=== PATIENT | female | born 1975 | race Caucasian/White ===

== ENCOUNTER → 2019-07-17 12:26 | Outpatient (BNVA) | payer MEDICARE, MEDICAID, SELFPAY | PROVIDERS: Family Provider Nurse Practitioner Family; PCP Nurse Practitioner Family; Visit Provider Nurse Practitioner Family | DX: J02.9 Acute pharyngitis, unspecified (principal); R68.89 Other general symptoms and signs; Z79.01 Long term (current) use of anticoagulants; M62.838 Other muscle spasm; E50.9 Vitamin A deficiency, unspecified; K21.9 Gastro-esophageal reflux disease without esophagitis; R05 Cough | CPT/HCPCS: 85610; 87081; 87804; 87880 ==

== ENCOUNTER 2019-07-29 11:52 | Outpatient (CLI) | payer MEDICARE, MEDICAID, SELFPAY ==
[2019-07-29 12:16] LABS: Hematocrit 41.5 % (37.0-47.0); Hemoglobin 13.3 g/dL (11.5-15.3); Lymphocytes # 1.4 10^3/uL (0.8-4.8); Lymphocytes % 27.3 %; Mean Corpuscular Volume 87.4 fL (81-99); Mean Platelet Volume 11.2 fL (7.4-10.4); Monocytes # 0.3 10^3/uL (0.2-0.9); Monocytes % 5.5 %; Neutrophils # 3.4 10^3/uL (1.8-7.7); Nucleated Red Blood Cells % 0 %; Platelet Count 251 10^3/cmm (130-400); Red Blood Count 4.75 10^6/uL (4.1-5.3); Red Cell Distribution Width 13.5 % (12.1-15.1); White Blood Count 5.1 10^3/uL (4.0-10.0)
[2019-07-29 12:53] LABS: Ferritin 55 ng/mL (15-150); Iron 59 ug/dL (37-145); Percent Saturation 16.6 % (20-50); Total Iron Binding Capacity 355 mcg/dl; Unsaturated Iron Binding 296 ug/dL (112-347)
--- NOTE | 2019-07-30 08:23 | ONC FU_ITS ---
Dr. Crespo Patient Follow-Up Note Patient: Heladio Branch Unit #: [id number]: [id number] Dicatated By: Rufus Crespo M.D.Date of Visit:Jul 29, 2019 Onc Med Follow-up/Prog Note Chief Complaint: Recurrent thromboembolism/anemia. History of Present Illness: This is a 44 year-old woman with recurrent thromboembolism. She also has had evidence of iron deficiency anemia. In November 2013 she was found on CT pulmonary angiogram to have multiple pulmonary emboli. Lower extremity venous Dopplers at that time were negative. She was treated with IV heparin followed by long-term warfarin therapy. I had seen her initially on 05/02/2018. She had been seen at [facility] 3 weeks earlier with pain and swelling in her left leg. A venous Doppler had shown evidence of deep vein thrombosis. Prior to that she had several subtherapeutic INRs. She had continued anticoagulation with warfarin, and the most recent INR prior to that visit had been therapeutic at 2.8. On evaluation, she was noted to be mildly anemic with hypochromic/microcytic red cell indices. Her transferrin saturation was low at 6.1% and ferritin was low at 16 ng/mL, consistent with iron deficiency. Her anti-cardiolipin antibody screen was negative. Her repeat venous Doppler studies showed no evidence for lower extremity deep vein thrombosis, and there was no evidence for underlying malignancy on CT scans of the chest, abdomen, and pelvis. She was advised to increase her iron supplement to twice daily, and she continued anticoagulation with warfarin. She has multiple medical illnesses including hypertension, coronary artery disease with previous myocardial infarction, and a suspected TIA. She also has obesity, obstructive sleep apnea, GERD, anxiety/depression, somatizations disorder, and PTSD. She had a prior history of iron deficiency anemia, which apparently was severe enough to require transfusion in 2017. There was also a reported history of substance abuse. INTERIM HISTORY: As of her follow-up visit on 02/26/2019 her hemoglobin remained borderline low at 12.5 g with hypochromic/microcytic red cell indices. Her transferrin saturation was low at 13.6 g with low ferritin at 27.0 ng/mL, consistent with iron deficiency. As the iron deficiency was not correcting on oral iron replacement, she was given parenteral iron replacement with a single infusion of Injectafer, which she tolerated well. She is seen for a follow-up visit. She continues to complain that she has no energy. She is able to do light work. Her ECOG score is 1. She has good appetite. She has not had fever. She does report having hot flashes and sweating. Approximately 2 weeks ago she started antibiotic therapy with amoxicillin for earache and chest congestion. She complains that she has had a constant headache ever since then. She has shortness of breath with activity. She says that she cannot walk to the mailbox now without getting out of breath. Her cough is getting better now. She still has some tightness in her chest. She has no GI complaints. She has some urinary frequency and bladder incontinence. Her menstrual periods are regular, but they are heavy, and she has associated clots. She has aching in her joints, but that does tend to be associated with bad weather. She has had tingling over her scalp associated with the headache. She also has some tingling in her hands. She has ongoing problems with anxiety/depression. Medications: ALPRAZolam 1 Tablet (of 2 mg) Oral t.i.d. PRN, Amoxicillin 1 Tablet (of 500 mg) Oral daily, ARIPiprazole 1 Tablet (of 2 mg) Oral daily, cbd gummies 1 Caplet daily, Desipramine HCl 1 Tablet (of 75 mg) Oral daily, Desvenlafaxine Succinate ER 1 Tablet (of 100 mg) Tablet SR 24 HR Oral daily, hydroCHLOROthiazide 1 Tablet (of 12.5 mg) Oral daily, Ibuprofen 2 Tablet (of 200 mg) Oral PRN, Isosorbide Mononitrate 1 Tablet (of 20 mg) Oral b.i.d., Metoprolol Tartrate 1 Tablet (of 25 mg) Oral b.i.d., Naproxen 1 Tablet (of 500 mg) Oral PRN, Omeprazole 1 Capsule (of 20 mg) Capsule Delayed Release Oral daily, QUEtiapine Fumarate 1 Tablet (of 300 mg) Oral at bedtime, Warfarin Sodium (2 mg) Tablet Oral Take as Directed Allergies: Cymbalta, Effexor XR, fish, LaMICtal, Lexapro, PROzac, Topamax, and Wellbutrin. Review of Systems: Constitutional - She has no energy. She does all of her housework. Her appetite is good and her weight is up 5 pounds. No fever or chills. She has hot flashes and sweating, both during the day and at night. ECOG score is 1, ENMT - No sinus congestion/drainage. No mouth sores. She has a sore throat. No difficulty swallowing, Hematologic/Lymphatic - She bruises easily, Respiratory - She has shortness of breath with activity. No cough. No pleuritic pain or hemoptysis, Cardiovascular - She has chest pressure and tightness. No palpitations, Gastrointestinal - No nausea or vomiting. No heartburn or acid reflux. No diarrhea or constipation. No blood in the stool or black stools, Genitourinary (F) - No dysuria or hematuria. She has urinary frequency. No urgency. She has incontinence, Musculoskeletal - Her bones and joints ache. She feels that is due to the weather, Integumentary - No skin complications, Neurologic - She started taking Amoxicillin for chest congestion about 2 weeks ago. Since then, she has had a headache that does not completely go away, even with medication. The pain is in the base of her neck and her hairline feels tingly. No dizziness. She has tingling in her hands, Psychiatric - She has anxiety and depression. No insomnia. Vital Signs: Performed on Jul 29, 2019 13:52 Height - 64.00 in BP - 148/100 mm(hg) (HIGH) Performed on Jul 29, 2019 13:11 Height - 64.00 in Weight - 335.8 lbs (HIGH) BSA - 2.44 sq.m BMI - 57.64 (HIGH) Temperature - 97.2 F (LOW) Pulse - 98 /min Respiration - 24 /min BP - 177/103 mm(hg) (HIGH) O2 Sat - 98 % Pain - 10 Physical Examination: Constitutional - She does not appear acutely ill. , Eyes - Sclerae nonicteric. Conjunctivae clear, ENMT - No lesions noted in the oral cavity, Hematologic/Lymphatic - No cervical, clavicular, or axillary adenopathy, Respiratory - Lungs sound clear, Cardiovascular - Heart is regular with no murmur, gallop or rub noted, Abdomen - Distended. Liver and spleen are not enlarged. There is no abdominal mass or ascites noted and there is no inguinal adenopathy, Extremities - No edema, Neurologic - No focal neurologic deficits noted. Lab/Imaging: Test performed on Jul 29, 2019 11:59 Ferritin 55 ng/mL Iron 59 ug/dL UIBC 296 ug/dL WBC 5.1 10 3/uL RBC 4.75 10 6/uL HGB 13.3 g/dL HCT 41.5 % MCV 87.4 fL MCH 28.0 pg MCHC 32.0 g/dL RDW 13.5 % Platelet Count 251 10 3/cmm MPV 11.2 fL Neutrophils 3.4 10 3/uL Lymphocytes 1.4 10 3/uL Monocytes 0.3 10 3/uL Eosinophils 0.0 10 3/uL Basophils 0.0 10 3/uL Neutrophil % 67.0 % Lymphocyte % 27.3 % Monocyte % 5.5 % Eosinophil % 0.0 % Basophils % 0.0 % Test performed on Jun 04, 2019 14:26 Sodium 137 mmol/L Potassium 3.7 mmol/L % Iron Saturation 18.2 % Chloride 98 mmol/L CO2 25 mmol/L Anion Gap 17.7 BUN 5 mg/dL Creatinine 0.9 mg/dL Cr Clearance (Est) 192.5400 mL/min eGFR 68.7 mL/min Glucose 106 mg/dl Calcium 9.0 mg/dL Protein, Total 7.5 g/dL Albumin 4.5 g/dL Globulin 3.0 gm/dL Bilirubin, Total 0.2 mg/dL ALT (SGPT) 23 U/L AST (SGOT) 20 U/L Alkaline Phosphatase 108 U/L Test performed on Feb 26, 2019 09:35 Cholesterol, Total 193 mg/dL TSH 1.61 uIU/mL Vitamin B12 343 pg/mL Triglycerides 173 mg/dL LDL Cholesterol 115 mg/dL HDL Cholesterol 43 mg/dL Cholesterol/HDL Ratio 4.49 mg/dL LDL / HDL Ratio 2.67 RATIO Impression: 1. Patient with recurrent thromboembolism including an episode of unprovoked pulmonary emboli in November 2013 and a recent episode of left lower extremity deep vein thrombosis while on anticoagulation with warfarin. The 2nd episode may have been related to subtherapeutic anticoagulation. 2. She has iron deficiency anemiafor which she has been on oral iron supplementation. Her other medical illnesses include: 3. Hypertension. 4. She has reported history of myocardial infarction in 2007. It is uncertain how well that was documented. Records indicate she had normal stress test in 2014. 5. Obesity. 6. Obstructive sleep apnea. 7. GERD. 8. Anxiety/depression. 9. PTSD. 10. Somatizations disorder. 11. There is reported history of substance abuse. Her evaluation in April 2018 showed no underlying cause for thromboembolism. She then continued on anticoagulation with warfarin with no further thrombosis. During follow-up she continued to have significant fatigue. As of her visit on 02/26/2019 she remained mildly anemic, and her serum iron studies and ferritin were clearly consistent with iron deficiency. As she was not correcting the iron deficiency with oral iron, she was given parenteral iron replacement with a single infusion of Injectafer. Her follow-up laboratory studies in March did show significant increase in the transferrin saturation and ferritin. Since then her hemoglobin has remained adequate at 13.8 g, but the transferrin saturation and ferritin are again borderline low, and it appears likely that she is getting iron deficient again. Plan: For now she will remain on oral iron supplementation. She will continue anticoagulation with warfarin. I will recheck laboratory studies in 3 months. I will tentatively plan a follow-up visit in 6 months. If she becomes more overtly iron deficient, she will be given further parenteral iron replacement with Injectafer. Signed By: Rufus Crespo M.D. <<Signature on File>>
== END 2019-07-29 11:53 | disposition home or self-care (01) ==
LOC: ONCMED 11:53
PROVIDERS: Visit Provider Internal Medicine Medical Oncology
DX: D50.9 Iron deficiency anemia, unspecified (principal); I10 Essential (primary) hypertension; I25.10 Atherosclerotic heart disease of native coronary artery without angina pectoris; I25.2 Old myocardial infarction; E66.9 Obesity, unspecified; G47.33 Obstructive sleep apnea (adult) (pediatric); K21.9 Gastro-esophageal reflux disease without esophagitis; F41.8 Other specified anxiety disorders; F43.10 Post-traumatic stress disorder, unspecified; Z79.01 Long term (current) use of anticoagulants; Z86.711 Personal history of pulmonary embolism; Z86.718 Personal history of other venous thrombosis and embolism
CPT/HCPCS: 82728; 83540; 83550; 85025; 99214

== ENCOUNTER 2019-08-07 19:40 | Emergency (ER) | payer MEDICARE, MEDICAID, SELFPAY ==
[2019-08-07 19:41] VITALS: BP 158/111; PULSE 114; RESP 18; TEMP 36.9; O2SAT 97
[2019-08-07 19:42] VITALS: BP 170/89; PULSE 108; RESP 16; TEMP 36.9; O2SAT 96; BMI 58.0
--- NOTE | 2019-08-07 20:02 | XR_ITS ---
WS: [id number] XR chest 1V portable [id number] REASON FOR EXAM: syncope FINDINGS: Comparisons were made to April 23, 2019. The heart and mediastinal interfaces were normal. The lung gomez are well aerated. No pneumonia, pleural effusion, pulmonary edema, or mass effect. The hilum and apices normal. No osseous abnormalities. XR/XR chest 1V portable [id number] IMPRESSION: Negative chest for acute pathology.
--- NOTE | 2019-08-07 20:02 | CTR_ITS ---
PROCEDURE INFORMATION: Exam: CT Head Without Contrast Exam date and time: 08/07/2019 8:32 PM Age: 44 years old Clinical indication: Syncope and collapse TECHNIQUE: Imaging protocol: Computed tomography of the head without contrast. Total DLP: 845.88 mGy-cm Radiation optimization: All CT scans at this facility use at least one of these dose optimization techniques: automated exposure control; mA and/or kV adjustment per patient size (includes targeted exams where dose is matched to clinical indication); or iterative reconstruction. COMPARISON: No relevant prior studies available. FINDINGS: Brain: Normal. No hemorrhage or CT evidence of acute infarction is seen. No mass effect. Ventricles: Normal. No ventriculomegaly. Bones/joints: Unremarkable. No acute fracture. Sinuses: Mild left sphenoid and maxillary sinusitis is appreciated. Mastoid air cells: Visualized mastoid air cells are well aerated. Soft tissues: Unremarkable. CT/CT head wo con* [id number] IMPRESSION: No acute intracranial abnormality. Mild sinusitis. Radiation Dose CTDIVOL = (mGy): DLP = 845.88 (mGy-cm)
[2019-08-07] MEDS: sodium chloride 0.9% 1,000 ML 999 ML IV ×2 (20:08→20:24)
--- NOTE | 2019-08-07 20:08 | PC.NURSE ---
Introduced self to patient and initiated vital signs. Patient presents A&O x 4. NAD, ABCs intact, MAEW and agreeable to treatment. Respirations are even and unlabored. Pt states that the chief complaint for the ER visit today is due to a syncopal episode earler in day and HBP. Pt denies any vision disturbances or lightheadedness but does feel dizzy at present. Bed left in lowest position in semi-fowlers with side rails up.Reassured patient of needs and will continue to monitor.
--- NOTE | 2019-08-07 20:11 | W.ED.NEUROSD ---
HPI - Neuro Symptoms/Deficit General: Chief Complaint: Neuro Symptoms/Deficit Stated Complaint: syncope Time Seen by Provider: 08/07/19 20:02 History of Present Illness: HPI Narrative: Patient comes in today with complaints of syncopal episode. Patient has been diagnosed with the flu 2 days ago at the hospital at [facility]. Patient was ordered Tamiflu and has had 3 doses of the medication. Patient today went out to take the trash out and lost consciousness and fell to the ground. Patient then was brought into the emergency department for concerns of low back pain and diarrhea. Patient did have elevated blood pressure in route to the emergency room and was given labetalol 20 mg and Phenergan for nausea. Patient reports that she has been ill on and off for the last 3 weeks first with an upper respiratory infection and then strep throat. Patient appears mildly unwell. Patient appears in no pain. Patient does have a history of pulmonary emboli which she takes warfarin for. Patient also takes metoprolol and isosorbide routinely. Associated symptoms: Reports malaise Review of Systems General: Reports: 10 or more systems reviewed and unremarkable except in HPI and below Const: Reports: body aches and malaise Resp: Reports: non-productive cough PFSH ED PFSH: Social History Smoking and tobacco status: never smoked Female Reproductive History: Date of last menstrual period: 07/10/19 NIH stroke score NIHSS: Level Of Consciousness - 1a: 0 Level Of Consciousness Questions - 1b: Both Correct Level Of Consciousness Commands - 1c: Both Correct Best Gaze - 2: Normal Visual Aragon - 3: No Visual Loss Facial Palsy - 4: Normal Motor Arm Right - 5: No Drift Motor Arm Left - 5: No Drift Motor Leg Right - 6: No Drift Motor Leg Left - 6: No Drift Limb Ataxia - 7: Absent Sensory - 8: Normal Best Language - 9: No Aphasia Dysarthia - 10: Normal Extinction And Inattention - 11: 0 Score: Total Score: 0 Physical Exam Const: COMMON NORMALS: no apparent distress and oriented x3 GENERAL APPEARANCE: cooperative HENMT: COMMON NORMALS: normocephalic, external ears normal, EAC's normal, TM's normal bilaterally and external nose normal HEAD & SCALP: normal to inspection and normocephalic FACE & SINUS: normal facial exam NOSE: external nose normal GENERAL EAR: hearing not grossly impaired EXTERNAL EAR: Yes external ears normal EXTERNAL AUDITORY CANAL: EAC's normal TYMPANIC MEMBRANE: TM's normal bilaterally MOUTH: oral and palatal mucosa normal THROAT: posterior oropharynx normal Eye: COMMON NORMALS: PERRL and EOMs intact bilaterally PUPIL: Yes PERRL Neck/C-Spine: COMMON NORMALS: full ROM and no lymphadenopathy Lymph: LYMPHATIC: no lymphedema noted Chest: COMMONS NORMALS: inspection of chest normal and palpation of chest normal Resp: COMMON NORMALS: normal respiratory effort AUSCULTATION: wheezes Cardio: COMMON NORMALS: regular rhythm RATE: tachycardic RHYTHM: regular rhythm GI: COMMON NORMALS: normal to inspection, nondistended, normoactive bowel sounds and non-tender : COMMON NORMALS: Yes no CVA tenderness BLADDER/KIDNEY EXAM: Yes no CVA tenderness Back/Pelvis: COMMON NORMALS: no CVA tenderness and thoracic and lumbar spine normal to inspection Extremity: COMMON NORMALS: normal to inspection GENERAL: No edema Neuro: COMMON NORMALS: oriented x3, moves all extremities and no focal motor deficits Psych: COMMON NORMALS: mental status grossly normal and cooperative Skin: COMMON NORMALS: no rashes or lesions noted GENERAL SKIN EXAM: no rashes or lesions noted Course ED course: 0010, orthostatic vitals normal, heart rate remains elevated. reviewed labs and exam with patient. Patient request medication for headache Vital Signs: Vital signs: Vital Signs Temperature 98.6 F 08/07/19 20:41 Pulse Rate 156 H 08/08/19 00:21 Respiratory Rate 20 H 08/07/19 20:41 Blood Pressure 147/103 08/08/19 00:21 Pulse Oximetry 67 L 08/07/19 20:41 MDM - Neuro Symptoms/Deficit MDM Narrative: Medical decision making narrative: Patient comes in today for concerns of syncopal episode. Patient was diagnosed with the flu 2 days ago. Patient is on her third dose of oseltamivir. Exam notes respirations are even lungs are clear to auscultation. No focal neural deficits. Skin is warm and dry and color is pink. Vital signs are normal except for some elevation in pulse and elevation of blood pressure. Differential diagnosis includes emergency hypertension crisis, influenza B, sepsis, ACS, CVA, dehydration. Patient was infused with 2 L of IV fluids, was medicated with clonidine for high elevated blood pressure, and was given hydrocodone and Ativan for complaints of headache and anxiety. Patient continued to have symptoms of nausea and headache and then she was medicated with Reglan and Benadryl. Patient was recommended to go home and rest drink plenty of fluids and continue with the oseltamivir. Also recommended patient be treated for sinusitis due to positive sinus infection noted on the CT scan. Patient reports understanding agreed to plan. Lab Data: Labs: Lab Results 08/07/19 08/07/19 08/07/19 Range/Units 20:30 20:30 20:30 WBC 4.5 (4.0-10.0) 10^3/ uL RBC 4.77 (4.1-5.3) 10^6/u L Hgb 13.2 (11.5-15.3) g/dL Hct 41.3 (37.0-47.0) % MCV 86.6 (81-99) fL MCH 27.7 L (28.0-34.0) pg MCHC 32.0 (30.0-36.0) g/dL RDW 13.6 (12.1-15.1) % Plt Count 226 (130-400) 10^3/c mm MPV 11.2 H (7.4-10.4) fL Neut % (Auto) 57.0 % Lymph % (Auto) 33.0 % [place] % (Auto) 9.8 % Eos % (Auto) 0.0 % Baso % (Auto) 0.0 % Neut # (Auto) 2.6 (1.8-7.7) 10^3/u L Lymph # (Auto) 1.5 (0.8-4.8) 10^3/u L [place] # (Auto) 0.4 (0.2-0.9) 10^3/u L Eos # (Auto) 0.0 (0.0-0.8) 10^3/u L Baso # (Auto) 0.0 (0.0-0.1) 10^3/u L Nucleated RBC % (a uto) 0 % Nucleated RBCs # 0.0 /100WBC PT (10.5-13.3) SECO NDS INR (0.8-1.2) Sodium 136 (136-145) mmol/L Potassium 3.7 (3.5-5.1) mmol/L Chloride 99 (98-107) mmol/L Carbon Dioxide 26 (22-29) mmol/L Anion Gap 14.7 (5-19) BUN 6 (6-20) mg/dL Creatinine 1.1 H (0.5-0.9) mg/dL GFR Calculation 54.5 L (90-130) mL/min Glucose 130 H (65-115) mg/dL Lactic Acid (0.5-2.2) mmol/L Calcium 9.3 (8.5-10.5) mg/dL Total Bilirubin 0.2 (0.15-1.2) mg/dL AST 25 (0-32) U/L ALT 32 (0-33) U/L Alkaline Phosphata se 140 H (35-105) IU/L Troponin T Baselin e 9 (0-10) ng/mL Troponin T 120 Min chrissy (0-10) ng/mL Delta Troponin T (0-10) ABS# Total Protein 7.7 (6.6-8.7) g/dL Albumin 3.9 (3.5-5.2) g/dL Globulin 3.8 (1.3-4.6) g/dL 08/07/19 08/07/19 08/07/19 Range/Units 20:30 20:30 22:45 WBC (4.0-10.0) 10^3/ uL RBC (4.1-5.3) 10^6/u L Hgb (11.5-15.3) g/dL Hct (37.0-47.0) % MCV (81-99) fL MCH (28.0-34.0) pg MCHC (30.0-36.0) g/dL RDW (12.1-15.1) % Plt Count (130-400) 10^3/c mm MPV (7.4-10.4) fL Neut % (Auto) % Lymph % (Auto) % [place] % (Auto) % Eos % (Auto) % Baso % (Auto) % Neut # (Auto) (1.8-7.7) 10^3/u L Lymph # (Auto) (0.8-4.8) 10^3/u L [place] # (Auto) (0.2-0.9) 10^3/u L Eos # (Auto) (0.0-0.8) 10^3/u L Baso # (Auto) (0.0-0.1) 10^3/u L Nucleated RBC % (a uto) % Nucleated RBCs # /100WBC PT 27.50 H (10.5-13.3) SECO NDS INR 2.45 H (0.8-1.2) Sodium (136-145) mmol/L Potassium (3.5-5.1) mmol/L Chloride (98-107) mmol/L Carbon Dioxide (22-29) mmol/L Anion Gap (5-19) BUN (6-20) mg/dL Creatinine (0.5-0.9) mg/dL GFR Calculation (90-130) mL/min Glucose (65-115) mg/dL Lactic Acid 1.6 (0.5-2.2) mmol/L Calcium (8.5-10.5) mg/dL Total Bilirubin (0.15-1.2) mg/dL AST (0-32) U/L ALT (0-33) U/L Alkaline Phosphata se (35-105) IU/L Troponin T Baselin e (0-10) ng/mL Troponin T 120 Min chrissy 10.44 H (0-10) ng/mL Delta Troponin T 1.44 (0-10) ABS# Total Protein (6.6-8.7) g/dL Albumin (3.5-5.2) g/dL Globulin (1.3-4.6) g/dL EKG Data^: EKG 1: Attestation: I personally reviewed and interpreted this EKG as follows: (2039, sinus tach rate of 123 and regular, no ectopy, no ST elevation) Discharge Plan Discharge Patient Disposition: Home, Self-Care Clinical Impression: Acute rhinosinusitis, Influenza Headache Qualifiers: Headache type: unspecified Headache chronicity pattern: acute headache Intractability: not intractable Qualified Code(s): R51 - Headache Condition: Stable Prescriptions: New Flonase Allergy Relief 50 mcg/actuation spray,suspension 1 spray INTRANASAL BID Qty: 15.8 RF: 0 amoxicillin 500 mg tablet 1,000 mg PO BID 10 Days Qty: 40 RF: 0 Discharge Orders: Discharge Order (Routine); Ordered 08/08/19 Ordered By: Villa Encinas Discharge Diet: Usual diet Discharge Activity: Increase activity as tolerated Patient Instructions: Influenza (ED), Sinusitis - Acute Activity Restrictions/Additional Instructions: Encourage plenty of fluids Activity as tolerated Continue with routine medications Follow-up with primary care in three days Return to ER for worsening symptoms or new concerns Coding Level of Care Code ED Legal Collector for Marci Fwmaria ines Exam Comprehensive
[2019-08-07 20:39] LABS: Hematocrit 41.3 % (37.0-47.0); Hemoglobin 13.2 g/dL (11.5-15.3); Lymphocytes # 1.5 10^3/uL (0.8-4.8); Mean Corpuscular Hemoglobin 27.7 pg (28.0-34.0); Mean Corpuscular Volume 86.6 fL (81-99); Mean Platelet Volume 11.2 fL (7.4-10.4); Monocytes # 0.4 10^3/uL (0.2-0.9); Monocytes % 9.8 %; Neutrophils # 2.6 10^3/uL (1.8-7.7); Nucleated Red Blood Cells % 0 %; Platelet Count 226 10^3/cmm (130-400); Red Blood Count 4.77 10^6/uL (4.1-5.3); Red Cell Distribution Width 13.6 % (12.1-15.1); White Blood Count 4.5 10^3/uL (4.0-10.0)
[2019-08-07 20:41] VITALS: BP 197/115; PULSE 115; RESP 20; TEMP 37; O2SAT 67
[2019-08-07 21:08] LABS: INR 2.45 (0.8-1.2)
[2019-08-07 21:14] LABS: Alanine Aminotransferase 32 U/L (0-33); Albumin Level 3.9 g/dL (3.5-5.2); Alkaline Phosphatase 140 IU/L (35-105); Anion Gap 14.7 (5-19); Aspartate Amino Transferase 25 U/L (0-32); Blood Urea Nitrogen 6 mg/dL (6-20); Calcium 9.3 mg/dL (8.5-10.5); Carbon Dioxide 26 mmol/L (22-29); Chloride 99 mmol/L (98-107); Globulin 3.8 g/dL (1.3-4.6); Glomerular Filtration Rate 54.5 mL/min (90-130); Glucose 130 mg/dL (65-115); Potassium 3.7 mmol/L (3.5-5.1); Sodium 136 mmol/L (136-145); Total Bilirubin 0.2 mg/dL (0.15-1.2); Total Protein 7.7 g/dL (6.6-8.7)
[2019-08-07 21:15] LABS: Lactic Sepsis W/Reflex 1.6 mmol/L (0.5-2.2)
[2019-08-07 21:18] LABS: Troponin(5th) Baseline 9 ng/mL (0-10)
[2019-08-07] MEDS: cloNIDine 0.1 mg Tablet PO (21:26)
--- NOTE | 2019-08-07 22:02 | ECG_ITS ---
Measurements Intervals [place] Rate: 123 P: 37 NE: 161 QRS: -5 QRSD: 82 T: 50 QT: 307 QTc: 439 SINUS TACHYCARDIA ABNORMAL RHYTHM ECG No previous ECG available for comparison Electronically Signed On 08-08-2019 19:08:23 [employer] ANALYST LAB ANALYST by Daja Handy M.D. [email or web address]
[2019-08-07 23:16] LABS: Troponin 5 2HR 10.44 ng/mL (0-10); Troponin 5 2HR Delta 1.44 ABS# (0-10)
[2019-08-07 23:41] VITALS: BP 139/85; PULSE 130
[2019-08-08] VITALS: BP 148/100; PULSE 147; RESP 18; O2SAT 97
[2019-08-08] MEDS: HYDROcodone-acetaminophen 5-325 mg Tablet 1 TAB PO (00:11)
[2019-08-08] MEDS: LORazepam 2 mg/mL INJ 1 mL IVP (00:12)
[2019-08-08 00:21] VITALS: BP 147/103; BP 156/100; PULSE 156
[2019-08-08 01:00] VITALS: BP 165/119; PULSE 124; RESP 18; O2SAT 97
[2019-08-08] MEDS: diphenhydrAMINE 50 mg/mL SDV 1mL 25 MG IVP (01:11)
[2019-08-08] MEDS: metoclopramide 5 mg/mL SDV 2 mL 10 MG IVP (01:11)
== END 2019-08-08 01:15 | disposition home or self-care (01) ==
PROVIDERS: Emergency Provider Nurse Practitioner Family
DX: J01.30 Acute sphenoidal sinusitis, unspecified (principal); J01.00 Acute maxillary sinusitis, unspecified; J11.1 Influenza due to unidentified influenza virus with other respiratory manifestations; R51 Headache; Z79.01 Long term (current) use of anticoagulants; Z86.711 Personal history of pulmonary embolism
CPT/HCPCS: 36415; 70450; 71045; 80053; 83605; 84484; 85025; 85610; 93005; 96361; 96374; 96375; 99283; 99284; J1200; J2060; J2765; J7030

== ENCOUNTER → 2019-10-11 09:12 | Outpatient (BNVA) | payer MEDICARE, MEDICAID, SELFPAY | PROVIDERS: Visit Provider Nurse Practitioner Family | DX: N93.9 Abnormal uterine and vaginal bleeding, unspecified (principal); Z11.3 Encounter for screening for infections with a predominantly sexual mode of transmission; Z79.01 Long term (current) use of anticoagulants; R30.0 Dysuria; B37.2 Candidiasis of skin and nail | CPT/HCPCS: 81000; 81025; 85610; 87491; 87591; 87661 ==

== ENCOUNTER 2019-10-21 22:22 | Emergency (ER) | payer MEDICARE, MEDICAID, SELFPAY ==
[2019-10-21 22:27] VITALS: BP 163/118; PULSE 120; RESP 20; TEMP 36.7; O2SAT 99; BMI 58.0
--- NOTE | 2019-10-21 22:29 | ED_ITS ---
HPI - Abdominal Pain General: Chief Complaint: Vaginal Bleeding Stated Complaint: POSSIBLE MISCARRAIGE Time Seen by Provider: 10/21/19 22:24 History of Present Illness: HPI narrative: Heladio is a nice 44-year-old female who comes in complaining of vaginal bleeding and cramping. Patient states that this all began tonight. Patient at the end of April had a negative test but states that she had a positive home test yesterday. She is not using anything for protection with sex. She denies any other complaint such as nausea or vomiting, fever, chills or dysuria. She is unaware of anything that makes her symptoms better or worse. Associated Symptoms: Denies chills, coffee ground emesis, constipation, GI cramping, diarrhea, dysuria, fever(s), hematochezia, hematuria, hematemesis, melena, nausea, syncope and vomiting Related Data: Date of Last Menstrual Period: 07/10/19 Review of Systems General: Reports: other (negative unless marked) Const: Denies: fever, chills, body aches, fatigue, malaise or diaphoresis Eyes: Denies: change in vision or blurry vision ENMT: Denies: throat pain, painful swallowing, hoarseness, ear pain, ear discharge, Change in hearing or nasal discharge Card: Denies: chest pain, palpitations, irregular heart rhythm, syncope, pre- syncope, shortness of breath on exertion or shortness of breath when lying down Resp: Denies: shortness of breath, productive cough, non-productive cough, wheezing, coughing up blood or chest congestion GI: Reports: abdominal pain; Denies: nausea, vomiting, vomiting blood, coffee grounds in vomit, diarrhea, constipation, cramping, blood in stool or black tarry stool : Denies: flank pain, painful urination, urinary frequency, urinary urgency, decreased urine ouput, urinary incontinence or blood in urine Musc: Denies: neck pain, back pain, extremity pain, extremity swelling, joint pain, joint swelling, joint warmth or joint stiffness Skin/Breast: Denies: rash, skin tenderness or yellow skin Neuro: Denies: headache, numbness in extremities, weakness in extremities, changes in sensation, lack of coordination, difficulty walking, dizziness, vertigo or confusion Endo: Denies: excessive thirst, tired all the time, cold intolerance, excessive sweating, flushing or hot flashes Ander/Lymph: Denies: easy bruising, easy bleeding, petechiae or enlarged lymph nodes All/Imm: Denies: hives, throat swelling, tongue swelling, facial swelling or acute wheezing PFSH ED PFSH: Medical History Anticoagulated on warfarin Body mass index (BMI) 45.0-49.9, adult Depression HX past OD, follows with psychiatry Essential (primary) hypertension H/O deep venous thrombosis HTN (hypertension) Myalgia Obstructive sleep apnea Bi-pap 03/24, she has sent machine back and declines treatment Personal history of pulmonary embolism (~2012) Somatization disorder Substance abuse positive for Methadone and benzo at ER Symptom of leg swelling TIA (transient ischemic attack) Vitamin D deficiency Family History Mother Cancer Ovarian Hypertension Thyroid condition Grandmother Cancer ovarian and breast, Maternal Hypertension Social History Smoking and tobacco status: never smoked Second hand smoke exposure: Yes Alcohol intake: current Other details last substance use: last used 2013 per patient Lives independently: Yes Household members: none Housing: House Marital status: Single Number of children: 0 service: No Current occupational status: disabled History of recent travel: No Current gender identity: Female Female Reproductive History: Date of last menstrual period: 07/10/19 Physical Exam Const: COMMON NORMALS: no apparent distress, oriented x3, no limitations, healthy appearing and well nourished EXAM LIMITATIONS: no altered mental status GENERAL APPEARANCE: cooperative, well kempt and well developed ORIENTATION/CONSCIOUSNESS: Yes awake HENMT: COMMON NORMALS: normocephalic, head/scalp atraumatic, hearing grossly normal bilaterally, external ears normal, EAC's normal, external nose normal and moist oral mucous membranes HEAD & SCALP: normal to inspection, normocephalic and atraumatic FACE & SINUS: normal facial exam and face symmetric NOSE: external nose normal and nares normal EXTERNAL EAR: Yes external ears normal EXTERNAL AUDITORY CANAL: EAC's normal MOUTH: oral and palatal mucosa normal and tongue normal Eye: COMMON NORMALS: PERRL, EOMs intact bilaterally, conjunctivae normal and no scleral icterus GENERAL EYE: normal appearance of both eyes and normal light reflex CONJUNCTIVA: Yes conjunctivae normal SCLERA: sclerae normal CORNEA: Yes corneas normal PUPIL: Yes PERRL DIRECT OPHTHALMOSCOPY: Yes normal light reflex Neck/C-Spine: COMMON NORMALS: full ROM, no lymphadenopathy, supple, no meningeal signs and no JVD GENERAL: Yes normal visual inspection and Yes trachea midline CERVICAL SPINE: Yes cervical ROM normal Chest: COMMONS NORMALS: inspection of chest normal and palpation of chest normal Resp: COMMON NORMALS: normal respiratory effort, no retractions, no use of accessory muscles and clear to auscultation bilaterally EFFORT & INSPECTION: Yes able to speak in complete sentences AUSCULTATION: clear to auscultation bilaterally Cardio: COMMON NORMALS: no JVD, regular rate, regular rhythm, S1 normal heart sound, S2 normal heart sound, no gallops, no clicks, no murmurs and no rub JUGULAR VENOUS DISTENTION: no JVD RATE: regular rate RHYTHM: regular rhythm HEART SOUNDS: S1 normal and S2 normal GI: COMMON NORMALS: soft to palpation, non-tender, no hepatosplenomegaly and no masses INSPECTION: Yes normal to inspection PALPATION: Yes soft and Yes no hepatosplenomegaly : COMMON NORMALS: Yes no CVA tenderness and Yes bimanual exam normal BLADDER/KIDNEY EXAM: Yes no CVA tenderness EXTERNAL FEMALE EXAM: Yes normal appearance of the urethra SPECULUM EXAM - VAGINA: Yes vaginal bleeding Amount: scant SPECULUM EXAM - CERVIX: Yes cervical os closed, No cervical lesion and No cervical tenderness BIMANUAL EXAM - VAGINA & UTERUS: Yes normal bimanual exam and No cervical tenderness OB/EXTERNAL & SPECULUM: vaginal bleeding Back/Pelvis: COMMON NORMALS: no CVA tenderness, thoracic and lumbar spine normal to inspection, no thoracic nor lumbar tenderness and thoraco-lumbar ROM normal Extremity: COMMON NORMALS: normal to inspection, full ROM, normal capillary refill, no joint enlargement, no clubbing, cyanosis or edema and no calf tenderness Neuro: COMMON NORMALS: oriented x3, CN's II-XII intact bilaterally, moves all extremities, no focal motor deficits and no sensory deficits noted MENINGEAL SIGNS: Yes no meningeal signs Psych: COMMON NORMALS: mental status grossly normal, thought process normal, cooperative, affect normal, speech normal and activity/motor behavior normal APPEARANCE: Yes well kempt SPEECH: Yes normal speech THOUGHT PROCESS: normal thought process Skin: COMMON NORMALS: no rashes or lesions noted, skin turgor normal, no jaundice, no petechiae and no mottling GENERAL SKIN EXAM: no rashes or lesions noted and turgor normal Course Vital Signs: Vital signs: Vital Signs Temperature 98.1 F 10/21/19 22:27 Pulse Rate 86 10/22/19 01:45 Respiratory Rate 16 10/22/19 01:45 Blood Pressure 148/92 10/22/19 01:45 Pulse Oximetry 98 10/22/19 01:45 MDM - Abdominal Pain MDM Narrative: Medical decision making narrative: Heladio is a 44-year-old female who comes in with vaginal bleeding. She is gone through 2 pads prior to arrival tonight. Her INR is not significantly elevated only slightly up at 1.68. She was thought she could be but blood testing here shows that is negative. Ultrasound showed an ovarian cyst and with a delayed menstrual cycle I believe this is probably what is causing her pain. She is declining any further evaluation and care. I believe when she found out she was she was disappointed and does not want to go any further. She agrees to return should her symptoms change or worsen but at this time she would like to be discharged. On abdominal exam I found no focal tenderness. Vaginal exam only minimal tenderness in the uterine midline area but nothing in the right lower quadrant or left lower quadrant. Abdominal exam revealed no rebound, guarding or rigidity. Patient's symptoms are associate with vaginal bleeding which has stopped at this time. Patient agrees to return should her symptoms worsen. Differential Diagnosis: Differential diagnosis abdominal pain: Likely abdominal pain, acute appendicitis, constipation, diverticulitis, endometriosis, gastroenteritis, pancreatitis and small bowel obstruction Lab Data: Attestation: I reviewed the patient's lab results. Labs: Lab Results 10/21/19 10/21/19 10/21/19 Range/Units 23:20 23:20 23:20 WBC 8.9 (4.0-10.0) 10^3/ uL RBC 5.12 (4.1-5.3) 10^6/u L Hgb 14.1 (11.5-15.3) g/dL Hct 44.1 (37.0-47.0) % MCV 86.1 (81-99) fL MCH 27.5 L (28.0-34.0) pg MCHC 32.0 (30.0-36.0) g/dL RDW 13.8 (12.1-15.1) % Plt Count 294 (130-400) 10^3/c mm MPV 10.9 H (7.4-10.4) fL Neut % (Auto) 64.8 % Lymph % (Auto) 25.4 % Austin % (Auto) 9.6 % Eos % (Auto) 0.0 % Baso % (Auto) 0.0 % Neut # (Auto) 5.8 (1.8-7.7) 10^3/u L Lymph # (Auto) 2.3 (0.8-4.8) 10^3/u L Austin # (Auto) 0.9 (0.2-0.9) 10^3/u L Eos # (Auto) 0.0 (0.0-0.8) 10^3/u L Baso # (Auto) 0.0 (0.0-0.1) 10^3/u L Nucleated RBC % (a uto) 0 % Nucleated RBCs # 0.0 /100WBC PT 20.40 H (10.5-13.3) SECO NDS INR 1.68 H (0.8-1.2) Sodium 136 (136-145) mmol/L Potassium 3.5 (3.5-5.1) mmol/L Chloride 96 L (98-107) mmol/L Carbon Dioxide 25 (22-29) mmol/L Anion Gap 18.5 (5-19) BUN 8 (6-20) mg/dL Creatinine 1.1 H (0.5-0.9) mg/dL GFR Calculation 54.5 L (90-130) mL/min Glucose 132 H (65-115) mg/dL Calculated Osmolal ity 280 L (285-295) mOsm/k g Calcium 9.7 (8.5-10.5) mg/dL Total Bilirubin 0.2 (0.15-1.2) mg/dL AST 21 (0-32) U/L ALT 26 (0-33) U/L Alkaline Phosphata se 108 H (35-105) IU/L Total Protein 7.5 (6.6-8.7) g/dL Albumin 4.0 (3.5-5.2) g/dL Globulin 3.5 (1.3-4.6) g/dL TSH 3.85 (0.27-4.20) uIU/ mL HCG, Qual (Negative) Ser , Geovanna i-Qnt 0.50 mIU/mL Urine Color (Yellow) Urine Appearance (CLEAR) Urine pH (5-7) Ur Specific Gravit y (1.005-1.030) Urine Protein (Negative) Urine Glucose (UA) (Normal) Urine Ketones (Negative) Urine Blood (Negative) Urine Nitrate (Negative) Urine Bilirubin (NEGATIVE) Urine Urobilinogen (Negative) mg/dL Ur Leukocyte Ana Paula ase (Negative) Urine RBC (0-2) /hpf Urine WBC (0-5) /hpf Ur Squamous Epith Cells (0-5) Urine Bacteria (NONE) 10/21/19 10/21/19 Range/Units 23:20 23:20 WBC (4.0-10.0) 10^3/ uL RBC (4.1-5.3) 10^6/u L Hgb (11.5-15.3) g/dL Hct (37.0-47.0) % MCV (81-99) fL MCH (28.0-34.0) pg MCHC (30.0-36.0) g/dL RDW (12.1-15.1) % Plt Count (130-400) 10^3/c mm MPV (7.4-10.4) fL Neut % (Auto) % Lymph % (Auto) % Austin % (Auto) % Eos % (Auto) % Baso % (Auto) % Neut # (Auto) (1.8-7.7) 10^3/u L Lymph # (Auto) (0.8-4.8) 10^3/u L Austin # (Auto) (0.2-0.9) 10^3/u L Eos # (Auto) (0.0-0.8) 10^3/u L Baso # (Auto) (0.0-0.1) 10^3/u L Nucleated RBC % (a uto) % Nucleated RBCs # /100WBC PT (10.5-13.3) SECO NDS INR (0.8-1.2) Sodium (136-145) mmol/L Potassium (3.5-5.1) mmol/L Chloride (98-107) mmol/L Carbon Dioxide (22-29) mmol/L Anion Gap (5-19) BUN (6-20) mg/dL Creatinine (0.5-0.9) mg/dL GFR Calculation (90-130) mL/min Glucose (65-115) mg/dL Calculated Osmolal ity (285-295) mOsm/k g Calcium (8.5-10.5) mg/dL Total Bilirubin (0.15-1.2) mg/dL AST (0-32) U/L ALT (0-33) U/L Alkaline Phosphata se (35-105) IU/L Total Protein (6.6-8.7) g/dL Albumin (3.5-5.2) g/dL Globulin (1.3-4.6) g/dL TSH (0.27-4.20) uIU/ mL HCG, Qual Negative (Negative) Ser , Geovanna i-Qnt mIU/mL Urine Color Red (Yellow) Urine Appearance Cloudy (CLEAR) Urine pH 6 (5-7) Ur Specific Gravit y 1.015 (1.005-1.030) Urine Protein Trace (Negative) Urine Glucose (UA) Norm (Normal) Urine Ketones Negative (Negative) Urine Blood 3+ H (Negative) Urine Nitrate Negative (Negative) Urine Bilirubin Neg (NEGATIVE) Urine Urobilinogen Norm (Negative) mg/dL Ur Leukocyte Ana Paula ase Negative (Negative) Urine RBC >100 H (0-2) /hpf Urine WBC 10-15 H (0-5) /hpf Ur Squamous Epith Cells 5-10 H (0-5) Urine Bacteria 1+ H (NONE) Imaging Data ^: US: Radiologist's impression: [address] [address] Ultrasound Report Signed Patient: Heladio Branch Unit #: [id number] : 1975 Age/Sex: 44 / F ADM Date: 10/21/19 Loc: ER Room/Bed: Attending Dr: Ordering Provider/Ordering MD: Liv Cedillo DO Date of Service: 10/21/19 Procedure(s): US transvaginal [id number] Accession Number(s): [id number] Report Number: [id number] PROCEDURE INFORMATION: Exam: US Duplex Artery or Vein of the Abdominal and/or Reproductive Organs, Limited Ovaries Exam date and time: 10/21/2019 11:48 PM Clinical indication: Pelvic pain; Patient HX: PT thought see might be from home test got beta hcg neg after US done TECHNIQUE: Imaging protocol: Real-time duplex ultrasound scan of the arterial or venous flow with sharif scale, color Doppler flow and spectral waveform analysis with image documentation. Limited duplex exam focused on the ovaries. Duplex images required to evaluate for torsion and other vascular conditions. COMPARISON: No relevant prior studies available. FINDINGS: Right adnexa: Normal duplex of the ovary. Normal Doppler waveforms and color flow. No evidence of ovarian torsion. Left adnexa: Normal duplex of the ovary. Normal Doppler waveforms and color flow. No evidence of ovarian torsion. IMPRESSION: No sign of ovarian torsion. PROCEDURE INFORMATION: Exam: US Pelvis, Transvaginal Exam date and time: 10/21/2019 11:48 PM Age: 44 years old Clinical indication: Pelvic pain; Patient HX: PT thought see might be from home test got beta hcg neg after US done TECHNIQUE: Imaging protocol: Real-time transvaginal pelvic ultrasound with image documentation. Transvaginal imaging was used for better evaluation of the endometrium and adnexa. COMPARISON: US pelvic with transvaginal 03/13/2016 1:19 AM FINDINGS: Uterus/cervix: The uterus is anteverted. Contours are normal. The uterus measures 7.5 x 5.5 x 4.8 cm. Right adnexa: The right ovary is morphologically normal. The right ovary measures 2.2 x 1.6 x 1.5 cm. Left adnexa: There is a cystic structure in the left adnexa adjacent to the ovary containing multiple thin internal septations and questionable nodularity along the septum in the center of the lesion. There is no definite blood flow within the lesion. The left ovary is morphologically normal. The left ovary measures 2.4 x 2.2 x 1.7 cm. There is normal blood flow in the left ovary. Free fluid: None. US/US transvaginal [id number] IMPRESSION: 1. No intrauterine . 2. Multiseptate cyst in the left adnexa. Recommend 6-12 week follow-up to ensure resolution. If the cyst is unchanged on follow-up, then hemorrhagic cyst is unlikely, and continued follow-up with either US or MR should then be considered. If these studies do not confirm an endometrioma or dermoid, then surgical evaluation should be considered. Dictated By: Colton Rosas MD Signed By: Colton Rosas MD Signed Date/Time: 10/22/19 0004 DD/ 0003 Discharge Plan Discharge Patient Disposition: Home, Self-Care Clinical Impression: Ovarian cyst Qualifiers: Laterality: left Qualified Code(s): N83.202 - Unspecified ovarian cyst, left side Condition: Stable Prescriptions: No Action aripiprazole [Abilify] 2 mg tablet 2 mg PO ONCE RF: 0 peg [id number]-sod chlor-potass cit 17 gram/ scoop kit 17 gm PO DAILY RF: 0 albuterol sulfate [Ventolin HFA] 90 mcg/actuation HFA aerosol inhaler 2 puff INHALATION QID RF: 0 acetaminophen [Tylenol 8 Hour] 650 mg tablet extended release 650 mg PO Q8H PRNRF: 0 desipramine 25 mg tablet 75 mg PO ONCE RF: 0 pqpviuezitsc-Gz-pswh-minerals 18-0.4 mg tablet 1 tab PO DAILY RF: 0 ferrous sulfate 325 mg (65 mg iron) tablet 325 mg PO BID RF: 0 cyclobenzaprine 10 mg tablet 10 mg PO TID PRN (Reason: muscle spasm) Qty: 30 RF: 0 omeprazole 20 mg capsule,delayed release(DR/EC) 20 mg PO DAILY 30 Days Qty: 30 RF: 3 warfarin 2 mg tablet 2 mg PO ONCE Qty: 65 RF: 2 amlodipine 5 mg tablet 5 mg PO DAILY 30 Days Qty: 30 RF: 3 chlorthalidone 25 mg tablet 25 mg PO DAILY 30 Days Qty: 30 RF: 4 potassium chloride 10 mEq capsule, extended release 10 meq PO DAILY 30 Days Qty: 30 RF: 4 desvenlafaxine succinate [Pristiq] 100 mg tablet extended release 24 hr 100 mg PO DAILY RF: 0 quetiapine 300 mg tablet 300 mg PO DAILY RF: 0 atorvastatin 40 mg tablet 40 mg PO DAILY RF: 0 sulfamethoxazole-trimethoprim [Bactrim DS] 800-160 mg tablet 1 tab PO BID 7 Days Qty: 14 RF: 0 nystatin 100,000 unit/gram cream 1 applic TOPICAL DAILY Qty: 15 RF: 0 metoprolol tartrate 50 mg tablet 50 mg PO BID Qty: 60 RF: 1 tizanidine 4 mg tablet 4 mg PO TID PRN (Reason: muscle spasticity) Qty: 90 RF: 1 isosorbide mononitrate 20 mg tablet 20 mg PO BID Qty: 120 RF: 2 Discharge Orders: Discharge Order (Routine); Ordered 10/22/19 Ordered By: Liv Cedillo Referrals: Christa hCew APN [Primary Care Provider] - 1-3 days Discharge Diet: Advance as tolerated Discharge Activity: Increase activity as tolerated Patient Instructions: Menstruation (ED), Ovarian Cyst (ED) Activity Restrictions/Additional Instructions: Please return to the ER immediately for any of the signs or symptoms listed on your discharge instruction sheets, worsening/changing of your symptoms, you are not getting better as quickly as expected, or for ANY other cause or concerns. Be certain to follow-up with Dr. Tomlin or the plant chief of your choice as your cyst will need to be followed. It is imperative you have a repeat ultrasound to be certain that this resolves and does not turn into a mass or some type of cancer. Return to the ER for increased pain, fever, vomiting, or for any other cause for concern. Discharge Date/Time: 10/22/19 01:47 Coding Level of Care Code ED Senior Relationship Manager for [facility] Fwd Exam Comprehensive
[2019-10-21] MEDS: sodium chloride 0.9% 1,000 ML 999 ML IV (23:17)
[2019-10-21] MEDS: morphine 4 mg/mL SDV 1 mL IVP (23:17)
[2019-10-21] MEDS: metoclopramide 5 mg/mL SDV 2 mL 10 MG IV (23:17)
[2019-10-21 23:34] LABS: Hematocrit 44.1 % (37.0-47.0); Hemoglobin 14.1 g/dL (11.5-15.3); Lymphocytes # 2.3 10^3/uL (0.8-4.8); Lymphocytes % 25.4 %; Mean Corpuscular Hemoglobin 27.5 pg (28.0-34.0); Mean Corpuscular Volume 86.1 fL (81-99); Mean Platelet Volume 10.9 fL (7.4-10.4); Monocytes # 0.9 10^3/uL (0.2-0.9); Monocytes % 9.6 %; Neutrophils # 5.8 10^3/uL (1.8-7.7); Neutrophils % 64.8 %; Nucleated Red Blood Cells % 0 %; Platelet Count 294 10^3/cmm (130-400); Red Blood Count 5.12 10^6/uL (4.1-5.3); Red Cell Distribution Width 13.8 % (12.1-15.1); White Blood Count 8.9 10^3/uL (4.0-10.0)
[2019-10-21 23:41] LABS: HCG, Serum Qual Negative (Negative)
[2019-10-21 23:44] LABS: Add Urine Culture? Yes; Bacteria Urine 1+; Bilirubin Urine Neg (NEGATIVE); Blood Urine 3+ (Negative); Glucose Urine UA Norm (Normal); Ketones Urine Negative (Negative); Leukocyte Esterase Urine Negative (Negative); Nitrate Urine Negative (Negative); Protein Urine Trace (Negative); RBC Urine >100 /hpf (0-2); Specific Gravity, Urine 1.015 (1.005-1.030); Urine Appearance Cloudy (CLEAR); Urine Color Red (Yellow); Urobilinogen Urine Norm (Negative); pH Urine 6 (5-7)
[2019-10-21 23:54] LABS: INR 1.68 (0.8-1.2)
[2019-10-21 23:58] LABS: Thyroid Stimulating Hormone 3.85 uIU/mL (0.27-4.20)
[2019-10-22 00:09] LABS: Alanine Aminotransferase 26 U/L (0-33); Alkaline Phosphatase 108 IU/L (35-105); Anion Gap 18.5 (5-19); Aspartate Amino Transferase 21 U/L (0-32); Blood Urea Nitrogen 8 mg/dL (6-20); Calcium 9.7 mg/dL (8.5-10.5); Carbon Dioxide 25 mmol/L (22-29); Chloride 96 mmol/L (98-107); Globulin 3.5 g/dL (1.3-4.6); Glomerular Filtration Rate 54.5 mL/min (90-130); Glucose 132 mg/dL (65-115); Osmolality Calculated 280 mOsm/kg (285-295); Potassium 3.5 mmol/L (3.5-5.1); Sodium 136 mmol/L (136-145); Total Bilirubin 0.2 mg/dL (0.15-1.2); Total Protein 7.5 g/dL (6.6-8.7)
[2019-10-22] MEDS: sodium chloride 0.9% 1,000 ML 100 ML IV (00:56)
[2019-10-22] MEDS: sodium chloride 0.9% 1,000 ML 999 ML IV (01:01)
[2019-10-22] MEDS: morphine 4 mg/mL SDV 1 mL IVP (01:01)
[2019-10-22 01:45] VITALS: BP 148/92; PULSE 86; RESP 16; O2SAT 98
[2019-10-22 10:06] LABS: Ferritin 45 ng/mL (15-150); Iron 46 ug/dL (37-145); Percent Saturation 12.2 % (20-50); Total Iron Binding Capacity 377 mcg/dl; Unsaturated Iron Binding 331 ug/dL (112-347)
== END 2019-10-22 01:47 | disposition home or self-care (01) ==
PROVIDERS: Emergency Provider Emergency Medicine; PCP Nurse Practitioner Family
DX: N83.202 Unspecified ovarian cyst, left side (principal); Z79.01 Long term (current) use of anticoagulants; I10 Essential (primary) hypertension; Z86.718 Personal history of other venous thrombosis and embolism; Z86.73 Personal history of transient ischemic attack (TIA), and cerebral infarction without residual deficits; R10.9 Unspecified abdominal pain
CPT/HCPCS: 12345; 76830; 80053; 81001; 82728; 83540; 83550; 84443; 84702; 84703; 85025; 85610; 87077; 87086; 87186; 87210; 87491; 87591; 96361; 96374; 96375; 96376; 99281; 99283; J2270; J2765; J7030

== ENCOUNTER → 2019-10-30 10:30 | Outpatient (BNVA) | payer MEDICARE, MEDICAID, SELFPAY | PROVIDERS: PCP Nurse Practitioner Family; Visit Provider Obstetrics & Gynecology | DX: N93.9 Abnormal uterine and vaginal bleeding, unspecified (principal); R19.8 Other specified symptoms and signs involving the digestive system and abdomen | CPT/HCPCS: 88175 ==

== ENCOUNTER → 2019-11-13 13:49 | Outpatient (BNVA) | payer MEDICARE, SELFPAY | PROVIDERS: PCP Nurse Practitioner Family; Visit Provider Obstetrics & Gynecology | DX: N93.9 Abnormal uterine and vaginal bleeding, unspecified (principal) | CPT/HCPCS: 81025 ==

== ENCOUNTER → 2019-11-14 10:43 | Outpatient (BNVA) | payer MEDICARE, MEDICAID, SELFPAY | PROVIDERS: PCP Nurse Practitioner Family; Visit Provider Obstetrics & Gynecology | DX: N93.9 Abnormal uterine and vaginal bleeding, unspecified (principal) | CPT/HCPCS: 88305 ==

== ENCOUNTER 2019-11-15 22:08 | Inpatient (IN) | payer MEDICARE, MEDICAID, SELFPAY ==
[2019-11-15 22:12] VITALS: BP 164/112; PULSE 122; RESP 20; TEMP 36.5; O2SAT 98; BMI 58.0
--- NOTE | 2019-11-15 22:28 | W.ED.FEMALGU ---
HPI - Female Genitourinary General: Chief complaint: Vaginal Bleeding Stated complaint: VAGINAL BLEEDING POST PROCEDURE Time Seen by Provider: 11/15/19 22:19 History of Present Illness: HPI Narrative: Heladio is a 44-year-old female who comes in complaining of vaginal bleeding. She had a LEEP procedure performed [address] Jason and in the office. She was recovering normally until she started to have some brown type discharge but then after 5 PM started to have heavier bleeding. She states she is going through a pad about every hour and a half. She is having lower pelvic cramping and she says she has been incontinent of urine. The patient did begin taking warfarin again secondary to pulmonary embolism in the past she takes this chronically. She otherwise denies any complaints or concerns. She denies any chest pain or shortness of breath, she denies any syncope or near syncope type symptoms. Associated symptoms: Reports abdominal pain; Deny headache(s), nausea or syncope Date of Last Menstrual Period: 07/10/19 Review of Systems Const: Denies: fever(s), chills, body aches, fatigue, malaise or diaphoresis Eyes: Denies: change in vision, blurry vision, blind spots or photophobia ENMT: Denies: throat pain, odynophagia, hoarseness, swelling of lips/tongue, ear or mastoid pain, ear discharge, change in hearing or nasal discharge Card: Denies: chest pain, palpitations, irregular heart rhythm, edema, lightheadedness, syncope, pre-syncope, dyspnea on exertion or orthopnea Resp: Denies: dyspnea, productive cough, non-productive cough, wheezing, hemoptysis or chest congestion GI: Reports: abdominal pain; Denies: nausea, vomiting, hematemesis, coffee ground emesis, heartburn, diarrhea, constipation, GI cramping, hematochezia or melena : Reports: urinary incontinence and vaginal bleeding; Denies: flank pain, urinary frequency, urinary urgency or hematuria Musc: Denies: neck pain, back pain, extremity pain, extremity swelling, joint pain, joint swelling, joint redness, joint warmth or joint stiffness Skin/Breast: Denies: rash, pruritus, erythema, skin tenderness or jaundice Neuro: Denies: headache(s), numbness in extremities, weakness in extremities, sensory changes, lack of coordination, difficulty walking, dizziness, vertigo, confusion or Slurred speech present Ander/Lymph: Denies: easy bruising, easy bleeding, petechiae, purpura or enlarged lymph nodes All/Imm: Denies: urticaria, throat swelling, tongue swelling, facial swelling or acute wheezing PFSH ED PFSH: Medical History Anticoagulated on warfarin On warfarin since her pulmonary embolism in 2012. This is managed by her primary care provider. Body mass index (BMI) 45.0-49.9, adult Not motivated to lose weight Chronic constipation Controlled with medications followed by her primary care provider COPD (chronic obstructive pulmonary disease) Diagnosed in 2013 and is controlled with medication Depression Diagnosed at the age of 23 and has been on medication since then. She follows up with Dr. Benitez a psychiatrist and as well as therapy in [place]. She currently denies suicidal/homicidal ideation. Essential (primary) hypertension Diagnosed in 2019 and she follows up with Dr. Anderson and cardiology. Gastro-esophageal reflux disease without esophagitis Controlled with medication. H/O deep venous thrombosis Reports having a DVT in 2019 and states her warfarin dose was increased after this. She follows up with Dr. Crespo Obstructive sleep apnea Bi-pap 03/24, she has sent machine back and declines treatment Personal history of pulmonary embolism (~2012) States that she had a PE in 2012 and has been on warfarin since then. She had evaluation performed by Dr. Crespo which was negative TIA (transient ischemic attack) Reports having had a TIA in 2019. Denies any neurological deficits. Followed by her primary care provider. Surgical History Status post conization of cervix Office LEEP procedure performed by Dr. Zelaya in 2005 for MARY-2 on Pap smear. 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 Status post knee surgery 2018-open knee surgery for torn ACL Status post left breast lumpectomy Patient reports having had 3 lumpectomies of her left breast in 1999, 2007 and 2009 for benign lesions. Family History Mother Hypertension Heart disease Grandmother Hypertension maternal and paternal Breast cancer maternal, diagnosed at age 43 Colon cancer maternal, diagnosed at age 63 Father Hypertension Grandfather Hypertension maternal and paternal Heart disease maternal Denies family history of Ovarian cancer Diabetes Uterine cancer Thyroid condition Stroke Social History Smoking and tobacco status: current every day smoker Second hand smoke exposure: Yes Alcohol intake: current Other details last substance use: last used 2013 per patient Lives independently: Yes Housing: House Marital status: Single Number of children: 0 service: No History of recent travel: No Additional social history: - Tobacco Use: Denies past or present use Drug Use: Medical marijuana use Alcohol Use: Denies Work/Study Status: Disabled due to mental health problems Female Reproductive History: Date of last menstrual period: 07/10/19 Physical Exam Const: COMMON NORMALS: no acute distress, patient oriented x3, no limitations, healthy appearing and well nourished GENERAL APPEARANCE: cooperative, well kempt and well developed HENMT: COMMON NORMALS: normocephalic, atraumatic, hearing grossly normal bilaterally, external ears normal, EAC's normal, Normal external nose present and moist oral mucous membranes HEAD & SCALP: normocephalic and atraumatic NOSE: Normal external nose present and Normal nares present EXTERNAL EAR: Yes external ears normal EXTERNAL AUDITORY CANAL: EAC's normal MOUTH: Normal oral and palatal mucosa present, lip normal and tongue normal Eye: COMMON NORMALS: Equal, round and reactive pupils present, EOMs intact bilaterally, conjunctivae normal and no scleral icterus GENERAL EYE: appearance normal, both eyes and all related structures ALIGNMENT: Yes alignment normal PERIORBITAL: periorbital findings normal EYELID: eyelids normal CONJUNCTIVA: Yes conjunctivae normal SCLERA: sclerae normal PUPIL: Yes Equal, round and reactive pupils present Neck/C-Spine: COMMON NORMALS: full ROM, no lymphadenopathy, supple, no meningeal signs and no JVD GENERAL: Yes normal visual inspection and Yes trachea midline Chest: COMMONS NORMALS: normal inspection of the chest and normal palpation of entire chest wall Resp: COMMON NORMALS: normal respiratory effort, No retractions, No use of accessory muscles and clear to auscultation bilaterally EFFORT & INSPECTION: Yes able to speak in complete sentences and Yes symmetric chest movement AUSCULTATION: clear to auscultation bilaterally, no crackles, no rales, no rhonchi and no wheezes Cardio: COMMON NORMALS: no JVD, regular rhythm, S1 normal heart sound present, S2 normal heart sound present, No gallops present (Cardio), No clicks present (Cardio), No murmurs present (Cardio) and No rub (Cardio) RATE: tachycardic RHYTHM: regular rhythm HEART SOUNDS: S1 normal heart sound present and S2 normal heart sound present GI: COMMON NORMALS: Soft to palpation and No hepatosplenomegaly present PALPATION: Yes Soft to palpation, No Tenderness to palpation present (GI), No Guarding due to palpation present (GI), No Rigid due to palpation, Yes No hepatosplenomegaly present, No Hernia present, No Palpable mass present and No Pulsatile mass present : COMMON NORMALS: Yes no CVA tenderness BLADDER/KIDNEY EXAM: Yes no CVA tenderness EXTERNAL FEMALE EXAM: No Hernia present SPECULUM EXAM - VAGINA: Yes other (Large amount of non-clotted blood in the cervix. With larger speculum with maximal penetration the cervix cannot be visualized. Bleeding did slow and seem to be coming from lower posterior areas in a very slow manner.) Back/Pelvis: COMMON NORMALS: no CVA tenderness, thoracic and lumbar spine normal to inspection, no thoracic nor lumbar tenderness and thoraco-lumbar ROM normal Extremity: COMMON NORMALS: normal to inspection, full ROM, capillary refill normal, no joint enlargement, no clubbing, cyanosis or edema and no calf tenderness Neuro: COMMON NORMALS: patient oriented x3, CN's II-XII intact bilaterally, moves all extremities, no focal motor deficits and no sensory deficits noted MENINGEAL SIGNS: Yes no meningeal signs SPEECH: speech normal Psych: COMMON NORMALS: mental status grossly normal, Normal thought process present, cooperative, normal affect, speech normal and activity/motor behavior normal APPEARANCE: Yes well kempt SPEECH: Yes normal speech THOUGHT PROCESS: Normal thought process present Skin: COMMON NORMALS: no rashes or lesions noted, turgor normal, no jaundice, no petechiae and no mottling GENERAL SKIN EXAM: no rashes or lesions noted and turgor normal Course Vital Signs: Vital signs: Vital Signs Temperature 97.8 F 11/16/19 04:22 Pulse Rate 114 H 11/16/19 04:22 Respiratory Rate 18 11/16/19 04:22 Blood Pressure 120/80 11/16/19 04:22 Pulse Oximetry 99 11/16/19 04:22 MDM - Female MDM Narrative: Medical decision making narrative: 0035 - The patient is now complaining of chest discomfort and shortness of breath. She is not therapeutic on her Coumadin so I am going to do a CTA to evaluate for pulmonary embolism. Her heart rate has improved but it is still tachycardic at this point. On pelvic exam I could not visualize the source of bleeding although it did not seem to be exceedingly heavy or brisk. I reviewed the case with Dr. Burrows who agrees to consult but would like the hospitalist to admit to evaluate for her chest discomfort but he will evaluate the patient for her vaginal bleeding. 0215 -Mrs. Estrada is a nice 44-year-old female who comes in complaining of vaginal bleeding. On pelvic exam I was unable to identify the cervix with our largest speculum because of the patient's body habitus. There is only mild bleeding that cleared but slowly returned but was not brisk and appeared more as a mild ooze. The patient's INR is subtherapeutic so I do not believe there is any anticoagulation contributing to this. The patient is not anemic. The patient while she was here began to complain of chest pain, shortness of breath and diaphoresis. I was concerned she may have had a return of her pulmonary emboli as she was not anticoagulated and she recently had a surgical procedure. CT scan does not show any evidence of pulmonary emboli in her lungs are normal. I had the diagnostic technician follow-through the abdomen and pelvis just to be certain there was not a intra-abdominal or retroperitoneal complication from the LEEP procedure although I think that would be very unlikely. Her CT scan abdomen pelvis is normal. She does have a UTI that is mild although there is some contamination but this was a cath specimen. Patient's lactate is slightly elevated and it is possible this could be sepsis. Because of the bleeding and the continued tachycardia I have presented the case to Dr. Burrows, he would like to consult but he does not want to admit. I presented the case to Dr. Mcgrath and he agrees to admit for treatment of possible sepsis. The patient's bleeding has not stopped but it is not heavy at all. We will continue to monitor her and Dr. Burrows can decide how he wants to proceed with this. Lab Data: Attestation: I reviewed the patient's lab results. Labs: Lab Results 11/15/19 11/15/19 11/15/19 Range/Units 22:27 22:27 22:27 WBC 5.7 (4.0-10.0) 10^3/ uL RBC 4.45 (4.1-5.3) 10^6/u L Hgb 12.7 (11.5-15.3) g/dL Hct 39.1 (37.0-47.0) % MCV 87.9 (81-99) fL MCH 28.5 (28.0-34.0) pg MCHC 32.5 (30.0-36.0) g/dL RDW 15.1 (12.1-15.1) % Plt Count 198 (130-400) 10^3/c mm MPV 10.5 H (7.4-10.4) fL Neut % (Auto) 64.4 % Lymph % (Auto) 26.6 % [place] % (Auto) 8.6 % Eos % (Auto) 0.0 % Baso % (Auto) 0.0 % Neut # (Auto) 3.7 (1.8-7.7) 10^3/u L Lymph # (Auto) 1.5 (0.8-4.8) 10^3/u L [place] # (Auto) 0.5 (0.2-0.9) 10^3/u L Eos # (Auto) 0.0 (0.0-0.8) 10^3/u L Baso # (Auto) 0.0 (0.0-0.1) 10^3/u L Nucleated RBC % (a uto) 0 % Nucleated RBCs # 0.0 /100WBC PT 12.50 (10.5-13.3) SECO NDS INR 0.91 (0.8-1.2) APTT 26.0 (23.9-36.7) SECO NDS Sodium 134 L (136-145) mmol/L Potassium 3.8 (3.5-5.1) mmol/L Chloride 98 (98-107) mmol/L Carbon Dioxide 24 (22-29) mmol/L Anion Gap 15.8 (5-19) BUN 7 (6-20) mg/dL Creatinine 1.1 H (0.5-0.9) mg/dL GFR Calculation 54.5 L (90-130) mL/min Glucose 239 H (65-115) mg/dL Calculated Osmolal ity 282 L (285-295) mOsm/k g Lactic Acid (0.5-2.2) mmol/L Calcium 9.7 (8.5-10.5) mg/dL Total Bilirubin 0.2 (0.15-1.2) mg/dL AST 19 (0-32) U/L ALT 26 (0-33) U/L Alkaline Phosphata se 104 (35-105) IU/L Troponin T Baselin e (0-10) ng/mL Troponin T 120 Min chrissy (0-10) ng/mL Delta Troponin T (0-10) ABS# Total Protein 6.9 (6.6-8.7) g/dL Albumin 3.8 (3.5-5.2) g/dL Globulin 3.1 (1.3-4.6) g/dL Urine Color (Yellow) Urine Appearance (CLEAR) Urine pH (5-7) Ur Specific Gravit y (1.005-1.030) Urine Protein (Negative) Urine Glucose (UA) (Normal) Urine Ketones (Negative) Urine Blood (Negative) Urine Nitrate (Negative) Urine Bilirubin (NEGATIVE) Urine Urobilinogen (Negative) mg/dL Ur Leukocyte Ana Paula ase (Negative) Urine RBC (0-2) /hpf Urine WBC (0-5) /hpf Ur Squamous Epith Cells (0-5) Urine Bacteria (NONE) Urine Mucus 11/15/19 11/15/19 11/16/19 Range/Units 22:27 23:06 00:21 WBC (4.0-10.0) 10^3/ uL RBC (4.1-5.3) 10^6/u L Hgb (11.5-15.3) g/dL Hct (37.0-47.0) % MCV (81-99) fL MCH (28.0-34.0) pg MCHC (30.0-36.0) g/dL RDW (12.1-15.1) % Plt Count (130-400) 10^3/c mm MPV (7.4-10.4) fL Neut % (Auto) % Lymph % (Auto) % [place] % (Auto) % Eos % (Auto) % Baso % (Auto) % Neut # (Auto) (1.8-7.7) 10^3/u L Lymph # (Auto) (0.8-4.8) 10^3/u L [place] # (Auto) (0.2-0.9) 10^3/u L Eos # (Auto) (0.0-0.8) 10^3/u L Baso # (Auto) (0.0-0.1) 10^3/u L Nucleated RBC % (a uto) % Nucleated RBCs # /100WBC PT (10.5-13.3) SECO NDS INR (0.8-1.2) APTT (23.9-36.7) SECO NDS Sodium (136-145) mmol/L Potassium (3.5-5.1) mmol/L Chloride (98-107) mmol/L Carbon Dioxide (22-29) mmol/L Anion Gap (5-19) BUN (6-20) mg/dL Creatinine (0.5-0.9) mg/dL GFR Calculation (90-130) mL/min Glucose (65-115) mg/dL Calculated Osmolal ity (285-295) mOsm/k g Lactic Acid (0.5-2.2) mmol/L Calcium (8.5-10.5) mg/dL Total Bilirubin (0.15-1.2) mg/dL AST (0-32) U/L ALT (0-33) U/L Alkaline Phosphata se (35-105) IU/L Troponin T Baselin e 8 (0-10) ng/mL Troponin T 120 Min chrissy 7.45 (0-10) ng/mL Delta Troponin T -0.55 L (0-10) ABS# Total Protein (6.6-8.7) g/dL Albumin (3.5-5.2) g/dL Globulin (1.3-4.6) g/dL Urine Color Yellow (Yellow) Urine Appearance Sl hazy (CLEAR) Urine pH 5 (5-7) Ur Specific Gravit y 1.025 (1.005-1.030) Urine Protein Neg (Negative) Urine Glucose (UA) 4+ H (Normal) Urine Ketones 1+ H (Negative) Urine Blood 2+ H (Negative) Urine Nitrate Positive H (Negative) Urine Bilirubin Neg (NEGATIVE) Urine Urobilinogen Norm (Negative) mg/dL Ur Leukocyte Ana Paula ase Negative (Negative) Urine RBC 0-4 H (0-2) /hpf Urine WBC 25-40 H (0-5) /hpf Ur Squamous Epith Cells 5-10 H (0-5) Urine Bacteria 2+ H (NONE) Urine Mucus 1+ 05/30/20 Range/Units 01:38 WBC (4.0-10.0) 10^3/ uL RBC (4.1-5.3) 10^6/u L Hgb (11.5-15.3) g/dL Hct (37.0-47.0) % MCV (81-99) fL MCH (28.0-34.0) pg MCHC (30.0-36.0) g/dL RDW (12.1-15.1) % Plt Count (130-400) 10^3/c mm MPV (7.4-10.4) fL Neut % (Auto) % Lymph % (Auto) % [place] % (Auto) % Eos % (Auto) % Baso % (Auto) % Neut # (Auto) (1.8-7.7) 10^3/u L Lymph # (Auto) (0.8-4.8) 10^3/u L [place] # (Auto) (0.2-0.9) 10^3/u L Eos # (Auto) (0.0-0.8) 10^3/u L Baso # (Auto) (0.0-0.1) 10^3/u L Nucleated RBC % (a uto) % Nucleated RBCs # /100WBC PT (10.5-13.3) SECO NDS INR (0.8-1.2) APTT (23.9-36.7) SECO NDS Sodium (136-145) mmol/L Potassium (3.5-5.1) mmol/L Chloride (98-107) mmol/L Carbon Dioxide (22-29) mmol/L Anion Gap (5-19) BUN (6-20) mg/dL Creatinine (0.5-0.9) mg/dL GFR Calculation (90-130) mL/min Glucose (65-115) mg/dL Calculated Osmolal ity (285-295) mOsm/k g Lactic Acid 2.7 H (0.5-2.2) mmol/L Calcium (8.5-10.5) mg/dL Total Bilirubin (0.15-1.2) mg/dL AST (0-32) U/L ALT (0-33) U/L Alkaline Phosphata se (35-105) IU/L Troponin T Baselin e (0-10) ng/mL Troponin T 120 Min chrissy (0-10) ng/mL Delta Troponin T (0-10) ABS# Total Protein (6.6-8.7) g/dL Albumin (3.5-5.2) g/dL Globulin (1.3-4.6) g/dL Urine Color (Yellow) Urine Appearance (CLEAR) Urine pH (5-7) Ur Specific Gravit y (1.005-1.030) Urine Protein (Negative) Urine Glucose (UA) (Normal) Urine Ketones (Negative) Urine Blood (Negative) Urine Nitrate (Negative) Urine Bilirubin (NEGATIVE) Urine Urobilinogen (Negative) mg/dL Ur Leukocyte Ana Paula ase (Negative) Urine RBC (0-2) /hpf Urine WBC (0-5) /hpf Ur Squamous Epith Cells (0-5) Urine Bacteria (NONE) Urine Mucus EKG Data: EKG 1: Attestation: I personally reviewed and interpreted this EKG as follows: EKG Data: 11/16/19 EKG interpretation time: 00:06 Interpretation: Sinus tachycardia at 119 beats a minute, no acute ST-T wave changes. Discharge Plan Discharge Patient Disposition: Placed in Observation Admit Provider: Daja Mcgrath Clinical Impression: Vaginal bleeding UTI (urinary tract infection) Qualifiers: Urinary tract infection type: site unspecified Hematuria presence: with hematuria Qualified Code(s): N39.0 - Urinary tract infection, site not specified Sepsis Qualifiers: Sepsis type: sepsis due to unspecified organism Sepsis acute organ dysfunction status: unspecified Qualified Code(s): A41.9 - Sepsis, unspecified organism Condition: Stable Referrals: Christa Chew APN [Primary Care Provider] - Discharge Date/Time: 11/16/19 04:18 Coding Level of Care Code ED Curtain Feller Blindstitch for g Fwd Exam Comprehensive
[2019-11-15 22:42] LABS: Hematocrit 39.1 % (37.0-47.0); Hemoglobin 12.7 g/dL (11.5-15.3); Lymphocytes # 1.5 10^3/uL (0.8-4.8); Lymphocytes % 26.6 %; Mean Corpuscular HGB Conc 32.5 g/dL (30.0-36.0); Mean Corpuscular Hemoglobin 28.5 pg (28.0-34.0); Mean Corpuscular Volume 87.9 fL (81-99); Mean Platelet Volume 10.5 fL (7.4-10.4); Monocytes # 0.5 10^3/uL (0.2-0.9); Monocytes % 8.6 %; Neutrophils # 3.7 10^3/uL (1.8-7.7); Neutrophils % 64.4 %; Nucleated Red Blood Cells % 0 %; Platelet Count 198 10^3/cmm (130-400); Red Blood Count 4.45 10^6/uL (4.1-5.3); Red Cell Distribution Width 15.1 % (12.1-15.1); White Blood Count 5.7 10^3/uL (4.0-10.0)
[2019-11-15] MEDS: sodium chloride 0.9% 1,000 ML 999 ML IV (22:53)
[2019-11-15] MEDS: ondansetron 2 mg/ML SDV 2 mL 4 MG IVP (22:53)
[2019-11-15 22:54] VITALS: RESP 18
[2019-11-15] MEDS: HYDROmorphone 1 mg/mL INJ 1 mL 0.5 MG IVP ×2 (22:54→23:44)
[2019-11-15 22:59] LABS: INR 0.91 (0.8-1.2)
[2019-11-15 23:04] LABS: Alanine Aminotransferase 26 U/L (0-33); Albumin Level 3.8 g/dL (3.5-5.2); Alkaline Phosphatase 104 IU/L (35-105); Anion Gap 15.8 (5-19); Aspartate Amino Transferase 19 U/L (0-32); Blood Urea Nitrogen 7 mg/dL (6-20); Calcium 9.7 mg/dL (8.5-10.5); Carbon Dioxide 24 mmol/L (22-29); Chloride 98 mmol/L (98-107); Globulin 3.1 g/dL (1.3-4.6); Glomerular Filtration Rate 54.5 mL/min (90-130); Glucose 239 mg/dL (65-115); Osmolality Calculated 282 mOsm/kg (285-295); Potassium 3.8 mmol/L (3.5-5.1); Sodium 134 mmol/L (136-145); Total Bilirubin 0.2 mg/dL (0.15-1.2); Total Protein 6.9 g/dL (6.6-8.7)
[2019-11-15 23:26] LABS: Bilirubin Urine Neg (NEGATIVE); Blood Urine 2+ (Negative); Glucose Urine UA 4+ (Normal); Ketones Urine 1+ (Negative); Nitrate Urine Positive (Negative); Protein Urine Neg (Negative); Specific Gravity, Urine 1.025 (1.005-1.030); Urine Appearance SL Hazy (CLEAR); Urine Color Yellow (Yellow); Urobilinogen Urine Norm (Negative); pH Urine 5 (5-7)
[2019-11-15 23:27] LABS: Leukocyte Esterase Urine Negative (Negative)
[2019-11-15 23:29] LABS: Bacteria Urine 2+; Mucus Urine 1+; RBC Urine 0-4 /hpf (0-2); WBC Urine 25-40 /hpf (0-5)
[2019-11-15 23:30] LABS: Add Urine Culture? Yes
[2019-11-15] MEDS: sodium chloride 0.9% 1,000 ML 100 ML IV (23:35)
[2019-11-15 23:44] VITALS: RESP 18; O2SAT 98
--- NOTE | 2019-11-15 23:49 | ECG_ITS ---
Measurements Intervals [place] Rate: 119 P: 49 NC: 165 QRS: 36 QRSD: 97 T: 48 QT: 408 QTc: 575 SINUS TACHYCARDIA NONSPECIFIC T-WAVE ABNORMALITY ABNORMAL RHYTHM ECG Compared to ECG 04/23/2019 14:00:51 T-wave abnormality now present Electronically Signed On 11-16-2019 8:15:39 CDT by Walter Mcmillan M.D. [id number]
[2019-11-16] VITALS (7 sets, daily range): BP systolic 104–156; BP diastolic 67–97; PULSE 81–126; RESP 18–22; TEMP 36.4–36.6; O2SAT 96–99
[2019-11-16 00:17] LABS: Troponin(5th) Baseline 8 ng/mL (0-10)
--- NOTE | 2019-11-16 00:22 | CTR_ITS ---
PROCEDURE INFORMATION: Exam: CT Angiography Chest With Contrast Exam date and time: 11/16/2019 12:59 AM Age: 44 years old Clinical indication: Abdominal pain; Generalized; Chest pain; Type not specified TECHNIQUE: Imaging protocol: Computed tomographic angiography of the chest with intravenous contrast. 3D rendering: MIP and/or 3D reconstructed images were created by the technologist. Radiation optimization: All CT scans at this facility use at least one of these dose optimization techniques: automated exposure control; mA and/or kV adjustment per patient size (includes targeted exams where dose is matched to clinical indication); or iterative reconstruction. Contrast material: VISI; Contrast volume: 95 ml; Contrast route: 20G; COMPARISON: CTA Chest w Abd/Pel w* 05/14/2018 11:26 AM RADIATION DOSE METRICS: Total DLP: 2596.45 mGy-cm FINDINGS: Pulmonary arteries: Normal. No pulmonary emboli. Aorta: Unremarkable. No aortic aneurysm. No aortic dissection. Lungs: Unremarkable. No consolidation. No masses. Pleural space: There is a stable peripheral pleural based nodularity seen in the right posterolateral costophrenic recess measuring 7.3 mm. Heart: Unremarkable. No cardiomegaly. No pericardial effusion. Lymph nodes: Unremarkable. No enlarged lymph nodes. Bones/joints: Unremarkable. No acute fracture. Soft tissues: Unremarkable. IMPRESSION: There are no acute chest findings. There is no evidence for pulmonary emboli. PROCEDURE INFORMATION: Exam: CT Abdomen And Pelvis With Contrast Exam date and time: 11/16/2019 12:59 AM Age: 44 years old Clinical indication: Abdominal pain; Generalized; Chest pain; Type not specified TECHNIQUE: Imaging protocol: Computed tomography of the abdomen and pelvis with intravenous contrast. Radiation optimization: All CT scans at this facility use at least one of these dose optimization techniques: automated exposure control; mA and/or kV adjustment per patient size (includes targeted exams where dose is matched to clinical indication); or iterative reconstruction. Contrast material: VISI; Contrast volume: 95 ml; Contrast route: 20G; COMPARISON: CTA Chest w Abd/Pel w* 05/14/2018 11:26 AM RADIATION DOSE METRICS: Total DLP: 2596.45 mGy-cm FINDINGS: Liver: Normal. No mass. Gallbladder and bile ducts: The gallbladder appears contracted. Pancreas: Normal. No ductal dilation. Spleen: Normal. No splenomegaly. Adrenals: Normal. No mass. Kidneys and ureters: Normal. No hydronephrosis. Stomach and bowel: Unremarkable. No obstruction. No mucosal thickening. Appendix: No evidence of appendicitis. Intraperitoneal space: Unremarkable. No free air. No significant fluid collection. Vasculature: Unremarkable. No abdominal aortic aneurysm. Lymph nodes: Unremarkable. No enlarged lymph nodes. Bladder: A [place] catheter is present. A small amount of air is introduced into the bladder lumen. The bladder is contracted. Reproductive: There are multiple follicles seen within both ovaries. Bones/joints: Unremarkable. No acute fracture. Soft tissues: Unremarkable. CT/CT angio chest w abd pel w con IMPRESSION: There are no acute abdominal findings. Radiation Dose CTDIVOL = (mGy): DLP = 2596.45~2596.45 (mGy-cm)
[2019-11-16 00:53] LABS: Troponin 5 2HR 7.45 ng/mL (0-10)
[2019-11-16 00:59] LABS: Troponin 5 2HR Delta -0.55 ABS# (0-10)
[2019-11-16] MEDS: iodixanol 320 mg/mL 100mL Btl IV (01:39)
[2019-11-16 01:55] LABS: Lactic Sepsis W/Reflex 2.7 mmol/L (0.5-2.2)
--- NOTE | 2019-11-16 02:15 | P.HP_ITS ---
Providers/Chief Complaint Primary Care Provider: Christa Chew APN Chief Complaint: VAGINAL BLEEDING POST PROCEDURE History of Present Illness Heladio Branch is a 44 year old female who carries diagnosis of unprovoked DVT, PE on Coumadin, status post LEEP procedure coming in for vaginal bleeding. Her LEEP procedure was done on Monday, Coumadin was held for 3 days before the procedure, she started Coumadin on , on Monday she started bleeding vaginally, she was changing her pads every 90 minutes which were soaked with fresh red blood with minimal clots. She is endorsing subjective fevers and anxiety, she uses medical marijuana at night, does not use CPAP. She is endorsing dysuria, urinary frequency. She was given Bactrim course at the start of this month for dysuria. Patient is stating that her symptoms never resolved. She lives alone, uses medical marijuana pen, has seen Dr. 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 Diagnostics in the ER revealed tachycardia, normal blood pressure, normal hemoglobin, vaginal bleeding, genital exam was done by the ER physician, it was a limited exam because of active bleeding, HYDROGRAPHICAL TECHNICAL OFFICER service notified She will be given Zosyn and septic bolus for UTI, she has no leukocytosis but her lactic acid is 2.7 After getting contrast during her CT scan she started experiencing facial flu shing and chest discomfort CT scan is not showing PE INR 0.9 Review of Systems Const: Reports: fever(s), chills, body aches and fatigue; Denies: change in appetite Eyes: Denies: change in vision ENMT: Denies: throat pain Card: Denies: chest pain Resp: Denies: dyspnea GI: Reports: abdominal pain, heartburn and diarrhea; Denies: nausea, vomiting or constipation : Reports: difficulty voiding, dysuria and urinary frequency; Denies: flank pain or urinary urgency Musc: Denies: neck pain Skin/Breast: Denies: rash Neuro: Denies: headache(s) Psych: Reports: anxiety Endo: Denies: polyuria Ander/Lymph: Denies: easy bruising All/Imm: Denies: urticaria Medications/Allergies Home Medications Medication Instructions Recorded Confirmed Last Taken Type acetaminophen 650 mg 650 mg PO Q8H PRN 06/20/19 11/13/19 Unknown History tablet,extended release albuterol sulfate 90 mcg/actuation 2 puff INHALATION QID 06/20/19 11/13/19 Unknown History aerosol inhaler aripiprazole 2 mg tablet 2 mg PO ONCE 06/20/19 11/13/19 Unknown History ferrous sulfate 325 mg (65 mg 325 mg PO BID 06/20/19 11/13/19 Unknown History iron) tablet pnwhmuhoowfq-Ei-yzmk-minerals 18 1 tab PO DAILY tab 06/20/19 11/13/19 Unknown History mg-0.4 mg tablet peg 3350-sod chlor-potass cit 17 gm PO DAILY each 06/20/19 11/13/19 Unknown History omeprazole 20 mg capsule,delayed 20 mg PO DAILY 30 Days #30 cap 07/17/19 11/13/19 Unknown Rx release warfarin 2 mg tablet 2 mg PO ONCE #65 tab 07/17/19 11/13/19 Unknown Rx tizanidine 4 mg tablet 4 mg PO TID PRN #90 tab 07/18/19 11/13/19 Unknown Rx isosorbide mononitrate 20 mg tablet 20 mg PO BID #120 tab 08/05/19 11/13/19 Unknown Rx amlodipine 5 mg tablet 5 mg PO DAILY 30 Days #30 tab 09/17/19 11/13/19 Unknown Rx chlorthalidone 25 mg tablet 25 mg PO DAILY 30 Days #30 tab 09/17/19 11/13/19 Unknown Rx desvenlafaxine succinate 100 mg 100 mg PO DAILY 09/17/19 11/13/19 Unknown H istory tablet,extended release 24 hr potassium chloride 10 mEq 10 meq PO DAILY 30 Days #30 cap 09/17/19 11/13/19 Unknown Rx capsule,extended release quetiapine 300 mg tablet 300 mg PO DAILY 09/17/19 11/13/19 Unknown History nystatin 100,000 unit/gram topical 1 applic TOPICAL DAILY #15 gm 10/11/19 11/13/19 Unknown Rx cream ibuprofen 200 mg capsule 400 mg PO Q6H PRN cap 10/30/19 11/13/19 Unknown History marijauna PO DAILY 10/30/19 11/13/19 Unknown History metoprolol tartrate 50 mg tablet 100 mg PO BID tab 10/30/19 11/13/19 Unknown History nitrofurantoin 100 mg PO BID 10/30/19 11/13/19 Unknown History monohydrate/macrocrystals 100 mg capsule cholecalciferol (vitamin D3) 1,250 1,250 mcg PO .weekly 30 Days #4 cap 11/01/19 11/13/19 Unknown Rx mcg (50,000 unit) capsule Allergies Allergy/AdvReac Type Severity Reaction Status Date / Time venlafaxine [From Effexor] Allergy Intermediate hives Verified 11/13/19 13:52 Fish Containing Products Allergy anaphylaxis Verified 11/13/19 13:52 bupropion [From Wellbutrin] AdvReac Severe sucidal Verified 11/13/19 13:52 fluoxetine [From Prozac] AdvReac Severe sucidal Verified 11/13/19 13:52 topiramate [From Topamax] AdvReac Severe passing out Verified 11/13/19 13:52 lamotrigine [From Lamictal] AdvReac Mild weight gain Verified 11/13/19 13:52 duloxetine [From Cymbalta] AdvReac Unknown Bumps Verified 11/13/19 13:52 inside mouth escitalopram [From Lexapro] AdvReac Unknown Made me Verified 11/13/19 13:52 psychotic PFSH Acute PFSH: Medical History Anticoagulated on warfarin On warfarin since her pulmonary embolism in 2012. This is managed by her primary care provider. Body mass index (BMI) 45.0-49.9, adult Not motivated to lose weight Chronic constipation Controlled with medications followed by her primary care provider COPD (chronic obstructive pulmonary disease) Diagnosed in 2013 and is controlled with medication Depression Diagnosed at the age of 23 and has been on medication since then. She follows up with Dr. Benitez a psychiatrist and as well as therapy in [place]. She currently denies suicidal/homicidal ideation. Essential (primary) hypertension Diagnosed in 2019 and she follows up with Dr. Anderson and cardiology. Gastro-esophageal reflux disease without esophagitis Controlled with medication. H/O deep venous thrombosis Reports having a DVT in 2019 and states her warfarin dose was increased after this. She follows up with Dr. Crespo Obstructive sleep apnea Bi-pap 03/24, she has sent machine back and declines treatment Personal history of pulmonary embolism (~2012) States that she had a PE in 2012 and has been on warfarin since then. She had evaluation performed by Dr. Crespo which was negative TIA (transient ischemic attack) Reports having had a TIA in 2019. Denies any neurological deficits. Followed by her primary care provider. Surgical History Status post conization of cervix Office LEEP procedure performed by Dr. Zelaya in 2005 for MARY-2 on Pap smear. 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 Status post knee surgery 2018-open knee surgery for torn ACL Status post left breast lumpectomy Patient reports having had 3 lumpectomies of her left breast in 1999, 2007 and 2009 for benign lesions. Family History Mother Hypertension Heart disease Grandmother Hypertension maternal and paternal Breast cancer maternal, diagnosed at age 43 Colon cancer maternal, diagnosed at age 63 Father Hypertension Grandfather Hypertension maternal and paternal Heart disease maternal Denies family history of Ovarian cancer Diabetes Uterine cancer Thyroid condition Stroke Social History Smoking and tobacco status: current every day smoker Second hand smoke exposure: Yes Alcohol intake: current Other details last substance use: last used 2013 per patient Lives independently: Yes Housing: House Marital status: Single Number of children: 0 service: No History of recent travel: No Additional social history: - Tobacco Use: Denies past or present use Drug Use: Medical marijuana use Alcohol Use: Denies Work/Study Status: Disabled due to mental health problems Female Reproductive History: Date of last menstrual period: 07/10/19 Vitals/I&O/Wt Last Vital Signs Temp 97.7 F 11/15/19 22:12 Pulse 122 H 11/15/19 22:12 Resp 18 11/15/19 23:44 BP 164/112 11/15/19 22:12 Pulse Ox 98 11/15/19 23:44 Weight last 48 hrs Weight 153.314 kg Physical Exam Narrative: EXAM NARRATIVE: Head to toe examination Morbidly obese female laying comfortably in her bed Tachycardic heart rate 117 Normal blood pressure S1, S2 no active heart failure Nonpitting edema bilateral lower extremity Abdomen soft nontender nondistended Neurological nonfocal exam EOMI, PERRLA Skin does not show any sign of skin gangrene or ulcer Appropriate mood and affect No signs of septic shock No CVA tenderness No active respiratory distress or chest pain Urinary Catheter Management^: [place]: Cath Placed During This Visit: no Data : 11/15/19 22:27 11/15/19 22:27 Micro: Microbiology 11/16/19 01:48 Blood Culture - Preliminary Blood SPECIMEN COLLECTED 11/15/19 22:27 Blood Culture - Preliminary Blood SPECIMEN COLLECTED A&P Assessment and plan (1) Vaginal bleeding: Status: Acute (2) UTI (urinary tract infection): Status: Acute Qualifiers: Hematuria presence: with hematuria Urinary tract infection type: site unspecified Qualified Code(s): N39.0 - Urinary tract infection, site not specified; R31.9 - Hematuria, unspecified (3) Sepsis: Status: Acute Qualifiers: Sepsis acute organ dysfunction status: unspecified Sepsis type: sepsis due to unspecified organism Qualified Code(s): A41.9 - Sepsis, unspecified organism (4) Anticoagulated on warfarin: Status: Acute (5) Obstructive sleep apnea: Status: Acute Additional A&P Information Vaginal bleeding after LEEP procedure Hemoglobin stable, tachycardic, no signs of hemorrhagic shock, Responsive to fluid, Hold Coumadin, INR 0.9, no need of Coumadin reversal Monitor her H&H and will follow up with HYDROGRAPHICAL TECHNICAL OFFICER recommendations if she would benefit from transnemic acid for mucosal bleeding CT abdomen pelvis did not show acute pathology Sepsis due to UTI Failed outpatient Macrobid therapy Symptomatic with dysuria High lactic acid 2.7 with tachycardia Would use Zosyn to cover gram-negative and anaerobic microorganisms because of recent procedure DVT/PE: Unprovoked, She has been using Coumadin because of her BMI Her Coumadin has been managed by PCP Currently on hold, Dr. Crespo has ruled out hypercoagulable state Sleep apnea Patient refused use of BiPAP which was recommended Anxiety/depression: She uses medical marijuana Full code DVT prophylaxis: SCDs Regular diet Attestations Medical Necessity Statement*: Anticipating her stay in the hospital cross more than 2 midnights currently need IV antibiotics for sepsis, needs HYDROGRAPHICAL TECHNICAL OFFICER consult in the morning for vaginal bleeding Time Spent in Patient Care: 50 Coding Level of Care Code Acute Chief Service Observer for Chg Fwd Diagnoses Vaginal bleeding N93.9 UTI (urinary tract infection) N39.0; R31.9 Hematuria presence: with hematuria Urinary tract infection type: site unspecified Sepsis A41.9 Sepsis acute organ dysfunction status: unspecified Sepsis type: sepsis due to unspecified organism Anticoagulated on warfarin Z79.01 Obstructive sleep apnea G47.33
[2019-11-16] MEDS: piperacillin-tazobactam 3.375 GM in sodium chloride 0.9% (plus) 50 ML IV ×2 (02:32→09:50)
[2019-11-16 03:27] LABS: Reflex Lactate Order REFLEX LACTIC ORDERD
[2019-11-16 04:16] LABS: Basophils % 0.2 %; Eosinophils % 0.2 %; Hematocrit 38.6 % (37.0-47.0); Hemoglobin 12.3 g/dL (11.5-15.3); Lymphocytes # 1.8 10^3/uL (0.8-4.8); Lymphocytes % 30.2 %; Mean Corpuscular HGB Conc 31.9 g/dL (30.0-36.0); Mean Corpuscular Hemoglobin 28.2 pg (28.0-34.0); Mean Corpuscular Volume 88.5 fL (81-99); Mean Platelet Volume 10.6 fL (7.4-10.4); Monocytes # 0.5 10^3/uL (0.2-0.9); Monocytes % 8.8 %; Neutrophils # 3.5 10^3/uL (1.8-7.7); Neutrophils % 59.9 %; Nucleated Red Blood Cells % 0 %; Platelet Count 203 10^3/cmm (130-400); Red Blood Count 4.36 10^6/uL (4.1-5.3); Red Cell Distribution Width 15.3 % (12.1-15.1); White Blood Count 5.8 10^3/uL (4.0-10.0)
[2019-11-16 04:30] LABS: Lactic Acid level (Lactate) 2.2 mmol/L (0.5-2.2)
[2019-11-16 04:31] LABS: Anion Gap 15.6 (5-19); Blood Urea Nitrogen 6 mg/dL (6-20); Carbon Dioxide 25 mmol/L (22-29); Chloride 98 mmol/L (98-107); Glomerular Filtration Rate 60.8 mL/min (90-130); Glucose 202 mg/dL (65-115); Osmolality Calculated 282 mOsm/kg (285-295); Potassium 3.6 mmol/L (3.5-5.1); Sodium 135 mmol/L (136-145)
[2019-11-16 04:46] LABS: INR 0.93 (0.8-1.2)
[2019-11-16] MEDS: ondansetron 2 mg/ML SDV 2 mL 4 MG IVP ×2 (05:20→20:51)
--- NOTE | 2019-11-16 05:27 | PC.ADMIT ---
NO [id number] Admission Note: The patient,Heladio Branch,44 y/o, was given written information regarding hospital policies, unit procedures and contact persons. Patient's smoking status: current every day smoker. Vital Signs - 8 hr 11/15/19 22:12 11/15/19 22:54 11/15/19 23:44 Temperature 97.7 F Pulse Rate Pulse Rate [Monitor] 122 H Respiratory Rate 20 H 18 18 Blood Pressure Blood Pressure [Right Arm] 164/112 Pulse Oximetry 98 98 11/16/19 03:34 11/16/19 04:22 Temperature 97.8 F Pulse Rate 126 H 114 H Pulse Rate [Monitor] Respiratory Rate 22 H 18 Blood Pressure 156/97 120/80 Blood Pressure [Right Arm] Pulse Oximetry 97 99
--- NOTE | 2019-11-16 05:27 | PC.NURSE ---
Admission Note Pt admitted with vaginal bleeding, UTI, HTN, and NV. Pt is A&Ox4, able to move all extremities without complication. Pt has an indwelling kamara, has drained 200ml since coming to the floor. Denies pain 0/10, vomited 1 time, administered 4mg of zofran, 3rd bolus. No other needs voiced at this time. Will continue to monitor.
--- NOTE | 2019-11-16 05:49 | ECG_ITS ---
Measurements Intervals [place] Rate: 111 P: 46 CT: 177 QRS: 35 QRSD: 82 T: 61 QT: 334 QTc: [address] DEPRESSION [0.025+ mV ST DEPRESSION] ABNORMAL RHYTHM ECG INTERPRETATION BASED ON A DEFAULT AGE OF 40 YEARS Compared to ECG 04/23/2019 14:00:51 ST (T wave) deviation now present Electronically Signed On 11-16-2019 8:17:46 CDT by Walter Mcmillan M.D. [email or web address]
[2019-11-16] MEDS: acetaminophen 325 mg Tablet 650 MG PO (06:30)
[2019-11-16] MEDS: metoprolol tartrate 50 mg Tablet 100 MG PO ×2 (08:18→17:45)
[2019-11-16] MEDS: quetiapine 300 mg Tablet PO ×2 (08:18→21:01)
--- NOTE | 2019-11-16 10:46 | PC.CHAP ---
Pastoral Care Encounter/Spiritual Assessment Type of Contact [] Declined braid folder visit [] Patient/Family/Request visit [] Outpatient visit [] Follow-up visit [] Physician referral [] Code/Alert [X] Routine visit [] Staff referral [] Actively dying [] Patient sleeping [] Family support [] [] Out of room [] Palliative care [] [] Receiving care in room [] Pre-surgical visit [] Trauma [] Long length of stay [] ICU visit [] Other: Relational/Emotional Strength [] Patient feels connected with others/family/visitors/staff [] Distress [] Loneliness/isolation [] Abandonment Spirituality of Patient [X] Person of Caridad [] Attends Christian of their [place] [] Believes in Prayer [] Reads Bible or Sikhism materials [] There are Spiritual issues to be addressed Telephone Station Installer Interventions [] Prayer [] Active listening [] Non-anxious presence [] Spiritual/emotional support [] Crisis/trauma care [] Spiritual counseling [] Bereavement support [] Provided bereavement packet [] Provided Bible/devotional materials [] Provided toy/stuffed animal, coloring book to patient or family member [] Provided Communion [] Anointing/[place] [] Salvation [] Completed spiritual assessment [] Other: Impact on Illness or Injury [] Angry [X] Fearful [X] Anxious [] Often cries [] Exhaustion [X] Unable to work [] Unable to attend anglican [] Unable to walk/stand [] Unable to read [] Unable to drive [] Unable to eat/drink [] Unable to sleep [X] Unable to be with family [] Patient intubated [] Other: Summary PT seems to be depressed and actually spoke of suicide. She states that she has no family (all ). Time spent with patient
--- NOTE | 2019-11-16 12:32 | PM.OBGYCN ---
Providers/Reason for Consult Consulting Physican/Specialty*: [facility] C[facility] Reason for Consult*: my professional opinion for admitting diagnosis. Attending Physician: Julianne Felder MD Primary Care Provider: Christa Chew APN DIRECT[facility] Consult HPI History of Present Illness Heladio Branch is a 44 year old female 0 with an LMP of 10/22/2019 who presents for further evaluation of abnormal uterine bleeding at our clinic. She had an endometrial biopsy 3 days ago. She has been on warfarin since 2012. But it was discontinue prior to the endometrial biopsy, and restarted the warfarin the following day. Procedure was complicated by marginal bleeding treated with silver nitrate that had been applied. Prior to this she denied intermenstrual bleeding, postcoital bleeding, dyspareunia, vaginal/vulvar pruritus discharge or growths. She has not had a Pap smear in at least 10 years and does report a history of abnormal Pap smears. She denies any breast or nipple problems, urinary or bowel problems. she refers she started with bleeding yesterday and came to the emergency room. Present Details Date of Last Menstrual Period: 10/21/19 Review of Systems Const: Reports: fever(s), chills, body aches and fatigue; Denies: change in appetite Eyes: Denies: change in vision ENMT: Denies: throat pain Card: Denies: chest pain Resp: Denies: dyspnea GI: Reports: abdominal pain, heartburn and diarrhea; Denies: nausea, vomiting or constipation : Reports: difficulty voiding, dysuria and urinary frequency; Denies: flank pain or urinary urgency Musc: Denies: neck pain Skin/Breast: Denies: rash Neuro: Denies: headache(s) Psych: Reports: anxiety Endo: Denies: polyuria Ander/Lymph: Denies: easy bruising All/Imm: Denies: urticaria Meds/Allergies Home Medications and Allergies Home Medications Medication Instructions Recorded Confirmed Last Taken Type acetaminophen 650 mg 650 mg PO Q8H PRN 06/20/19 11/16/19 Unknown History tablet,extended release albuterol sulfate 90 mcg/actuation 2 puff INHALATION QID 06/20/19 11/16/19 Unknown History aerosol inhaler aripiprazole 2 mg tablet 2 mg PO ONCE 06/20/19 11/16/19 Unknown History ferrous sulfate 325 mg (65 mg 325 mg PO BID 06/20/19 11/16/19 Unknown History iron) tablet oxbogxvwztpt-Mj-ajhx-minerals 18 1 tab PO DAILY tab 06/20/19 11/16/19 Unknown History mg-0.4 mg tablet peg 3350-sod chlor-potass cit 17 gm PO DAILY each 06/20/19 11/16/19 Unknown History omeprazole 20 mg capsule,delayed 20 mg PO DAILY 30 Days #30 cap 07/17/19 11/16/19 Unknown Rx release warfarin 2 mg tablet 2 mg PO ONCE #65 tab 07/17/19 11/16/19 Unknown Rx tizanidine 4 mg tablet 4 mg PO TID PRN #90 tab 07/18/19 11/16/19 Unknown Rx isosorbide mononitrate 20 mg tablet 20 mg PO BID #120 tab 08/05/19 11/16/19 Unknown Rx amlodipine 5 mg tablet 5 mg PO DAILY 30 Days #30 tab 09/17/19 11/16/19 Unknown Rx chlorthalidone 25 mg tablet 25 mg PO DAILY 30 Days #30 tab 09/17/19 11/16/19 Unknown Rx desvenlafaxine succinate 100 mg 100 mg PO DAILY 09/17/19 11/16/19 Unknown History tablet,extended release 24 hr potassium chloride 10 mEq 10 meq PO DAILY 30 Days #30 cap 09/17/19 11/16/19 Unknown Rx capsule,extended release quetiapine 300 mg tablet 300 mg PO DAILY 09/17/19 11/16/19 Unknown History nystatin 100,000 unit/gram topical 1 applic TOPICAL DAILY #15 gm 10/11/19 11/16/19 Unknown Rx cream ibuprofen 200 mg capsule 400 mg PO Q6H PRN cap 10/30/19 11/16/19 Unknown History marijauna PO DAILY 10/30/19 11/13/19 Unknown History metoprolol tartrate 50 mg tablet 100 mg PO BID tab 10/30/19 11/16/19 Unknown History nitrofurantoin 100 mg PO BID 10/30/19 11/16/19 Unknown History monohydrate/macrocrystals 100 mg capsule cholecalciferol (vitamin D3) 1,250 1,250 mcg PO .weekly 30 Days #4 cap 11/01/19 11/16/19 Unknown Rx mcg (50,000 unit) capsule Allergies Allergy/AdvReac Type Severity Reaction Status Date / Time venlafaxine [From Effexor] Allergy Intermediate hives Verified 11/13/19 13:52 Fish Containing Products Allergy anaphylaxis Verified 11/13/19 13:52 bupropion [From Wellbutrin] AdvReac Severe sucidal Verified 11/13/19 13:52 fluoxetine [From Prozac] AdvReac Severe sucidal Verified 11/13/19 13:52 topiramate [From Topamax] AdvReac Severe passing out Verified 11/13/19 13:52 lamotrigine [From Lamictal] AdvReac Mild weight gain Verified 11/13/19 13:52 duloxetine [From Cymbalta] AdvReac Unknown Bumps Verified 11/13/19 13:52 inside mouth escitalopram [From Lexapro] AdvReac Unknown Made me Verified 11/13/19 13:52 psychotic Current Medications Current Medications Generic Name Dose Route Start Last Admin Trade Name Freq PRN Reason Stop Dose Admin Acetaminophen 650 mg 11/16/19 03:59 11/16/19 06:30 Tylenol PO 650 mg Q8H PRN Administration FEVER Sodium Chloride 1,000 mls @ 100 mls/hr 11/15/19 22:30 11/15/19 23:35 Sodium Chloride 0.9% IV 100 mls/hr .Q10H LUCY Administration Piperacillin Sod/Tazobactam 50 mls @ 12.5 mls/hr 11/16/19 10:00 11/16/19 09:50 Sod 3.375 gm/ Sodium Chloride IV 12.5 mls/hr Q8H LUCY Administration Protocol Metoprolol Tartrate 100 mg 11/16/19 09:00 11/16/19 08:18 Lopressor PO 100 mg BID LUCY Administration Ondansetron HCl 4 mg 11/16/19 03:59 11/16/19 05:20 Zofran IVP 4 mg Q6H PRN Administration NAUSEA AND VOMITING Quetiapine Fumarate 300 mg 11/16/19 09:00 11/16/19 08:18 Seroquel PO 300 mg DAILY LUCY Administration PFSH [facility] PFSH: Medical History Anticoagulated on warfarin On warfarin since her pulmonary embolism in 2012. This is managed by her primary care provider. Body mass index (BMI) 45.0-49.9, adult Not motivated to lose weight Chronic constipation Controlled with medications followed by her primary care provider COPD (chronic obstructive pulmonary disease) Diagnosed in 2013 and is controlled with medication Depression Diagnosed at the age of 23 and has been on medication since then. She follows up with Dr. Benitez a psychiatrist and as well as therapy in [place]. She currently denies suicidal/homicidal ideation. Essential (primary) hypertension Diagnosed in 2019 and she follows up with Dr. Anderson and cardiology. Gastro-esophageal reflux disease without esophagitis Controlled with medication. H/O deep venous thrombosis Reports having a DVT in 2019 and states her warfarin dose was increased after this. She follows up with Dr. Crespo Obstructive sleep apnea Bi-pap 03/24, she has sent machine back and declines treatment Personal history of pulmonary embolism (~2012) States that she had a PE in 2012 and has been on warfarin since then. She had evaluation performed by Dr. Crespo which was negative TIA (transient ischemic attack) Reports having had a TIA in 2019. Denies any neurological deficits. Followed by her primary care provider. Surgical History Status post conization of cervix Office LEEP procedure performed by Dr. Zelaya in 2005 for MARY-2 on Pap smear. 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 Status post knee surgery 2017-open knee surgery for torn ACL Status post left breast lumpectomy Patient reports having had 3 lumpectomies of her left breast in 1999, 2007 and 2009 for benign lesions. Family History Mother Hypertension Heart disease Grandmother Hypertension maternal and paternal Breast cancer maternal, diagnosed at age 43 Colon cancer maternal, diagnosed at age 63 Father Hypertension Grandfather Hypertension maternal and paternal Heart disease maternal Denies family history of Ovarian cancer Diabetes Uterine cancer Thyroid condition Stroke Social History Smoking and tobacco status: current every day smoker Second hand smoke exposure: Yes Alcohol intake: current Other details last substance use: last used 2013 per patient Lives independently: Yes Housing: House Marital status: Single Number of children: 0 service: No History of recent travel: No Additional social history: - Tobacco Use: Denies past or present use Drug Use: Medical marijuana use Alcohol Use: Denies Work/Study Status: Disabled due to mental health problems Vitals/I&O/Wt Last Vital Signs Temp 97.7 F 11/16/19 11:34 Pulse 85 11/16/19 11:34 Resp 18 11/16/19 11:34 BP 135/81 11/16/19 11:34 Pulse Ox 96 11/16/19 11:34 11/15/19 11/16/19 11/16/19 22:59 06:59 14:59 Intake Total 120 / 120 Output Total 900 / 900 1810 / 1810 Balance -900 / -900 -1690 / -1690 Weight last 48 hrs Weight 153.314 kg Physical Exam Narrative: EXAM NARRATIVE: General: well developed, morbidly obese, in no acute distress laying comfortably in her bed. No signs of septic shock Neuro/Psych: alert, oriented to time, place and person. Appropriate mood and affect Neck: No thyromegaly Heart: S1-S2 heard, regular rate and rhythm. Lungs: Clear to auscultation bilaterally. No active respiratory distress or chest pain Breast: Patient declined Abdomen: Soft, morbidly obese, no obvious organomegaly however exam is limited by patient body habitus, no umbilical hernia, nontender nondistended Legs: No pedal edema no calf tenderness. Nonpitting edema bilateral lower extremity. Back: No CVA tenderness Skin: Normal over abdomen, multiple stretch melgar seen Lymphadenopathy: No inguinal lymphadenopathy External genitalia: Appears normal, no lesions, normal hair, no significant bleeding noticed Bladder: Nontender Rectum: Deferred Urinary Catheter Management^: [place]: Cath Placed During This Visit: yes Reason for Continuing Indwelling Catheter: Assist Healing of Perineal & Sacral Wounds- Incontinent Patients Urinary Catheter Date of Insertion: 11/15/19 Urinary Catheter Time of Insertion: 23:09 Data Micro: Micro: Microbiology 11/16/19 01:48 Blood Culture - Pr eliminary Blood SPECIMEN [facility] ROSALINA 11/15/19 22:27 Blood Culture - Pr eliminary Blood SPECIMEN [facility] A&P Assessment and plan (1) Vaginal bleeding: The patient was counseled regarding recurrent vaginal bleeding may be due to her anticoagulation therapy and morbid obesity leading to unopposed estrogen stimulation. The endometrial biopsy performed 3 days ago was benign. The medical acute treatment for abnormal uterine bleeding with conjugated estrogen or tranexamic acid is contraindicated at this time due to the patient's anticoagulation therapy possible interaction and risk of developing blood clots. Surgical management is an option if bleeding worsen and significant anemia develops. She is hemodynamically stable. CBC within normal limits with no anemia. Recommendation: Continue IV therapy for UTI and observation. 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
--- NOTE | 2019-11-16 14:56 | P.PN_ITS ---
Subjective Subjective: Interval history: Chart reviewed and case discussed with Dr. Burrows this AM. Hemoglobin stable, hemodynamically stable. Patient resting in bed, reports less lower abdominal discomfort and some dysuria; has not felt strong enough to get out of bed so far today. Took a dose of Coumadin 4 mg yesterday. Last urine cx (10/19/19) grew ESBL E.coli so will switch to Primaxin; she is already failed treatment with bactrim and macrobid with continued symptoms. Will also place on isolation precautions. Discussed potential need for PICC line placement if most recent urine cx result in ESBL. Medications: Reviewed: Yes Medication Review Details: Active Medications Generic Name Dose Route Start Last Admin Trade Name Freq PRN Reason Stop Dose Admin Acetaminophen 650 mg 11/16/19 03:59 11/16/19 06:30 Tylenol PO 650 mg Q8H PRN Administration FEVER Aripiprazole 2 mg 11/16/19 13:40 Abilify PO DAILY LUCY Sodium Chloride 1,000 mls @ 100 m ls/hr 11/15/19 22:30 11/15/19 23:35 Sodium Chloride 0.9% IV 100 mls/hr .Q10H LUCY Administration Piperacillin Sod/T azobactam 50 mls @ 12.5 mls /hr 11/16/19 10:00 11/16/19 09:50 Sod 3.375 gm/ So dium Chloride IV 12.5 mls/hr Q8H LUCY Administration Protocol Metoprolol Tartrat e 100 mg 11/16/19 09:00 11/16/19 08:18 Lopressor PO 100 mg BID LUCY Administration Morphine Sulfate 4 mg 11/16/19 03:59 Morphine IVP Q4H PRN SEVERE PAIN Ondansetron HCl 4 mg 11/16/19 03:59 11/16/19 05:20 Zofran IVP 4 mg Q6H PRN Administration NAUSEA AND VOMITI NG Quetiapine Fumarat e 300 mg 11/16/19 09:00 11/16/19 08:18 Seroquel PO 300 mg DAILY LUCY Administration venlafaxine [From Effexor] Allergy (Intermediate, Verified 11/13/19 13:52) hives Fish Containing Products Allergy (Verified 11/13/19 13:52) anaphylaxis bupropion [From Wellbutrin] Adverse Reaction (Severe, Verified 11/13/19 13:52) sucidal fluoxetine [From Prozac] Adverse Reaction (Severe, Verified 11/13/19 13:52) sucidal topiramate [From Topamax] Adverse Reaction (Severe, Verified 11/13/19 13:52) passing out lamotrigine [From Lamictal] Adverse Reaction (Mild, Verified 11/13/19 13:52) weight gain duloxetine [From Cymbalta] Adverse Reaction (Unknown, Verified 11/13/19 13:52) Bumps inside mouth escitalopram [From Lexapro] Adverse Reaction (Unknown, Verified 11/13/19 13:52) Made me psychotic Vitals/I&O/Wt Last Vital Signs Temp 97.7 F 11/16/19 11:34 Pulse 85 11/16/19 11:34 Resp 18 11/16/19 11:34 BP 135/81 11/16/19 11:34 Pulse Ox 96 11/16/19 11:34 11/15/19 11/16/19 11/16/19 22:59 06:59 14:59 Intake Total 120 / 120 Output Total 900 / 900 1810 / 1810 Balance -900 / -900 -1690 / -1690 Weight last 48 hrs Weight 153.314 kg Physical Exam Const: COMMON NORMALS: no acute distress, patient oriented x3 and alert GENERAL APPEARANCE: cooperative, comfortable and in distress; not ill appearing NUTRITIONAL APPEARANCE: obese morbidly obese ORIENTATION/CONSCIOUSNESS: Yes awake HENMT: COMMON NORMALS: normocephalic, atraumatic, hearing grossly normal bilaterally and moist oral mucous membranes HEAD & SCALP: normocephalic and atraumatic Eye: COMMON NORMALS: Equal, round and reactive pupils present, EOMs intact bilaterally and conjunctivae normal CONJUNCTIVA: Yes conjunctivae normal PUPIL: Yes Equal, round and reactive pupils present Neck/C-Spine: COMMON NORMALS: full ROM GENERAL: Yes normal visual inspection and Yes trachea midline OTHER: -short, thick neck Chest: CHEST: Yes Symmetrical chest wall rise Resp: COMMON NORMALS: normal respiratory effort, No retractions, No use of accessory muscles and clear to auscultation bilaterally EFFORT & INSPECTION: Yes able to speak in complete sentences, Yes symmetric chest movement and No tachypneic AUSCULTATION: clear to auscultation bilaterally OTHER: -on RA Cardio: COMMON NORMALS: regular rate, regular rhythm, S1 normal heart sound present, S2 normal heart sound present and No murmurs present (Cardio) RATE: regular rate RHYTHM: regular rhythm HEART SOUNDS: S1 normal heart sound present and S2 normal heart sound present GI: COMMON NORMALS: Normal to inspection, nondistended, normoactive bowel sounds present, Soft to palpation and non-tender INSPECTION: Yes central obesity PALPATION: Yes Soft to palpation : BLADDER/KIDNEY EXAM: Yes catheter in place Catheter type (Female): urethral Extremity: COMMON NORMALS: normal to inspection, full ROM, no clubbing, cyanosis or edema and no pedal edema Neuro: COMMON NORMALS: patient oriented x3, moves all extremities, no focal motor deficits and no sensory deficits noted SENSORIUM/ORIENTATION: Yes alert Psych: COMMON NORMALS: mental status grossly normal, Normal thought process present, cooperative, normal affect and speech normal SPEECH: Yes normal speech THOUGHT PROCESS: Normal thought process present Skin: COMMON NORMALS: no rashes or lesions noted, no jaundice, no petechiae and no mottling GENERAL SKIN EXAM: no rashes or lesions noted Urinary Catheter Management^: [place]: Cath Placed During This Visit: yes Urethral Indwelling: Yes Reason for Continuing Indwelling Catheter: Assist Healing of Perineal & Sacral Wounds- Incontinent Patients Urinary Catheter Date of Insertion: 11/15/19 Urinary Catheter Time of Insertion: 23:09 Data : 11/16/19 04:08 11/16/19 04:08 Micro: Microbiology 11/16/19 01:48 Blood Culture - Preliminary Blood SPECIMEN COLLECTED 11/15/19 22:27 Blood Culture - Preliminary Blood SPECIMEN COLLECTED A&P Assessment and plan (1) Vaginal bleeding: -had recent LEEP procedure done on 11/13/19 with marginal bleeding noted during procedure; done due to abnormal uterine bleeding and + HPV -is on anticoagulation with coumadin for DVT, PE which had been held for 3 days prior to procedure, she took one dose of coumadin yesterday (11/14); remains on hold -INR-0.99 -H/H is stable, continue to monitor -EMB pathology is benign -hemodynamically stable, continue to monitor vital signs -Peer Counselor consult by Dr. Burrows appreciated Status: Acute (2) UTI (urinary tract infection): -UA indicative of infection -associated sepsis as evidenced by lactic acidosis, tachycardia; both resolved -f/u blood and urine cx; previous urine cx (10/24/19) grew ESBL E.coli; will switch to primaxin and place on isolation precautions. May need PICC line placement if similar result on urine cx Status: Acute Qualifiers: Hematuria presence: with hematuria Urinary tract infection type: site unspecified Qualified Code(s): N39.0 - Urinary tract infection, site not specified; R31.9 - Hematuria, unspecified (3) Sepsis: -secondary to UTI -VSS, lactic acid wnl Status: Resolved Qualifiers: Sepsis acute organ dysfunction status: unspecified Sepsis type: sepsis due to unspecified organism Qualified Code(s): A41.9 - Sepsis, unspecified organism (4) Obstructive sleep apnea: Status: Chronic (5) Essential (primary) hypertension: -VSS; continue to monitor vital signs -hold oral antihypertensives Status: Chronic (6) H/O deep venous thrombosis: -on Coumadin and f/u with Dr. Crespo Status: Acute (7) Personal history of pulmonary embolism: -on Coumadin Status: Acute (8) Abnormal uterine bleeding (AUB): Status: Chronic (9) Anticoagulated on warfarin: -AC on hold Status: Chronic Additional A&P Information -hx of CAD, [place] in 2007; has had cardiac workup including cath, follows up with Dr. Anderson -Morbid obesity: BMI-58 kg/m2 -PTSD, anxiety, depression -iron deficiency anemia -noted hyperglycemia, check A1c, on consistent carb diet -DVT ppx with SCDs, no AC due to bleeding -Dispo: home -Code status: FULL code Attestations Medical Necessity Statement*: Patient requires hospitalization for continued management of UTI, vaginal bleeding. Time Spent in Patient Care: Greater than 35 minutes (>than 50% of time sp ent in counselling and/or direct pt care on unit) . Coding Level of Care Code Acute Engine Lathe Set Up Operator Tool for Chg Fwd Exam Comprehensive Diagnoses Vaginal bleeding N93.9 UTI (urinary tract infection) N39.0; R31.9 Hematuria presence: with hematuria Urinary tract infection type: site unspecified Sepsis A41.9 Sepsis acute organ dysfunction status: unspecified Sepsis type: sepsis due to unspecified organism Obstructive sleep apnea G47.33 Essential (primary) hypertension I10 H/O deep venous thrombosis Z86.718 Personal history of pulmonary embolism Z86.711 Abnormal uterine bleeding (AUB) N93.9 Anticoagulated on warfarin Z79.01
[2019-11-16] MEDS: ARIPiprazole 2 mg Tablet PO (14:57)
[2019-11-16] MEDS: morphine 4 mg/mL SDV 1 mL IVP ×2 (15:00→20:49)
[2019-11-16] MEDS: sodium chloride 0.9% 1,000 ML 100 ML IV (15:03)
--- NOTE | 2019-11-16 19:42 | NUR.SHIFT ---
Shift assessment completed, Pt is A&O x4, VS WNL, stated her name and birthday, moved all extremities fluidly, complained of pain in left lower quadrant, this is not a new pain, wearing SCDs bilaterally, turned self, has a kamara that is patent, draining, and intact, has had 600mL urine output since start of shift. No other needs voiced at this time, will continue to monitor.
[2019-11-16] MEDS: lactobacillus 1 Tablet 1 TAB PO (20:49)
[2019-11-17] VITALS (9 sets, daily range): BP systolic 103–143; BP diastolic 69–84; PULSE 74–84; RESP 16–20; TEMP 36.5–36.9; O2SAT 94–98
[2019-11-17] MEDS: acetaminophen 325 mg Tablet 650 MG PO (01:29)
[2019-11-17] MEDS: morphine 4 mg/mL SDV 1 mL IVP (01:30)
[2019-11-17] MEDS: sodium chloride 0.9% 1,000 ML 100 ML IV ×2 (02:53→12:13)
[2019-11-17 04:19] LABS: Basophils % 0.2 %; Hematocrit 36.6 % (37.0-47.0); Hemoglobin 11.6 g/dL (11.5-15.3); Lymphocytes # 1.2 10^3/uL (0.8-4.8); Mean Corpuscular HGB Conc 31.7 g/dL (30.0-36.0); Mean Corpuscular Hemoglobin 28.4 pg (28.0-34.0); Mean Corpuscular Volume 89.7 fL (81-99); Mean Platelet Volume 10.7 fL (7.4-10.4); Monocytes # 0.4 10^3/uL (0.2-0.9); Neutrophils % 64.6 %; Nucleated Red Blood Cells % 0 %; Platelet Count 172 10^3/cmm (130-400); Red Blood Count 4.08 10^6/uL (4.1-5.3); Red Cell Distribution Width 15.4 % (12.1-15.1); White Blood Count 4.6 10^3/uL (4.0-10.0)
[2019-11-17 04:34] LABS: Anion Gap 12.7 (5-19); Blood Urea Nitrogen 7 mg/dL (6-20); Carbon Dioxide 26 mmol/L (22-29); Chloride 103 mmol/L (98-107); Glomerular Filtration Rate 60.8 mL/min (90-130); Glucose 174 mg/dL (65-115); Osmolality Calculated 286 mOsm/kg (285-295); Potassium 3.7 mmol/L (3.5-5.1); Sodium 138 mmol/L (136-145)
[2019-11-17 04:54] LABS: Estmated Average Glucose 186; Hemoglobin A1C 8.1 % (4.0-6.0)
--- NOTE | 2019-11-17 06:12 | PC.NURSE ---
END OF SHIFT NOTE Pt required morphine 2 times throughout the night, has had 1100mL urine out, A&Ox4, no other needs voiced.
[2019-11-17] MEDS: ARIPiprazole 2 mg Tablet 4 MG PO (08:06)
[2019-11-17] MEDS: metoprolol tartrate 50 mg Tablet 100 MG PO ×2 (08:06→17:05)
[2019-11-17] MEDS: lactobacillus 1 Tablet 1 TAB PO ×4 (08:06→21:48)
[2019-11-17] MEDS: desvenlafaxine 50 mg Tablet 100 MG PO (08:07)
--- NOTE | 2019-11-17 11:54 | PC.CHAP ---
Pastoral Care Encounter/Spiritual Assessment Type of Contact [] Declined sand operator visit [] Patient/Family/Request visit [] Outpatient visit [X] Follow-up visit [] Physician referral [] Code/Alert [X] Routine visit [] Staff referral [] Actively dying [] Patient sleeping [] Family support [] [] Out of room [] Palliative care [] [] Receiving care in room [] Pre-surgical visit [] Trauma [] Long length of stay [] ICU visit [] Other: Relational/Emotional Strength [] Patient feels connected with others/family/visitors/staff [] Distress [] Loneliness/isolation [] Abandonment Spirituality of Patient [X] Person of Caridad [] Attends Mosque of their Caridad [X] Believes in Prayer [X] Reads Bible or Buddhist materials [] There are Spiritual issues to be addressed Aerospace Assembler Interventions [X] Prayer [X] Active listening [X] Non-anxious presence [X] Spiritual/emotional support [] Crisis/trauma care [] Spiritual counseling [] Bereavement support [] Provided bereavement packet [] Provided Bible/devotional materials [] Provided toy/stuffed animal, coloring book to patient or family member [] Provided Communion [] Anointing/[place] [] Salvation [X] Completed spiritual assessment [] Other: Impact on Illness or Injury [] Angry [] Fearful [] Anxious [] Often cries [] Exhaustion [] Unable to work [] Unable to attend muslim [] Unable to walk/stand [] Unable to read [] Unable to drive [] Unable to eat/drink [] Unable to sleep [] Unable to be with family [] Patient intubated [] Other: Summary I re-visited the PT this morning in follow-up to Marco Antonio's visit with her yesterday. She had a spiritual awakening yesterday and was doing so much better today. She shared deeply personal information, was making a list of questions for her dr, was seeking uplifting reading and music. Time spent with patient 20 minutes
--- NOTE | 2019-11-17 13:47 | P.PN_ITS ---
Subjective Subjective: Interval history: Hemodynamically stable, hemoglobin remains within normal limits, urine cultures growing gram-negative rods so far, remains on isolation precautions and on Primaxin. Requesting removal of Corona catheter and discontinuation of telemetry, she has maintained NSR, reports decreased vaginal bleeding today. Has noticed some swelling in her hands and legs so will discontinue IVF as she has good oral intake. Medications: Reviewed: Yes Medication Review Details: Active Medications Generic Name Dose Route Start Last Admin Trade Name Freq PRN Reason Stop Dose Admin Acetaminophen 650 mg 11/16/19 03:59 11/17/19 01:29 Tylenol PO 650 mg Q8H PRN Administration FEVER Alprazolam 2 mg 11/17/19 10:30 11/17/19 10:42 Xanax PO 2 mg TID LUCY Administration Aripiprazole 4 mg 11/17/19 09:00 11/17/19 08:06 Abilify PO 4 mg DAILY LUCY Administration Desvenlafaxine 100 mg 11/17/19 09:00 11/17/19 08:07 Pristiq PO 100 mg DAILY LUCY Administration Sodium Chloride 1,000 mls @ 100 m ls/hr 11/15/19 22:30 11/17/19 12:13 Sodium Chloride 0.9% IV 100 mls/hr .Q10H LUCY Administration Imipenem/Cilastati n Sodium 250 100 mls @ 200 mls /hr 11/16/19 15:30 11/17/19 09:53 mg/ Sodium Chlor tommy IV Infused Q6H LUCY Infusion Protocol Lactobacillus Acid ophilus 1 tab 11/16/19 21:00 11/17/19 12:13 Floranex PO 1 tab QID LUCY Administration Metoprolol Tartrat e 100 mg 11/16/19 09:00 11/17/19 08:06 Lopressor PO 100 mg BID LUCY Administration Morphine Sulfate 4 mg 11/16/19 03:59 11/17/19 01:30 Morphine IVP 4 mg Q4H PRN Administration SEVERE PAIN Ondansetron HCl 4 mg 11/16/19 03:59 11/16/19 20:51 Zofran IVP 4 mg Q6H PRN Administration NAUSEA AND VOMITI NG Quetiapine Fumarat e 300 mg 11/16/19 21:00 11/16/19 21:01 Seroquel PO 300 mg BEDTIME LUCY Administration venlafaxine [From Effexor] Allergy (Intermediate, Verified 11/13/19 13:52) hives Fish Containing Products Allergy (Verified 11/13/19 13:52) anaphylaxis bupropion [From Wellbutrin] Adverse Reaction (Severe, Verified 11/13/19 13:52) sucidal fluoxetine [From Prozac] Adverse Reaction (Severe, Verified 11/13/19 13:52) sucidal topiramate [From Topamax] Adverse Reaction (Severe, Verified 11/13/19 13:52) passing out lamotrigine [From Lamictal] Adverse Reaction (Mild, Verified 11/13/19 13:52) weight gain duloxetine [From Cymbalta] Adverse Reaction (Unknown, Verified 11/13/19 13:52) Bumps inside mouth escitalopram [From Lexapro] Adverse Reaction (Unknown, Verified 11/13/19 13:52) Made me psychotic Vitals/I&O/Wt Last Vital Signs Temp 98.4 F 11/17/19 11:31 Pulse 84 11/17/19 11:31 Resp 20 H 11/17/19 11:31 BP 131/84 11/17/19 11:31 Pulse Ox 97 11/17/19 11:31 11/16/19 11/17/19 11/17/19 22:59 06:59 14:59 Intake Total 422 / 1592 1100 / 2692 1615.333 / 1615.333 Output Total 650 / 2460 550 / 3010 1550 / 1550 Balance -228 / -868 550 / -318 65.333 / 65.333 Weight last 48 hrs Weight 153.314 kg Physical Exam Const: COMMON NORMALS: no acute distress, patient oriented x3 and alert GENERAL APPEARANCE: cooperative, comfortable and in distress; not ill appearing NUTRITIONAL APPEARANCE: obese morbidly obese ORIENTATION/CONSCIOUSNESS: Yes awake HENMT: COMMON NORMALS: normocephalic, atraumatic, hearing grossly normal bilaterally and moist oral mucous membranes HEAD & SCALP: normocephalic and atraumatic Eye: COMMON NORMALS: Equal, round and reactive pupils present, EOMs intact bilaterally and conjunctivae normal CONJUNCTIVA: Yes conjunctivae normal PUPIL: Yes Equal, round and reactive pupils present Neck/C-Spine: COMMON NORMALS: full ROM GENERAL: Yes normal visual inspection and Yes trachea midline OTHER: -short, thick neck Chest: CHEST: Yes Symmetrical chest wall rise Resp: COMMON NORMALS: normal respiratory effort, No retractions, No use of accessory muscles and clear to auscultation bilaterally EFFORT & INSPECTION: Yes able to speak in complete sentences, Yes symmetric chest movement and No tachypneic AUSCULTATION: clear to auscultation bilaterally OTHER: -on RA Cardio: COMMON NORMALS: regular rate, regular rhythm, S1 normal heart sound present, S2 normal heart sound present and No murmurs present (Cardio) RATE: regular rate RHYTHM: regular rhythm HEART SOUNDS: S1 normal heart sound present and S2 normal heart sound present GI: COMMON NORMALS: Normal to inspection, nondistended, normoactive bowel sounds present, Soft to palpation and non-tender INSPECTION: Yes central obesity PALPATION: Yes Soft to palpation : BLADDER/KIDNEY EXAM: Yes catheter in place Catheter type (Female): urethral Extremity: COMMON NORMALS: normal to inspection, full ROM, no clubbing, cyanosis or edema and no pedal edema NARRATIVE EXTREMITY EXAM: -non-pitting edema of bilateral hands, ankles Neuro: COMMON NORMALS: patient oriented x3, moves all extremities, no focal motor deficits and no sensory deficits noted SENSORIUM/ORIENTATION: Yes alert Psych: COMMON NORMALS: mental status grossly normal, Normal thought process present, cooperative, normal affect and speech normal SPEECH: Yes normal speech THOUGHT PROCESS: Normal thought process present Skin: COMMON NORMALS: no rashes or lesions noted, no jaundice, no petechiae a nd no mottling NARRATIVE SKIN EXAM: -mild intertrigo involving pannus GENERAL SKIN EXAM: no rashes or lesions noted and Excoriation Urinary Catheter Management^: Corona: Cath Placed During This Visit: yes Urethral Indwelling: Yes Reason for Continuing Indwelling Catheter: Accurate Measurement of Urinary Output in Critically Ill Patients Urinary Catheter Date of Insertion: 11/15/19 Urinary Catheter Time of Insertion: 23:09 Data : 11/17/19 03:55 11/17/19 03:55 Micro: Microbiology 11/15/19 23:06 Urine Culture - Preliminary Urine Catheterized Gram Negative Rods 11/16/19 01:48 Blood Culture - Preliminary Blood NEGATIVE TO DATE 11/15/19 22:27 Blood Culture - Preliminary Blood NEGATIVE TO DATE A&P Assessment and plan (1) Vaginal bleeding: -had recent LEEP procedure done on 11/13/19 with marginal bleeding noted during procedure; done due to abnormal uterine bleeding and + HPV -is on anticoagulation with coumadin for DVT, PE which had been held for 3 days prior to procedure, she took one dose of coumadin on 11/14; remains on hold -INR-0.93 -H/H is stable, continue to monitor -EMB pathology is benign -hemodynamically stable, continue to monitor vital signs -Corrugator Machine Operator consult by Dr. Burrows appreciated Status: Acute (2) UTI (urinary tract infection): -UA indicative of infection -associated sepsis as evidenced by lactic acidosis, tachycardia; both resolved -blood cx: prelim negative -urine cx: GNRs; pending ID & sensitivity; on Primaxin and isolation precautions -previous urine cx (10/24/19) grew ESBL E.coli; May need PICC line placement if similar result on urine cx -d/c IVF -Corona catheter removal today Status: Acute Qualifiers: Hematuria presence: with hematuria Urinary tract infection type: site unspecified Qualified Code(s): N39.0 - Urinary tract infection, site not specified; R31.9 - Hematuria, unspecified (3) Sepsis: -secondary to UTI -VSS, lactic acid wnl Status: Resolved Qualifiers: Sepsis acute organ dysfunction status: unspecified Sepsis type: sepsis due to unspecified organism Qualified Code(s): A41.9 - Sepsis, unspecified organism (4) Obstructive sleep apnea: Status: Chronic (5) Essential (primary) hypertension: -VSS; continue to monitor vital signs -hold oral antihypertensives Status: Chronic (6) H/O deep venous thrombosis: -on Coumadin and f/u with Dr. Crespo Status: Acute (7) Personal history of pulmonary embolism: -on Coumadin Status: Acute (8) Abnormal uterine bleeding (AUB): Status: Chronic (9) Anticoagulated on warfarin: -AC on hold Status: Chronic Additional A&P Information -hx of CAD, CT in 2007; has had cardiac workup including cath, follows up with Dr. Anderson -Morbid obesity: BMI-58 kg/m2 -PTSD, anxiety, depression -iron deficiency anemia -noted hyperglycemia, check A1c, on consistent carb diet -DVT ppx with SCDs, no AC due to bleeding -Dispo: home -Code status: FULL code Attestations Medical Necessity Statement*: Patient requires hospitalization for continued IV antibiotic treatment of UTI, monitoring of hemoglobin secondary to vaginal bleeding. Time Spent in Patient Care: 16 - 35 minutes (>than 50% of time spent in counselling and/or direct pt care on unit) . Coding Level of Care Code Acute Inspector Metal Can for Chg Fwd Exam Comprehensive Diagnoses Vaginal bleeding N93.9 UTI (urinary tract infection) N39.0; R31.9 Hematuria presence: with hematuria Urinary tract infection type: site unspecified Sepsis A41.9 Sepsis acute organ dysfunction status: unspecified Sepsis type: sepsis due to unspecified organism Obstructive sleep apnea G47.33 Essential (primary) hypertension I10 H/O deep venous thrombosis Z86.718 Personal history of pulmonary embolism Z86.711 Abnormal uterine bleeding (AUB) N93.9 Anticoagulated on warfarin Z79.01
[2019-11-17 16:25] LABS: Glucose Point of Care 140 mg/dL (70-110)
[2019-11-17] MEDS: FUROsemide 10 mg/mL SDV 4mL 40 MG IVP (17:04)
[2019-11-17] MEDS: nystatin powder 15 gm Btl 1 APPLIC TOPICAL (18:32)
[2019-11-17 21:28] LABS: Glucose Point of Care 157 mg/dL (70-110)
[2019-11-17] MEDS: quetiapine 300 mg Tablet PO (21:48)
[2019-11-18 03:40] VITALS: BP 122/85; PULSE 74; RESP 20; TEMP 36.6; O2SAT 94
--- NOTE | 2019-11-18 06:05 | PC.NURSE ---
Shift Summary pt took meds whole with no problems. pt has had adequate urinary output and stated she has only bled through one pad throughout the night and her bleeding was not as heavy as before. pt slept well tonight.
[2019-11-18 06:06] LABS: Hematocrit 38.1 % (37.0-47.0); Hemoglobin 12.1 g/dL (11.5-15.3)
[2019-11-18 06:09] LABS: Glucose Point of Care 171 mg/dL (70-110)
[2019-11-18 07:16] VITALS: BP 116/79; PULSE 82; RESP 18; TEMP 36.5; O2SAT 94
[2019-11-18] MEDS: desvenlafaxine 50 mg Tablet 100 MG PO (08:34)
[2019-11-18] MEDS: lactobacillus 1 Tablet 1 TAB PO ×2 (08:34→12:31)
[2019-11-18] MEDS: ARIPiprazole 2 mg Tablet 4 MG PO (08:35)
[2019-11-18] MEDS: metoprolol tartrate 50 mg Tablet 100 MG PO (08:35)
[2019-11-18] MEDS: nystatin powder 15 gm Btl 1 APPLIC TOPICAL (08:36)
--- NOTE | 2019-11-18 09:59 | PC.CHAP ---
Pastoral Care Encounter/Spiritual Assessment Type of Contact [] Declined skip operator visit [] Patient/Family/Request visit [] Outpatient visit [] Follow-up visit [] Physician referral [] Code/Alert [x] Routine visit [] Staff referral [] Actively dying [] Patient sleeping [] Family support [] [] Out of room [] Palliative care [] [] Receiving care in room [] Pre-surgical visit [] Trauma [] Long length of stay [] ICU visit [] Other: Relational/Emotional Strength [] Patient feels connected with others/family/visitors/staff [] Distress [] Loneliness/isolation [] Abandonment Spirituality of Patient [] Person of Caridad [] Attends Muslim of their Caridad [] Believes in Prayer [] Reads Bible or Pentecostal materials [] There are Spiritual issues to be addressed Property Management Coordinator Interventions [x] Prayer [] Active listening [] Non-anxious presence [] Spiritual/emotional support [] Crisis/trauma care [] Spiritual counseling [] Bereavement support [] Provided bereavement packet [] Provided Bible/devotional materials [] Provided toy/stuffed animal, coloring book to patient or family member [] Provided Communion [] Anointing/[place] [] Salvation [x] Completed spiritual assessment [] Other: Impact on Illness or Injury [] Angry [] Fearful [] Anxious [] Often cries [] Exhaustion [] Unable to work [] Unable to attend quaker [] Unable to walk/stand [] Unable to read [] Unable to drive [] Unable to eat/drink [] Unable to sleep [] Unable to be with family [] Patient intubated [] Other: Summary Patient ready to return home. Patient has small pets she is missing and concerned regarding their care. Time spent with patient 20 min
[2019-11-18 11:06] VITALS: BP 119/80; PULSE 80; RESP 20; TEMP 36.6; O2SAT 95
[2019-11-18 11:47] LABS: Glucose Point of Care 191 mg/dL (70-110)
[2019-11-18 15:24] VITALS: BP 131/81; PULSE 85; RESP 18; TEMP 36.5; O2SAT 96
--- NOTE | 2019-11-18 15:54 | P.DS_ITS ---
Discharge Providers Date of Admission: 11/16/19 02:34 Date of Discharge: November 18, 2019 Attending Provider at Admission: Daja Mcgrath MD Attending Provider at Discharge: Jessica Chua MD Primary Care Provider: Christa Chew APN Diagnoses at Discharge Discharge Diagnosis (1) Vaginal bleeding: Status: Acute (2) UTI (urinary tract infection): Status: Acute Qualifiers: Hematuria presence: with hematuria Urinary tract infection type: site unspecified Qualified Code(s): N39.0 - Urinary tract infection, site not specified; R31.9 - Hematuria, unspecified (3) Sepsis: Status: Resolved Qualifiers: Sepsis acute organ dysfunction status: unspecified Sepsis type: sepsis due to unspecified organism Qualified Code(s): A41.9 - Sepsis, unspecified organism (4) Obstructive sleep apnea: Status: Chronic (5) Essential (primary) hypertension: Status: Chronic Problem details: Diagnosed in 2019 and she follows up with Dr. Anderson and cardiology. (6) H/O deep venous thrombosis: Status: Acute Problem details: Reports having a DVT in 2019 and states her warfarin dose was increased after this. She follows up with Dr. Crespo (7) Personal history of pulmonary embolism: Status: Acute Problem details: States that she had a PE in 2012 and has been on warfarin since then. She had evaluation performed by Dr. Crespo which was negative (8) Abnormal uterine bleeding (AUB): Status: Chronic (9) Anticoagulated on warfarin: Status: Chronic Reason for Visit Reason for Visit: Reason For Visit: VAGINAL BLEEDING POST PROCEDURE Hospital Course Discharge Summary: Heladio Branch is a 44 year old female who carries diagnosis of unprovoked DVT, PE on Coumadin, status post LEEP and endometrial biopsy procedure on 11/12 coming in for vaginal bleeding. Coumadin was held for 3 days before the procedure, she started Coumadin on , on Monday she started bleeding vaginally, she was changing her pads every 90 minutes which were soaked with fresh red blood with minimal clots. Seh was evaluated by Dr. Burrows from [facility] and managed conservatively. Conjugated estrogen or tranexamic acid were relatively contraindicated given risk of thromboemblism. Her bleeding eventually stopped and at the time of discharge she is only spotting minimally intravaginally. She believes this may be related to her regular periods as this is her usual date. She remained hemodynamically stable. Hemoglobin remained stable during the course of admission. Coumadin remained on hold for a day while she was inpatient. Risk and benefit ratio of resuming versus holding Coumadin were discussed with the patient in great length. Overall given that patient has a history of recurrent thromboembolism including unprovoked PE, the risk of recurrent thromboembolic event which may potentially be fatal outweighs the risk of vaginal bleeding at this time. In light of this, Coumadin is being resumed at 4 mg p.o. daily. He is to follow-up with Dr. Crespo's office this week and will get an INR check midweek. Should the bleeding worsen again, she is recommended to come back to the ER. Yrn de león agrees with this plan and does wish to resume Coumadin. Above plan was also discussed with Dr. Burrows. She was additionally found to have a UTI as evidenced by a positive UA and symptoms of dysuria. Culture grew ESBL E. coli. She is being discharged on levofloxacin after having received IV Primaxin in the hospital to complete a 5- day course for UTI. Physical Exam Narrative: EXAM NARRATIVE: GEN: Awake, alert and oriented, no acute distress CVS: S1S2 N RS: CTA B/L Abd: Soft, nt/nd , bs+ TAR AND AMMONIA PUMP OPERATOR: no focal neuro deficits Urinary Catheter Management^: Corona: Cath Placed During This Visit: yes, but has since been removed by the nurse Urethral Indwelling: Yes Reason for Continuing Indwelling Catheter: Decision to DC Catheter Urinary Catheter Date of Insertion: 11/15/19 Urinary Catheter Time of Insertion: 23:09 Date Urinary Catheter Removed: 11/17/19 Time Urinary Catheter Discontinued: 17:34 Discharge Data Data Completed and Pending: Completed Studies During Hospitalization Category Date Time Status CT angio chest w abd pel w con Stat Cat Scan 11/16/19 00:22 Completed Pending at discharge Category Date Time Status Blood Culture Sta t Lab 11/16/19 01:48 Results Labs from last 24 hours 11/18/19 11/18/19 11/18/19 11:07 06:04 05:37 Hgb 12.1 Hct 38.1 POC Glucose 191 171 Urine Color Urine Appearance Urine pH Ur Specific Gravit y Urine Protein Urine Glucose (UA) Urine Ketones Urine Blood Urine Nitrate Urine Bilirubin Urine Urobilinogen Ur Leukocyte Ana Paula ase Urine RBC Urine WBC Ur Squamous Epith Cells Urine Bacteria Urine Mucus 11/17/19 11/17/19 11/15/19 21:10 16:22 23:06 Hgb Hct POC Glucose 157 140 Urine Color Yellow Urine Appearance Sl hazy Urine pH 5 Ur Specific Gravit y 1.025 Urine Protein Neg Urine Glucose (UA) 4+ H Urine Ketones 1+ H Urine Blood 2+ H Urine Nitrate Positive H Urine Bilirubin Neg Urine Urobilinogen Norm Ur Leukocyte Ana Paula ase Negative Urine RBC 0-4 H Urine WBC 25-40 H Ur Squamous Epith Cells 5-10 H Urine Bacteria 2+ H Urine Mucus 1+ Vitals: Last Vital Signs Temp 97.7 F 11/18/19 15:24 Pulse 85 11/18/19 15:24 Resp 18 11/18/19 15:24 BP 131/81 11/18/19 15:24 Pulse Ox 96 11/18/19 15:24 Discharge Plan Discharge Patient Disposition: Home, Self-Care Condition: Stable Prescriptions: New ciprofloxacin HCl 100 mg tablet 500 mg PO BID 3 Days Qty: 7 RF: 0 Continued aripiprazole [Abilify] 2 mg tablet 4 mg PO BEDTIME RF: 0 peg 3350-sod chlor-potass cit 17 gram/ scoop kit 17 gm PO DAILY RF: 0 albuterol sulfate [Ventolin HFA] 90 mcg/actuation HFA aerosol inhaler 2 puff INHALATION QID RF: 0 acetaminophen [Tylenol 8 Hour] 650 mg tablet extended release 650 mg PO Q8H PRN (Reason: Mild Pain (Scale Score 1-4)) RF: 0 nastktgsqctl-Qy-exak-minerals 18-0.4 mg tablet 1 tab PO DAILY RF: 0 ferrous sulfate 325 mg (65 mg iron) tablet 325 mg PO BID RF: 0 omeprazole 20 mg capsule,delayed release(DR/EC) 20 mg PO DAILY 30 Days Qty: 30 RF: 3 amlodipine 5 mg tablet 5 mg PO DAILY 30 Days Qty: 30 RF: 3 chlorthalidone 25 mg tablet 25 mg PO DAILY 30 Days Qty: 30 RF: 4 potassium chloride 10 mEq capsule, extended release 10 meq PO DAILY 30 Days Qty: 30 RF: 4 desvenlafaxine succinate [Pristiq] 100 mg tablet extended release 24 hr 100 mg PO DAILY RF: 0 quetiapine 300 mg tablet 300 mg PO BEDTIME RF: 0 silver nitrate applicators 75-25 % stick 1 applic TOPICAL ONCE Qty: 1 RF: 0 nystatin 100,000 unit/gram cream 1 applic TOPICAL DAILY Qty: 15 RF: 0 marijauna PO DAILY RF: 0 metoprolol tartrate 50 mg tablet 100 mg PO BID RF: 0 ibuprofen 200 mg capsule 400 mg PO Q6H PRN (Reason: Mild Pain (Scale Score 1-4)) RF: 0 tizanidine 4 mg tablet 4 mg PO TID PRN (Reason: muscle spasticity) Qty: 90 RF: 1 isosorbide mononitrate 20 mg tablet 20 mg PO BID Qty: 120 RF: 2 cholecalciferol (vitamin D3) 1,250 mcg (50,000 unit) capsule 1,250 mcg PO .weekly 30 Days Qty: 4 RF: 1 Xanax 2 mg Tablet 2 mg PO TID RF: 0 desvenlafaxine 100 mg Tablet Extended Release 24 Hr 100 mg PO DAILY RF: 0 Changed warfarin 2 mg tablet 4 mg PO DAILY Qty: 65 RF: 0 Discontinued nitrofurantoin monohyd/m-cryst [Macrobid] 100 mg capsule 100 mg PO BID RF: 0 Referrals: Christa Chew APN [Primary Care Provider] - 11/25/19 1:30 pm (You have a follow up appointment with Christa on November 24 at 1:30.) Rufus Crespo MD [Hospitalist] - 11/26/19 8:30 am (You have a follow up appointment with Dr. Luna office November 25 at 8:30am. This is as soon as they could get you in. If there is a opening they will call you.) Discharge Diet: Usual diet Discharge Activity: Resume usual activity Discharge Attestations Time Spent in Discharge Care*: greater than 30 min Quality Metrics Clinical Quality Measures During this hospital stay, did patient experience: None Coding Level of Care Code Acute Business Improvement Manager for Chg Fwd Diagnoses Vaginal bleeding N93.9 UTI (urinary tract infection) N39.0; R31.9 Hematuria presence: with hematuria Urinary tract infection type: site unspecified Sepsis A41.9 Sepsis acute organ dysfunction status: unspecified Sepsis type: sepsis due to unspecified organism Obstructive sleep apnea G47.33 Essential (primary) hypertension I10 H/O deep venous thrombosis Z86.718 Personal history of pulmonary embolism Z86.711 Abnormal uterine bleeding (AUB) N93.9 Anticoagulated on warfarin Z79.01
[2019-11-18 16:15] VITALS: BP 131/81; PULSE 85; RESP 18; TEMP 36.5; O2SAT 96
[2019-11-18] MEDS: warfarin 2 mg Tablet 4 MG PO (16:18)
--- NOTE | 2019-11-19 12:58 | PC.RESP ---
SMOKING CESSATION AND PULMONARY REHAB INFORMATION SENT TO PATIENT.
== END 2019-11-18 16:00 | disposition home or self-care (01) | DRG 872 ==
LOC: ER 22:35 → MEDSURG 11-16 02:34
PROVIDERS: Family Medicine; Obstetrics & Gynecology; Admitting Provider Internal Medicine; Emergency Provider Emergency Medicine; PCP Nurse Practitioner Family; Visit Provider Student in an Organized Health Care Education/Training Program
DX: A41.9 Sepsis, unspecified organism (principal); N39.0 Urinary tract infection, site not specified; Z68.43 Body mass index [BMI] 50.0-59.9, adult; E87.2 Acidosis; N93.9 Abnormal uterine and vaginal bleeding, unspecified; Z86.711 Personal history of pulmonary embolism; Z86.718 Personal history of other venous thrombosis and embolism; Z79.01 Long term (current) use of anticoagulants; R31.9 Hematuria, unspecified; E66.01 Morbid (severe) obesity due to excess calories; K59.09 Other constipation; J44.9 Chronic obstructive pulmonary disease, unspecified; F41.8 Other specified anxiety disorders; I10 Essential (primary) hypertension; K21.9 Gastro-esophageal reflux disease without esophagitis; G47.33 Obstructive sleep apnea (adult) (pediatric); Z86.73 Personal history of transient ischemic attack (TIA), and cerebral infarction without residual deficits; F17.210 Nicotine dependence, cigarettes, uncomplicated; Z98.890 Other specified postprocedural states; B96.20 Unspecified Escherichia coli [E. coli] as the cause of diseases classified elsewhere; Z79.51 Long term (current) use of inhaled steroids; R73.9 Hyperglycemia, unspecified; D50.9 Iron deficiency anemia, unspecified; F43.10 Post-traumatic stress disorder, unspecified
CPT/HCPCS: 12345; 36415; 36416; 51702; 71275; 74177; 80048; 80053; 81001; 81025; 82962; 83036; 83605; 84484; 85014; 85018; 85025; 85610; 85730; 87040; 87077; 87086; 87186; 88305; 93005; 96372; 96375; 99283; E0352; J0743; J1170; J1815; J1940; J2270; J2405; J2543; J7030; J7050; Q9967

== ENCOUNTER 2019-11-26 09:04 | Emergency (ER) | payer MEDICARE, MEDICAID, SELFPAY ==
[2019-11-26 09:04] VITALS: BP 148/73; PULSE 111; RESP 20; TEMP 36.6; O2SAT 98; BMI 59.4
--- NOTE | 2019-11-26 09:08 | XRR_ITS ---
PROCEDURE INFORMATION: Exam: XR Chest, 1 View Exam date and time: 11/26/2019 9:30 AM Age: 44 years old Clinical indication: Other: Chest pain, sides; Prior surgery; Surgery type: Lt breast TECHNIQUE: Imaging protocol: XR of the chest Views: 1 view. COMPARISON: CT angio chest w abd pel w con 11/16/2019 1:08 AM FINDINGS: Lungs: Lungs are well aerated without a focal area of consolidation. Pleural space: Unremarkable. No pleural effusion. No pneumothorax. Heart/Mediastinum: The cardiac silhouette appears enlarged, some of which is magnification related to the AP projection. Bones/joints: Unremarkable. XR/XR chest 1V portable [id number] IMPRESSION: Lungs are well aerated without a focal area of consolidation.
--- NOTE | 2019-11-26 09:21 | W.ED.CHESTPA ---
Documented by User: MARGARET Allison 11/26/19 13:35 HPI - Chest Pain General: Chief Complaint: Chest Pain Stated Complaint: CHEST PAIN Time Seen by Provider: 11/26/19 09:07 Source: patient Mode of arrival: EMS Limitations: no limitations History of Present Illness: HPI narrative: Patient is a 44-year-old female who presents to ED today for evaluation of chest pains. Patient tells me she began having chest pain last night but that it seemed to improve after taking her isosorbide and blood pressure medications. She tells me chest pain resumed around 5:30 AM this morning and awoke her from sleep. She had a follow-up appointment at the [facility] today and was complaining of chest pain there so was sent to the emergency department for evaluation. She was given 3 nitros at [facility] which she states helped chest pain. Aspirin given via EMS. Patient was recently admitted to the hospital due to vaginal bleeding following a LEEP. She was subsequently found to have ESBL E. coli cystitis. Other PMH include morbid obesity, sleep apnea, HTN, anticoagulation on warfarin, and CAD (CO in 2008). MD complaint: chest pain Associated symptoms: Reports dyspnea; Deny abdominal pain, fever(s), nausea, palpitations, syncope or vomiting Review of Systems Const: Denies: fever(s) or chills Eyes: Denies: change in vision or blurry vision Card: Reports: chest pain, swelling of feet/ankles and pre-syncope; Denies: palpitations, irregular heart rhythm, edema, lightheadedness, syncope, dyspnea on exertion, orthopnea or acrocyanosis Resp: Reports: dyspnea; Denies: productive cough, non-productive cough, pain on inspiration, change in phlegm color, hemoptysis or chest congestion GI: Denies: abdominal pain, nausea, vomiting, heartburn or diarrhea : Denies: flank pain or dysuria Musc: Denies: neck pain, back pain or joint pain Skin/Breast: Denies: rash Neuro: Denies: headache(s), numbness in extremities, weakness in extremities or sensory changes [facility] ED PFSH: Medical History (Updated 11/26/19 @ 12:48 by MARGARET Allison) Anticoagulated on warfarin Body mass index (BMI) 45.0-49.9, adult Not motivated to lose weight Chronic constipation Controlled with medications followed by her primary care provider COPD (chronic obstructive pulmonary disease) Diagnosed in 2013 and is controlled with medication Depression Diagnosed at the age of 23 and has been on medication since then. She follows up with Dr. Benitez a psychiatrist and as well as therapy in [place]. She currently denies suicidal/homicidal ideation. Essential (primary) hypertension Diagnosed in 2019 and she follows up with Dr. Anderson and cardiology. Gastro-esophageal reflux disease without esophagitis Controlled with medication. H/O deep venous thrombosis Reports having a DVT in 2019 and states her warfarin dose was increased after this. She follows up with Dr. Crespo Obstructive sleep apnea Personal history of pulmonary embolism (~2012) States that she had a PE in 2012 and has been on warfarin since then. She had evaluation performed by Dr. Crespo which was negative TIA (transient ischemic attack) Reports having had a TIA in 2019. Denies any neurological deficits. Followed by her primary care provider. Surgical History Status post conization of cervix Office LEEP procedure performed by Dr. Zelaya in 2005 for MARY-2 on Pap smear. 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 Status post knee surgery 2018-open knee surgery for torn ACL Status post left breast lumpectomy Patient reports having had 3 lumpectomies of her left breast in 1999, 2007 and 2009 for benign lesions. Family History Mother Hypertension Heart disease Grandmother Hypertension maternal and paternal Breast cancer maternal, diagnosed at age 43 Colon cancer maternal, diagnosed at age 63 Father Hypertension Grandfather Hypertension maternal and paternal Heart disease maternal Denies family history of Ovarian cancer Diabetes Uterine cancer Thyroid condition Stroke Social History Smoking and tobacco status: former smoker Second hand smoke exposure: Yes Alcohol intake: current Other details last substance use: last used 2013 per patient Lives independently: Yes Housing: House Marital status: Single Number of children: 0 service: No History of recent travel: No Additional social history: - Tobacco Use: Denies past or present use Drug Use: Medical marijuana use Alcohol Use: Denies Work/Study Status: Disabled due to mental health problems Female Reproductive History: Date of last menstrual period: 10/21/19 Physical Exam Const: COMMON NORMALS: no acute distress, patient oriented x3, no limitations and alert NUTRITIONAL APPEARANCE: obese morbidly obese ORIENTATION/CONSCIOUSNESS: Yes oriented to person, Yes oriented to place and Yes oriented to time HENMT: COMMON NORMALS: normocephalic and atraumatic HEAD & SCALP: normocephalic and atraumatic Chest: COMMONS NORMALS: normal inspection of the chest and normal palpation of entire chest wall Resp: COMMON NORMALS: normal respiratory effort and clear to auscultation bilaterally AUSCULTATION: clear to auscultation bilaterally Cardio: COMMON NORMALS: regular rhythm RATE: tachycardic RHYTHM: regular rhythm GI: COMMON NORMALS: Normal to inspection, nondistended, normoactive bowel sounds present, Soft to palpation, non-tender, No hepatosplenomegaly present and no masses PALPATION: Yes Soft to palpation and Yes No hepatosplenomegaly present : COMMON NORMALS: Yes no CVA tenderness BLADDER/KIDNEY EXAM: Yes no CVA tenderness Back/Pelvis: COMMON NORMALS: no CVA tenderness Extremity: COMMON NORMALS: full ROM, capillary refill normal and no joint enlargement OTHER: pt with mild bilateral non-pitting edema; pt reports swelling to L LE seems to be worse than R however I do not appreciate this; she does have some tenderness to her L calf Neuro: TARIQ COMA SCALE: document GCS findings [place] coma scale eye opening: Spontaneous [place] coma scale verbal response: Orientated [place] coma scale motor response: Obey commands [place] coma scale total score: 15 COMMON NORMALS: patient oriented x3 SENSORIUM/ORIENTATION: Yes alert, Yes oriented to person, Yes oriented to place and Yes oriented to time Skin: COMMON NORMALS: no rashes or lesions noted GENERAL SKIN EXAM: no rashes or lesions noted Course Vital Signs: Vital signs: Vital Signs Temperature 97.8 F 11/26/19 09:04 Pulse Rate 101 H 11/26/19 13:11 Respiratory Rate 16 11/26/19 13:11 Blood Pressure 138/104 11/26/19 13:11 Pulse Oximetry 96 11/26/19 13:11 MDM - Chest Pain MDM Narrative: Medical decision making narrative: Ultrasound of patient's left lower extremity was obtained due to her complaining of pain. This was positive for a DVT to her popliteal and peroneal veins. She is subtherapeutic on her warfarin at 1.4. Due to the symptom of chest pain/SOB CTA was ordered to rule out PE-study was suboptimal but did not show any central embolus. Patient's initial and repeat EKGs showing sinus tachycardia without ischemic changes. Initial troponin was normal along with a negative delta. Patient's urine appears clean. Blood cultures from when she was in the hospital were negative. She has finished her appropriate course of antibiotics for the ESBL E. coli cystitis. She does however maintain an elevated lactate. This could be due to her hyperglycemia which was also noticed during her most recent hospital admission. They had obtained hemoglobin A1c levels while she was inpatient-this came back at over 8. Patient needs to follow-up with her PCP as soon as possible to start medications for new onset diabetes. I spoke to Dr. Augustine about plan for patient who recommends we switch patient's Warfarin to Eliquis. Patient was given dose of SQ Lovenox here. We will have her continue to follow-up with Dr. Crespo and her state historical society director Dr. Anderson as scheduled. Strict return to ED precautions given. Lab Data: Labs: Lab Results 11/26/19 11/26/19 11/26/19 Range/Units 09:15 09:15 09:15 WBC 3.4 L (4.0-10.0) 10^3/ uL RBC 4.30 (4.1-5.3) 10^6/u L Hgb 12.0 (11.5-15.3) g/dL Hct 39.4 (37.0-47.0) % MCV 91.6 (81-99) fL MCH 27.9 L (28.0-34.0) pg MCHC 30.5 (30.0-36.0) g/dL RDW 15.1 (12.1-15.1) % Plt Count 256 (130-400) 10^3/c mm MPV 10.9 H (7.4-10.4) fL Neut % (Auto) 59.0 % Lymph % (Auto) 33.1 % [place] % (Auto) 7.6 % Eos % (Auto) 0.0 % Baso % (Auto) 0.0 % Neut # (Auto) 2.0 (1.8-7.7) 10^3/u L Lymph # (Auto) 1.1 (0.8-4.8) 10^3/u L [place] # (Auto) 0.3 (0.2-0.9) 10^3/u L Eos # (Auto) 0.0 (0.0-0.8) 10^3/u L Baso # (Auto) 0.0 (0.0-0.1) 10^3/u L Nucleated RBC % (a uto) 0 % Nucleated RBCs # 0.0 /100WBC PT (10.5-13.3) SECO NDS INR (0.8-1.2) Sodium 136 (136-145) mmol/L Potassium 4.0 (3.5-5.1) mmol/L Chloride 100 (98-107) mmol/L Carbon Dioxide 21 L (22-29) mmol/L Anion Gap 19.0 (5-19) BUN 8 (6-20) mg/dL Creatinine 1.0 H (0.5-0.9) mg/dL GFR Calculation 60.8 L (90-130) mL/min Glucose 280 H (65-115) mg/dL Calculated Osmolal ity 288 (285-295) mOsm/k g Lactate (0.5-2.2) mmol/L Calcium 9.2 (8.5-10.5) mg/dL Total Bilirubin 0.2 (0.15-1.2) mg/dL AST 17 (0-32) U/L ALT 24 (0-33) U/L Alkaline Phosphata se 105 (35-105) IU/L Troponin T Baselin e 10 (0-10) ng/L Troponin T 120 Min kar[place] (0-10) ng/L Delta Troponin T (0-10) ABS# Total Protein 6.5 L (6.6-8.7) g/dL Albumin 3.7 (3.5-5.2) g/dL Globulin 2.8 (1.3-4.6) g/dL HCG, Qual (Negative) Urine Color (Yellow) Urine Appearance (CLEAR) Urine pH (5-7) Ur Specific Gravit y (1.005-1.030) Urine Protein (Negative) Urine Glucose (UA) (Normal) Urine Ketones (Negative) Urine Blood (Negative) Urine Nitrate (Negative) Urine Bilirubin (NEGATIVE) Urine Urobilinogen (Negative) mg/dL Ur Leukocyte Ana Paula ase (Negative) Urine RBC (0-2) /hpf Urine WBC (0-5) /hpf Ur Squamous Epith Cells (0-5) Urine Bacteria (NONE) 11/26/19 11/26/19 11/26/19 Range/Units 09:15 09:15 09:15 WBC (4.0-10.0) 10^3/ uL RBC (4.1-5.3) 10^6/u L Hgb (11.5-15.3) g/dL Hct (37.0-47.0) % MCV (81-99) fL MCH (28.0-34.0) pg MCHC (30.0-36.0) g/dL RDW (12.1-15.1) % Plt Count (130-400) 10^3/c mm MPV (7.4-10.4) fL Neut % (Auto) % Lymph % (Auto) % [place] % (Auto) % Eos % (Auto) % Baso % (Auto) % Neut # (Auto) (1.8-7.7) 10^3/u L Lymph # (Auto) (0.8-4.8) 10^3/u L [place] # (Auto) (0.2-0.9) 10^3/u L Eos # (Auto) (0.0-0.8) 10^3/u L Baso # (Auto) (0.0-0.1) 10^3/u L Nucleated RBC % (a uto) % Nucleated RBCs # /100WBC PT 18.00 H (10.5-13.3) SECO NDS INR 1.44 H (0.8-1.2) Sodium (136-145) mmol/L Potassium (3.5-5.1) mmol/L Chloride (98-107) mmol/L Carbon Dioxide (22-29) mmol/L Anion Gap (5-19) BUN (6-20) mg/dL Creatinine (0.5-0.9) mg/dL GFR Calculation (90-130) mL/min Glucose (65-115) mg/dL Calculated Osmolal ity (285-295) mOsm/k g Lactate 3.5 H (0.5-2.2) mmol/L Calcium (8.5-10.5) mg/dL Total Bilirubin (0.15-1.2) mg/dL AST (0-32) U/L ALT (0-33) U/L Alkaline Phosphata se (35-105) IU/L Troponin T Baselin e (0-10) ng/L Troponin T 120 Min kar[place] (0-10) ng/L Delta Troponin T (0-10) ABS# Total Protein (6.6-8.7) g/dL Albumin (3.5-5.2) g/dL Globulin (1.3-4.6) g/dL HCG, Qual Negative (Negative) Urine Color (Yellow) Urine Appearance (CLEAR) Urine pH (5-7) Ur Specific Gravit y (1.005-1.030) Urine Protein (Negative) Urine Glucose (UA) (Normal) Urine Ketones (Negative) Urine Blood (Negative) Urine Nitrate (Negative) Urine Bilirubin (NEGATIVE) Urine Urobilinogen (Negative) mg/dL Ur Leukocyte Ana Paula ase (Negative) Urine RBC (0-2) /hpf Urine WBC (0-5) /hpf Ur Squamous Epith Cells (0-5) Urine Bacteria (NONE) 11/26/19 11/26/19 Range/Units 11:25 12:02 WBC (4.0-10.0) 10^3/ uL RBC (4.1-5.3) 10^6/u L Hgb (11.5-15.3) g/dL Hct (37.0-47.0) % MCV (81-99) fL MCH (28.0-34.0) pg MCHC (30.0-36.0) g/dL RDW (12.1-15.1) % Plt Count (130-400) 10^3/c mm MPV (7.4-10.4) fL Neut % (Auto) % Lymph % (Auto) % [place] % (Auto) % Eos % (Auto) % Baso % (Auto) % Neut # (Auto) (1.8-7.7) 10^3/u L Lymph # (Auto) (0.8-4.8) 10^3/u L [place] # (Auto) (0.2-0.9) 10^3/u L Eos # (Auto) (0.0-0.8) 10^3/u L Baso # (Auto) (0.0-0.1) 10^3/u L Nucleated RBC % (a uto) % Nucleated RBCs # /100WBC PT (10.5-13.3) SECO NDS INR (0.8-1.2) Sodium (136-145) mmol/L Potassium (3.5-5.1) mmol/L Chloride (98-107) mmol/L Carbon Dioxide (22-29) mmol/L Anion Gap (5-19) BUN (6-20) mg/dL Creatinine (0.5-0.9) mg/dL GFR Calculation (90-130) mL/min Glucose (65-115) mg/dL Calculated Osmolal ity (285-295) mOsm/k g Lactate (0.5-2.2) mmol/L Calcium (8.5-10.5) mg/dL Total Bilirubin (0.15-1.2) mg/dL AST (0-32) U/L ALT (0-33) U/L Alkaline Phosphata se (35-105) IU/L Troponin T Baselin e (0-10) ng/L Troponin T 120 Min [place] 8.88 (0-10) ng/L Delta Troponin T -1.12 L (0-10) ABS# Total Protein (6.6-8.7) g/dL Albumin (3.5-5.2) g/dL Globulin (1.3-4.6) g/dL HCG, Qual (Negative) Urine Color Straw (Yellow) Urine Appearance Clear (CLEAR) Urine pH 7 (5-7) Ur Specific Gravit y 1.000 L (1.005-1.030) Urine Protein 1+ H (Negative) Urine Glucose (UA) 2+ (Normal) Urine Ketones Negative (Negative) Urine Blood Neg (Negative) Urine Nitrate Negative (Negative) Urine Bilirubin Neg (NEGATIVE) Urine Urobilinogen Norm (Negative) mg/dL Ur Leukocyte Ana Paula ase Negative (Negative) Urine RBC 0-4 H (0-2) /hpf Urine WBC None (0-5) /hpf Ur Squamous Epith Cells 5-10 H (0-5) Urine Bacteria Trace (NONE) Imaging Data^: CXR: Radiologist's impression: [address] [address] XRay Report Signed Patient: Heladio Branch Unit #: [id number] : 1975 Age/Sex: 44 / F ADM Date: 11/26/19 Loc: ER Room/Bed: Attending Dr: Ordering Provider/Ordering MD: Monique Mayo Date of Service: 11/26/19 Procedure(s): XR chest 1V portable 40694 Accession Number(s): [id number] Report Number: [id number] PROCEDURE INFORMATION: Exam: XR Chest, 1 View Exam date and time: 11/26/2019 9:30 AM Age: 44 years old Clinical indication: Other: Chest pain, sides; Prior surgery; Surgery type: Lt breast TECHNIQUE: Imaging protocol: XR of the chest Views: 1 view. COMPARISON: CT angio chest w abd pel w con 11/16/2019 1:08 AM FINDINGS: Lungs: Lungs are well aerated without a focal area of consolidation. Pleural space: Unremarkable. No pleural effusion. No pneumothorax. Heart/Mediastinum: The cardiac silhouette appears enlarged, some of which is magnification related to the AP projection. Bones/joints: Unremarkable. XR/XR chest 1V portable 12490 IMPRESSION: Lungs are well aerated without a focal area of consolidation. Dictated By: Walter Roman MD Signed By: Walter Roman MD Signed Date/Time: 11/26/19948 DD/ 0948 L LE venous US: My impression: Per Jair US tech-DVT noted to popliteal and peroneal veins CTA Chest: Radiologist's impression: [facility] [address] [place] [place] [address] CT Scan Report Signed Patient: Heladio Branch Unit #: [id number] : 1975 Age/Sex: 44 / F ADM Date: 11/26/19 Loc: ER Room/Bed: Attending Dr: Ordering Provider/Ordering MD: Monique Mayo Date of Service: 11/26/19 Procedure(s): CT angio chest PE protcl 19811 Accession Number(s): [id number] Report Number: [id number] WS: [id number] CT CHEST ANGIOGRAPHY WITH REFORMATS HISTORY: chest pain/SOB; DVT in L LE TECHNIQUE: Contiguous axial images are obtained through the chest during arterial injection of intravenous contrast. Images are reconstructed to evaluate the pulmonary arteries. MIP imaging also reviewed. All CT scans at [facility] use at least one of these dose optimization techniques: automated exposure control; mA and/or kV adjustment per patient size (includes targeted exams where dose is matched to clinical indication); or iterative reconstruction. CONTRAST: Omnipaque 350; 200 mL IV. DLP: 3235.07 mGy.cm COMPARISON: 11/16/2019 Despite 3 separate attempts the pulmonary artery opacification is limited. In part this is due to patient's body habitus. There is significant artifact throughout the thorax due to patient body habitus. There is no central pulmonary embolism. Beyond the lobar branches the opacification is suboptimal. There is also motion artifact. Pulmonary artery size is normal. Normal size aorta. Lung volumes are decreased with motion artifact. No pneumonia. No pulmonary infarct, pneumothorax or pleural effusion. No adenopathy. Hepatic steatosis. Liver is enlarged. The entire liver has not been included on this examination. Visualized gallbladder is negative. Increase in thoracic kyphosis. CT/CT angio chest PE protcl 60151 IMPRESSION: 1. Suboptimal opacification of pulmonary arteries due to body habitus. 2. No central pulmonary embolism. 3. No pneumonia or pulmonary infarct. 4. Hepatic steatosis and hepatomegaly. Dictated By: Minna Venegas DO Signed By: Minna Venegas DO Signed Date/Time: 11/26/19 1142 DD/ 1138 Discharge Plan Discharge Patient Disposition: Home, Self-Care Clinical Impression: Subtherapeutic international normalized ratio (INR), Acute hyperglycemia Chest pain Qualifiers: Chest pain type: unspecified Qualified Code(s): R07.9 - Chest pain, unspecified Deep vein thrombosis (DVT) of left lower extremity Qualifiers: Affected thrombotic vein of extremity: popliteal Chronicity: acute Qualified Code(s): I82.432 - Acute embolism and thrombosis of left popliteal vein Condition: Stable Prescriptions: New Eliquis DVT-PE Treat 30D Start 5 mg (74 tabs) tablets,dose pack See Rx Instructions .ROUTE .COMPLEX Qty: 74 RF: 0 No Action aripiprazole [Abilify] 2 mg tablet 4 mg PO BEDTIME RF: 0 albuterol sulfate [Ventolin HFA] 90 mcg/actuation HFA aerosol inhaler 2 puff INHALATION QID PRN (Reason: Shortness Of Breath) RF: 0 acetaminophen [Tylenol 8 Hour] 650 mg tablet extended release 650 mg PO Q8H PRN (Reason: Mild Pain (Scale Score 1-4)) RF: 0 synxqxumubty-Xp-lxff-minerals 18-0.4 mg tablet 1 tab PO DAILY RF: 0 ferrous sulfate 325 mg (65 mg iron) tablet 325 mg PO BID RF: 0 omeprazole 20 mg capsule,delayed release(DR/EC) 20 mg PO DAILY 30 Days Qty: 30 RF: 3 amlodipine 5 mg tablet 5 mg PO DAILY 30 Days Qty: 30 RF: 3 chlorthalidone 25 mg tablet 25 mg PO DAILY 30 Days Qty: 30 RF: 4 potassium chloride 10 mEq capsule, extended release 10 meq PO DAILY 30 Days Qty: 30 RF: 4 quetiapine 300 mg tablet 300 mg PO BEDTIME RF: 0 silver nitrate applicators 75-25 % stick 1 applic TOPICAL ONCE Qty: 1 RF: 0 nystatin 100,000 unit/gram cream 1 applic TOPICAL DAILY Qty: 15 RF: 0 metoprolol tartrate 50 mg tablet 100 mg PO BID RF: 0 ibuprofen 200 mg capsule 400 mg PO Q6H PRN (Reason: Mild Pain (Scale Score 1-4)) RF: 0 isosorbide mononitrate 20 mg tablet 20 mg PO BID Qty: 120 RF: 2 alprazolam [Xanax] 2 mg Tablet 2 mg PO TID RF: 0 desvenlafaxine 100 mg Tablet Extended Release 24 Hr 100 mg PO DAILY RF: 0 warfarin 2 mg tablet 4 mg PO DAILY Qty: 65 RF: 0 cyclobenzaprine 10 mg Tablet 10 mg PO TID PRN (Reason: Muscle Spasm) RF: 0 desipramine 75 mg Tablet 150 mg PO DAILY RF: 0 cholecalciferol (vitamin D3) 1,250 mcg (50,000 unit) capsule 1,250 mcg PO Q7D RF: 0 Discharge Orders: Discharge Order (Routine); Ordered 11/26/19 Ordered By: Monique Mayo Referrals: Batterton,Christa, RISK MANAGEMENT INTERN [Primary Care Provider] - Activity Restrictions/Additional Instructions: STOP TAKING YOUR WARFARIN IMMEDIATELY AND BEGIN TAKING THE ELIQUIS PRESCRIBED. You need to contact your primary care provider as soon as possible and begin treatment for your diabetes. Please follow up with Dr. Crespo and Dr. Anderson as scheduled. You may return to the ED for any concerning symptoms. Discharge Date/Time: 11/26/19 13:14 Coding Level of Care Code ED Ruby On Rails Developer for Chg Fwd Exam Comprehensive Documented by User: Waldemar Augustine DO 11/27/19 10:23 HPI - Chest Pain General: Chief Complaint: Chest Pain Stated Complaint: CHEST PAIN Time Seen by Provider: 11/26/19 09:07 PFS ED PFSH: Medical History (Updated 11/26/19 @ 12:48 by MARGARET Allison) Anticoagulated on warfarin Body mass index (BMI) 45.0-49.9, adult Not motivated to lose weight Chronic constipation Controlled with medications followed by her primary care provider COPD (chronic obstructive pulmonary disease) Diagnosed in 2013 and is controlled with medication Depression Diagnosed at the age of 23 and has been on medication since then. She follows up with Dr. Benitez a psychiatrist and as well as therapy in [place]. She currently denies suicidal/homicidal ideation. Essential (primary) hypertension Diagnosed in 2019 and she follows up with Dr. Anderson and cardiology. Gastro-esophageal reflux disease without esophagitis Controlled with medication. H/O deep venous thrombosis Reports having a DVT in 2019 and states her warfarin dose was increased after this. She follows up with Dr. Crespo Obstructive sleep apnea Personal history of pulmonary embolism (~2012) States that she had a PE in 2012 and has been on warfarin since then. She had evaluation performed by Dr. Crespo which was negative TIA (transient ischemic attack) Reports having had a TIA in 2019. Denies any neurological deficits. Followed by her primary care provider. Surgical History Status post conization of cervix Office LEEP procedure performed by Dr. Zelaya in 2005 for MARY-2 on Pap smear. 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 Status post knee surgery 2018-open knee surgery for torn ACL Status post left breast lumpectomy Patient reports having had 3 lumpectomies of her left breast in 1999, 2007 and 2009 for benign lesions. Family History Mother Hypertension Heart disease Grandmother Hypertension maternal and paternal Breast cancer maternal, diagnosed at age 43 Colon cancer maternal, diagnosed at age 63 Father Hypertension Grandfather Hypertension maternal and paternal Heart disease maternal Denies family history of Ovarian cancer Diabetes Uterine cancer Thyroid condition Stroke Social History Smoking and tobacco status: former smoker Second hand smoke exposure: Yes Alcohol intake: current Other details last substance use: last used 2013 per patient Lives independently: Yes Housing: House Marital status: Single Number of children: 0 service: No History of recent travel: No Additional social history: - Tobacco Use: Denies past or present use Drug Use: Medical marijuana use Alcohol Use: Denies Work/Study Status: Disabled due to mental health problems Course Vital Signs: Vital signs: Vital Signs Temperature 97.8 F 11/26/19 09:04 Pulse Rate 101 H 11/26/19 13:11 Respiratory Rate 16 11/26/19 13:11 Blood Pressure 138/104 11/26/19 13:11 Pulse Oximetry 96 11/26/19 13:11 MDM - Chest Pain MDM Narrative: Medical decision making narrative: Care turned over Dr. Lopez at change of shift Lab Data: Labs: Lab Results 11/26/19 11/26/19 11/26/19 Range/Units 09:15 09:15 09:15 WBC 3.4 L (4.0-10.0) 10^3/ uL RBC 4.30 (4.1-5.3) 10^6/u L Hgb 12.0 (11.5-15.3) g/dL Hct 39.4 (37.0-47.0) % MCV 91.6 (81-99) fL MCH 27.9 L (28.0-34.0) pg MCHC 30.5 (30.0-36.0) g/dL RDW 15.1 (12.1-15.1) % Plt Count 256 (130-400) 10^3/c mm MPV 10.9 H (7.4-10.4) fL Neut % (Auto) 59.0 % Lymph % (Auto) 33.1 % [place] % (Auto) 7.6 % Eos % (Auto) 0.0 % Baso % (Auto) 0.0 % Neut # (Auto) 2.0 (1.8-7.7) 10^3/u L Lymph # (Auto) 1.1 (0.8-4.8) 10^3/u L [place] # (Auto) 0.3 (0.2-0.9) 10^3/u L Eos # (Auto) 0.0 (0.0-0.8) 10^3/u L Baso # (Auto) 0.0 (0.0-0.1) 10^3/u L Nucleated RBC % (a uto) 0 % Nucleated RBCs # 0.0 /100WBC PT (10.5-13.3) SECO NDS INR (0.8-1.2) Sodium 136 (136-145) mmol/L Potassium 4.0 (3.5-5.1) mmol/L Chloride 100 (98-107) mmol/L Carbon Dioxide 21 L (22-29) mmol/L Anion Gap 19.0 (5-19) BUN 8 (6-20) mg/dL Creatinine 1.0 H (0.5-0.9) mg/dL GFR Calculation 60.8 L (90-130) mL/min Glucose 280 H (65-115) mg/dL Calculated Osmolal ity 288 (285-295) mOsm/k g Lactate (0.5-2.2) mmol/L Calcium 9.2 (8.5-10.5) mg/dL Total Bilirubin 0.2 (0.15-1.2) mg/dL AST 17 (0-32) U/L ALT 24 (0-33) U/L Alkaline Phosphata se 105 (35-105) IU/L Troponin T Baselin e 10 (0-10) ng/L Troponin T 120 Min [place] (0-10) ng/L Delta Troponin T (0-10) ABS# Total Protein 6.5 L (6.6-8.7) g/dL Albumin 3.7 (3.5-5.2) g/dL Globulin 2.8 (1.3-4.6) g/dL HCG, Qual (Negative) Urine Color (Yellow) Urine Appearance (CLEAR) Urine pH (5-7) Ur Specific Gravit y (1.005-1.030) Urine Protein (Negative) Urine Glucose (UA) (Normal) Urine Ketones (Negative) Urine Blood (Negative) Urine Nitrate (Negative) Urine Bilirubin (NEGATIVE) Urine Urobilinogen (Negative) mg/dL Ur Leukocyte Ana Paula ase (Negative) Urine RBC (0-2) /hpf Urine WBC (0-5) /hpf Ur Squamous Epith Cells (0-5) Urine Bacteria (NONE) 11/26/19 11/26/19 11/26/19 Range/Units 09:15 09:15 09:15 WBC (4.0-10.0) 10^3/ uL RBC (4.1-5.3) 10^6/u L Hgb (11.5-15.3) g/dL Hct (37.0-47.0) % MCV (81-99) fL MCH (28.0-34.0) pg MCHC (30.0-36.0) g/dL RDW (12.1-15.1) % Plt Count (130-400) 10^3/c mm MPV (7.4-10.4) fL Neut % (Auto) % Lymph % (Auto) % [place] % (Auto) % Eos % (Auto) % Baso % (Auto) % Neut # (Auto) (1.8-7.7) 10^3/u L Lymph # (Auto) (0.8-4.8) 10^3/u L [place] # (Auto) (0.2-0.9) 10^3/u L Eos # (Auto) (0.0-0.8) 10^3/u L Baso # (Auto) (0.0-0.1) 10^3/u L Nucleated RBC % (a uto) % Nucleated RBCs # /100WBC PT 18.00 H (10.5-13.3) SECO NDS INR 1.44 H (0.8-1.2) Sodium (136-145) mmol/L Potassium (3.5-5.1) mmol/L Chloride (98-107) mmol/L Carbon Dioxide (22-29) mmol/L Anion Gap (5-19) BUN (6-20) mg/dL Creatinine (0.5-0.9) mg/dL GFR Calculation (90-130) mL/min Glucose (65-115) mg/dL Calculated Osmolal ity (285-295) mOsm/k g Lactate 3.5 H (0.5-2.2) mmol/L Calcium (8.5-10.5) mg/dL Total Bilirubin (0.15-1.2) mg/dL AST (0-32) U/L ALT (0-33) U/L Alkaline Phosphata se (35-105) IU/L Troponin T Baselin e (0-10) ng/L Troponin T 120 [place] (0-10) ng/L Delta Troponin T (0-10) ABS# Total Protein (6.6-8.7) g/dL Albumin (3.5-5.2) g/dL Globulin (1.3-4.6) g/dL HCG, Qual Negative (Negative) Urine Color (Yellow) Urine Appearance (CLEAR) Urine pH (5-7) Ur Specific Gravit y (1.005-1.030) Urine Protein (Negative) Urine Glucose (UA) (Normal) Urine Ketones (Negative) Urine Blood (Negative) Urine Nitrate (Negative) Urine Bilirubin (NEGATIVE) Urine Urobilinogen (Negative) mg/dL Ur Leukocyte Ana Paula ase (Negative) Urine RBC (0-2) /hpf Urine WBC (0-5) /hpf Ur Squamous Epith Cells (0-5) Urine Bacteria (NONE) 11/26/19 11/26/19 Range/Units 11:25 12:02 WBC (4.0-10.0) 10^3/ uL RBC (4.1-5.3) 10^6/u L Hgb (11.5-15.3) g/dL Hct (37.0-47.0) % MCV (81-99) fL MCH (28.0-34.0) pg MCHC (30.0-36.0) g/dL RDW (12.1-15.1) % Plt Count (130-400) 10^3/c mm MPV (7.4-10.4) fL Neut % (Auto) % Lymph % (Auto) % [place] % (Auto) % Eos % (Auto) % Baso % (Auto) % Neut # (Auto) (1.8-7.7) 10^3/u L Lymph # (Auto) (0.8-4.8) 10^3/u L [place] # (Auto) (0.2-0.9) 10^3/u L Eos # (Auto) (0.0-0.8) 10^3/u L Baso # (Auto) (0.0-0.1) 10^3/u L Nucleated RBC % (a uto) % Nucleated RBCs # /100WBC PT (10.5-13.3) SECO NDS INR (0.8-1.2) Sodium (136-145) mmol/L Potassium (3.5-5.1) mmol/L Chloride (98-107) mmol/L Carbon Dioxide (22-29) mmol/L Anion Gap (5-19) BUN (6-20) mg/dL Creatinine (0.5-0.9) mg/dL GFR Calculation (90-130) mL/min Glucose (65-115) mg/dL Calculated Osmolal ity (285-295) mOsm/k g Lactate (0.5-2.2) mmol/L Calcium (8.5-10.5) mg/dL Total Bilirubin (0.15-1.2) mg/dL AST (0-32) U/L ALT (0-33) U/L Alkaline Phosphata se (35-105) IU/L Troponin T Baselin e (0-10) ng/L Troponin T 120 [place] 8.88 (0-10) ng/L Delta Troponin T -1.12 L (0-10) ABS# Total Protein (6.6-8.7) g/dL Albumin (3.5-5.2) g/dL Globulin (1.3-4.6) g/dL HCG, Qual (Negative) Urine Color Straw (Yellow) Urine Appearance Clear (CLEAR) Urine pH 7 (5-7) Ur Specific Gravit y 1.000 L (1.005-1.030) Urine Protein 1+ H (Negative) Urine Glucose (UA) 2+ (Normal) Urine Ketones Negative (Negative) Urine Blood Neg (Negative) Urine Nitrate Negative (Negative) Urine Bilirubin Neg (NEGATIVE) Urine Urobilinogen Norm (Negative) mg/dL Ur Leukocyte Ana Paula ase Negative (Negative) Urine RBC 0-4 H (0-2) /hpf Urine WBC None (0-5) /hpf Ur Squamous Epith Cells 5-10 H (0-5) Urine Bacteria Trace (NONE) Discharge Plan Discharge Patient Disposition: Home, Self-Care Clinical Impression: Subtherapeutic international normalized ratio (INR), Acute hyperglycemia Chest pain Qualifiers: Chest pain type: unspecified Qualified Code(s): R07.9 - Chest pain, unspecified Deep vein thrombosis (DVT) of left lower extremity Qualifiers: Affected thrombotic vein of extremity: popliteal Chronicity: acute Qualified Code(s): I82.432 - Acute embolism and thrombosis of left popliteal vein Condition: Stable Prescriptions: [place] DVT-PE Treat 30D Start 5 mg (74 tabs) tablets,dose pack See Rx Instructions .ROUTE .COMPLEX Qty: 74 RF: 0 No Action aripiprazole [Abilify] 2 mg tablet 4 mg PO BEDTIME RF: 0 albuterol sulfate [Ventolin HFA] 90 mcg/actuation HFA aerosol inhaler 2 puff INHALATION QID PRN (Reason: Shortness Of Breath) RF: 0 acetaminophen [Tylenol 8 Hour] 650 mg tablet extended release 650 mg PO Q8H PRN (Reason: Mild Pain (Scale Score 1-4)) RF: 0 tibmvgohyayq-Hh-rqlk-minerals 18-0.4 mg tablet 1 tab PO DAILY RF: 0 ferrous sulfate 325 mg (65 mg iron) tablet 325 mg PO BID RF: 0 omeprazole 20 mg capsule,delayed release(DR/EC) 20 mg PO DAILY 30 Days Qty: 30 RF: 3 amlodipine 5 mg tablet 5 mg PO DAILY 30 Days Qty: 30 RF: 3 chlorthalidone 25 mg tablet 25 mg PO DAILY 30 Days Qty: 30 RF: 4 potassium chloride 10 mEq capsule, extended release 10 meq PO DAILY 30 Days Qty: 30 RF: 4 quetiapine 300 mg tablet 300 mg PO BEDTIME RF: 0 silver nitrate applicators 75-25 % stick 1 applic TOPICAL ONCE Qty: 1 RF: 0 nystatin 100,000 unit/gram cream 1 applic TOPICAL DAILY Qty: 15 RF: 0 metoprolol tartrate 50 mg tablet 100 mg PO BID RF: 0 ibuprofen 200 mg capsule 400 mg PO Q6H PRN (Reason: Mild Pain (Scale Score 1-4)) RF: 0 isosorbide mononitrate 20 mg tablet 20 mg PO BID Qty: 120 RF: 2 alprazolam [Xanax] 2 mg Tablet 2 mg PO TID RF: 0 desvenlafaxine 100 mg Tablet Extended Release 24 Hr 100 mg PO DAILY RF: 0 warfarin 2 mg tablet 4 mg PO DAILY Qty: 65 RF: 0 cyclobenzaprine 10 mg Tablet 10 mg PO TID PRN (Reason: Muscle Spasm) RF: 0 desipramine 75 mg Tablet 150 mg PO DAILY RF: 0 cholecalciferol (vitamin D3) 1,250 mcg (50,000 unit) capsule 1,250 mcg PO Q7D RF: 0 Discharge Orders: Discharge Order (Routine); Ordered 11/26/19 Ordered By: Monique Mayo Referrals: Christa Chew APN [Primary Care Provider] - Activity Restrictions/Additional Instructions: STOP TAKING YOUR WARFARIN IMMEDIATELY AND BEGIN TAKING THE ELIQUIS PRESCRIBED. You need to contact your primary care provider as soon as possible and begin treatment for your diabetes. Please follow up with Dr. Crespo and Dr. Anderson as scheduled. You may return to the ED for any concerning symptoms. Discharge Date/Time: 11/26/19 13:14 Coding Level of Care Code ED Ruby On Rails Developer for Marci Fwmaria ines Exam Comprehensive
[2019-11-26 09:22] LABS: Hematocrit 39.4 % (37.0-47.0); Lymphocytes # 1.1 10^3/uL (0.8-4.8); Lymphocytes % 33.1 %; Mean Corpuscular HGB Conc 30.5 g/dL (30.0-36.0); Mean Corpuscular Hemoglobin 27.9 pg (28.0-34.0); Mean Corpuscular Volume 91.6 fL (81-99); Mean Platelet Volume 10.9 fL (7.4-10.4); Monocytes # 0.3 10^3/uL (0.2-0.9); Monocytes % 7.6 %; Nucleated Red Blood Cells % 0 %; Platelet Count 256 10^3/cmm (130-400); Red Cell Distribution Width 15.1 % (12.1-15.1); White Blood Count 3.4 10^3/uL (4.0-10.0)
--- NOTE | 2019-11-26 09:23 | USCV_ITS ---
Branch Heladio Age: 44 Gender: F : 1975 Exam Date: 11/26/2019 09:50 Ordering Phys: Monique Mayo Technologist: Tyrone Kumar Exam Location: [facility] [place]_ Indication: PAIN/SWELLING PROCEDURES: Venous duplex imaging was performed in only the left lower extremity. The following venous structures were evaluated: common femoral vein, profunda vein, proximal portion of the greater saphenous vein, superficial femoral vein, and the popliteal vein. In addition, the posterior tibial and peroneal trunk were evaluated. Serial compression, augmentation maneuvers, and spectral Doppler flow evaluation were performed. FINDINGS: Evidence of acute occlusive deep vein thrombosis in the left popliteal vein with abnormal flow dynamics. Evidence of acute occlusive deep vein thrombosis in the left peroneal vein with abnormal flow dynamics. Remaining veins are negative. CONCLUSIONS Acute DVT left popliteal and peroneal veins. Dr. Minna Venegas DO (Electronically Signed) Final Date: 26 November 2019 11:13 S
[2019-11-26 09:38] LABS: HCG, Serum Qual Negative (Negative)
[2019-11-26 09:42] LABS: INR 1.44 (0.8-1.2)
[2019-11-26 09:45] LABS: Alanine Aminotransferase 24 U/L (0-33); Albumin Level 3.7 g/dL (3.5-5.2); Alkaline Phosphatase 105 IU/L (35-105); Aspartate Amino Transferase 17 U/L (0-32); Blood Urea Nitrogen 8 mg/dL (6-20); Calcium 9.2 mg/dL (8.5-10.5); Carbon Dioxide 21 mmol/L (22-29); Chloride 100 mmol/L (98-107); Globulin 2.8 g/dL (1.3-4.6); Glomerular Filtration Rate 60.8 mL/min (90-130); Glucose 280 mg/dL (65-115); Osmolality Calculated 288 mOsm/kg (285-295); Sodium 136 mmol/L (136-145); Total Bilirubin 0.2 mg/dL (0.15-1.2); Total Protein 6.5 g/dL (6.6-8.7)
[2019-11-26 09:50] LABS: Troponin(5th) Baseline 10 ng/L (0-10)
--- NOTE | 2019-11-26 10:05 | PC.NURSE ---
Patient assisted to bedside commode.
--- NOTE | 2019-11-26 10:30 | CT_ITS ---
WS: [id number] CT CHEST ANGIOGRAPHY WITH REFORMATS HISTORY: chest pain/SOB; DVT in L LE TECHNIQUE: Contiguous axial images are obtained through the chest during arterial injection of intrav enous contrast. Images are reconstructed to evaluate the pulmonary arteries. MIP imaging also reviewe d. All CT scans at [facility] use at least one of these dose optimization techniques: aut omated exposure control; mA and/or kV adjustment per patient size (includes targeted exams where dose is matched to clinical indication); or iterative reconstruction. CONTRAST: Omnipaque 350; 200 mL IV. DLP: 3235.07 mGy.cm COMPARISON: 11/16/2019 Despite 3 separate attempts the pulmonary artery opacification is limited. In part this is due to pat ient's body habitus. There is significant artifact throughout the thorax due to patient body habitus. There is no central pulmonary embolism. Beyond the lobar branches the opacification is suboptimal. T here is also motion artifact. Pulmonary artery size is normal. Normal size aorta. Lung volumes are de creased with motion artifact. No pneumonia. No pulmonary infarct, pneumothorax or pleural effusion. N o adenopathy. Hepatic steatosis. Liver is enlarged. The entire liver has not been included on this examination. Vis ualized gallbladder is negative. Increase in thoracic kyphosis. CT/CT angio chest PE protcl [id number] IMPRESSION: 1. Suboptimal opacification of pulmonary arteries due to body habitus. 2. No central pulmonary embolism. 3. No pneumonia or pulmonary infarct. 4. Hepatic steatosis and hepatomegaly.
[2019-11-26] MEDS: iohexol 350 mg/mL 100 mL Btl IV ×2 (11:11→11:12)
[2019-11-26 11:31] LABS: Lactate (Lactic Acid level) 3.5 mmol/L (0.5-2.2)
[2019-11-26 11:47] LABS: Troponin 5 2HR 8.88 ng/L (0-10)
[2019-11-26 11:56] LABS: Troponin 5 2HR Delta -1.12 ABS# (0-10)
[2019-11-26 12:04] VITALS: BP 142/88; PULSE 101; RESP 16; O2SAT 96
[2019-11-26] MEDS: ondansetron 2 mg/ML SDV 2 mL 4 MG IVP (12:15)
[2019-11-26 12:27] LABS: Glucose Urine UA 2+ (Normal); Protein Urine 1+ (Negative); Urine Appearance Clear (CLEAR); Urine Color Straw (Yellow); pH Urine 7 (5-7)
[2019-11-26 12:28] LABS: Add Urine Microscopic? YES; Bilirubin Urine Neg (NEGATIVE); Blood Urine Neg (Negative); Ketones Urine Negative (Negative); Leukocyte Esterase Urine Negative (Negative); Nitrate Urine Negative (Negative); Urobilinogen Urine Norm (Negative)
[2019-11-26 12:33] LABS: RBC Urine 0-4 /hpf (0-2)
[2019-11-26 12:34] LABS: Add Urine Culture? No; Bacteria Urine TRACE
[2019-11-26] MEDS: enoxaparin 120 mg/0.8 mL Syringe SUBCUT (13:09)
[2019-11-26 13:11] VITALS: BP 138/104; PULSE 101; RESP 16; O2SAT 96
--- NOTE | 2019-11-26 15:08 | ECG_ITS ---
Measurements Intervals [place] Rate: 106 P: 46 NM: 184 QRS: 39 QRSD: 104 T: 61 QT: 336 QTc: 447 SINUS TACHYCARDIA ABNORMAL RHYTHM ECG Compared to ECG 11/16/2019 06:27:15 ST (T wave) deviation no longer present Electronically Signed On 11-26-2019 19:37:08 CDT by Kathy Anderson M.D. [email or web address]
== END 2019-11-26 13:14 | disposition home or self-care (01) ==
PROVIDERS: Emergency Provider Physician Assistant; PCP Nurse Practitioner Family
DX: I82.432 Acute embolism and thrombosis of left popliteal vein (principal); R07.9 Chest pain, unspecified; R73.9 Hyperglycemia, unspecified; Z79.01 Long term (current) use of anticoagulants; J44.9 Chronic obstructive pulmonary disease, unspecified; I10 Essential (primary) hypertension; Z86.73 Personal history of transient ischemic attack (TIA), and cerebral infarction without residual deficits; Z87.891 Personal history of nicotine dependence
CPT/HCPCS: 12345; 36415; 71045; 71275; 80053; 81001; 83605; 84484; 84703; 85025; 85610; 93005; 93971; 96372; 96374; 96375; 99283; 99284; J1650; J2405; Q9967

== ENCOUNTER 2019-12-23 20:51 | Emergency (ER) | payer MEDICARE, MEDICAID, SELFPAY ==
[2019-12-23 20:54] VITALS: BP 160/83; PULSE 118; RESP 18; TEMP 36.8; O2SAT 97; BMI 59.7
--- NOTE | 2019-12-23 20:56 | XR_ITS ---
WS: [id number] LEFT ANKLE: 3 VIEW(S) TECHNIQUE: AP, oblique(s) and lateral. HISTORY: fall COMPARISON: 03/15/2018 Normal anatomic alignment with no fracture or dislocation. No joint effusion or widening of the ankle mortise. No significant degenerative changes at the joint spaces. Diffuse soft tissue edema. XR/XR ankle LT min 3V* [id number] IMPRESSION: Diffuse soft tissue edema. No fracture.
--- NOTE | 2019-12-23 20:56 | XR_ITS ---
WS: [id number] LEFT KNEE: 3 VIEW(S) TECHNIQUE: AP, oblique(s) and lateral. HISTORY: fall COMPARISON: 11/24/2013 Prior ACL repair. No fracture or dislocation. No joint space narrowing or osteophytes. No joint effusion. Diffuse soft tissue edema. XR/XR knee LT 3V* [id number] IMPRESSION: Prior ACL repair. No fracture. Soft tissue edema around the knee.
--- NOTE | 2019-12-23 20:56 | XR_ITS ---
WS: [id number] PELVIS AND LEFT HIP HISTORY: fall COMPARISON: 11/15/2009 Limited evaluation due to body habitus. LEFT hip: No acute fracture or dislocation. Mild narrowing of the hip joint. No pelvic abnormalities. XR/XR hip LT 2-3V wo/w pel* [id number] IMPRESSION: 1. Extremely limited evaluation of the pelvis and LEFT hip due to body habitus and technique. 2. No hip fracture identified. If pain continues consider CT evaluation.
--- NOTE | 2019-12-23 20:58 | ED_ITS ---
HPI - Fall General: Chief Complaint: Fall Stated Complaint: FALL Time Seen by Provider: 12/23/19 20:54 Source: patient and EMS Mode of arrival: EMS Limitations: no limitations History of Present Illness: HPI Narrative: 44-year-old female who states her [place] she was down on the floor and she is trying not to step on it and slipped. States that she fell and twisted her left ankle and knee. States had left ankle knee and hip pain since the fall. States the pain in the ankle is worse and rates it a 7 out of 10. She states she was unable to bear weight. She denies any other injuries and denies hitting her head. complaint: fall Onset (ago): hour(s) Fall from: standing Fall witnessed: no Place fall occurred: home Loss of consciousness: None Symptoms prior to fall: none Associated symptoms-after fall: Denies abdominal pain, chest pain or headache(s) Review of Systems Const: Denies: fever(s), chills, body aches or change in appetite Eyes: Denies: blurry vision or eye discomfort ENMT: Denies: throat pain or dental pain Card: Denies: chest pain Resp: Denies: dyspnea GI: Denies: abdominal pain, nausea, vomiting or diarrhea : Denies: dysuria Musc: Reports: joint pain Skin/Breast: Denies: rash Neuro: Denies: headache(s) Psych: Denies: depression Ander/Lymph: Denies: easy bruising All/Imm: Denies: urticaria PFSH ED PFSH: Medical History (Updated 12/23/19 @ 22:22 by Milagros Pat MD) Anticoagulated on warfarin Body mass index (BMI) 45.0-49.9, adult Not motivated to lose weight Chronic constipation Controlled with medications followed by her primary care provider COPD (chronic obstructive pulmonary disease) Diagnosed in 2013 and is controlled with medication Depression Diagnosed at the age of 23 and has been on medication since then. She follows up with Dr. Benitez a psychiatrist and as well as therapy in [place]. She currently denies suicidal/homicidal ideation. Essential (primary) hypertension Diagnosed in 2019 and she follows up with Dr. Anderson and cardiology. Gastro-esophageal reflux disease without esophagitis Controlled with medication. H/O deep venous thrombosis Reports having a DVT in 2019 and states her warfarin dose was increased after this. She follows up with Dr. Crespo Obstructive sleep apnea Personal history of pulmonary embolism (~2012) States that she had a PE in 2012 and has been on warfarin since then. She had evaluation performed by Dr. Crespo which was negative TIA (transient ischemic attack) Reports having had a TIA in 2019. Denies any neurological deficits. Followed by her primary care provider. Surgical History Status post conization of cervix Office LEEP procedure performed by Dr. Zelaya in 2005 for MARY-2 on Pap smear. 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 Status post knee surgery 2018-open knee surgery for torn ACL Status post left breast lumpectomy Patient reports having had 3 lumpectomies of her left breast in 1999, 2007 and 2009 for benign lesions. Family History Mother Hypertension Heart disease Grandmother Hypertension maternal and paternal Breast cancer maternal, diagnosed at age 43 Colon cancer maternal, diagnosed at age 63 Father Hypertension Grandfather Hypertension maternal and paternal Heart disease maternal Denies family history of Ovarian cancer Diabetes Uterine cancer Thyroid condition Stroke Social History Smoking and tobacco status: former smoker Second hand smoke exposure: Yes Alcohol intake: current Other details last substance use: last used 2013 per patient Lives independently: Yes Housing: House Marital status: Single Number of children: 0 service: No History of recent travel: No Additional social history: - Tobacco Use: Denies past or present use Drug Use: Medical marijuana use Alcohol Use: Denies Work/Study Status: Disabled due to mental health problems Female Reproductive History: Date of last menstrual period: 10/21/19 Physical Exam Const: COMMON NORMALS: no acute distress, patient oriented x3 and healthy appearing HENMT: COMMON NORMALS: normocephalic and atraumatic HEAD & SCALP: normocephalic and atraumatic Eye: COMMON NORMALS: Equal, round and reactive pupils present and EOMs intact bilaterally PUPIL: Yes Equal, round and reactive pupils present Neck/C-Spine: COMMON NORMALS: full ROM and supple Chest: COMMONS NORMALS: normal inspection of the chest and normal palpation of entire chest wall Resp: COMMON NORMALS: normal respiratory effort, No retractions, No use of accessory muscles and clear to auscultation bilaterally AUSCULTATION: clear to auscultation bilaterally Cardio: COMMON NORMALS: regular rate, regular rhythm and No murmurs present (Cardio) RATE: regular rate RHYTHM: regular rhythm GI: COMMON NORMALS: Normal to inspection, nondistended, normoactive bowel sounds present, Soft to palpation, non-tender and no masses PALPATION: Yes Soft to palpation Extremity: COMMON NORMALS: normal to inspection NARRATIVE EXTREMITY EXAM: Tenderness along left ankle. Mild tenderness to left knee and hip. Pain with range of motion. Neuro: COMMON NORMALS: patient oriented x3, moves all extremities and no focal motor deficits Psych: COMMON NORMALS: mental status grossly normal, Normal thought process present and cooperative THOUGHT PROCESS: Normal thought process present Skin: COMMON NORMALS: no rashes or lesions noted and no wounds GENERAL SKIN EXAM: no rashes or lesions noted Course Vital Signs: Vital signs: Vital Signs Temperature 98.2 F 12/23/19 20:54 Pulse Rate 115 H 12/23/19 20:59 Respiratory Rate 20 H 12/23/19 21:31 Blood Pressure 144/77 12/23/19 20:59 Pulse Oximetry 97 12/23/19 21:31 MDM - Fall MDM Narrative: Medical decision making narrative: Patient presents here with an ankle sprain from a fall. Patient has swelling and tenderness. She is to be nonweightbearing and we will place her in a splint. Patient also given crutches and is to follow-up with orthopedics in 2 to 4 days. She is to return if worsening. She understands and agrees to plan. Imaging Data^: xr l hip: Attestation: I personally reviewed and interpreted this imaging study as follows: My impression: no acute abnormality xr l ankle: My impression: swelling likley sprain no fx xr l knee: My impression: no acute anbormality Discharge Plan Discharge Patient Disposition: Home, Self-Care Clinical Impression: Left ankle sprain Qualifiers: Encounter type: initial encounter Condition: Stable Prescriptions: [place] 5-325 mg tablet 1 tab PO Q6H PRN (Reason: pain) Qty: 14 RF: 0 No Action aripiprazole [Abilify] 2 mg tablet 4 mg PO BEDTIME RF: 0 albuterol sulfate [Ventolin HFA] 90 mcg/actuation HFA aerosol inhaler 2 puff INHALATION QID PRN (Reason: Shortness Of Breath) RF: 0 acetaminophen [Tylenol 8 Hour] 650 mg tablet extended release 650 mg PO Q8H PRN (Reason: Mild Pain (Scale Score 1-4)) RF: 0 psrlazbycijc-Bu-plmh-minerals 18-0.4 mg tablet 1 tab PO DAILY RF: 0 ferrous sulfate 325 mg (65 mg iron) tablet 325 mg PO BID RF: 0 omeprazole 20 mg capsule,delayed release(DR/EC) 20 mg PO DAILY 30 Days Qty: 30 RF: 3 amlodipine 5 mg tablet 5 mg PO DAILY 30 Days Qty: 30 RF: 3 chlorthalidone 25 mg tablet 25 mg PO DAILY 30 Days Qty: 30 RF: 4 potassium chloride 10 mEq capsule, extended release 10 meq PO DAILY 30 Days Qty: 30 RF: 4 quetiapine 300 mg tablet 300 mg PO BEDTIME RF: 0 silver nitrate applicators 75-25 % stick 1 applic TOPICAL ONCE Qty: 1 RF: 0 metformin 500 mg tablet 500 mg PO DAILY RF: 0 nystatin 100,000 unit/gram cream 1 applic TOPICAL DAILY Qty: 15 RF: 0 metoprolol tartrate 50 mg tablet 100 mg PO BID RF: 0 ibuprofen 200 mg capsule 400 mg PO Q6H PRN (Reason: Mild Pain (Scale Score 1-4)) RF: 0 isosorbide mononitrate 20 mg tablet 20 mg PO BID Qty: 120 RF: 2 alprazolam [Xanax] 2 mg Tablet 2 mg PO TID RF: 0 desvenlafaxine 100 mg Tablet Extended Release 24 Hr 100 mg PO DAILY RF: 0 warfarin 2 mg tablet 4 mg PO DAILY Qty: 65 RF: 0 cyclobenzaprine 10 mg Tablet 10 mg PO TID PRN (Reason: Muscle Spasm) RF: 0 desipramine 75 mg Tablet 150 mg PO DAILY RF: 0 cholecalciferol (vitamin D3) 1,250 mcg (50,000 unit) capsule 1,250 mcg PO Q7D RF: 0 Eliquis DVT-PE Treat 30D Start 5 mg (74 tabs) tablets,dose pack See Rx Instructions .ROUTE .COMPLEX Qty: 74 RF: 0 Discharge Orders: Discharge Order (Routine); Ordered 12/23/19 Ordered By: Milagros Pat Referrals: Christa Chew APN [Primary Care Provider] - Sharif Negron MD [Physician] - 1-3 days Discharge Diet: Advance as tolerated Discharge Activity: Resume usual activity Patient Instructions: Ankle Sprain (ED) Coding Level of Care Code ED Shop Coordinator for Chg Fwd Exam Comprehensive
[2019-12-23 20:59] VITALS: BP 144/77; PULSE 115; RESP 20; O2SAT 97
[2019-12-23 21:31] VITALS: RESP 20; O2SAT 97
[2019-12-23] MEDS: morphine 4 mg/mL SDV 1 mL IVP (21:31)
[2019-12-23 22:59] VITALS: BP 115/75; PULSE 70; RESP 18; O2SAT 98
[2019-12-23 23:51] VITALS: BP 115/75; PULSE 70; RESP 18; TEMP 36.8; O2SAT 98
--- NOTE | 2019-12-24 12:04 | DCPLANNER ---
restaurant hourly manager had message to schedule a follow up appointment for patient with ortho. restaurant hourly manager called the ortho clinic, spoke with Madelin, gave clinic patients information. restaurant hourly manager was told that patients information would be printed and reviewed. Clinic will call patient with appointment information.
--- NOTE | 2019-12-26 10:47 | DCPLANNER ---
Beth from ortho called director of casework services stating that after review, Dr. Negron stated that patient can follow up with primary care physician, and if still in pain in a month, then patient can follow up with ortho.
== END 2019-12-23 23:52 | disposition home or self-care (01) ==
PROVIDERS: Emergency Provider Emergency Medicine; PCP Nurse Practitioner Family
DX: S93.402A Sprain of unspecified ligament of left ankle, initial encounter (principal); X50.1XXA Overexertion from prolonged static or awkward postures, initial encounter; Z79.01 Long term (current) use of anticoagulants; J44.9 Chronic obstructive pulmonary disease, unspecified; I10 Essential (primary) hypertension; Z86.73 Personal history of transient ischemic attack (TIA), and cerebral infarction without residual deficits; Z77.22 Contact with and (suspected) exposure to environmental tobacco smoke (acute) (chronic)
CPT/HCPCS: 12345; 29515; 73502; 73562; 73610; 96374; 96375; 99282; 99283; E0114; J2270

== ENCOUNTER 2020-01-15 14:14 | Emergency (ER) | payer MEDICARE, MEDICAID, SELFPAY ==
[2020-01-15 14:15] VITALS: BMI 55.9
[2020-01-15 14:19] VITALS: BP 145/90; PULSE 97; RESP 16; TEMP 36.7; O2SAT 98
--- NOTE | 2020-01-15 14:30 | XRR_ITS ---
PROCEDURE INFORMATION: Exam: XR Chest, 1 View Exam date and time: 01/15/2020 2:34 PM Age: 44 years old Clinical indication: Cough and dyspnea; Additional info: Dyspnea/cough TECHNIQUE: Imaging protocol: XR of the chest Views: 1 view. COMPARISON: CR XR chest 1V portable [id number] 11/26/2019 9:17 AM FINDINGS: Lungs: Unremarkable. No consolidation. Pleural space: Unremarkable. No pleural effusion. No pneumothorax. Heart/Mediastinum: Unremarkable. No cardiomegaly. Bones/joints: Unremarkable. XR/XR chest 1V portable [id number] IMPRESSION: No acute findings.
--- NOTE | 2020-01-15 14:30 | ECG_ITS ---
[facility] Test Date: 2020-01-15 Pat Name: Heladio Branch Department: Room: Gender: Female Contact Manager: : 1975 Requested By: Waldemar Osborne Order Number: [id number] Adalid MD: Kathy Anderson M.D. Measurements Intervals [place] Rate: 97 P: 46 OR: 152 QRS: 21 QRSD: 101 T: 51 QT: 368 QTc: 469 Interpretive Statements SINUS RHYTHM WITH OCCASIONAL SUPRAVENTRICULAR PREMATURE COMPLEXES NONSPECIFIC T-WAVE ABNORMALITY Compared to ECG 11/26/2019 11:32:02 T-wave abnormality now present Sinus tachycardia no longer present Electronically Signed On 01-16-2020 0:21:18 CDT by Kathy Anderson M.D. [id number]
--- NOTE | 2020-01-15 15:02 | CT_ITS ---
WS: [id number] CT CERVICAL TRAUMA TECHNIQUE: Noncontrast CT of the cervical spine with coronal and sagittal reformatted images. CLINICAL INFORMATION: neck pain after fall COMPARISON: None. DLP: 1019.[address] scans at [facility] use at least one of these dose optimization techniques: automat ed exposure control; mA and/or kV adjustment per patient size (includes targeted exams where dose is matched to clinical indication); or iterative reconstruction. FINDINGS: Straightening with slight reversal of the normal cervical lordosis. Normal craniocervical junction. N ormal C1-C2 articulation. Dens is normal in appearance. Normal occipital condyles. No high-grade spin al canal narrowing. Normal C1 ring. No evidence of acute fracture or dislocation. Normal prevertebral soft tissues. Mastoids air cells are well aerated. Notified Waldemar Augustine DO at 01/15/2020 3:[address]/CT cervical spin wo con* [id number] IMPRESSION: Straightening with slight reversal normal cervical lordosis. No acute cervical spine fractures.
--- NOTE | 2020-01-15 15:03 | CT_ITS ---
WS: [id number] CT HEAD TECHNIQUE: Noncontrast CT of the head obtained from the skullbase to the vertex. CLINICAL INFORMATION: fall with LOC COMPARISON: August 07, 2019 DLP: 1439.[address] scans at [facility] use at least one of these dose optimization techniques: automat ed exposure control; mA and/or kV adjustment per patient size (includes targeted exams where dose is matched to clinical indication); or iterative reconstruction. FINDINGS: No evidence of intracranial hemorrhage or mass effect. Ventricular system and basal cisterns are stevenson nt.No extra-axial fluid collections. No evidence of mass or mass effect. Normal sharif-white differenti ation. Paranasal sinuses and mastoid air cells are well aerated. .Normal visualized soft tissues. Notified Waldemar Augustine DO at 01/15/2020 3:[address]/CT head wo con* [id number] IMPRESSION: 1. No evidence of intracranial hemorrhage or mass effect. 2. Normal sharif-white differentiation. 3. No acute intracranial findings.
[2020-01-15 15:06] LABS: Hematocrit 43.3 % (37.0-47.0); Hemoglobin 13.9 g/dL (11.5-15.3); Lymphocytes # 1.8 10^3/uL (0.8-4.8); Lymphocytes % 30.9 %; Mean Corpuscular HGB Conc 32.1 g/dL (30.0-36.0); Mean Corpuscular Hemoglobin 28.4 pg (28.0-34.0); Mean Corpuscular Volume 88.4 fL (81-99); Mean Platelet Volume 11.2 fL (7.4-10.4); Monocytes # 0.6 10^3/uL (0.2-0.9); Monocytes % 9.7 %; Neutrophils # 3.51 10^3/uL (1.8-7.7); Neutrophils % 59.1 %; Nucleated Red Blood Cells % 0 %; Platelet Count 254 10^3/cmm (130-400); Red Cell Distribution Width 14.4 % (12.1-15.1)
[2020-01-15 15:23] LABS: Alanine Aminotransferase 59 U/L (0-33); Albumin Level 4.4 g/dL (3.5-5.2); Alkaline Phosphatase 89 IU/L (35-105); Anion Gap 15.1 (5-19); Aspartate Amino Transferase 45 U/L (0-32); Blood Urea Nitrogen 13 mg/dL (6-20); Calcium 10.1 mg/dL (8.5-10.5); Carbon Dioxide 30 mmol/L (22-29); Chloride 94 mmol/L (98-107); Glomerular Filtration Rate 54.5 mL/min (90-130); Glucose 137 mg/dL (65-115); Osmolality Calculated 280 mOsm/kg (285-295); Potassium 3.1 mmol/L (3.5-5.1); Sodium 136 mmol/L (136-145); Total Bilirubin 0.3 mg/dL (0.15-1.2); Total Protein 7.4 g/dL (6.6-8.7)
--- NOTE | 2020-01-15 16:13 | W.ED.SYNCOPE ---
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 MD complaint: loss of consciousness and felt faint Onset (ago): minute(s) Duration of episode: 30 -: second(s) Description of event: post-event confusion Prodromal symptoms: lightheaded Witnessed: No Context: at rest Injuries sustained associated with event: none Associated symptoms: Reports no associated symptoms; Deny abdominal pain, chest pain, fever(s) or nausea History: previous syncopal episode (multiple) Treatments prior to arrival: none Review of Systems Const: Denies: fever(s), chills, body aches, change in appetite, fatigue or malaise ENMT: Denies: throat pain, ear or mastoid pain, nasal discharge or nasal congestion Card: Denies: chest pain, edema, dyspnea on exertion or orthopnea Resp: Denies: dyspnea, productive cough or non-productive cough GI: Denies: abdominal pain, nausea, vomiting, hematemesis, coffee ground emesis, diarrhea, constipation, bloating, hematochezia or melena : Denies: flank pain, difficulty voiding, dysuria, urinary frequency or urinary urgency Skin/Breast: Denies: rash or pruritus PFSH ED PFSH: Medical History Anticoagulated on warfarin Body mass index (BMI) 45.0-49.9, adult Not motivated to lose weight Chronic constipation Controlled with medications followed by her primary care provider COPD (chronic obstructive pulmonary disease) Diagnosed in 2013 and is controlled with medication Depression Diagnosed at the age of 23 and has been on medication since then. She follows up with Dr. Benitez a psychiatrist and as well as therapy in [place]. She currently denies suicidal/homicidal ideation. Essential (primary) hypertension Diagnosed in 2019 and she follows up with Dr. Anderson and cardiology. Gastro-esophageal reflux disease without esophagitis Controlled with medication. H/O deep venous thrombosis Reports having a DVT in 2019 and states her warfarin dose was increased after this. She follows up with Dr. Crespo Obstructive sleep apnea Personal history of pulmonary embolism (~2012) States that she had a PE in 2012 and has been on warfarin since then. She had evaluation performed by Dr. Crespo which was negative TIA (transient ischemic attack) Reports having had a TIA in 2019. Denies any neurological deficits. Followed by her primary care provider. Surgical History Status post conization of cervix Office LEEP procedure performed by Dr. Zelaya in 2005 for MARY-2 on Pap smear. 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 Status post knee surgery 2018-open knee surgery for torn ACL Status post left breast lumpectomy Patient reports having had 3 lumpectomies of her left breast in 1999, 2007 and 2009 for benign lesions. Family History Mother Hypertension Heart disease Grandmother Hypertension maternal and paternal Breast cancer maternal, diagnosed at age 43 Colon cancer maternal, diagnosed at age 63 Father Hypertension Grandfather Hypertension maternal and paternal Heart disease maternal Denies family history of Ovarian cancer Diabetes Uterine cancer Thyroid condition Stroke Social History Smoking and tobacco status: former smoker Second hand smoke exposure: Yes Alcohol intake: current Other details last substance use: last used 2013 per patient Lives independently: Yes Housing: House Marital status: Single Number of children: 0 service: No History of recent travel: No Additional social history: - Tobacco Use: Denies past or present use Drug Use: Medical marijuana use Alcohol Use: Denies Work/Study Status: Disabled due to mental health problems Female Reproductive History: Date of last menstrual period: 10/21/19 Physical Exam Const: COMMON NORMALS: no acute distress GENERAL APPEARANCE: cooperative and comfortable ORIENTATION/CONSCIOUSNESS: Yes awake, Yes oriented to person, Yes oriented to place and Yes oriented to time HENMT: COMMON NORMALS: normocephalic, atraumatic, hearing grossly normal bilaterally, external ears normal, EAC's normal, TM's normal bilaterally, Normal nasal mucous membranes and turbinates present, moist oral mucous membranes and oropharynx normal HEAD & SCALP: normocephalic and atraumatic NOSE: Normal nasal mucous membranes and turbinates present EXTERNAL EAR: Yes external ears normal EXTERNAL AUDITORY CANAL: EAC's normal TYMPANIC MEMBRANE: TM's normal bilaterally Eye: COMMON NORMALS: Equal, round and reactive pupils present, EOMs intact bilaterally, conjunctivae normal and no scleral icterus CONJUNCTIVA: Yes conjunctivae normal PUPIL: Yes Equal, round and reactive pupils present Neck/C-Spine: COMMON NORMALS: full ROM, no lymphadenopathy, supple and no JVD Lymph: LYMPHATIC: no lymphadenopathy noted and no lymphedema noted Resp: COMMON NORMALS: normal respiratory effort, No retractions, No use of accessory muscles and clear to auscultation bilaterally AUSCULTATION: clear to auscultation bilaterally Cardio: COMMON NORMALS: no JVD, regular rate, regular rhythm and No murmurs present (Cardio) RATE: regular rate RHYTHM: regular rhythm GI: COMMON NORMALS: Soft to palpation and No hepatosplenomegaly present AUSCULTATION: Yes normoactive bowel sounds PALPATION: Yes Soft to palpation, No Tenderness to palpation present (GI), No Guarding due to palpation present (GI) and Yes No hepatosplenomegaly present Extremity: COMMON NORMALS: normal to inspection, capillary refill normal, no clubbing, cyanosis or edema, no calf tenderness and no pedal edema Neuro: SENSORIUM/ORIENTATION: Yes oriented to person, Yes oriented to place and Yes oriented to time Skin: COMMON NORMALS: no rashes or lesions noted GENERAL SKIN EXAM: no rashes or lesions noted Course Vital Signs: Vital signs: Vital Signs Temperature 97.8 F 01/15/20 19:14 Pulse Rate 97 01/15/20 19:14 Respiratory Rate 15 01/15/20 19:14 Blood Pressure 135/74 01/15/20 19:14 Pulse Oximetry 98 01/15/20 19:14 MDM - Syncope MDM Narrative: Medical decision making narrative: CT is negative remove the c-collar she is feeling much better will get her up and ambulate her once fluids are finished she still doing well we will go ahead and discharge her home suspect she had another syncopal episode like she is had in the past. Lab Data: Labs: Lab Results 07/29/20 07/29/20 Range/Units 14:56 14:56 WBC 6.0 (4.0-10.0) 10^3/ uL RBC 4.90 (4.1-5.3) 10^6/u L Hgb 13.9 (11.5-15.3) g/dL Hct 43.3 (37.0-47.0) % MCV 88.4 (81-99) fL MCH 28.4 (28.0-34.0) pg MCHC 32.1 (30.0-36.0) g/dL RDW 14.4 (12.1-15.1) % Plt Count 254 (130-400) 10^3/c mm MPV 11.2 H (7.4-10.4) fL Neut % (Auto) 59.1 % Lymph % (Auto) 30.9 % [place] % (Auto) 9.7 % Eos % (Auto) 0.0 % Baso % (Auto) 0.0 % Neut # (Auto) 3.51 (1.8-7.7) 10^3/u L Lymph # (Auto) 1.8 (0.8-4.8) 10^3/u L [place] # (Auto) 0.6 (0.2-0.9) 10^3/u L Eos # (Auto) 0.0 (0.0-0.8) 10^3/u L Baso # (Auto) 0.0 (0.0-0.1) 10^3/u L Nucleated RBC % (a uto) 0 % Nucleated RBCs # 0.0 /100WBC Sodium 136 (136-145) mmol/L Potassium 3.1 L (3.5-5.1) mmol/L Chloride 94 L (98-107) mmol/L Carbon Dioxide 30 H (22-29) mmol/L Anion Gap 15.1 (5-19) BUN 13 (6-20) mg/dL Creatinine 1.1 H (0.5-0.9) mg/dL GFR Calculation 54.5 L (90-130) mL/min Glucose 137 H (65-115) mg/dL Calculated Osmolal ity 280 L (285-295) mOsm/k g Calcium 10.1 (8.5-10.5) mg/dL Total Bilirubin 0.3 (0.15-1.2) mg/dL AST 45 H (0-32) U/L ALT 59 H (0-33) U/L Alkaline Phosphata se 89 (35-105) IU/L Total Protein 7.4 (6.6-8.7) g/dL Albumin 4.4 (3.5-5.2) g/dL Globulin 3.0 (1.3-4.6) g/dL Discharge Plan Discharge Patient Disposition: Home Clinical Impression: Syncope, Hypokalemia Condition: Stable Prescriptions: No Action aripiprazole [Abilify] 2 mg tablet 4 mg PO BEDTIME RF: 0 albuterol sulfate [Ventolin HFA] 90 mcg/actuation HFA aerosol inhaler 2 puff INHALATION QID PRN (Reason: Shortness Of Breath) RF: 0 acetaminophen [Tylenol 8 Hour] 650 mg tablet extended release 650 mg PO Q8H PRN (Reason: Mild Pain (Scale Score 1-4)) RF: 0 ferrous sulfate 325 mg (65 mg iron) tablet 325 mg PO BID RF: 0 omeprazole 20 mg capsule,delayed release(DR/EC) 20 mg PO DAILY 30 Days Qty: 30 RF: 3 amlodipine 5 mg tablet 5 mg PO DAILY 30 Days Qty: 30 RF: 3 chlorthalidone 25 mg tablet 25 mg PO DAILY 30 Days Qty: 30 RF: 4 potassium chloride 10 mEq capsule, extended release 10 meq PO DAILY 30 Days Qty: 30 RF: 4 quetiapine 300 mg tablet 300 mg PO BEDTIME RF: 0 silver nitrate applicators 75-25 % stick 1 applic TOPICAL ONCE Qty: 1 RF: 0 metformin 500 mg tablet 500 mg PO DAILY RF: 0 nystatin 100,000 unit/gram cream 1 applic TOPICAL DAILY Qty: 15 RF: 0 metoprolol tartrate 50 mg tablet 100 mg PO BID RF: 0 isosorbide mononitrate 20 mg tablet See Rx Instructions .ROUTE .COMPLEX Qty: 120 RF: 0 alprazolam [Xanax] 2 mg Tablet 2 mg PO TID RF: 0 desvenlafaxine 100 mg Tablet Extended Release 24 Hr 100 mg PO DAILY RF: 0 desipramine 75 mg Tablet 150 mg PO DAILY RF: 0 cholecalciferol (vitamin D3) 1,250 mcg (50,000 unit) capsule 1,250 mcg PO Q7D RF: 0 Eliquis DVT-PE Treat 30D Start 5 mg (74 tabs) tablets,dose pack See Rx Instructions .ROUTE .COMPLEX Qty: 74 RF: 0 hydrocodone-acetaminophen [[place]] 5-325 mg tablet 1 tab PO Q6H PRN (Reason: pain) Qty: 14 RF: 0 Discharge Orders: Discharge Order (Routine); Ordered 01/15/20 Ordered By: Waldemar Augustine Referrals: Christa Chew APN [Primary Care Provider] - Discharge Diet: Advance as tolerated Discharge Activity: Resume usual activity Activity Restrictions/Additional Instructions: Follow-up with your primary care doctor if you have any further problems return to the emergency room if you have recurrence. Discharge Date/Time: 01/15/20 19:38 Coding Level of Care Code ED [employer] Fwd Exam Comprehensive
[2020-01-15] MEDS: potassium chloride oral liq 20 mEq/15 mL UDC 40 MEQ PO (17:13)
[2020-01-15] MEDS: sodium chloride 0.9% 1,000 ML 999 ML IV (17:14)
[2020-01-15 19:14] VITALS: BP 135/74; PULSE 97; RESP 15; TEMP 36.6; O2SAT 98
== END 2020-01-15 19:38 | disposition home or self-care (01) ==
PROVIDERS: Emergency Provider Family Medicine; PCP Nurse Practitioner Family
DX: R55 Syncope and collapse (principal); E87.6 Hypokalemia; Z79.01 Long term (current) use of anticoagulants; Z87.891 Personal history of nicotine dependence; J44.9 Chronic obstructive pulmonary disease, unspecified; I10 Essential (primary) hypertension; Z86.73 Personal history of transient ischemic attack (TIA), and cerebral infarction without residual deficits
CPT/HCPCS: 12345; 36415; 70450; 71045; 72125; 80053; 85025; 93005; 96360; 99283; 99284; J7030

== ENCOUNTER 2020-01-28 09:46 | Outpatient (CLI) | payer MEDICARE, MEDICAID, SELFPAY ==
[2020-01-28 10:56] LABS: Hematocrit 44.9 % (37.0-47.0); Hemoglobin 14.4 g/dL (11.5-15.3); Lymphocytes # 1.9 10^3/uL (0.8-4.8); Lymphocytes % 32.4 %; Mean Corpuscular HGB Conc 32.1 g/dL (30.0-36.0); Mean Corpuscular Hemoglobin 28.3 pg (28.0-34.0); Mean Corpuscular Volume 88.2 fL (81-99); Mean Platelet Volume 11.4 fL (7.4-10.4); Monocytes # 0.5 10^3/uL (0.2-0.9); Monocytes % 8.9 %; Neutrophils # 3.43 10^3/uL (1.8-7.7); Neutrophils % 58.5 %; Nucleated Red Blood Cells % 0 %; Platelet Count 305 10^3/cmm (130-400); Red Blood Count 5.09 10^6/uL (4.1-5.3); Red Cell Distribution Width 14.3 % (12.1-15.1); White Blood Count 5.9 10^3/uL (4.0-10.0)
[2020-01-28 11:18] LABS: Alanine Aminotransferase 52 U/L (0-33); Albumin Level 4.2 g/dL (3.5-5.2); Alkaline Phosphatase 93 IU/L (35-105); Anion Gap 16.8 (5-19); Aspartate Amino Transferase 35 U/L (0-32); Blood Urea Nitrogen 9 mg/dL (6-20); Calcium 9.6 mg/dL (8.5-10.5); Carbon Dioxide 29 mmol/L (22-29); Chloride 95 mmol/L (98-107); Ferritin 43 ng/mL (15-150); Globulin 3.6 g/dL (1.3-4.6); Glomerular Filtration Rate 54.5 mL/min (90-130); Glucose 173 mg/dL (65-115); Iron 60 ug/dL (37-145); Osmolality Calculated 284 mOsm/kg (285-295); Percent Saturation 15.6 % (20-50); Potassium 3.8 mmol/L (3.5-5.1); Sodium 137 mmol/L (136-145); Total Bilirubin 0.2 mg/dL (0.15-1.2); Total Iron Binding Capacity 383 mcg/dl; Total Protein 7.8 g/dL (6.6-8.7); Unsaturated Iron Binding 323 ug/dL (112-347)
[2020-01-28 16:36] LABS: Estmated Average Glucose 177; Hemoglobin A1C 7.8 % (4.0-6.0)
--- NOTE | 2020-02-01 12:07 | ONC FU_ITS ---
Dr. Crespo Patient Follow-Up Note Patient: Heladio Branch Unit #: [id number]: [id number] Dicatated By: Rufus Crespo M.D.Date of Visit:Jan 28, 2020 Onc Med Follow-up/Prog Note Chief Complaint: Recurrent thromboembolism/anemia. History of Present Illness: This is a 44 year-old woman with recurrent thromboembolism. She also has had evidence of iron deficiency anemia. In November 2013 she was found on CT pulmonary angiogram to have multiple pulmonary emboli. Lower extremity venous Dopplers at that time were negative. She was treated with IV heparin followed by long-term warfarin therapy. I had seen her initially on 05/02/2018. She had been seen at [facility] 3 weeks earlier with pain and swelling in her left leg. A venous Doppler had shown evidence of deep vein thrombosis. Prior to that she had several subtherapeutic INRs. She had continued anticoagulation with warfarin, and the most recent INR prior to that visit had been therapeutic at 2.8. On evaluation, she was noted to be mildly anemic with hypochromic/microcytic red cell indices. Her transferrin saturation was low at 6.1% and ferritin was low at 16 ng/mL, consistent with iron deficiency. Her anti-cardiolipin antibody screen was negative. Her repeat venous Doppler studies showed no evidence for lower extremity deep vein thrombosis, and there was no evidence for underlying malignancy on CT scans of the chest, abdomen, and pelvis. She was advised to increase her iron supplement to twice daily, and she continued anticoagulation with warfarin. She has multiple medical illnesses including hypertension, coronary artery disease with previous myocardial infarction, and a suspected TIA. She also has obesity, obstructive sleep apnea, GERD, anxiety/depression, somatizations disorder, and PTSD. She had a prior history of iron deficiency anemia, which apparently was severe enough to require transfusion in 2017. There was also a reported history of substance abuse. INTERIM HISTORY: As of her follow-up visit on 02/26/2019 her hemoglobin remained borderline low at 12.5 g with hypochromic/microcytic red cell indices. Her transferrin saturation was low at 13.6 g with low ferritin at 27.0 ng/mL, consistent with iron deficiency. As the iron deficiency was not correcting on oral iron replacement, she was given parenteral iron replacement with a single infusion of Injectafer, which she tolerated well. As of her follow-up visit on 07/29/2019 she continued to have significant fatigue, but her hemoglobin was normal at 13.3 g. She continued oral iron supplementation, and she continued anticoagulation with warfarin. On 10/30/2019 she was seen by for abnormal uterine bleeding. On 11/13/2019 she underwent endometrial biopsy. Pathology showed abnormal secretory phase endometrium but no evidence of malignancy. On 11/16/2019 she was admitted to the hospital with persistent vaginal bleeding. It resolved with conservative management. She resumed warfarin at discharge. During subsequent follow-up her anticoagulation was changed to apixaban, reportedly because of a new blood clot in her left groin area, diagnosed at [facility]. On 01/15/2020 she was evaluated in the emergency room after having another syncopal episode. At that point she continued anticoagulation with apixaban. She is seen for a follow-up visit. She has now taking metformin for diabetes. She complains that she still has no energy. She is on home health and she is getting physical therapy. She says she can walk to the mailbox now. She is able to do some light work. ECOG score is 1. She has good appetite. She has not had fever. She does report having sweating both during the daytime and at night. She says she is really short of breath. She does not have cough. She has had episodes of chest pain, and she has syncopal episodes. She does not complain of nausea. Her acid reflux is adequately managed. She has constipation, but her bowels are moving about every other day. Her bladder control is better now. She has had no further vaginal bleeding and no further menstruation. She has some joint pain, mainly in the knees. She complains that she has had constant headache for the past 2 days. It is in the frontal area. She has dizziness if she gets up too fast. She has no focal neurologic symptoms. Medications: Acetaminophen ER 1 Tablet (of 650 mg) Tablet, controlled release Oral PRN, Albuterol Sulfate 2 Puff(s) (of 108 (90 base) mcg/act) Aerosol Powder, Breath Activated Inhalation four times a day PRN, ALPRAZolam 1 Tablet (of 2 mg) Oral t.i.d. PRN, amLODIPine Besylate 1 Tablet (of 5 mg) Oral daily, ARIPiprazole 1 Tablet (of 4 mg) Oral at bedtime, Chlorthalidone 1 Tablet (of 25 mg) Oral daily, Eliquis 1 Tablet (of 5 mg) Oral daily, Ibuprofen 2 Tablet (of 200 mg) Oral PRN, Multivitamin 1 Tablet Oral daily, Naproxen 1 Tablet (of 500 mg) Oral PRN, Nystatin 1 (577822 Units/g) Cream Topical daily, Omeprazole 1 Capsule (of 20 mg) Capsule Delayed Release Oral daily, Potassium Chloride ER 1 Capsule (of 10 meq) Capsule, controlled release Oral daily, QUEtiapine Fumarate 1 Tablet (of 300 mg) Oral at bedtime, Silver Nitrate-Pot Nitrate Miscellaneous Topical PRN Allergies: Cymbalta, Effexor XR, fish, LaMICtal, Lexapro, PROzac, Topamax, and Wellbutrin. Review of Systems: Constitutional - Her energy remains very poor. She does some light housework as well as light walking. He appetite is good and weight is down a few pounds from last visit. No fevers. She has persistent sweating both during the day and at night. ECOG score 1, ENMT - No sinus congestion/drainage. No mouth sores. No sore throat or difficulty swallowing, Hematologic/Lymphatic - She reports that she was found to have a new blood clot in her left leg on a recent hospital admission at [facility] in [place]. She has some bruising, but she currently has no other bleeding, Respiratory - She continues to have shortness of breath with any activity. No cough. No pleuritic pain or hemoptysis, Cardiovascular - She continues to have chest pain and she has had multiple ER visits for syncope, Gastrointestinal - No nausea or vomiting. She has heartburn/acid reflux. She complains that whenever she eats goes right through her. No blood in the stool or black stools, Genitourinary (F) - No dysuria or hematuria. No urinary frequency. She says her bladder control has improved. She apparently was having prolonged menstrual bleeding with her admission and in [place], but that bleeding has resolved and thus far she has had no further menstruation, Musculoskeletal - She says her joints hurt like crazy all over, but especially her knees and lower back. She also has pain and swelling in her left leg and she has muscle cramps all the way up her left leg, Integumentary - No skin complications, Neurologic - She has had a constant frontal headache for a few days. She occasional gets dizzy with positional changes. She had numbness in her left foot and half-way up her left leg in association with a recent episode of lightheadedness. No other focal neurologic symptoms, Psychiatric - She is seeing a psychiatrist, Dr. Benitez, for her anxiety or depression. She does not sleep well. Vital Signs: Performed on Jan 28, 2020 14:18 Height - 64.00 in Weight - 333.0 lbs (LOW) BSA - 2.43 sq.m BMI - 57.16 (HIGH) Temperature - 97.0 F (LOW) Pulse - 108 /min (HIGH) Respiration - 24 /min BP - 164/99 mm(hg) (HIGH) O2 Sat - 98 % Pain - 7 Physical Examination: Constitutional - She does not appear acutely ill. , Eyes - Sclerae nonicteric. Conjunctivae clear, ENMT - No lesions noted in the oral cavity, Hematologic/Lymphatic - No cervical, clavicular, or axillary adenopathy, Respiratory - Lungs sound clear, Cardiovascular - Heart rhythm is regular. There is no murmur, gallop, or rub noted, Abdomen - Distended. Liver and spleen are not enlarged. There is no abdominal mass or ascites noted and there is no inguinal adenopathy, Extremities - No edema, Neurologic - No focal neurologic deficits noted. Lab/Imaging: Test performed on Jan 28, 2020 10:41 Hemoglobin A1C % 7.8 % Test performed on Jan 28, 2020 09:58 Ferritin 43 ng/mL Iron 60 mcg/dL Sodium 137 mmol/L Iron Binding Capacity (TIBC) 383 mcg/dl Potassium 3.8 mmol/L % Iron Saturation 15.6 % Chloride 95 mmol/L CO2 29 mmol/L UIBC 323 mcg/dL Anion Gap 16.8 BUN 9 mg/dL Creatinine 1.1 mg/dL Cr Clearance (Est) 158.87 mL/min eGFR 54.5 mL/min Glucose 173 mg/dL Calcium 9.6 mg/dL Protein, Total 7.8 g/dL Albumin 4.2 g/dL Globulin 3.6 g/dL Bilirubin, Total 0.2 mg/dL ALT (SGPT) 52 U/L AST (SGOT) 35 U/L Alkaline Phosphatase 93 IU/L WBC 5.9 10 3/uL RBC 5.09 10 6/uL HGB 14.4 g/dL HCT 44.9 % MCV 88.2 fL MCH 28.3 pg MCHC 32.1 g/dL RDW 14.3 % Platelet Count 305 10 3/cmm MPV 11.4 fL Neutrophils 3.43 10 3/uL Lymphocytes 1.9 10 3/uL Monocytes 0.5 10 3/uL Eosinophils 0.0 10 3/uL Basophils 0.0 10 3/uL Neutrophil % 58.5 % Lymphocyte % 32.4 % Monocyte % 8.9 % Eosinophil % 0.0 % Basophils % 0.0 % NRBC % 0 % Impression: 1. Patient with recurrent thromboembolism including an episode of unprovoked pulmonary emboli in November 2013 and a recent episode of left lower extremity deep vein thrombosis while on anticoagulation with warfarin. The 2nd episode may have been related to subtherapeutic anticoagulation. 2. She has iron deficiency anemiafor which she has been on oral iron supplementation. Her other medical illnesses include: 3. Hypertension. 4. She has reported history of myocardial infarction in 2007. It is uncertain how well that was documented. Records indicate she had normal stress test in 2014. 5. Obesity. 6. Obstructive sleep apnea. 7. GERD. 8. Anxiety/depression. 9. PTSD. 10. Somatizations disorder. 11. There is reported history of substance abuse. Her evaluation in April 2018 showed no underlying cause for thromboembolism. She then continued on anticoagulation with warfarin with no further thrombosis. During follow-up she continued to have significant fatigue. As of her visit on 02/26/2019 she remained mildly anemic, and her serum iron studies and ferritin were clearly consistent with iron deficiency. As she was not correcting the iron deficiency with oral iron, she was given parenteral iron replacement with a single infusion of Injectafer. During subsequent follow-up her hemoglobin remained adequate in the range of 12 to 13 g, though with borderline low transferrin saturation and ferritin levels. Her further clinical course was complicated by chest pain and recurrent syncopal episodes, though with no evidence of underlying cardiac disease. In December 2019 her anticoagulation was changed from warfarin to apixaban, reportedly because of a new blood clot in the left groin area, diagnosed at [facility]. At this point she continues to complain of fatigue, and she has limited activity, though she has been showing improvement with physical therapy. Her hemoglobin now is normal at 14.4 g, though her serum iron studies still show mildly decreased transferrin saturation at 15.6% and ferritin in the low normal range at 43 ng/mL. Plan: As long as her hemoglobin is normal, she can just continue on oral iron supplementation. She will continue anticoagulation with apixaban. Her current lab studies will be forwarded to Christa Chew. She will continue to monitor her blood counts every 3 months with Christa, and I will see her again as needed. Signed By: Rufus Crespo M.D. <<Signature on File>>
== END 2020-01-28 09:47 | disposition home or self-care (01) ==
LOC: ONCMED 09:51
PROVIDERS: PCP Nurse Practitioner Family; Visit Provider Internal Medicine Medical Oncology
DX: I74.9 Embolism and thrombosis of unspecified artery (principal); D50.9 Iron deficiency anemia, unspecified; E11.9 Type 2 diabetes mellitus without complications; I10 Essential (primary) hypertension; I25.2 Old myocardial infarction; E66.9 Obesity, unspecified; G47.33 Obstructive sleep apnea (adult) (pediatric); K21.9 Gastro-esophageal reflux disease without esophagitis; F41.9 Anxiety disorder, unspecified; F32.9 Major depressive disorder, single episode, unspecified; F43.10 Post-traumatic stress disorder, unspecified; F45.9 Somatoform disorder, unspecified; F19.11 Other psychoactive substance abuse, in remission; Z79.01 Long term (current) use of anticoagulants
CPT/HCPCS: 80053; 82728; 83036; 83540; 83550; 85025; 99214

== ENCOUNTER → 2020-02-06 14:27 | Outpatient (BNVA) | payer MEDICARE, MEDICAID, SELFPAY | PROVIDERS: PCP Nurse Practitioner Family; Visit Provider Obstetrics & Gynecology | DX: N83.02 Follicular cyst of left ovary (principal); N83.01 Follicular cyst of right ovary | CPT/HCPCS: 76830 ==

== ENCOUNTER → 2020-02-26 08:01 | Outpatient (BNVA) | payer MEDICARE, MEDICAID, SELFPAY | PROVIDERS: PCP Nurse Practitioner Family; Visit Provider Obstetrics & Gynecology | DX: Z30.9 Encounter for contraceptive management, unspecified (principal) | CPT/HCPCS: 81025 ==

== ENCOUNTER 2020-03-03 13:50 | Emergency (ER) | payer MEDICARE, MEDICAID, SELFPAY ==
[2020-03-03 13:51] VITALS: BP 129/92; PULSE 111; RESP 20; TEMP 36.9; O2SAT 99; BMI 57.3
--- NOTE | 2020-03-03 13:53 | W.ED.CHESTPA ---
HPI - Chest Pain General: Chief Complaint: Chest Pain Stated Complaint: CHEST PAIN Time Seen by Provider: 03/03/20 13:53 Source: patient and RN notes reviewed History of Present Illness: HPI narrative: 44-year-old female sent here from her outpatient psychology appointment because she mentioned that she had chest pain. She was actually seen at [facility] and at [facility] both within the last several days and I have the records from [place]. Patient complains of stabbing chest pain that is left-sided that comes and goes and has been present for the most part for 3 days. She does have a history of PE and DVT and is on Eliquis. The only dose she missed was 1 dose in the morning I believe on Monday when she was hospitalized at [place] likely because of timing of admission. Denies any shortness of breath cough or fever. Denies any crushing chest pain or heaviness. No nausea or vomiting. 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 Anderson at some point but does not have an appointment. She does not have her monitor on currently and states that she took it off and put it in her purse. Review of her record from [place] shows admission date of 03/01/2020 discharge date of 03/02/2020 diagnosis was accelerated hypertension she was monitored in telemetry after being admitted for complaint of chest pain. She ruled out for acute coronary syndrome. This record reveals that she has an appointment with Dr. Anderson on 03/12/2020 to have her event monitor removed Associated symptoms: Deny abdominal pain, dyspnea, fever(s), nausea or vomiting Review of Systems General: Reports: 10 or more systems reviewed and unremarkable except in HPI and below Const: Denies: fever(s) or chills Eyes: Denies: change in vision ENMT: Denies: throat pain Card: Reports: chest pain Resp: Denies: dyspnea GI: Denies: abdominal pain, nausea, vomiting or change in bowel habits : Denies: difficulty voiding Musc: Denies: muscle weakness Skin/Breast: Denies: rash Neuro: Denies: headache(s) Psych: Denies: hopelessness or suicidal ideation Endo: Denies: polyuria Ander/Lymph: Denies: easy bruising or easy bleeding All/Imm: Denies: urticaria [facility] ED PFSH: Medical History (Updated 03/03/20 @ 17:09 by Michelle Calderon MD) Body mass index (BMI) 45.0-49.9, adult Not motivated to lose weight Chronic constipation Controlled with medications followed by her primary care provider COPD (chronic obstructive pulmonary disease) Diagnosed in 2013 and is controlled with medication Depression Diagnosed at the age of 23 and has been on medication since then. She follows up with Dr. Benitez a psychiatrist and as well as therapy in [place]. She currently denies suicidal/homicidal ideation. Essential (primary) hypertension Diagnosed in 2018 and she follows up with Dr. Anderson and cardiology. Gastro-esophageal reflux disease without esophagitis Controlled with medication. H/O deep venous thrombosis Reports having a DVT in 2019 and states her warfarin dose was increased after this. She follows up with Dr. Crespo -had second DVT in 11/2019 and was taken off warfarin and is now on eliquis Obstructive sleep apnea Personal history of pulmonary embolism (~2012) States that she had a PE in 2012 and has been on warfarin since then. She had evaluation performed by Dr. Crespo which was negative TIA (transient ischemic attack) Reports having had a TIA in 2019. Denies any neurological deficits. Followed by her primary care provider. Surgical History Status post conization of cervix Office LEEP procedure performed by Dr. Zelaya in 2005 for MARY-2 on Pap smear. 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 Status post knee surgery 2018-open knee surgery for torn ACL Status post left breast lumpectomy Patient reports having had 3 lumpectomies of her left breast in 1999, 2007 and 2009 for benign lesions. Family History Mother Hypertension Heart disease Grandmother Hypertension maternal and paternal Breast cancer maternal, diagnosed at age 43 Colon cancer maternal, diagnosed at age 63 Father Hypertension Grandfather Hypertension maternal and paternal Heart disease maternal Denies family history of Ovarian cancer Diabetes Uterine cancer Thyroid condition Stroke Social History Smoking and tobacco status: former smoker Second hand smoke exposure: Yes Alcohol intake: current Other details last substance use: last used 2013 per patient Lives independently: Yes Housing: House Marital status: Single Number of children: 0 service: No History of recent travel: No Female Reproductive History: Date of last menstrual period: 10/21/19 Physical Exam Const: COMMON NORMALS: no acute distress, patient oriented x3, alert and well nourished HENMT: COMMON NORMALS: normocephalic and Normal external nose present HEAD & SCALP: normocephalic NOSE: Normal external nose present MOUTH: no trismus Eye: COMMON NORMALS: EOMs intact bilaterally and conjunctivae normal CONJUNCTIVA: Yes conjunctivae normal Neck/C-Spine: COMMON NORMALS: full ROM, no lymphadenopathy and supple CERVICAL SPINE: Yes cervical ROM normal Lymph: LYMPHATIC: no lymphadenopathy noted Resp: COMMON NORMALS: normal respiratory effort, No retractions, No use of accessory muscles and clear to auscultation bilaterally EFFORT & INSPECTION: Yes able to speak in complete sentences AUSCULTATION: clear to auscultation bilaterally Cardio: COMMON NORMALS: regular rate and regular rhythm RATE: regular rate RHYTHM: regular rhythm GI: COMMON NORMALS: Normal to inspection, nondistended, normoactive bowel sounds present, Soft to palpation, non-tender and no masses INSPECTION: Yes normal to inspection AUSCULTATION: Yes normoactive bowel sounds PALPATION: Yes Soft to palpation, No Guarding due to palpation present (GI) and No Rigid due to palpation Back/Pelvis: OTHER: Normal range of motion Extremity: GENERAL: Yes normal exam except as noted Neuro: COMMON NORMALS: patient oriented x3 and CN's II-XII intact bilaterally SENSORIUM/ORIENTATION: Yes alert SPEECH: speech normal Psych: COMMON NORMALS: mental status grossly normal Skin: COMMON NORMALS: no rashes or lesions noted GENERAL SKIN EXAM: no rashes or lesions noted Course Vital Signs: Vital signs: Vital Signs Temperature 98.1 F 03/03/20 16:48 Pulse Rate 108 H 03/03/20 16:48 Respiratory Rate 24 H 03/03/20 16:48 Blood Pressure 130/99 03/03/20 16:48 Pulse Oximetry 97 03/03/20 15:57 MDM - Chest Pain Lab Data: Attestation: I reviewed the patient's lab results. Labs: Lab Results 03/03/20 03/03/20 03/03/20 Range/Units 14:19 14:19 14:19 WBC 6.0 (4.0-10.0) 10^3/ uL RBC 4.68 (4.1-5.3) 10^6/u L Hgb 13.4 (11.5-15.3) g/dL Hct 42.0 (37.0-47.0) % MCV 89.7 (81-99) fL MCH 28.6 (28.0-34.0) pg MCHC 31.9 (30.0-36.0) g/dL RDW 14.4 (12.1-15.1) % Plt Count 276 (130-400) 10^3/c mm MPV 11.0 H (7.4-10.4) fL Neut % (Auto) 62.5 % Lymph % (Auto) 29.8 % [place] % (Auto) 7.2 % Eos % (Auto) 0.0 % Baso % (Auto) 0.2 % Neut # (Auto) 3.75 (1.8-7.7) 10^3/u L Lymph # (Auto) 1.8 (0.8-4.8) 10^3/u L [place] # (Auto) 0.4 (0.2-0.9) 10^3/u L Eos # (Auto) 0.0 (0.0-0.8) 10^3/u L Baso # (Auto) 0.0 (0.0-0.1) 10^3/u L Nucleated RBC % (a uto) 0 % Nucleated RBCs # 0.0 /100WBC PT 12.60 (12.1-14.9) SECO NDS INR 0.91 (0.8-1.2) Sodium 134 L (136-145) mmol/L Potassium 3.5 (3.5-5.1) mmol/L Chloride 95 L (98-107) mmol/L Carbon Dioxide 26 (22-29) mmol/L Anion Gap 16.5 (5-19) BUN 8 (6-20) mg/dL Creatinine 1.0 H (0.5-0.9) mg/dL GFR Calculation 60.8 L (90-130) mL/min Glucose 215 H (65-115) mg/dL Calculated Osmolal ity 280 L (285-295) mOsm/k g Calcium 9.3 (8.5-10.5) mg/dL Imaging Data^: CTA Chest: Radiologist's impression: [address] [place] [address] CT Scan Report Signed Patient: Heladio Branch #: [id number] : 1975Acct#:[id number] Age/Sex: 44 / FADM Date: 03/03/20 Loc: ERRoom/Bed: Attending Dr: Ordering Provider/Ordering MD: Michelle Calderon MD Date of Service: 03/03/20 Procedure(s): CT angio chest PE protcl [id number] Accession Number(s): [id number] Report Number: [id number] WS: [id number] CT CHEST ANGIOGRAPHY WITH REFORMATS HISTORY: william cp, hx of PE TECHNIQUE: Contiguous axial images are obtained through the chest during arterial injection of intravenous contrast. Images are reconstructed to evaluate the pulmonary arteries. MIP imaging also reviewed. All CT scans at [facility] use at least one of these dose optimization techniques: automated exposure control; mA and/or kV adjustment per patient size (includes targeted exams where dose is matched to clinical indication); or iterative reconstruction. CONTRAST: Omnipaque 350; 95 mL IV. DLP: 1844.5 mGy.cm COMPARISON: 11/26/2019 Suboptimal evaluation of the pulmonary arteries due to poor injection timing and body habitus. Study is inadequate to an to exclude pulmonary emboli despite several attempts at adequate injection. Pulmonary artery size is normal to slightly enlarged. Normal thoracic aorta. No RIGHT heart strain. Lungs are clear. No pneumonia. No pericardial or pleural effusions. Upper abdomen is negative for any abnormality. No osteoblastic or osteolytic disease. CT/CT angio chest PE protcl [id number] IMPRESSION: Suboptimal opacification of pulmonary arteries. Pulmonary emboli cannot be excluded on this examination. No RIGHT heart strain. No pneumonia. Dictated By:Minna Venegas DO Signed By:Minna Venegas DOSigned Date/Time:03/03/20 1626 DD/ 1558 EKG Data^: EKG 1: Interpretation: EKG obtained 03 March 2020 at 1401 interpreted by me on same date at 1401. Sinus tach rate 113 with underlying artifact. I was in the room while this was being performed we tried repositioning the patient as well as the leads which did not change the artifact. Normal ME interval. Discharge Plan Discharge Patient Disposition: Home Clinical Impression: Chest pain Qualifiers: Chest pain type: unspecified Qualified Code(s): R07.9 - Chest pain, unspecified Condition: Stable Prescriptions: No Action aripiprazole [Abilify] 2 mg tablet 4 mg PO BEDTIME RF: 0 albuterol sulfate [Ventolin HFA] 90 mcg/actuation HFA aerosol inhaler 2 puff INHALATION QID PRN (Reason: Shortness Of Breath) RF: 0 acetaminophen [Tylenol 8 Hour] 650 mg tablet extended release 650 mg PO Q8H PRN (Reason: Mild Pain (Scale Score 1-4)) RF: 0 ferrous sulfate 325 mg (65 mg iron) tablet 325 mg PO BID RF: 0 omeprazole 20 mg capsule,delayed release(DR/EC) 20 mg PO DAILY 30 Days Qty: 30 RF: 3 chlorthalidone 25 mg tablet 25 mg PO DAILY 30 Days Qty: 30 RF: 4 potassium chloride 10 mEq capsule, extended release 10 meq PO DAILY 30 Days Qty: 30 RF: 4 quetiapine 300 mg tablet 300 mg PO BEDTIME RF: 0 metformin 500 mg tablet 500 mg PO DAILY RF: 0 metoprolol tartrate 50 mg tablet 100 mg PO BID RF: 0 Mirena 20 mcg/24 hours (5 yrs) 52 mg intrauterine device 1 device INTRAUTERI .every 5 years Qty: 1 RF: 0 isosorbide mononitrate 20 mg tablet See Rx Instructions .ROUTE .COMPLEX Qty: 120 RF: 0 amlodipine 5 mg tablet 5 mg PO DAILY Qty: 30 RF: 3 alprazolam [Xanax] 2 mg Tablet 2 mg PO TID RF: 0 desvenlafaxine 100 mg Tablet Extended Release 24 Hr 100 mg PO DAILY RF: 0 desipramine 75 mg Tablet 150 mg PO DAILY RF: 0 cholecalciferol (vitamin D3) 1,250 mcg (50,000 unit) capsule 1,250 mcg PO Q7D RF: 0 Eliquis DVT-PE Treat 30D Start 5 mg (74 tabs) tablets,dose pack See Rx Instructions .ROUTE .COMPLEX Qty: 74 RF: 0 Referrals: Christa Chew APN [Primary Care Provider] - Patient Instructions: Chest Pain (ED) Activity Restrictions/Additional Instructions: Keep your appointment with Dr. Anderson on 03/12/2020. Tylenol as needed for pain. Return to the ER if acutely worse or more short of breath and you think you need to be evaluated, we are happy to reevaluate you. Coding Level of Care Code ED Auto Job Estimator for Marci Fwd Exam Comprehensive
--- NOTE | 2020-03-03 13:54 | ECG_ITS ---
[facility] Test Date: 2020-03-03 Pat Name: Heladio Branch Department: Room: Gender: Female Director Transition: : 1975 Requested By: Michelle Calderon Order Number: [id number] Cordoba MD: Dayanna Suh M.D. Measurements Intervals [place] Rate: 113 P: 33 DE: 165 QRS: 22 QRSD: 96 T: 59 QT: 321 QTc: 442 Interpretive Statements SINUS TACHYCARDIA Compared to ECG 01/15/2020 14:31:54 Sinus rhythm no longer present T-wave abnormality no longer present Electronically Signed On 03-03-2020 14:25:16 CDT by Dayanna Suh M.D. [id number]
--- NOTE | 2020-03-03 14:05 | CT_ITS ---
WS: [id number] CT CHEST ANGIOGRAPHY WITH REFORMATS HISTORY: sharp cp, hx of PE TECHNIQUE: Contiguous axial images are obtained through the chest during arterial injection of intrav enous contrast. Images are reconstructed to evaluate the pulmonary arteries. MIP imaging also reviewe d. All CT scans at [facility] use at least one of these dose optimization techniques: aut omated exposure control; mA and/or kV adjustment per patient size (includes targeted exams where dose is matched to clinical indication); or iterative reconstruction. CONTRAST: Omnipaque 350; 95 mL IV. DLP: 1844.5 mGy.cm COMPARISON: 11/26/2019 Suboptimal evaluation of the pulmonary arteries due to poor injection timing and body habitus. Study is inadequate to an to exclude pulmonary emboli despite several attempts at adequate injection. Pulmo nary artery size is normal to slightly enlarged. Normal thoracic aorta. No RIGHT heart strain. Lungs are clear. No pneumonia. No pericardial or pleural effusions. Upper abdomen is negative for any abnormality. No osteoblastic or osteolytic disease. CT/CT angio chest PE protcl [id number] IMPRESSION: Suboptimal opacification of pulmonary arteries. Pulmonary emboli cannot be excl uded on this examination. No RIGHT heart strain. No pneumonia.
[2020-03-03 14:17] VITALS: BP 129/92; PULSE 112; RESP 21; TEMP 36.9; O2SAT 98
[2020-03-03 14:29] LABS: Basophils % 0.2 %; Hemoglobin 13.4 g/dL (11.5-15.3); Lymphocytes # 1.8 10^3/uL (0.8-4.8); Lymphocytes % 29.8 %; Mean Corpuscular HGB Conc 31.9 g/dL (30.0-36.0); Mean Corpuscular Hemoglobin 28.6 pg (28.0-34.0); Mean Corpuscular Volume 89.7 fL (81-99); Monocytes # 0.4 10^3/uL (0.2-0.9); Monocytes % 7.2 %; Neutrophils # 3.75 10^3/uL (1.8-7.7); Neutrophils % 62.5 %; Nucleated Red Blood Cells % 0 %; Platelet Count 276 10^3/cmm (130-400); Red Blood Count 4.68 10^6/uL (4.1-5.3); Red Cell Distribution Width 14.4 % (12.1-15.1)
[2020-03-03 14:56] LABS: Anion Gap 16.5 (5-19); Blood Urea Nitrogen 8 mg/dL (6-20); Calcium 9.3 mg/dL (8.5-10.5); Carbon Dioxide 26 mmol/L (22-29); Chloride 95 mmol/L (98-107); Glomerular Filtration Rate 60.8 mL/min (90-130); Glucose 215 mg/dL (65-115); Osmolality Calculated 280 mOsm/kg (285-295); Potassium 3.5 mmol/L (3.5-5.1); Sodium 134 mmol/L (136-145)
[2020-03-03 15:04] VITALS: BP 119/74; PULSE 82; RESP 22; O2SAT 94
--- NOTE | 2020-03-03 15:25 | PC.NURSE ---
Patient c/o everyone thinks I'm a head case they belittle me - This nurse encouraged patient to understand need for other hospital records to keep from repeating parts of workup not needed and to look for current c/o in different manor- patient also encouraged to improve diet, and increase activity slowlly to improve health and life experience- patient calmer states pain 11/26-
[2020-03-03 15:45] LABS: INR 0.91 (0.8-1.2)
[2020-03-03] MEDS: iohexol 350 mg/mL 100 mL Btl IV ×2 (15:56→15:57)
[2020-03-03 15:57] VITALS: BP 142/88; PULSE 102; RESP 24; O2SAT 97
[2020-03-03 16:48] VITALS: BP 130/99; PULSE 108; RESP 24; TEMP 36.7
[2020-03-03 17:20] VITALS: BP 130/90; PULSE 106; RESP 24; TEMP 36.7; O2SAT 98
== END 2020-03-03 17:20 | disposition home or self-care (01) ==
PROVIDERS: Emergency Provider Emergency Medicine; PCP Nurse Practitioner Family
DX: R07.9 Chest pain, unspecified (principal); Z79.01 Long term (current) use of anticoagulants; Z87.891 Personal history of nicotine dependence; J44.9 Chronic obstructive pulmonary disease, unspecified; I10 Essential (primary) hypertension; Z86.73 Personal history of transient ischemic attack (TIA), and cerebral infarction without residual deficits
CPT/HCPCS: 12345; 36415; 71275; 80048; 85025; 85610; 93005; 99282; 99283; Q9967

== ENCOUNTER 2020-03-17 19:24 | Emergency (ER) | payer MEDICARE, MEDICAID, SELFPAY ==
[2020-03-17] VITALS (7 sets, daily range): BP systolic 116–154; BP diastolic 71–98; PULSE 88–96; RESP 16–20; TEMP 36.6; O2SAT 95–99; BMI 56.1
--- NOTE | 2020-03-17 19:42 | W.ED.ABDPA2 ---
HPI - Abdominal Pain General: Chief Complaint: Abdominal Pain Stated Complaint: ABD PAIN Time Seen by Provider: 03/17/20 19:29 Source: patient and EMS Mode of arrival: EMS Limitations: no limitations History of Present Illness: HPI narrative: 44-year-old female states she has had vaginal bleeding over the last month after having a Mirena placed. She states that she has an appoint with Dr. Mensah on Monday but had increased bleeding and pain today. States her pain is sharp in nature and in her lower abdomen. States she is going through multiple pads. Denies any worsening or improving factors. Associated Symptoms: Denies chills and fever(s) Related Data: Date of Last Menstrual Period: 10/21/19 Review of Systems Const: Denies: fever(s), chills, body aches or change in appetite Eyes: Denies: blurry vision or eye discomfort ENMT: Denies: throat pain or dental pain Card: Denies: chest pain Resp: Denies: dyspnea GI: Reports: abdominal pain : Reports: vaginal bleeding Musc: Denies: neck pain or back pain Skin/Breast: Denies: rash Neuro: Denies: headache(s) Psych: Denies: depression Ander/Lymph: Denies: easy bruising All/Imm: Denies: urticaria PFSH ED PFSH: Medical History Body mass index (BMI) 45.0-49.9, adult Not motivated to lose weight Chronic constipation Controlled with medications followed by her primary care provider COPD (chronic obstructive pulmonary disease) Diagnosed in 2013 and is controlled with medication Depression Diagnosed at the age of 23 and has been on medication since then. She follows up with Dr. Benitez a psychiatrist and as well as therapy in [place]. She currently denies suicidal/homicidal ideation. Essential (primary) hypertension Diagnosed in 2019 and she follows up with Dr. Anderson and cardiology. Gastro-esophageal reflux disease without esophagitis Controlled with medication. H/O deep venous thrombosis Reports having a DVT in 2019 and states her warfarin dose was increased after this. She follows up with Dr. Crespo -had second DVT in 11/2019 and was taken off warfarin and is now on eliquis Obstructive sleep apnea Personal history of pulmonary embolism (~2012) States that she had a PE in 2012 and has been on warfarin since then. She had evaluation performed by Dr. Crespo which was negative TIA (transient ischemic attack) Reports having had a TIA in 2019. Denies any neurological deficits. Followed by her primary care provider. Surgical History Status post conization of cervix Office LEEP procedure performed by Dr. Zelaya in 2005 for MARY-2 on Pap smear. 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 Status post knee surgery 2018-open knee surgery for torn ACL Status post left breast lumpectomy Patient reports having had 3 lumpectomies of her left breast in 1999, 2007 and 2009 for benign lesions. Family History Mother Hypertension Heart disease Grandmother Hypertension maternal and paternal Breast cancer maternal, diagnosed at age 43 Colon cancer maternal, diagnosed at age 63 Father Hypertension Grandfather Hypertension maternal and paternal Heart disease maternal Denies family history of Ovarian cancer Diabetes Uterine cancer Thyroid condition Stroke Social History Smoking and tobacco status: former smoker Second hand smoke exposure: Yes Alcohol intake: current Other details last substance use: last used 2013 per patient Lives independently: Yes Housing: House Marital status: Single Number of children: 0 service: No History of recent travel: No Female Reproductive History: Date of last menstrual period: 10/21/19 Physical Exam Const: COMMON NORMALS: no acute distress, patient oriented x3 and healthy appearing HENMT: COMMON NORMALS: normocephalic and atraumatic HEAD & SCALP: normocephalic and atraumatic Eye: COMMON NORMALS: Equal, round and reactive pupils present and EOMs intact bilaterally PUPIL: Yes Equal, round and reactive pupils present Neck/C-Spine: COMMON NORMALS: full ROM and supple Chest: COMMONS NORMALS: normal inspection of the chest and normal palpation of entire chest wall Resp: COMMON NORMALS: normal respiratory effort, No retractions, No use of accessory muscles and clear to auscultation bilaterally AUSCULTATION: clear to auscultation bilaterally Cardio: COMMON NORMALS: regular rate, regular rhythm and No murmurs present (Cardio) RATE: regular rate RHYTHM: regular rhythm GI: COMMON NORMALS: Normal to inspection, nondistended, normoactive bowel sounds present, Soft to palpation, non-tender and no masses PALPATION: Yes Soft to palpation : OTHER: Small amount of blood in vaginal canal. No cervicitis Mirena string was noted. Extremity: COMMON NORMALS: normal to inspection and full ROM Neuro: COMMON NORMALS: patient oriented x3, moves all extremities and no focal motor deficits Psych: COMMON NORMALS: mental status grossly normal, Normal thought process present and cooperative THOUGHT PROCESS: Normal thought process present Skin: COMMON NORMALS: no rashes or lesions noted and no wounds GENERAL SKIN EXAM: no rashes or lesions noted Course Vital Signs: Vital signs: Vital Signs Temperature 97.8 F 03/17/20 19:27 Pulse Rate 92 03/17/20 20:56 Respiratory Rate 16 03/17/20 20:56 Blood Pressure 116/71 03/17/20 20:56 Pulse Oximetry 95 03/17/20 20:56 MDM - Abdominal Pain MDM Narrative: Medical decision making narrative: Heladio presents here with abdominal pain along with vaginal bleeding. She is concerned it could be her Mirena. Pelvic exam here showed minimal amount of blood no signs of infection. Her white count here is normal and blood counts normal as well. Patient CT scan showed no acute findings. We will place her on pain meds and she is to follow-up with her OB as scheduled on Monday and return if worsening. Lab Data: Labs: Lab Results 03/17/20 03/17/20 03/17/20 Range/Units 19:36 19:36 19:36 WBC 6.1 (4.0-10.0) 10^3/ uL RBC 5.03 (4.1-5.3) 10^6/u L Hgb 14.2 (11.5-15.3) g/dL Hct 43.7 (37.0-47.0) % MCV 86.9 (81-99) fL MCH 28.2 (28.0-34.0) pg MCHC 32.5 (30.0-36.0) g/dL RDW 14.2 (12.1-15.1) % Plt Count 281 (130-400) 10^3/c mm MPV 10.9 H (7.4-10.4) fL Neut % (Auto) 52.2 % Lymph % (Auto) 37.4 % [place] % (Auto) 10.2 % Eos % (Auto) 0.0 % Baso % (Auto) 0.0 % Neut # (Auto) 3.18 (1.8-7.7) 10^3/u L Lymph # (Auto) 2.3 (0.8-4.8) 10^3/u L [place] # (Auto) 0.6 (0.2-0.9) 10^3/u L Eos # (Auto) 0.0 (0.0-0.8) 10^3/u L Baso # (Auto) 0.0 (0.0-0.1) 10^3/u L Nucleated RBC % (a uto) 0 % Nucleated RBCs # 0.0 /100WBC PT 13.10 (12.1-14.9) SECO NDS INR 0.96 (0.8-1.2) Sodium 136 (136-145) mmol/L Potassium 3.3 L (3.5-5.1) mmol/L Chloride 91 L (98-107) mmol/L Carbon Dioxide 29 (22-29) mmol/L Anion Gap 19.3 H (5-19) BUN 9 (6-20) mg/dL Creatinine 1.4 H (0.5-0.9) mg/dL GFR Calculation 41.2 L (90-130) mL/min Glucose 139 H (65-115) mg/dL Calculated Osmolal ity 283 L (285-295) mOsm/k g Calcium 10.1 (8.5-10.5) mg/dL Total Bilirubin 0.3 (0.15-1.2) mg/dL AST 34 H (0-32) U/L ALT 51 H (0-33) U/L Alkaline Phosphata se 88 (35-105) IU/L Total Protein 7.6 (6.6-8.7) g/dL Albumin 4.1 (3.5-5.2) g/dL Globulin 3.5 (1.3-4.6) g/dL Lipase 65 H (13-60) U/L HCG, Qual (Negative) Urine Color (Yellow) Urine Appearance (CLEAR) Urine pH (5-7) Ur Specific Gravit y (1.005-1.030) Urine Protein (Negative) Urine Glucose (UA) (Normal) Urine Ketones (Negative) Urine Blood (Negative) Urine Nitrate (Negative) Urine Bilirubin (Negative) Urine Urobilinogen (Negative) mg/dL Ur Leukocyte [place] ase (Negative) Urine RBC (0-2) /hpf Urine WBC (0-5) /hpf Ur Squamous Epith Cells (0-5) /hpf Amorphous Sediment Urine Bacteria (NONE) /hpf Urine Mucus /hpf 03/17/20 03/17/20 Range/Units 19:36 19:48 WBC (4.0-10.0) 10^3/ uL RBC (4.1-5.3) 10^6/u L Hgb (11.5-15.3) g/dL Hct (37.0-47.0) % MCV (81-99) fL MCH (28.0-34.0) pg MCHC (30.0-36.0) g/dL RDW (12.1-15.1) % Plt Count (130-400) 10^3/c mm MPV (7.4-10.4) fL Neut % (Auto) % Lymph % (Auto) % [place] % (Auto) % Eos % (Auto) % Baso % (Auto) % Neut # (Auto) (1.8-7.7) 10^3/u L Lymph # (Auto) (0.8-4.8) 10^3/u L [place] # (Auto) (0.2-0.9) 10^3/u L Eos # (Auto) (0.0-0.8) 10^3/u L Baso # (Auto) (0.0-0.1) 10^3/u L Nucleated RBC % (a uto) % Nucleated RBCs # /100WBC PT (12.1-14.9) SECO NDS INR (0.8-1.2) Sodium (136-145) mmol/L Potassium (3.5-5.1) mmol/L Chloride (98-107) mmol/L Carbon Dioxide (22-29) mmol/L Anion Gap (5-19) BUN (6-20) mg/dL Creatinine (0.5-0.9) mg/dL GFR Calculation (90-130) mL/min Glucose (65-115) mg/dL Calculated Osmolal ity (285-295) mOsm/k g Calcium (8.5-10.5) mg/dL Total Bilirubin (0.15-1.2) mg/dL AST (0-32) U/L ALT (0-33) U/L Alkaline Phosphata se (35-105) IU/L Total Protein (6.6-8.7) g/dL Albumin (3.5-5.2) g/dL Globulin (1.3-4.6) g/dL Lipase (13-60) U/L HCG, Qual Negative (Negative) Urine Color Yellow (Yellow) Urine Appearance Sl hazy (CLEAR) Urine pH 6 (5-7) Ur Specific Gravit y 1.020 (1.005-1.030) Urine Protein Neg (Negative) Urine Glucose (UA) Norm (Normal) Urine Ketones Negative (Negative) Urine Blood 3+ H (Negative) Urine Nitrate Negative (Negative) Urine Bilirubin Neg (Negative) Urine Urobilinogen Neg (Negative) mg/dL Ur Leukocyte [place] ase Negative (Negative) Urine RBC 5-10 H (0-2) /hpf Urine WBC 15-25 H (0-5) /hpf Ur Squamous Epith Cells 0-4 H (0-5) /hpf Amorphous Sediment Not Reportable Urine Bacteria 2+ H (NONE) /hpf Urine Mucus 1+ /hpf Imaging Data ^: CT Abd/Pel: Radiologist's impression: [place] [address] CT Scan Report Signed Patient: Heladio Branch Unit #: [id number] : 1975 Age/Sex: 44 / F ADM Date: 03/17/20 Loc: ER Room/Bed: Attending Dr: Ordering Provider/Ordering MD: Milagros Pat MD Date of Service: 03/17/20 Procedure(s): CT abdomen pelvis w con* [id number] Accession Number(s): [id number] Report Number: [id number] PROCEDURE INFORMATION: Exam: CT Abdomen And Pelvis With Contrast Exam date and time: 03/17/2020 8:55 PM Age: 44 years old Clinical indication: Other: Bleeding x3wks; Patient HX: Abd pain TECHNIQUE: Imaging protocol: Computed tomography of the abdomen and pelvis with intravenous contrast. Radiation optimization: All CT scans at this facility use at least one of these dose optimization techniques: automated exposure control; mA and/or kV adjustment per patient size (includes targeted exams where dose is matched to clinical indication); or iterative reconstruction. Contrast material: [id number]; Contrast volume: 95 ml; Contrast route: INTRAVENOUS (IV); COMPARISON: CT angio chest w abd pel w con 11/16/2019 1:08 AM RADIATION DOSE METRICS: Total DLP (mGy-cm): 1926.59 FINDINGS: The lung bases are clear. The visualized bony structures are unremarkable. There is fatty infiltration of the liver. There is no liver mass. There is no intrahepatic biliary dilatation. No gallstones are seen within the gallbladder. The pancreas is unremarkable. The spleen is unremarkable. There is no adrenal mass. There is no hydronephrosis. There are no renal calculi. There is no perinephric stranding. There is no renal mass. The aorta is normal in caliber. The IVC is normal in caliber. There is no retroperitoneal adenopathy. There is no mesenteric adenopathy. The stomach is unremarkable. The small bowel loops in the upper abdomen are nondistended with no bowel wall thickening. The colonic structures within the upper abdomen are normal in caliber with no bowel wall thickening. Scattered colonic diverticuli are present. Within the pelvis: A normal appendix is seen within the right lower quadrant. The bladder is nondistended. An IUD is seen within the uterus. There are no adnexal masses. There is no free fluid within the pelvis. There is no inguinal adenopathy. There is no pelvic adenopathy. The rectosigmoid colon is unremarkable. CT/CT abdomen pelvis w con* [id number] IMPRESSION: 1. Fatty infiltration of the liver. 2. No evidence for bowel obstruction or bowel wall thickening. 3. The scattered colonic diverticuli with no evidence for acute diverticulitis. 4. No significant change since the old exam. Discharge Plan Discharge Patient Disposition: Home Clinical Impression: Abnormal uterine bleeding (AUB) Abdominal pain Qualifiers: Abdominal location: unspecified location Qualified Code(s): R10.9 - Unspecified abdominal pain Condition: Stable Prescriptions: [place] 5-325 mg tablet 1 tab PO Q6H PRN (Reason: pain) Qty: 14 RF: 0 ondansetron 4 mg tablet,disintegrating 4 mg PO Q6H PRN (Reason: nausea and vomiting) Qty: 14 RF: 0 No Action aripiprazole [Abilify] 2 mg tablet 4 mg PO BEDTIME RF: 0 albuterol sulfate [Ventolin HFA] 90 mcg/actuation HFA aerosol inhaler 2 puff INHALATION QID PRN (Reason: Shortness Of Breath) RF: 0 acetaminophen [Tylenol 8 Hour] 650 mg tablet extended release 650 mg PO Q8H PRN (Reason: Mild Pain (Scale Score 1-4)) RF: 0 ferrous sulfate 325 mg (65 mg iron) tablet 325 mg PO BID RF: 0 omeprazole 20 mg capsule,delayed release(DR/EC) 20 mg PO DAILY 30 Days Qty: 30 RF: 3 chlorthalidone 25 mg tablet 25 mg PO DAILY 30 Days Qty: 30 RF: 4 potassium chloride 10 mEq capsule, extended release 10 meq PO DAILY 30 Days Qty: 30 RF: 4 quetiapine 300 mg tablet 300 mg PO BEDTIME RF: 0 metformin 500 mg tablet 500 mg PO DAILY RF: 0 metoprolol tartrate 50 mg tablet 100 mg PO BID RF: 0 Mirena 20 mcg/24 hours (5 yrs) 52 mg intrauterine device 1 device INTRAUTERI .every 5 years Qty: 1 RF: 0 isosorbide mononitrate 20 mg tablet See Rx Instructions .ROUTE .COMPLEX Qty: 120 RF: 0 amlodipine 5 mg tablet 5 mg PO DAILY Qty: 30 RF: 3 alprazolam [Xanax] 2 mg Tablet 2 mg PO TID RF: 0 desvenlafaxine 100 mg Tablet Extended Release 24 Hr 100 mg PO DAILY RF: 0 desipramine 75 mg Tablet 150 mg PO DAILY RF: 0 cholecalciferol (vitamin D3) 1,250 mcg (50,000 unit) capsule 1,250 mcg PO Q7D RF: 0 hydrocodone-acetaminophen 5-325 mg tablet 1 tab PO Q4H PRN (Reason: Pain) RF: 0 glipizide 5 mg tablet 5 mg PO BID RF: 0 Eliquis 5 mg tablet 5 mg PO BID RF: 0 Discharge Orders: Discharge Order (Routine); Ordered 03/17/20 Ordered By: Milagros Pat Referrals: Christa Chew APN [Primary Care Provider] - Eugene Medrano MD [Physician] - 1-3 days Discharge Diet: Advance as tolerated Discharge Activity: Resume usual activity Patient Instructions: Abdominal Pain (ED) Coding Level of Care Code ED [employer] Supervisor for Chg Fwd Exam Comprehensive
[2020-03-17 19:43] LABS: Hematocrit 43.7 % (37.0-47.0); Hemoglobin 14.2 g/dL (11.5-15.3); Lymphocytes # 2.3 10^3/uL (0.8-4.8); Lymphocytes % 37.4 %; Mean Corpuscular HGB Conc 32.5 g/dL (30.0-36.0); Mean Corpuscular Hemoglobin 28.2 pg (28.0-34.0); Mean Corpuscular Volume 86.9 fL (81-99); Mean Platelet Volume 10.9 fL (7.4-10.4); Monocytes # 0.6 10^3/uL (0.2-0.9); Monocytes % 10.2 %; Neutrophils # 3.18 10^3/uL (1.8-7.7); Neutrophils % 52.2 %; Nucleated Red Blood Cells % 0 %; Platelet Count 281 10^3/cmm (130-400); Red Blood Count 5.03 10^6/uL (4.1-5.3); Red Cell Distribution Width 14.2 % (12.1-15.1); White Blood Count 6.1 10^3/uL (4.0-10.0)
[2020-03-17 19:57] LABS: INR 0.96 (0.8-1.2)
[2020-03-17] MEDS: morphine 4 mg/mL SDV 1 mL IVP (20:03)
[2020-03-17] MEDS: ondansetron 2 mg/ML SDV 2 mL 4 MG IVP (20:04)
[2020-03-17 20:05] LABS: HCG, Serum Qual Negative (Negative)
[2020-03-17 20:10] LABS: Alanine Aminotransferase 51 U/L (0-33); Albumin Level 4.1 g/dL (3.5-5.2); Alkaline Phosphatase 88 IU/L (35-105); Anion Gap 19.3 (5-19); Aspartate Amino Transferase 34 U/L (0-32); Blood Urea Nitrogen 9 mg/dL (6-20); Calcium 10.1 mg/dL (8.5-10.5); Carbon Dioxide 29 mmol/L (22-29); Chloride 91 mmol/L (98-107); Globulin 3.5 g/dL (1.3-4.6); Glomerular Filtration Rate 41.2 mL/min (90-130); Glucose 139 mg/dL (65-115); Lipase 65 U/L (13-60); Osmolality Calculated 283 mOsm/kg (285-295); Potassium 3.3 mmol/L (3.5-5.1); Sodium 136 mmol/L (136-145); Total Bilirubin 0.3 mg/dL (0.15-1.2); Total Protein 7.6 g/dL (6.6-8.7)
[2020-03-17 20:22] LABS: Urine Appearance SL Hazy (CLEAR); Urine Color Yellow (Yellow)
[2020-03-17 20:23] LABS: Add Urine Microscopic? YES; Bilirubin Urine Neg (Negative); Blood Urine 3+ (Negative); Glucose Urine UA Norm (Normal); Ketones Urine Negative (Negative); Leukocyte Esterase Urine Negative (Negative); Nitrate Urine Negative (Negative); Protein Urine Neg (Negative); Urobilinogen Urine Neg (Negative); pH Urine 6 (5-7)
[2020-03-17 20:27] LABS: Add Urine Culture? Yes; Bacteria Urine 2+ /hpf; Mucus Urine 1+ /hpf; Squamous Epithelial Cell Urine 0-4 /hpf (0-5); WBC Urine 15-25 /hpf (0-5)
--- NOTE | 2020-03-17 20:31 | CTR_ITS ---
PROCEDURE INFORMATION: Exam: CT Abdomen And Pelvis With Contrast Exam date and time: 03/17/2020 8:55 PM Age: 44 years old Clinical indication: Other: Bleeding x3wks; Patient HX: Abd pain TECHNIQUE: Imaging protocol: Computed tomography of the abdomen and pelvis with intravenous contrast. Radiation optimization: All CT scans at this facility use at least one of these dose optimization techniques: automated exposure control; mA and/or kV adjustment per patient size (includes targeted exams where dose is matched to clinical indication); or iterative reconstruction. Contrast material: [id number]; Contrast volume: 95 ml; Contrast route: INTRAVENOUS (IV); COMPARISON: CT angio chest w abd pel w con 11/16/2019 1:08 AM RADIATION DOSE METRICS: Total DLP (mGy-cm): 1926.59 FINDINGS: The lung bases are clear. The visualized bony structures are unremarkable. There is fatty infiltration of the liver. There is no liver mass. There is no intrahepatic biliary dilatation. No gallstones are seen within the gallbladder. The pancreas is unremarkable. The spleen is unremarkable. There is no adrenal mass. There is no hydronephrosis. There are no renal calculi. There is no perinephric stranding. There is no renal mass. The aorta is normal in caliber. The IVC is normal in caliber. There is no retroperitoneal adenopathy. There is no mesenteric adenopathy. The stomach is unremarkable. The small bowel loops in the upper abdomen are nondistended with no bowel wall thickening. The colonic structures within the upper abdomen are normal in caliber with no bowel wall thickening. Scattered colonic diverticuli are present. Within the pelvis: A normal appendix is seen within the right lower quadrant. The bladder is nondistended. An IUD is seen within the uterus. There are no adnexal masses. There is no free fluid within the pelvis. There is no inguinal adenopathy. There is no pelvic adenopathy. The rectosigmoid colon is unremarkable. CT/CT abdomen pelvis w con* [id number] IMPRESSION: 1. Fatty infiltration of the liver. 2. No evidence for bowel obstruction or bowel wall thickening. 3. The scattered colonic diverticuli with no evidence for acute diverticulitis. 4. No significant change since the old exam. Radiation Dose CTDIVOL = (mGy): DLP = 1926.59 (mGy-cm)
--- NOTE | 2020-03-17 20:33 | PC.NURSE ---
Assist with vaginal exam per Dr Pat patient tolerated well-
[2020-03-17] MEDS: HYDROmorphone 1 mg/mL INJ 1 mL IVP (20:38)
[2020-03-17] MEDS: iohexol 300 mg/mL 100 mL Btl IV (21:04)
[2020-03-17] MEDS: HYDROcodone-acetaminophen 5-325 mg Tablet 1 TAB PO (21:50)
--- NOTE | 2020-03-20 11:17 | PC.NURSE ---
Patient called and notified of the urine culture results. Patient also updated that she needs to be placed on Macrobid 100 mg PO BID x 7 days. Prescription called to patients preferred pharmacy which [facility].
== END 2020-03-17 22:06 | disposition home or self-care (01) ==
PROVIDERS: Emergency Provider Emergency Medicine; PCP Nurse Practitioner Family
DX: R10.9 Unspecified abdominal pain (principal); N93.9 Abnormal uterine and vaginal bleeding, unspecified; Z79.01 Long term (current) use of anticoagulants; J44.9 Chronic obstructive pulmonary disease, unspecified; I10 Essential (primary) hypertension; Z86.73 Personal history of transient ischemic attack (TIA), and cerebral infarction without residual deficits; Z87.891 Personal history of nicotine dependence
CPT/HCPCS: 12345; 74177; 80053; 81001; 83690; 84703; 85025; 85610; 87077; 87086; 87186; 96374; 96375; 99283; 99284; J1170; J2270; J2405; Q9967

== ENCOUNTER → 2020-03-19 08:08 | Outpatient (BNVA) | payer MEDICARE, MEDICAID, SELFPAY | PROVIDERS: PCP Nurse Practitioner Family; Visit Provider Obstetrics & Gynecology | DX: Z30.431 Encounter for routine checking of intrauterine contraceptive device (principal); N83.8 Other noninflammatory disorders of ovary, fallopian tube and broad ligament; D25.9 Leiomyoma of uterus, unspecified | CPT/HCPCS: 76830 ==

== ENCOUNTER 2020-03-26 14:27 | Emergency (ER) | payer MEDICARE, MEDICAID, SELFPAY ==
--- NOTE | 2020-03-26 14:48 | US_ITS ---
WS: [id number] PELVIC ULTRASOUND REASON FOR VISIT: bleeding w/p IUD plcmt, ? uterine perforation TECHNIQUE: Grayscale and Doppler transabdominal and transvaginal pelvic ultrasound. FINDINGS: No free fluid in the pelvis. Uterus measures 9.24 cm x 4.7 cm x 4.2 cm. There are no uterine masses. There is an elongated echogenic structure in the endometrial cavity which show shadowing on the trans verse images. This is felt to represent an IUD. The right ovary could not be identified. Left ovary measures 3.19 x 2.43 x 1.94 cm. There is a complex cystic mass involving the left ovary. I t is septated and has thickening of the septa. The mass is approximately 2.42 x 2.13 cm US/US pelvic with transvaginal IMPRESSION: Intrauterine contraceptive device in place, normally positioned. Somewhat concerning atypical appearing cyst of the left ovary.
--- NOTE | 2020-03-26 14:48 | W.ED.FEMALGU ---
Documented by User: GT Hill 03/26/20 17:31 HPI - Female Genitourinary General: Chief complaint: Urogenital-Female Stated complaint: VAGINAL BLEEDING Time Seen by Provider: 03/26/20 14:28 History of Present Illness: HPI Narrative: 44-year-old female patient presents to the emergency department via EMS. She reports IUD placement on 02/21/2020, reports vaginal bleeding that started on 02/26/2020. She has splints evaluated by her primary care physician along with her ANNEALER, Dr. Remy -she passed a blood clot today, called her INSTALLATION COORDINATOR who advised her to be seen in the ED due to possible uterine perforation. She is also complaining of urinary frequency. She states changing rita-pad every hour, she denies fever or chills MD elicited complaint: vaginal bleeding, pelvic pain and back pain (Lower) Pertinent past history: IUD and diabetes Location of symptoms: low back Severity: mild Quality of pain: cramping Consistency: intermittent Vaginal discharge: none Vaginal bleeding: moderate, clots and # pads per hour (1) Relieving factors: none Associated symptoms: Reports vaginal bleeding; Deny abdominal pain, headache(s) or nausea Treatment prior to arrival: none Sexual activity: Yes and New Sexual Partners Patient : No Date of Last Menstrual Period: 10/21/19 Review of Systems General: Reports: 10 or more systems reviewed and unremarkable except in HPI and below Const: Denies: fever(s), chills or diaphoresis Eyes: Denies: blurry vision or eye redness ENMT: Denies: throat pain, dental pain or disequilibrium Card: Denies: chest pain, palpitations or irregular heart rhythm Resp: Denies: dyspnea, productive cough, non-productive cough or wheezing GI: Denies: abdominal pain, nausea, vomiting or pain on defecation : Reports: urinary frequency, urinary urgency and vaginal bleeding; Denies: difficulty voiding or dysuria Musc: Reports: back pain (Lower); Denies: neck pain or extremity pain Skin/Breast: Denies: rash or pruritus Neuro: Denies: headache(s), weakness in extremities or behavioral changes Ander/Lymph: Denies: easy bruising PFS ED PFSH: Medical History Body mass index (BMI) 45.0-49.9, adult Not motivated to lose weight Chronic constipation Controlled with medications followed by her primary care provider COPD (chronic obstructive pulmonary disease) Diagnosed in 2013 and is controlled with medication Depression Diagnosed at the age of 23 and has been on medication since then. She follows up with Dr. Benitez a psychiatrist and as well as therapy in [place]. She currently denies suicidal/homicidal ideation. Essential (primary) hypertension Diagnosed in 2019 and she follows up with Dr. Anderson and cardiology. Gastro-esophageal reflux disease without esophagitis Controlled with medication. H/O deep venous thrombosis Reports having a DVT in 2019 and states her warfarin dose was increased after this. She follows up with Dr. Crespo -had second DVT in 11/2019 and was taken off warfarin and is now on eliquis Obstructive sleep apnea Personal history of pulmonary embolism (~2012) States that she had a PE in 2012 and has been on warfarin since then. She had evaluation performed by Dr. Crespo which was negative TIA (transient ischemic attack) Reports having had a TIA in 2019. Denies any neurological deficits. Followed by her primary care provider. Surgical History Status post conization of cervix Office LEEP procedure performed by Dr. Zelaya in 2005 for MARY-2 on Pap smear. 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 Status post knee surgery 2018-open knee surgery for torn ACL Status post left breast lumpectomy Patient reports having had 3 lumpectomies of her left breast in 1999, 2007 and 2009 for benign lesions. Family History Mother Hypertension Heart disease Grandmother Hypertension maternal and paternal Breast cancer maternal, diagnosed at age 43 Colon cancer maternal, diagnosed at age 63 Father Hypertension Grandfather Hypertension maternal and paternal Heart disease maternal Denies family history of Ovarian cancer Diabetes Uterine cancer Thyroid condition Stroke Social History Smoking and tobacco status: former smoker Second hand smoke exposure: Yes Alcohol intake: current Other details last substance use: last used 2013 per patient Lives independently: Yes Housing: House Marital status: Single Number of children: 0 service: No History of recent travel: No Female Reproductive History: Date of last menstrual period: 10/21/19 Physical Exam Const: COMMON NORMALS: no acute distress, patient oriented x3, healthy appearing and alert GENERAL APPEARANCE: cooperative, comfortable and well hydrated HENMT: COMMON NORMALS: normocephalic, Normal external nose present and moist oral mucous membranes HEAD & SCALP: normocephalic NOSE: Normal external nose present Eye: COMMON NORMALS: Equal, round and reactive pupils present and EOMs intact bilaterally GENERAL EYE: appearance normal, both eyes and all related structures PUPIL: Yes Equal, round and reactive pupils present Neck/C-Spine: COMMON NORMALS: full ROM and no lymphadenopathy GENERAL: Yes normal visual inspection and Yes trachea midline CERVICAL SPINE: Yes cervical ROM normal Lymph: LYMPHATIC: no lymphadenopathy noted Chest: COMMONS NORMALS: normal inspection of the chest Resp: COMMON NORMALS: normal respiratory effort and clear to auscultation bilaterally AUSCULTATION: clear to auscultation bilaterally Cardio: COMMON NORMALS: regular rhythm, S1 normal heart sound present and S2 normal heart sound present RHYTHM: regular rhythm HEART SOUNDS: S1 normal heart sound present and S2 normal heart sound present GI: COMMON NORMALS: Soft to palpation and non-tender INSPECTION: Yes normal to inspection PALPATION: Yes Soft to palpation : COMMON NORMALS: Yes no CVA tenderness BLADDER/KIDNEY EXAM: Yes no CVA tenderness EXTERNAL FEMALE EXAM: Yes normal appearance of the urethra SPECULUM EXAM - VAGINA: No lesion, Yes vaginal bleeding Amount: small/minimal, No mass and No tenderness SPECULUM EXAM - CERVIX: Yes Cervical os closed and No Tissue present in the cervical os BIMANUAL EXAM - VAGINA & UTERUS: Yes Uterine tenderness BIMANUAL EXAM - ADNEXA, OTHER: Yes mobile and Yes normal OB/EXTERNAL & SPECULUM: vaginal bleeding Back/Pelvis: COMMON NORMALS: no CVA tenderness and thoracic and lumbar spine normal to inspection Extremity: COMMON NORMALS: normal to inspection and capillary refill normal Neuro: COMMON NORMALS: patient oriented x3 and no focal motor deficits SENSORIUM/ORIENTATION: Yes alert Psych: COMMON NORMALS: mental status grossly normal, Normal thought process present and cooperative ACTIVITY/MOTOR BEHAVIOR: Yes appropriate eye contact THOUGHT PROCESS: Normal thought process present Skin: COMMON NORMALS: no rashes or lesions noted and turgor normal GENERAL SKIN EXAM: no rashes or lesions noted and turgor normal Course ED course: 44-year-old female patient presents to the emergency department with complaints of vaginal bleeding status post IUD placement on 02/21/2020, she has been evaluated in the emergency department for this. Pelvic ultrasound revealed complex left ovarian mass, patient reports has follow-up with Dr. Remy on Monday. Pelvic ultrasound was completed secondary to uterine bleeding to ensure uterine perforation had not occurred post IUD placement. Potassium was found to be low, this was replaced in the emergency department, she did have an anxiety episode during her stay, her 2 mg Xanax dose at noon was missed. She returned to baseline, anxiety subsided, all occurred prior to pelvic exam. Urinalysis pending, plan to discharge home with follow-up with Dr. Remy -patient agrees to return to the emergency department if shortness of breath, increased vaginal bleeding, worsening lower abdominal pain occurs. Urinalysis pending, transfer of care to [facility], if urinalysis reveals urinary tract infection, will place on antibiotics. Vital Signs: Vital signs: Vital Signs Temperature 98.0 F 03/26/20 14:54 Pulse Rate 90 03/26/20 18:38 Respiratory Rate 18 03/26/20 18:38 Blood Pressure 123/66 03/26/20 18:38 Pulse Oximetry 95 03/26/20 18:38 MDM - Female Lab Data: Labs: Lab Results 03/26/20 03/26/20 03/26/20 Range/Units 16:16 16:16 16:16 WBC 5.9 (4.0-10.0) 10^3/ uL RBC 4.98 (4.1-5.3) 10^6/u L Hgb 14.2 (11.5-15.3) g/dL Hct 43.5 (37.0-47.0) % MCV 87.3 (81-99) fL MCH 28.5 (28.0-34.0) pg MCHC 32.6 (30.0-36.0) g/dL RDW 13.7 (12.1-15.1) % Plt Count 311 (130-400) 10^3/c mm MPV 10.7 H (7.4-10.4) fL Neut % (Auto) 58.6 % Lymph % (Auto) 31.1 % [place] % (Auto) 9.8 % Eos % (Auto) 0.2 % Baso % (Auto) 0.0 % Neut # (Auto) 3.48 (1.8-7.7) 10^3/u L Lymph # (Auto) 1.9 (0.8-4.8) 10^3/u L [place] # (Auto) 0.6 (0.2-0.9) 10^3/u L Eos # (Auto) 0.0 (0.0-0.8) 10^3/u L Baso # (Auto) 0.0 (0.0-0.1) 10^3/u L Nucleated RBC % (a uto) 0 % Nucleated RBCs # 0.0 /100WBC Sodium 138 (136-145) mmol/L Potassium 3.1 L (3.5-5.1) mmol/L Chloride 93 L (98-107) mmol/L Carbon Dioxide 29 (22-29) mmol/L Anion Gap 19.1 H (5-19) BUN 14 (6-20) mg/dL Creatinine 1.3 H (0.5-0.9) mg/dL GFR Calculation 44.9 L (90-130) mL/min Glucose 154 H (65-115) mg/dL POC Glucose (70-110) mg/dL Calculated Osmolal ity 290 (285-295) mOsm/k g Calcium 10.2 (8.5-10.5) mg/dL Total Bilirubin 0.3 (0.15-1.2) mg/dL AST 33 H (0-32) U/L ALT 53 H (0-33) U/L Alkaline Phosphata se 88 (35-105) IU/L Total Protein 8.0 (6.6-8.7) g/dL Albumin 4.5 (3.5-5.2) g/dL Globulin 3.5 (1.3-4.6) g/dL HCG, Qual Negative (Negative) Urine Color (Yellow) Urine Appearance (CLEAR) Urine pH (5-7) Ur Specific Gravit y (1.005-1.030) Urine Protein (Negative) Urine Glucose (UA) (Normal) Urine Ketones (Negative) Urine Blood (Negative) Urine Nitrate (Negative) Urine Bilirubin (Negative) Urine Urobilinogen (Negative) mg/dL Ur Leukocyte Ana Paula ase (Negative) Urine RBC (0-2) /hpf Urine WBC (0-5) /hpf Ur Squamous Epith Cells (0-5) /hpf Amorphous Sediment Urine Bacteria (NONE) /hpf Urine Mucus /hpf 03/26/20 03/26/20 Range/Units 16:47 17:26 WBC (4.0-10.0) 10^3/ uL RBC (4.1-5.3) 10^6/u L Hgb (11.5-15.3) g/dL Hct (37.0-47.0) % MCV (81-99) fL MCH (28.0-34.0) pg MCHC (30.0-36.0) g/dL RDW (12.1-15.1) % Plt Count (130-400) 10^3/c mm MPV (7.4-10.4) fL Neut % (Auto) % Lymph % (Auto) % [place] % (Auto) % Eos % (Auto) % Baso % (Auto) % Neut # (Auto) (1.8-7.7) 10^3/u L Lymph # (Auto) (0.8-4.8) 10^3/u L [place] # (Auto) (0.2-0.9) 10^3/u L Eos # (Auto) (0.0-0.8) 10^3/u L Baso # (Auto) (0.0-0.1) 10^3/u L Nucleated RBC % (a uto) % Nucleated RBCs # /100WBC Sodium (136-145) mmol/L Potassium (3.5-5.1) mmol/L Chloride (98-107) mmol/L Carbon Dioxide (22-29) mmol/L Anion Gap (5-19) BUN (6-20) mg/dL Creatinine (0.5-0.9) mg/dL GFR Calculation (90-130) mL/min Glucose (65-115) mg/dL POC Glucose 153 (70-110) mg/dL Calculated Osmolal ity (285-295) mOsm/k g Calcium (8.5-10.5) mg/dL Total Bilirubin (0.15-1.2) mg/dL AST (0-32) U/L ALT (0-33) U/L Alkaline Phosphata se (35-105) IU/L Total Protein (6.6-8.7) g/dL Albumin (3.5-5.2) g/dL Globulin (1.3-4.6) g/dL HCG, Qual (Negative) Urine Color Brown (Yellow) Urine Appearance Hazy A (CLEAR) Urine pH 6.5 (5-7) Ur Specific Gravit y 1.010 (1.005-1.030) Urine Protein Neg (Negative) Urine Glucose (UA) Norm (Normal) Urine Ketones Negative (Negative) Urine Blood 3+ H (Negative) Urine Nitrate Negative (Negative) Urine Bilirubin Neg (Negative) Urine Urobilinogen Neg (Negative) mg/dL Ur Leukocyte Ana Paula ase Negative (Negative) Urine RBC 10-15 H (0-2) /hpf Urine WBC 0-4 H (0-5) /hpf Ur Squamous Epith Cells 15-25 H (0-5) /hpf Amorphous Sediment Not Reportable Urine Bacteria 1+ H (NONE) /hpf Urine Mucus 2+ /hpf Imaging Data: US: Radiologist's impression: [place] [address] Ultrasound Report Signed Patient: Heladio Branch Unit #: [id number] : [id number] Age/Sex: 44 / F ADM Date: 03/26/20 Loc: ER Room/Bed: Attending Dr: Ordering Provider/Ordering MD: Jenny Ford Date of Service: 03/26/20 Procedure(s): US pelvic with transvaginal Accession Number(s): [id number] Report Number: [id number] WS: [id number] PELVIC ULTRASOUND REASON FOR VISIT: bleeding w/p IUD plcmt, ? uterine perforation TECHNIQUE: Grayscale and Doppler transabdominal and transvaginal pelvic ultrasound. FINDINGS: No free fluid in the pelvis. Uterus measures 9.24 cm x 4.7 cm x 4.2 cm. There are no uterine masses. There is an elongated echogenic structure in the endometrial cavity which show shadowing on the transverse images. This is felt to represent an IUD. The right ovary could not be identified. Left ovary measures 3.19 x 2.43 x 1.94 cm. There is a complex cystic mass involving the left ovary. It is septated and has thickening of the septa. The mass is approximately 2.42 x 2.13 cm US/ pelvic with transvaginal IMPRESSION: Intrauterine contraceptive device in place, normally positioned. Somewhat concerning atypical appearing cyst of the left ovary. Dictated By: Victor Manuel Krueger Jr, MD Signed By: Victor Manuel Krueger Jr, MD Signed Date/Time: 03/26/201619 DD/ 08 Discharge Plan Discharge Patient Disposition: Home Clinical Impression: Vaginal bleeding, abnormal, Pelvic pain in female, Hypokalemia Ovarian cyst Qualifiers: Laterality: left Qualified Code(s): N83.202 - Unspecified ovarian cyst, left side UTI (urinary tract infection) Qualifiers: Urinary tract infection type: acute cystitis Hematuria presence: with hematuria Qualified Code(s): N30.01 - Acute cystitis with hematuria Condition: Stable Prescriptions: New cefdinir 300 mg capsule 300 mg PO BID 10 Days Qty: 20 RF: 0 Changed potassium chloride 10 mEq capsule, extended release 10 meq PO BIDWM 30 Days Qty: 30 RF: 4 No Action aripiprazole [Abilify] 2 mg tablet 4 mg PO BEDTIME RF: 0 albuterol sulfate [Ventolin HFA] 90 mcg/actuation HFA aerosol inhaler 2 puff INHALATION QID PRN (Reason: Shortness Of Breath) RF: 0 acetaminophen [Tylenol 8 Hour] 650 mg tablet extended release 650 mg PO Q8H PRN (Reason: Mild Pain (Scale Score 1-4)) RF: 0 ferrous sulfate 325 mg (65 mg iron) tablet 325 mg PO BID RF: 0 omeprazole 20 mg capsule,delayed release(DR/EC) 20 mg PO DAILY 30 Days Qty: 30 RF: 3 chlorthalidone 25 mg tablet 25 mg PO DAILY 30 Days Qty: 30 RF: 4 quetiapine 300 mg tablet 300 mg PO BEDTIME RF: 0 metformin 500 mg tablet 500 mg PO DAILY RF: 0 metoprolol tartrate 50 mg tablet 100 mg PO BID RF: 0 Mirena 20 mcg/24 hours (5 yrs) 52 mg intrauterine device 1 device INTRAUTERI .every 5 years Qty: 1 RF: 0 isosorbide mononitrate 20 mg tablet See Rx Instructions .ROUTE .COMPLEX Qty: 120 RF: 0 amlodipine 5 mg tablet 5 mg PO DAILY Qty: 30 RF: 3 alprazolam [Xanax] 2 mg Tablet 2 mg PO TID RF: 0 desvenlafaxine 100 mg Tablet Extended Release 24 Hr 100 mg PO DAILY RF: 0 desipramine 75 mg Tablet 150 mg PO DAILY RF: 0 cholecalciferol (vitamin D3) 1,250 mcg (50,000 unit) capsule 1,250 mcg PO Q7D RF: 0 hydrocodone-acetaminophen 5-325 mg tablet 1 tab PO Q4H PRN (Reason: Pain) RF: 0 glipizide 5 mg tablet 5 mg PO BID RF: 0 Eliquis 5 mg tablet 5 mg PO BID RF: 0 [place] 5-325 mg tablet 1 tab PO Q6H PRN (Reason: pain) Qty: 14 RF: 0 ondansetron 4 mg tablet,disintegrating 4 mg PO Q6H PRN (Reason: nausea and vomiting) Qty: 14 RF: 0 Discharge Orders: Discharge Order (Routine); Ordered 03/26/20 Ordered By: Jenny Ford Referrals: Christa Chew APN [Primary Care Provider] - Discharge Diet: Usual diet Discharge Activity: Resume usual activity Patient Instructions: Menstruation (ED), Ovarian Cyst (ED), Urinary Tract Infection in Women (ED), Pelvic Pain Activity Restrictions/Additional Instructions: Continue follow-up with Dr. Remy as scheduled on Monday Return to the emergency department if you develop fever, worsening abdominal pain/pelvic pain, increased vaginal bleeding, lightheadedness or feel as if you are going to pass out. Potassium was found to be low today, you will need a recheck of potassium level by your primary care provider in 4 to 5 days. Increase potassium to 10 mEq by mouth twice daily. Discharge Date/Time: 03/26/20 18:38 Sign Out Sign Out Data: Patient Sign Out occurred on 03/26/20 at 18:08. Patient's care was discussed, and care was transferred from to MARGARET James. Coding Level of Care Code ED Landscape Architect And Planner for Chg Fwd Exam Comprehensive Documented by User: MARGARET James 03/26/20 19:08 HPI - Female Genitourinary General: Chief complaint: Urogenital-Female Stated complaint: VAGINAL BLEEDING Time Seen by Provider: 03/26/20 14:28 Review of Systems : Reports: dysuria and urinary frequency PFSH ED PFSH: Medical History Body mass index (BMI) 45.0-49.9, adult Not motivated to lose weight Chronic constipation Controlled with medications followed by her primary care provider COPD (chronic obstructive pulmonary disease) Diagnosed in 2013 and is controlled with medication Depression Diagnosed at the age of 23 and has been on medication since then. She follows up with Dr. Benitez a psychiatrist and as well as therapy in [place]. She currently denies suicidal/homicidal ideation. Essential (primary) hypertension Diagnosed in 2018 and she follows up with Dr. Anderson and cardiology. Gastro-esophageal reflux disease without esophagitis Controlled with medication. H/O deep venous thrombosis Reports having a DVT in 2019 and states her warfarin dose was increased after this. She follows up with Dr. Crespo -had second DVT in 11/2019 and was taken off warfarin and is now on eliquis Obstructive sleep apnea Personal history of pulmonary embolism (~2012) States that she had a PE in 2012 and has been on warfarin since then. She had evaluation performed by Dr. Crespo which was negative TIA (transient ischemic attack) Reports having had a TIA in 2019. Denies any neurological deficits. Followed by her primary care provider. Surgical History Status post conization of cervix Office LEEP procedure performed by Dr. Zelaya in 2005 for MARY-2 on Pap smear. 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 Status post knee surgery 2018-open knee surgery for torn ACL Status post left breast lumpectomy Patient reports having had 3 lumpectomies of her left breast in 1999, 2007 and 2009 for benign lesions. Family History Mother Hypertension Heart disease Grandmother Hypertension maternal and paternal Breast cancer maternal, diagnosed at age 43 Colon cancer maternal, diagnosed at age 63 Father Hypertension Grandfather Hypertension maternal and paternal Heart disease maternal Denies family history of Ovarian cancer Diabetes Uterine cancer Thyroid condition Stroke Social History Smoking and tobacco status: former smoker Second hand smoke exposure: Yes Alcohol intake: current Other details last substance use: last used 2013 per patient Lives independently: Yes Housing: House Marital status: Single Number of children: 0 service: No History of recent travel: No Course Vital Signs: Vital signs: Vital Signs Temperature 98.0 F 03/26/20 14:54 Pulse Rate 90 03/26/20 18:38 Respiratory Rate 18 03/26/20 18:38 Blood Pressure 123/66 03/26/20 18:38 Pulse Oximetry 95 03/26/20 18:38 MDM - Female MDM Narrative: Medical decision making narrative: Patient care was handed over to me by Jenny Ford. She had all discharge paperwork in place and was pending a UA. Patient has symptoms of dysuria and increased urine frequency. UA came back and showed some bacteria, white blood cells and red blood cells. Patient was diagnosed with a UTI and put on cefdinir. She was discharged and and told to follow-up with Dr. Remy at [facility] this coming Monday. Return to ED precautions given. Patient understood and agreed with plan. Lab Data: Attestation: I reviewed the patient's lab results. Labs: Lab Results 03/26/20 03/26/20 03/26/20 Range/Units 16:16 16:16 16:16 WBC 5.9 (4.0-10.0) 10^3/ uL RBC 4.98 (4.1-5.3) 10^6/u L Hgb 14.2 (11.5-15.3) g/dL Hct 43.5 (37.0-47.0) % MCV 87.3 (81-99) fL MCH 28.5 (28.0-34.0) pg MCHC 32.6 (30.0-36.0) g/dL RDW 13.7 (12.1-15.1) % Plt Count 311 (130-400) 10^3/c mm MPV 10.7 H (7.4-10.4) fL Neut % (Auto) 58.6 % Lymph % (Auto) 31.1 % [place] % (Auto) 9.8 % Eos % (Auto) 0.2 % Baso % (Auto) 0.0 % Neut # (Auto) 3.48 (1.8-7.7) 10^3/u L Lymph # (Auto) 1.9 (0.8-4.8) 10^3/u L [place] # (Auto) 0.6 (0.2-0.9) 10^3/u L Eos # (Auto) 0.0 (0.0-0.8) 10^3/u L Baso # (Auto) 0.0 (0.0-0.1) 10^3/u L Nucleated RBC % (a uto) 0 % Nucleated RBCs # 0.0 /100WBC Sodium 138 (136-145) mmol/L Potassium 3.1 L (3.5-5.1) mmol/L Chloride 93 L (98-107) mmol/L Carbon Dioxide 29 (22-29) mmol/L Anion Gap 19.1 H (5-19) BUN 14 (6-20) mg/dL Creatinine 1.3 H (0.5-0.9) mg/dL GFR Calculation 44.9 L (90-130) mL/min Glucose 154 H (65-115) mg/dL POC Glucose (70-110) mg/dL Calculated Osmolal ity 290 (285-295) mOsm/k g Calcium 10.2 (8.5-10.5) mg/dL Total Bilirubin 0.3 (0.15-1.2) mg/dL AST 33 H (0-32) U/L ALT 53 H (0-33) U/L Alkaline Phosphata se 88 (35-105) IU/L Total Protein 8.0 (6.6-8.7) g/dL Albumin 4.5 (3.5-5.2) g/dL Globulin 3.5 (1.3-4.6) g/dL HCG, Qual Negative (Negative) Urine Color (Yellow) Urine Appearance (CLEAR) Urine pH (5-7) Ur Specific Gravit y (1.005-1.030) Urine Protein (Negative) Urine Glucose (UA) (Normal) Urine Ketones (Negative) Urine Blood (Negative) Urine Nitrate (Negative) Urine Bilirubin (Negative) Urine Urobilinogen (Negative) mg/dL Ur Leukocyte Ana Paula ase (Negative) Urine RBC (0-2) /hpf Urine WBC (0-5) /hpf Ur Squamous Epith Cells (0-5) /hpf Amorphous Sediment Urine Bacteria (NONE) /hpf Urine Mucus /hpf 03/26/20 03/26/20 Range/Units 16:47 17:26 WBC (4.0-10.0) 10^3/ uL RBC (4.1-5.3) 10^6/u L Hgb (11.5-15.3) g/dL Hct (37.0-47.0) % MCV (81-99) fL MCH (28.0-34.0) pg MCHC (30.0-36.0) g/dL RDW (12.1-15.1) % Plt Count (130-400) 10^3/c mm MPV (7.4-10.4) fL Neut % (Auto) % Lymph % (Auto) % [place] % (Auto) % Eos % (Auto) % Baso % (Auto) % Neut # (Auto) (1.8-7.7) 10^3/u L Lymph # (Auto) (0.8-4.8) 10^3/u L [place] # (Auto) (0.2-0.9) 10^3/u L Eos # (Auto) (0.0-0.8) 10^3/u L Baso # (Auto) (0.0-0.1) 10^3/u L Nucleated RBC % (a uto) % Nucleated RBCs # /100WBC Sodium (136-145) mmol/L Potassium (3.5-5.1) mmol/L Chloride (98-107) mmol/L Carbon Dioxide (22-29) mmol/L Anion Gap (5-19) BUN (6-20) mg/dL Creatinine (0.5-0.9) mg/dL GFR Calculation (90-130) mL/min Glucose (65-115) mg/dL POC Glucose 153 (70-110) mg/dL Calculated Osmolal ity (285-295) mOsm/k g Calcium (8.5-10.5) mg/dL Total Bilirubin (0.15-1.2) mg/dL AST (0-32) U/L ALT (0-33) U/L Alkaline Phosphata se (35-105) IU/L Total Protein (6.6-8.7) g/dL Albumin (3.5-5.2) g/dL Globulin (1.3-4.6) g/dL HCG, Qual (Negative) Urine Color Brown (Yellow) Urine Appearance Hazy A (CLEAR) Urine pH 6.5 (5-7) Ur Specific Gravit y 1.010 (1.005-1.030) Urine Protein Neg (Negative) Urine Glucose (UA) Norm (Normal) Urine Ketones Negative (Negative) Urine Blood 3+ H (Negative) Urine Nitrate Negative (Negative) Urine Bilirubin Neg (Negative) Urine Urobilinogen Neg (Negative) mg/dL Ur Leukocyte Ana Paula ase Negative (Negative) Urine RBC 10-15 H (0-2) /hpf Urine WBC 0-4 H (0-5) /hpf Ur Squamous Epith Cells 15-25 H (0-5) /hpf Amorphous Sediment Not Reportable Urine Bacteria 1+ H (NONE) /hpf Urine Mucus 2+ /hpf Discharge Plan Discharge Patient Disposition: Home Clinical Impression: Vaginal bleeding, abnormal, Pelvic pain in female, Hypokalemia Ovarian cyst Qualifiers: Laterality: left Qualified Code(s): N83.202 - Unspecified ovarian cyst, left side UTI (urinary tract infection) Qualifiers: Urinary tract infection type: acute cystitis Hematuria presence: with hematuria Qualified Code(s): N30.01 - Acute cystitis with hematuria Condition: Stable Prescriptions: New cefdinir 300 mg capsule 300 mg PO BID 10 Days Qty: 20 RF: 0 Changed potassium chloride 10 mEq capsule, extended release 10 meq PO BIDWM 30 Days Qty: 30 RF: 4 No Action aripiprazole [Abilify] 2 mg tablet 4 mg PO BEDTIME RF: 0 albuterol sulfate [Ventolin HFA] 90 mcg/actuation HFA aerosol inhaler 2 puff INHALATION QID PRN (Reason: Shortness Of Breath) RF: 0 acetaminophen [Tylenol 8 Hour] 650 mg tablet extended release 650 mg PO Q8H PRN (Reason: Mild Pain (Scale Score 1-4)) RF: 0 ferrous sulfate 325 mg (65 mg iron) tablet 325 mg PO BID RF: 0 omeprazole 20 mg capsule,delayed release(DR/EC) 20 mg PO DAILY 30 Days Qty: 30 RF: 3 chlorthalidone 25 mg tablet 25 mg PO DAILY 30 Days Qty: 30 RF: 4 quetiapine 300 mg tablet 300 mg PO BEDTIME RF: 0 metformin 500 mg tablet 500 mg PO DAILY RF: 0 metoprolol tartrate 50 mg tablet 100 mg PO BID RF: 0 Mirena 20 mcg/24 hours (5 yrs) 52 mg intrauterine device 1 device INTRAUTERI .every 5 years Qty: 1 RF: 0 isosorbide mononitrate 20 mg tablet See Rx Instructions .ROUTE .COMPLEX Qty: 120 RF: 0 amlodipine 5 mg tablet 5 mg PO DAILY Qty: 30 RF: 3 alprazolam [Xanax] 2 mg Tablet 2 mg PO TID RF: 0 desvenlafaxine 100 mg Tablet Extended Release 24 Hr 100 mg PO DAILY RF: 0 desipramine 75 mg Tablet 150 mg PO DAILY RF: 0 cholecalciferol (vitamin D3) 1,250 mcg (50,000 unit) capsule 1,250 mcg PO Q7D RF: 0 hydrocodone-acetaminophen 5-325 mg tablet 1 tab PO Q4H PRN (Reason: Pain) RF: 0 glipizide 5 mg tablet 5 mg PO BID RF: 0 Eliquis 5 mg tablet 5 mg PO BID RF: 0 [place] 5-325 mg tablet 1 tab PO Q6H PRN (Reason: pain) Qty: 14 RF: 0 ondansetron 4 mg tablet,disintegrating 4 mg PO Q6H PRN (Reason: nausea and vomiting) Qty: 14 RF: 0 Discharge Orders: Discharge Order (Routine); Ordered 03/26/20 Ordered By: Jenny Ford Referrals: Christa Chew APN [Primary Care Provider] - Discharge Diet: Usual diet Discharge Activity: Resume usual activity Patient Instructions: Menstruation (ED), Ovarian Cyst (ED), Urinary Tract Infection in Women (ED), Pelvic Pain Activity Restrictions/Additional Instructions: Continue follow-up with Dr. Remy as scheduled on Monday Return to the emergency department if you develop fever, worsening abdominal pain/pelvic pain, increased vaginal bleeding, lightheadedness or feel as if you are going to pass out. Potassium was found to be low today, you will need a recheck of potassium level by your primary care provider in 4 to 5 days. Increase potassium to 10 mEq by mouth twice daily. Discharge Date/Time: 03/26/20 18:38 Sign Out Sign Out Data: Patient Sign Out occurred on 03/26/20 at 18:08. Patient's care was discussed, and care was transferred from to MARGARET James. Coding Level of Care Code ED Landscape Architect And Planner for Chg Fwd Exam Comprehensive
[2020-03-26 14:54] VITALS: BP 137/97; PULSE 98; RESP 16; TEMP 36.7; O2SAT 98; BMI 56.2
[2020-03-26 16:27] LABS: Eosinophils % 0.2 %; Hematocrit 43.5 % (37.0-47.0); Hemoglobin 14.2 g/dL (11.5-15.3); Lymphocytes # 1.9 10^3/uL (0.8-4.8); Lymphocytes % 31.1 %; Mean Corpuscular HGB Conc 32.6 g/dL (30.0-36.0); Mean Corpuscular Hemoglobin 28.5 pg (28.0-34.0); Mean Corpuscular Volume 87.3 fL (81-99); Mean Platelet Volume 10.7 fL (7.4-10.4); Monocytes # 0.6 10^3/uL (0.2-0.9); Monocytes % 9.8 %; Neutrophils # 3.48 10^3/uL (1.8-7.7); Neutrophils % 58.6 %; Nucleated Red Blood Cells % 0 %; Platelet Count 311 10^3/cmm (130-400); Red Blood Count 4.98 10^6/uL (4.1-5.3); Red Cell Distribution Width 13.7 % (12.1-15.1); White Blood Count 5.9 10^3/uL (4.0-10.0)
[2020-03-26 16:36] LABS: HCG, Serum Qual Negative (Negative)
[2020-03-26 16:48] LABS: Alanine Aminotransferase 53 U/L (0-33); Albumin Level 4.5 g/dL (3.5-5.2); Alkaline Phosphatase 88 IU/L (35-105); Anion Gap 19.1 (5-19); Aspartate Amino Transferase 33 U/L (0-32); Blood Urea Nitrogen 14 mg/dL (6-20); Calcium 10.2 mg/dL (8.5-10.5); Carbon Dioxide 29 mmol/L (22-29); Chloride 93 mmol/L (98-107); Globulin 3.5 g/dL (1.3-4.6); Glomerular Filtration Rate 44.9 mL/min (90-130); Glucose 154 mg/dL (65-115); Osmolality Calculated 290 mOsm/kg (285-295); Potassium 3.1 mmol/L (3.5-5.1); Sodium 138 mmol/L (136-145); Total Bilirubin 0.3 mg/dL (0.15-1.2)
[2020-03-26 16:50] LABS: Glucose Point of Care 153 mg/dL (70-110)
--- NOTE | 2020-03-26 16:54 | PC.NURSE ---
EKG done at 1650 and shown to ER doctor
[2020-03-26] MEDS: potassium chloride ER 10 mEq Tablet 40 MEQ PO (17:35)
[2020-03-26 18:14] LABS: Bilirubin Urine Neg (Negative); Blood Urine 3+ (Negative); Glucose Urine UA Norm (Normal); Ketones Urine Negative (Negative); Nitrate Urine Negative (Negative); Protein Urine Neg (Negative); Urine Appearance Hazy (CLEAR); Urine Color Brown (Yellow); pH Urine 6.5 (5-7)
[2020-03-26 18:15] LABS: Add Urine Microscopic? YES; Leukocyte Esterase Urine Negative (Negative); Urobilinogen Urine Neg (Negative)
[2020-03-26 18:25] LABS: Add Urine Culture? No; Bacteria Urine 1+ /hpf; Mucus Urine 2+ /hpf; Squamous Epithelial Cell Urine 15-25 /hpf (0-5); WBC Urine 0-4 /hpf (0-5)
[2020-03-26 18:38] VITALS: BP 123/66; PULSE 90; RESP 18; O2SAT 95
== END 2020-03-26 18:38 | disposition home or self-care (01) ==
PROVIDERS: Nurse Practitioner Family; Emergency Provider Physician Assistant; PCP Nurse Practitioner Family
DX: N83.202 Unspecified ovarian cyst, left side (principal); N30.01 Acute cystitis with hematuria; N93.9 Abnormal uterine and vaginal bleeding, unspecified; E87.6 Hypokalemia; Z79.01 Long term (current) use of anticoagulants; Z87.891 Personal history of nicotine dependence; J44.9 Chronic obstructive pulmonary disease, unspecified; I10 Essential (primary) hypertension; Z86.73 Personal history of transient ischemic attack (TIA), and cerebral infarction without residual deficits
CPT/HCPCS: 12345; 36415; 36416; 76830; 76856; 80053; 81001; 82962; 84703; 85025; 99282; 99283

== ENCOUNTER 2020-04-22 08:05 | Outpatient (CLI) | payer MEDICARE, MEDICAID, SELFPAY ==
--- NOTE | 2020-04-22 08:23 | ECG_ITS ---
[facility] Test Date: 2020-04-22 Pat Name: Heladio Branch Department: Room: Gender: Female Desktop Support Consultant: Zora Philmont : 1975 Requested By: Kathy Anderson Order Number: [id number] Adalid MD: Kathy Anderson M.D. Interpretive Statements NAME OF STUDY: LEXISCAN SESTAMIBI STRESS TEST INDICATION: Chest Pain, PROCEDURE: At the baseline, the EKG revealed sinus tachycardia with a rate of [address]-T changes. The baseline blood pressure was 113/54 mm Hg with a heart rate of 118 beats/min. Lexiscan was infused over a period of 20 seconds. A total of 0.4 milligrams of Lexiscan was infused. The stress phase was continued for a total of 5 minutes. Heart rate at the end of the stress phase was 120 with a blood pressure 160/89. The EKG at the peak infusion revealed no significant changes. Sestamibi was injected 20 seconds after the Lexiscan infusion. Blood pressure at the end of the recovery phase was 149/96 with a heart rate of 117 per minute. CONCLUSION: 1. No significant EKG changes with the LexiScan infusion 2. No LexiScan induced chest pain or cardiac arrhythmia 3. Normal blood pressure and heart rate response 4. Sestamibi/sestamibi perfusion scan pending; see separate report. Electronically Signed On 04-27-2020 10:10:41 [employer] by Kathy Anderson M.D. [id number]
--- NOTE | 2020-04-22 08:24 | NMCV_ITS ---
NM alvaro perf SPECT r/s* [id number] Heladio Branch Age: 44 Gender: F : 1975 Exam Date: 04/22/2020 08:24 Ordering Phys: Kathy Anderson MD ([email or web address]) Technologist: LENO Zaidi Exam Location: [facility] Indications: SHORTNESS OF BREATH STRESS TEST [facility] IMAGE PROTOCOL Rest/Stress 1 Lexiscan Day Radiopharmaceutical Dose (mCi) Administration Site Administered by Rest: Tc-99m 10.8 IV LENO Kelly Sestamibi Stress:Tc-99m 32.7 IV LENO Kelly Sestamibi Rest: 22-Apr-2020 Discovery 630 Stress: 22-Apr-2020 Discovery 630 0.4mg Lexiscan. Images obtained in supine and prone position. SPECT RESULTS Technical Quality: Excellent Raw Data Analysis: Breast attenuation Image Corrections: No attenuation or motion correction applied Summed Stress Score: 0 Summed Rest Score: 0 Summed Difference Score: 0 PERFUSION FINDINGS Patchy areas of slightly decreased tracer uptake were noted in the anterior wall and inferior wall regions, with no significant reversibility. FUNCTIONAL RESULTS (calculated via Gated SPECT) Stress Image LV EF (%): 73 Stress EDV (mL):60 TID: 0.97 Stress ESV (mL):16 FUNCTIONAL FINDINGS: Segmental wall motion analysis revealing no gross wall motion normalities. IMPRESSIONS #1. Myocardial perfusion imaging revealing patchy areas of persistent decreased tracer uptake in anterior wall and inferior wall regions, suggestive of myocardial scarring versus attenuation artifact. #2. Normal LV ejection fraction 73%. #3. LV wall motion analysis revealing no gross wall motion normalities. #4. Normal LV volume. No significant coronary ischemia, based on the above findings. Dr Kathy Anderson MD FACC (Electronically Signed) Final Date: 22 April 2020 16:22 S
[2020-04-22 08:25] VITALS: BMI 53.8
[2020-04-22 10:02] VITALS: BP 160/89; PULSE 100
[2020-04-22] MEDS: regadenoson 0.4 Mg/5 ml Syringe IVP (10:09)
== END 2020-04-22 08:06 | disposition home or self-care (01) ==
LOC: CDL 08:05
PROVIDERS: PCP Nurse Practitioner Family; Visit Provider Internal Medicine Cardiovascular Disease
DX: R06.02 Shortness of breath (principal); R07.89 Other chest pain
CPT/HCPCS: 78452; 93017; A9500; J2785

== ENCOUNTER 2020-08-17 17:49 | Emergency (ER) | payer MEDICARE, MEDICAID, SELFPAY ==
[2020-08-17] VITALS (7 sets, daily range): BP systolic 116–143; BP diastolic 80–104; PULSE 76–127; RESP 15–22; TEMP 36.7; O2SAT 95–100; BMI 57.4
--- NOTE | 2020-08-17 18:01 | XRR_ITS ---
PROCEDURE INFORMATION: Exam: XR Chest Exam date and time: 08/17/2020 6:20 PM Age: 45 years old Clinical indication: Other: Altered mental status; Patient HX: Dizzy, ate mushrooms TECHNIQUE: Imaging protocol: XR of the chest Views: 1 view. COMPARISON: CR XR chest 1V portable [id number] 01/15/2020 2:33 PM FINDINGS: Lungs: Unremarkable. No consolidation. Pleural spaces: Unremarkable. No pleural effusion. No pneumothorax. Heart/Mediastinum: Unremarkable. No cardiomegaly. Bones/joints: Unremarkable. XR/XR chest 1V portable [id number] IMPRESSION: No acute findings.
--- NOTE | 2020-08-17 18:01 | CTR_ITS ---
PROCEDURE INFORMATION: Exam: CT Head Without Contrast Exam date and time: 08/17/2020 6:07 PM Age: 45 years old Clinical indication: Altered mental status/memory loss; Patient HX: Ate mushrooms TECHNIQUE: Imaging protocol: Computed tomography of the head without contrast. Radiation optimization: All CT scans at this facility use at least one of these dose optimization techniques: automated exposure control; mA and/or kV adjustment per patient size (includes targeted exams where dose is matched to clinical indication); or iterative reconstruction. COMPARISON: CT head wo con* [id number] 01/15/2020 3:13 PM RADIATION DOSE METRICS: Total DLP (mGy-cm): 1798.99 FINDINGS: Brain: Normal. No hemorrhage. Unremarkable white matter. No mass effect. Cerebral ventricles: No ventriculomegaly. Bones/joints: Unremarkable. No acute fracture. Paranasal sinuses: Visualized sinuses are unremarkable. No fluid levels. Mastoid air cells: Visualized mastoid air cells are well aerated. Soft tissues: Unremarkable. CT/CT head wo con* [id number] IMPRESSION: No acute intracranial abnormality. Radiation Dose CTDIVOL = (mGy): DLP = 1798.99 (mGy-cm)
--- NOTE | 2020-08-17 18:06 | ECG_ITS ---
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
[2020-08-17] MEDS: sodium chloride 0.9% 1,000 ML 999 ML IV (18:19)
[2020-08-17 18:34] LABS: Add Urine Microscopic? NO
[2020-08-17 18:36] LABS: Basophils % 0.1 %; Hematocrit 39.4 % (37.0-47.0); Hemoglobin 12.5 g/dL (11.5-15.3); Lymphocytes # 1.4 10^3/uL (0.8-4.8); Lymphocytes % 16.2 %; Mean Corpuscular HGB Conc 31.7 g/dL (30.0-36.0); Mean Corpuscular Hemoglobin 26.1 pg (28.0-34.0); Mean Corpuscular Volume 82.3 fL (81-99); Mean Platelet Volume 10.7 fL (7.4-10.4); Monocytes # 0.6 10^3/uL (0.2-0.9); Monocytes % 6.6 %; Neutrophils # 6.57 10^3/uL (1.8-7.7); Neutrophils % 76.5 %; Nucleated Red Blood Cells % 0 %; Platelet Count 331 10^3/cmm (130-400); Red Blood Count 4.79 10^6/uL (4.1-5.3); Red Cell Distribution Width 15.7 % (12.1-15.1); White Blood Count 8.6 10^3/uL (4.0-10.0)
[2020-08-17 18:47] LABS: Bilirubin Urine Neg (Negative); Blood Urine Neg (Negative); Glucose Urine UA Norm (Normal); Ketones Urine Negative (Negative); Leukocyte Esterase Urine Negative (Negative); Nitrate Urine Negative (Negative); Protein Urine Neg (Negative); Urine Appearance Clear (CLEAR); Urine Color Straw (Yellow); Urobilinogen Urine Norm (Negative); pH Urine 5 (5-7)
[2020-08-17 18:50] LABS: HCG, Serum Qual Negative (Negative)
[2020-08-17 18:52] LABS: Amphetamines Screen Urine Negative (Negative); Barbiturates Screen Urine Negative (Negative); Benzodiazepines Screen Urine Positive (Negative); Cocaine Screen Urine Negative (Negative); Opiate Screen Urine Negative (Negative); PCP Screen Urine Negative (Negative); THC Screen Urine Positive (Negative)
[2020-08-17 19:02] LABS: Lactate (Lactic Acid level) 2.6 mmol/L (0.5-2.2)
[2020-08-17 19:05] LABS: Alanine Aminotransferase 31 U/L (0-33); Alkaline Phosphatase 89 IU/L (35-105); Aspartate Amino Transferase 20 U/L (0-32); Blood Urea Nitrogen 10 mg/dL (6-20); Calcium 9.4 mg/dL (8.5-10.5); Carbon Dioxide 27 mmol/L (22-29); Chloride 94 mmol/L (98-107); Creatinine Clr Calc Pharmacy 107.1035; Glomerular Filtration Rate 60.5 mL/min (90-130); Glucose 187 mg/dL (65-115); Osmolality Calculated 284 mOsm/kg (285-295); Sodium 135 mmol/L (136-145); Total Bilirubin 0.3 mg/dL (0.15-1.2)
[2020-08-17 19:07] LABS: Alcohol Level < 10 mg/dL (0-10); Anion Gap 17.8 (5-19)
[2020-08-17 19:08] LABS: Potassium 3.8 mmol/L (3.5-5.1); Troponin(5th) Baseline 6 ng/L (0-10)
--- NOTE | 2020-08-17 20:06 | ECG_ITS ---
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
[2020-08-17 20:44] LABS: Troponin 5 2HR Delta 0 ABS# (0-10)
--- NOTE | 2020-08-17 23:21 | W.ED.AMS ---
Documented by User: Aroldo Ko MD 08/19/20 07:38 HPI - Altered Mental Status General: Chief Complaint: Altered Mental Status Stated Complaint: OVERDOSE Time Seen by Provider: 08/17/20 18:01 History of Present Illness: HPI narrative: The patient is a 45-year-old female who comes to the ER for an intentional overdose of illicit substances. She says she was not trying to hurt herself but she just got in the mail today illegal drugs from [place] by mail and took 2 bar of LSD, 10 mg of mushrooms, and 3 THC edibles today around 1500 hrs. She vomited at home. On arrival to the ED she is able to make contact and answer basic questions however she is intoxicated on multiple substances. IV fluids started and allowed her to rest. Vitals stable. MD complaint: altered mental status and intoxication Onset (ago): hour(s) (2) Time: 15:00 Severity: severe Context: drug abuse Associated symptoms: Reports visual hallucinations Review of Systems General: Reports: 10 or more systems reviewed and unremarkable except in HPI and below Const: Denies: fatigue Eyes: Reports: other (Visual hallucinations); Denies: change in vision, blurry vision or eye redness ENMT: Denies: throat pain, swelling of lips/tongue, ear or mastoid pain or nasal congestion Card: Denies: chest pain, palpitations, irregular heart rhythm, edema, dyspnea on exertion or orthopnea Resp: Denies: dyspnea, productive cough or non-productive cough GI: Denies: abdominal pain, diarrhea or GI cramping : Denies: flank pain, difficulty voiding, urinary frequency or urinary urgency Musc: Denies: neck pain, back pain, extremity pain, joint pain, joint redness, limited range of motion or muscle weakness Skin/Breast: Denies: rash, pruritus, erythema, skin pain or skin tenderness Neuro: Denies: headache(s), numbness in extremities, weakness in extremities, sensory changes, difficulty walking, dizziness, confusion or Slurred speech present Psych: Reports: visual hallucinations Endo: Denies: polyuria All/Imm: Denies: urticaria, throat swelling or tongue swelling [facility] ED PFSH: Medical History Atypical chest pain Body mass index (BMI) 45.0-49.9, adult Not motivated to lose weight Chronic constipation Controlled with medications followed by her primary care provider COPD (chronic obstructive pulmonary disease) Diagnosed in 2013 and is controlled with medication Depression Diagnosed at the age of 23 and has been on medication since then. She follows up with Dr. Benitez a psychiatrist and as well as therapy in [place]. She currently denies suicidal/homicidal ideation. Essential (primary) hypertension Diagnosed in 2019 and she follows up with Dr. Anderson and cardiology. Gastro-esophageal reflux disease without esophagitis Controlled with medication. H/O deep venous thrombosis Reports having a DVT in 2018 and states her warfarin dose was increased after this. She follows up with Dr. Crespo -had second DVT in 11/2019 and was taken off warfarin and is now on eliquis Obstructive sleep apnea Personal history of pulmonary embolism (~2012) States that she had a PE in 2012 and has been on warfarin since then. TIA (transient ischemic attack) Reports having had a TIA in 2018. Denies any neurological deficits. Followed by her primary care provider. Surgical History Status post conization of cervix Office LEEP procedure performed by Dr. Zelaya in 2005 for MARY-2 on Pap smear. 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 Status post knee surgery 2018-open knee surgery for torn ACL Status post left breast lumpectomy Patient reports having had 3 lumpectomies of her left breast in 1999, 2007 and 2009 for benign lesions. Family History Mother Hypertension Heart disease Grandmother Hypertension maternal and paternal Breast cancer maternal, diagnosed at age 43 Colon cancer maternal, diagnosed at age 63 Father Hypertension Grandfather Hypertension maternal and paternal Heart disease maternal Denies family history of Ovarian cancer Diabetes Uterine cancer Thyroid condition Stroke Social History Smoking and tobacco status: former smoker Second hand smoke exposure: Yes Alcohol intake: current Other details last substance use: last used 2013 per patient Lives independently: Yes Housing: House Marital status: Single Number of children: 0 service: No History of recent travel: No Female Reproductive History: Date of last menstrual period: 10/21/19 Physical Exam Narrative: EXAM NARRATIVE: The patient is intoxicated on multiple substances. Breathing well. Altered mental status with visual hallucinations. Mildly dilated pupils Const: COMMON NORMALS: alert ORIENTATION/CONSCIOUSNESS: Yes oriented to person HENMT: COMMON NORMALS: normocephalic, external ears normal and Normal external nose present HEAD & SCALP: normal to inspection and normocephalic NOSE: Normal external nose present EXTERNAL EAR: Yes external ears normal MOUTH: Normal oral and palatal mucosa present THROAT: posterior oropharynx normal Eye: COMMON NORMALS: Equal, round and reactive pupils present, EOMs intact bilaterally and conjunctivae normal VISUAL ACUITY: Yes acuity normal CONJUNCTIVA: Yes conjunctivae normal PUPIL: Yes Equal, round and reactive pupils present and Yes Dilated pupils bilaterally Neck/C-Spine: COMMON NORMALS: full ROM, no lymphadenopathy, no meningeal signs and no JVD GENERAL: Yes normal visual inspection Lymph: LYMPHATIC: no lymphadenopathy noted Chest: COMMONS NORMALS: normal inspection of the chest and normal palpation of entire chest wall Resp: COMMON NORMALS: normal respiratory effort, No retractions, No use of accessory muscles, clear to auscultation bilaterally and percussion normal EFFORT & INSPECTION: Yes able to speak in complete sentences AUSCULTATION: clear to auscultation bilaterally PERCUSSION: percussion normal Cardio: COMMON NORMALS: no JVD, regular rhythm, S1 normal heart sound present, S2 normal heart sound present and Peripheral pulses 2+ throughout RATE: tachycardic RHYTHM: regular rhythm HEART SOUNDS: S1 normal heart sound present and S2 normal heart sound present PERIPHERAL PULSES: Peripheral pulses 2+ throughout GI: COMMON NORMALS: Normal to inspection, nondistended, normoactive bowel sounds present, Soft to palpation, non-tender and no masses INSPECTION: Yes normal to inspection PALPATION: Yes Soft to palpation : COMMON NORMALS: Yes no CVA tenderness BLADDER/KIDNEY EXAM: Yes no CVA tenderness Back/Pelvis: COMMON NORMALS: no CVA tenderness, thoracic and lumbar spine normal to inspection, no thoracic nor lumbar tenderness and thoraco-lumbar ROM normal Extremity: COMMON NORMALS: normal to inspection, full ROM, capillary refill normal, no joint enlargement and no pedal edema GENERAL: Yes normal exam except as noted Neuro: COMMON NORMALS: CN's II-XII intact bilaterally, moves all extremities, no focal motor deficits, no sensory deficits noted and gait normal SENSORIUM/ORIENTATION: Yes alert, Yes oriented to person and Yes other (Confused about where she is) MENINGEAL SIGNS: Yes no meningeal signs SPEECH: speech normal GAIT: Yes Unable to assess gait MOTOR EXAM: 5/5 motor strength present throughout Skin: COMMON NORMALS: no rashes or lesions noted GENERAL SKIN EXAM: no rashes or lesions noted Urinary Catheter Management^: [place]: Cath Placed During This Visit: yes Urinary Catheter Date of Insertion: 08/17/20 Urinary Catheter Time of Insertion: 19:01 Course Vital Signs: Vital signs: Vital Signs Temperature 98.1 F 08/17/20 18:01 Pulse Rate 86 08/18/20 03:31 Respiratory Rate 16 08/18/20 03:31 Blood Pressure 133/87 08/18/20 03:31 Pulse Oximetry 95 08/18/20 03:31 MDM - Altered Mental Status MDM Narrative: Medical decision making narrative: Patient comes to the ER after polysubstance abuse. She was given IV fluids and has been having some improvement in her mental status but she is not back to her baseline. Transferred care to Dr. Pat at shift change Lab Data: Labs: Lab Results 08/17/20 08/17/20 08/17/20 Range/Units 18:21 18:21 18:22 WBC 8.6 (4.0-10.0) 10^3/ uL RBC 4.79 (4.1-5.3) 10^6/u L Hgb 12.5 (11.5-15.3) g/dL Hct 39.4 (37.0-47.0) % MCV 82.3 (81-99) fL MCH 26.1 L (28.0-34.0) pg MCHC 31.7 (30.0-36.0) g/dL RDW 15.7 H (12.1-15.1) % Plt Count 331 (130-400) 10^3/c mm MPV 10.7 H (7.4-10.4) fL Neut % (Auto) 76.5 % Lymph % (Auto) 16.2 % [place] % (Auto) 6.6 % Eos % (Auto) 0.0 % Baso % (Auto) 0.1 % Neut # (Auto) 6.57 (1.8-7.7) 10^3/u L Lymph # (Auto) 1.4 (0.8-4.8) 10^3/u L [place] # (Auto) 0.6 (0.2-0.9) 10^3/u L Eos # (Auto) 0.0 (0.0-0.8) 10^3/u L Baso # (Auto) 0.0 (0.0-0.1) 10^3/u L Nucleated RBC % (a uto) 0 % Nucleated RBCs # 0.0 /100WBC Sodium (136-145) mmol/L Potassium (3.5-5.1) mmol/L Chloride (98-107) mmol/L Carbon Dioxide (22-29) mmol/L Anion Gap (5-19) BUN (6-20) mg/dL Creatinine (0.5-0.9) mg/dL GFR Calculation (90-130) mL/min Glucose (65-115) mg/dL Calculated Osmolal ity (285-295) mOsm/k g Lactate (0.5-2.2) mmol/L Calcium (8.5-10.5) mg/dL Total Bilirubin (0.15-1.2) mg/dL AST (0-32) U/L ALT (0-33) U/L Alkaline Phosphata se (35-105) IU/L Troponin T Baselin e (0-10) ng/L Troponin T 120 Min [place] (0-10) ng/L Delta Troponin T (0-10) ABS# Total Protein (6.6-8.7) g/dL Albumin (3.5-5.2) g/dL Globulin (1.3-4.6) g/dL HCG, Qual (Negative) Urine Color Straw (Yellow) Urine Appearance Clear (CLEAR) Urine pH 5 (5-7) Ur Specific Gravit y 1.020 (1.005-1.030) Urine Protein Neg (Negative) Urine Glucose (UA) Norm (Normal) Urine Ketones Negative (Negative) Urine Blood Neg (Negative) Urine Nitrate Negative (Negative) Urine Bilirubin Neg (Negative) Urine Urobilinogen Norm (Negative) mg/dL Ur Leukocyte [place] ase Negative (Negative) Urine Opiates Scre en Negative (Negative) ng/mL Ur Barbiturates Sc reen Negative (Negative) ng/mL Ur Phencyclidine S crn Negative (Negative) ng/mL Ur Amphetamines Sc reen Negative (Negative) ng/mL U Benzodiazepines Scrn Positive H (Negative) ng/mL Urine Cocaine Scre en Negative (Negative) ng/mL U Marijuana (THC) Screen Positive H (Negative) ng/mL Ethyl Alcohol (0-10) mg/dL 08/17/20 08/17/20 08/17/20 Range/Units 18:22 18:22 18:22 WBC (4.0-10.0) 10^3/ uL RBC (4.1-5.3) 10^6/u L Hgb (11.5-15.3) g/dL Hct (37.0-47.0) % MCV (81-99) fL MCH (28.0-34.0) pg MCHC (30.0-36.0) g/dL RDW (12.1-15.1) % Plt Count (130-400) 10^3/c mm MPV (7.4-10.4) fL Neut % (Auto) % Lymph % (Auto) % [place] % (Auto) % Eos % (Auto) % Baso % (Auto) % Neut # (Auto) (1.8-7.7) 10^3/u L Lymph # (Auto) (0.8-4.8) 10^3/u L [place] # (Auto) (0.2-0.9) 10^3/u L Eos # (Auto) (0.0-0.8) 10^3/u L Baso # (Auto) (0.0-0.1) 10^3/u L Nucleated RBC % (a uto) % Nucleated RBCs # /100WBC Sodium 135 L (136-145) mmol/L Potassium 3.8 (3.5-5.1) mmol/L Chloride 94 L (98-107) mmol/L Carbon Dioxide 27 (22-29) mmol/L Anion Gap 17.8 (5-19) BUN 10 (6-20) mg/dL Creatinine 1.0 H (0.5-0.9) mg/dL GFR Calculation 60.5 L (90-130) mL/min Glucose 187 H (65-115) mg/dL Calculated Osmolal ity 284 L (285-295) mOsm/k g Lactate 2.6 H (0.5-2.2) mmol/L Calcium 9.4 (8.5-10.5) mg/dL Total Bilirubin 0.3 (0.15-1.2) mg/dL AST 20 (0-32) U/L ALT 31 (0-33) U/L Alkaline Phosphata se 89 (35-105) IU/L Troponin T Baselin e (0-10) ng/L Troponin T 120 Min [place] (0-10) ng/L Delta Troponin T (0-10) ABS# Total Protein 7.0 (6.6-8.7) g/dL Albumin 4.0 (3.5-5.2) g/dL Globulin 3.0 (1.3-4.6) g/dL HCG, Qual Negative (Negative) Urine Color (Yellow) Urine Appearance (CLEAR) Urine pH (5-7) Ur Specific Gravit y (1.005-1.030) Urine Protein (Negative) Urine Glucose (UA) (Normal) Urine Ketones (Negative) Urine Blood (Negative) Urine Nitrate (Negative) Urine Bilirubin (Negative) Urine Urobilinogen (Negative) mg/dL Ur Leukocyte [place] ase (Negative) Urine Opiates Scre en (Negative) ng/mL Ur Barbiturates Sc reen (Negative) ng/mL Ur Phencyclidine S crn (Negative) ng/mL Ur Amphetamines Sc reen (Negative) ng/mL U Benzodiazepines Scrn (Negative) ng/mL Urine Cocaine Scre en (Negative) ng/mL U Marijuana (THC) Screen (Negative) ng/mL Ethyl Alcohol < 10 (0-10) mg/dL 08/17/20 08/17/20 Range/Units 18:22 20:19 WBC (4.0-10.0) 10^3/ uL RBC (4.1-5.3) 10^6/u L Hgb (11.5-15.3) g/dL Hct (37.0-47.0) % MCV (81-99) fL MCH (28.0-34.0) pg MCHC (30.0-36.0) g/dL RDW (12.1-15.1) % Plt Count (130-400) 10^3/c mm MPV (7.4-10.4) fL Neut % (Auto) % Lymph % (Auto) % [place] % (Auto) % Eos % (Auto) % Baso % (Auto) % Neut # (Auto) (1.8-7.7) 10^3/u L Lymph # (Auto) (0.8-4.8) 10^3/u L [place] # (Auto) (0.2-0.9) 10^3/u L Eos # (Auto) (0.0-0.8) 10^3/u L Baso # (Auto) (0.0-0.1) 10^3/u L Nucleated RBC % (a uto) % Nucleated RBCs # /100WBC Sodium (136-145) mmol/L Potassium (3.5-5.1) mmol/L Chloride (98-107) mmol/L Carbon Dioxide (22-29) mmol/L Anion Gap (5-19) BUN (6-20) mg/dL Creatinine (0.5-0.9) mg/dL GFR Calculation (90-130) mL/min Glucose (65-115) mg/dL Calculated Osmolal ity (285-295) mOsm/k g Lactate (0.5-2.2) mmol/L Calcium (8.5-10.5) mg/dL Total Bilirubin (0.15-1.2) mg/dL AST (0-32) U/L ALT (0-33) U/L Alkaline Phosphata se (35-105) IU/L Troponin T Baselin e 6 (0-10) ng/L Troponin T 120 Min [place] 6.00 (0-10) ng/L Delta Troponin T 0 (0-10) ABS# Total Protein (6.6-8.7) g/dL Albumin (3.5-5.2) g/dL Globulin (1.3-4.6) g/dL HCG, Qual (Negative) Urine Color (Yellow) Urine Appearance (CLEAR) Urine pH (5-7) Ur Specific Gravit y (1.005-1.030) Urine Protein (Negative) Urine Glucose (UA) (Normal) Urine Ketones (Negative) Urine Blood (Negative) Urine Nitrate (Negative) Urine Bilirubin (Negative) Urine Urobilinogen (Negative) mg/dL Ur Leukocyte [place] ase (Negative) Urine Opiates Scre en (Negative) ng/mL Ur Barbiturates Sc reen (Negative) ng/mL Ur Phencyclidine S crn (Negative) ng/mL Ur Amphetamines Sc reen (Negative) ng/mL U Benzodiazepines Scrn (Negative) ng/mL Urine Cocaine Scre en (Negative) ng/mL U Marijuana (THC) Screen (Negative) ng/mL Ethyl Alcohol (0-10) mg/dL Discharge Plan Discharge Patient Disposition: Home Clinical Impression: Drug abuse Altered mental status Qualifiers: Altered mental status type: unspecified Qualified Code(s): R41.82 - Altered mental status, unspecified Condition: Stable Prescriptions: No Action aripiprazole [Abilify] 2 mg tablet 4 mg PO BEDTIME RF: 0 albuterol sulfate [Ventolin HFA] 90 mcg/actuation HFA aerosol inhaler 2 puff INHALATION QID PRN (Reason: Shortness Of Breath) RF: 0 acetaminophen [Tylenol 8 Hour] 650 mg tablet extended release 650 mg PO Q8H PRN (Reason: Mild Pain (Scale Score 1-4)) RF: 0 ferrous sulfate 325 mg (65 mg iron) tablet 325 mg PO DAILY RF: 0 omeprazole 20 mg capsule,delayed release(DR/EC) 20 mg PO DAILY 30 Days Qty: 30 RF: 3 chlorthalidone 25 mg tablet 25 mg PO DAILY 30 Days Qty: 30 RF: 4 quetiapine 300 mg tablet 300 mg PO BEDTIME RF: 0 metformin 500 mg tablet 1,000 mg PO BID RF: 0 metoprolol tartrate 50 mg tablet 100 mg PO BID RF: 0 Mirena 20 mcg/24 hours (5 yrs) 52 mg intrauterine device 1 device INTRAUTERI .every 5 years Qty: 1 RF: 0 alprazolam [Xanax] 2 mg Tablet 2 mg PO TID PRN (Reason: Anxiety) RF: 0 desvenlafaxine 100 mg Tablet Extended Release 24 Hr 100 mg PO DAILY RF: 0 potassium chloride 20 mEq tablet,ER particles/crystals 20 meq PO DAILY RF: 0 isosorbide dinitrate 20 mg tablet 20 mg PO BID RF: 0 desipramine 100 mg tablet 100 mg PO DAILY RF: 0 cholecalciferol (vitamin D3) 1,250 mcg (50,000 unit) capsule 1,250 mcg PO Q7D RF: 0 glipizide 5 mg tablet 5 mg PO BID RF: 0 Eliquis 5 mg tablet 5 mg PO BID RF: 0 Discharge Orders: Discharge ED (Routine); Ordered 08/18/20 Ordered By: Milagros Pat Referrals: Christa Chew APN [Primary Care Provider] - 1-3 days Discharge Diet: Advance as tolerated Discharge Activity: Resume usual activity Patient Instructions: Polysubstance Abuse (ED) Coding Level of Care Code ED [employer] Worker for Chg Fwd Exam Comprehensive Documented by User: Milagros Pat MD 08/18/20 03:12 HPI - Altered Mental Status General: Chief Complaint: Altered Mental Status Stated Complaint: OVERDOSE Time Seen by Provider: 08/17/20 18:01 [facility] ED PFSH: Medical History Atypical chest pain Body mass index (BMI) 45.0-49.9, adult Not motivated to lose weight Chronic constipation Controlled with medications followed by her primary care provider COPD (chronic obstructive pulmonary disease) Diagnosed in 2013 and is controlled with medication Depression Diagnosed at the age of 23 and has been on medication since then. She follows up with Dr. Benitez a psychiatrist and as well as therapy in [place]. She currently denies suicidal/homicidal ideation. Essential (primary) hypertension Diagnosed in 2019 and she follows up with Dr. Anderson and cardiology. Gastro-esophageal reflux disease without esophagitis Controlled with medication. H/O deep venous thrombosis Reports having a DVT in 2019 and states her warfarin dose was increased after this. She follows up with Dr. Crespo -had second DVT in 11/2019 and was taken off warfarin and is now on eliquis Obstructive sleep apnea Personal history of pulmonary embolism (~2012) States that she had a PE in 2012 and has been on warfarin since then. TIA (transient ischemic attack) Reports having had a TIA in 2019. Denies any neurological deficits. Followed by her primary care provider. Surgical History (Reviewed 08/19/20 @ 00:31 by Jose Alberto Norman MD, [facility] [place] Status post conization of cervix Office LEEP procedure performed by Dr. Zelaya in 2005 for MARY-2 on Pap smear. 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 Status post knee surgery 2018-open knee surgery for torn ACL Status post left breast lumpectomy Patient reports having had 3 lumpectomies of her left breast in 1999, 2007 and 2009 for benign lesions. Family History (Reviewed 08/19/20 @ 00:31 by Jose Alberto Norman MD, [facility] [place] Mother Hypertension Heart disease Grandmother Hypertension maternal and paternal Breast cancer maternal, diagnosed at age 43 Colon cancer maternal, diagnosed at age 63 Father Hypertension Grandfather Hypertension maternal and paternal Heart disease maternal Denies family history of Ovarian cancer Diabetes Uterine cancer Thyroid condition Stroke Social History Smoking and tobacco status: former smoker Second hand smoke exposure: Yes Alcohol intake: current Other details last substance use: last used 2013 per patient Lives independently: Yes Housing: House Marital status: Single Number of children: 0 service: No History of recent travel: No Physical Exam Urinary Catheter Management^: [place]: Cath Placed During This Visit: no Course Vital Signs: Vital signs: Vital Signs Temperature 98.1 F 08/17/20 18:01 Pulse Rate 86 08/18/20 03:31 Respiratory Rate 16 08/18/20 03:31 Blood Pressure 133/87 08/18/20 03:31 Pulse Oximetry 95 08/18/20 03:31 MDM - Altered Mental Status MDM Narrative: Medical decision making narrative: Heladio presents here with drug abuse. She is now awake and alert and is stable for discharge. She is not suicidal. Lab Data: Labs: Lab Results 08/17/20 08/17/20 08/17/20 Range/Units 18:21 18:21 18:22 WBC 8.6 (4.0-10.0) 10^3/ uL RBC 4.79 (4.1-5.3) 10^6/u L Hgb 12.5 (11.5-15.3) g/dL Hct 39.4 (37.0-47.0) % MCV 82.3 (81-99) fL MCH 26.1 L (28.0-34.0) pg MCHC 31.7 (30.0-36.0) g/dL RDW 15.7 H (12.1-15.1) % Plt Count 331 (130-400) 10^3/c mm MPV 10.7 H (7.4-10.4) fL Neut % (Auto) 76.5 % Lymph % (Auto) 16.2 % [place] % (Auto) 6.6 % Eos % (Auto) 0.0 % Baso % (Auto) 0.1 % Neut # (Auto) 6.57 (1.8-7.7) 10^3/u L Lymph # (Auto) 1.4 (0.8-4.8) 10^3/u L [place] # (Auto) 0.6 (0.2-0.9) 10^3/u L Eos # (Auto) 0.0 (0.0-0.8) 10^3/u L Baso # (Auto) 0.0 (0.0-0.1) 10^3/u L Nucleated RBC % (a uto) 0 % Nucleated RBCs # 0.0 /100WBC Sodium (136-145) mmol/L Potassium (3.5-5.1) mmol/L Chloride (98-107) mmol/L Carbon Dioxide (22-29) mmol/L Anion Gap (5-19) BUN (6-20) mg/dL Creatinine (0.5-0.9) mg/dL GFR Calculation (90-130) mL/min Glucose (65-115) mg/dL Calculated Osmolal ity (285-295) mOsm/k g Lactate (0.5-2.2) mmol/L Calcium (8.5-10.5) mg/dL Total Bilirubin (0.15-1.2) mg/dL AST (0-32) U/L ALT (0-33) U/L Alkaline Phosphata se (35-105) IU/L Troponin T Baselin e (0-10) ng/L Troponin T 120 Min [place] (0-10) ng/L Delta Troponin T (0-10) ABS# Total Protein (6.6-8.7) g/dL Albumin (3.5-5.2) g/dL Globulin (1.3-4.6) g/dL HCG, Qual (Negative) Urine Color Straw (Yellow) Urine Appearance Clear (CLEAR) Urine pH 5 (5-7) Ur Specific Gravit y 1.020 (1.005-1.030) Urine Protein Neg (Negative) Urine Glucose (UA) Norm (Normal) Urine Ketones Negative (Negative) Urine Blood Neg (Negative) Urine Nitrate Negative (Negative) Urine Bilirubin Neg (Negative) Urine Urobilinogen Norm (Negative) mg/dL Ur Leukocyte [place] ase Negative (Negative) Urine Opiates Scre en Negative (Negative) ng/mL Ur Barbiturates Sc reen Negative (Negative) ng/mL Ur Phencyclidine S crn Negative (Negative) ng/mL Ur Amphetamines Sc reen Negative (Negative) ng/mL U Benzodiazepines Scrn Positive H (Negative) ng/mL Urine Cocaine Scre en Negative (Negative) ng/mL U Marijuana (THC) Screen Positive H (Negative) ng/mL Ethyl Alcohol (0-10) mg/dL 08/17/20 08/17/20 08/17/20 Range/Units 18:22 18:22 18:22 WBC (4.0-10.0) 10^3/ uL RBC (4.1-5.3) 10^6/u L Hgb (11.5-15.3) g/dL Hct (37.0-47.0) % MCV (81-99) fL MCH (28.0-34.0) pg MCHC (30.0-36.0) g/dL RDW (12.1-15.1) % Plt Count (130-400) 10^3/c mm MPV (7.4-10.4) fL Neut % (Auto) % Lymph % (Auto) % [place] % (Auto) % Eos % (Auto) % Baso % (Auto) % Neut # (Auto) (1.8-7.7) 10^3/u L Lymph # (Auto) (0.8-4.8) 10^3/u L [place] # (Auto) (0.2-0.9) 10^3/u L Eos # (Auto) (0.0-0.8) 10^3/u L Baso # (Auto) (0.0-0.1) 10^3/u L Nucleated RBC % (a uto) % Nucleated RBCs # /100WBC Sodium 135 L (136-145) mmol/L Potassium 3.8 (3.5-5.1) mmol/L Chloride 94 L (98-107) mmol/L Carbon Dioxide 27 (22-29) mmol/L Anion Gap 17.8 (5-19) BUN 10 (6-20) mg/dL Creatinine 1.0 H (0.5-0.9) mg/dL GFR Calculation 60.5 L (90-130) mL/min Glucose 187 H (65-115) mg/dL Calculated Osmolal ity 284 L (285-295) mOsm/k g Lactate 2.6 H (0.5-2.2) mmol/L Calcium 9.4 (8.5-10.5) mg/dL Total Bilirubin 0.3 (0.15-1.2) mg/dL AST 20 (0-32) U/L ALT 31 (0-33) U/L Alkaline Phosphata se 89 (35-105) IU/L Troponin T Baselin e (0-10) ng/L Troponin T 120 Min [place] (0-10) ng/L Delta Troponin T (0-10) ABS# Total Protein 7.0 (6.6-8.7) g/dL Albumin 4.0 (3.5-5.2) g/dL Globulin 3.0 (1.3-4.6) g/dL HCG, Qual Negative (Negative) Urine Color (Yellow) Urine Appearance (CLEAR) Urine pH (5-7) Ur Specific Gravit y (1.005-1.030) Urine Protein (Negative) Urine Glucose (UA) (Normal) Urine Ketones (Negative) Urine Blood (Negative) Urine Nitrate (Negative) Urine Bilirubin (Negative) Urine Urobilinogen (Negative) mg/dL Ur Leukocyte [place] ase (Negative) Urine Opiates Scre en (Negative) ng/mL Ur Barbiturates Sc reen (Negative) ng/mL Ur Phencyclidine S crn (Negative) ng/mL Ur Amphetamines Sc reen (Negative) ng/mL U Benzodiazepines Scrn (Negative) ng/mL Urine Cocaine Scre en (Negative) ng/mL U Marijuana (THC) Screen (Negative) ng/mL Ethyl Alcohol < 10 (0-10) mg/dL 08/17/20 08/17/20 Range/Units 18:22 20:19 WBC (4.0-10.0) 10^3/ uL RBC (4.1-5.3) 10^6/u L Hgb (11.5-15.3) g/dL Hct (37.0-47.0) % MCV (81-99) fL MCH (28.0-34.0) pg MCHC (30.0-36.0) g/dL RDW (12.1-15.1) % Plt Count (130-400) 10^3/c mm MPV (7.4-10.4) fL Neut % (Auto) % Lymph % (Auto) % [place] % (Auto) % Eos % (Auto) % Baso % (Auto) % Neut # (Auto) (1.8-7.7) 10^3/u L Lymph # (Auto) (0.8-4.8) 10^3/u L [place] # (Auto) (0.2-0.9) 10^3/u L Eos # (Auto) (0.0-0.8) 10^3/u L Baso # (Auto) (0.0-0.1) 10^3/u L Nucleated RBC % (a uto) % Nucleated RBCs # /100WBC Sodium (136-145) mmol/L Potassium (3.5-5.1) mmol/L Chloride (98-107) mmol/L Carbon Dioxide (22-29) mmol/L Anion Gap (5-19) BUN (6-20) mg/dL Creatinine (0.5-0.9) mg/dL GFR Calculation (90-130) mL/min Glucose (65-115) mg/dL Calculated Osmolal ity (285-295) mOsm/k g Lactate (0.5-2.2) mmol/L Calcium (8.5-10.5) mg/dL Total Bilirubin (0.15-1.2) mg/dL AST (0-32) U/L ALT (0-33) U/L Alkaline Phosphata se (35-105) IU/L Troponin T Baselin e 6 (0-10) ng/L Troponin T 120 Min [place] 6.00 (0-10) ng/L Delta Troponin T 0 (0-10) ABS# Total Protein (6.6-8.7) g/dL Albumin (3.5-5.2) g/dL Globulin (1.3-4.6) g/dL HCG, Qual (Negative) Urine Color (Yellow) Urine Appearance (CLEAR) Urine pH (5-7) Ur Specific Gravit y (1.005-1.030) Urine Protein (Negative) Urine Glucose (UA) (Normal) Urine Ketones (Negative) Urine Blood (Negative) Urine Nitrate (Negative) Urine Bilirubin (Negative) Urine Urobilinogen (Negative) mg/dL Ur Leukocyte Ana Paula ase (Negative) Urine Opiates Scre en (Negative) ng/mL Ur Barbiturates Sc reen (Negative) ng/mL Ur Phencyclidine S crn (Negative) ng/mL Ur Amphetamines Sc reen (Negative) ng/mL U Benzodiazepines Scrn (Negative) ng/mL Urine Cocaine Scre en (Negative) ng/mL U Marijuana (THC) Screen (Negative) ng/mL Ethyl Alcohol (0-10) mg/dL Discharge Plan Discharge Patient Disposition: Home Clinical Impression: Drug abuse Altered mental status Qualifiers: Altered mental status type: unspecified Qualified Code(s): R41.82 - Altered mental status, unspecified Condition: Stable Prescriptions: No Action aripiprazole [Abilify] 2 mg tablet 4 mg PO BEDTIME RF: 0 albuterol sulfate [Ventolin HFA] 90 mcg/actuation HFA aerosol inhaler 2 puff INHALATION QID PRN (Reason: Shortness Of Breath) RF: 0 acetaminophen [Tylenol 8 Hour] 650 mg tablet extended release 650 mg PO Q8H PRN (Reason: Mild Pain (Scale Score 1-4)) RF: 0 ferrous sulfate 325 mg (65 mg iron) tablet 325 mg PO DAILY RF: 0 omeprazole 20 mg capsule,delayed release(DR/EC) 20 mg PO DAILY 30 Days Qty: 30 RF: 3 chlorthalidone 25 mg tablet 25 mg PO DAILY 30 Days Qty: 30 RF: 4 quetiapine 300 mg tablet 300 mg PO BEDTIME RF: 0 metformin 500 mg tablet 1,000 mg PO BID RF: 0 metoprolol tartrate 50 mg tablet 100 mg PO BID RF: 0 Mirena 20 mcg/24 hours (5 yrs) 52 mg intrauterine device 1 device INTRAUTERI .every 5 years Qty: 1 RF: 0 alprazolam [Xanax] 2 mg Tablet 2 mg PO TID PRN (Reason: Anxiety) RF: 0 desvenlafaxine 100 mg Tablet Extended Release 24 Hr 100 mg PO DAILY RF: 0 potassium chloride 20 mEq tablet,ER particles/crystals 20 meq PO DAILY RF: 0 isosorbide dinitrate 20 mg tablet 20 mg PO BID RF: 0 desipramine 100 mg tablet 100 mg PO DAILY RF: 0 cholecalciferol (vitamin D3) 1,250 mcg (50,000 unit) capsule 1,250 mcg PO Q7D RF: 0 glipizide 5 mg tablet 5 mg PO BID RF: 0 Eliquis 5 mg tablet 5 mg PO BID RF: 0 Discharge Orders: Discharge ED (Routine); Ordered 08/18/20 Ordered By: Milagros Pat Referrals: Christa Chew APN [Primary Care Provider] - 1-3 days Discharge Diet: Advance as tolerated Discharge Activity: Resume usual activity Patient Instructions: Polysubstance Abuse (ED) Coding Level of Care Code ED Optical Goods Worker for Marci Fwd Exam Comprehensive
[2020-08-18] VITALS: BP 130/87; PULSE 118; RESP 18; O2SAT 96
[2020-08-18 00:30] VITALS: BP 123/83; PULSE 124; O2SAT 96
[2020-08-18 01:00] VITALS: BP 116/93; PULSE 130; O2SAT 96
[2020-08-18 03:31] VITALS: BP 133/87; PULSE 86; RESP 16; O2SAT 95
[2020-08-24 07:58] LABS: ABG PCO2 39.7 mmHg (35-45); ABG PH Result 7.45 (7.35-7.45); Arterial Blood Gas Hematocrit 39.9 % (37-47); Blood Gas Allen Test Pos; Blood Gas Operator Identificat ED; Blood Gas Sample Site Radial, left; Blood Gas Sample Type Arterial; Carboxyhemoglobin 0.9 %THgb (0.4-20.1); HCO3 ABG 27.3 mmol/L (22-26); HGB O2 Sat 95.6 % (95-100); Methemoglobin 0.8 % (0.4-1.5); Oxygen Device ROOM AIR; PO2 ABG 87.5 mmHg (80.0-100.0)
== END 2020-08-18 02:58 | disposition home or self-care (01) ==
PROVIDERS: Family Medicine; Emergency Provider Emergency Medicine; PCP Nurse Practitioner Family
DX: R41.82 Altered mental status, unspecified (principal); F19.10 Other psychoactive substance abuse, uncomplicated; Z79.84 Long term (current) use of oral hypoglycemic drugs; Z79.01 Long term (current) use of anticoagulants; J44.9 Chronic obstructive pulmonary disease, unspecified; I10 Essential (primary) hypertension; Z86.73 Personal history of transient ischemic attack (TIA), and cerebral infarction without residual deficits; Z87.891 Personal history of nicotine dependence
CPT/HCPCS: 36415; 36600; 51702; 70450; 71045; 80053; 80306; 80307; 81003; 82805; 83605; 84484; 84703; 85025; 93005; 96360; 99284; J7030

== ENCOUNTER 2020-08-18 14:48 | Inpatient (IN) | payer MEDICARE, MEDICAID, SELFPAY ==
[2020-08-18 14:54] VITALS: BP 141/83; PULSE 118; RESP 18; TEMP 36.7; O2SAT 98; BMI 56.6
--- NOTE | 2020-08-18 16:06 | PC.NURSE ---
PT UPDATED ON WAIT TIME
[2020-08-18 20:34] LABS: Basophils % 0.1 %; Hematocrit 44.1 % (37.0-47.0); Hemoglobin 14.1 g/dL (11.5-15.3); Lymphocytes # 1.1 10^3/uL (0.8-4.8); Lymphocytes % 13.6 %; Mean Corpuscular Hemoglobin 26.1 pg (28.0-34.0); Mean Corpuscular Volume 81.5 fL (81-99); Mean Platelet Volume 10.5 fL (7.4-10.4); Monocytes # 0.7 10^3/uL (0.2-0.9); Neutrophils # 6.53 10^3/uL (1.8-7.7); Neutrophils % 77.8 %; Nucleated Red Blood Cells % 0 %; Platelet Count 362 10^3/cmm (130-400); Red Blood Count 5.41 10^6/uL (4.1-5.3); Red Cell Distribution Width 16.4 % (12.1-15.1); White Blood Count 8.4 10^3/uL (4.0-10.0)
[2020-08-18 20:42] LABS: HCG Qualitative Urine. Negative (Negative)
[2020-08-18 20:47] LABS: Amphetamines Screen Urine Negative (Negative); Barbiturates Screen Urine Negative (Negative); Benzodiazepines Screen Urine Positive (Negative); Cocaine Screen Urine Negative (Negative); Opiate Screen Urine Negative (Negative); PCP Screen Urine Negative (Negative); THC Screen Urine Positive (Negative)
[2020-08-18 20:58] LABS: Alanine Aminotransferase 34 U/L (0-33); Albumin Level 4.8 g/dL (3.5-5.2); Alkaline Phosphatase 106 IU/L (35-105); Anion Gap 19.5 (5-19); Aspartate Amino Transferase 20 U/L (0-32); Blood Urea Nitrogen 9 mg/dL (6-20); Calcium 10.4 mg/dL (8.5-10.5); Carbon Dioxide 29 mmol/L (22-29); Chloride 94 mmol/L (98-107); Globulin 3.4 g/dL (1.3-4.6); Glomerular Filtration Rate 60.5 mL/min (90-130); Glucose 156 mg/dL (65-115); Osmolality Calculated 290 mOsm/kg (285-295); Potassium 3.5 mmol/L (3.5-5.1); Sodium 139 mmol/L (136-145); Total Bilirubin 0.4 mg/dL (0.15-1.2); Total Protein 8.2 g/dL (6.6-8.7)
[2020-08-18 21:04] LABS: Acetaminophen < 5.0 ug/mL (10-30); Alcohol Level < 10 mg/dL (0-10); Salicylate < 0.3 mg/dL (3-10)
[2020-08-18 21:11] LABS: Add Urine Microscopic? YES; Bacteria Urine 1+ /hpf; Bilirubin Urine 1+ (Negative); Blood Urine 3+ (Negative); Glucose Urine UA Norm (Normal); Ketones Urine 1+ (Negative); Leukocyte Esterase Urine Trace (Negative); Mucus Urine 2+ /hpf; Nitrate Urine Negative (Negative); Protein Urine 1+ (Negative); RBC Urine 0-4 /hpf (0-2); Specific Gravity, Urine 1.025 (1.005-1.030); Squamous Epithelial Cell Urine 25-40 /hpf (0-5); Urine Appearance Clear (CLEAR); Urine Color Amber (Yellow); Urobilinogen Urine 1 mg/dL (Negative); WBC Urine 15-25 /hpf (0-5); pH Urine 5 (5-7)
--- NOTE | 2020-08-18 21:31 | PC.PHAR ---
pt unable to verify medications-medications entered are meds that show that have been filled recently from ext med history and medications that were already entered from a previous visit
[2020-08-18 23:08] VITALS: BP 153/88; PULSE 117; RESP 16; O2SAT 100
[2020-08-18 23:32] LABS: Glucose Point of Care 151 mg/dL (70-110)
[2020-08-19] MEDS: hyDROXYzine 25 mg Capsule 50 MG PO (00:08)
[2020-08-19] MEDS: ondansetron 4 MG Tablet PO ×3 (00:08→21:36)
[2020-08-19] MEDS: trazodone 50 mg Tablet PO ×2 (00:08→20:56)
--- NOTE | 2020-08-19 00:09 | PC.NURSE ---
PRNS VISTERIL 50MG PO GIVEN FOR ANXIETY TRAZODONE 50 MG PO GIVEN FOR INSOMNIA SOFRAN 4 MG PO GIVEN FOR NAUSEA/VOMITING
--- NOTE | 2020-08-19 00:27 | ED_ITS ---
HPI - Nausea/Vomiting/Diarrhea General: Chief complaint: Nausea/Vomiting/Diarrhea Stated complaint: NAUSEA Time Seen by Provider: 08/18/20 19:05 Source: patient Mode of arrival: EMS Limitations: no limitations History of Present Illness: HPI Narrative: This is a 45-year-old female patient who was seen yesterday intentional ingestion of illicit substances. At that time she denied any suicidal ideation. She was discharged home this morning and states that when she got home she took 2 bottles of LSD a lot of mushrooms and 5 pounds of edibles containing THC. She said she did it intentionally and was an attempt at suicide. She admits to a history of depression and says she just wanted to end her life. She vomited after taking all of these drugs. MD elicited complaint: nausea and vomiting Associated nausea: Yes Associated symtoms: Reports nausea; Denies change in vision, dysuria, headache(s) or palpitations Review of Systems General: Reports: 10 or more systems reviewed and unremarkable except in HPI and below Const: Denies: fever(s), chills or body aches Eyes: Denies: change in vision or blurry vision ENMT: Denies: throat pain, enlarged tonsils, odynophagia, hoarseness, mouth pain or swelling of lips/tongue Card: Denies: palpitations, irregular heart rhythm, edema or swelling of feet/ankles Resp: Denies: dyspnea, productive cough or non-productive cough GI: Reports: nausea and vomiting; Denies: abdominal pain : Denies: flank pain, difficulty voiding, dysuria, urinary frequency, urinary urgency or urinary hesitancy Musc: Denies: neck pain, back pain or extremity swelling Skin/Breast: Denies: rash, pruritus or erythema Neuro: Denies: headache(s), numbness in extremities or weakness in extremities Psych: Reports: depression and suicidal ideation; Denies: homicidal ideation Endo: Denies: polyuria, polydipsia or tired all the time FOR[facility]LY [facility], [facility] ED PFSH: Medical History (Updated 08/19/20 @ 00:34 by Jose Alberto Norman [place] [facility] [place] Atypical chest pain Body mass index (BMI) 45.0-49.9, adult Not motivated to lose weight Chronic constipation Controlled with medications followed by her primary care provider COPD (chronic obstructive pulmonary disease) Diagnosed in 2013 and is controlled with medication Depression Diagnosed at the age of 23 and has been on medication since then. She follows up with Dr. Benitez a psychiatrist and as well as therapy in [place]. She currently denies suicidal/homicidal ideation. Essential (primary) hypertension Diagnosed in 2019 and she follows up with Dr. Anderson and cardiology. Gastro-esophageal reflux disease without esophagitis Controlled with medication. H/O deep venous thrombosis Reports having a DVT in 2019 and states her warfarin dose was increased after this. She follows up with Dr. Crespo -had second DVT in 11/2019 and was taken off warfarin and is now on eliquis Obstructive sleep apnea Personal history of pulmonary embolism (~2012) States that she had a PE in 2012 and has been on warfarin since then. TIA (transient ischemic attack) Reports having had a TIA in 2019. Denies any neurological deficits. Followed by her primary care provider. Surgical History (Reviewed 08/19/20 @ 00:31 by Jose Alberto Norman MD, [facility] [place] Status post conization of cervix Office LEEP procedure performed by Dr. Zelaya in 2005 for MARY-2 on Pap smear. 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 Status post knee surgery 2018-open knee surgery for torn ACL Status post left breast lumpectomy Patient reports having had 3 lumpectomies of her left breast in 1999, 2007 and 2009 for benign lesions. Family History (Reviewed 08/19/20 @ 00:31 by Jose Alberto Norman MD, [facility] Mother Hypertension Heart disease Grandmother Hypertension maternal and paternal Breast cancer maternal, diagnosed at age 43 Colon cancer maternal, diagnosed at age 63 Father Hypertension Grandfather Hypertension maternal and paternal Heart disease maternal Denies family history of Ovarian cancer Diabetes Uterine cancer Thyroid condition Stroke Social History Smoking and tobacco status: former smoker Second hand smoke exposure: Yes Alcohol intake: current Other details last substance use: last used 2013 per patient Lives independently: Yes Housing: House Marital status: Single Number of children: 0 service: No History of recent travel: No Female Reproductive History: Date of last menstrual period: 08/17/20 Physical Exam Const: COMMON NORMALS: no acute distress, average body habitus, patient orie nted x3, no limitations, healthy appearing, alert and well nourished HENMT: COMMON NORMALS: normocephalic, atraumatic and moist oral mucous membra dona HEAD & SCALP: normocephalic and atraumatic Neck/C-Spine: COMMON NORMALS: no meningeal signs and no JVD Resp: COMMON NORMALS: normal respiratory effort, No retractions, No use of accessory muscles, clear to auscultation bilaterally and percussion normal AUSCULTATION: clear to auscultation bilaterally PERCUSSION: percussion normal Cardio: COMMON NORMALS: no JVD, regular rate, regular rhythm, S1 normal heart sound present, S2 normal heart sound present, No gallops present (Cardio), No clicks present (Cardio), No murmurs present (Cardio), No rub (Cardio) and Peripheral pulses 2+ throughout RATE: regular rate RHYTHM: regular rhythm HEART SOUNDS: S1 normal heart sound present and S2 normal heart sound present PERIPHERAL PULSES: Peripheral pulses 2+ throughout GI: COMMON NORMALS: Normal to inspection, nondistended, normoactive bowel sounds present, Soft to palpation, non-tender, No hepatosplenomegaly present, no masses and no bruits PALPATION: Yes Soft to palpation and Yes No hepatosplenomegaly present Extremity: COMMON NORMALS: normal to inspection, full ROM, capillary refill normal, no calf tenderness and no pedal edema Neuro: COMMON NORMALS: patient oriented x3 SENSORIUM/ORIENTATION: Yes alert MENINGEAL SIGNS: Yes no meningeal signs Psych: ATTITUDE: Yes calm SPEECH: Yes slow MOOD & AFFECT: Yes depressed mood Skin: COMMON NORMALS: no rashes or lesions noted, no wounds, turgor normal, no jaundice, no petechiae and no mottling GENERAL SKIN EXAM: no rashes or lesions noted and turgor normal Course Consultations: Consultation #1: Discussed the patient with Dr. Wilson, who advised that we admit her overnight and he will evaluate her in the morning. Vital Signs: Vital signs: Vital Signs Temperature 98.1 F 08/18/20 14:54 Pulse Rate 117 H 08/18/20 23:08 Respiratory Rate 16 08/18/20 23:08 Blood Pressure 153/88 08/18/20 23:08 Pulse Oximetry 100 08/18/20 23:08 MDM - Nausea/Vomiting/Diarrhea MDM Narrative: Medical decision making narrative: 45-year-old female patient who admits to intentional ingestion of illicit drugs in a suicide attempt. She is medically cleared and admitted to the neuropsychiatric unit for further evaluation and management. Medical Records: Attestation: I reviewed the patient's medical records. Lab Data: Attestation: I reviewed the patient's lab results. Labs: Lab Results 08/18/20 08/18/20 08/18/20 Range/Units 20:15 20:15 20:20 WBC 8.4 (4.0-10.0) 10^3/ uL RBC 5.41 H (4.1-5.3) 10^6/u L Hgb 14.1 (11.5-15.3) g/dL Hct 44.1 (37.0-47.0) % MCV 81.5 (81-99) fL MCH 26.1 L (28.0-34.0) pg MCHC 32.0 (30.0-36.0) g/dL RDW 16.4 H (12.1-15.1) % Plt Count 362 (130-400) 10^3/c mm MPV 10.5 H (7.4-10.4) fL Neut % (Auto) 77.8 % Lymph % (Auto) 13.6 % [place] % (Auto) 8.0 % Eos % (Auto) 0.0 % Baso % (Auto) 0.1 % Neut # (Auto) 6.53 (1.8-7.7) 10^3/u L Lymph # (Auto) 1.1 (0.8-4.8) 10^3/u L [place] # (Auto) 0.7 (0.2-0.9) 10^3/u L Eos # (Auto) 0.0 (0.0-0.8) 10^3/u L Baso # (Auto) 0.0 (0.0-0.1) 10^3/u L Nucleated RBC % (a uto) 0 % Nucleated RBCs # 0.0 /100WBC Sodium 139 (136-145) mmol/L Potassium 3.5 (3.5-5.1) mmol/L Chloride 94 L (98-107) mmol/L Carbon Dioxide 29 (22-29) mmol/L Anion Gap 19.5 H (5-19) BUN 9 (6-20) mg/dL Creatinine 1.0 H (0.5-0.9) mg/dL GFR Calculation 60.5 L (90-130) mL/min Glucose 156 H (65-115) mg/dL Calculated Osmolal ity 290 (285-295) mOsm/k g Calcium 10.4 (8.5-10.5) mg/dL Total Bilirubin 0.4 (0.15-1.2) mg/dL AST 20 (0-32) U/L ALT 34 H (0-33) U/L Alkaline Phosphata se 106 H (35-105) IU/L Total Protein 8.2 (6.6-8.7) g/dL Albumin 4.8 (3.5-5.2) g/dL Globulin 3.4 (1.3-4.6) g/dL HCG, Qual Negative (Negative) Urine Color (Yellow) Urine Appearance (CLEAR) Urine pH (5-7) Ur Specific Gravit y (1.005-1.030) Urine Protein (Negative) Urine Glucose (UA) (Normal) Urine Ketones (Negative) Urine Blood (Negative) Urine Nitrate (Negative) Urine Bilirubin (Negative) Urine Urobilinogen (Negative) mg/dL Ur Leukocyte Ana Paula ase (Negative) Urine RBC (0-2) /hpf Urine WBC (0-5) /hpf Ur Squamous Epith Cells (0-5) /hpf Amorphous Sediment Urine Bacteria (NONE) /hpf Urine Mucus /hpf Salicylates < 0.3 L (3-10) mg/dL Urine Opiates Scre en (Negative) ng/mL Acetaminophen < 5.0 L (10-30) ug/mL Ur Barbiturates Sc reen (Negative) ng/mL Ur Phencyclidine S crn (Negative) ng/mL Ur Amphetamines Sc reen (Negative) ng/mL U Benzodiazepines Scrn (Negative) ng/mL Urine Cocaine Scre en (Negative) ng/mL U Marijuana (THC) Screen (Negative) ng/mL Ethyl Alcohol < 10 (0-10) mg/dL 08/18/20 08/18/20 Range/Units 20:20 20:20 WBC (4.0-10.0) 10^3/ uL RBC (4.1-5.3) 10^6/u L Hgb (11.5-15.3) g/dL Hct (37.0-47.0) % MCV (81-99) fL MCH (28.0-34.0) pg MCHC (30.0-36.0) g/dL RDW (12.1-15.1) % Plt Count (130-400) 10^3/c mm MPV (7.4-10.4) fL Neut % (Auto) % Lymph % (Auto) % [place] % (Auto) % Eos % (Auto) % Baso % (Auto) % Neut # (Auto) (1.8-7.7) 10^3/u L Lymph # (Auto) (0.8-4.8) 10^3/u L [place] # (Auto) (0.2-0.9) 10^3/u L Eos # (Auto) (0.0-0.8) 10^3/u L Baso # (Auto) (0.0-0.1) 10^3/u L Nucleated RBC % (a uto) % Nucleated RBCs # /100WBC Sodium (136-145) mmol/L Potassium (3.5-5.1) mmol/L Chloride (98-107) mmol/L Carbon Dioxide (22-29) mmol/L Anion Gap (5-19) BUN (6-20) mg/dL Creatinine (0.5-0.9) mg/dL GFR Calculation (90-130) mL/min Glucose (65-115) mg/dL Calculated Osmolal ity (285-295) mOsm/k g Calcium (8.5-10.5) mg/dL Total Bilirubin (0.15-1.2) mg/dL AST (0-32) U/L ALT (0-33) U/L Alkaline Phosphata se (35-105) IU/L Total Protein (6.6-8.7) g/dL Albumin (3.5-5.2) g/dL Globulin (1.3-4.6) g/dL HCG, Qual (Negative) Urine Color [place] (Yellow) Urine Appearance Clear (CLEAR) Urine pH 5 (5-7) Ur Specific Gravit y 1.025 (1.005-1.030) Urine Protein 1+ H (Negative) Urine Glucose (UA) Norm (Normal) Urine Ketones 1+ H (Negative) Urine Blood 3+ H (Negative) Urine Nitrate Negative (Negative) Urine Bilirubin 1+ H (Negative) Urine Urobilinogen 1 H (Negative) mg/dL Ur Leukocyte Ana Paula ase Trace H (Negative) Urine RBC 0-4 H (0-2) /hpf Urine WBC 15-25 H (0-5) /hpf Ur Squamous Epith Cells 25-40 H (0-5) /hpf Amorphous Sediment Not Reportable Urine Bacteria 1+ H (NONE) /hpf Urine Mucus 2+ /hpf Salicylates (3-10) mg/dL Urine Opiates Scre en Negative (Negative) ng/mL Acetaminophen (10-30) ug/mL Ur Barbiturates Sc reen Negative (Negative) ng/mL Ur Phencyclidine S crn Negative (Negative) ng/mL Ur Amphetamines Sc reen Negative (Negative) ng/mL U Benzodiazepines Scrn Positive H (Negative) ng/mL Urine Cocaine Scre en Negative (Negative) ng/mL U Marijuana (THC) Screen Positive H (Negative) ng/mL Ethyl Alcohol (0-10) mg/dL Discharge Plan Discharge Patient Disposition: Admitted As Inpatient Admit Provider: Bon Wilson Clinical Impression: Suicidal ideation, Polysubstance abuse Condition: Stable Coding Level of Care Code ED Section Cutter for Marci Helms
--- NOTE | 2020-08-19 01:25 | PC.NURSE ---
PRN FOLLOWUP PT IS NO LONGER NAUSEATED, SLEEPING WELL, AND APPEARS CALM. MEDICATION IS EFFECTIVE AT THIS TIME. WILL CONTINUE TO MONITOR.
[2020-08-19 02:20] VITALS: BP 153/88; PULSE 117; RESP 16; TEMP 36.7
--- NOTE | 2020-08-19 02:24 | PC.NURSE ---
PM ASSESSMENT PT IS 45/F ADMITTED VIA ED FOR SI/POLYSUBSTANCE ABUSE. PT IS POSITIVE FOR THC AND BENZO'S, ADMITS TO RECENT USE OF METH, PCP, AND 10 OZ OF SHROOMS. PT LIVES ALONE WITH HER 2 DOGS. ECHOLALIA IS THE PATTERN OF SPEECH NOTED, SHE SEEMS TO BE EXPERIENCING AH/VH, STATES I SEE MONKEYS, SHE IS IN HER ROOM RESTING AT THIS TIME PT DENIES PAIN, DENIES SI/HI AT THIS TIME, HOWEVER, REPORTS NAUSEA. SHE IS SLEEPING ON A WEDGE TO ENCOURAGE APPROPRIATE BREATHING. LUNG SOUNDS ARE MILDLY DIMINISHED, MURMUR HEARD ON AUSCULTATION WITH NORMAL S1 & S2 NOTED, PT REPORTS HX OF HEART ATTACK AT AGE 28 W/O STENT PLACEMENT, PT STATES i HAVE A HISTORY OF BLOOD CLOTS AND I AM ON ELIQUIS FOR THAT. WILL CONTINUE TO MONITOR PATIENT CONDITION THE NIGHT GOES ON.
[2020-08-19] MEDS: OLANZapine 5 mg ODT PO (02:36)
--- NOTE | 2020-08-19 02:46 | PC.NURSE ---
The patient was awake, confused, hallucinating. She was seeing monkeys in the room. Zyprexa Zydis 5 mg given.
[2020-08-19] MEDS: LORazepam 2 mg/mL INJ 1 mL IM (03:34)
[2020-08-19] MEDS: haloperidol inj 5 mg/mL INJ 1 mL IM (03:35)
[2020-08-19] MEDS: diphenhydrAMINE 50 mg/mL SDV 1mL IM (03:35)
--- NOTE | 2020-08-19 03:43 | PC.NURSE ---
The patient continues to be agitated and psychotic. She is seeing animals running about in her room. Medication offered for her symptoms and she was agreeable. Haldol 5 mg IM, Ativan 2 mg IM, Benadryl 50 mg IM given. Injection sites noted on AUG.
--- NOTE | 2020-08-19 04:06 | PC.NURSE ---
B52/PSYCHOSIS/AGITATION B52 @ GIVEN @0335 2MG IM ATIVAN, 5MG IM HALDOL 50MG IM BENEDRYL GIVEN FOR INCREASED AGITATION/PT REPORTS SEEING MONKEYS, YELLING IN ROOM, TALKING TO UNSEEN THINGS, REPORTS INCREASED AGITATION. PT IS NOT ABLE TO CALM SELF DOWN, SHE IS TALKING NON-STOP, MOANING, AND I CAN NOT DE-ESCALATE HER BEHAVIOR VERBALLY. PT AGREED TO TAKE INJECTIONS TO EASE HER SYMPTOMS. WILL CONTINUE TO MONITOR PT.
--- NOTE | 2020-08-19 05:48 | PC.NURSE ---
Call to Dr. Wilson for medication review. The patient uses [facility] in [facility], . Dr. Wilson wants pharmacy called to confirm current meds prior to giving orders.
[2020-08-19 06:00] VITALS: BP 124/70; PULSE 111; RESP 22; TEMP 36.6; O2SAT 98
[2020-08-19 06:57] LABS: Glucose Point of Care 143 mg/dL (70-110)
--- NOTE | 2020-08-19 10:29 | PC.NURSE ---
PRN ZOFRAN 4 MG GIVEN PO PER PT C/O NAUSEA.
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
[2020-08-19 13:09] VITALS: PULSE 138; RESP 22; O2SAT 93
[2020-08-19 14:00] VITALS: BP 116/64; PULSE 84; RESP 16; TEMP 37.1; O2SAT 96
[2020-08-19] MEDS: metformin 500 mg Tablet 1000 MG PO (16:11)
[2020-08-19 19:41] VITALS: PULSE 99; RESP 20; O2SAT 95
[2020-08-19 20:01] LABS: Glucose Point of Care 126 mg/dL (70-110)
[2020-08-19 20:31] VITALS: BP 121/71; PULSE 112; RESP 17; TEMP 37; O2SAT 92
[2020-08-19] MEDS: apixaban 5 mg Tablet PO (20:55)
[2020-08-19] MEDS: isosorbide dinitrate 20 mg Tablet PO (20:55)
[2020-08-19] MEDS: ARIPiprazole 2 mg Tablet 4 MG PO (20:55)
[2020-08-19] MEDS: quetiapine 300 mg Tablet PO (20:56)
[2020-08-19] MEDS: metoprolol tartrate 50 mg Tablet 100 MG PO (20:56)
--- NOTE | 2020-08-19 20:57 | PC.NURSE ---
Trazodone 50 mg requested for Insomnia.
[2020-08-20] MEDS: ondansetron 4 MG Tablet PO ×2 (04:55→21:09)
--- NOTE | 2020-08-20 04:59 | PC.NURSE ---
Patient came to nurses station requesting Ice water. WE gave her new Ice water she went to her room. While making rounds Staff noted that she had become nauseated and C/O being hot. Administered 4mg Zofran and gave Pt. a cool wash cloth.
[2020-08-20 06:00] VITALS: BP 117/84; PULSE 92; RESP 17; TEMP 36.7; O2SAT 94
[2020-08-20] MEDS: metformin 500 mg Tablet 1000 MG PO ×2 (06:35→16:29)
[2020-08-20 06:46] LABS: Glucose Point of Care 156 mg/dL (70-110)
[2020-08-20] MEDS: apixaban 5 mg Tablet PO ×2 (08:07→21:09)
[2020-08-20] MEDS: chlorthalidone 25 mg Tablet PO (08:07)
[2020-08-20] MEDS: desvenlafaxine 50 mg Tablet 100 MG PO (08:07)
[2020-08-20] MEDS: metoprolol tartrate 50 mg Tablet 100 MG PO ×2 (08:07→21:08)
[2020-08-20] MEDS: ferrous sulfate EC 325 mg Tablet PO (08:08)
[2020-08-20] MEDS: potassium chloride ER 20 mEq Tablet PO (08:08)
[2020-08-20] MEDS: isosorbide dinitrate 20 mg Tablet PO ×2 (08:08→21:07)
[2020-08-20] MEDS: pantoprazole DR 40 mg Tablet PO (08:08)
--- NOTE | 2020-08-20 12:47 | PM.NPN ---
Subjective NPU Subjective: Interval history: Heladio presents today apologizing for her mood dysregulation for the past day or so. She also was desirous of discussing some statements she made that were not accurate that might cause problems for a therapist that she was seeing. She has concerns that she might not be able to continue seeing that person which makes her very sad she is very tearful about the problems that her behavior may have caused. We discussed the possibility of her calling and discussing the situation with that person tomorrow and if so discharging possibly sometime after that. Mental Status Exam MSE Comments: This is a morbidly obese white female in hospital scrubs with limited grooming and eye contact. No abnormal movements except for psychomotor retardation. Cooperative with exam in mild to moderate distress. Speech was more normal rate and volume. Mood described as maybe a little better but said, affect congruent and tearful . Thought process organized. Thought content: Patient denied suicidal or homicidal ideation, there were no delusions reported or noted, she denied any auditory visual hallucination. Attention and concentration appeared intact and memory appeared mostly reliable but none were formally tested. She is alert and oriented x3. Insight and judgment are limited, but improving impulse control is limited. Vitals/I&O/Wt Last Vital Signs Temp 98.2 F 08/20/20 22:00 Pulse 70 08/20/20 22:00 Resp 18 08/20/20 22:00 BP 185/96 08/20/20 22:00 Pulse Ox 96 08/20/20 22:00 Data NPU : 08/18/20 20:15 08/18/20 20:15 A&P Additional A&P Information (1) Altered mental status: (2) Drug abuse: (3) Suicidal ideation: (4) Polysubstance abuse: (5) Atypical chest pain: (6) Abnormal uterine bleeding (AUB): (7) TIA (transient ischemic attack): (8) Yeast dermatitis: (9) History of borderline personality disorder: Additional A&P Information This is a 45-year-old white female with a long history of mental health treatment and services who presents with active addiction she identifies as a suicide attempt currently ambivalent about medication changes. 1. Continue current medication. We will continue to recommend changes in medications specifically increasing Abilify as a first step. 2. Continue every 15 minute checks for safety. 3. Encourage individual, group and milieu therapies. 4. Encourage sober living treatment after discharge at the highest level of care to which he is willing to commit. Involuntary Hold Information 96 Hour Hold: 96 Hour Involuntary Admission: No Attestations NPU Medical Necessity Statement*: Inpatient hospitalization is medically necessary and the clinically appropriate intervention at this time. We will monitor medications and make changes as indicated. Likely length of stay 1-4 days. Coding Level of Care Code Acute Applications Instructor for Marci Helms
[2020-08-20 14:00] VITALS: BP 139/88; PULSE 72; RESP 18; TEMP 36.7; O2SAT 97
[2020-08-20 20:46] LABS: Glucose Point of Care 106 mg/dL (70-110)
[2020-08-20] MEDS: quetiapine 300 mg Tablet PO (21:07)
[2020-08-20] MEDS: ARIPiprazole 2 mg Tablet 4 MG PO (21:07)
--- NOTE | 2020-08-20 21:10 | PC.NURSE ---
Patient requested PRN Xanax 2mg PO for anxiety; given.
[2020-08-20 21:21] VITALS: PULSE 100; RESP 19; O2SAT 95
[2020-08-20 22:00] VITALS: BP 185/96; PULSE 70; RESP 18; TEMP 36.8; O2SAT 96
[2020-08-21 06:00] VITALS: BP 111/67; PULSE 93; RESP 18; TEMP 36.6; O2SAT 94
[2020-08-21] MEDS: metformin 500 mg Tablet 1000 MG PO ×2 (06:11→16:38)
[2020-08-21 06:36] LABS: Glucose Point of Care 133 mg/dL (70-110)
[2020-08-21] MEDS: desvenlafaxine 50 mg Tablet 100 MG PO (07:51)
[2020-08-21] MEDS: potassium chloride ER 20 mEq Tablet PO (07:51)
[2020-08-21] MEDS: apixaban 5 mg Tablet PO ×2 (07:52→21:23)
[2020-08-21] MEDS: chlorthalidone 25 mg Tablet PO (07:52)
[2020-08-21] MEDS: isosorbide dinitrate 20 mg Tablet PO ×2 (07:52→21:22)
[2020-08-21] MEDS: pantoprazole DR 40 mg Tablet PO ×2 (07:52→22:13)
[2020-08-21] MEDS: metoprolol tartrate 50 mg Tablet 100 MG PO ×2 (07:52→21:21)
[2020-08-21] MEDS: ferrous sulfate EC 325 mg Tablet PO (07:52)
[2020-08-21 13:37] VITALS: BP 124/83; PULSE 82; RESP 18; TEMP 37.1; O2SAT 94
[2020-08-21] MEDS: acetaminophen 325 mg Tablet 650 MG PO (15:24)
[2020-08-21] MEDS: ondansetron 4 MG Tablet PO (15:24)
--- NOTE | 2020-08-21 18:22 | P.PN_ITS ---
Subjective NPU Subjective: Interval history: Patient presents today reporting that she is feeling a little better. She feels like she just needed some support during a rough time and thinks that things are trending in the right direction. We discussed the risk-benefit alternatives of considering discharge tomorrow and she and social work team arranged a ride. She reports eating and sleeping better. She was able to speak to the clinic and feels much better about the situation surrounding the therapist and her false statements. Mental Status Exam MSE Comments: This is a morbidly obese white female in hospital scrubs with limited grooming and eye contact. No abnormal movements except for improving psychomotor retardation. Cooperative with exam in no acute distress. Speech was more normal rate and volume. Mood described as getting better, affect congruent. Thought process organized. Thought content: Patient denied suicidal or homicidal ideation, there were no delusions reported or noted, she denied any auditory visual hallucination. Attention and concentration appeared intact and memory appeared mostly reliable but none were formally tested. She is alert and oriented x3. Insight and judgment are improving impulse control is limited. Vitals/I&O/Wt Last Vital Signs Temp 97.1 F L 08/21/20 20:15 Pulse 63 08/21/20 20:15 Resp 15 08/21/20 20:15 BP 139/90 08/21/20 20:15 Pulse Ox 96 08/21/20 20:15 Data NPU : 08/18/20 20:15 08/18/20 20:15 A&P Additional A&P Information (1) Altered mental status: (2) Drug abuse: (3) Suicidal ideation: (4) Polysubstance abuse: (5) Atypical chest pain: (6) Abnormal uterine bleeding (AUB): (7) TIA (transient ischemic attack): (8) Yeast dermatitis: (9) History of borderline personality disorder: Additional A&P Information This is a 45-year-old white female with a long history of mental health treatment and services who presents with active addiction she identifies as a suicide attempt currently ambivalent about medication changes. 1. Continue current medication. 2. Continue every 15 minute checks for safety. 3. Encourage individual, group and milieu therapies. 4. Treatment team arranged ride for discharge in the morning. Involuntary Hold Information 96 Hour Hold: 96 Hour Involuntary Admission: No Attestations NPU Medical Necessity Statement*: Inpatient hospitalization is medically necessary and the clinically appropriate intervention at this time. We will monitor medications and make changes as indicated. Likely length of stay 1-3 days. Likely discharge in the morning. Coding Level of Care Code Acute Maintenance Associate for Marci Helms
[2020-08-21 20:03] LABS: Glucose Point of Care 84 mg/dL (70-110)
[2020-08-21 20:15] VITALS: BP 139/90; PULSE 63; RESP 15; TEMP 36.2; O2SAT 96
[2020-08-21] MEDS: ARIPiprazole 2 mg Tablet 4 MG PO (21:22)
[2020-08-21] MEDS: quetiapine 300 mg Tablet PO (21:23)
[2020-08-21] MEDS: calcium carbonate 500 mg Chew Tablet 1000 MG PO (22:13)
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
[2020-08-22 06:00] VITALS: BP 132/85; PULSE 70; RESP 18; TEMP 36.4; O2SAT 96
[2020-08-22] MEDS: metformin 500 mg Tablet 1000 MG PO (06:02)
[2020-08-22 06:49] LABS: Glucose Point of Care 127 mg/dL (70-110)
[2020-08-22] MEDS: chlorthalidone 25 mg Tablet PO (07:51)
[2020-08-22] MEDS: potassium chloride ER 20 mEq Tablet PO (07:51)
[2020-08-22] MEDS: isosorbide dinitrate 20 mg Tablet PO (07:51)
[2020-08-22] MEDS: apixaban 5 mg Tablet PO (07:51)
[2020-08-22] MEDS: pantoprazole DR 40 mg Tablet PO (07:51)
[2020-08-22] MEDS: metoprolol tartrate 50 mg Tablet 100 MG PO (07:52)
[2020-08-22] MEDS: ferrous sulfate EC 325 mg Tablet PO (07:52)
[2020-08-22] MEDS: desvenlafaxine 50 mg Tablet 100 MG PO (07:52)
[2020-08-22 09:28] VITALS: PULSE 70; RESP 18; O2SAT 96
[2020-08-22 11:54] VITALS: PULSE 70; RESP 18; O2SAT 96
== END 2020-08-22 13:36 | disposition home or self-care (01) | DRG 897 ==
LOC: ER 19:37 → NP 21:18
PROVIDERS: Admitting Provider Psychiatry & Neurology Psychiatry; Emergency Provider Family Medicine; PCP Nurse Practitioner Family; Visit Provider Psychiatry & Neurology Psychiatry
DX: F19.20 Other psychoactive substance dependence, uncomplicated (principal); Z68.43 Body mass index [BMI] 50.0-59.9, adult; R45.851 Suicidal ideations; R41.82 Altered mental status, unspecified; R11.2 Nausea with vomiting, unspecified; R19.7 Diarrhea, unspecified; F32.9 Major depressive disorder, single episode, unspecified; J44.9 Chronic obstructive pulmonary disease, unspecified; I10 Essential (primary) hypertension; G47.33 Obstructive sleep apnea (adult) (pediatric); Z86.718 Personal history of other venous thrombosis and embolism; Z86.711 Personal history of pulmonary embolism; Z86.73 Personal history of transient ischemic attack (TIA), and cerebral infarction without residual deficits; Z87.891 Personal history of nicotine dependence; Z91.5 Personal history of self-harm; E66.01 Morbid (severe) obesity due to excess calories; L30.8 Other specified dermatitis; N93.9 Abnormal uterine and vaginal bleeding, unspecified
CPT/HCPCS: 36415; 36416; 36600; 51702; 70450; 71045; 80053; 80306; 80307; 81001; 81003; 81025; 82805; 82962; 83605; 84484; 84703; 85025; 93005; 96360; 96372; 99284; 99285; G0378; J1200; J1630; J2060; J7030; Q0162

== ENCOUNTER 2020-09-29 11:07 | Outpatient (CLI) | payer MEDICARE, MEDICAID, SELFPAY ==
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
== END 2020-09-29 11:08 | disposition home or self-care (01) ==
LOC: RAD 11:16
PROVIDERS: PCP Nurse Practitioner Family; Visit Provider Nurse Practitioner Family
DX: M25.512 Pain in left shoulder (principal)
CPT/HCPCS: 73030

== ENCOUNTER 2020-10-05 11:58 | Outpatient (CLI) | payer MEDICARE, MEDICAID, SELFPAY ==
--- NOTE | 2020-10-05 12:03 | CT_ITS ---
WS: [id number] CT HEAD NONCONTRAST HISTORY: MEMORY CHANGES TECHNIQUE: Contiguous axial imaging performed through the brain in 2.5 mm imaging. Bone and soft tiss ue windows. All CT scans at [facility] use at least one of these dose optimization techniq ues: automated exposure control; mA and/or kV adjustment per patient size (includes targeted exams wh ere dose is matched to clinical indication); or iterative reconstruction. DLP: 859.77 mGycm COMPARISON: 08/17/2020 No acute intracranial hemorrhage, midline shift or mass effect. No atrophy or prior infarcts or herniation. Ventricles: Normal size with no hydrocephalus. Paranasal sinuses: As visualized are clear. Mastoid air cells: Well pneumatized. Calvarium and scalp: Skull is intact with no soft tissue edema or swelling. CT/CT head wo con* [id number] IMPRESSION: Negative head CT.
== END 2020-10-05 11:59 | disposition home or self-care (01) ==
LOC: RADWPI 12:00
PROVIDERS: PCP Nurse Practitioner Family; Visit Provider Nurse Practitioner Family
DX: R41.3 Other amnesia (principal)
CPT/HCPCS: 70450

== ENCOUNTER 2020-10-20 14:46 | Outpatient (CLI) | payer MEDICARE, MEDICAID, SELFPAY ==
--- NOTE | 2020-10-20 | CT_ITS ---
WS: [id number] NONCONTRAST CT OF THE LEFT SHOULDER TECHNIQUE: Noncontrast CT of the left shoulder with coronal and sagittal reformatted images. CLINICAL INFORMATION: ACUTE LEFT SHOULDER PAIN COMPARISON: None. DLP: 2524.[address] scans at [facility] use at least one of these dose optimization techniques: automat ed exposure control; mA and/or kV adjustment per patient size (includes targeted exams where dose is matched to clinical indication); or iterative reconstruction. FINDINGS: Noncontrast CT left shoulder. Mild degenerative arthritis at the AC joint. Mild downsloping of the ac romion. Distal clavicle appears intact. Mild narrowing of the subacromial space. Mild degenerative ar thritis glenohumeral joint with joint space narrowing. Bony glenoid is normal in appearance. Normal coracoid. Humeral head is normal in appearance. No acute fractures. Proximal humeral shaft is normal. Visualized left lung is normal in appearance. CT/CT shoulder LT wo con* [id number] IMPRESSION: 1. Normal anatomic alignment. No acute fractures. 2. Mild degenerative arthritis at the AC joint with mild rotator cuff arthropa thy. 3. Humeral head and neck are normal in appearance. No acute fractures. 4. Normal bony glenoid. 5. No other significant findings.
== END 2020-10-20 14:47 | disposition home or self-care (01) ==
PROVIDERS: PCP Nurse Practitioner Family; Visit Provider Nurse Practitioner Family
DX: M25.512 Pain in left shoulder (principal); M19.012 Primary osteoarthritis, left shoulder
CPT/HCPCS: 73200

== ENCOUNTER 2020-12-02 12:37 | Emergency (ER) | payer MEDICARE, MEDICAID, SELFPAY ==
[2020-12-02] VITALS (9 sets, daily range): BP systolic 99–152; BP diastolic 80–118; PULSE 104–114; RESP 16–22; TEMP 37.1; O2SAT 95–98; BMI 56.4
--- NOTE | 2020-12-02 12:49 | ECG_ITS ---
[facility] Test Date: 2020-12-02 Pat Name: Heladio Branch Department: Room: Gender: Female Ratoprinter: : 1975 Requested By: Marco Antonio Kyle Order Number: [id number] Cordoba MD: Kathy Anderson M.D. Measurements Intervals [place] Rate: 104 P: 38 WV: 161 QRS: 19 QRSD: 84 T: 55 QT: 331 QTc: 436 Interpretive Statements SINUS TACHYCARDIA ABNORMAL RHYTHM ECG Compared to ECG 08/17/2020 20:07:57 T-wave abnormality no longer present Electronically Signed On 12-02-2020 17:46:42 CDT by Kathy Anderson M.D. [id number]
--- NOTE | 2020-12-02 12:49 | XR_ITS ---
WS: [id number] Exam: XR chest 1V portable [id number] Date/Time of Exam: 12/02/2020 12:49 PM Reason For Exam: cp Comparison 08/17/2020. Findings: The lungs are clear and fully expanded. Costophrenic angles are sharp. No infiltrates. Bronchovascula r relief appears normal. Cardiac silhouette is unremarkable. Bony elements are intact. XR/XR chest 1V portable [id number] IMPRESSION: Unremarkable chest radiograph.
--- NOTE | 2020-12-02 13:19 | CT_ITS ---
WS: [id number] CT HEAD TECHNIQUE: Noncontrast CT of the head obtained from the skullbase to the vertex. CLINICAL INFORMATION: syncope, head injury COMPARISON: CT October 05, 2020 DLP: 818.[address] scans at [facility] use at least one of these dose optimization techniques: automat ed exposure control; mA and/or kV adjustment per patient size (includes targeted exams where dose is matched to clinical indication); or iterative reconstruction. FINDINGS: No evidence of intracranial hemorrhage or mass effect. Ventricular system and basal cisterns are stevenson nt. No extra-axial fluid collections. No evidence of mass or mass effect. Normal sharif-white differen tiation. Paranasal sinuses and mastoid air cells are well aerated. .Normal visualized soft tissues. CT/CT head wo con* [id number] IMPRESSION: 1. No evidence of intracranial hemorrhage or mass effect. 2. Mild small vessel changes. Mild parenchymal volume loss. 3. No acute intracranial findings.
--- NOTE | 2020-12-02 13:19 | ED_ITS ---
HPI - Chest Pain General: Chief Complaint: Chest Pain Stated Complaint: CHEST PAIN UPON BREATHING Time Seen by Provider: 12/02/20 12:56 Source: patient Mode of arrival: EMS Limitations: no limitations History of Present Illness: HPI narrative: Patient is a 45-year-old female with a history of hypertension, prior IN, pulmonary embolism, DVT, who presents to the emergency department with several complaints including chest pain that started about 2 hours ago. Chest pain is left-sided and radiates to her arm. She has had 3 syncopal episodes in the last 2 weeks, the last episode was today. In the ambulance she was given 2 nitroglycerin tablets and 324 mg of aspirin. She states that this helped her chest pain but it is still a 12/26. MD complaint: chest pain Pertinent past history: prior IN Onset (ago): hour(s) (2) Timing of current episode: constant Prior episodes: No Onset: during rest Pain location: left chest Pain radiation: left arm and back Severity: severe Quality: sharp Relieving factors: nitroglycerin Associated symptoms: Reports dyspnea and nausea; Deny abdominal pain, diaphoresis, fever(s), leg edema, palpitations, sense of impending doom, syncope or vomiting Treatment prior to arrival: aspirin and nitroglycerin Review of Systems General: Reports: 10 or more systems reviewed and unremarkable except in HPI and below Const: Denies: fever(s) or diaphoresis Card: Denies: palpitations or syncope Resp: Reports: dyspnea GI: Reports: nausea; Denies: abdominal pain or vomiting [facility] ED PFSH: Medical History (Updated 12/02/20 @ 21:34 by Jose Alberto Norman MD, [facility]) Atypical chest pain Body mass index (BMI) 45.0-49.9, adult Not motivated to lose weight Chronic constipation Controlled with medications followed by her primary care provider COPD (chronic obstructive pulmonary disease) Diagnosed in 2013 and is controlled with medication Depression Diagnosed at the age of 23 and has been on medication since then. She follows up with Dr. Benitez a psychiatrist and as well as therapy in [place]. She currently denies suicidal/homicidal ideation. Essential (primary) hypertension Diagnosed in 2019 and she follows up with Dr. Anderson and cardiology. Gastro-esophageal reflux disease without esophagitis Controlled with medication. H/O deep venous thrombosis Reports having a DVT in 2019 and states her warfarin dose was increased after this. She follows up with Dr. Crespo -had second DVT in 11/2019 and was taken off warfarin and is now on eliquis Obstructive sleep apnea Personal history of pulmonary embolism (~2012) States that she had a PE in 2012 and has been on warfarin since then. TIA (transient ischemic attack) Reports having had a TIA in 2019. Denies any neurological deficits. Followed by her primary care provider. Surgical History Status post conization of cervix Office LEEP procedure performed by Dr. Zelaya in 2005 for MARY-2 on Pap smear. 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 Status post knee surgery 2018-open knee surgery for torn ACL Status post left breast lumpectomy Patient reports having had 3 lumpectomies of her left breast in 1999, 2007 and 2009 for benign lesions. Family History Mother Hypertension Heart disease Grandmother Hypertension maternal and paternal Breast cancer maternal, diagnosed at age 43 Colon cancer maternal, diagnosed at age 63 Father Hypertension Grandfather Hypertension maternal and paternal Heart disease maternal Denies family history of Ovarian cancer Diabetes Uterine cancer Thyroid condition Stroke Social History Smoking and tobacco status: former smoker Second hand smoke exposure: Yes Alcohol intake: current Other details last substance use: last used 2013 per patient Lives independently: Yes Housing: House Marital status: Single Number of children: 0 service: No History of recent travel: No Female Reproductive History: Date of last menstrual period: 11/25/20 Physical Exam Const: COMMON NORMALS: no acute distress, patient oriented x3, no limitations, alert and well nourished NUTRITIONAL APPEARANCE: obese morbidly obese HENMT: COMMON NORMALS: normocephalic, atraumatic and moist oral mucous membranes HEAD & SCALP: normocephalic and atraumatic Neck/C-Spine: COMMON NORMALS: no meningeal signs and no JVD Chest: COMMONS NORMALS: normal inspection of the chest and normal palpation of entire chest wall Resp: COMMON NORMALS: normal respiratory effort, No retractions, No use of accessory muscles, clear to auscultation bilaterally and percussion normal AUSCULTATION: clear to auscultation bilaterally PERCUSSION: percussion normal Cardio: COMMON NORMALS: no JVD, regular rate, regular rhythm, S1 normal heart sound present, S2 normal heart sound present, No gallops present (Cardio), No clicks present (Cardio), No murmurs present (Cardio), No rub (Cardio) and Peripheral pulses 2+ throughout RATE: regular rate RHYTHM: regular rhythm HEART SOUNDS: S1 normal heart sound present and S2 normal heart sound present PERIPHERAL PULSES: Peripheral pulses 2+ throughout GI: COMMON NORMALS: Normal to inspection, nondistended, normoactive bowel sounds present, Soft to palpation, non-tender, No hepatosplenomegaly present, no masses and no bruits PALPATION: Yes Soft to palpation and Yes No hepatosplenomegaly present Extremity: COMMON NORMALS: normal to inspection, full ROM, capillary refill normal, no calf tenderness and no pedal edema Neuro: COMMON NORMALS: patient oriented x3 SENSORIUM/ORIENTATION: Yes alert MENINGEAL SIGNS: Yes no meningeal signs Course Reevaluation(s): Reevaluation #1: Discussed her lab and imaging findings with her. Negative for acute findings. Negative high-sensitivity troponin x2, D-dimer normal. Pain is improved with fentanyl injection. We will discharge her home with no new orders. She voiced understanding and is in agreement with the plan. Time: 16:43 Vital Signs: Vital signs: Vital Signs Temperature 98.7 F 12/02/20 12:41 Pulse Rate 114 H 12/02/20 17:09 Respiratory Rate 21 H 12/02/20 17:09 Blood Pressure 99/80 12/02/20 17:09 Pulse Oximetry 96 12/02/20 17:09 MDM - Chest Pain MDM Narrative: Medical decision making narrative: 45-year-old female patient who presented to the emergency department with chest pain following physical therapy activities today. Evaluation in the emergency department is unremarkable including negative high- sensitivity troponin x2, negative D-dimer. She is discharged home with no new orders. Medical Records: Attestation: I reviewed the patient's medical records. Lab Data: Attestation: I reviewed the patient's lab results. Labs: Lab Results 12/02/20 12/02/20 12/02/20 Range/Units 13:32 13:32 13:32 WBC 5.0 (4.0-10.0) 10^3/ uL RBC 5.13 (4.1-5.3) 10^6/u L Hgb 15.1 (11.5-15.3) g/dL Hct 45.3 (37.0-47.0) % MCV 88.3 (81-99) fL MCH 29.4 (28.0-34.0) pg MCHC 33.3 (30.0-36.0) g/dL RDW 15.3 H (12.1-15.1) % Plt Count 323 (130-400) 10^3/c mm MPV 10.9 H (7.4-10.4) fL Neut % (Auto) 55.1 % Lymph % (Auto) 35.4 % [place] % (Auto) 8.7 % Eos % (Auto) 0.2 % Baso % (Auto) 0.2 % Neut # (Auto) 2.74 (1.8-7.7) 10^3/u L Lymph # (Auto) 1.8 (0.8-4.8) 10^3/u L [place] # (Auto) 0.4 (0.2-0.9) 10^3/u L Eos # (Auto) 0.0 (0.0-0.8) 10^3/u L Baso # (Auto) 0.0 (0.0-0.1) 10^3/u L Nucleated RBC % (a uto) 0 % Nucleated RBCs # 0.0 /100WBC D-Dimer 0.30 (0-0.59) ug/mIFE U Sodium 137 (136-145) mmol/L Potassium 3.6 (3.5-5.1) mmol/L Chloride 95 L (98-107) mmol/L Carbon Dioxide 28 (22-29) mmol/L Anion Gap 17.6 (5-19) BUN 8 (6-20) mg/dL Creatinine 0.9 (0.5-0.9) mg/dL GFR Calculation 68.3 L (90-130) mL/min Glucose 148 H (65-115) mg/dL Calculated Osmolal ity 285 (285-295) mOsm/k g Calcium 9.3 (8.5-10.5) mg/dL Total Bilirubin 0.2 (0.15-1.2) mg/dL AST 26 (0-32) U/L ALT 44 H (0-33) U/L Alkaline Phosphata se 102 (35-105) IU/L Troponin T Baselin e (0-10) ng/L Troponin T 120 Min [place] (0-10) ng/L Delta Troponin T (0-10) ABS# Total Protein 7.6 (6.6-8.7) g/dL Albumin 4.5 (3.5-5.2) g/dL Globulin 3.1 (1.3-4.6) g/dL Lipase 85 H (13-60) U/L HCG, Qual (Negative) 12/02/20 12/02/20 12/02/20 Range/Units 13:32 13:32 15:45 WBC (4.0-10.0) 10^3/ uL RBC (4.1-5.3) 10^6/u L Hgb (11.5-15.3) g/dL Hct (37.0-47.0) % MCV (81-99) fL MCH (28.0-34.0) pg MCHC (30.0-36.0) g/dL RDW (12.1-15.1) % Plt Count (130-400) 10^3/c mm MPV (7.4-10.4) fL Neut % (Auto) % Lymph % (Auto) % [place] % (Auto) % Eos % (Auto) % Baso % (Auto) % Neut # (Auto) (1.8-7.7) 10^3/u L Lymph # (Auto) (0.8-4.8) 10^3/u L [place] # (Auto) (0.2-0.9) 10^3/u L Eos # (Auto) (0.0-0.8) 10^3/u L Baso # (Auto) (0.0-0.1) 10^3/u L Nucleated RBC % (a uto) % Nucleated RBCs # /100WBC D-Dimer (0-0.59) ug/mIFE U Sodium (136-145) mmol/L Potassium (3.5-5.1) mmol/L Chloride (98-107) mmol/L Carbon Dioxide (22-29) mmol/L Anion Gap (5-19) BUN (6-20) mg/dL Creatinine (0.5-0.9) mg/dL GFR Calculation (90-130) mL/min Glucose (65-115) mg/dL Calculated Osmolal ity (285-295) mOsm/k g Calcium (8.5-10.5) mg/dL Total Bilirubin (0.15-1.2) mg/dL AST (0-32) U/L ALT (0-33) U/L Alkaline Phosphata se (35-105) IU/L Troponin T Baselin e 6 (0-10) ng/L Troponin T 120 Min [place] 6.00 (0-10) ng/L Delta Troponin T 0 (0-10) ABS# Total Protein (6.6-8.7) g/dL Albumin (3.5-5.2) g/dL Globulin (1.3-4.6) g/dL Lipase (13-60) U/L HCG, Qual Negative (Negative) Imaging Data^: CT Head: Attestation: I personally reviewed and interpreted this imaging study as follows: Radiologist's impression: [address] [id number] Scan ReportSigned Patient: Heladio Branch #: [id number]: 1975Acct#:[id number]/Sex: 45 / FADM Date: 12/02/20Loc: ERRoom/Bed:Attending Dr: Ordering Provider/Ordering MD: Jose Alberto Norman MD, [facility] Date of Service: 12/02/20 Procedure(s): CT head wo con* [id number] Accession Number(s): [id number] Report Number: [id number] WS: [id number] CT HEAD TECHNIQUE: Noncontrast CT of the head obtained from the skullbase to the vertex. CLINICAL INFORMATION: syncope, head injury COMPARISON: CT October 05, 2020 DLP: 818.[address] scans at [facility] use at least one of these dose optimiz ation techniques: automated exposure control; mA and/or kV adjustment per patient size (includes targeted exams where dose is matched to clinical indication); or iterative reconstruction. FINDINGS: No evidence of intracranial hemorrhage or mass effect. Ventricular system and basal cisterns are patent. No extra-axial fluid collections. No evidence of mass or mass effect. Normal sharif-white differentiation. Paranasal sinuses and mastoid air cells are well aerated. .Normal visualized soft tissues. CT/CT head wo con* [id number] IMPRESSION: 1. No evidence of intracranial hemorrhage or mass effect. 2. Mild small vessel changes. Mild parenchymal volume loss. 3. No acute intracranial findings. Dictated By:Sathya Hill MDSigned By:Sathya Hill D ate/Time:12/02/20 1414DD/ 1406 CXR: Attestation: I personally reviewed and interpreted this imaging study as follows: Radiologist's impression: [facility] [address], [place] [address]VXka ReportSigned Patient: Heladio Branch #: [id number]: 1975Acct#:[id number]/Sex: 45 / FADM Date: 12/02/20Loc: ERRoom/Bed:Attending Dr: Ordering Provider/Ordering MD: Marco Antonio Kyle Date of Service: 12/02/20 Procedure(s): XR chest 1V portable [id number] Accession Number(s): [id number] Report Number: [id number] WS: [id number] Exam: XR chest 1V portable [id number] Date/Time of Exam: 12/02/2020 12:49 PM Reason For Exam: cp Comparison 08/17/2020. Findings: The lungs are clear and fully expanded. Costophrenic angles are sharp. No infiltrates. Bronchovascular relief appears normal. Cardiac silhouette is unremarkable. Bony elements are intact. XR/XR chest 1V portable [id number] IMPRESSION: Unremarkable chest radiograph. Dictated By:Santosigned By:Kimberly Michelle Date/Time:12/02/20 1305DD/ 1304 EKG Data^: EKG 1: Attestation: I personally reviewed and interpreted this EKG as follows: EKG interpretation date: 12/02/20 EKG interpretation time: 12:52 Prior EKG tracings: not available for review Interpretation: Sinus tachycardia. Heart rate [address] changes. EKG 2: Attestation: I personally reviewed and interpreted this EKG as follows: EKG interpretation date: 12/02/20 EKG interpretation time: 14:35 Prior EKG tracings: available for review Interpretation: Sinus rhythm. Heart rate [address] changes. Normal axis. Discharge Plan Discharge Patient Disposition: Home Clinical Impression: Chest pain, non-cardiac, Syncope Condition: Stable Prescriptions: Continued albuterol sulfate [Ventolin HFA] 90 mcg/actuation HFA aerosol inhaler 2 puff INHALATION QID PRN (Reason: Shortness Of Breath) RF: 0 ferrous sulfate 325 mg (65 mg iron) tablet 325 mg PO QAM RF: 0 quetiapine 300 mg tablet 300 mg PO BEDTIME RF: 0 metformin 500 mg tablet 1,000 mg PO BID RF: 0 metoprolol tartrate 50 mg tablet 100 mg PO BID RF: 0 Mirena 20 mcg/24 hours (5 yrs) 52 mg intrauterine device 1 device INTRAUTERI .every 5 years Qty: 1 RF: 0 alprazolam [Xanax] 2 mg Tablet 2 mg PO TID PRN (Reason: Anxiety) RF: 0 desvenlafaxine 100 mg Tablet Extended Release 24 Hr 100 mg PO QAM RF: 0 potassium chloride 20 mEq tablet,ER particles/crystals 20 meq PO QAM RF: 0 isosorbide dinitrate 20 mg tablet 20 mg PO BID RF: 0 desipramine 100 mg tablet 100 mg PO QAM RF: 0 cholecalciferol (vitamin D3) 1,250 mcg (50,000 unit) capsule 1,250 mcg PO Q7D RF: 0 glipizide 5 mg tablet 5 mg PO BID RF: 0 Eliquis 5 mg tablet 5 mg PO BID RF: 0 aripiprazole 5 mg tablet 5 mg PO BEDTIME RF: 0 omeprazole 40 mg Capsule,Delayed Release(Dr/Ec) 40 mg PO BEDTIME RF: 0 aspirin 81 mg Tablet,Delayed Release (Dr/Ec) 81 mg PO ONCE RF: 0 nystatin 100,000 unit/gram cream 1 applic TOPICAL BID PRN (Reason: Rash) RF: 0 ibuprofen 200 mg Tablet 800 mg PO PRN RF: 0 Alive Women's Gummy Vitamin 200 mcg- 37.5 mg Tablet,Chewable 1 tab PO QAM RF: 0 chlorthalidone 25 mg tablet 25 mg PO QAM RF: 0 Discharge Orders: Discharge ED (Routine); Ordered 12/02/20 Ordered By: Jose Alberto Norman Referrals: Christa Chew APN [Primary Care Provider] - 1-3 days Discharge Diet: Usual diet Discharge Activity: Increase activity as tolerated Patient Instructions: Noncardiac Chest Pain (ED) Activity Restrictions/Additional Instructions: Return for any new or worsening symptoms. Follow-up with your primary care provider within 3 days. Continue home medications. Coding Level of Care Code ED [employer] for Chg Fwd Exam Comprehensive
[2020-12-02] MEDS: morphine 4 mg/mL SDV 1 mL IVP (13:33)
[2020-12-02] MEDS: ondansetron 2 mg/ML SDV 2 mL 4 MG IVP (13:33)
[2020-12-02 13:41] LABS: Basophils % 0.2 %; Eosinophils % 0.2 %; Hematocrit 45.3 % (37.0-47.0); Hemoglobin 15.1 g/dL (11.5-15.3); Lymphocytes # 1.8 10^3/uL (0.8-4.8); Lymphocytes % 35.4 %; Mean Corpuscular HGB Conc 33.3 g/dL (30.0-36.0); Mean Corpuscular Hemoglobin 29.4 pg (28.0-34.0); Mean Corpuscular Volume 88.3 fL (81-99); Mean Platelet Volume 10.9 fL (7.4-10.4); Monocytes # 0.4 10^3/uL (0.2-0.9); Monocytes % 8.7 %; Neutrophils # 2.74 10^3/uL (1.8-7.7); Neutrophils % 55.1 %; Nucleated Red Blood Cells % 0 %; Platelet Count 323 10^3/cmm (130-400); Red Blood Count 5.13 10^6/uL (4.1-5.3); Red Cell Distribution Width 15.3 % (12.1-15.1)
[2020-12-02 13:59] LABS: HCG, Serum Qual Negative (Negative)
[2020-12-02 14:23] LABS: Troponin(5th) Baseline 6 ng/L (0-10)
[2020-12-02 14:24] LABS: Alanine Aminotransferase 44 U/L (0-33); Albumin Level 4.5 g/dL (3.5-5.2); Alkaline Phosphatase 102 IU/L (35-105); Anion Gap 17.6 (5-19); Aspartate Amino Transferase 26 U/L (0-32); Blood Urea Nitrogen 8 mg/dL (6-20); Calcium 9.3 mg/dL (8.5-10.5); Carbon Dioxide 28 mmol/L (22-29); Chloride 95 mmol/L (98-107); Globulin 3.1 g/dL (1.3-4.6); Glomerular Filtration Rate 68.3 mL/min (90-130); Glucose 148 mg/dL (65-115); Lipase 85 U/L (13-60); Osmolality Calculated 285 mOsm/kg (285-295); Potassium 3.6 mmol/L (3.5-5.1); Sodium 137 mmol/L (136-145); Total Bilirubin 0.2 mg/dL (0.15-1.2); Total Protein 7.6 g/dL (6.6-8.7)
--- NOTE | 2020-12-02 14:49 | ECG_ITS ---
[facility] Test Date: 2020-12-02 Pat Name: Heladio Branch Department: Room: Gender: Female Yarn Carrier: : 1975 Requested By: Marco Antonio Kyle Order Number: [id number] Adalid MD: Kathy Anderson M.D. Measurements Intervals [place] Rate: 76 P: 43 [place]: 142 QRS: 34 QRSD: 103 T: 60 QT: 371 QTc: 418 Interpretive Statements SINUS RHYTHM Compared to ECG 12/02/2020 12:51:51 Sinus tachycardia no longer present Electronically Signed On 12-02-2020 17:51:26 CDT by Kathy Anderson M.D. [email or web address]
[2020-12-02] MEDS: nitroglycerin 1 gm/inch oint Pkt 1 INCH TOPICAL (15:30)
[2020-12-02] MEDS: fentaNYL 50 mcg/mL INJ 2mL 100 MCG IVP (16:08)
[2020-12-02 16:21] LABS: Troponin 5 2HR Delta 0 ABS# (0-10)
== END 2020-12-02 17:00 | disposition home or self-care (01) ==
PROVIDERS: Physician Assistant; Emergency Provider Family Medicine; PCP Nurse Practitioner Family
DX: R07.89 Other chest pain (principal); R55 Syncope and collapse; Z79.84 Long term (current) use of oral hypoglycemic drugs; Z79.01 Long term (current) use of anticoagulants; Z79.82 Long term (current) use of aspirin; J44.9 Chronic obstructive pulmonary disease, unspecified; I10 Essential (primary) hypertension; Z86.73 Personal history of transient ischemic attack (TIA), and cerebral infarction without residual deficits; Z87.891 Personal history of nicotine dependence
CPT/HCPCS: 70450; 71045; 80053; 83690; 84484; 84703; 85025; 85378; 93005; 96374; 96375; 99284; J2270; J2405; J3010

== ENCOUNTER 2021-01-04 05:01 | Emergency (ER) | payer MEDICARE, MEDICAID, SELFPAY ==
[2021-01-04] VITALS (8 sets, daily range): BP systolic 104–153; BP diastolic 63–103; PULSE 90–97; RESP 14–28; TEMP 36.8; O2SAT 96–97; BMI 56.1
[2021-01-04] MEDS: sodium chloride 0.9% 1,000 ML 999 ML IV (05:24)
[2021-01-04 05:25] LABS: Basophils % 0.2 %; Eosinophils % 0.2 %; Hematocrit 41.7 % (37.0-47.0); Hemoglobin 13.5 g/dL (11.5-15.3); Lymphocytes # 1.8 10^3/uL (0.8-4.8); Lymphocytes % 29.7 %; Mean Corpuscular HGB Conc 32.4 g/dL (30.0-36.0); Mean Corpuscular Hemoglobin 29.7 pg (28.0-34.0); Mean Corpuscular Volume 91.6 fL (81-99); Mean Platelet Volume 10.8 fL (7.4-10.4); Monocytes # 0.5 10^3/uL (0.2-0.9); Monocytes % 8.1 %; Neutrophils # 3.65 10^3/uL (1.8-7.7); Neutrophils % 61.3 %; Nucleated Red Blood Cells % 0 %; Platelet Count 248 10^3/cmm (130-400); Red Blood Count 4.55 10^6/uL (4.1-5.3); Red Cell Distribution Width 14.6 % (12.1-15.1)
[2021-01-04 05:40] LABS: INR 0.96 (0.8-1.2)
[2021-01-04 05:41] LABS: Partial Thromboplastin Time 29.8 SECONDS (23.9-36.7)
[2021-01-04 05:44] LABS: Alanine Aminotransferase 36 U/L (0-33); Albumin Level 3.7 g/dL (3.5-5.2); Alkaline Phosphatase 78 IU/L (35-105); Anion Gap 16.7 (5-19); Aspartate Amino Transferase 20 U/L (0-32); Blood Urea Nitrogen 14 mg/dL (6-20); C Reactive Protein 16.7 mg/L (0.0-4.9); Calcium 9.6 mg/dL (8.5-10.5); Carbon Dioxide 28 mmol/L (22-29); Chloride 95 mmol/L (98-107); Globulin 3.1 g/dL (1.3-4.6); Glomerular Filtration Rate 60.5 mL/min (90-130); Glucose 178 mg/dL (65-115); HCG, Serum Qual Negative (Negative); Lipase 66 U/L (13-60); Osmolality Calculated 287 mOsm/kg (285-295); Potassium 3.7 mmol/L (3.5-5.1); Sodium 136 mmol/L (136-145); Total Bilirubin 0.2 mg/dL (0.15-1.2); Total Protein 6.8 g/dL (6.6-8.7)
[2021-01-04 05:54] LABS: Add Urine Microscopic? YES; Bilirubin Urine 1+ (Negative); Blood Urine 3+ (Negative); Glucose Urine UA Norm (Normal); Ketones Urine Negative (Negative); Leukocyte Esterase Urine Negative (Negative); Nitrate Urine Negative (Negative); Protein Urine Neg (Negative); Urine Appearance Clear (CLEAR); Urine Color Yellow (Yellow); Urobilinogen Urine 1 mg/dL (Negative); pH Urine 5 (5-7)
[2021-01-04 05:55] LABS: Add Urine Culture? No; Bacteria Urine TRACE /hpf; Mucus Urine 1+ /hpf; Squamous Epithelial Cell Urine 0-4 /hpf (0-5)
[2021-01-04] MEDS: pantoprazole 40 mg SDV 80 MG IVP (06:06)
[2021-01-04] MEDS: ondansetron 2 mg/ML SDV 2 mL 4 MG IVP (06:16)
--- NOTE | 2021-01-04 06:16 | CTR_ITS ---
PROCEDURE INFORMATION: Exam: CT Abdomen And Pelvis With Contrast Exam date and time: 01/04/2021 6:16 AM Age: 45 years old Clinical indication: Abdominal pain; Acute; Additional info: Abd pain - diffused TECHNIQUE: Imaging protocol: Computed tomography of the abdomen and pelvis with contrast. Radiation optimization: All CT scans at this facility use at least one of these dose optimization techniques: automated exposure control; mA and/or kV adjustment per patient size (includes targeted exams where dose is matched to clinical indication); or iterative reconstruction. Contrast material: OMNI 300; Contrast volume: 95 ml; Contrast route: INTRAVENOUS (IV); COMPARISON: CT kidney stone [id number] 01/04/2021 6:45 AM RADIATION DOSE METRICS: Total DLP (mGy-cm): 2354.99 FINDINGS: Liver: Fatty liver. No liver mass. Gallbladder and bile ducts: Normal. No calcified stones. No ductal dilation. Pancreas: Normal. No ductal dilation. Spleen: Normal. No splenomegaly. Adrenal glands: Normal. No mass. Kidneys and ureters: There is no hydronephrosis or renal stone. No renal masses are seen. There is a retroaortic left renal vein. Stomach and bowel: Scattered diverticuli present on the colon. There is no evidence of acute diverticulitis. There is no bowel obstruction or dilatation. Appendix: No evidence of appendicitis. Intraperitoneal space: Unremarkable. No free air. No significant fluid collection. Vasculature: See Kidneys and ureters finding. Lymph nodes: Unremarkable. No enlarged lymph nodes. Urinary bladder: Unremarkable as visualized. Reproductive: An IUD is present in the uterus. An IUD is present in the uterus. Bones/joints: Unremarkable. No acute fracture. Soft tissues: Unremarkable. CT/CT abdomen pelvis w con* [id number] IMPRESSION: 1. No acute abnormality. 2. Diverticulosis but no evidence of acute diverticulitis. 3. Fatty liver. Radiation Dose CTDIVOL = (mGy): DLP = 2354.99 (mGy-cm)
--- NOTE | 2021-01-04 06:17 | CTR_ITS ---
PROCEDURE INFORMATION: Exam: CT Abdomen And Pelvis Without Contrast Exam date and time: 01/04/2021 6:17 AM Age: 45 years old Clinical indication: Abdominal tenderness; Additional info: Flank pain - bi lat TECHNIQUE: Imaging protocol: Computed tomography of the abdomen and pelvis without contrast. Radiation optimization: All CT scans at this facility use at least one of these dose optimization techniques: automated exposure control; mA and/or kV adjustment per patient size (includes targeted exams where dose is matched to clinical indication); or iterative reconstruction. COMPARISON: CT abdomen pelvis w con* [id number] 03/17/2020 8:43 PM RADIATION DOSE METRICS: Total DLP (mGy-cm): 2520.49 FINDINGS: Liver: Fatty liver. No liver masses are seen. Gallbladder and bile ducts: Normal. No calcified stones. No ductal dilation. Pancreas: Normal. No ductal dilation. Spleen: Normal. No splenomegaly. Adrenal glands: Normal. No mass. Kidneys and ureters: Normal. No hydronephrosis. Stomach and bowel: There are scattered diverticuli in the colon but there is no evidence of acute diverticulitis. There is no bowel obstruction or dilatation. Appendix: The appendix is normal. Intraperitoneal space: Unremarkable. No free air. No significant fluid collection. Vasculature: Unremarkable. No abdominal aortic aneurysm. Lymph nodes: Unremarkable. No enlarged lymph nodes. Urinary bladder: Unremarkable as visualized. Reproductive: An IUD is present in the uterus. Bones/joints: Unremarkable. No acute fracture. Soft tissues: Unremarkable. CT/CT kidney stone [id number] IMPRESSION: 1. No acute abnormality. 2. Diverticulosis. No evidence of diverticulitis. 3. Fatty liver. Radiation Dose CTDIVOL = (mGy): DLP = 2520.49 (mGy-cm)
[2021-01-04] MEDS: iohexol 300 mg/mL 100 mL Btl IV (07:07)
--- NOTE | 2021-01-04 07:08 | PC.NURSE ---
Assumed care from shift supervisor melting at this time.
--- NOTE | 2021-01-04 07:14 | W.ED.ABDPA2 ---
HPI - Abdominal Pain General: Chief Complaint: Abdominal Pain Stated Complaint: ABD PAIN Time Seen by Provider: 01/04/21 06:11 History of Present Illness: HPI narrative: 45-year-old female presents emergency room with complaints of epistaxis hematemesis and melanotic stools. Began early last week. She was seen 1 week ago at her doctor's office was having abdominal discomfort at that point but had no signs of any blood anywhere. She was given Zofran that seems to help. She not noticed a fever at home. She is on Eliquis for MD elicited complaint: abdominal pain Pertinent past history: other (On oral anticoagulants) Onset (ago): week(s) (1) Pain Consistency: intermittent Location: RLQ Severity: mild Quality: cramping Radiation: none Migration to: no migration Exacerbating factors: nothing Relieving factors: nothing Associated Symptoms: Denies anorexia, belching, bloating, change in bowel habits, change in stool character, chills, coffee ground emesis, constipation, GI cramping, diarrhea, dyspepsia, dysuria, excessive flatus, fever(s), heartburn, hematochezia, hematuria, hematemesis, fecal incontinence, loose stools, melena, nausea, poor appetite, syncope and vomiting Related Data: Date of Last Menstrual Period: 12/28/20 Review of Systems Const: Denies: fever(s) or chills ENMT: Denies: throat pain, ear or mastoid pain, nasal discharge or nasal congestion Card: Denies: syncope Resp: Denies: dyspnea, productive cough or non-productive cough GI: Denies: nausea, vomiting, hematemesis, coffee ground emesis, heartburn, diarrhea, constipation, bloating, GI cramping, belching, excessive flatus, fecal incontinence, change in bowel habits, change in stool character, hematochezia or melena : Denies: dysuria or hematuria Skin/Breast: Denies: rash or pruritus PFSH ED PFSH: Medical History Atypical chest pain Body mass index (BMI) 45.0-49.9, adult Not motivated to lose weight Chronic constipation Controlled with medications followed by her primary care provider COPD (chronic obstructive pulmonary disease) Diagnosed in 2013 and is controlled with medication Depression Diagnosed at the age of 23 and has been on medication since then. She follows up with Dr. Benitez a psychiatrist and as well as therapy in [place]. She currently denies suicidal/homicidal ideation. Essential (primary) hypertension Diagnosed in 2019 and she follows up with Dr. Anderson and cardiology. Gastro-esophageal reflux disease without esophagitis Controlled with medication. H/O deep venous thrombosis Reports having a DVT in 2019 and states her warfarin dose was increased after this. She follows up with Dr. Crespo -had second DVT in 11/2019 and was taken off warfarin and is now on eliquis Obstructive sleep apnea Personal history of pulmonary embolism (~2012) States that she had a PE in 2012 and has been on warfarin since then. TIA (transient ischemic attack) Reports having had a TIA in 2019. Denies any neurological deficits. Followed by her primary care provider. Surgical History Status post conization of cervix Office LEEP procedure performed by Dr. Zelaya in 2005 for MARY-2 on Pap smear. 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 Status post knee surgery 2018-open knee surgery for torn ACL Status post left breast lumpectomy Patient reports having had 3 lumpectomies of her left breast in 1999, 2007 and 2009 for benign lesions. Family History Mother Hypertension Heart disease Grandmother Hypertension maternal and paternal Breast cancer maternal, diagnosed at age 43 Colon cancer maternal, diagnosed at age 63 Father Hypertension Grandfather Hypertension maternal and paternal Heart disease maternal Denies family history of Ovarian cancer Diabetes Uterine cancer Thyroid condition Stroke Social History Smoking and tobacco status: former smoker Second hand smoke exposure: Yes Alcohol intake: current Other details last substance use: last used 2013 per patient Lives independently: Yes Housing: House Marital status: Single Number of children: 0 service: No History of recent travel: No Female Reproductive History: Date of last menstrual period: 12/28/20 Physical Exam Const: COMMON NORMALS: no acute distress GENERAL APPEARANCE: cooperative and comfortable ORIENTATION/CONSCIOUSNESS: Yes awake, Yes oriented to person, Yes oriented to place and Yes oriented to time HENMT: COMMON NORMALS: normocephalic, atraumatic and hearing grossly normal bilaterally HEAD & SCALP: normocephalic and atraumatic Resp: COMMON NORMALS: normal respiratory effort, No retractions, No use of accessory muscles and clear to auscultation bilaterally AUSCULTATION: clear to auscultation bilaterally Cardio: COMMON NORMALS: regular rate, regular rhythm and No murmurs present (Cardio) RATE: regular rate RHYTHM: regular rhythm GI: COMMON NORMALS: Soft to palpation and No hepatosplenomegaly present AUSCULTATION: Yes normoactive bowel sounds PALPATION: Yes Soft to palpation, No Tenderness to palpation present (GI), No Guarding due to palpation present (GI) and Yes No hepatosplenomegaly present Extremity: COMMON NORMALS: normal to inspection, capillary refill normal, no clubbing, cyanosis or edema, no calf tenderness and no pedal edema Neuro: SENSORIUM/ORIENTATION: Yes oriented to person, Yes oriented to place and Yes oriented to time Skin: COMMON NORMALS: no rashes or lesions noted GENERAL SKIN EXAM: no rashes or lesions noted Course Vital Signs: Vital signs: Vital Signs Temperature 98.3 F 01/04/21 05:01 Pulse Rate 94 01/04/21 09:00 Respiratory Rate 14 01/04/21 09:00 Blood Pressure 128/103 01/04/21 09:00 Pulse Oximetry 97 01/04/21 09:00 MDM - Abdominal Pain MDM Narrative: Medical decision making narrative: CT abdomen does not show anything acute hemoglobin stable BUN normal is no sign of any active bleeding rectal exam done in the exam room was Hemoccult negative. We will go ahead and discharge the patient switch her to promethazine. We will set her up for endoscopy with outpatient surgery. Turn if has further problems for now would recommend to continue the Eliquis since there is no sign of significant bleeding and she does have a history of DVT and PE. Lab Data: Attestation: I reviewed the patient's lab results. Labs: Lab Results 01/04/21 01/04/21 01/04/21 Range/Units 04:55 04:55 04:55 WBC 6.0 (4.0-10.0) 10^3/ uL RBC 4.55 (4.1-5.3) 10^6/u L Hgb 13.5 (11.5-15.3) g/dL Hct 41.7 (37.0-47.0) % MCV 91.6 (81-99) fL MCH 29.7 (28.0-34.0) pg MCHC 32.4 (30.0-36.0) g/dL RDW 14.6 (12.1-15.1) % Plt Count 248 (130-400) 10^3/c mm MPV 10.8 H (7.4-10.4) fL Neut % (Auto) 61.3 % Lymph % (Auto) 29.7 % [place] % (Auto) 8.1 % Eos % (Auto) 0.2 % Baso % (Auto) 0.2 % Neut # (Auto) 3.65 (1.8-7.7) 10^3/u L Lymph # (Auto) 1.8 (0.8-4.8) 10^3/u L [place] # (Auto) 0.5 (0.2-0.9) 10^3/u L Eos # (Auto) 0.0 (0.0-0.8) 10^3/u L Baso # (Auto) 0.0 (0.0-0.1) 10^3/u L Nucleated RBC % (a uto) 0 % Nucleated RBCs # 0.0 /100WBC PT (12.1-14.9) SECO NDS INR (0.8-1.2) APTT (23.9-36.7) SECO NDS Sodium 136 (136-145) mmol/L Potassium 3.7 (3.5-5.1) mmol/L Chloride 95 L (98-107) mmol/L Carbon Dioxide 28 (22-29) mmol/L Anion Gap 16.7 (5-19) BUN 14 (6-20) mg/dL Creatinine 1.0 H (0.5-0.9) mg/dL GFR Calculation 60.5 L (90-130) mL/min Glucose 178 H (65-115) mg/dL Calculated Osmolal ity 287 (285-295) mOsm/k g Calcium 9.6 (8.5-10.5) mg/dL Total Bilirubin 0.2 (0.15-1.2) mg/dL AST 20 (0-32) U/L ALT 36 H (0-33) U/L Alkaline Phosphata se 78 (35-105) IU/L C-Reactive Protein 16.7 H (0.0-4.9) mg/L Total Protein 6.8 (6.6-8.7) g/dL Albumin 3.7 (3.5-5.2) g/dL Globulin 3.1 (1.3-4.6) g/dL Lipase 66 H (13-60) U/L HCG, Qual Negative (Negative) Urine Color (Yellow) Urine Appearance (CLEAR) Urine pH (5-7) Ur Specific Gravit y (1.005-1.030) Urine Protein (Negative) Urine Glucose (UA) (Normal) Urine Ketones (Negative) Urine Blood (Negative) Urine Nitrate (Negative) Urine Bilirubin (Negative) Urine Urobilinogen (Negative) mg/dL Ur Leukocyte Ana Paula ase (Negative) Urine RBC (0-2) /hpf Urine WBC (0-5) /hpf Ur Squamous Epith Cells (0-5) /hpf Amorphous Sediment Urine Bacteria (NONE) /hpf Urine Mucus /hpf Blood Type Rho(D) Type Antibody Screen 01/04/21 01/04/21 01/04/21 Range/Units 04:55 04:55 05:16 WBC (4.0-10.0) 10^3/ uL RBC (4.1-5.3) 10^6/u L Hgb (11.5-15.3) g/dL Hct (37.0-47.0) % MCV (81-99) fL MCH (28.0-34.0) pg MCHC (30.0-36.0) g/dL RDW (12.1-15.1) % Plt Count (130-400) 10^3/c mm MPV (7.4-10.4) fL Neut % (Auto) % Lymph % (Auto) % [place] % (Auto) % Eos % (Auto) % Baso % (Auto) % Neut # (Auto) (1.8-7.7) 10^3/u L Lymph # (Auto) (0.8-4.8) 10^3/u L [place] # (Auto) (0.2-0.9) 10^3/u L Eos # (Auto) (0.0-0.8) 10^3/u L Baso # (Auto) (0.0-0.1) 10^3/u L Nucleated RBC % (a uto) % Nucleated RBCs # /100WBC PT 13.10 (12.1-14.9) SECO NDS INR 0.96 (0.8-1.2) APTT 29.8 (23.9-36.7) SECO NDS Sodium (136-145) mmol/L Potassium (3.5-5.1) mmol/L Chloride (98-107) mmol/L Carbon Dioxide (22-29) mmol/L Anion Gap (5-19) BUN (6-20) mg/dL Creatinine (0.5-0.9) mg/dL GFR Calculation (90-130) mL/min Glucose (65-115) mg/dL Calculated Osmolal ity (285-295) mOsm/k g Calcium (8.5-10.5) mg/dL Total Bilirubin (0.15-1.2) mg/dL AST (0-32) U/L ALT (0-33) U/L Alkaline Phosphata se (35-105) IU/L C-Reactive Protein (0.0-4.9) mg/L Total Protein (6.6-8.7) g/dL Albumin (3.5-5.2) g/dL Globulin (1.3-4.6) g/dL Lipase (13-60) U/L HCG, Qual (Negative) Urine Color Yellow (Yellow) Urine Appearance Clear (CLEAR) Urine pH 5 (5-7) Ur Specific Gravit y 1.020 (1.005-1.030) Urine Protein Neg (Negative) Urine Glucose (UA) Norm (Normal) Urine Ketones Negative (Negative) Urine Blood 3+ H (Negative) Urine Nitrate Negative (Negative) Urine Bilirubin 1+ H (Negative) Urine Urobilinogen 1 H (Negative) mg/dL Ur Leukocyte Ana Paula ase Negative (Negative) Urine RBC 5-10 H (0-2) /hpf Urine WBC None (0-5) /hpf Ur Squamous Epith Cells 0-4 H (0-5) /hpf Amorphous Sediment Not Reportable Urine Bacteria Trace (NONE) /hpf Urine Mucus 1+ /hpf Blood Type A Positive Rho(D) Type Positive / 4+ Antibody Screen Negative Discharge Plan Discharge Patient Disposition: Home Clinical Impression: Hematemesis, Epistaxis Condition: Stable Prescriptions: New promethazine 25 mg tablet 25 mg PO Q6H PRN (Reason: nausea and vomiting) Qty: 20 RF: 0 No Action albuterol sulfate [Ventolin HFA] 90 mcg/actuation HFA aerosol inhaler 2 puff INHALATION QID PRN (Reason: Shortness Of Breath) RF: 0 ferrous sulfate 325 mg (65 mg iron) tablet 325 mg PO QAM RF: 0 quetiapine 300 mg tablet 300 mg PO BEDTIME RF: 0 metformin 500 mg tablet 1,000 mg PO BID RF: 0 metoprolol tartrate 50 mg tablet 100 mg PO BID RF: 0 Mirena 20 mcg/24 hours (5 yrs) 52 mg intrauterine device 1 device INTRAUTERI .every 5 years Qty: 1 RF: 0 alprazolam [Xanax] 2 mg Tablet 2 mg PO TID PRN (Reason: Anxiety) RF: 0 desvenlafaxine 100 mg Tablet Extended Release 24 Hr 100 mg PO DAILY RF: 0 potassium chloride 20 mEq tablet,ER particles/crystals 20 meq PO DAILY RF: 0 isosorbide dinitrate 20 mg tablet 20 mg PO BID RF: 0 desipramine 100 mg tablet 100 mg PO DAILY RF: 0 cholecalciferol (vitamin D3) 1,250 mcg (50,000 unit) capsule 1,250 mcg PO Q7D RF: 0 glipizide 5 mg tablet 5 mg PO BID RF: 0 Eliquis 5 mg tablet 5 mg PO BID RF: 0 aripiprazole 5 mg tablet 5 mg PO BEDTIME RF: 0 omeprazole 40 mg Capsule,Delayed Release(Dr/Ec) 40 mg PO BEDTIME RF: 0 nystatin 100,000 unit/gram cream 1 applic TOPICAL BID PRN (Reason: Rash) RF: 0 ibuprofen 200 mg Tablet 800 mg PO PRN RF: 0 Alive Women's Gummy Vitamin 200 mcg- 37.5 mg Tablet,Chewable 1 tab PO DAILY RF: 0 chlorthalidone 25 mg tablet 25 mg PO DAILY RF: 0 Discharge Orders: Discharge ED (Routine); Ordered 01/04/21 Ordered By: Waldemar Augustine Referrals: Christa Chew APN [Primary Care Provider] - Discharge Diet: Clear Liquid Discharge Activity: Increase activity as tolerated Patient Instructions: Opioid Safety Coding Level of Care Code ED Bindery Machine Setter for Chg Fwd Exam Detailed
--- NOTE | 2021-01-04 09:03 | PC.NURSE ---
notified provider of pt's continued vomiting
[2021-01-04] MEDS: promethazine 25 mg/mL SDV 1 mL IM (09:10)
--- NOTE | 2021-01-04 15:05 | DCPLANNER ---
software test manager had message to schedule a followup appointment for patient with general surgery for EGD and colonoscopy. software test manager emailed patients information to both Abby and Katerin at [facility] General Surgery. Patients information will be printed and reviewed. Clinic will call patient with appointment information.
--- NOTE | 2021-01-13 12:07 | DCPLANNER ---
Patient has follow up appointment scheduled for Monday, January 25, 2021 at 1:[address] Pineda. Clinic will call patient with appointment information.
--- NOTE | 2021-01-27 07:54 | DCPLANNER ---
Patient had a follow up appointment scheduled for 01.25.21 at General Surgery, this appointment has been rescheduled for Friday, February 19, 2021 at 10:[address] Pineda.
--- NOTE | 2021-03-03 14:42 | DCPLANNER ---
Patient had a follow up appointment scheduled with general surgery - patient did attend appointment.
== END 2021-01-04 10:10 | disposition home or self-care (01) ==
PROVIDERS: Emergency Medicine; Emergency Provider Family Medicine; PCP Nurse Practitioner Family
DX: K92.0 Hematemesis (principal); R04.0 Epistaxis; Z79.01 Long term (current) use of anticoagulants; Z79.84 Long term (current) use of oral hypoglycemic drugs; J44.9 Chronic obstructive pulmonary disease, unspecified; I10 Essential (primary) hypertension; Z86.711 Personal history of pulmonary embolism; Z86.73 Personal history of transient ischemic attack (TIA), and cerebral infarction without residual deficits; Z87.891 Personal history of nicotine dependence
CPT/HCPCS: 74176; 74177; 80053; 81001; 83690; 84703; 85025; 85610; 85730; 86140; 86850; 86900; 96361; 96372; 96374; 96375; 99284; C9113; J2405; J2550; J7030; Q9967

== ENCOUNTER 2021-06-15 20:11 | Emergency (ER) | payer MEDICARE, MEDICAID, SELFPAY ==
[2021-06-15 20:16] VITALS: BP 161/62; PULSE 110; RESP 18; TEMP 36.4; O2SAT 96; BMI 54.6
--- NOTE | 2021-06-15 20:34 | ED_ITS ---
HPI - Abdominal Pain General: Chief Complaint: Abdominal Pain Stated Complaint: ABD PAIN/N/V Time Seen by Provider: 06/15/21 20:19 History of Present Illness: HPI narrative: Patient is a 46-year-old female comes to the ED via EMS with abdominal pain, nausea and vomiting. Symptoms started approximately 2 and half hours before arrival. Patient was given IV fentanyl and Zofran while in route. Abdominal pain is constant and she rates the pain currently a 7 out of 10. Pain worsens with any movement of torso. Its located in the periumbilical region and radiates to her back. She has never had this pain before. Denies fevers, constipation or diarrhea. Associated Symptoms: Reports nausea and vomiting; Denies chills, constipation, diarrhea, dysuria, fever(s), hematochezia and hematuria Related Data: Date of Last Menstrual Period: 12/28/20 Review of Systems Const: Denies: fever(s), chills or fatigue Eyes: Denies: change in vision or eye discomfort ENMT: Denies: throat pain, odynophagia, nasal discharge or nasal congestion Card: Denies: chest pain, palpitations, edema, swelling of feet/ankles, dyspnea on exertion or orthopnea Resp: Denies: dyspnea, productive cough or non-productive cough GI: Reports: abdominal pain, nausea and vomiting; Denies: diarrhea, constipation or hematochezia : Denies: flank pain, dysuria or hematuria Musc: Denies: neck pain, back pain or extremity swelling Skin/Breast: Denies: rash or new lesions Neuro: Denies: headache(s), numbness in extremities or weakness in extremities PFS ED PFSH: Medical History Chronic constipation Controlled with medications followed by her primary care provider COPD (chronic obstructive pulmonary disease) Diagnosed in 2013 and is controlled with medication Depression Diagnosed at the age of 23 and has been on medication since then. She follows up with Dr. Benitez a psychiatrist and as well as therapy in [place]. She currently denies suicidal/homicidal ideation. Essential (primary) hypertension Diagnosed in 2019 and she follows up with Dr. Anderson and cardiology. Gastro-esophageal reflux disease without esophagitis Controlled with medication. H/O deep venous thrombosis Reports having a DVT in 2019 and states her warfarin dose was increased after this. She follows up with Dr. Crespo -had second DVT in 11/2019 and was taken off warfarin and is now on eliquis Obstructive sleep apnea Personal history of pulmonary embolism (~2012) States that she had a PE in 2012 and has been on warfarin since then. TIA (transient ischemic attack) Reports having had a TIA in 2019. Denies any neurological deficits. Followed by her primary care provider. Surgical History Status post conization of cervix Office LEEP procedure performed by Dr. Zelaya in 2005 for MARY-2 on Pap smear. 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 Status post knee surgery 2018-open knee surgery for torn ACL Status post left breast lumpectomy Patient reports having had 3 lumpectomies of her left breast in 1999, 2007 and 2009 for benign lesions. Family History Mother Hypertension Heart disease Grandmother Hypertension maternal and paternal Breast cancer maternal, diagnosed at age 43 Colon cancer maternal, diagnosed at age 63 Father Hypertension Grandfather Hypertension maternal and paternal Heart disease maternal Denies family history of Ovarian cancer Diabetes Uterine cancer Thyroid condition Stroke Social History Smoking and tobacco status: never smoked Second hand smoke exposure: Yes Alcohol intake: current Other details last substance use: last used 2013 per patient Lives independently: Yes Housing: House Marital status: Single Number of children: 0 service: No History of recent travel: No Female Reproductive History: Date of last menstrual period: 12/28/20 Physical Exam Const: COMMON NORMALS: patient oriented x3 and alert GENERAL APPEARANCE: cooperative and ill appearing (actively vomiting during exam) NUTRITIONAL APPEARANCE: obese morbidly obese HENMT: COMMON NORMALS: normocephalic HEAD & SCALP: normocephalic MOUTH: Normal oral and palatal mucosa present THROAT: posterior oropharynx normal and uvula midline Eye: COMMON NORMALS: Equal, round and reactive pupils present PUPIL: Yes Equal, round and reactive pupils present Neck/C-Spine: COMMON NORMALS: supple GENERAL: Yes normal visual inspection Resp: COMMON NORMALS: normal respiratory effort, No retractions, No use of accessory muscles and clear to auscultation bilaterally AUSCULTATION: clear to auscultation bilaterally Cardio: COMMON NORMALS: regular rate, regular rhythm, S1 normal heart sound present, S2 normal heart sound present, No gallops present (Cardio), No clicks present (Cardio), No murmurs present (Cardio) and Peripheral pulses 2+ throughout RATE: regular rate RHYTHM: regular rhythm HEART SOUNDS: S1 normal heart sound present and S2 normal heart sound present PERIPHERAL PULSES: Peripheral pulses 2+ throughout GI: COMMON NORMALS: Normal to inspection, nondistended, normoactive bowel sounds present, Soft to palpation, non-tender and no masses PALPATION: Yes Soft to palpation and Yes Tenderness to palpation present (GI) Details: other (periumbilical and central lower abdomen) : COMMON NORMALS: Yes no CVA tenderness BLADDER/KIDNEY EXAM: Yes no CVA tenderness Back/Pelvis: COMMON NORMALS: no CVA tenderness Extremity: COMMON NORMALS: normal to inspection Neuro: COMMON NORMALS: patient oriented x3 SENSORIUM/ORIENTATION: Yes alert GAIT: Yes Normal gait present Skin: GENERAL SKIN EXAM: dry skin Course Reevaluation(s): Reevaluation #1: After patient received IV fluids, Reglan and morphine her symptoms completely resolved. Patient says she felt a lot better and she was able to take p.o. apple juice and keep it down. She had no other episodes of emesis here in the ED. She says her abdominal pain is completely resolved. Time: 22:53 Vital Signs: Vital signs: Vital Signs Temperature 97.6 F 06/15/21 20:16 Pulse Rate 110 H 06/15/21 20:16 Respiratory Rate 18 06/15/21 20:56 Blood Pressure 161/62 06/15/21 20:16 Pulse Oximetry 96 06/15/21 20:16 MDM - Abdominal Pain MDM Narrative: Medical decision making narrative: Patient is a 46-year-old female comes to the ED with abdominal pain, nausea and vomiting. Symptoms started approximately 2 hours before arrival to the ED. Pain is in the periumbilical region and she says it radiates to her back. Pain worsens with any movement of torso. Vitals are stable. Patient had a couple episodes of emesis while I was in the room performing history and physical exam. Patient had some periumbilical tenderness but the rest of exam was benign. CBC, CMP, lipase and UA were unremarkable. CT of abdomen pelvis showed no acute findings. Patient was given 1 L of IV fluids, Reglan and morphine and her symptoms completely resolved. She was complained of no more abdominal pain or nausea vomiting. She had no episodes of emesis after she was given IV Reglan. She was able to keep p.o. fluids down. Patient was diagnosed with abdominal pain and discharged home with a prescription for Reglan and some hydrocodone for acute pain. She was told to do a clear liquid diet for the next 24 to 48 hours then slowly advance diet as tolerated. Return to ED precautions given. Follow-up with PCP in 3 to 5 days for reevaluation. Patient understood and agreed with plan. Lab Data: Attestation: I reviewed the patient's lab results. Labs: Lab Results 06/15/21 06/15/21 06/15/21 20:30 20:30 20:30 WBC 9.0 10^3/uL 10^3/ uL (4.0-10.0) RBC 5.11 10^6/uL 10^6 /uL (4.1-5.3) Hgb 15.3 g/dL g/dL (11.5-15.3) Hct 45.5 % % (37.0-47.0) MCV 89.0 fl fl (81-99) MCH 29.9 pg pg (28.0-34.0) MCHC 33.6 g/dL g/dL (30.0-36.0) RDW 13.0 % % (12.1-15.1) Plt Count 331 10^3/cmm 10^3 /cmm (130-400) MPV 11.1 fL H fL (7.4-10.4) Neut % (Auto) 62.9 % % Lymph % (Auto) 28.6 % % [place] % (Auto) 8.1 % % Eos % (Auto) 0.0 % % Baso % (Auto) 0.1 % % Neut # (Auto) 5.64 10^3/uL 10^3 /uL (1.8-7.7) Lymph # (Auto) 2.6 10^3/uL 10^3/ uL (0.8-4.8) [place] # (Auto) 0.7 10^3/uL 10^3/ uL (0.2-0.9) Eos # (Auto) 0.0 10^3/uL 10^3/ uL (0.0-0.8) Baso # (Auto) 0.0 10^3/uL 10^3/ uL (0.0-0.1) Nucleated RBC % (a uto) 0 % % Nucleated RBCs # 0.0 /100WBC /100W BC Sodium 135 mmol/L L mmol /L (136-145) Potassium 3.8 mmol/L mmol/L (3.5-5.1) Chloride 94 mmol/L L mmol/ L (98-107) Carbon Dioxide 26 mmol/L mmol/L (22-29) Anion Gap 18.8 (5-19) BUN 13 mg/dL mg/dL (6-20) Creatinine 1.1 mg/dL H mg/dL (0.5-0.9) GFR Calculation 54.0 mL/min L mL/ min (90-130) Glucose 162 mg/dL H mg/dL (65-115) Calculated Osmolal ity 284 mOsm/kg L mOs m/kg (285-295) Calcium 9.3 mg/dL mg/dL (8.5-10.5) Total Bilirubin 0.3 mg/dL mg/dL (0.15-1.2) AST 22 U/L U/L (0-32) ALT 31 U/L U/L (0-33) Alkaline Phosphata se 86 IU/L IU/L (35-105) Total Protein 7.7 g/dL g/dL (6.6-8.7) Albumin 4.2 g/dL g/dL (3.5-5.2) Globulin 3.5 g/dL g/dL (1.3-4.6) Lipase 61 U/L H U/L (13-60) HCG, Qual Ser , Geovanna i-Qnt 0.50 mIU/mL mIU/m L Urine Color Urine Appearance Urine pH Ur Specific Gravit y Urine Protein Urine Glucose (UA) Urine Ketones Urine Blood Urine Nitrate Urine Bilirubin Urine Urobilinogen Ur Leukocyte Ana Paula ase 06/15/21 06/15/21 21:40 Unknown WBC RBC Hgb Hct MCV MCH MCHC RDW Plt Count MPV Neut % (Auto) Lymph % (Auto) [place] % (Auto) Eos % (Auto) Baso % (Auto) Neut # (Auto) Lymph # (Auto) [place] # (Auto) Eos # (Auto) Baso # (Auto) Nucleated RBC % (a uto) Nucleated RBCs # Sodium Potassium Chloride Carbon Dioxide Anion Gap BUN Creatinine GFR Calculation Glucose Calculated Osmolal ity Calcium Total Bilirubin AST ALT Alkaline Phosphata se Total Protein Albumin Globulin Lipase HCG, Qual Cancelled Ser , Geovanna i-Qnt Urine Color Yellow (Yellow) Urine Appearance Clear (CLEAR) Urine pH 7 (5-7) Ur Specific Gravit y 1.010 (1.005-1.030) Urine Protein Neg (Negative) Urine Glucose (UA) Norm (Normal) Urine Ketones Negative (Negative) Urine Blood Neg (Negative) Urine Nitrate Negative (Negative) Urine Bilirubin Neg (Negative) Urine Urobilinogen 1 mg/dL H mg/dL (Negative) Ur Leukocyte Ana Paula ase Negative (Negative) Imaging Data ^: CT Abd/Pel: Attestation: I personally reviewed and interpreted this imaging study as follows: Radiologist's impression: [address] [address] [address] Scan Report Signed Patient: Heladio Branch Unit #: [id number] : 1975 Age/Sex: 46 / F ADM Date: 06/15/21 Loc: ER Room/Bed: Attending Dr: Ordering Provider/Ordering MD: Marco Antonio Kyle Date of Service: 06/15/21 Procedure(s): CT abdomen pelvis w con* [id number] Accession Number(s): [id number] Report Number: [id number] PROCEDURE INFORMATION: Exam: CT Abdomen And Pelvis With Contrast Exam date and time: 06/15/2021 8:39 PM Age: 46 years old Clinical indication: Nausea and vomiting; Abdominal pain; Additional info: N/v with abdominal pain-periumbilical TECHNIQUE: Imaging protocol: Computed tomography of the abdomen and pelvis with contrast. Radiation optimization: All CT scans at this facility use at least one of these dose optimization techniques: automated exposure control; mA and/or kV adjustment per patient size (includes targeted exams where dose is matched to clinical indication); or iterative reconstruction. Contrast material: OMNI 300; Contrast volume: 95 ml; Contrast route: INTRAVENOUS (IV); COMPARISON: No relevant prior studies available. RADIATION DOSE METRICS: Total DLP (mGy-cm): 2033.47 FINDINGS: Liver: Hepatic steatosis. Gallbladder and bile ducts: Normal. No calcified stones. No ductal dilation. Pancreas: Normal. No ductal dilation. Spleen: Normal. No splenomegaly. Adrenal glands: Normal. No mass. Kidneys and ureters: Normal. No hydronephrosis. Stomach and bowel: Diverticulosis without diverticulitis. Appendix: No evidence of appendicitis. Intraperitoneal space: Unremarkable. No free air. No significant fluid collection. Vasculature: Unremarkable. No abdominal aortic aneurysm. Lymph nodes: Unremarkable. No enlarged lymph nodes. Urinary bladder: Unremarkable as visualized. Reproductive: IUD in the uterine cavity. Uterine fundal fibroid measuring 2.8 cm. Bones/joints: Unremarkable. No acute fracture. Soft tissues: Unremarkable. CT/CT abdomen pelvis w con* [id number] IMPRESSION: 1. Negative for acute inflammatory process in the abdomen or pelvis. 2. Hepatic steatosis. 3. Diverticulosis without diverticulitis. 4. IUD in the uterine cavity. 5. Uterine fundal fibroid measuring 2.8 cm. Dictated By: Dg Genao MD Signed By: Dg Genao MD Signed Date/Time: 06/15/212214 DD/ 38 Discharge Plan Discharge Patient Disposition: Home Clinical Impression: Abdominal pain Qualifiers: Abdominal location: periumbilical Qualified Code(s): R10.33 - Periumbilical pain Condition: Stable Prescriptions: New Reglan 10 mg tablet 10 mg PO Q6H PRN (Reason: nausea and vomiting) Qty: 20 RF: 0 No Action albuterol sulfate [Ventolin HFA] 90 mcg/actuation HFA aerosol inhaler 2 puff INHALATION QID PRN (Reason: Shortness Of Breath) RF: 0 ferrous sulfate 325 mg (65 mg iron) tablet 325 mg PO QAM RF: 0 quetiapine 300 mg tablet 300 mg PO BEDTIME RF: 0 metformin 500 mg tablet 1,000 mg PO BID RF: 0 metoprolol tartrate 50 mg tablet 100 mg PO BID RF: 0 Mirena 20 mcg/24 hours (5 yrs) 52 mg intrauterine device 1 device INTRAUTERI .every 5 years Qty: 1 RF: 0 alprazolam [Xanax] 2 mg Tablet 2 mg PO TID PRN (Reason: Anxiety) RF: 0 desvenlafaxine 100 mg Tablet Extended Release 24 Hr 100 mg PO DAILY RF: 0 potassium chloride 20 mEq tablet,ER particles/crystals 20 meq PO DAILY RF: 0 isosorbide dinitrate 20 mg tablet 20 mg PO BID RF: 0 desipramine 100 mg tablet 100 mg PO DAILY RF: 0 promethazine 25 mg tablet 25 mg PO Q6H PRN (Reason: nausea and vomiting) Qty: 20 RF: 0 cholecalciferol (vitamin D3) 1,250 mcg (50,000 unit) capsule 1,250 mcg PO Q7D RF: 0 glipizide 5 mg tablet 5 mg PO BID RF: 0 Eliquis 5 mg tablet 5 mg PO BID RF: 0 aripiprazole 5 mg tablet 5 mg PO BEDTIME RF: 0 omeprazole 40 mg Capsule,Delayed Release(Dr/Ec) 40 mg PO BEDTIME RF: 0 nystatin 100,000 unit/gram cream 1 applic TOPICAL BID PRN (Reason: Rash) RF: 0 ibuprofen 200 mg Tablet 800 mg PO PRN RF: 0 Alive Women's Gummy Vitamin 200 mcg- 37.5 mg Tablet,Chewable 1 tab PO DAILY RF: 0 chlorthalidone 25 mg tablet 25 mg PO DAILY RF: 0 Discharge Orders: Discharge ED (Routine); Ordered 06/15/21 Ordered By: Marco Antonio Kyle Referrals: Christa Chew APN [Primary Care Provider] - Discharge Diet: Advance as tolerated and Clear Liquid Discharge Activity: Increase activity as tolerated Patient Instructions: Abdominal Pain (ED), Opioid Safety Activity Restrictions/Additional Instructions: Follow-up with medical provider as directed in 3 to 5 days reevaluation. Start with a clear liquid diet for the next 24 to 48 hours and then advance diet as tolerated. Take medications as prescribed. Return to the ER or your medical provider if condition worsens. Please read and understand discharge instructions. Thank you for choosing [facility] for your healthcare needs today. Please realize this is an emergency room and that we are providing you with a medical screening exam and this may not be complete and all inclusive of all the testing and or work up that you may need to determine your ailment or severity of your illness. It is very important that you follow up as instructed or that you return to the Emergency Department should you have concerns or if your condition changes or worsens in any way. Coding Level of Care Code ED Infant Room Teacher for Marci Fwmaria ines Exam Comprehensive
--- NOTE | 2021-06-15 20:39 | CTR_ITS ---
PROCEDURE INFORMATION: Exam: CT Abdomen And Pelvis With Contrast Exam date and time: 06/15/2021 8:39 PM Age: 46 years old Clinical indication: Nausea and vomiting; Abdominal pain; Additional info: N/v with abdominal pain-periumbilical TECHNIQUE: Imaging protocol: Computed tomography of the abdomen and pelvis with contrast. Radiation optimization: All CT scans at this facility use at least one of these dose optimization techniques: automated exposure control; mA and/or kV adjustment per patient size (includes targeted exams where dose is matched to clinical indication); or iterative reconstruction. Contrast material: OMNI 300; Contrast volume: 95 ml; Contrast route: INTRAVENOUS (IV); COMPARISON: No relevant prior studies available. RADIATION DOSE METRICS: Total DLP (mGy-cm): 2033.47 FINDINGS: Liver: Hepatic steatosis. Gallbladder and bile ducts: Normal. No calcified stones. No ductal dilation. Pancreas: Normal. No ductal dilation. Spleen: Normal. No splenomegaly. Adrenal glands: Normal. No mass. Kidneys and ureters: Normal. No hydronephrosis. Stomach and bowel: Diverticulosis without diverticulitis. Appendix: No evidence of appendicitis. Intraperitoneal space: Unremarkable. No free air. No significant fluid collection. Vasculature: Unremarkable. No abdominal aortic aneurysm. Lymph nodes: Unremarkable. No enlarged lymph nodes. Urinary bladder: Unremarkable as visualized. Reproductive: IUD in the uterine cavity. Uterine fundal fibroid measuring 2.8 cm. Bones/joints: Unremarkable. No acute fracture. Soft tissues: Unremarkable. CT/CT abdomen pelvis w con* [id number] IMPRESSION: 1. Negative for acute inflammatory process in the abdomen or pelvis. 2. Hepatic steatosis. 3. Diverticulosis without diverticulitis. 4. IUD in the uterine cavity. 5. Uterine fundal fibroid measuring 2.8 cm.
[2021-06-15 20:40] LABS: Basophils % 0.1 %; Hematocrit 45.5 % (37.0-47.0); Hemoglobin 15.3 g/dL (11.5-15.3); Lymphocytes # 2.6 10^3/uL (0.8-4.8); Lymphocytes % 28.6 %; Mean Corpuscular HGB Conc 33.6 g/dL (30.0-36.0); Mean Corpuscular Hemoglobin 29.9 pg (28.0-34.0); Mean Platelet Volume 11.1 fL (7.4-10.4); Monocytes # 0.7 10^3/uL (0.2-0.9); Monocytes % 8.1 %; Neutrophils # 5.64 10^3/uL (1.8-7.7); Neutrophils % 62.9 %; Nucleated Red Blood Cells % 0 %; Platelet Count 331 10^3/cmm (130-400); Red Blood Count 5.11 10^6/uL (4.1-5.3)
[2021-06-15 20:56] VITALS: RESP 18
[2021-06-15] MEDS: morphine 4 mg/mL SDV 1 mL IVP (20:56)
[2021-06-15 20:57] LABS: Alanine Aminotransferase 31 U/L (0-33); Albumin Level 4.2 g/dL (3.5-5.2); Alkaline Phosphatase 86 IU/L (35-105); Anion Gap 18.8 (5-19); Aspartate Amino Transferase 22 U/L (0-32); Blood Urea Nitrogen 13 mg/dL (6-20); Calcium 9.3 mg/dL (8.5-10.5); Carbon Dioxide 26 mmol/L (22-29); Chloride 94 mmol/L (98-107); Globulin 3.5 g/dL (1.3-4.6); Glucose 162 mg/dL (65-115); Lipase 61 U/L (13-60); Osmolality Calculated 284 mOsm/kg (285-295); Potassium 3.8 mmol/L (3.5-5.1); Sodium 135 mmol/L (136-145); Total Bilirubin 0.3 mg/dL (0.15-1.2); Total Protein 7.7 g/dL (6.6-8.7)
[2021-06-15] MEDS: sodium chloride 0.9% 1,000 ML 999 ML IV (20:57)
[2021-06-15] MEDS: metoclopramide 5 mg/mL SDV 2 mL 10 MG IVP (20:57)
[2021-06-15] MEDS: iohexol 300 mg/mL 100 mL Btl IV (21:04)
[2021-06-15 21:50] LABS: Add Urine Microscopic? NO; Charge for UA Resulting for Rev
[2021-06-15 21:53] LABS: Bilirubin Urine Neg (Negative); Blood Urine Neg (Negative); Glucose Urine UA Norm (Normal); Ketones Urine Negative (Negative); Leukocyte Esterase Urine Negative (Negative); Nitrate Urine Negative (Negative); Protein Urine Neg (Negative); Urine Appearance Clear (CLEAR); Urine Color Yellow (Yellow); Urobilinogen Urine 1 mg/dL (Negative); pH Urine 7 (5-7)
[2021-06-15] MEDS: HYDROcodone-acetaminophen 7.5-325 mg Tablet 1 TAB PO (23:21)
== END 2021-06-15 23:35 | disposition home or self-care (01) ==
PROVIDERS: Emergency Provider Physician Assistant; PCP Nurse Practitioner Family
DX: R10.33 Periumbilical pain (principal); Z79.84 Long term (current) use of oral hypoglycemic drugs; Z79.01 Long term (current) use of anticoagulants; J44.9 Chronic obstructive pulmonary disease, unspecified; I10 Essential (primary) hypertension; Z86.73 Personal history of transient ischemic attack (TIA), and cerebral infarction without residual deficits; Z77.22 Contact with and (suspected) exposure to environmental tobacco smoke (acute) (chronic)
CPT/HCPCS: 74177; 80053; 81003; 83690; 84702; 85025; 87040; 87205; 96361; 96374; 96375; 99283; J2270; J2765; J7030; Q9967

== ENCOUNTER 2021-08-03 14:00 | Emergency (ER) | payer MEDICARE, MEDICAID, SELFPAY ==
[2021-08-03] VITALS (9 sets, daily range): BP systolic 118–151; BP diastolic 74–100; PULSE 75–93; RESP 16–24; O2SAT 95–98; BMI 54.2
--- NOTE | 2021-08-03 14:02 | W.ED.CHESTPA ---
HPI - Chest Pain General: Chief Complaint: Chest Pain Stated Complaint: CHEST PAIN Time Seen by Provider: 08/03/21 14:02 History of Present Illness: Ms. Branch is a 46-year-old lady with significant past medical history of pulmonary embolism on anticoagulation, which she is compliant with, who presents emergency department due to 2 concerns. Approximately 3 AM this morning she woke up feeling some pain in her neck chest that felt like a aching charley horse. She took her blood pressure medications as she has had similar associated with headache. She had mild improvement however symptoms again recurred. She describes similar charley horse in her chest with radiation to the neck. No associated cough or shortness of breath. She additionally has headache which is generalized and associated with visual disturbance. She has noticed left arm and left leg tingling. She does have a history of headaches but does not had similar neurologic associated symptoms. Overall the course of symptoms has been worsening. Intensity is moderate. No other specific changes in health, exacerbating, or relieving factors. No changes in medications. Onset (ago): hour(s) Timing of current episode: increasing Pain radiation: neck Quality: other Relieving factors: nothing Exacerbating factors: nothing Review of Systems General: Reports: 10 or more systems reviewed and unremarkable except in HPI and below PFSH ED PFSH: Medical History Chronic constipation Controlled with medications followed by her primary care provider COPD (chronic obstructive pulmonary disease) Diagnosed in 2013 and is controlled with medication Depression Diagnosed at the age of 23 and has been on medication since then. She follows up with Dr. Benitez a psychiatrist and as well as therapy in [place]. She currently denies suicidal/homicidal ideation. Essential (primary) hypertension Diagnosed in 2019 and she follows up with Dr. Anderson and cardiology. Gastro-esophageal reflux disease without esophagitis Controlled with medication. H/O deep venous thrombosis Reports having a DVT in 2019 and states her warfarin dose was increased after this. She follows up with Dr. Crespo -had second DVT in 11/2019 and was taken off warfarin and is now on eliquis Obstructive sleep apnea Personal history of pulmonary embolism (~2012) States that she had a PE in 2012 and has been on warfarin since then. TIA (transient ischemic attack) Reports having had a TIA in 2019. Denies any neurological deficits. Followed by her primary care provider. Surgical History Status post conization of cervix Office LEEP procedure performed by Dr. Zelaya in 2006 for MARY-2 on Pap smear. 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 Status post knee surgery 2018-open knee surgery for torn ACL Status post left breast lumpectomy Patient reports having had 3 lumpectomies of her left breast in 1999, 2007 and 2009 for benign lesions. Family History Mother Hypertension Heart disease Grandmother Hypertension maternal and paternal Breast cancer maternal, diagnosed at age 43 Colon cancer maternal, diagnosed at age 63 Father Hypertension Grandfather Hypertension maternal and paternal Heart disease maternal Denies family history of Ovarian cancer Diabetes Uterine cancer Thyroid condition Stroke Social History Smoking and tobacco status: never smoked Second hand smoke exposure: Yes Alcohol intake: current Other details last substance use: last used 2013 per patient Lives independently: Yes Housing: House Marital status: Single Number of children: 0 service: No History of recent travel: No Female Reproductive History: Date of last menstrual period: 12/28/20 Physical Exam Const: COMMON NORMALS: alert GENERAL APPEARANCE: cooperative and well developed HENMT: COMMON NORMALS: normocephalic and atraumatic HEAD & SCALP: normocephalic and atraumatic THROAT: posterior oropharynx normal Eye: COMMON NORMALS: conjunctivae normal CONJUNCTIVA: Yes conjunctivae normal SCLERA: sclerae normal Neck/C-Spine: COMMON NORMALS: supple GENERAL: Yes trachea midline Resp: COMMON NORMALS: normal respiratory effort EFFORT & INSPECTION: Yes able to speak in complete sentences Cardio: COMMON NORMALS: regular rate and regular rhythm RATE: regular rate RHYTHM: regular rhythm GI: COMMON NORMALS: Soft to palpation PALPATION: Yes Soft to palpation and No Tenderness to palpation present (GI) PERCUSSION: normal to percussion Extremity: GENERAL: Yes normal exam except as noted and No edema Neuro: COMMON NORMALS: CN's II-XII intact bilaterally and moves all extremities SENSORIUM/ORIENTATION: Yes alert and No Orientation impaired OTHER: subjective sensory changes left upper and lower extremities Psych: COMMON NORMALS: mental status grossly normal and Normal thought process present THOUGHT PROCESS: Normal thought process present Course ED course: - Patient was seen and evaluated by me at bedside - Patient placed on cardiac monitors, IV access obtained - Initial evaluation notable for exam as above -Headache treatment ordered - Labs notable for no acute abnormality to explain symptoms - Imaging notable for no mass or hemorrhage on CT head. CTA head and neck without LVO or other significant finding to explain symptoms. - Upon serial reexamination after treatment the patient was similar without improvement in headache - Discussed with neurology on-call, no indication for additional imaging with MRI. Recommended trial of Depakote and/or dihydroergotamine - Attempted both of these medications however the patient did not have relief. - Based on patient history, evaluation, labs, and imaging as interpreted the most likely cause of the patient's condition is headache and chest pain of unclear etiology. - In the absence of meningitic symptoms or fevers and in the context of NoAC I do not feel that LP is required. Given the patient's compliance with Eliquis and the fact the patient is not tachycardic and not hypoxic I do not feel that CTA of the chest is required. Additionally in discussion with neurology MRI is not indicated. - The results of ED evaluation were discussed with the patient and she desires discharge. Patient was given followup plan and return precautions. The patient verbalized understanding and felt safe for discharge. - Patient discharged in satisfactory condition. Note: Click bubbles or prepopulated gomez in note writing are used for assistance with data collection and billing and are inherently more limited than narrative and other text portions of this note. Please use narrative for additional clinical history and defer to narrative/free test for any case of contradictory information. If information appears in only free text or click bubble it should be considered present or absent as reported. Please contact note expert medical writer for clarifications of clinical information or contradictory information. MDM is a brief summary, contradictory or erroneous seeming information should be clarified and full note should be reviewed. Vital Signs: Vital signs: Vital Signs Pulse Rate 83 08/03/21 22:15 Respiratory Rate 19 H 08/03/21 22:15 Blood Pressure 133/92 08/03/21 21:21 Pulse Oximetry 96 08/03/21 22:15 MDM - Chest Pain Medical Decision Making 46-year-old lady with complex past medical history presenting with chest discomfort as well as headache. No acute laboratory abnormalities to explain patient's symptoms. CT and CTA without clear evidence of cause. Unfortunately patient did not have improvement in headache despite treatment. Case was discussed with neurology. Patient desired discharge and was discharged in satisfactory condition. Medical Records I reviewed the patient's medical records. Lab Data I reviewed the patient's lab results. : 08/03/21 14:20 08/03/21 14:20 Radiology Impressions Chest X-Ray 08/03/21 14:32 IMPRESSION: No acute findings. Head CT 08/03/21 14:32 IMPRESSION: 1. No evidence of intracranial hemorrhage or mass effect. 2. Normal sharif-white differentiation. 3. No acute intracranial findings. Head/Neck CTA 08/03/21 14:32 IMPRESSION: 1. No significant ICA stenosis bilaterally. Both ICAs are patent to the skull base. 2. Small but patent vertebral arteries bilaterally which are patent to the basilar junction. LEFT dominant vertebral artery. 3. No flow-limiting intracranial stenosis or aneurysm. 4. No other significant findings. Laboratory Results WBC 7.4 10^3/uL (4.0-10.0) 08/03/21 14:20 RBC 4.74 10^6/uL (4.1-5.3) 08/03/21 14:20 Hgb 14.4 g/dL (11.5-15.3) 08/03/21 14:20 Hct 43.2 % (37.0-47.0) 08/03/21 14:20 MCV 91.1 fl (81-99) 08/03/21 14:20 MCH 30.4 pg (28.0-34.0) 08/03/21 14:20 MCHC 33.3 g/dL (30.0-36.0) 08/03/21 14:20 RDW 13.6 % (12.1-15.1) 08/03/21 14:20 Plt Count 321 10^3/cmm (130-400) 08/03/21 14:20 MPV 11.4 fL (7.4-10.4) H 08/03/21 14:20 Neut % (Auto) 61.3 % 08/03/21 14:20 Lymph % (Auto) 29.1 % 08/03/21 14:20 [place] % (Auto) 8.1 % 08/03/21 14:20 Eos % (Auto) 0.1 % 08/03/21 14:20 Baso % (Auto) 0.3 % 08/03/21 14:20 Neut # (Auto) 4.53 10^3/uL (1.8-7.7) 08/03/21 14:20 Lymph # (Auto) 2.2 10^3/uL (0.8-4.8) 08/03/21 14:20 [place] # (Auto) 0.6 10^3/uL (0.2-0.9) 08/03/21 14:20 Eos # (Auto) 0.0 10^3/uL (0.0-0.8) 08/03/21 14:20 Baso # (Auto) 0.0 10^3/uL (0.0-0.1) 08/03/21 14:20 Nucleated RBC % (auto) 0 % 08/03/21 14:20 Nucleated RBCs # 0.0 /100WBC 08/03/21 14:20 Sodium 135 mmol/L (136-145) L 08/03/21 14:20 Potassium 3.8 mmol/L (3.5-5.1) 08/03/21 14:20 Chloride 96 mmol/L (98-107) L 08/03/21 14:20 Carbon Dioxide 26 mmol/L (22-29) 08/03/21 14:20 Anion Gap 16.8 (5-19) 08/03/21 14:20 BUN 12 mg/dL (6-20) 08/03/21 14:20 Creatinine 0.8 mg/dL (0.5-0.9) 08/03/21 14:20 GFR Calculation 77.9 mL/min (90-130) L 08/03/21 14:20 Glucose 129 mg/dL (65-115) H 08/03/21 14:20 Calculated Osmolality 281 mOsm/kg (285-295) L 08/03/21 14:20 Calcium 10.1 mg/dL (8.5-10.5) 08/03/21 14:20 Total Bilirubin 0.2 mg/dL (0.15-1.2) 08/03/21 14:20 AST 25 U/L (0-32) 08/03/21 14:20 ALT 38 U/L (0-33) H 08/03/21 14:20 Alkaline Phosphatase 85 IU/L (35-105) 08/03/21 14:20 Troponin T Baseline 6 ng/L (0-10) 08/03/21 14:20 Troponin T 120 Minute 6.00 ng/L (0-10) 08/03/21 16:32 Delta Troponin T 0 ABS# (0-10) 08/03/21 16:32 Troponin T Hi Sens 6Hr 6.00 ng/L (0-10) 08/03/21 19:50 Troponin T Hi Sens 6Hr Delta 0 ng/L (0-12) 08/03/21 19:50 NT-Pro-B Natriuret Pep 136 pg/mL (0-125) H 08/03/21 14:20 Total Protein 7.7 g/dL (6.6-8.7) 08/03/21 14:20 Albumin 4.1 g/dL (3.5-5.2) 08/03/21 14:20 Globulin 3.6 g/dL (1.3-4.6) 08/03/21 14:20 TSH 2.93 uIU/mL (0.27-4.20) 08/03/21 14:20 HCG, Qual Negative (Negative) 08/03/21 14:48 Urine Color Yellow (Yellow) 08/03/21 14:48 Urine Appearance Clear (CLEAR) 08/03/21 14:48 Urine pH 6.5 (5-7) 08/03/21 14:48 Ur Specific [place] 1.015 (1.005-1.030) 08/03/21 14:48 Urine Protein Neg (Negative) 08/03/21 14:48 Urine Glucose (UA) Norm (Normal) 08/03/21 14:48 Urine Ketones Negative (Negative) 08/03/21 14:48 Urine Blood Neg (Negative) 08/03/21 14:48 Urine Nitrate Negative (Negative) 08/03/21 14:48 Urine Bilirubin 1+ (Negative) H 08/03/21 14:48 Urine Urobilinogen Norm mg/dL (Negative) 08/03/21 14:48 Ur Leukocyte Esterase Negative (Negative) 08/03/21 14:48 EKG Data EKG 1: I personally reviewed and interpreted this EKG as follows: EKG interpretation date: 08/03/21 EKG interpretation time: 16:45 Interpretation: Twelve-lead EKG shows a regular rhythm at a rate of 78. [place] interval 152, QRS duration 99, QTc 417. Normal axis. Interpretation: Sinus rhythm. Discharge Plan Discharge Patient Disposition: Home Clinical Impression: Headache, Chest pain, Otitis media Condition: Stable Prescriptions: New Augmentin 875-125 mg tablet 1 tab PO BID Qty: 20 0RF No Action albuterol sulfate [Ventolin HFA] 90 mcg/actuation HFA aerosol inhaler 2 puff INHALATION QID PRN (Reason: Shortness Of Breath) 0RF ferrous sulfate 325 mg (65 mg iron) tablet 325 mg PO QAM 0RF quetiapine 300 mg tablet 300 mg PO BEDTIME 0RF metformin 500 mg tablet 1,000 mg PO BID 0RF metoprolol tartrate 50 mg tablet 100 mg PO BID 0RF Mirena 20 mcg/24 hours (5 yrs) 52 mg intrauterine device 1 device INTRAUTERI .every 5 years Qty: 1 0RF alprazolam [Xanax] 2 mg Tablet 2 mg PO TID PRN (Reason: Anxiety) 0RF desvenlafaxine 100 mg Tablet Extended Release 24 Hr 100 mg PO DAILY 0RF potassium chloride 20 mEq tablet,ER particles/crystals 20 meq PO DAILY 0RF isosorbide dinitrate 20 mg tablet 20 mg PO BID 0RF desipramine 100 mg tablet 100 mg PO DAILY 0RF promethazine 25 mg tablet 25 mg PO Q6H PRN (Reason: nausea and vomiting) Qty: 20 0RF Reglan 10 mg tablet 10 mg PO Q6H PRN (Reason: nausea and vomiting) Qty: 20 0RF cholecalciferol (vitamin D3) 1,250 mcg (50,000 unit) capsule 1,250 mcg PO Q7D 0RF Rx Instructions: on glipizide 5 mg tablet 5 mg PO BID 0RF Eliquis 5 mg tablet 5 mg PO BID 0RF aripiprazole 5 mg tablet 5 mg PO BEDTIME 0RF omeprazole 40 mg Capsule,Delayed Release(Dr/Ec) 40 mg PO BEDTIME 0RF nystatin 100,000 unit/gram cream 1 applic TOPICAL BID PRN (Reason: Rash) 0RF ibuprofen 200 mg Tablet 800 mg PO PRN 0RF Alive Women's Gummy Vitamin 200 mcg- 37.5 mg Tablet,Chewable 1 tab PO DAILY 0RF chlorthalidone 25 mg tablet 25 mg PO DAILY 0RF Discharge Orders: Discharge ED (Routine); Ordered 08/03/21 Ordered By: Sherwin Ashby Referrals: Christa Chew APN [Primary Care Provider] - Discharge Diet: Usual diet Discharge Activity: Resume usual activity Patient Instructions: Chest Pain (ED), Acute Headache (DC), Opioid Safety Activity Restrictions/Additional Instructions: Thank you for visiting the emergency department. You were seen and evaluated for headache and chest pain. The exact cause of your symptoms is unclear. Please follow-up with your primary care provider. Please return to the emergency department for worsening symptoms, any focal neurologic deficits, or anything else that you are concerned about a feel needs emergency department evaluation. I will message our geriatric case manager for outpatient follow-up regarding chest pain, based on HEART score you do not require inpatient management at this time. Coding Level of Care Code ED Heart Coordinator for Marci Fwmaria ines Exam Comprehensive
--- NOTE | 2021-08-03 14:32 | CT_ITS ---
WS: [id number] CT HEAD TECHNIQUE: Noncontrast CT of the head obtained from the skullbase to the vertex. CLINICAL INFORMATION: headache, L sided tingling COMPARISON: CT December 02, 2020 DLP: 845.[address] scans at [facility] use at least one of these dose optimization techniques: automated e xposure control; mA and/or kV adjustment per patient size (includes targeted exams where dose is matc hed to clinical indication); or iterative reconstruction. FINDINGS: No evidence of intracranial hemorrhage or mass effect. Ventricular system and basal cisterns are stevenson nt. No extra-axial fluid collections. No evidence of mass or mass effect. Normal sharif-white different iation. Paranasal sinuses and mastoid air cells are well aerated. .Normal visualized soft tissues. CT/CT head wo con* [id number] IMPRESSION: 1. No evidence of intracranial hemorrhage or mass effect. 2. Normal sharif-white differentiation. 3. No acute intracranial findings.
--- NOTE | 2021-08-03 14:32 | CT_ITS ---
WS: [id number] CTA HEAD AND NECK TECHNIQUE: Contrast enhanced CTA of the head and neck with coronal and sagittal reformatted images an d maximum intensity projection (MIP) images. NASCET criteria utilized. CLINICAL INFORMATION: headache, L sided tingling COMPARISON: None. DLP: 2592.[address] scans at [facility] use at least one of these dose optimization techniques: automated e xposure control; mA and/or kV adjustment per patient size (includes targeted exams where dose is matc hed to clinical indication); or iterative reconstruction. FINDINGS: RIGHT: RIGHT common carotid artery is patent. No significant RIGHT ICA stenosis. ICA is patent to the skull base. LEFT: LEFT common carotid artery is patent. No significant LEFT ICA stenosis. LEFT ICA is patent to t he skull base. INTRACRANIAL CTA: Small but patent vertebral arteries bilaterally. LEFT dominant vertebral artery. Basilar artery is pa tent. Patent posterior communicating arteries bilaterally. Normal vascularity to the CONCRETE [place]AYER territory bi laterally. Both ICAs are patent at the skull base. Normal vascularity to the [place] and MCA territories bilaterally . No evidence of flow-limiting stenosis or aneurysm. Lung apices are well aerated. Normal parapharyngeal fat. Normal posterior nasopharynx. Tonsillar calc ifications. CT/CT angio headneck* [id number] IMPRESSION: 1. No significant ICA stenosis bilaterally. Both ICAs are patent to the skull base. 2. Small but patent vertebral arteries bilaterally which are patent to the bas ilar junction. LEFT dominant vertebral artery. 3. No flow-limiting intracranial stenosis or aneurysm. 4. No other significant findings.
--- NOTE | 2021-08-03 14:32 | XRR_ITS ---
PROCEDURE INFORMATION: Exam: XR Chest Exam date and time: 08/03/2021 2:32 PM Age: 46 years old Clinical indication: Pain; Angina pectoris; Additional info: Chest pain TECHNIQUE: Imaging protocol: XR of the chest. Views: 1 view. COMPARISON: CR XR chest 1V portable [id number] 12/02/2020 12:51 PM FINDINGS: Lungs: Unremarkable. No consolidation. Pleural spaces: Unremarkable. No pleural effusion. No pneumothorax. Heart/Mediastinum: Unremarkable. No cardiomegaly. Bones/joints: Unremarkable. XR/XR chest 1V portable [id number] IMPRESSION: No acute findings.
[2021-08-03 14:51] LABS: Basophils % 0.3 %; Eosinophils % 0.1 %; Hematocrit 43.2 % (37.0-47.0); Hemoglobin 14.4 g/dL (11.5-15.3); Lymphocytes # 2.2 10^3/uL (0.8-4.8); Lymphocytes % 29.1 %; Mean Corpuscular HGB Conc 33.3 g/dL (30.0-36.0); Mean Corpuscular Hemoglobin 30.4 pg (28.0-34.0); Mean Corpuscular Volume 91.1 fl (81-99); Mean Platelet Volume 11.4 fL (7.4-10.4); Monocytes # 0.6 10^3/uL (0.2-0.9); Monocytes % 8.1 %; Neutrophils # 4.53 10^3/uL (1.8-7.7); Neutrophils % 61.3 %; Nucleated Red Blood Cells % 0 %; Platelet Count 321 10^3/cmm (130-400); Red Blood Count 4.74 10^6/uL (4.1-5.3); Red Cell Distribution Width 13.6 % (12.1-15.1); White Blood Count 7.4 10^3/uL (4.0-10.0)
[2021-08-03 15:05] LABS: Add Urine Microscopic? NO; Charge for UA Resulting for Rev
[2021-08-03] MEDS: iohexol 350 mg/mL 100 mL Btl IV (15:08)
[2021-08-03 15:13] LABS: Bilirubin Urine 1+ (Negative); Blood Urine Neg (Negative); Glucose Urine UA Norm (Normal); Ketones Urine Negative (Negative); Leukocyte Esterase Urine Negative (Negative); Nitrate Urine Negative (Negative); Protein Urine Neg (Negative); Specific Gravity, Urine 1.015 (1.005-1.030); Urine Appearance Clear (CLEAR); Urine Color Yellow (Yellow); Urobilinogen Urine Norm (Negative); pH Urine 6.5 (5-7)
[2021-08-03 15:28] LABS: Alanine Aminotransferase 38 U/L (0-33); Albumin Level 4.1 g/dL (3.5-5.2); Alkaline Phosphatase 85 IU/L (35-105); Blood Urea Nitrogen 12 mg/dL (6-20); Calcium 10.1 mg/dL (8.5-10.5); Carbon Dioxide 26 mmol/L (22-29); Chloride 96 mmol/L (98-107); Globulin 3.6 g/dL (1.3-4.6); Glomerular Filtration Rate 77.9 mL/min (90-130); Glucose 129 mg/dL (65-115); NT Pro B Type Natriuretic Pept 136 pg/mL (0-125); Osmolality Calculated 281 mOsm/kg (285-295); Sodium 135 mmol/L (136-145); Thyroid Stimulating Hormone 2.93 uIU/mL (0.27-4.20); Total Bilirubin 0.2 mg/dL (0.15-1.2); Total Protein 7.7 g/dL (6.6-8.7)
[2021-08-03 15:29] LABS: Anion Gap 16.8 (5-19); Potassium 3.8 mmol/L (3.5-5.1)
[2021-08-03 15:30] LABS: Aspartate Amino Transferase 25 U/L (0-32); Troponin(5th) Baseline 6 ng/L (0-10)
[2021-08-03] MEDS: diphenhydrAMINE 50 mg/mL SDV 1mL 25 MG IVP (16:16)
[2021-08-03] MEDS: ketorolac 30 mg/mL INJ 15 MG IVP (16:16)
[2021-08-03] MEDS: metoclopramide 5 mg/mL SDV 2 mL 10 MG IVP ×2 (16:16→21:50)
[2021-08-03] MEDS: magnesium sulfate premix 2 GM/50 ML PIGGYBACK IV (16:30)
--- NOTE | 2021-08-03 16:34 | ECG_ITS ---
[facility] Test Date: 2021-08-03 Pat Name: Heladio Branch Department: Room: Gender: Female Grants Specialist: : 1975 Requested By: Sherwin Ashby Order Number: [id number] Adalid MD: Dayanna Suh M.D. Measurements Intervals Webb Rate: 78 P: 34 ME: 152 QRS: 26 QRSD: 99 T: 57 QT: 384 QTc: 439 Interpretive Statements SINUS RHYTHM Compared to ECG 12/02/2020 14:35:20 No significant changes Electronically Signed On 08-04-2021 14:47:19 SAFETY SCIENTIST by Dayanna Suh M.D. [email or web address]
[2021-08-03 17:52] LABS: Troponin 5 2HR Delta 0 ABS# (0-10)
[2021-08-03] MEDS: morphine 4 mg/mL SDV 1 mL IVP (18:54)
[2021-08-03] MEDS: acetaminophen 500 mg Tablet 1000 MG PO (19:34)
[2021-08-03] MEDS: sodium chloride 0.9% 500 ML 999 ML IV (19:35)
[2021-08-03] MEDS: prochlorperazine 10 mg Tablet PO (19:36)
[2021-08-03 20:21] LABS: HCG Qualitative Urine. Negative (Negative)
[2021-08-03 20:36] LABS: Troponin 5 6HR Delta 0 ng/L (0-12)
[2021-08-03] MEDS: valproic acid inj 500 MG in sodium chloride 0.9% 50 ML 999 MG IV (21:02)
[2021-08-03] MEDS: dihydroergotamine 1 mg/mL Inj 0.5 MG IVP (21:49)
== END 2021-08-03 22:36 | disposition home or self-care (01) ==
PROVIDERS: Emergency Provider Emergency Medicine; PCP Nurse Practitioner Family
DX: R07.9 Chest pain, unspecified (principal); R51.9 Headache, unspecified; H66.90 Otitis media, unspecified, unspecified ear; Z79.84 Long term (current) use of oral hypoglycemic drugs; Z79.01 Long term (current) use of anticoagulants; J44.9 Chronic obstructive pulmonary disease, unspecified; I10 Essential (primary) hypertension; Z86.73 Personal history of transient ischemic attack (TIA), and cerebral infarction without residual deficits; Z77.22 Contact with and (suspected) exposure to environmental tobacco smoke (acute) (chronic)
CPT/HCPCS: 70450; 70496; 70498; 71045; 80053; 81003; 81025; 83880; 84443; 84484; 85025; 93005; 96365; 96375; 96376; 99284; J1110; J1200; J1885; J2270; J2765; J3475; J7040; Q0164; Q9967

== ENCOUNTER 2021-08-30 21:45 | Emergency (ER) | payer MEDICARE, MEDICAID, SELFPAY ==
[2021-08-30 22:03] VITALS: BP 125/76; PULSE 104; RESP 18; TEMP 36.8; O2SAT 96; BMI 53.9
--- NOTE | 2021-08-30 22:16 | ED_ITS ---
HPI - Syncope General: Chief Complaint: Syncope Stated Complaint: CP Time Seen by Provider: 08/30/21 22:16 History of Present Illness: Ms. Branch is a 46-year-old lady with complex past medical history including psychiatric disorder, hypertension, history of TIA, history of PE and DVT on anticoagulation who presents to the emergency department due to syncope, headache, chest pain. She was previously seen in the emergency department in July for chest pain and other symptoms. She reports that this is essentially continued to be present since then. Today she was sitting on the couch and got up when she describes seeing stars and subsequently woke up on the ground found by her significant other who was not present when this initial event happened. She endorses frontal headache and visual disturbances with floaters since that time. She also vomited. She endorses upper and lower back pain associated with this. Overall intensity symptoms is moderate to severe. Course has persisted. No other specific changes in health, exacerbating, or relieving factors identified. Onset (ago): hour(s) Prodromal symptoms: other Witnessed: No Review of Systems General: Reports: 10 or more systems reviewed and unremarkable except in HPI and below PFSH ED PFSH: Medical History Chronic constipation Controlled with medications followed by her primary care provider COPD (chronic obstructive pulmonary disease) Diagnosed in 2013 and is controlled with medication Depression Diagnosed at the age of 23 and has been on medication since then. She follows up with Dr. Benitez a psychiatrist and as well as therapy in [place]. She currently denies suicidal/homicidal ideation. Essential (primary) hypertension Diagnosed in 2019 and she follows up with Dr. Anderson and cardiology. Gastro-esophageal reflux disease without esophagitis Controlled with medication. H/O deep venous thrombosis Reports having a DVT in 2019 and states her warfarin dose was increased after this. She follows up with Dr. Crespo -had second DVT in 11/2019 and was taken off warfarin and is now on eliquis Obstructive sleep apnea Personal history of pulmonary embolism (~2012) States that she had a PE in 2012 and has been on warfarin since then. TIA (transient ischemic attack) Reports having had a TIA in 2019. Denies any neurological deficits. Followed by her primary care provider. Surgical History Status post conization of cervix Office LEEP procedure performed by Dr. Zelaya in 2005 for MARY-2 on Pap smear. 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 Status post knee surgery 2018-open knee surgery for torn ACL Status post left breast lumpectomy Patient reports having had 3 lumpectomies of her left breast in 1999, 2007 and 2009 for benign lesions. Family History Mother Hypertension Heart disease Grandmother Hypertension maternal and paternal Breast cancer maternal, diagnosed at age 43 Colon cancer maternal, diagnosed at age 63 Father Hypertension Grandfather Hypertension maternal and paternal Heart disease maternal Denies family history of Ovarian cancer Diabetes Uterine cancer Thyroid condition Stroke Social History Smoking and tobacco status: never smoked Second hand smoke exposure: Yes Alcohol intake: current Other details last substance use: last used 2013 per patient Lives independently: Yes Housing: House Marital status: Single Number of children: 0 service: No History of recent travel: No Female Reproductive History: Date of last menstrual period: 12/28/20 Physical Exam Const: COMMON NORMALS: patient oriented x3 and alert GENERAL APPEARANCE: co operative and well developed HENMT: COMMON NORMALS: normocephalic and atraumatic HEAD & SCALP: normocephalic and atraumatic THROAT: posterior oropharynx normal Eye: COMMON NORMALS: conjunctivae normal CONJUNCTIVA: Yes conjunctivae normal SCLERA: sclerae normal Neck/C-Spine: COMMON NORMALS: supple GENERAL: Yes trachea midline Resp: COMMON NORMALS: normal respiratory effort EFFORT & INSPECTION: Yes able to speak in complete sentences Cardio: COMMON NORMALS: regular rate and regular rhythm RATE: regular rate RHYTHM: regular rhythm GI: COMMON NORMALS: Soft to palpation PALPATION: Yes Soft to palpation and No Tenderness to palpation present (GI) PERCUSSION: normal to percussion Extremity: GENERAL: Yes normal exam except as noted and No edema Neuro: COMMON NORMALS: patient oriented x3, CN's II-XII intact bilaterally, moves all extremities, no focal motor deficits and no sensory deficits noted SENSORIUM/ORIENTATION: Yes alert and No Orientation impaired OTHER: Initially patient without focal neurologic deficits however she subsequently developed a stutter during my exam. Psych: COMMON NORMALS: mental status grossly normal and Normal thought process present THOUGHT PROCESS: Normal thought process present Course ED course: - Patient was seen and evaluated by me at bedside - Patient placed on cardiac monitors, IV access obtained - Initial evaluation notable for exam as above, no focal neurologic deficits, stutter developed. - Fluids and migraine cocktail ordered. - Labs notable for no significant hematologic abnormalities. Metabolic panel largely similar to prior with mild evidence of dehydration. Delta troponin negative. Urinalysis not concerning for urinary tract infection. - Imaging notable for no acute finding identified on CT head. Given patient's reported pain secondary to fall CT imaging of chest abdomen pelvis warranted. No acute traumatic injury identified. - Upon serial reexamination after treatment the patient was improved - Based on patient history, evaluation, labs, and imaging as interpreted the most likely cause of the patient's condition is uncertain cause of chest pain and syncope. I had extensive discussion with the patient. Symptom description is not typical of seizures or other acute central process. Description is more typical orthostasis in patients symptoms improved with treatment. Patient is low risk by heart score. - The results of ED evaluation were discussed with the patient including prescriptions and/or symptomatic cares (if applicable) including appropriate and responsible use, followup plan, and return precautions. The patient verbalized understanding and felt safe for discharge. - Patient discharged in satisfactory condition. Note: Click bubbles or prepopulated gomez in note writing are used for assistance with data collection and billing and are inherently more limited than narrative and other text portions of this note. Please use narrative for additional clinic al history and defer to narrative/free test for any case of contradictory information. If information appears in only free text or click bubble it should be considered present or absent as reported. Please contact note policy writer sales for clarifications of clinical information or contradictory information. MDM is a brief summary, contradictory or erroneous seeming information should be clarified and full note should be reviewed. Vital Signs: Vital signs: Vital Signs Temperature 98.2 F 08/30/21 22:03 Pulse Rate 91 08/31/21 01:08 Respiratory Rate 17 08/31/21 02:22 Blood Pressure 130/88 08/31/21 01:08 Pulse Oximetry 97 08/31/21 01:08 MDM - Syncope Medical Decision Making 46-year-old lady with complex past medical history presenting with syncopal episode and chest pain. ED evaluation negative for acute cause of symptoms with exception of mild dehydration. Patient improved with fluids and migraine cock tail. Low risk by heart score. Satisfactory for outpatient management. Medical Records I reviewed the patient's medical records. Lab Data I reviewed the patient's lab results. : 08/30/21 22:21 08/30/21 22:21 Radiology Impressions Cervical Spine CT 08/30/21 22:36 IMPRESSION: 1. No acute cervical spine findings. 2. Minimal degenerative changes Chest X-Ray 08/30/21 22:36 IMPRESSION: No change, lungs clear Head CT 08/30/21 22:36 IMPRESSION: No change, no significant findings Chest/Abdomen/Pelvis CT 08/30/21 22:47 IMPRESSION: No significant chest findings. IMPRESSION: 1. No acute findings. 2. Mild hepatic steatosis. 3. Dominant left ovarian follicle without inflammatory changes. 4. Small fibroids Laboratory Results WBC 7.8 10^3/uL (4.0-10.0) 08/30/21 22: RBC 4.75 10^6/uL (4.1-5.3) 08/30/21 22:21 Hgb 14.4 g/dL (11.5-15.3) 08/30/21 22: Hct 43.5 % (37.0-47.0) 08/30/21 22:21 MCV 91.6 fl (81-99) 08/30/21 22:21 MCH 30.3 pg (28.0-34.0) 08/30/21 22: MCHC 33.1 g/dL (30.0-36.0) 08/30/21 22: RDW 13.3 % (12.1-15.1) 08/30/21 22: Plt Count 321 10^3/cmm (130-400) 08/30/21 22:21 MPV 11.0 fL (7.4-10.4) H 08/30/21 22: Neut % (Auto) 60.9 % 08/30/21 22:21 Lymph % (Auto) 29.1 % 08/30/21 22:21 [place] % (Auto) 9.5 % 08/30/21 22:21 Eos % (Auto) 0.1 % 08/30/21 22:21 Baso % (Auto) 0.1 % 08/30/21 22:21 Neut # (Auto) 4.73 10^3/uL (1.8-7.7) 08/30/21 22:21 Lymph # (Auto) 2.3 10^3/uL (0.8-4.8) 08/30/21 22:21 [place] # (Auto) 0.7 10^3/uL (0.2-0.9) 08/30/21 22:21 Eos # (Auto) 0.0 10^3/uL (0.0-0.8) 08/30/21 22:21 Baso # (Auto) 0.0 10^3/uL (0.0-0.1) 08/30/21 22:21 Nucleated RBC % (auto) 0 % 08/30/21 22: Nucleated RBCs # 0.0 /100WBC 08/30/21 22:21 Sodium 134 mmol/L (136-145) L 08/30/21 22:21 Potassium 3.6 mmol/L (3.5-5.1) 08/30/21 22:21 Chloride 93 mmol/L (98-107) L 08/30/21 22:21 Carbon Dioxide 27 mmol/L (22-29) 08/30/21 22:21 Anion Gap 17.6 (5-19) 08/30/21 22:21 BUN 8 mg/dL (6-20) 08/30/21 22:21 Creatinine 1.2 mg/dL (0.5-0.9) H 08/30/21 22:21 GFR Calculation 48.8 mL/min (90-130) L 08/30/21 22:21 Glucose 163 mg/dL (65-115) H 08/30/21 22:21 Calculated Osmolality 280 mOsm/kg (285-295) L 08/30/21 22:21 Calcium 9.5 mg/dL (8.5-10.5) 08/30/21 22:21 Total Bilirubin 0.2 mg/dL (0.15-1.2) 08/30/21 22:21 AST 26 U/L (0-32) 08/30/21 22:21 ALT 46 U/L (0-33) H 08/30/21 22:21 Alkaline Phosphatase 90 IU/L (35-105) 08/30/21 22:21 Troponin T Baseline 6 ng/L (0-10) 08/30/21 22: Troponin T 120 Minute 6.00 ng/L (0-10) 08/31/21 01:25 Delta Troponin T 0 ABS# (0-10) 08/31/21 01:25 C-Reactive Protein 21.7 mg/L (0.0-4.9) H 08/30/21 22:21 NT-Pro-B Natriuret Pep 33 pg/mL (0-125) 08/30/21 22: Total Protein 7.1 g/dL (6.6-8.7) 08/30/21 22: Albumin 4.4 g/dL (3.5-5.2) 08/30/21: Globulin 2.7 g/dL (1.3-4.6) 08/30/21 22: Lipase 56 U/L (13-60) 08/30/21 22: Procalcitonin 0.06 ng/mL (0-0.5) 08/30/21: TSH 2.94 uIU/mL (0.27-4.20) 08/30/21 22:21 Urine Color Yellow (Yellow) 08/31/21 00:25 Urine Appearance Hazy (CLEAR) A 08/31/21 00:25 Urine pH 7 (5-7) 08/31/21 00:25 Ur Specific [place] 1.005 (1.005-1.030) 08/31/21 00:25 Urine Protein Neg (Negative) 08/31/21 00:25 Urine Glucose (UA) Norm (Normal) 08/31/21 00:25 Urine Ketones Negative (Negative) 08/31/21 00:25 Urine Blood Neg (Negative) 08/31/21 00:25 Urine Nitrate Negative (Negative) 08/31/21 00:25 Urine Bilirubin 1+ (Negative) H 08/31/21 00:25 Urine Urobilinogen 4 mg/dL (Negative) H 08/31/21 00:25 Ur Leukocyte Esterase Negative (Negative) 08/31/21 00:25 Urine RBC 0-4 /hpf (0-2) H 08/31/21 00:25 Urine WBC 0-4 /hpf (0-5) H 08/31/21 00:25 Ur Squamous Epith Cells 25-40 /hpf (0-5) H 08/31/21 00:25 Amorphous Sediment 1+ /hpf 08/31/21 00:25 Urine Bacteria Trace /hpf (NONE) 08/31/21 00:25 Urine Mucus Trace /hpf 08/31/21 00:25 EKG Data EKG 1: I personally reviewed and interpreted this EKG as follows: EKG interpretation date: 08/30/21 EKG interpretation time: 22:25 Interpretation: Twelve-lead EKG shows a regular rhythm at a rate of 94. VT interval 163, QRS duration 101, QTc 398. Normal axis. Interpretation: Sinus rhythm. EKG 2: I personally reviewed and interpreted this EKG as follows: EKG interpretation date: 08/31/21 EKG interpretation time: 00:35 Interpretation: Twelve-lead EKG shows a regular rhythm at a rate of 78. VT interval 160, QRS duration 101, QTc 399. Normal axis. Interpretation: Sinus rhythm. Discharge Plan Discharge Patient Disposition: Home Clinical Impression: Syncope, Chest pain, Headache, Dehydration Condition: Stable Prescriptions: No Action albuterol sulfate [Ventolin HFA] 90 mcg/actuation HFA aerosol inhaler 2 puff INHALATION QID PRN (Reason: Shortness Of Breath) 0RF ferrous sulfate 325 mg (65 mg iron) tablet 325 mg PO QAM 0RF quetiapine 300 mg tablet 300 mg PO BEDTIME 0RF metformin 500 mg tablet 1,000 mg PO BID 0RF metoprolol tartrate 50 mg tablet 100 mg PO BID 0RF Mirena 20 mcg/24 hours (5 yrs) 52 mg intrauterine device 1 device INTRAUTERI .every 5 years Qty: 1 0RF alprazolam [Xanax] 2 mg Tablet 2 mg PO TID PRN (Reason: Anxiety) 0RF desvenlafaxine 100 mg Tablet Extended Release 24 Hr 100 mg PO DAILY 0RF potassium chloride 20 mEq tablet,ER particles/crystals 20 meq PO DAILY 0RF isosorbide dinitrate 20 mg tablet 20 mg PO BID 0RF desipramine 100 mg tablet 100 mg PO DAILY 0RF promethazine 25 mg tablet 25 mg PO Q6H PRN (Reason: nausea and vomiting) Qty: 20 0RF Reglan 10 mg tablet 10 mg PO Q6H PRN (Reason: nausea and vomiting) Qty: 20 0RF cholecalciferol (vitamin D3) 1,250 mcg (50,000 unit) capsule 1,250 mcg PO Q7D 0RF Rx Instructions: on glipizide 5 mg tablet 5 mg PO BID 0RF Eliquis 5 mg tablet 5 mg PO BID 0RF aripiprazole 5 mg tablet 5 mg PO BEDTIME 0RF omeprazole 40 mg Capsule,Delayed Release(Dr/Ec) 40 mg PO BEDTIME 0RF nystatin 100,000 unit/gram cream 1 applic TOPICAL BID PRN (Reason: Rash) 0RF ibuprofen 200 mg Tablet 800 mg PO PRN 0RF Alive Women's Gummy Vitamin 200 mcg- 37.5 mg Tablet,Chewable 1 tab PO DAILY 0RF chlorthalidone 25 mg tablet 25 mg PO DAILY 0RF Augmentin 875-125 mg tablet 1 tab PO BID Qty: 20 0RF Discharge Orders: Discharge ED (Routine); Ordered 08/31/21 Ordered By: Sherwin Ashby Referrals: Christa Chew APN [Primary Care Provider] - Discharge Diet: Usual diet Discharge Activity: Resume usual activity Patient Instructions: Chest Pain (ED), Dehydration (ED), Syncope (ED), Head Injury (ED), Acute Headache (ED) Activity Restrictions/Additional Instructions: Thank you for visiting the emergency department. You were seen and evaluated for chest pain, headache, syncope and visual disturbance. The exact cause of your symptoms is unclear though you are found to be dehydrated which can cause orthostatic syncope resulting from decreased blood pressure. We are pleased that you are improved with treatment. Please follow-up with your primary care provider and machine dyer. Please return to the emergency department for worsening symptoms, recurrent symptoms, any new neurologic deficits, or anything else that you are concerned about and feel needs emergency department evaluation. Coding Level of Care Code ED Manager Intermediate for Marci Fwd Exam Comprehensive
--- NOTE | 2021-08-30 22:36 | CTR_ITS ---
PROCEDURE INFORMATION: Exam: CT Head Without Contrast Exam date and time: 08/30/2021 10:36 PM Age: 46 years old Clinical indication: Syncope and collapse; Patient HX: Syncope w/ collapse TECHNIQUE: Imaging protocol: Computed tomography of the head without contrast. Radiation optimization: All CT scans at this facility use at least one of these dose optimization techniques: automated exposure control; mA and/or kV adjustment per patient size (includes targeted exams where dose is matched to clinical indication); or iterative reconstruction. COMPARISON: CT head wo con* [id number] 08/03/2021 3:05 PM RADIATION DOSE METRICS: Total DLP (mGy-cm): 866.44 FINDINGS: Brain: No CT evidence for acute ischemia, mass or hemorrhage. Cerebral ventricles: No ventriculomegaly. Paranasal sinuses: There is small mucoid fluid in the sphenoid sinus. Mastoid air cells: Visualized mastoid air cells are well aerated. Bones/joints: Unremarkable. No acute fracture. Soft tissues: Incidental chronic prominent temporalis muscles. CT/CT head wo con* [id number] IMPRESSION: No change, no significant findings
--- NOTE | 2021-08-30 22:36 | XRR_ITS ---
PROCEDURE INFORMATION: Exam: XR Chest Exam date and time: 08/30/2021 10:36 PM Age: 46 years old Clinical indication: Other: Syncope; Additional info: Syncope, chest pain TECHNIQUE: Imaging protocol: XR of the chest. Views: 1 view. COMPARISON: CR XR chest 1V portable [id number] 08/03/2021 2:53 PM FINDINGS: Lungs: Unremarkable. No consolidation. Pleural spaces: Unremarkable. No pleural effusion. No pneumothorax. Heart/Mediastinum: Unremarkable. No cardiomegaly. Bones/joints: Unremarkable. XR/XR chest 1V portable [id number] IMPRESSION: No change, lungs clear
--- NOTE | 2021-08-30 22:36 | CTR_ITS ---
PROCEDURE INFORMATION: Exam: CT Cervical Spine Without Contrast Exam date and time: 08/30/2021 10:36 PM Age: 46 years old Clinical indication: Weakness; Patient HX: Syncope w/ collapse TECHNIQUE: Imaging protocol: Computed tomography images of the cervical spine without contrast. Radiation optimization: All CT scans at this facility use at least one of these dose optimization techniques: automated exposure control; mA and/or kV adjustment per patient size (includes targeted exams where dose is matched to clinical indication); or iterative reconstruction. COMPARISON: CT cervical spin wo con* [id number] 01/15/2020 3:18 PM RADIATION DOSE METRICS: Total DLP (mGy-cm): 878.03 FINDINGS: Bones/joints: No acute fracture. Normal alignment. Discs/Spinal canal/Neural foramina: Minimal disc bulges at C3-C4, C4-C5 and C5-C6. No central stenosis. Prevertebral Space: No fracture or prevertebral swelling. Lungs: The lung apices are clear. Soft tissues: Unremarkable. CT/CT cervical spin wo con* [id number] IMPRESSION: 1. No acute cervical spine findings. 2. Minimal degenerative changes
--- NOTE | 2021-08-30 22:37 | ECG_ITS ---
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 Measurements Intervals [place] Rate: 94 P: 53 [place]: 163 QRS: 52 QRSD: 101 T: 61 QT: 347 QTc: 434 Interpretive Statements SINUS RHYTHM Compared to ECG 08/03/2021 16:37:12 No significant changes Electronically Signed On 09-01-2021 18:50:27 CDT by Prasanth Nunn M.D. [id number]
[2021-08-30 22:44] LABS: Basophils % 0.1 %; Eosinophils % 0.1 %; Hematocrit 43.5 % (37.0-47.0); Hemoglobin 14.4 g/dL (11.5-15.3); Lymphocytes # 2.3 10^3/uL (0.8-4.8); Lymphocytes % 29.1 %; Mean Corpuscular HGB Conc 33.1 g/dL (30.0-36.0); Mean Corpuscular Hemoglobin 30.3 pg (28.0-34.0); Mean Corpuscular Volume 91.6 fl (81-99); Monocytes # 0.7 10^3/uL (0.2-0.9); Monocytes % 9.5 %; Neutrophils # 4.73 10^3/uL (1.8-7.7); Neutrophils % 60.9 %; Nucleated Red Blood Cells % 0 %; Platelet Count 321 10^3/cmm (130-400); Red Blood Count 4.75 10^6/uL (4.1-5.3); Red Cell Distribution Width 13.3 % (12.1-15.1); White Blood Count 7.8 10^3/uL (4.0-10.0)
--- NOTE | 2021-08-30 22:47 | CTR_ITS ---
PROCEDURE INFORMATION: Exam: CT Chest With Contrast; Diagnostic Exam date and time: 08/30/2021 10:47 PM Age: 46 years old Clinical indication: Abdominal pain; Chest wall pain; Patient HX: Syncope with collapse; Additional info: Syncope, upper and lower back pain, on blood thinners TECHNIQUE: Imaging protocol: Diagnostic computed tomography of the chest with contrast. Radiation optimization: All CT scans at this facility use at least one of these dose optimization techniques: automated exposure control; mA and/or kV adjustment per patient size (includes targeted exams where dose is matched to clinical indication); or iterative reconstruction. Contrast material: OMNI 300; Contrast volume: 95 ml; Contrast route: INTRAVENOUS (IV); COMPARISON: CT abdomen pelvis w con* [id number] 06/15/2021 9:03 PM RADIATION DOSE METRICS: Total DLP (mGy-cm): 2578.42 FINDINGS: Lungs: No pneumonia or mass. Pleural spaces: There are a few linear scars in the lung bases and pleural plaques. Heart: No calcified plaque is seen in the coronary arteries. Aorta: Unremarkable. No aortic aneurysm. Lymph nodes: Several incidental calcified left hilar lymph nodes. Bones/joints: Unremarkable. No acute fracture. Soft tissues: Unremarkable. PROCEDURE INFORMATION: Exam: CT Abdomen And Pelvis With Contrast Exam date and time: 08/30/2021 10:47 PM Age: 46 years old Clinical indication: Abdominal pain; Chest wall pain; Patient HX: Syncope with collapse; Additional info: Syncope, upper and lower back pain, on blood thinners TECHNIQUE: Imaging protocol: Computed tomography of the abdomen and pelvis with contrast. Radiation optimization: All CT scans at this facility use at least one of these dose optimization techniques: automated exposure control; mA and/or kV adjustment per patient size (includes targeted exams where dose is matched to clinical indication); or iterative reconstruction. Contrast material: OMNI 300; Contrast volume: 95 ml; Contrast route: INTRAVENOUS (IV); COMPARISON: CT abdomen pelvis w con* [id number] 06/15/2021 9:03 PM RADIATION DOSE METRICS: Total DLP (mGy-cm): 2578.42 FINDINGS: Liver: The liver is slightly fatty but normal in size. Gallbladder and bile ducts: Normal. No calcified stones. No ductal dilation. Pancreas: Normal. No ductal dilation. Spleen: Normal. No splenomegaly. Adrenal glands: Normal. No mass. Kidneys and ureters: Normal. No hydronephrosis. Stomach and bowel: 2 cm noninflamed duodenal diverticulum. Appendix: No evidence of appendicitis. Intraperitoneal space: Unremarkable. No free air. No significant fluid collection. Vasculature: Unremarkable. No abdominal aortic aneurysm. Lymph nodes: Unremarkable. No enlarged lymph nodes. Urinary bladder: Unremarkable as visualized. Reproductive: An IUD is normally positioned in the uterus. There are several uterine fibroids measuring up to 3 cm. Dominant left ovarian follicle measures up to 3.3 cm and is new since last year. Bones/joints: Unremarkable. No acute fracture. Soft tissues: Unremarkable. CT/CT chest abd pel w con* IMPRESSION: No significant chest findings. IMPRESSION: 1. No acute findings. 2. Mild hepatic steatosis. 3. Dominant left ovarian follicle without inflammatory changes. 4. Small fibroids
[2021-08-30] MEDS: iohexol 300 mg/mL 100 mL Btl IV (22:54)
[2021-08-30 23:04] LABS: Troponin(5th) Baseline 6 ng/L (0-10)
[2021-08-30 23:10] LABS: NT Pro B Type Natriuretic Pept 33 pg/mL (0-125); Procalcitonin 0.06 ng/mL (0-0.5); Thyroid Stimulating Hormone 2.94 uIU/mL (0.27-4.20)
[2021-08-30 23:19] VITALS: BP 129/79; BP 139/100; BP 152/125; PULSE 110; PULSE 93; PULSE 99
[2021-08-30 23:21] LABS: Alanine Aminotransferase 46 U/L (0-33); Albumin Level 4.4 g/dL (3.5-5.2); Alkaline Phosphatase 90 IU/L (35-105); Anion Gap 17.6 (5-19); Aspartate Amino Transferase 26 U/L (0-32); Blood Urea Nitrogen 8 mg/dL (6-20); C Reactive Protein 21.7 mg/L (0.0-4.9); Calcium 9.5 mg/dL (8.5-10.5); Carbon Dioxide 27 mmol/L (22-29); Chloride 93 mmol/L (98-107); Globulin 2.7 g/dL (1.3-4.6); Glomerular Filtration Rate 48.8 mL/min (90-130); Glucose 163 mg/dL (65-115); Lipase 56 U/L (13-60); Osmolality Calculated 280 mOsm/kg (285-295); Potassium 3.6 mmol/L (3.5-5.1); Sodium 134 mmol/L (136-145); Total Bilirubin 0.2 mg/dL (0.15-1.2); Total Protein 7.1 g/dL (6.6-8.7)
--- NOTE | 2021-08-31 00:37 | ECG_ITS ---
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 Measurements Intervals [place] Rate: 78 P: 59 [place]: 168 QRS: 61 QRSD: 101 T: 81 QT: 366 QTc: 417 Interpretive Statements SINUS RHYTHM WITH SINUS ARRHYTHMIA Compared to ECG 08/30/2021 22:21:57 No significant changes Electronically Signed On 09-01-2021 20:28:44 CDT by Prasanth Nunn M.D. [id number]
[2021-08-31] MEDS: metoclopramide 5 mg/mL SDV 2 mL 10 MG IVP (01:01)
[2021-08-31] MEDS: acetaminophen 500 mg Tablet 1000 MG PO (01:03)
[2021-08-31] MEDS: diphenhydrAMINE 50 mg/mL SDV 1mL 25 MG IVP (01:06)
[2021-08-31] MEDS: sodium chloride 0.9% 1,000 ML 999 ML IV (01:06)
[2021-08-31 01:08] VITALS: BP 130/88; PULSE 91; O2SAT 97
[2021-08-31 01:29] LABS: Add Urine Culture? No; Add Urine Microscopic? YES; Amorphous Sediment Urine 1+ /hpf; Bacteria Urine TRACE /hpf; Bilirubin Urine 1+ (Negative); Blood Urine Neg (Negative); Glucose Urine UA Norm (Normal); Ketones Urine Negative (Negative); Leukocyte Esterase Urine Negative (Negative); Mucus Urine TRACE /hpf; Nitrate Urine Negative (Negative); Protein Urine Neg (Negative); RBC Urine 0-4 /hpf (0-2); Specific Gravity, Urine 1.005 (1.005-1.030); Squamous Epithelial Cell Urine 25-40 /hpf (0-5); Urine Appearance Hazy (CLEAR); Urine Color Yellow (Yellow); Urobilinogen Urine 4 mg/dL (Negative); WBC Urine 0-4 /hpf (0-5); pH Urine 7 (5-7)
[2021-08-31 02:22] VITALS: RESP 17
[2021-08-31 02:23] LABS: Troponin 5 2HR Delta 0 ABS# (0-10)
== END 2021-08-31 02:23 | disposition home or self-care (01) ==
PROVIDERS: Emergency Provider Emergency Medicine; PCP Nurse Practitioner Family
DX: R55 Syncope and collapse (principal); R07.9 Chest pain, unspecified; R51.9 Headache, unspecified; E86.0 Dehydration; Z79.84 Long term (current) use of oral hypoglycemic drugs; Z79.01 Long term (current) use of anticoagulants; J44.9 Chronic obstructive pulmonary disease, unspecified; I10 Essential (primary) hypertension; Z86.711 Personal history of pulmonary embolism; Z86.73 Personal history of transient ischemic attack (TIA), and cerebral infarction without residual deficits; Z77.22 Contact with and (suspected) exposure to environmental tobacco smoke (acute) (chronic)
CPT/HCPCS: 70450; 71045; 71260; 72125; 74177; 80053; 81001; 83690; 83880; 84145; 84443; 84484; 85025; 86140; 93005; 96361; 96374; 96375; 99284; J1200; J2765; J7030; Q9967

== ENCOUNTER 2021-09-21 16:12 | Inpatient (IN) | payer MEDICARE, MEDICAID, SELFPAY ==
--- NOTE | 2021-09-21 16:19 | W.ED.GENADLT ---
HPI - General Adult General: Chief complaint: Psychiatric Symptoms Stated complaint: SUICIDAL/ANXIETY Time Seen by Provider: 09/21/21 16:14 History of Present Illness: HPI: [46]yo patient w/ hx of depression, DM, HTN, CAD BIBA for suicidal ideation, anxiety and chest pain. Patient tells me that for the last 2 days, she has been increasingly stressed out after her friends has been asking her to give her Xanax to him. Patient tells me that she was feel incredibly stressed and have had chest pain from during time of stress. Earlier today, patient went to see her counselor told her counselor that she was going to cut her hands because she was so stressed out from the request of her friends. Her counselor and psychiatrist at [facility] then called EMS patient was brought to the emergency room. On arrival, the patient is AAOx3 and cooperative with my evaluation. No focal complaints of chest pain, shortness of breath, palpitations, N/V, focal GI/ complaints. Currently denies HI. No complaints of hallucinations. Onset: acutely: chest pain x 3 days, SI x 1 day Duration: ongoing Location: home Severity: severe Associated symptoms: Reports chest pain and palpitations; Deny dyspnea, nausea, rash or vomiting Review of Systems Const: Denies: fever(s) or chills Eyes: Denies: change in vision ENMT: Denies: mouth pain Card: Reports: chest pain and palpitations Resp: Denies: dyspnea or non-productive cough GI: Denies: abdominal pain, nausea, vomiting or diarrhea : Denies: dysuria Musc: Denies: extremity pain Skin/Breast: Denies: rash or new lesions Neuro: Denies: weakness in extremities Psych: Reports: anxiety and depression Ander/Lymph: Denies: easy bruising [facility] ED PFSH: Medical History (Updated 09/22/21 @ 18:00 by Adriana Ventura RN) Chronic constipation Controlled with medications followed by her primary care provider COPD (chronic obstructive pulmonary disease) Diagnosed in 2013 and is controlled with medication Depression Diagnosed at the age of 23 and has been on medication since then. She follows up with Dr. Benitez a psychiatrist and as well as therapy in [place]. She currently denies suicidal/homicidal ideation. Essential (primary) hypertension Diagnosed in 2019 and she follows up with Dr. Anderson and cardiology. Gastro-esophageal reflux disease without esophagitis Controlled with medication. H/O deep venous thrombosis Reports having a DVT in 2019 and states her warfarin dose was increased after this. She follows up with Dr. Crespo -had second DVT in 11/2019 and was taken off warfarin and is now on eliquis Obstructive sleep apnea Personal history of pulmonary embolism (~2012) States that she had a PE in 2012 and has been on warfarin since then. TIA (transient ischemic attack) Reports having had a TIA in 2019. Denies any neurological deficits. Followed by her primary care provider. Surgical History Status post conization of cervix Office LEEP procedure performed by Dr. Zelaya in 2005 for MARY-2 on Pap smear. 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 Status post knee surgery 2018-open knee surgery for torn ACL Status post left breast lumpectomy Patient reports having had 3 lumpectomies of her left breast in 1999, 2007 and 2009 for benign lesions. Family History Mother Hypertension Heart disease Grandmother Hypertension maternal and paternal Breast cancer maternal, diagnosed at age 43 Colon cancer maternal, diagnosed at age 63 Father Hypertension Grandfather Hypertension maternal and paternal Heart disease maternal Denies family history of Ovarian cancer Diabetes Uterine cancer Thyroid condition Stroke Social History Smoking and tobacco status: never smoked Second hand smoke exposure: Yes Alcohol intake: current Other details last substance use: last used 2013 per patient Lives independently: Yes Housing: House Marital status: Single Number of children: 0 service: No History of recent travel: No Physical Exam Const: COMMON NORMALS: alert HENMT: COMMON NORMALS: atraumatic HEAD & SCALP: atraumatic MOUTH: moist mucous membranes not abnormal Eye: COMMON NORMALS: EOMs intact bilaterally and conjunctivae normal CONJUNCTIVA: Yes conjunctivae normal Neck/C-Spine: COMMON NORMALS: full ROM and supple Resp: COMMON NORMALS: normal respiratory effort and clear to auscultation bilaterally AUSCULTATION: clear to auscultation bilaterally Cardio: RATE: tachycardic OTHER: 2+ radial pulses b/l GI: COMMON NORMALS: Soft to palpation and non-tender PALPATION: Yes Soft to palpation Extremity: COMMON NORMALS: full ROM Neuro: SENSORIUM/ORIENTATION: Yes alert MOTOR EXAM: No Abnormal motor strength present and Other motor observations present (no focal motor deficits) Psych: COMMON NORMALS: speech normal SPEECH: Yes normal speech MOOD & AFFECT: Yes depressed mood Course Vital Signs: Vital signs: Vital Signs Temperature 98.4 F 09/23/21 14:32 Pulse Rate 95 09/23/21 14:32 Respiratory Rate 17 09/23/21 14:32 Blood Pressure 136/81 09/23/21 14:00 Pulse Oximetry 96 09/23/21 14:32 MDM - General Adult Medical Decision Making [46]yo patient w/ hx of DM, CAD, TIA, depression presenting for chest pain, anxiety, and suicidal ideation. HDS, exam within normal limit Thoughts are linear and organized, and the patient has no AH/VH, or HI. Clinically the patient displays no overt toxidrome; they are well appearing, with low suspicion for toxic ingestion given history and exam. Symptoms unlikely 2/2 anemia, hypothyroidism, infection, or ICH. Workup: CBC, CMP, Lipase, salicylate/tylenol, UDS, troponin x 2, EKG x 2 Lab findings: wnl. EKG is nonischemic x2, chest x-ray is negative for any focal finding. Troponin x2 similar with delta less than 5. Doubt ACS/PE or other emergent causes of chest pain. No suspicion for aortic dissection given no widened mediastinum, 2+ upper extremity pulses, or tearing pain. No suspicion for PE given no pleuritic chest pain, recent immobilization or surgery hemoptysis, or other VTE risk factors. EKG is non-ischemic. XR normal. [6:00pm] On reassessment, labs and workup wnl. Patient is hemodynamically stable with no acute medical complaints. Case discussed with psychiatric provider Dr. Wilson at [facility] psych inpatient with recommendation for admission Disposition: Psych Lab Data : 09/21/21 16:26 09/21/21 16:26 Radiology Impressions Chest X-Ray 09/21/21 16:20 IMPRESSION: No acute findings. Laboratory Results WBC 8.1 10^3/uL (4.0-10.0) 09/21/21 16:26 RBC 4.95 10^6/uL (4.1-5.3) 09/21/21 16:26 Hgb 15.0 g/dL (11.5-15.3) 09/21/21 16: Hct 45.0 % (37.0-47.0) 09/21/21 16: MCV 90.9 fl (81-99) 09/21/21 16: MCH 30.3 pg (28.0-34.0) 09/21/21: MCHC 33.3 g/dL (30.0-36.0) 09/21/21: RDW 13.5 % (12.1-15.1) 09/21/21 16: Plt Count 310 10^3/cmm (130-400) 09/21/21: MPV 10.9 fL (7.4-10.4) H 09/21/21: Neut % (Auto) 65.8 % 09/21/21: Lymph % (Auto) 26.4 % 09/21/21: Cocke % (Auto) 7.2 % 09/21/21: Eos % (Auto) 0.0 % 09/21/21 16: Baso % (Auto) 0.2 % 09/21/21: Neut # (Auto) 5.32 10^3/uL (1.8-7.7) 09/21/21: Lymph # (Auto) 2.1 10^3/uL (0.8-4.8) 09/21/21: Cocke # (Auto) 0.6 10^3/uL (0.2-0.9) 09/21/21: Eos # (Auto) 0.0 10^3/uL (0.0-0.8) 09/21/21: Baso # (Auto) 0.0 10^3/uL (0.0-0.1) 09/21/21: Nucleated RBC % (auto) 0 % 09/21/21: Nucleated RBCs # 0.0 /100WBC 09/21/21 16: Sodium 137 mmol/L (136-145) 09/21/21: Potassium 3.8 mmol/L (3.5-5.1) 09/21/21: Chloride 95 mmol/L (98-107) L 09/21/21 16:26 Carbon Dioxide 23 mmol/L (22-29) 09/21/21 16:26 Anion Gap 22.8 (5-19) H 09/21/21 16:26 BUN 10 mg/dL (6-20) 09/21/21 16:26 Creatinine 1.1 mg/dL (0.5-0.9) H 09/21/21 16:26 GFR Calculation 54.0 mL/min (90-130) L 09/21/21 16:26 Glucose 179 mg/dL (65-115) H 09/21/21 16:26 Calculated Osmolality 288 mOsm/kg (285-295) 09/21/21 16:26 Calcium 10.7 mg/dL (8.5-10.5) H 09/21/21 16:26 Total Bilirubin 0.2 mg/dL (0.15-1.2) 09/21/21 16:26 AST 28 U/L (0-32) 09/21/21 16:26 ALT 42 U/L (0-33) H 09/21/21 16:26 Alkaline Phosphatase 102 IU/L (35-105) 09/21/21 16:26 Troponin T Baseline 6 ng/L (0-10) 09/21/21 16:26 Total Protein 7.2 g/dL (6.6-8.7) 09/21/21 16:26 Albumin 4.5 g/dL (3.5-5.2) 09/21/21 16:26 Globulin 2.7 g/dL (1.3-4.6) 09/21/21 16:26 Salicylates 0.4 mg/dL (3-10) L 09/21/21 16:26 Urine Opiates Screen Negative ng/mL (Negative) 09/21/21 16:54 Acetaminophen < 5.0 ug/mL (10-30) L 09/21/21 16:26 Ur Barbiturates Screen Negative ng/mL (Negative) 09/21/21 16:54 Ur Phencyclidine Scrn Negative ng/mL (Negative) 09/21/21 16:54 Ur Amphetamines Screen Negative ng/mL (Negative) 09/21/21 16:54 U Benzodiazepines Scrn Positive ng/mL (Negative) H 09/21/21 16:54 Urine Cocaine Screen Negative ng/mL (Negative) 09/21/21 16:54 U Marijuana (THC) Screen Positive ng/mL (Negative) H 09/21/21 16:54 Imaging Data Other Imaging: Radiologist's impression: [id number] [address] XRay Report Signed Patient: Heladio Branch Unit #: [id number] : 1975 Age/Sex: 46 / F ADM Date: 09/21/21 Loc: ER Room/Bed: Attending Dr: Ordering Provider/Ordering MD: Srinath Rutherford MD Date of Service: 09/21/21 Procedure(s): XR chest 1V portable [id number] Accession Number(s): [id number] Report Number: [id number] PROCEDURE INFORMATION: Exam: XR Chest Exam date and time: 09/21/2021 5:11 PM Age: 46 years old Clinical indication: Chest wall pain; Additional info: Chest pain TECHNIQUE: Imaging protocol: XR of the chest. Views: 1 view. COMPARISON: CT chest abd pel w con* 08/30/2021 11:05 PM FINDINGS: Lungs: Unremarkable. No consolidation. Pleural spaces: Unremarkable. No pleural effusion. No pneumothorax. Heart/Mediastinum: Unremarkable. No cardiomegaly. Bones/joints: Unremarkable. XR/XR chest 1V portable [id number] IMPRESSION: No acute findings. ? Dictated By: Dg Genao MD Signed By: Dg Genao MD Signed Date/Time: 09/21/211724 DD/ 171 Discharge Plan Discharge Patient Disposition: Admitted As Inpatient Admit Provider: Bon Wilson Clinical Impression: Depression with suicidal ideation, Anxiety, Palpitation, Chest pain Condition: Stable Discharge Diet: Regular Discharge Activity: Resume usual activity Coding Level of Care Code ED [place] Auditor for Vivekg Fwd Exam Comprehensive
--- NOTE | 2021-09-21 16:20 | ECG_ITS ---
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 Measurements Intervals [place] Rate: 110 P: 42 SD: 160 QRS: 35 QRSD: 94 T: 50 QT: 326 QTc: 442 Interpretive Statements SINUS TACHYCARDIA ABNORMAL RHYTHM ECG Compared to ECG 08/31/2021 00:31:11 Sinus rhythm no longer present Sinus arrhythmia no longer present Electronically Signed On 09-21-2021 22:56:14 CDT by Kathy Anderson M.D. [id number]
[2021-09-21 16:21] VITALS: BP 143/80; PULSE 107; RESP 18; TEMP 36.7; O2SAT 99; BMI 53.8
[2021-09-21 16:30] LABS: Basophils % 0.2 %; Lymphocytes # 2.1 10^3/uL (0.8-4.8); Lymphocytes % 26.4 %; Mean Corpuscular HGB Conc 33.3 g/dL (30.0-36.0); Mean Corpuscular Hemoglobin 30.3 pg (28.0-34.0); Mean Corpuscular Volume 90.9 fl (81-99); Mean Platelet Volume 10.9 fL (7.4-10.4); Monocytes # 0.6 10^3/uL (0.2-0.9); Monocytes % 7.2 %; Neutrophils # 5.32 10^3/uL (1.8-7.7); Neutrophils % 65.8 %; Nucleated Red Blood Cells % 0 %; Platelet Count 310 10^3/cmm (130-400); Red Blood Count 4.95 10^6/uL (4.1-5.3); Red Cell Distribution Width 13.5 % (12.1-15.1); White Blood Count 8.1 10^3/uL (4.0-10.0)
[2021-09-21 17:00] LABS: Alanine Aminotransferase 42 U/L (0-33); Albumin Level 4.5 g/dL (3.5-5.2); Alkaline Phosphatase 102 IU/L (35-105); Aspartate Amino Transferase 28 U/L (0-32); Blood Urea Nitrogen 10 mg/dL (6-20); Calcium 10.7 mg/dL (8.5-10.5); Carbon Dioxide 23 mmol/L (22-29); Chloride 95 mmol/L (98-107); Globulin 2.7 g/dL (1.3-4.6); Glucose 179 mg/dL (65-115); Osmolality Calculated 288 mOsm/kg (285-295); Sodium 137 mmol/L (136-145); Total Bilirubin 0.2 mg/dL (0.15-1.2); Total Protein 7.2 g/dL (6.6-8.7)
[2021-09-21 17:01] LABS: Troponin(5th) Baseline 6 ng/L (0-10)
[2021-09-21 17:19] LABS: Anion Gap 22.8 (5-19); Potassium 3.8 mmol/L (3.5-5.1)
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
[2021-09-21 17:51] LABS: Salicylate 0.4 mg/dL (3-10)
[2021-09-21 17:55] LABS: Acetaminophen < 5.0 ug/mL (10-30)
--- NOTE | 2021-09-21 17:55 | PC.NURSE ---
Patient tearful, patient given ice and food, Dr. Rutherford okay with that. Patient in bed and denies any needs at this time.
[2021-09-21 18:15] LABS: Amphetamines Screen Urine Negative (Negative); Barbiturates Screen Urine Negative (Negative); Benzodiazepines Screen Urine Positive (Negative); Cocaine Screen Urine Negative (Negative); Opiate Screen Urine Negative (Negative); PCP Screen Urine Negative (Negative); THC Screen Urine Positive (Negative)
--- NOTE | 2021-09-21 18:20 | ECG_ITS ---
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 Measurements Intervals [place] Rate: 97 P: 42 SC: 167 QRS: 29 QRSD: 90 T: 58 QT: 338 QTc: 430 Interpretive Statements SINUS RHYTHM Compared to ECG 09/21/2021 17:06:50 Sinus tachycardia no longer present Electronically Signed On 09-21-2021 23:31:26 CDT by Kathy Anderson M.D. [id number]
--- NOTE | 2021-09-21 18:44 | PC.NURSE ---
Report called to unit.
[2021-09-21 19:19] LABS: Troponin 5 2HR Delta 0 ABS# (0-10)
[2021-09-21 20:47] VITALS: BP 132/90; PULSE 100; RESP 18; TEMP 37.1; O2SAT 99
[2021-09-21] MEDS: OLANZapine 5 mg ODT PO (21:40)
--- NOTE | 2021-09-21 22:20 | ECG_ITS ---
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 Measurements Intervals [place] Rate: 80 P: 49 MA: 169 QRS: 34 QRSD: 105 T: 62 QT: 399 QTc: 461 Interpretive Statements SINUS RHYTHM Compared to ECG 09/21/2021 18:49:16 No significant changes Electronically Signed On 09-22-2021 18:30:54 CDT by Dayanna Suh M.D. [id number]
[2021-09-21] MEDS: metoprolol tartrate 50 mg Tablet 100 MG PO (23:10)
[2021-09-21] MEDS: apixaban 5 mg Tablet PO (23:10)
[2021-09-22] MEDS: quetiapine 300 mg Tablet 450 MG PO ×2 (00:21→20:50)
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
[2021-09-22 06:00] VITALS: BP 125/86; PULSE 84; RESP 17; TEMP 36.5; O2SAT 96
[2021-09-22] MEDS: potassium chloride ER 20 mEq Tablet PO (09:05)
[2021-09-22] MEDS: isosorbide dinitrate 20 mg Tablet PO ×2 (09:05→17:34)
[2021-09-22] MEDS: apixaban 5 mg Tablet PO ×2 (09:06→17:34)
[2021-09-22] MEDS: metformin 500 mg Tablet 1000 MG PO ×2 (09:06→17:34)
[2021-09-22] MEDS: metoprolol tartrate 50 mg Tablet 100 MG PO ×2 (09:06→17:34)
[2021-09-22] MEDS: chlorthalidone 25 mg Tablet PO (09:06)
[2021-09-22] MEDS: ferrous sulfate EC 325 mg Tablet PO (09:09)
[2021-09-22 10:20] VITALS: PULSE 116; RESP 18; O2SAT 96
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
--- NOTE | 2021-09-22 13:35 | PC.SOCIAL ---
Patient attended and participated in group.
[2021-09-22 13:56] VITALS: BP 143/88; PULSE 94; RESP 18; TEMP 36.6; O2SAT 97
[2021-09-22 18:01] LABS: Glucose Point of Care 200 mg/dL (70-110)
--- NOTE | 2021-09-22 18:18 | PC.NURSE ---
PT REPORTS BEING DIABETIC TO NURSE. IS TAKING METFORMIN. NEW ORDER PLACED TO CHECK GLUCOSE BID AC.
[2021-09-22] MEDS: pantoprazole DR 40 mg Tablet PO (20:54)
[2021-09-22] MEDS: ARIPiprazole 10 mg Tablet 5 MG PO (20:55)
[2021-09-22 20:56] VITALS: BP 156/99; PULSE 107; RESP 18; TEMP 36.4; O2SAT 98
--- NOTE | 2021-09-22 22:02 | PC.NURSE ---
[id number] request xanax for anxiety
[2021-09-23 06:00] VITALS: BP 127/76; PULSE 86; RESP 18; TEMP 36.7; O2SAT 96
[2021-09-23 06:53] LABS: Glucose Point of Care 180 mg/dL (70-110)
[2021-09-23] MEDS: chlorthalidone 25 mg Tablet PO (08:51)
[2021-09-23] MEDS: apixaban 5 mg Tablet PO (08:51)
[2021-09-23] MEDS: metformin 500 mg Tablet 1000 MG PO (08:51)
[2021-09-23] MEDS: metoprolol tartrate 50 mg Tablet 100 MG PO (08:51)
[2021-09-23] MEDS: isosorbide dinitrate 20 mg Tablet PO (08:51)
[2021-09-23] MEDS: potassium chloride ER 20 mEq Tablet PO (08:52)
[2021-09-23 09:09] VITALS: PULSE 95; RESP 17; O2SAT 96
[2021-09-23] MEDS: acetaminophen 325 mg Tablet 650 MG PO (10:00)
[2021-09-23 14:00] VITALS: BP 136/81
--- NOTE | 2021-09-23 14:23 | W.PM.NPUDCS ---
Diagnoses at Discharge Discharge Diagnosis (1) Depression with suicidal ideation: Status: Acute (2) Anxiety: Status: Acute (3) Palpitation: Status: Acute (4) Chest pain: Status: Acute (5) History of borderline personality disorder: Status: Acute (6) Cannabis use, unspecified, uncomplicated: Status: Acute (7) Depression: Status: Acute Permanent problem details: Diagnosed at the age of 23 and has been on medication since then. She follows up with Dr. Benitez a psychiatrist and as well as therapy in [place]. She currently denies suicidal/homicidal ideation. Reason for Visit Reason for Visit: SUICIDAL/ANXIETY Brief History: History of Present Illness Heladio Branch is a 46 year old female who presented to the emergency department the following report: Chief complaint: Psychiatric Symptoms Stated complaint: SUICIDAL/ANXIETY Time Seen by Provider: 09/21/21 16:14 History of Present Illness:?? HPI: [46]yo patient w/ hx of depression, DM, HTN, CAD BIBA for suicidal ideation, anxiety and chest pain.? Patient tells me that for the last 2 days, she has been increasingly ill patient chest pain after her friends has been asking her to give her Xanax to him.? Patient tells me that she was feel incredibly stressed and have had chest pain from this episode.? Earlier today, patient went to see her counselor told her counselor that she was going to cut her hands because she was so stressed out from the request of her friends. Her counselor and psychiatrist at [place] then called EMS patient was brought to the emergency room.? On arrival, the patient is AAOx3 and cooperative with my evaluation. No focal complaints of chest pain, shortness of breath, palpitations, N/V, focal GI/ complaints. Currently denies HI. No complaints of hallucinations. Onset: acutely: chest pain x 3 days, SI x 1 day Duration: ongoing Location: home Severity: severe Associated symptoms: Reports chest pain and palpitations; Deny dyspnea, nausea, rash or vomiting. He was admitted to the neuropsychiatric unit for definitive treatment of those issues.? She presents today reporting that she has been really stressed out recently.? She reports that she has had some positive changes in her psychosocial circumstances that have actually led to some more challenging situations.? She reports that recently she had a tenant who is running from her break and is still her medications and has not been paying his rent.? She reports has been hospitalized about 3 times the last time was in August of last year.? She denies substantive changes since then except for the fact that she had been living with her grandfather and caring for him.? He which was tough back in April 2021.? 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 He did leave her in inheritance of some sort but allow her to get her own place.? In which she did was brought a duplex and run it out the other side.? This was a great situation in theory however this tenant has become a nightmare of sorts.? She reports that she has involve the police and addiction has been initiated in the proper way but this recent time has been challenging.? She reports that getting to the hospital because she saw a counselor was honest about how she is feeling.? She reports that the thoughts of self-harm/suicidal thoughts were fleeting all day but she did not feel they were entirely when she had the past which demanded hospitalization.? Ultimately her therapist had a well check done which led to the police being involved which led to her being at the hospital.? She continues to report she does not feel that hospitalization is necessary.? We discussed the treatment team getting in contact with her provider to make sure we have a clear understanding what took place.? An excerpt of her last hospitalization is included below given the limited/lack of substantive changes otherwise. Hospital Course Hospital Course She slowly acclimated to the individual, group and milieu therapies provided. He was continued on her outpatient medications unchanged. She tolerated these doses and showed steady improvement during her stay. She was able to contract for safety outside hospital prior to discharge. During the hospitalization, patient had routine laboratory studies which were within normal limits except for few outliers. Additionally there was a general medical evaluation which was also within normal limits and revealed no new acute processes. Discharge Summary: At the time of discharge, lethality was denied and psychosis was resolving. Mood and anxiety were well managed. Patient endorsed a plan to follow-up with the aftercare recommendations of the treatment team. Patient was evaluated and deemed to be absent credible lethality, and had achieved the maximum benefit from an inpatient hospitalization, so was discharged. Involuntary Hold Information 96 Hour Hold: 96 Hour Involuntary Admission: No Mental Status Exam MSE Comments: This is a morbidly obese white female with adequate dress, grooming and eye contact.? No abnormal movements except for psychomotor retardation.? Cooperative with exam in no distress.? Speech was normal rate and volume.? Mood described as anxious, affect congruent.? Thought process organized.? Thought content: Patient denied suicidal or homicidal ideation, there were no delusions reported or noted, she denied any auditory or visual hallucination.? Attention and concentration appeared intact and memory appeared mostly reliable but none were formally tested.? She is alert and oriented x3.? Insight and judgment are limited, impulse control is limited. Cognition: Patient Appearance: Appropriate Level of Consciousness: Awake, Alert, Appropriate and Follows Commands Patient Cognition Impaired: No Ability to Follow Directions: Excellent Patient Orientation (long list): Person, Place, Time, Name, Age, Birthday, Month and Year Comprehension Ability: No Impairment Hallucination Type: None Delusion Description: Not Present Thought Process: Appropriate Affect: Affect Description: Appropriate and Calm Behavior: Patient Behavior: Appropriate and Cooperative Speech Pattern: Appropriate and Clear Discharge Data Studies Completed and Pending: Completed Studies During Hospitalization Category Date Time Status XR chest 1V obdulia ble [id number] Stat Exams 09/21/21 16:20 Completed Radiology Impressions Chest X-Ray 09/21/21 16:20 IMPRESSION: No acute findings. Laboratory Results WBC 8.1 10^3/uL (4.0- 10.0) 09/21/21 16: RBC 4.95 10^6/uL (4.1 -5.3) 09/21/21 16:26 Hgb 15.0 g/dL (11.5-1 5.3) 09/21/21 16:26 Hct 45.0 % (37.0-47.0 ) 09/21/21 16:26 MCV 90.9 fl (81-99) 09/21/21 16:26 MCH 30.3 pg (28.0-34. 0) 09/21/21 16:26 MCHC 33.3 g/dL (30.0-3 6.0) 09/21/21 16:26 RDW 13.5 % (12.1-15.1 ) 09/21/21 16:26 Plt Count 310 10^3/cmm (130 -400) 09/21/21 16:26 MPV 10.9 fL (7.4-10.4 ) H 09/21/21 16:26 Neut % (Auto) 65.8 % 09/21/21 16: Lymph % (Auto) 26.4 % 09/21/21 16: Union % (Auto) 7.2 % 09/21/21 16: Eos % (Auto) 0.0 % 09/21/21 16: Baso % (Auto) 0.2 % 09/21/21 16: Neut # (Auto) 5.32 10^3/uL (1.8 -7.7) 09/21/21 16: Lymph # (Auto) 2.1 10^3/uL (0.8- 4.8) 09/21/21 16: Union # (Auto) 0.6 10^3/uL (0.2- 0.9) 09/21/21 16: Eos # (Auto) 0.0 10^3/uL (0.0- 0.8) 09/21/21 16: Baso # (Auto) 0.0 10^3/uL (0.0- 0.1) 09/21/21 16: Nucleated RBC % (a uto) 0 % 09/21/21 16: Nucleated RBCs # 0.0 /100WBC 09/21/21 16:26 Sodium 137 mmol/L (136-1 45) 09/21/21 16: Potassium 3.8 mmol/L (3.5-5 .1) 09/21/21 16: Chloride 95 mmol/L (98-107 ) L 09/21/21 16: Carbon Dioxide 23 mmol/L (22-29) 09/21/21 16: Anion Gap 22.8 (5-19) H 09/21/21 16:26 BUN 10 mg/dL (6-20) 09/21/21 16:26 Creatinine 1.1 mg/dL (0.5-0. 9) H 09/21/21 16:26 GFR Calculation 54.0 mL/min (90-1 30) L 09/21/21 16:26 Glucose 179 mg/dL (65-115 ) H 09/21/21 16:26 POC Glucose 180 mg/dL (70-110 ) H 09/23/21 06:50 Calculated Osmolal ity 288 mOsm/kg (285- 295) 09/21/21 16:26 Calcium 10.7 mg/dL (8.5-1 0.5) H 09/21/21 16:26 Total Bilirubin 0.2 mg/dL (0.15-1 .2) 09/21/21 16:26 AST 28 U/L (0-32) 09/21/21 16:26 ALT 42 U/L (0-33) H 09/21/21 16:26 Alkaline Phosphata se 102 IU/L (35-105) 09/21/21 16:26 Troponin T Baselin e 6 ng/L (0-10) 09/21/21 16:26 Troponin T 120 Min chrissy 6.00 ng/L (0-10) 09/21/21 18:27 Delta Troponin T 0 ABS# (0-10) 09/21/21 18:27 Total Protein 7.2 g/dL (6.6-8.7 ) 09/21/21 16:26 Albumin 4.5 g/dL (3.5-5.2 ) 09/21/21 16:26 Globulin 2.7 g/dL (1.3-4.6 ) 09/21/21 16:26 Salicylates 0.4 mg/dL (3-10) L 09/21/21 16:26 Urine Opiates Scre en Negative ng/mL (N egative) 09/21/21 16:54 Acetaminophen < 5.0 ug/mL (10-3 0) L 09/21/21 16:26 Ur Barbiturates Sc reen Negative ng/mL (N egative) 09/21/21 16:54 Ur Phencyclidine S crn Negative ng/mL (N egative) 09/21/21 16:54 Ur Amphetamines Sc reen Negative ng/mL (N egative) 09/21/21 16:54 U Benzodiazepines Scrn Positive ng/mL (N egative) H 09/21/21 16:54 Urine Cocaine Scre en Negative ng/mL (N egative) 09/21/21 16:54 U Marijuana (THC) Screen Positive ng/mL (N egative) H 09/21/21 16:54 Vitals: Last Vital Signs Temp 98.0 F 09/23/21 06:00 Pulse 95 09/23/21 09:09 Resp 17 09/23/21 09:09 BP 127/76 09/23/21 06:00 Pulse Ox 96 09/23/21 09:09 Discharge Plan Discharge Patient Disposition: Home Condition: Stable Prescriptions: Continued albuterol sulfate [Ventolin HFA] 90 mcg/actuation HFA aerosol inhaler 2 puff INHALATION QID PRN (Reason: Shortness Of Breath) 0RF ferrous sulfate 325 mg (65 mg iron) tablet 325 mg PO QAM 0RF quetiapine 300 mg tablet 300 mg PO BEDTIME 0RF metformin 500 mg tablet 1,000 mg PO BID 0RF metoprolol tartrate 50 mg tablet 100 mg PO BID 0RF Mirena 20 mcg/24 hours (5 yrs) 52 mg intrauterine device 1 device INTRAUTERI .every 5 years Qty: 1 0RF alprazolam [Xanax] 2 mg Tablet 2 mg PO TID PRN (Reason: Anxiety) 0RF desvenlafaxine 100 mg Tablet Extended Release 24 Hr 100 mg PO DAILY 0RF potassium chloride 20 mEq tablet,ER particles/crystals 20 meq PO DAILY 0RF isosorbide dinitrate 20 mg tablet 20 mg PO BID 0RF desipramine 100 mg tablet 100 mg PO DAILY 0RF promethazine 25 mg tablet 25 mg PO Q6H PRN (Reason: nausea and vomiting) Qty: 20 0RF cholecalciferol (vitamin D3) 1,250 mcg (50,000 unit) capsule 1,250 mcg PO Q7D 0RF Rx Instructions: on glipizide 5 mg tablet 5 mg PO BID 0RF Eliquis 5 mg tablet 5 mg PO BID 0RF aripiprazole 5 mg tablet 5 mg PO BEDTIME 0RF omeprazole 40 mg Capsule,Delayed Release(Dr/Ec) 40 mg PO BEDTIME 0RF nystatin 100,000 unit/gram cream 1 applic TOPICAL BID PRN (Reason: Rash) 0RF Alive Women's Gummy Vitamin 200 mcg- 37.5 mg Tablet,Chewable 1 tab PO DAILY 0RF chlorthalidone 25 mg tablet 25 mg PO DAILY 0RF ergocalciferol (vitamin D2) 1,250 mcg (50,000 unit) capsule 1,250 mcg PO Q7D 0RF Discharge Orders: Discharge Order (Routine); Ordered 09/23/21 Ordered By: Paolo Do Referrals: Dr. Jevon Benitez MD [Other] - 12/01/21 1:30 pm (You are currently on the cancellation list for an earlier appointment. Medication Management) Tamra Nieves-[facility] for therapy [Other] - 09/28/21 1:00 pm (Therapy every Monday 1pm) Christa Chew APN [Primary Care Provider] - Discharge Diet: Regular Discharge Activity: Resume usual activity Patient Instructions: Opioid Safety Discharge Attestations NPU Time Spent in Discharge Care*: greater than 30 min Specific Discharge Activities: Specific discharge activities: educating patient, discussing with pcp/other providers, discussing with case investigator/social workers/dc planners, documenting/other paperwork and evaluating patient/reviewing data Coding Level of Care Code Acute Chg FW DC note Diagnoses Depression with suicidal ideation F32.A; R45.851 Anxiety F41.9 Palpitation R00.2 Chest pain R07.9 History of borderline personality disorder Z86.59 Cannabis use, unspecified, uncomplicated F12.90 Depression F32.9
[2021-09-23 14:32] VITALS: PULSE 95; RESP 17; TEMP 36.9; O2SAT 96
--- NOTE | 2021-09-23 15:23 | PC.NURSE ---
Discharge All discharge teaching completed. No new medications ordered. Verbalized understanding with discharge teaching. Signed property sheet. Signed money slip, shows to be 43.35. All money counted to patient and accepts without issue. All medications given to patient. Xanax 2 mg-38 tabs in bottle, Proair, Ventalin and empty pill bottle. Medication sheet signed and accepts without issue. All questions answered and support voices. Discharged at 1521 with friend and POV.
== END 2021-09-23 15:21 | disposition home or self-care (01) | DRG 881 ==
LOC: ER 17:14 → NP 18:24
PROVIDERS: Admitting Provider Psychiatry & Neurology Psychiatry; Emergency Provider Emergency Medicine; PCP Nurse Practitioner Family; Visit Provider Psychiatry & Neurology Psychiatry
DX: F32.A Depression, unspecified (principal); R45.851 Suicidal ideations; F41.9 Anxiety disorder, unspecified; R07.9 Chest pain, unspecified; F12.90 Cannabis use, unspecified, uncomplicated; Z79.01 Long term (current) use of anticoagulants
CPT/HCPCS: 36416; 71045; 80053; 80306; 80307; 82962; 84484; 85025; 93005; 97150; 97165; 99285

== ENCOUNTER 2021-10-24 17:52 | Emergency (ER) | payer MEDICARE, MEDICAID, SELFPAY ==
[2021-10-24 17:55] VITALS: BP 155/94; PULSE 124; RESP 20; TEMP 37.2; O2SAT 98
--- NOTE | 2021-10-24 18:12 | CTR_ITS ---
PROCEDURE INFORMATION: Exam: CT Head Without Contrast Exam date and time: 10/24/2021 6:25 PM Age: 46 years old Clinical indication: Syncope and collapse; Patient HX: On elequis - syncopal episode - fall from standing; Additional info: Syncope, hit head, anticoagulated TECHNIQUE: Imaging protocol: Computed tomography of the head without contrast. Radiation optimization: All CT scans at this facility use at least one of these dose optimization techniques: automated exposure control; mA and/or kV adjustment per patient size (includes targeted exams where dose is matched to clinical indication); or iterative reconstruction. COMPARISON: CT head wo con* [id number] 08/30/2021 10:55 PM RADIATION DOSE METRICS: Total DLP (mGy-cm): 815.87 FINDINGS: Brain: Mild parenchymal volume loss. No hemorrhage. No significant white matter disease. No edema. Cerebral ventricles: No ventriculomegaly. Paranasal sinuses: Visualized sinuses are unremarkable. No fluid levels. Mastoid air cells: Unremarkable as visualized. No mastoid effusion. Bones/joints: Unremarkable. No acute fracture. Soft tissues: Unremarkable. CT/CT head wo con* [id number] IMPRESSION: 1. No acute intracranial abnormality demonstrated. 2. There is no interval change from the prior examination.
--- NOTE | 2021-10-24 18:12 | XRR_ITS ---
PROCEDURE INFORMATION: Exam: XR Chest Exam date and time: 10/24/2021 6:36 PM Age: 46 years old Clinical indication: Sternal or substernal pain; Patient HX: C/O cp w syncope episode TECHNIQUE: Imaging protocol: XR of the chest. Views: 1 view. COMPARISON: CR (CHEST, ) 09/21/2021 5:11 PM FINDINGS: Lungs: No consolidation. Pleural spaces: No pleural effusion. No pneumothorax. Heart/Mediastinum: No cardiomegaly. Bones/joints: Unremarkable. XR/XR chest 1V portable [id number] IMPRESSION: 1. No acute abnormality demonstrated. 2. There is no interval change from the prior examination.
[2021-10-24 18:14] VITALS: BP 128/87; PULSE 114; RESP 28; O2SAT 97
--- NOTE | 2021-10-24 18:14 | ECG_ITS ---
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 Measurements Intervals [place] Rate: 100 P: 28 [place]: 144 QRS: 15 QRSD: 98 T: 34 QT: 365 QTc: 471 Interpretive Statements SINUS TACHYCARDIA ABNORMAL RHYTHM ECG Compared to ECG 09/22/2021 06:37:01 Sinus rhythm no longer present Electronically Signed On 10-24-2021 22:46:55 CDT by Kathy Anderson M.D. [email or web address]
--- NOTE | 2021-10-24 18:15 | ED_ITS ---
HPI - Syncope General: Chief Complaint: Syncope Stated Complaint: Fell hit head Time Seen by Provider: 10/24/21 18:01 Source: patient History of Present Illness: 46-year-old female with no history of coronary disease. She has a history of hypertension. She had a stress test last year which she said was clear. She presents after a syncopal episode coming out of the bathroom in the lobby of the ER. It was witnessed by ER registration. She is anticoagulated, and evidently hit her head on the floor when she passed out. She remembers taking my bra off in the bathroom because my chest was hurting and I thought it was my bra . She complains now of mild chest discomfort, with some dizziness and nausea MD complaint: loss of consciousness and collapsed Onset (ago): minute(s) -: second(s) Description of event: other Prodromal symptoms: lightheaded and chest pain Witnessed: Yes - by Bystander Context: standing up Injuries sustained associated with event: head Associated symptoms: Reports chest pain, headache(s), lightheadedness and nausea; Deny abdominal pain, fever(s) or short of breath Treatments prior to arrival: none Review of Systems Const: Denies: fever(s) ENMT: Denies: throat pain Card: Reports: chest pain, lightheadedness and syncope; Denies: palpitations Resp: Denies: dyspnea, productive cough or non-productive cough GI: Reports: nausea; Denies: abdominal pain Musc: Denies: neck pain or back pain Neuro: Reports: headache(s) and weakness in extremities (Transient bilateral now gone); Denies: numbness in extremities PFS ED PFSH: Medical History Chronic constipation Controlled with medications followed by her primary care provider COPD (chronic obstructive pulmonary disease) Diagnosed in 2013 and is controlled with medication Depression Diagnosed at the age of 23 and has been on medication since then. She follows up with Dr. Benitez a psychiatrist and as well as therapy in [place]. She currently denies suicidal/homicidal ideation. Essential (primary) hypertension Diagnosed in 2019 and she follows up with Dr. Anderson and cardiology. Gastro-esophageal reflux disease without esophagitis Controlled with medication. H/O deep venous thrombosis Reports having a DVT in 2019 and states her warfarin dose was increased after this. She follows up with Dr. Crespo -had second DVT in 11/2019 and was taken off warfarin and is now on eliquis Obstructive sleep apnea Personal history of pulmonary embolism (~2012) States that she had a PE in 2013 and has been on warfarin since then. TIA (transient ischemic attack) Reports having had a TIA in 2019. Denies any neurological deficits. Followed by her primary care provider. Surgical History Status post conization of cervix Office LEEP procedure performed by Dr. Zelaya in 2005 for MARY-2 on Pap smear. 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 Status post knee surgery 2018-open knee surgery for torn ACL Status post left breast lumpectomy Patient reports having had 3 lumpectomies of her left breast in 1999, 2007 and 2009 for benign lesions. Family History Mother Hypertension Heart disease Grandmother Hypertension maternal and paternal Breast cancer maternal, diagnosed at age 43 Colon cancer maternal, diagnosed at age 63 Father Hypertension Grandfather Hypertension maternal and paternal Heart disease maternal Denies family history of Ovarian cancer Diabetes Uterine cancer Thyroid condition Stroke Social History Smoking and tobacco status: never smoked Second hand smoke exposure: Yes Alcohol intake: current Other details last substance use: last used 2013 per patient Lives independently: Yes Housing: House Marital status: Single Number of children: 0 service: No History of recent travel: No Physical Exam Const: GENERAL APPEARANCE: cooperative and diaphoretic ORIENTATION/CONSCIOUSNESS: Yes awake, Yes oriented to person, Yes oriented to place and Yes oriented to time HENMT: COMMON NORMALS: normocephalic, atraumatic and Normal external nose present HEAD & SCALP: normocephalic and atraumatic FACE & SINUS: Facial tenderness on exam of face and sinuses on the right forehead NOSE: Normal external nose present Eye: COMMON NORMALS: Equal, round and reactive pupils present and EOMs intact bilaterally PUPIL: Yes Equal, round and reactive pupils present Neck/C-Spine: CERVICAL SPINE: No Cervical spine tenderness Chest: CHEST: No tenderness Resp: COMMON NORMALS: normal respiratory effort, No use of accessory muscles and clear to auscultation bilaterally AUSCULTATION: clear to auscultation bilaterally Cardio: COMMON NORMALS: regular rate and regular rhythm RATE: regular rate RHYTHM: regular rhythm GI: COMMON NORMALS: Normal to inspection, nondistended, normoactive bowel sounds present, Soft to palpation and non-tender PALPATION: Yes Soft to palpation Neuro: SENSORIUM/ORIENTATION: Yes oriented to person, Yes oriented to place and Yes oriented to time Course Vital Signs: Vital signs: Vital Signs Temperature 98.6 F 10/24/21 19:00 Pulse Rate 98 10/24/21 21:15 Respiratory Rate 23 H 10/24/21 21:15 Blood Pressure 119/76 10/24/21 21:15 Pulse Oximetry 97 10/24/21 21:15 MDM - Syncope Medical Decision Making 46-year-old female with syncopal episode in the lobby of the ER. She is on Eliquis head CT is negative. Potassium is 3.3 and is repleted. CBC is normal. Chest x-ray shows no acute abnormality. CT of the head is negative. Troponin is 6 and remained so at 2 hours. No arrhythmias on the monitor, although she is mildly tachycardic with a rate of 100. Saturations are 95 to 98% on room air with respirations of 20 Lab Data : 10/24/21 18:10 10/24/21 18:10 Radiology Impressions Chest X-Ray 10/24/21 18:12 IMPRESSION: 1. No acute abnormality demonstrated. 2. There is no interval change from the prior examination. Head CT 10/24/21 18:12 IMPRESSION: 1. No acute intracranial abnormality demonstrated. 2. There is no interval change from the prior examination. Laboratory Results WBC 9.3 10^3/uL (4.0-10.0) 10/24/21 18:10 RBC 5.08 10^6/uL (4.1-5.3) 10/24/21 18:10 Hgb 15.4 g/dL (11.5-15.3) H 10/24/21 18:10 Hct 46.3 % (37.0-47.0) 10/24/21 18:10 MCV 91.1 fl (81-99) 10/24/21 18:10 MCH 30.3 pg (28.0-34.0) 10/24/21 18:10 MCHC 33.3 g/dL (30.0-36.0) 10/24/21 18:10 RDW 13.5 % (12.1-15.1) 10/24/21 18:10 Plt Count 342 10^3/cmm (130-400) 10/24/21 18:10 MPV 11.1 fL (7.4-10.4) H 10/24/21 18:10 Neut % (Auto) 60.8 % 10/24/21 18:10 Lymph % (Auto) 30.5 % 10/24/21 18:10 Bartholomew % (Auto) 7.9 % 10/24/21 18:10 Eos % (Auto) 0.1 % 10/24/21 18:10 Baso % (Auto) 0.2 % 10/24/21 18:10 Neut # (Auto) 5.66 10^3/uL (1.8-7.7) 10/24/21 18:10 Lymph # (Auto) 2.9 10^3/uL (0.8-4.8) 10/24/21 18:10 Bartholomew # (Auto) 0.7 10^3/uL (0.2-0.9) 10/24/21 18:10 Eos # (Auto) 0.0 10^3/uL (0.0-0.8) 10/24/21 18:10 Baso # (Auto) 0.0 10^3/uL (0.0-0.1) 10/24/21 18:10 Nucleated RBC % (auto) 0 % 10/24/21 18:10 Nucleated RBCs # 0.0 /100WBC 10/24/21 18:10 PT 13.50 SECONDS (12.1-14.9) 10/24/21 18:10 INR 1.00 (0.8-1.2) 10/24/21 18:10 APTT 29.3 SECONDS (23.9-36.7) 10/24/21 18:10 Sodium 135 mmol/L (136-145) L 10/24/21 18:10 Potassium 3.3 mmol/L (3.5-5.1) L 10/24/21 18:10 Chloride 92 mmol/L (98-107) L 10/24/21 18:10 Carbon Dioxide 27 mmol/L (22-29) 10/24/21 18:10 Anion Gap 19.3 (5-19) H 10/24/21 18:10 BUN 9 mg/dL (6-20) 10/24/21 18:10 Creatinine 1.0 mg/dL (0.5-0.9) H 10/24/21 18:10 GFR Calculation 60.2 mL/min (90-130) L 10/24/21 18:10 Glucose 209 mg/dL (65-115) H 10/24/21 18:10 Calculated Osmolality 285 mOsm/kg (285-295) 10/24/21 18:10 Calcium 10.6 mg/dL (8.5-10.5) H 10/24/21 18:10 Magnesium 1.7 mg/dL (1.7-2.3) 10/24/21 18:10 Total Bilirubin 0.3 mg/dL (0.15-1.2) 10/24/21 18:10 AST 27 U/L (0-32) 10/24/21 18:10 ALT 47 U/L (0-33) H 10/24/21 18:10 Alkaline Phosphatase 90 IU/L (35-105) 10/24/21 18:10 Troponin T Baseline 6 ng/L (0-10) 10/24/21 18:10 Troponin T 120 Minute 6.35 ng/L (0-10) 10/24/21 20:15 Total Protein 8.0 g/dL (6.6-8.7) 10/24/21 18:10 Albumin 4.7 g/dL (3.5-5.2) 10/24/21 18:10 Globulin 3.3 g/dL (1.3-4.6) 10/24/21 18:10 Discharge Plan Discharge Patient Disposition: Home Clinical Impression: Syncope, Concussion Condition: Stable Prescriptions: No Action albuterol sulfate [Ventolin HFA] 90 mcg/actuation HFA aerosol inhaler 2 puff INHALATION QID PRN (Reason: Shortness Of Breath) 0RF ferrous sulfate 325 mg (65 mg iron) tablet 325 mg PO QAM 0RF quetiapine 300 mg tablet 300 mg PO BEDTIME 0RF metformin 500 mg tablet 1,000 mg PO BID 0RF metoprolol tartrate 50 mg tablet 100 mg PO BID 0RF Mirena 20 mcg/24 hours (5 yrs) 52 mg intrauterine device 1 device INTRAUTERI .every 5 years Qty: 1 0RF alprazolam [Xanax] 2 mg Tablet 2 mg PO TID PRN (Reason: Anxiety) 0RF desvenlafaxine 100 mg Tablet Extended Release 24 Hr 100 mg PO DAILY 0RF potassium chloride 20 mEq tablet,ER particles/crystals 20 meq PO DAILY 0RF isosorbide dinitrate 20 mg tablet 20 mg PO BID 0RF desipramine 100 mg tablet 100 mg PO DAILY 0RF promethazine 25 mg tablet 25 mg PO Q6H PRN (Reason: nausea and vomiting) Qty: 20 0RF cholecalciferol (vitamin D3) 1,250 mcg (50,000 unit) capsule 1,250 mcg PO Q7D 0RF Rx Instructions: on glipizide 5 mg tablet 5 mg PO BID 0RF Eliquis 5 mg tablet 5 mg PO BID 0RF aripiprazole 5 mg tablet 5 mg PO BEDTIME 0RF omeprazole 40 mg Capsule,Delayed Release(Dr/Ec) 40 mg PO BEDTIME 0RF nystatin 100,000 unit/gram cream 1 applic TOPICAL BID PRN (Reason: Rash) 0RF Alive Women's Gummy Vitamin 200 mcg- 37.5 mg Tablet,Chewable 1 tab PO DAILY 0RF chlorthalidone 25 mg tablet 25 mg PO DAILY 0RF ergocalciferol (vitamin D2) 1,250 mcg (50,000 unit) capsule 1,250 mcg PO Q7D 0RF Discharge Orders: Discharge ED (Routine); Ordered 10/24/21 Ordered By: John Yo Referrals: Christa Chew APN [Primary Care Provider] - 1-3 days Patient Instructions: Syncope (ED), Concussion (ED) Activity Restrictions/Additional Instructions: Return for any worsening chest discomfort, headache, mental status changes, shortness of breath, any other concerning symptoms. Return also for worsening dizziness. Take it easy the next 48 hours, no strenuous exercise. Follow-up with your doctor. 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
[2021-10-24 18:22] LABS: Basophils % 0.2 %; Eosinophils % 0.1 %; Hematocrit 46.3 % (37.0-47.0); Hemoglobin 15.4 g/dL (11.5-15.3); Lymphocytes # 2.9 10^3/uL (0.8-4.8); Lymphocytes % 30.5 %; Mean Corpuscular HGB Conc 33.3 g/dL (30.0-36.0); Mean Corpuscular Hemoglobin 30.3 pg (28.0-34.0); Mean Corpuscular Volume 91.1 fl (81-99); Mean Platelet Volume 11.1 fL (7.4-10.4); Monocytes # 0.7 10^3/uL (0.2-0.9); Monocytes % 7.9 %; Neutrophils # 5.66 10^3/uL (1.8-7.7); Neutrophils % 60.8 %; Nucleated Red Blood Cells % 0 %; Platelet Count 342 10^3/cmm (130-400); Red Blood Count 5.08 10^6/uL (4.1-5.3); Red Cell Distribution Width 13.5 % (12.1-15.1); White Blood Count 9.3 10^3/uL (4.0-10.0)
[2021-10-24 18:29] LABS: Partial Thromboplastin Time 29.3 SECONDS (23.9-36.7)
[2021-10-24 18:37] LABS: Alanine Aminotransferase 47 U/L (0-33); Albumin Level 4.7 g/dL (3.5-5.2); Alkaline Phosphatase 90 IU/L (35-105); Anion Gap 19.3 (5-19); Aspartate Amino Transferase 27 U/L (0-32); Blood Urea Nitrogen 9 mg/dL (6-20); Calcium 10.6 mg/dL (8.5-10.5); Carbon Dioxide 27 mmol/L (22-29); Chloride 92 mmol/L (98-107); Globulin 3.3 g/dL (1.3-4.6); Glomerular Filtration Rate 60.2 mL/min (90-130); Glucose 209 mg/dL (65-115); Magnesium 1.7 mg/dL (1.7-2.3); Osmolality Calculated 285 mOsm/kg (285-295); Potassium 3.3 mmol/L (3.5-5.1); Sodium 135 mmol/L (136-145); Total Bilirubin 0.3 mg/dL (0.15-1.2)
[2021-10-24 18:38] LABS: Troponin(5th) Baseline 6 ng/L (0-10)
[2021-10-24] MEDS: sodium chloride 0.9% 1,000 ML 999 ML IV (18:57)
[2021-10-24] MEDS: ondansetron 2 mg/ML SDV 2 mL 4 MG IVP ×2 (18:57→20:26)
[2021-10-24 18:58] VITALS: BP 128/87; PULSE 111; RESP 26; O2SAT 96
[2021-10-24 19:00] VITALS: BP 110/92; PULSE 100; RESP 20; TEMP 37; O2SAT 97
[2021-10-24] MEDS: potassium chloride ER 20 mEq Tablet 40 MEQ PO (19:04)
--- NOTE | 2021-10-24 20:14 | ECG_ITS ---
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 Measurements Intervals Yeso Rate: 107 P: 36 NH: 166 QRS: 15 QRSD: 94 T: 32 QT: 343 QTc: 459 Interpretive Statements SINUS TACHYCARDIA ABNORMAL RHYTHM ECG Compared to ECG 10/24/2021 18:48:30 No significant changes Electronically Signed On 10-24-2021 22:50:50 CDT by Kathy Anderson M.D. [email or web address]
[2021-10-24] MEDS: metoprolol tartrate 1 mg/1 mL SDV 5 mL 2.5 MG IVP (20:34)
[2021-10-24] MEDS: LORazepam 2 mg/mL INJ 1 mL 1 MG IVP (20:34)
[2021-10-24 20:50] LABS: Troponin 5 2HR 6.35 ng/L (0-10)
[2021-10-24 21:15] VITALS: BP 119/76; PULSE 98; RESP 23; O2SAT 97
== END 2021-10-24 21:48 | disposition home or self-care (01) ==
PROVIDERS: Emergency Provider Emergency Medicine; PCP Nurse Practitioner Family
DX: R55 Syncope and collapse (principal); S06.0X9A Concussion with loss of consciousness of unspecified duration, initial encounter; W18.39XA Other fall on same level, initial encounter; I10 Essential (primary) hypertension; R00.0 Tachycardia, unspecified; Z86.718 Personal history of other venous thrombosis and embolism; Z79.01 Long term (current) use of anticoagulants; Z86.73 Personal history of transient ischemic attack (TIA), and cerebral infarction without residual deficits
CPT/HCPCS: 36415; 70450; 71045; 80053; 83735; 84484; 85025; 85610; 85730; 93005; 96361; 96374; 96375; 96376; 99285; J2060; J2405; J3490; J7030

== ENCOUNTER 2021-11-09 06:33 | Emergency (ER) | payer MEDICARE, MEDICAID, SELFPAY ==
[2021-11-09 06:34] VITALS: BMI 54.6
[2021-11-09 06:38] VITALS: BP 136/87; PULSE 97; RESP 17; TEMP 36.1; O2SAT 100
--- NOTE | 2021-11-09 07:06 | XR_ITS ---
WS: [id number] Exam: XR chest 1V portable [id number] Date/Time of Exam: 11/09/2021 7:16 AM Reason For Exam: dyspnea Comparison 10/24/2021. Findings: The lungs are clear and fully expanded. Costophrenic angles are sharp. No infiltrates. Bronchovascula r relief appears normal. Cardiac silhouette is unremarkable. Bony elements are intact. Monitoring franklin ds superimpose the chest. XR/XR chest 1V portable [id number] IMPRESSION: Unremarkable chest radiograph.
--- NOTE | 2021-11-09 07:07 | ED_ITS ---
HPI - SOB/Dyspnea General: Chief Complaint: Shortness of Breath/Dyspnea Stated Complaint: CP/SOB Time Seen by Provider: 11/09/21 06:47 History of Present Illness: HPI Narrative: Mrs. Branch is a 46-year-old female on disability who presents with chief complaint of feeling like there is a belt around her chest underneath her breasts and around squeezing her. Most recent episode was starting at 3:00 this morning. It seems to have gotten better as she is woken up and changed her position. Patient reports this seems to happen mostly at nighttime. She says she feels like the weight of her chest and abdomen squeezes her lungs and makes it hard to breathe. She is diagnosed with sleep apnea and is supposed to be wearing positive pressure ventilation but cannot tolerate it. She does have a BMI of 55. If she sits up and repositions she tends to be more comfortable. She does not have any history of coronary artery disease but has a history of a pulmonary embolism many years ago. She takes Eliquis for this. Associated symptoms: Reports chest pain, lightheadedness (With standing or ambulation) and orthopnea; Deny abdominal pain, extremity pain, fever(s), hemoptysis, nausea, palpitations, syncope or vomiting Review of Systems General: Reports: 10 or more systems reviewed and unremarkable except in HPI and below Const: Denies: fever(s), chills or body aches Eyes: Denies: change in vision Card: Reports: chest pain, lightheadedness (With standing or ambulation), dyspnea on exertion and orthopnea; Denies: palpitations, edema, syncope or leg pain with exertion Resp: Reports: dyspnea and wheezing; Denies: productive cough, pain on inspiration, change in phlegm color or hemoptysis GI: Denies: abdominal pain, nausea, vomiting or diarrhea : Denies: flank pain, dysuria or urinary frequency Musc: Denies: neck pain, back pain, extremity pain or extremity swelling Skin/Breast: Denies: rash or erythema Neuro: Denies: numbness in extremities or weakness in extremities PFS ED PFSH: Medical History Chronic constipation Controlled with medications followed by her primary care provider COPD (chronic obstructive pulmonary disease) Diagnosed in 2013 and is controlled with medication Depression Diagnosed at the age of 23 and has been on medication since then. She follows up with Dr. Benitez a psychiatrist and as well as therapy in [place]. She currently denies suicidal/homicidal ideation. Essential (primary) hypertension Diagnosed in 2019 and she follows up with Dr. Anderson and cardiology. Gastro-esophageal reflux disease without esophagitis Controlled with medication. H/O deep venous thrombosis Reports having a DVT in 2019 and states her warfarin dose was increased after this. She follows up with Dr. Crespo -had second DVT in 11/2019 and was taken off warfarin and is now on eliquis Obstructive sleep apnea Personal history of pulmonary embolism (~2012) States that she had a PE in 2012 and has been on warfarin since then. TIA (transient ischemic attack) Reports having had a TIA in 2019. Denies any neurological deficits. Followed by her primary care provider. Surgical History Status post conization of cervix Office LEEP procedure performed by Dr. Zelaya in 2005 for MARY-2 on Pap smear. 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 Status post knee surgery 2018-open knee surgery for torn ACL Status post left breast lumpectomy Patient reports having had 3 lumpectomies of her left breast in 1999, 2007 and 2009 for benign lesions. Family History Mother Hypertension Heart disease Grandmother Hypertension maternal and paternal Breast cancer maternal, diagnosed at age 43 Colon cancer maternal, diagnosed at age 63 Father Hypertension Grandfather Hypertension maternal and paternal Heart disease maternal Denies family history of Ovarian cancer Diabetes Uterine cancer Thyroid condition Stroke Social History Smoking and tobacco status: never smoked Second hand smoke exposure: Yes Alcohol intake: current Other details last substance use: last used 2013 per patient Lives independently: Yes Housing: House Marital status: Single Number of children: 0 service: No History of recent travel: No Physical Exam Narrative: EXAM NARRATIVE: I have reviewed the triage vital signs. Const: 46-year-old female who appears older than her stated age, morbid obesity. She is not in any distress. Her oxygen saturation is 98% on room air. Eyes: PERRL, no conjunctival injection, and symmetrical lids. ENMT: Atraumatic head and facial exam, external nose and ears normal Neck: Symmetric, trachea midline, no swelling, no JVD CVS: Regular rate, radial pulse 2+ RESP: When the patient is repositioned in bed and sat upright her respiratory effort is normal. When she is laying supine, she does appear to have shallow respirations with increased effort. It appears consistent with obesity hypoventilation syndrome. There is symmetric expansion, Clear to auscultation bilaterally GI: Nontender/Nondistended, soft, no masses. 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 Sensation grossly intact Psych: awake, alert, oriented, appromiate mood and affect Course Vital Signs: Vital signs: Vital Signs Temperature 97.0 F L 11/09/21 06:38 Pulse Rate 97 11/09/21 06:38 Respiratory Rate 17 11/09/21 06:38 Blood Pressure 136/87 11/09/21 06:38 Pulse Oximetry 100 11/09/21 06:38 MDM - SOB/Dyspnea Medical Decision Making I suspect that this patient is suffering from a combination of obesity hypoventilation syndrome with untreated sleep apnea and probably developing some pulmonary hypertension. She is asymptomatic upon sitting up/waking up and repositioning her weight. She does have a history of pulmonary embolism but is on anticoagulation. She feels lightheaded when she stands or walks. She also sometimes gets a tingling sensation that shoots through her spine all the way from her feet when she first begins to walk. She has stable vital signs today. I think that it would be appropriate to rule out any acute coronary syndrome, pulmonary embolism that has broken through Eliquis, congestive heart failure, anemia, pulmonary infiltrates or effusions. However I maintained that the likely diagnosis is obesity hypoventilation syndrome with contributions from untreated sleep apnea and the stress that that puts on the cardiopulmonary system. Chest x-ray was reviewed and was unremarkable. Troponin, BNP unremarkable. Stable chronic kidney disease. Normal hemoglobin. EKG without ischemic changes. Conclusion is same as pretest suspicion. Patient will be referred to primary care physician to talk about options including natural weight loss, supplemented weight loss, surgical options. I have encouraged her to sleep semiupright. She may also need to visit with sleep medicine again to talk about any further options to treat her sleep apnea--positive pressure ventilation would work both for her obesity hypoventilation syndrome and her sleep apnea. Lab Data : 11/09/21 06:43 11/09/21 06:43 Labs/Radiology: Radiology Impressions Chest X-Ray 11/09/21 07:06 IMPRESSION: Unremarkable chest radiograph. Laboratory Results WBC 7.0 10^3/uL (4.0-10.0) 11/09/21 06:43 RBC 4.43 10^6/uL (4.1-5.3) 11/09/21 06:43 Hgb 13.6 g/dL (11.5-15.3) 11/09/21 06:43 Hct 41.3 % (37.0-47.0) 11/09/21 06:43 MCV 93.2 fl (81-99) 11/09/21 06:43 MCH 30.7 pg (28.0-34.0) 11/09/21 06:43 MCHC 32.9 g/dL (30.0-36.0) 11/09/21 06:43 RDW 13.5 % (12.1-15.1) 11/09/21 06:43 Plt Count 280 10^3/cmm (130-400) 11/09/21 06:43 MPV 11.1 fL (7.4-10.4) H 11/09/21 06:43 Neut % (Auto) 58.4 % 11/09/21 06:43 Lymph % (Auto) 32.7 % 11/09/21 06:43 Miner % (Auto) 8.2 % 11/09/21 06:43 Eos % (Auto) 0.1 % 11/09/21 06:43 Baso % (Auto) 0.3 % 11/09/21 06:43 Neut # (Auto) 4.08 10^3/uL (1.8-7.7) 11/09/21 06:43 Lymph # (Auto) 2.3 10^3/uL (0.8-4.8) 11/09/21 06:43 Miner # (Auto) 0.6 10^3/uL (0.2-0.9) 11/09/21 06:43 Eos # (Auto) 0.0 10^3/uL (0.0-0.8) 11/09/21 06:43 Baso # (Auto) 0.0 10^3/uL (0.0-0.1) 11/09/21 06:43 Nucleated RBC % (auto) 0 % 11/09/21 06:43 Nucleated RBCs # 0.0 /100WBC 11/09/21 06:43 D-Dimer 0.29 ug/mIFEU (0-0.59) 11/09/21 07:22 Sodium 134 mmol/L (136-145) L 11/09/21 06:43 Potassium 3.3 mmol/L (3.5-5.1) L 11/09/21 06:43 Chloride 95 mmol/L (98-107) L 11/09/21 06:43 Carbon Dioxide 27 mmol/L (22-29) 11/09/21 06:43 Anion Gap 15.3 (5-19) 11/09/21 06:43 BUN 10 mg/dL (6-20) 11/09/21 06:43 Creatinine 1.1 mg/dL (0.5-0.9) H 11/09/21 06:43 GFR Calculation 54.0 mL/min (90-130) L 11/09/21 06:43 Glucose 197 mg/dL (65-115) H 11/09/21 06:43 Calculated Osmolality 283 mOsm/kg (285-295) L 11/09/21 06:43 Calcium 9.1 mg/dL (8.5-10.5) 11/09/21 06:43 Troponin T Baseline 6 ng/L (0-10) 11/09/21 06:43 NT-Pro-B Natriuret Pep 83 pg/mL (0-125) 11/09/21 06:43 Discharge Plan Discharge Patient Disposition: Home Clinical Impression: Obesity with alveolar hypoventilation, Apnea, sleep Condition: Stable Prescriptions: No Action albuterol sulfate [Ventolin HFA] 90 mcg/actuation HFA aerosol inhaler 2 puff INHALATION QID PRN (Reason: Shortness Of Breath) 0RF ferrous sulfate 325 mg (65 mg iron) tablet 325 mg PO QAM 0RF quetiapine 300 mg tablet 300 mg PO BEDTIME 0RF metformin 500 mg tablet 1,000 mg PO BID 0RF metoprolol tartrate 50 mg tablet 100 mg PO BID 0RF Mirena 20 mcg/24 hours (5 yrs) 52 mg intrauterine device 1 device INTRAUTERI .every 5 years Qty: 1 0RF alprazolam [Xanax] 2 mg Tablet 2 mg PO TID PRN (Reason: Anxiety) 0RF desvenlafaxine 100 mg Tablet Extended Release 24 Hr 100 mg PO DAILY 0RF potassium chloride 20 mEq tablet,ER particles/crystals 20 meq PO DAILY 0RF isosorbide dinitrate 20 mg tablet 20 mg PO BID 0RF desipramine 100 mg tablet 100 mg PO DAILY 0RF promethazine 25 mg tablet 25 mg PO Q6H PRN (Reason: nausea and vomiting) Qty: 20 0RF cholecalciferol (vitamin D3) 1,250 mcg (50,000 unit) capsule 1,250 mcg PO Q7D 0RF Rx Instructions: on glipizide 5 mg tablet 5 mg PO BID 0RF Eliquis 5 mg tablet 5 mg PO BID 0RF aripiprazole 5 mg tablet 5 mg PO BEDTIME 0RF omeprazole 40 mg Capsule,Delayed Release(Dr/Ec) 40 mg PO BEDTIME 0RF nystatin 100,000 unit/gram cream 1 applic TOPICAL BID PRN (Reason: Rash) 0RF Alive Women's Gummy Vitamin 200 mcg- 37.5 mg Tablet,Chewable 1 tab PO DAILY 0RF chlorthalidone 25 mg tablet 25 mg PO DAILY 0RF ergocalciferol (vitamin D2) 1,250 mcg (50,000 unit) capsule 1,250 mcg PO Q7D 0RF Discharge Orders: Discharge ED (Routine); Ordered 11/09/21 Ordered By: Kevin Segal Referrals: Christa Chew APN [Primary Care Provider] - 1 week (Talk about weight loss options, including surgical options if necessary. Patient has obesity hypoventilation syndrome and sleep apnea, both which are untreated at this time (cannot tolerate cpap).) Discharge Diet: Diabetic Discharge Activity: Resume usual activity Patient Instructions: Adjustable Gastric Banding (GEN), Obesity and Weight Control, Opioid Safety Activity Restrictions/Additional Instructions: Sleep semi-upright Coding Level of Care Code ED Magistrate for Marci Helms
[2021-11-09 07:19] LABS: Basophils % 0.3 %; Eosinophils % 0.1 %; Hematocrit 41.3 % (37.0-47.0); Hemoglobin 13.6 g/dL (11.5-15.3); Lymphocytes # 2.3 10^3/uL (0.8-4.8); Lymphocytes % 32.7 %; Mean Corpuscular HGB Conc 32.9 g/dL (30.0-36.0); Mean Corpuscular Hemoglobin 30.7 pg (28.0-34.0); Mean Corpuscular Volume 93.2 fl (81-99); Mean Platelet Volume 11.1 fL (7.4-10.4); Monocytes # 0.6 10^3/uL (0.2-0.9); Monocytes % 8.2 %; Neutrophils # 4.08 10^3/uL (1.8-7.7); Neutrophils % 58.4 %; Nucleated Red Blood Cells % 0 %; Platelet Count 280 10^3/cmm (130-400); Red Blood Count 4.43 10^6/uL (4.1-5.3); Red Cell Distribution Width 13.5 % (12.1-15.1)
[2021-11-09 07:35] LABS: Troponin(5th) Baseline 6 ng/L (0-10)
[2021-11-09 07:43] LABS: Blood Urea Nitrogen 10 mg/dL (6-20); Calcium 9.1 mg/dL (8.5-10.5); Carbon Dioxide 27 mmol/L (22-29); Glucose 197 mg/dL (65-115); NT Pro B Type Natriuretic Pept 83 pg/mL (0-125)
[2021-11-09 07:48] LABS: Anion Gap 15.3 (5-19); Chloride 95 mmol/L (98-107); Osmolality Calculated 283 mOsm/kg (285-295); Potassium 3.3 mmol/L (3.5-5.1); Sodium 134 mmol/L (136-145)
[2021-11-09 07:56] LABS: D Dimer 0.29 ug/mIFEU (0-0.59)
[2021-11-09 09:03] VITALS: BP 136/84; PULSE 78; RESP 20; TEMP 36.6; O2SAT 95
[2021-11-09 09:12] LABS: Troponin 5 2HR 6.72 ng/L (0-10)
[2021-11-09 09:31] LABS: Troponin 5 2HR Delta 0.72 ABS# (0-10)
== END 2021-11-09 09:24 | disposition home or self-care (01) ==
PROVIDERS: Emergency Provider Emergency Medicine; PCP Nurse Practitioner Family
DX: E66.2 Morbid (severe) obesity with alveolar hypoventilation (principal); G47.30 Sleep apnea, unspecified; J44.9 Chronic obstructive pulmonary disease, unspecified; I10 Essential (primary) hypertension; K21.9 Gastro-esophageal reflux disease without esophagitis; Z86.73 Personal history of transient ischemic attack (TIA), and cerebral infarction without residual deficits; Z86.711 Personal history of pulmonary embolism
CPT/HCPCS: 71045; 80048; 83880; 84484; 85025; 85378; 99284

== ENCOUNTER 2022-01-31 01:19 | Emergency (ER) | payer MEDICARE, MEDICAID, SELFPAY ==
[2022-01-31 01:26] VITALS: BP 131/90; PULSE 126; RESP 16; TEMP 36.6; O2SAT 98; BMI 54.6
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
[2022-01-31 01:50] VITALS: O2SAT 100
--- NOTE | 2022-01-31 01:50 | PC.NURSE ---
patient refusing morphine and zofran at this time. patient also requesting that triage room and waiting area be searched, stating that she cannot find her cell phone that 'has sea turtles on it'. waiting area and triage room searched, spoke with triaging nurse, who states patient did not have phone in sight during initial interview. patient notified who states it may be in my car .
[2022-01-31 02:07] VITALS: BP 120/83; PULSE 105; RESP 21; O2SAT 97
[2022-01-31 02:28] VITALS: BP 120/83; RESP 20; O2SAT 98
--- NOTE | 2022-01-31 03:06 | PC.NURSE ---
patient assisted to bathroom, clean catch urine obtained and sent to lab. returned to bed. no distress or requests.
[2022-01-31 03:07] VITALS: BP 117/83; PULSE 92; RESP 19; O2SAT 97
[2022-01-31 03:39] VITALS: BP 108/85; RESP 19; O2SAT 97
== END 2022-01-31 03:59 | disposition home or self-care (01) ==
PROVIDERS: Emergency Provider Emergency Medicine; PCP Nurse Practitioner Family
DX: R10.84 Generalized abdominal pain (principal); Z79.01 Long term (current) use of anticoagulants; Z79.84 Long term (current) use of oral hypoglycemic drugs; J44.9 Chronic obstructive pulmonary disease, unspecified; I10 Essential (primary) hypertension; Z86.73 Personal history of transient ischemic attack (TIA), and cerebral infarction without residual deficits
CPT/HCPCS: 74176; 99284

== ENCOUNTER 2022-01-31 13:20 | Emergency (ER) | payer MEDICARE, MEDICAID, SELFPAY ==
[2022-01-31] VITALS (22 sets, daily range): BP systolic 119–178; BP diastolic 79–117; PULSE 90–113; RESP 9–32; TEMP 36.4; O2SAT 96–100; BMI 54.7
[2022-01-31] MEDS: succinylcholine 20 mg/mL SDV 10mL 120 MG IV (13:21)
[2022-01-31] MEDS: propofol 10 mg/mL SDV 20 mL 100 MG IVP (13:25)
[2022-01-31] MEDS: vecuronium 10 mg SDV IVP (13:25)
--- NOTE | 2022-01-31 13:26 | ECG_ITS ---
[facility] Test Date: 2022-01-31 Pat Name: Heladio Branch Department: Room: Gender: Female Oxygen Therapy Technician: : 1975 Requested By: Waldemar Osborne Order Number: [id number] Adalid MD: Prasanth Nunn M.D. Measurements Intervals [place] Rate: 96 P: 41 WV: 152 QRS: 21 QRSD: 101 T: 57 QT: 387 QTc: 491 Interpretive Statements SINUS RHYTHM MODERATE ST DEPRESSION [0.05+ mV ST DEPRESSION] Compared to ECG 10/24/2021 20:25:45 ST (T wave) deviation now present Sinus tachycardia no longer present Electronically Signed On 01-31-2022 17:36:18 CDT by Prasanth Nunn M.D. [email or web address]
--- NOTE | 2022-01-31 13:32 | XRR_ITS ---
PROCEDURE INFORMATION: Exam: XR Chest Exam date and time: 01/31/2022 1:52 PM Age: 46 years old Clinical indication: Device placement; Ett placement (vent status); Additional info: Post-intubation TECHNIQUE: Imaging protocol: Radiologic exam of the chest. Views: 1 view. COMPARISON: CR XR chest 1V portable [id number] 11/09/2021 7:21 AM FINDINGS: Tubes, catheters and devices: A endotracheal tube is present 2.5 cm above the joel. NG tube extends into the stomach Lungs: Low lung volumes seen. No consolidation. Pleural spaces: Unremarkable. No pleural effusion. No pneumothorax. Heart/Mediastinum: Unremarkable. No cardiomegaly. Bones/joints: Unremarkable. XR/XR chest 1V portable [id number] IMPRESSION: 1. No acute findings. 2. NG tube is in the stomach. 3. Endotracheal tube is above the joel
[2022-01-31 13:35] LABS: Basophils % 0.1 %; Eosinophils % 0.1 %; Hematocrit 38.3 % (37.0-47.0); Hemoglobin 12.6 g/dL (11.5-15.3); Lymphocytes # 2.8 10^3/uL (0.8-4.8); Lymphocytes % 35.8 %; Mean Corpuscular HGB Conc 32.9 g/dL (30.0-36.0); Mean Corpuscular Volume 94.1 fl (81-99); Mean Platelet Volume 10.6 fL (7.4-10.4); Monocytes # 0.5 10^3/uL (0.2-0.9); Monocytes % 6.7 %; Neutrophils # 4.42 10^3/uL (1.8-7.7); Neutrophils % 56.9 %; Nucleated Red Blood Cells % 0 %; Platelet Count 246 10^3/cmm (130-400); Red Blood Count 4.07 10^6/uL (4.1-5.3); White Blood Count 7.8 10^3/uL (4.0-10.0)
--- NOTE | 2022-01-31 13:38 | PC.NURSE ---
This RN called poison control and spoke with Maya RN, pt had 9000mg witnessed overdose of Seroquel, the following information was received: Supportive care recommended with IVF and vasopressors for hypotension. S/S include drowsiness, coma, tachycardia. Immediate release max dose 1000mg in 24 hours with a peak of 1.5hr, Extended release max dose 2000mg and peak of 6 hours. Information relayed to Dr. Augustine.
--- NOTE | 2022-01-31 13:46 | ED_ITS ---
HPI - Overdose General: Chief Complaint: Overdose Stated Complaint: N Time Seen by Provider: 01/31/22 13:32 Source: patient and EMS Mode of arrival: EMS Limitations: altered mental status History of Present Illness: 46-year-old female presents emergency room after a suicide attempt where she ingested 8.7 mg of Seroquel. She had a new prescription bottle admit filled on 810 there were 27 pills left in the bottle assuming she had taken it daily since it was prescribed she would have taken 29 pills today. This coincided with what EMS was told by bystanders they had estimated that she taken 30 pills. On arrival patient is lethargic she admits to having taken the medication in an attempt to kill herself. She denies taking any other medications. Patient was emergently intubated after arrival because of her lethargy. Ingestion was with in 1 to 2 hours prior to arrival. MD complaint: intentional overdose Intent: suicide attempt How Overdose Was Discovered: family/friend present at time Review of Systems Const: Denies: fever(s), chills, body aches, change in appetite, fatigue or malaise ENMT: Denies: throat pain, ear or mastoid pain, nasal discharge or nasal congestion Card: Denies: chest pain, palpitations, edema, dyspnea on exertion or orthopnea Resp: Denies: dyspnea, productive cough, non-productive cough or wheezing GI: Denies: abdominal pain, nausea, vomiting, hematemesis, coffee ground emesi s, diarrhea, constipation, bloating, hematochezia or melena : Denies: flank pain, difficulty voiding, dysuria, urinary frequency or urinary urgency Skin/Breast: Denies: rash or pruritus [facility] ED 2 PFSH: Medical History Chronic constipation Controlled with medications followed by her primary care provider COPD (chronic obstructive pulmonary disease) Diagnosed in 2013 and is controlled with medication Depression Diagnosed at the age of 23 and has been on medication since then. She follows up with Dr. Benitez a psychiatrist and as well as therapy in [place]. She currently denies suicidal/homicidal ideation. Essential (primary) hypertension Diagnosed in 2019 and she follows up with Dr. Anderson and cardiology. Gastro-esophageal reflux disease without esophagitis Controlled with medication. H/O deep venous thrombosis Reports having a DVT in 2019 and states her warfarin dose was increased after this. She follows up with Dr. Crespo -had second DVT in 11/2019 and was taken off warfarin and is now on eliquis Obstructive sleep apnea Personal history of pulmonary embolism (~2012) States that she had a PE in 2012 and has been on warfarin since then. TIA (transient ischemic attack) Reports having had a TIA in 2019. Denies any neurological deficits. Foll owed by her primary care provider. Surgical History Status post conization of cervix Office LEEP procedure performed by Dr. Zelaya in 2005 for MARY-2 on Pap smear. 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 Status post knee surgery 2018-open knee surgery for torn ACL Status post left breast lumpectomy Patient reports having had 3 lumpectomies of her left breast in 1999, 2007 and 2009 for benign lesions. Family History Mother Hypertension Heart disease Grandmother Hypertension maternal and paternal Breast cancer maternal, diagnosed at age 43 Colon cancer maternal, diagnosed at age 63 Father Hypertension Grandfather Hypertension maternal and paternal Heart disease maternal Denies family history of Ovarian cancer Diabetes Uterine cancer Thyroid condition Stroke Social History Smoking and tobacco status: never smoked Second hand smoke exposure: Yes Alcohol intake: current Other details last substance use: last used 2013 per patient Lives independently: Yes Housing: House Marital status: Single Number of children: 0 service: No History of recent travel: No Physical Exam Const: GENERAL APPEARANCE: lethargic ORIENTATION/CONSCIOUSNESS: Yes lethargic HENMT: COMMON NORMALS: normocephalic, atraumatic and hearing grossly normal bilaterally HEAD & SCALP: normocephalic and atraumatic Eye: COMMON NORMALS: Equal, round and reactive pupils present, EOMs intact bilaterally, conjunctivae normal and no scleral icterus CONJUNCTIVA: Yes conjunctivae normal PUPIL: Yes Equal, round and reactive pupils present Neck/C-Spine: COMMON NORMALS: full ROM, no lymphadenopathy, supple and no JVD Lymph: LYMPHATIC: no lymphadenopathy noted and no lymphedema noted Resp: COMMON NORMALS: normal respiratory effort, No retractions, No use of accessory muscles and clear to auscultation bilaterally AUSCULTATION: clear to auscultation bilaterally Cardio: COMMON NORMALS: no JVD, regular rate, regular rhythm and No murmurs present (Cardio) RATE: regular rate RHYTHM: regular rhythm GI: COMMON NORMALS: Soft to palpation and No hepatosplenomegaly present AUSCULTATION: Yes normoactive bowel sounds PALPATION: Yes Soft to palpation, No Tenderness to palpation present (GI), No Guarding due to palpation present (GI) and Yes No hepatosplenomegaly present Extremity: COMMON NORMALS: normal to inspection, capillary refill normal, no clubbing, cyanosis or edema, no calf tenderness and no pedal edema Neuro: SENSORIUM/ORIENTATION: Yes lethargic Skin: COMMON NORMALS: no rashes or lesions noted GENERAL SKIN EXAM: no rashes or lesions noted Course Vital Signs: Vital signs: Vital Signs Temperature 97.6 F 01/31/22 13:28 Pulse Rate 96 01/31/22 16:15 Respiratory Rate 14 01/31/22 16:15 Blood Pressure 139/85 01/31/22 16:15 Pulse Oximetry 96 01/31/22 16:15 Oxygen Delivery Me thod 01/31/22 14:00 Fraction of Inspir ed Oxygen 40 01/31/22 15:21 MDM - Overdose Medical Decision Making Initial EKG does not show any prolonged QT blood pressure is actually elevated patient was very lethargic she has a history of obstructive sleep apnea given her lethargy and the amount ingested. Along with the fact that her anatomical appearance indicates that be very difficult intubation she was electively intubated to maintain control of her airway. We started on propofol for sedation we will also load her with Keppra. I did discuss with the patient prior to intubation her concerns and while we were recommending intubation she agreed to proceed. We do not have any ICU beds available at our facility and are making arrangements for transfer. Medical Records I reviewed the patient's medical records. Lab Data I reviewed the patient's lab results. : 01/31/22 13:30 01/31/22 13:30 Radiology Impressions Chest X-Ray 01/31/22 13:32 IMPRESSION: 1. No acute findings. 2. NG tube is in the stomach. 3. Endotracheal tube is above the joel Laboratory Results WBC 7.8 10^3/uL (4.0-10.0) 01/31/22 13: RBC 4.07 10^6/uL (4.1-5.3) L 01/31/22 13:30 Hgb 12.6 g/dL (11.5-15.3) 01/31/22 13: Hct 38.3 % (37.0-47.0) 01/31/22 13:30 MCV 94.1 fl (81-99) 01/31/22 13: MCH 31.0 pg (28.0-34.0) 01/31/22 13: MCHC 32.9 g/dL (30.0-36.0) 01/31/22 13: RDW 14.0 % (12.1-15.1) 01/31/22 13: Plt Count 246 10^3/cmm (130-400) 01/31/22 13: MPV 10.6 fL (7.4-10.4) H 01/31/22 13:30 Neut % (Auto) 56.9 % 01/31/22 13: Lymph % (Auto) 35.8 % 01/31/22 13:30 [place] % (Auto) 6.7 % 01/31/22 13:30 Eos % (Auto) 0.1 % 01/31/22 13: Baso % (Auto) 0.1 % 01/31/22: Neut # (Auto) 4.42 10^3/uL (1.8-7.7) 01/31/22 13: Lymph # (Auto) 2.8 10^3/uL (0.8-4.8) 01/31/22: [place] # (Auto) 0.5 10^3/uL (0.2-0.9) 01/31/22 13: Eos # (Auto) 0.0 10^3/uL (0.0-0.8) 01/31/22: Baso # (Auto) 0.0 10^3/uL (0.0-0.1) 01/31/22 13: Nucleated RBC % (auto) 0 % 01/31/22 13: Nucleated RBCs # 0.0 /100WBC 01/31/22 13:30 Specimen Type Arterial 01/31/22 14:05 Sample Site Radial, right 01/31/22 14:05 ABG pH 7.34 (7.35-7.45) L 01/31/22 14:05 ABG pCO2 47.8 mmHg (35-45) H 01/31/22 14:05 ABG pO2 269.0 mmHg (80.0-100.0) H 01/31/22 14:05 ABG HCO3 25.5 mmol/L (22-26) 01/31/22 14:05 ABG Base Excess -0.9 mmol/L (-2.0-2.0) 01/31/22 14:05 [place] Test Pos 01/31/22 14:05 Hematocrit 39.8 % (37-47) 01/31/22 14:05 O2 Delivery Device Vent 01/31/22 14:05 FiO2 100.0 % 01/31/22 14:05 Tidal Volume 0.40 01/31/22 14:05 PEEP 5.0 cmH20 01/31/22 14:05 Hydraulic Rockbreaker Operator ID Gd 01/31/22 14:05 Sodium 137 mmol/L (136-145) 01/31/22 13:30 Potassium 3.1 mmol/L (3.5-5.1) L 01/31/22 13:30 Chloride 96 mmol/L (98-107) L 01/31/22 13:30 Carbon Dioxide 25 mmol/L (22-29) 01/31/22 13:30 Anion Gap 19.1 (5-19) H 01/31/22 13:30 BUN 8 mg/dL (6-20) 01/31/22 13:30 Creatinine 1.0 mg/dL (0.5-0.9) H 01/31/22 13:30 GFR Calculation 60.2 mL/min (90-130) L 01/31/22 13:30 Glucose 227 mg/dL (65-115) H 01/31/22 13:30 Calculated Osmolality 289 mOsm/kg (285-295) 01/31/22 13:30 Lactic Acid 2.7 mmol/L (0.5-2.2) H 01/31/22 13:46 Calcium 8.8 mg/dL (8.5-10.5) 01/31/22 13:30 Magnesium 1.4 mg/dL (1.7-2.3) L 01/31/22 13:46 Total Bilirubin 0.3 mg/dL (0.15-1.2) 01/31/22 13:30 AST 21 U/L (0-32) 01/31/22 13:30 ALT 28 U/L (0-33) 01/31/22 13:30 Alkaline Phosphatase 92 U/L (35-105) 01/31/22 13:30 Creatine Kinase 48 U/L (26-192) 01/31/22 13:46 Total Protein 7.1 g/dL (6.6-8.7) 01/31/22 13:30 Albumin 4.1 g/dL (3.5-5.2) 01/31/22 13:30 Globulin 3.0 g/dL (1.3-4.6) 01/31/22 13:30 Urine Color Cancelled 01/31/22 13:30 Urine Color Straw (Yellow) 01/31/22 13:30 Urine Appearance Cancelled 01/31/22 13:30 Urine Appearance Clear (CLEAR) 01/31/22 13:30 Urine pH 6 (5-7) 01/31/22 13:30 Urine pH Cancelled 01/31/22 13:30 Ur Specific [place] 1.010 (1.005-1.030) 01/31/22 13:30 Ur Specific [place] Cancelled 01/31/22 13:30 Urine Protein Cancelled 01/31/22 13:30 Urine Protein Neg (Negative) 01/31/22 13:30 Urine Glucose (UA) 4+ (Normal) H 01/31/22 13:30 Urine Glucose (UA) Cancelled 01/31/22 13:30 Urine Ketones 1+ (Negative) H 01/31/22 13:30 Urine Ketones Cancelled 01/31/22 13:30 Urine Blood Cancelled 01/31/22 13:30 Urine Blood Neg (Negative) 01/31/22 13:30 Urine Nitrate Cancelled 01/31/22 13:30 Urine Nitrate Negative (Negative) 01/31/22 13:30 Urine Bilirubin Cancelled 01/31/22 13:30 Urine Bilirubin Neg (Negative) 01/31/22 13:30 Prot Sulfosalicylic Acd Cancelled 01/31/22 13:30 Urine Urobilinogen Cancelled 01/31/22 13:30 Urine Urobilinogen Norm mg/dL (Negative) 01/31/22 13:30 Ur Leukocyte Esterase Cancelled 01/31/22 13:30 Ur Leukocyte Esterase Trace (Negative) H 01/31/22 13:30 Urine RBC None /hpf (0-2) 01/31/22 13:30 Urine WBC 0-4 /hpf (0-5) H 01/31/22 13:30 Ur Squamous Epith Cells 5-10 /hpf (0-5) H 01/31/22 13:30 Amorphous Sediment Not Reportable 01/31/22 13:30 Urine Bacteria Trace /hpf (NONE) 01/31/22 13:30 Salicylates < 0.3 mg/dL (3-10) L 01/31/22 13:46 Urine Opiates Screen Negative ng/mL (Negative) 01/31/22 13:30 Acetaminophen < 5.0 ug/mL (10-30) L 01/31/22 13:46 Ur Barbiturates Screen Negative ng/mL (Negative) 01/31/22 13:30 Ur Phencyclidine Scrn Negative ng/mL (Negative) 01/31/22 13:30 Ur Amphetamines Screen Negative ng/mL (Negative) 01/31/22 13:30 U Benzodiazepines Scrn Positive ng/mL (Negative) H 01/31/22 13:30 Urine Cocaine Screen Negative ng/mL (Negative) 01/31/22 13:30 U Marijuana (THC) Screen Positive ng/mL (Negative) H 01/31/22 13:30 Ethyl Alcohol < 10 mg/dL (0-10) 01/31/22 13:46 SARS-CoV-2 Ag (Rapid) Negative (Negative) 01/31/22 14:50 Discharge Plan Discharge Patient Disposition: Xfer Short-Term Hosp Clinical Impression: Intentional overdose, Personal history of pulmonary embolism, Depression with suicidal ideation Condition: Stable Prescriptions: No Action albuterol sulfate [Ventolin HFA] 90 mcg/actuation HFA aerosol inhaler 2 puff INHALATION QID PRN (Reason: Shortness Of Breath) ferrous sulfate 325 mg (65 mg iron) tablet 325 mg PO QAM quetiapine 300 mg tablet 300 mg PO BEDTIME metformin 500 mg tablet 1,000 mg PO BID metoprolol tartrate 50 mg tablet 100 mg PO BID Mirena 20 mcg/24 hours (5 yrs) 52 mg intrauterine device 1 device INTRAUTERI .every 5 years Qty: 1 0RF alprazolam [Xanax] 2 mg Tablet 2 mg PO TID PRN (Reason: Anxiety) desvenlafaxine 100 mg Tablet Extended Release 24 Hr 100 mg PO DAILY potassium chloride 20 mEq tablet,ER particles/crystals 20 meq PO DAILY isosorbide dinitrate 20 mg tablet 20 mg PO BID desipramine 100 mg tablet 100 mg PO DAILY promethazine 25 mg tablet 25 mg PO Q6H PRN (Reason: nausea and vomiting) Qty: 20 0RF cholecalciferol (vitamin D3) 1,250 mcg (50,000 unit) capsule 1,250 mcg PO Q7D Rx Instructions: on glipizide 5 mg tablet 5 mg PO BID Eliquis 5 mg tablet 5 mg PO BID aripiprazole 5 mg tablet 5 mg PO BEDTIME omeprazole 40 mg Capsule,Delayed Release(Dr/Ec) 40 mg PO BEDTIME nystatin 100,000 unit/gram cream 1 applic TOPICAL BID PRN (Reason: Rash) Alive Women's Gummy Vitamin 200 mcg- 37.5 mg Tablet,Chewable 1 tab PO DAILY chlorthalidone 25 mg tablet 25 mg PO DAILY hydrocodone-acetaminophen 5-325 mg tablet 1 tab PO Q6H PRN (Reason: pain) Qty: 14 0RF ondansetron 4 mg tablet,disintegrating 4 mg PO Q6H PRN (Reason: nausea and vomiting) Qty: 14 0RF ergocalciferol (vitamin D2) 1,250 mcg (50,000 unit) capsule 1,250 mcg PO Q7D Referrals: Christa Chew APN [Primary Care Provider] - Coding Level of Care Code ED Clinical Engineer for Chg Fwd Exam Comprehensive
[2022-01-31 13:51] LABS: Amphetamines Screen Urine Negative (Negative); Barbiturates Screen Urine Negative (Negative); Benzodiazepines Screen Urine Positive (Negative); Cocaine Screen Urine Negative (Negative); Opiate Screen Urine Negative (Negative); PCP Screen Urine Negative (Negative); THC Screen Urine Positive (Negative)
[2022-01-31] MEDS: propofol 1,000 MG/100 ML INJ 34.8 MG IV (13:56)
[2022-01-31 13:57] LABS: Blood Urine Neg (Negative); Glucose Urine UA 4+ (Normal); Ketones Urine 1+ (Negative); Protein Urine Neg (Negative); Urine Appearance Clear (CLEAR); Urine Color Straw (Yellow); pH Urine 6 (5-7)
[2022-01-31 13:58] LABS: Add Urine Culture? No; Bacteria Urine TRACE /hpf; Bilirubin Urine Neg (Negative); Leukocyte Esterase Urine Trace (Negative); Nitrate Urine Negative (Negative); Urobilinogen Urine Norm (Negative); WBC Urine 0-4 /hpf (0-5)
[2022-01-31 14:11] LABS: Alanine Aminotransferase 28 U/L (0-33); Albumin Level 4.1 g/dL (3.5-5.2); Alkaline Phosphatase 92 U/L (35-105); Anion Gap 19.1 (5-19); Aspartate Amino Transferase 21 U/L (0-32); Blood Urea Nitrogen 8 mg/dL (6-20); Calcium 8.8 mg/dL (8.5-10.5); Carbon Dioxide 25 mmol/L (22-29); Chloride 96 mmol/L (98-107); Glomerular Filtration Rate 60.2 mL/min (90-130); Glucose 227 mg/dL (65-115); Osmolality Calculated 289 mOsm/kg (285-295); Potassium 3.1 mmol/L (3.5-5.1); Sodium 137 mmol/L (136-145); Total Bilirubin 0.3 mg/dL (0.15-1.2); Total Protein 7.1 g/dL (6.6-8.7)
[2022-01-31 14:24] LABS: ABG PCO2 47.8 mmHg (35-45); ABG PH Result 7.34 (7.35-7.45); Arterial Blood Gas Hematocrit 39.8 % (37-47); Base Excess ABG -0.9 mmol/L (-2.0-2.0); Blood Gas Allen Test Pos; Blood Gas Operator Identificat GD; Blood Gas Sample Site Radial, right; Blood Gas Sample Type Arterial; HCO3 ABG 25.5 mmol/L (22-26); Oxygen Device VENT
[2022-01-31 14:36] LABS: Lactic Sepsis W/Reflex 2.7 mmol/L (0.5-2.2)
[2022-01-31 14:55] LABS: Creatine Phosphokinase 48 U/L (26-192); Magnesium 1.4 mg/dL (1.7-2.3)
[2022-01-31 14:56] LABS: Acetaminophen < 5.0 ug/mL (10-30); Alcohol Level < 10 mg/dL (0-10); Salicylate < 0.3 mg/dL (3-10)
[2022-01-31 15:42] LABS: SARS Covid-2 Antigen Negative (Negative)
[2022-01-31 15:49] LABS: Reflex Lactate Order REFLEX LACTIC ORDERD
[2022-01-31] MEDS: propofol 1,000 MG/100 ML INJ 60.9 MG IV ×3 (15:57→18:00)
[2022-01-31] MEDS: potassium chloride premix 100 ML 25 MEQ IV (16:08)
[2022-01-31] MEDS: sodium chloride 0.9% 1,000 ML 999 ML IV (16:09)
[2022-01-31 17:28] LABS: Lactic Acid level (Lactate) 1.9 mmol/L (0.5-2.2)
== END 2022-01-31 18:10 | disposition short-term general hospital (02) ==
PROVIDERS: Emergency Provider Family Medicine; PCP Nurse Practitioner Family
DX: T43.592A Poisoning by other antipsychotics and neuroleptics, intentional self-harm, initial encounter (principal); Z86.711 Personal history of pulmonary embolism; F32.A Depression, unspecified; R45.851 Suicidal ideations; Z79.84 Long term (current) use of oral hypoglycemic drugs; Z79.01 Long term (current) use of anticoagulants; Z77.22 Contact with and (suspected) exposure to environmental tobacco smoke (acute) (chronic); J44.9 Chronic obstructive pulmonary disease, unspecified; I10 Essential (primary) hypertension; Z86.73 Personal history of transient ischemic attack (TIA), and cerebral infarction without residual deficits; Z20.822 Contact with and (suspected) exposure to COVID-19
CPT/HCPCS: 31500; 36415; 36600; 51702; 71045; 80053; 80306; 80307; 81001; 82550; 82803; 83605; 83735; 85025; 87070; 87205; 87426; 93005; 94002; 94799; 96365; 96366; 96367; 96368; 99291; J0330; J1953; J2704; J3475; J3480; J3490; J7030

== ENCOUNTER → 2022-02-23 16:27 | Outpatient (BNVA) | payer MEDICARE, MEDICAID, SELFPAY | PROVIDERS: PCP Nurse Practitioner Family; Visit Provider Family Medicine | DX: F41.9 Anxiety disorder, unspecified (principal); F32.9 Major depressive disorder, single episode, unspecified; E55.9 Vitamin D deficiency, unspecified; E61.1 Iron deficiency; I10 Essential (primary) hypertension; N93.9 Abnormal uterine and vaginal bleeding, unspecified; K21.9 Gastro-esophageal reflux disease without esophagitis; E11.9 Type 2 diabetes mellitus without complications | CPT/HCPCS: 80053; 82306; 82607; 83036; 83540; 84443; 85025 ==

== ENCOUNTER → 2022-04-06 17:23 | Outpatient (BNVA) | payer MEDICARE, MEDICAID, SELFPAY | PROVIDERS: PCP Family Medicine; Visit Provider Family Medicine | DX: J01.90 Acute sinusitis, unspecified (principal); Z20.822 Contact with and (suspected) exposure to COVID-19 | CPT/HCPCS: 87426 ==

== ENCOUNTER → 2022-04-11 10:23 | Outpatient (BNVA) | payer MEDICARE, MEDICAID, SELFPAY | PROVIDERS: PCP Family Medicine; Visit Provider Nurse Practitioner Family | DX: R30.9 Painful micturition, unspecified (principal); A08.4 Viral intestinal infection, unspecified; N39.0 Urinary tract infection, site not specified | CPT/HCPCS: 81003; 87086 ==

== ENCOUNTER 2022-04-13 06:23 | Emergency (ER) | payer MEDICARE, MEDICAID, SELFPAY ==
[2022-04-13 06:26] VITALS: BP 133/94; PULSE 96; RESP 20; TEMP 36.7; O2SAT 97; BMI 48.0
--- NOTE | 2022-04-13 06:31 | ED_ITS ---
HPI - Abdominal Pain General: Chief Complaint: Abdominal Pain Stated Complaint: ABD Pain LLQ/N/V/D x 7 Days Time Seen by Provider: 04/13/22 06:24 Source: patient Mode of arrival: ambulatory History of Present Illness: 26-year-old female presents emergency room with complaint of abdominal pain nausea vomiting and diarrhea for the last week. She seen her primary care doctor twice and has been given medications but they do not seem to be helping at all. She is also complaining of some dysuria. She denies any hematochezia or melena. States she is taken Phenergan with no significant relief. No fever sweats or chills. No previous abdominal surgeries. MD elicited complaint: abdominal pain Pertinent past history: none Onset (ago): minute(s) Pain Consistency: constant Location: None Severity: mild Quality: cramping Radiation: none Exacerbating factors: nothing Relieving factors: nothing Associated Symptoms: Reports GI cramping, diarrhea, dysuria and nausea; Denies anorexia, belching, bloating, change in bowel habits, change in stool character, chills, coffee ground emesis, constipation, dyspepsia, excessive f latus, fever(s), heartburn, hematochezia, hematuria, hematemesis, fecal incontinence, loose stools, melena, poor appetite, syncope and vomiting Review of Systems Const: Denies: fever(s), chills, fatigue or malaise ENMT: Denies: throat pain, ear or mastoid pain, nasal discharge or nasal congestion Card: Denies: chest pain, palpitations or syncope Resp: Denies: dyspnea, productive cough or non-productive cough GI: Reports: abdominal pain, nausea, diarrhea and GI cramping; Denies: vomiting, hematemesis, coffee ground emesis, heartburn, constipation, bloating, belching, excessive flatus, fecal incontinence, change in bowel habits, change in stool character, hematochezia or melena : Reports: dysuria; Denies: flank pain, difficulty voiding, urinary frequency, urinary urgency or hematuria Skin/Breast: Denies: rash or pruritus PFS ED PFSH: Medical History Chronic constipation Controlled with medications followed by her primary care provider COPD (chronic obstructive pulmonary disease) Diagnosed in 2013 and is controlled with medication COPD (chronic obstructive pulmonary disease) Depression Diagnosed at the age of 23 and has been on medication since then. She fol lows up with Dr. Benitez a psychiatrist and as well as therapy in [place]. She currently denies suicidal/homicidal ideation. Essential (primary) hypertension Diagnosed in 2019 and she follows up with Dr. Anderson and cardiology. Gastro-esophageal reflux disease without esophagitis Controlled with medication. H/O deep venous thrombosis Reports having a DVT in 2019 and states her warfarin dose was increased after this. She follows up with Dr. Crespo -had second DVT in 11/2019 and was taken off warfarin and is now on eliquis Obstructive sleep apnea Personal history of pulmonary embolism (~2012) States that she had a PE in 2012 and has been on warfarin since then. TIA (transient ischemic attack) Reports having had a TIA in 2019. Denies any neurological deficits. Followed by her primary care provider. Surgical History Status post conization of cervix Office LEEP procedure performed by Dr. Zelaya in 2005 for MARY-2 on Pap smear. 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 Status post knee surgery 2018-open knee surgery for torn ACL Status post left breast lumpectomy Patient reports having had 3 lumpectomies of her left breast in 1999, 2007 and 2009 for benign lesions. Family History Mother Hypertension Heart disease Grandmother Hypertension maternal and paternal Breast cancer maternal, diagnosed at age 43 Colon cancer maternal, diagnosed at age 63 Father Hypertension Grandfather Hypertension maternal and paternal Heart disease maternal Denies family history of Ovarian cancer Diabetes Uterine cancer Thyroid condition Stroke Social History Smoking and tobacco status: never smoked Second hand smoke exposure: Yes Alcohol intake: current Other details last substance use: last used 2013 per patient Lives independently: Yes Housing: House Marital status: Single Number of children: 0 service: No Current occupational status: disabled History of recent travel: No Current gender identity: Female Special tereza needs: No Agree to transfusion: Yes Physical Exam Const: GENERAL APPEARANCE: cooperative and comfortable ORIENTATION/CONSCIOUSNESS: Yes awake, Yes oriented to person, Yes oriented to place and Yes oriented to time HENMT: COMMON NORMALS: normocephalic, atraumatic and hearing grossly normal bilaterally HEAD & SCALP: normocephalic and atraumatic Resp: COMMON NORMALS: normal respiratory effort, No retractions, No use of accessory muscles and clear to auscultation bilaterally AUSCULTATION: clear to auscultation bilaterally Cardio: COMMON NORMALS: regular rate, regular rhythm and No murmurs present (Cardio) RATE: regular rate RHYTHM: regular rhythm GI: COMMON NORMALS: Soft to palpation and No hepatosplenomegaly present AUSCULTATION: Yes normoactive bowel sounds PALPATION: Yes Soft to palpation, No Tenderness to palpation present (GI), No Guarding due to palpation present (GI) and Yes No hepatosplenomegaly present Extremity: COMMON NORMALS: normal to inspection, capillary refill normal, no clubbing, cyanosis or edema, no calf tenderness and no pedal edema Neuro: SENSORIUM/ORIENTATION: Yes oriented to person, Yes oriented to place and Yes oriented to time Skin: COMMON NORMALS: no rashes or lesions noted GENERAL SKIN EXAM: no rashes or lesions noted Course Vital Signs: Vital signs: Vital Signs Temperature 98.1 F 04/13/22 09:40 Pulse Rate 92 04/13/22 09:40 Respiratory Rate 18 04/13/22 09:40 Blood Pressure 120/64 04/13/22 09:40 Pulse Oximetry 95 04/13/22 09:40 Oxygen Delivery Me thod 04/13/22 07:00 MDM - Abdominal Pain Medical Decision Making Labs and imaging reviewed discharge home on Cipro and. Promethazine to use as needed. Follow-up with primary care if not improving. Medical Records I reviewed the patient's medical records. Lab Data I reviewed the patient's lab results. : 04/13/22 06:40 04/13/22 06:40 Labs/Radiology: Laboratory Results WBC 7.3 10^3/uL (4.0-10.0) 04/13/22 06:40 RBC 4.80 10^6/uL (4.1-5.3) 04/13/22 06:40 Hgb 15.0 g/dL (11.5-15.3) 04/13/22 06:40 Hct 45.2 % (37.0-47.0) 04/13/22 06:40 MCV 94.2 fl (81-99) 04/13/22 06:40 MCH 31.3 pg (28.0-34.0) 04/13/22 06:40 MCHC 33.2 g/dL (30.0-36.0) 04/13/22 06:40 RDW 13.6 % (12.1-15.1) 04/13/22 06:40 Plt Count 336 10^3/cmm (130-400) 04/13/22 06:40 MPV 10.9 fL (7.4-10.4) H 04/13/22 06:40 Neut % (Auto) 70.0 % 04/13/22 06:40 Lymph % (Auto) 21.0 % 04/13/22 06:40 [place] % (Auto) 8.4 % 04/13/22 06:40 Eos % (Auto) 0.0 % 04/13/22 06:40 Baso % (Auto) 0.3 % 04/13/22 06:40 Neut # (Auto) 5.09 10^3/uL (1.8-7.7) 04/13/22 06:40 Lymph # (Auto) 1.5 10^3/uL (0.8-4.8) 04/13/22 06:40 [place] # (Auto) 0.6 10^3/uL (0.2-0.9) 04/13/22 06:40 Eos # (Auto) 0.0 10^3/uL (0.0-0.8) 04/13/22 06:40 Baso # (Auto) 0.0 10^3/uL (0.0-0.1) 04/13/22 06:40 Nucleated RBC % (auto) 0 % 04/13/22 06:40 Nucleated RBCs # 0.0 /100WBC 04/13/22 06:40 Sodium 133 mmol/L (136-145) L 04/13/22 06:40 Potassium 3.2 mmol/L (3.5-5.1) L 04/13/22 06:40 Chloride 91 mmol/L (98-107) L 04/13/22 06:40 Carbon Dioxide 27 mmol/L (22-29) 04/13/22 06:40 Anion Gap 18.2 (5-19) 04/13/22 06:40 BUN 16 mg/dL (6-20) 04/13/22 06:40 Creatinine 1.4 mg/dL (0.5-0.9) H 04/13/22 06:40 GFR Calculation 40.8 mL/min (90-130) L 04/13/22 06:40 Glucose 98 mg/dL (65-115) 04/13/22 06:40 POC Glucose 119 mg/dL (70-110) H 04/13/22 07:31 Calculated Osmolality 277 mOsm/kg (285-295) L 04/13/22 06:40 Calcium 10.2 mg/dL (8.5-10.5) 04/13/22 06:40 Total Bilirubin 0.3 mg/dL (0.15-1.2) 04/13/22 06:40 AST 35 U/L (0-32) H 04/13/22 06:40 ALT 51 U/L (0-33) H 04/13/22 06:40 Alkaline Phosphatase 90 U/L (35-105) 04/13/22 06:40 Total Protein 7.4 g/dL (6.6-8.7) 04/13/22 06:40 Albumin 4.5 g/dL (3.5-5.2) 04/13/22 06:40 Globulin 2.9 g/dL (1.3-4.6) 04/13/22 06:40 Lipase 54 U/L (13-60) 04/13/22 06:40 Urine Color Yellow (Yellow) 04/13/22 06:45 Urine Appearance Cloudy (CLEAR) A 04/13/22 06:45 Urine pH 5 (5-7) 04/13/22 06:45 Ur Specific [place] 1.015 (1.005-1.030) 04/13/22 06:45 Urine Protein 1+ (Negative) H 04/13/22 06:45 Urine Glucose (UA) 4+ (Normal) H 04/13/22 06:45 Urine Ketones 1+ (Negative) H 04/13/22 06:45 Urine Blood 3+ (Negative) H 04/13/22 06:45 Urine Nitrate Negative (Negative) 04/13/22 06:45 Urine Bilirubin 1+ (Negative) H 04/13/22 06:45 Urine Urobilinogen Norm mg/dL (Negative) 04/13/22 06:45 Ur Leukocyte Esterase 2+ (Negative) H 04/13/22 06:45 Urine RBC 5-10 /hpf (0-2) H 04/13/22 06:45 Urine WBC Too numerous to cnt /hpf (0-5) H 04/13/22 06:45 Ur Squamous Epith Cells 55-80 /hpf (0-5) H 04/13/22 06:45 Amorphous Sediment Not Reportable 04/13/22 06:45 Urine Bacteria 1+ /hpf (NONE) H 04/13/22 06:45 Urine Trichomonas 2+ /hpf H 04/13/22 06:45 Discharge Plan Discharge Patient Disposition: Home Clinical Impression: Cystitis, Type 2 diabetes mellitus Condition: Stable Prescriptions: New promethazine 25 mg tablet 25 mg PO Q6H PRN (Reason: nausea and vomiting) Qty: 20 0RF Cipro 500 mg tablet 500 mg PO BID Qty: 14 0RF Discontinued sulfamethoxazole-trimethoprim [Bactrim DS] 800-160 mg tablet 1 tab PO BID Qty: 10 0RF No Action albuterol sulfate [Ventolin HFA] 90 mcg/actuation HFA aerosol inhaler 2 puff INHALATION QID PRN (Reason: Shortness Of Breath) ferrous sulfate 325 mg (65 mg iron) tablet 325 mg PO QAM quetiapine 300 mg tablet 300 mg PO BEDTIME metformin 500 mg tablet 1,000 mg PO BID metoprolol tartrate 50 mg tablet 100 mg PO BID Jardiance 25 mg tablet 25 mg PO DAILY Qty: 30 0RF oxcarbazepine 300 mg tablet 300 mg PO BID Qty: 30 0RF promethazine 25 mg tablet 25 mg PO TID PRN (Reason: nausea and vomiting) Qty: 20 0RF budesonide-formoterol [Symbicort] 160-4.5 mcg/actuation HFA aerosol inhaler 1 puff inhalation BID Qty: 10.2 0RF meclizine 25 mg tablet See Rx Instructions PO TID PRN (Reason: dizziness) Qty: 20 0RF Rx Instructions: 1/2 to 1 tablet orally three times daily PRN; Will cause drowsiness fexofenadine-pseudoephedrine [Ivette-D 12 Hour] 60-120 mg tablet extended release 12 hr 1 tab PO Q12H PRN (Reason: allergy symptoms) Qty: 20 0RF Ozempic 0.25 mg or 0.5 mg(2 mg/1.5 mL) pen injector 0.25 mg SUBCUT .weekly Qty: 1.5 0RF Rx Instructions: inject 0.25 ml weekly x 4 weeks, increase to 0.50 ml weekly 340B alprazolam [Xanax] 2 mg Tablet 2 mg PO TID PRN (Reason: Anxiety) desvenlafaxine 100 mg Tablet Extended Release 24 Hr 100 mg PO DAILY potassium chloride 20 mEq tablet,ER particles/crystals 20 meq PO DAILY isosorbide dinitrate 20 mg tablet 20 mg PO BID desipramine 100 mg tablet 100 mg PO DAILY cholecalciferol (vitamin D3) 1,250 mcg (50,000 unit) capsule 1,250 mcg PO Q7D Rx Instructions: on glipizide 5 mg tablet 5 mg PO BID Eliquis 5 mg tablet 5 mg PO BID aripiprazole 5 mg tablet 5 mg PO BEDTIME omeprazole 40 mg Capsule,Delayed Release(Dr/Ec) 40 mg PO BEDTIME nystatin 100,000 unit/gram cream 1 applic TOPICAL BID PRN (Reason: Rash) Alive Women's Gummy Vitamin 200 mcg- 37.5 mg Tablet,Chewable 1 tab PO DAILY chlorthalidone 25 mg tablet 25 mg PO DAILY ondansetron 4 mg tablet,disintegrating 4 mg PO Q6H PRN (Reason: nausea and vomiting) Qty: 14 0RF ergocalciferol (vitamin D2) 1,250 mcg (50,000 unit) capsule 1,250 mcg PO Q7D Discharge Orders: Discharge ED (Routine); Ordered 04/13/22 Ordered By: Waldemar Augustine Referrals: Pham Jackman MD [Primary Care Provider] - Patient Instructions: Opioid Safety, Pain Management Coding Level of Care Code ED Package Center Supervisor for Chg Fwd Exam Detailed
[2022-04-13 06:32] VITALS: BP 136/90; PULSE 94; RESP 18; O2SAT 97
[2022-04-13] MEDS: ondansetron 2 mg/ML SDV 2 mL 4 MG IVP (06:49)
[2022-04-13] MEDS: sodium chloride 0.9% 1,000 ML 999 ML IV (06:49)
[2022-04-13 07:00] VITALS: BP 127/76; PULSE 92; RESP 18; TEMP 36.7; O2SAT 95
[2022-04-13 07:00] LABS: Basophils % 0.3 %; Hematocrit 45.2 % (37.0-47.0); Lymphocytes # 1.5 10^3/uL (0.8-4.8); Mean Corpuscular HGB Conc 33.2 g/dL (30.0-36.0); Mean Corpuscular Hemoglobin 31.3 pg (28.0-34.0); Mean Corpuscular Volume 94.2 fl (81-99); Mean Platelet Volume 10.9 fL (7.4-10.4); Monocytes # 0.6 10^3/uL (0.2-0.9); Monocytes % 8.4 %; Neutrophils # 5.09 10^3/uL (1.8-7.7); Nucleated Red Blood Cells % 0 %; Platelet Count 336 10^3/cmm (130-400); Red Cell Distribution Width 13.6 % (12.1-15.1); White Blood Count 7.3 10^3/uL (4.0-10.0)
[2022-04-13 07:05] LABS: Add Urine Microscopic? YES; Bilirubin Urine 1+ (Negative); Blood Urine 3+ (Negative); Glucose Urine UA 4+ (Normal); Ketones Urine 1+ (Negative); Leukocyte Esterase Urine 2+ (Negative); Nitrate Urine Negative (Negative); Protein Urine 1+ (Negative); Specific Gravity, Urine 1.015 (1.005-1.030); Squamous Epithelial Cell Urine 55-80 /hpf (0-5); Urine Appearance Cloudy (CLEAR); Urine Color Yellow (Yellow); Urobilinogen Urine Norm (Negative); WBC Urine TOO NUMEROUS TO CNT /hpf (0-5); pH Urine 5 (5-7)
[2022-04-13 07:06] LABS: Add Urine Culture? No; Bacteria Urine 1+ /hpf; Trichomonas Urine 2+ /hpf
[2022-04-13 07:12] LABS: Alanine Aminotransferase 51 U/L (0-33); Albumin Level 4.5 g/dL (3.5-5.2); Alkaline Phosphatase 90 U/L (35-105); Anion Gap 18.2 (5-19); Aspartate Amino Transferase 35 U/L (0-32); Blood Urea Nitrogen 16 mg/dL (6-20); Calcium 10.2 mg/dL (8.5-10.5); Carbon Dioxide 27 mmol/L (22-29); Chloride 91 mmol/L (98-107); Globulin 2.9 g/dL (1.3-4.6); Glomerular Filtration Rate 40.8 mL/min (90-130); Glucose 98 mg/dL (65-115); Lipase 54 U/L (13-60); Osmolality Calculated 277 mOsm/kg (285-295); Potassium 3.2 mmol/L (3.5-5.1); Sodium 133 mmol/L (136-145); Total Bilirubin 0.3 mg/dL (0.15-1.2); Total Protein 7.4 g/dL (6.6-8.7)
[2022-04-13] MEDS: ciprofloxacin 400 MG/200 ML PREMIX 200 MG IV (07:38)
[2022-04-13 07:47] LABS: Glucose Point of Care 119 mg/dL (70-110)
[2022-04-13] MEDS: promethazine 25 mg/mL SDV 1 mL IM (07:51)
[2022-04-13] MEDS: cefTRIAXone 1,000 MG in sodium chloride 0.9% (plus) 50 ML 100 MG IV (08:55)
[2022-04-13 09:40] VITALS: BP 120/64; PULSE 92; RESP 18; TEMP 36.7; O2SAT 95
== END 2022-04-13 09:43 | disposition home or self-care (01) ==
PROVIDERS: Emergency Provider Family Medicine; PCP Family Medicine
DX: N30.90 Cystitis, unspecified without hematuria (principal); E11.9 Type 2 diabetes mellitus without complications; Z79.01 Long term (current) use of anticoagulants; Z79.84 Long term (current) use of oral hypoglycemic drugs
CPT/HCPCS: 36416; 80053; 81001; 82962; 83690; 85025; 96372; J0696; J0744; J2405; J2550; J7030

== ENCOUNTER → 2022-05-30 09:25 | Outpatient (BNVA) | payer MEDICARE, SELFPAY | PROVIDERS: PCP Family Medicine; Visit Provider Family Medicine | DX: E11.9 Type 2 diabetes mellitus without complications (principal); E55.9 Vitamin D deficiency, unspecified; E61.1 Iron deficiency; G45.9 Transient cerebral ischemic attack, unspecified; I10 Essential (primary) hypertension | CPT/HCPCS: 80053; 80061; 82306; 83036; 85025 ==

== ENCOUNTER 2022-06-20 03:16 | Emergency (ER) | payer MEDICARE, MEDICAID, SELFPAY ==
--- NOTE | 2022-06-20 03:19 | ECG_ITS ---
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 Measurements Intervals [place] Rate: 108 P: 43 [place]: 150 QRS: 24 QRSD: 93 T: 48 QT: 342 QTc: 460 Interpretive Statements SINUS TACHYCARDIA ABNORMAL RHYTHM ECG Compared to ECG 01/31/2022 13:29:09 Sinus rhythm no longer present ST (T wave) deviation no longer present Electronically Signed On 06-21-2022 9:22:36 FINANCE VICE PRESIDENT by Kathy Anderson M.D. [id number]
--- NOTE | 2022-06-20 03:19 | XRR_ITS ---
PROCEDURE INFORMATION: Exam: XR Chest Exam date and time: 06/20/2022 3:52 AM Age: 47 years old Clinical indication: Pain; Chest pressure; Additional info: Cp TECHNIQUE: Imaging protocol: Radiologic exam of the chest. Views: 1 view. COMPARISON: CR XR chest 1V portable [id number] 01/31/2022 1:52 PM FINDINGS: Lungs: Unremarkable. No consolidation. Pleural spaces: Unremarkable. No pleural effusion. No pneumothorax. Heart/Mediastinum: Unremarkable. No cardiomegaly. Bones/joints: Unremarkable. XR/XR chest 1V portable [id number] IMPRESSION: No acute findings.
[2022-06-20 03:21] VITALS: BP 140/79; PULSE 116; RESP 20; TEMP 36.8; O2SAT 96; BMI 51.1
--- NOTE | 2022-06-20 03:21 | ED_ITS ---
HPI - Chest Pain General: Chief Complaint: Chest Pain Stated Complaint: cp Time Seen by Provider: 06/20/22 03:18 Source: patient and EMS Mode of arrival: EMS Limitations: no limitations History of Present Illness: 47-year-old female states she had chest pain over the last 24 hours states that it gotten worse tonight states the pain is a sharp pain in her left chest she denies any shortness of breath denies any diaphoresis she denies any worsening proving factors it was not improved by nitro or aspirin her pain is currently a 6 out of 10. Associated symptoms: Deny abdominal pain, dyspnea, fever(s), nausea or vomiting Review of Systems Const: Denies: fever(s), chills, body aches or change in appetite Eyes: Denies: blurry vision or eye discomfort ENMT: Denies: throat pain or dental pain Card: Reports: chest pain Resp: Denies: dyspnea GI: Denies: abdominal pain, nausea, vomiting or diarrhea : Denies: dysuria Musc: Denies: neck pain or back pain Skin/Breast: Denies: rash Neuro: Denies: headache(s) Psych: Denies: depression Ander/Lymph: Denies: easy bruising All/Imm: Denies: urticaria PFSH ED PFSH: Medical History Chronic constipation Controlled with medications followed by her primary care provider COPD (chronic obstructive pulmonary disease) Diagnosed in 2013 and is controlled with medication COPD (chronic obstructive pulmonary disease) Depression Diagnosed at the age of 23 and has been on medication since then. She follows up with Dr. Benitez a psychiatrist and as well as therapy in [place]. She currently denies suicidal/homicidal ideation. Essential (primary) hypertension Diagnosed in 2018 and she follows up with Dr. Anderson and cardiology. Gastro-esophageal reflux disease without esophagitis Controlled with medication. H/O deep venous thrombosis Reports having a DVT in 2019 and states her warfarin dose was increased after this. She follows up with Dr. Crespo -had second DVT in 11/2019 and was taken off warfarin and is now on eliquis Obstructive sleep apnea Personal history of pulmonary embolism (~2012) States that she had a PE in 2012 and has been on warfarin since then. TIA (transient ischemic attack) Reports having had a TIA in 2019. Denies any neurological deficits. Followed by her primary care provider. Surgical History Status post conization of cervix Office LEEP procedure performed by Dr. Zelaya in 2005 for MARY-2 on Pap smear. 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 Status post knee surgery 2018-open knee surgery for torn ACL Status post left breast lumpectomy Patient reports having had 3 lumpectomies of her left breast in 1999, 2007 and 2009 for benign lesions. Family History Mother Hypertension Heart disease Grandmother Hypertension maternal and paternal Breast cancer maternal, diagnosed at age 43 Colon cancer maternal, diagnosed at age 63 Father Hypertension Grandfather Hypertension maternal and paternal Heart disease maternal Denies family history of Ovarian cancer Diabetes Uterine cancer Thyroid condition Stroke Social History Smoking and tobacco status: never smoked Second hand smoke exposure: Yes Alcohol intake: current Other details last substance use: last used 2013 per patient Lives independently: Yes Housing: House Marital status: Single Number of children: 0 service: No Current occupational status: disabled History of recent travel: No Current gender identity: Female Special tereza needs: No Agree to transfusion: Yes Physical Exam Const: COMMON NORMALS: no acute distress, patient oriented x3 and healthy appearing HENMT: COMMON NORMALS: normocephalic and atraumatic HEAD & SCALP: normocephalic and atraumatic Eye: COMMON NORMALS: Equal, round and reactive pupils present and EOMs intact bilaterally PUPIL: Yes Equal, round and reactive pupils present Neck/C-Spine: COMMON NORMALS: full ROM and supple Chest: COMMONS NORMALS: normal inspection of the chest and normal palpation of entire chest wall Resp: COMMON NORMALS: normal respiratory effort, No retractions, No use of accessory muscles and clear to auscultation bilaterally AUSCULTATION: clear to auscultation bilaterally Cardio: COMMON NORMALS: regular rate, regular rhythm and No murmurs present (Cardio) RATE: regular rate RHYTHM: regular rhythm GI: COMMON NORMALS: Normal to inspection, nondistended, normoactive bowel sounds present, Soft to palpation, non-tender and no masses PALPATION: Yes Soft to palpation Extremity: COMMON NORMALS: normal to inspection and full ROM Neuro: COMMON NORMALS: patient oriented x3, moves all extremities and no focal motor deficits Psych: COMMON NORMALS: mental status grossly normal, Normal thought process present and cooperative THOUGHT PROCESS: Normal thought process present Skin: COMMON NORMALS: no rashes or lesions noted and no wounds GENERAL SKIN EXAM: no rashes or lesions noted Course Vital Signs: Vital signs: Vital Signs Temperature 98.2 F 06/20/22 03:21 Pulse Rate 104 H 06/20/22 03:46 Respiratory Rate 18 06/20/22 03:46 Blood Pressure 135/92 06/20/22 03:46 Pulse Oximetry 95 06/20/22 03:46 Oxygen Delivery Me thod 06/20/22 03:46 MDM - Chest Pain Medical Decision Making Patient presents for chest pains atypical in nature its been going on all day pain is improved here her troponin is 6 not believe we need a 2-hour troponin as her pain has been going on for quite some time she is stable for discharge she is to follow-up with her digital advertising specialist in 1 to 2 weeks return if worsening she understands agrees to plan. Lab Data 06/20/22 03:20 06/20/22 03:20 Laboratory Results WBC 9.3 10^3/uL (4.0-10.0) 06/20/22 03:20 RBC 4.81 10^6/uL (4.1-5.3) 06/20/22 03:20 Hgb 14.4 g/dL (11.5-15.3) 06/20/22 03:20 Hct 44.7 % (37.0-47.0) 06/20/22 03:20 MCV 92.9 fl (81-99) 06/20/22 03:20 MCH 29.9 pg (28.0-34.0) 06/20/22 03:20 MCHC 32.2 g/dL (30.0-36.0) 06/20/22 03:20 RDW 14.1 % (12.1-15.1) 06/20/22 03:20 Plt Count 344 10^3/cmm (130-400) 06/20/22 03:20 MPV 10.6 fL (7.4-10.4) H 06/20/22 03:20 Neut % (Auto) 70.4 % 06/20/22 03:20 Lymph % (Auto) 22.1 % 06/20/22 03:20 [place] % (Auto) 6.9 % 06/20/22 03:20 Eos % (Auto) 0.0 % 06/20/22 03:20 Baso % (Auto) 0.3 % 06/20/22 03:20 Neut # (Auto) 6.56 10^3/uL (1.8-7.7) 06/20/22 03:20 Lymph # (Auto) 2.1 10^3/uL (0.8-4.8) 06/20/22 03:20 [place] # (Auto) 0.6 10^3/uL (0.2-0.9) 06/20/22 03:20 Eos # (Auto) 0.0 10^3/uL (0.0-0.8) 06/20/22 03:20 Baso # (Auto) 0.0 10^3/uL (0.0-0.1) 06/20/22 03:20 Nucleated RBC % (auto) 0 % 06/20/22 03:20 Nucleated RBCs # 0.0 /100WBC 06/20/22 03:20 PT 13.00 SECONDS (12.1-14.9) 06/20/22 03:20 INR 0.95 (0.8-1.2) 06/20/22 03:20 Sodium 138 mmol/L (136-145) 06/20/22 03:20 Potassium 3.9 mmol/L (3.5-5.1) 06/20/22 03:20 Chloride 96 mmol/L (98-107) L 06/20/22 03:20 Carbon Dioxide 26 mmol/L (22-29) 06/20/22 03:20 Anion Gap 19.9 (5-19) H 06/20/22 03:20 BUN 11 mg/dL (6-20) 06/20/22 03:20 Creatinine 1.0 mg/dL (0.5-0.9) H 06/20/22 03:20 GFR Calculation 60.0 mL/min (90-130) L 06/20/22 03:20 Glucose 128 mg/dL (65-115) H 06/20/22 03:20 Calculated Osmolality 287 mOsm/kg (285-295) 06/20/22 03:20 Calcium 9.4 mg/dL (8.5-10.5) 06/20/22 03:20 Total Bilirubin 0.2 mg/dL (0.15-1.2) 06/20/22 03:20 AST 21 U/L (0-32) 06/20/22 03:20 ALT 34 U/L (0-33) H 06/20/22 03:20 Alkaline Phosphatase 105 U/L (35-105) 06/20/22 03:20 Troponin T Baseline 6 ng/L (0-10) 06/20/22 03:20 Total Protein 7.0 g/dL (6.6-8.7) 06/20/22 03:20 Albumin 4.2 g/dL (3.5-5.2) 06/20/22 03:20 Globulin 2.8 g/dL (1.3-4.6) 06/20/22 03:20 Lipase 64 U/L (13-60) H 06/20/22 03:20 EKG Data EKG 1: I personally reviewed and interpreted this EKG as follows: EKG interpretation date: 06/20/22 EKG interpretation time: 03:28 Interpretation: sinus tach hr [address] or t wavw abnormalities qrs 93 qtc 406 Discharge Plan Discharge Patient Disposition: Home Clinical Impression: Chest pain Condition: Stable Prescriptions: New hydrocodone-acetaminophen 5-325 mg tablet 1 tab PO Q6H PRN (Reason: pain) Qty: 14 0RF No Action albuterol sulfate [Ventolin HFA] 90 mcg/actuation HFA aerosol inhaler 2 puff INHALATION QID PRN (Reason: Shortness Of Breath) ferrous sulfate 325 mg (65 mg iron) tablet 325 mg PO QAM quetiapine 300 mg tablet 300 mg PO BEDTIME metformin 500 mg tablet 1,000 mg PO BID metoprolol tartrate 50 mg tablet 100 mg PO BID Jardiance 25 mg tablet 25 mg PO DAILY Qty: 30 0RF oxcarbazepine 300 mg tablet 300 mg PO BID Qty: 30 0RF promethazine 25 mg tablet 25 mg PO TID PRN (Reason: nausea and vomiting) Qty: 20 0RF Ozempic 0.25 mg or 0.5 mg(2 mg/1.5 mL) pen injector 0.5 mg SUBCUT .weekly Qty: 1.5 3RF Rx Instructions: inject 0.5 mg weekly 340B budesonide-formoterol [Symbicort] 160-4.5 mcg/actuation HFA aerosol inhaler 1 puff inhalation BID Qty: 10.2 0RF meclizine 25 mg tablet See Rx Instructions PO TID PRN (Reason: dizziness) Qty: 20 0RF Rx Instructions: 1/2 to 1 tablet orally three times daily PRN; Will cause drowsiness fexofenadine-pseudoephedrine [Ivette-D 12 Hour] 60-120 mg tablet extended release 12 hr 1 tab PO Q12H PRN (Reason: allergy symptoms) Qty: 20 0RF alprazolam [Xanax] 2 mg Tablet 2 mg PO TID PRN (Reason: Anxiety) desvenlafaxine 100 mg Tablet Extended Release 24 Hr 100 mg PO DAILY potassium chloride 20 mEq tablet,ER particles/crystals 20 meq PO DAILY isosorbide dinitrate 20 mg tablet 20 mg PO BID desipramine 100 mg tablet 100 mg PO DAILY cholecalciferol (vitamin D3) 1,250 mcg (50,000 unit) capsule 1,250 mcg PO Q7D Rx Instructions: on glipizide 5 mg tablet 5 mg PO BID Eliquis 5 mg tablet 5 mg PO BID aripiprazole 5 mg tablet 5 mg PO BEDTIME omeprazole 40 mg Capsule,Delayed Release(Dr/Ec) 40 mg PO BEDTIME nystatin 100,000 unit/gram cream 1 applic TOPICAL BID PRN (Reason: Rash) Alive Women's Gummy Vitamin 200 mcg- 37.5 mg Tablet,Chewable 1 tab PO DAILY chlorthalidone 25 mg tablet 25 mg PO DAILY ondansetron 4 mg tablet,disintegrating 4 mg PO Q6H PRN (Reason: nausea and vomiting) Qty: 14 0RF promethazine 25 mg tablet 25 mg PO Q6H PRN (Reason: nausea and vomiting) Qty: 20 0RF Cipro 500 mg tablet 500 mg PO BID Qty: 14 0RF ergocalciferol (vitamin D2) 1,250 mcg (50,000 unit) capsule 1,250 mcg PO Q7D Discharge Orders: Discharge ED (Routine); Ordered 06/20/22 Ordered By: Milagros Pat Referrals: Pham Jackman MD [Primary Care Provider] - Discharge Diet: Advance as tolerated Discharge Activity: Resume usual activity Patient Instructions: Chest Pain (ED) Coding Level of Care Code ED Supervisor Production Department for Chg Fwd Exam Comprehensive
[2022-06-20 03:28] LABS: Basophils % 0.3 %; Hematocrit 44.7 % (37.0-47.0); Hemoglobin 14.4 g/dL (11.5-15.3); Lymphocytes # 2.1 10^3/uL (0.8-4.8); Lymphocytes % 22.1 %; Mean Corpuscular HGB Conc 32.2 g/dL (30.0-36.0); Mean Corpuscular Hemoglobin 29.9 pg (28.0-34.0); Mean Corpuscular Volume 92.9 fl (81-99); Mean Platelet Volume 10.6 fL (7.4-10.4); Monocytes # 0.6 10^3/uL (0.2-0.9); Monocytes % 6.9 %; Neutrophils # 6.56 10^3/uL (1.8-7.7); Neutrophils % 70.4 %; Nucleated Red Blood Cells % 0 %; Platelet Count 344 10^3/cmm (130-400); Red Blood Count 4.81 10^6/uL (4.1-5.3); Red Cell Distribution Width 14.1 % (12.1-15.1); White Blood Count 9.3 10^3/uL (4.0-10.0)
[2022-06-20] MEDS: labetalol 5 mg/mL SDV 20mL 10 MG IVP (03:36)
[2022-06-20] MEDS: morphine 4 mg/mL SDV 1 mL IVP (03:36)
[2022-06-20 03:40] VITALS: PULSE 105; RESP 24; O2SAT 96
[2022-06-20 03:43] LABS: INR 0.95 (0.8-1.2)
[2022-06-20 03:45] LABS: Alanine Aminotransferase 34 U/L (0-33); Albumin Level 4.2 g/dL (3.5-5.2); Alkaline Phosphatase 105 U/L (35-105); Anion Gap 19.9 (5-19); Aspartate Amino Transferase 21 U/L (0-32); Blood Urea Nitrogen 11 mg/dL (6-20); Calcium 9.4 mg/dL (8.5-10.5); Carbon Dioxide 26 mmol/L (22-29); Chloride 96 mmol/L (98-107); Globulin 2.8 g/dL (1.3-4.6); Glucose 128 mg/dL (65-115); Lipase 64 U/L (13-60); Osmolality Calculated 287 mOsm/kg (285-295); Potassium 3.9 mmol/L (3.5-5.1); Sodium 138 mmol/L (136-145); Total Bilirubin 0.2 mg/dL (0.15-1.2)
[2022-06-20 03:46] VITALS: BP 135/92; PULSE 104; RESP 18; O2SAT 95
[2022-06-20 03:50] LABS: Troponin(5th) Baseline 6 ng/L (0-10)
[2022-06-20 04:36] VITALS: BP 145/86; PULSE 102; RESP 20
[2022-06-20 05:56] LABS: Glucose Point of Care 139 mg/dL (70-110)
== END 2022-06-20 04:24 | disposition home or self-care (01) ==
PROVIDERS: Emergency Provider Emergency Medicine; PCP Family Medicine
DX: R07.9 Chest pain, unspecified (principal); Z79.01 Long term (current) use of anticoagulants; Z79.84 Long term (current) use of oral hypoglycemic drugs; Z77.22 Contact with and (suspected) exposure to environmental tobacco smoke (acute) (chronic); J44.9 Chronic obstructive pulmonary disease, unspecified; I10 Essential (primary) hypertension; Z86.73 Personal history of transient ischemic attack (TIA), and cerebral infarction without residual deficits
CPT/HCPCS: 36416; 71045; 80053; 82962; 83690; 84484; 85025; 85610; 93005; 96374; 96375; 99285; J2270; J3490

== ENCOUNTER 2022-07-02 12:37 | Emergency (ER) | payer MEDICARE, MEDICAID, SELFPAY ==
[2022-07-02 12:53] VITALS: BP 130/94; PULSE 94; RESP 18; TEMP 36.4; O2SAT 96; BMI 51.0
--- NOTE | 2022-07-02 13:12 | ED_ITS ---
HPI - Nausea/Vomiting/Diarrhea General: Chief complaint: Nausea/Vomiting/Diarrhea Stated complaint: N/V/D Time Seen by Provider: 07/02/22 12:49 History of Present Illness: 47-year-old female presents with nausea, vomiting and diarrhea. Patient reports been going on for about a week. She saw her primary care provider 6 days ago was given some Zofran to help for a couple days. They then had a call her and another medication to help. She reports that she just continues to have some nausea vomiting. She is got some pain on the right side of her abdomen mainly in the right lower portion. She denies any fever or chills. She has some burning with urination. She denies any cough, sore throat or other systemic complaints. Associated nausea: Yes Associated symtoms: Reports dysuria, malaise and nausea; Denies chest pain or palpitations Review of Systems Const: Reports: malaise; Denies: fever(s) or chills Card: Denies: chest pain or palpitations Resp: Denies: dyspnea, productive cough or wheezing GI: Reports: abdominal pain, nausea, vomiting and diarrhea : Reports: flank pain and dysuria; Denies: difficulty voiding Skin/Breast: Denies: rash PFSH ED PFSH: Medical History Chronic constipation Controlled with medications followed by her primary care provider COPD (chronic obstructive pulmonary disease) Diagnosed in 2013 and is controlled with medication COPD (chronic obstructive pulmonary disease) Depression Diagnosed at the age of 23 and has been on medication since then. She follows up with Dr. Benitez a psychiatrist and as well as therapy in [place]. She currently denies suicidal/homicidal ideation. Essential (primary) hypertension Diagnosed in 2019 and she follows up with Dr. Anderson and cardiology. Gastro-esophageal reflux disease without esophagitis Controlled with medication. H/O deep venous thrombosis Reports having a DVT in 2019 and states her warfarin dose was increased after this. She follows up with Dr. Crespo -had second DVT in 11/2019 and was taken off warfarin and is now on eliquis Obstructive sleep apnea Personal history of pulmonary embolism (~2012) States that she had a PE in 2012 and has been on warfarin since then. TIA (transient ischemic attack) Reports having had a TIA in 2019. Denies any neurological deficits. Followed by her primary care provider. Surgical History Status post conization of cervix Office LEEP procedure performed by Dr. Zelaya in 2005 for MARY-2 on Pap smear. 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 Status post knee surgery 2018-open knee surgery for torn ACL Status post left breast lumpectomy Patient reports having had 3 lumpectomies of her left breast in 1999, 2007 and 2009 for benign lesions. Family History Mother Hypertension Heart disease Grandmother Hypertension maternal and paternal Breast cancer maternal, diagnosed at age 43 Colon cancer maternal, diagnosed at age 63 Father Hypertension Grandfather Hypertension maternal and paternal Heart disease maternal Denies family history of Ovarian cancer Diabetes Uterine cancer Thyroid condition Stroke Social History Smoking and tobacco status: never smoked Second hand smoke exposure: Yes Alcohol intake: current Other details last substance use: last used 2013 per patient Lives independently: Yes Housing: House Marital status: Single Number of children: 0 service: No Current occupational status: disabled History of recent travel: No Current gender identity: Female Special tereza needs: No Agree to transfusion: Yes Physical Exam Const: COMMON NORMALS: no acute distress, patient oriented x3 and no limitations HENMT: COMMON NORMALS: hearing grossly normal bilaterally and moist oral mucous membranes Resp: COMMON NORMALS: normal respiratory effort, No retractions, No use of accessory muscles and clear to auscultation bilaterally EFFORT & INSPECTION: Yes able to speak in complete sentences AUSCULTATION: clear to auscultation bilaterally Cardio: COMMON NORMALS: regular rhythm RATE: tachycardic RHYTHM: regular rhythm GI: COMMON NORMALS: Soft to palpation PALPATION: Yes Soft to palpation and Yes Tenderness to palpation present (GI) Details: RLQ and RUQ : BLADDER/KIDNEY EXAM: Yes CVA tenderness on the right (Mild) Back/Pelvis: GENERAL BACK: Yes CVA tenderness Extremity: COMMON NORMALS: normal to inspection and capillary refill normal Neuro: COMMON NORMALS: patient oriented x3, moves all extremities, no focal motor deficits and no sensory deficits noted Psych: COMMON NORMALS: mental status grossly normal, cooperative and normal affect Course Vital Signs: Vital signs: Vital Signs Temperature 97.5 F L 07/02/22 12:53 Pulse Rate 94 07/02/22 12:53 Respiratory Rate 18 07/02/22 12:53 Blood Pressure 130/94 07/02/22 12:53 Pulse Oximetry 96 07/02/22 12:53 Oxygen Delivery Me thod 07/02/22 12:53 MDM - Nausea/Vomiting/Diarrhea Medical Decision Making Reviewed patient's labs and her previous labs. She has a slight elevation of white count and CRP. Patient no significant findings on the rest of her labs outside of her urinalysis. Urinalysis is somewhat dirty however with her symptoms it can be concerning for potential urinary tract infection. Patient had a CT abdomen pelvis that showed no acute findings. Her symptoms may be a result of a viral gastroenteritis as there has been significant number of sim ilar symptoms in patients in the ER today. However with her urine I will treat her with Cipro should help both her diarrhea and her cystitis. Patient is feeling better following treatment and here in the ER. She is stable and discharged home Lab Data 07/02/22 13:20 07/02/22 13:20 Radiology Impressions Abdomen/Pelvis CT 07/02/22 14:12 IMPRESSION: There are no acute concerning abnormalities. Laboratory Results WBC 11.0 10^3/uL (4.0-10.0) H 07/02/22 13:20 RBC 5.26 10^6/uL (4.1-5.3) 07/02/22 13:20 Hgb 15.7 g/dL (11.5-15.3) H 07/02/22 13:20 Hct 47.6 % (37.0-47.0) H 07/02/22 13:20 MCV 90.5 fl (81-99) 07/02/22 13:20 MCH 29.8 pg (28.0-34.0) 07/02/22 13:20 MCHC 33.0 g/dL (30.0-36.0) 07/02/22 13:20 RDW 13.7 % (12.1-15.1) 07/02/22 13:20 Plt Count 396 10^3/cmm (130-400) 07/02/22 13:20 MPV 10.5 fL (7.4-10.4) H 07/02/22 13:20 Neut % (Auto) 69.2 % 07/02/22 13:20 Lymph % (Auto) 23.3 % 07/02/22 13:20 [place] % (Auto) 7.0 % 07/02/22 13:20 Eos % (Auto) 0.0 % 07/02/22 13:20 Baso % (Auto) 0.3 % 07/02/22 13:20 Neut # (Auto) 7.58 10^3/uL (1.8-7.7) 07/02/22 13:20 Lymph # (Auto) 2.6 10^3/uL (0.8-4.8) 07/02/22 13:20 Marshall # (Auto) 0.8 10^3/uL (0.2-0.9) 07/02/22 13:20 Eos # (Auto) 0.0 10^3/uL (0.0-0.8) 07/02/22 13:20 Baso # (Auto) 0.0 10^3/uL (0.0-0.1) 07/02/22 13:20 Nucleated RBC % (auto) 0 % 07/02/22 13:20 Nucleated RBCs # 0.0 /100WBC 07/02/22 13:20 Sodium 136 mmol/L (136-145) 07/02/22 13:20 Potassium 3.2 mmol/L (3.5-5.1) L 07/02/22 13:20 Chloride 90 mmol/L (98-107) L 07/02/22 13:20 Carbon Dioxide 27 mmol/L (22-29) 07/02/22 13:20 Anion Gap 22.2 (5-19) H 07/02/22 13:20 BUN 13 mg/dL (6-20) 07/02/22 13:20 Creatinine 1.2 mg/dL (0.5-0.9) H 07/02/22 13:20 GFR Calculation 48.6 mL/min (90-130) L 07/02/22 13:20 Glucose 119 mg/dL (65-115) H 07/02/22 13:20 Calculated Osmolality 283 mOsm/kg (285-295) L 07/02/22 13:20 Calcium 10.2 mg/dL (8.5-10.5) 07/02/22 13:20 Total Bilirubin 0.2 mg/dL (0.15-1.2) 07/02/22 13:20 AST 44 U/L (0-32) H 07/02/22 13:20 ALT 55 U/L (0-33) H 07/02/22 13:20 Alkaline Phosphatase 99 U/L (35-105) 07/02/22 13:20 C-Reactive Protein 26.9 mg/L (0.0-4.9) H 07/02/22 13:20 Total Protein 8.8 g/dL (6.6-8.7) H 07/02/22 13:20 Albumin 4.8 g/dL (3.5-5.2) 07/02/22 13:20 Globulin 4.0 g/dL (1.3-4.6) 07/02/22 13:20 Lipase 50 U/L (13-60) 07/02/22 13:20 Urine Color Dark yellow (Yellow) 07/02/22 13:52 Urine Appearance Cloudy (CLEAR) A 07/02/22 13:52 Urine pH 5 (5-7) 07/02/22 13:52 Ur Specific [place] 1.015 (1.005-1.030) 07/02/22 13:52 Urine Protein 1+ (Negative) H 07/02/22 13:52 Urine Glucose (UA) 4+ (Normal) H 07/02/22 13:52 Urine Ketones 1+ (Negative) H 07/02/22 13:52 Urine Blood 3+ (Negative) H 07/02/22 13:52 Urine Nitrate Negative (Negative) 07/02/22 13:52 Urine Bilirubin 1+ (Negative) H 07/02/22 13:52 Urine Urobilinogen 1 mg/dL (Negative) H 07/02/22 13:52 Ur Leukocyte Esterase 2+ (Negative) H 07/02/22 13:52 Urine RBC 5-10 /hpf (0-2) H 07/02/22 13:52 Urine WBC >100 /hpf (0-5) H 07/02/22 13:52 Ur Squamous Epith Cells 5-10 /hpf (0-5) H 07/02/22 13:52 Amorphous Sediment Not Reportable 07/02/22 13:52 Urine Bacteria 2+ /hpf (NONE) H 07/02/22 13:52 Influenza Type A Ag negative (Negative) 07/02/22 13:20 Influenza Type B Ag negative (Negative) 07/02/22 13:20 SARS-CoV-2 Ag (Rapid) negative (Negative) 07/02/22 13:20 Discharge Plan Discharge Condition: Stable Prescriptions: No Action albuterol sulfate [Ventolin HFA] 90 mcg/actuation HFA aerosol inhaler 2 puff INHALATION QID PRN (Reason: Shortness Of Breath) ferrous sulfate 325 mg (65 mg iron) tablet 325 mg PO QAM quetiapine 300 mg tablet 300 mg PO BEDTIME metformin 500 mg tablet 1,000 mg PO BID metoprolol tartrate 50 mg tablet 100 mg PO BID Jardiance 25 mg tablet 25 mg PO DAILY Qty: 30 0RF oxcarbazepine 300 mg tablet 300 mg PO BID Qty: 30 0RF promethazine 25 mg tablet 25 mg PO TID PRN (Reason: nausea and vomiting) Qty: 20 0RF Ozempic 0.25 mg or 0.5 mg(2 mg/1.5 mL) pen injector 0.5 mg SUBCUT .weekly Qty: 1.5 3RF Rx Instructions: inject 0.5 mg weekly 340B budesonide-formoterol [Symbicort] 160-4.5 mcg/actuation HFA aerosol inhaler 1 puff inhalation BID Qty: 10.2 0RF meclizine 25 mg tablet See Rx Instructions PO TID PRN (Reason: dizziness) Qty: 20 0RF Rx Instructions: 1/2 to 1 tablet orally three times daily PRN; Will cause drowsiness fexofenadine-pseudoephedrine [Ivette-D 12 Hour] 60-120 mg tablet extended release 12 hr 1 tab PO Q12H PRN (Reason: allergy symptoms) Qty: 20 0RF promethazine 25 mg tablet 25 mg PO Q6H PRN (Reason: nausea and vomiting) Qty: 20 0RF alprazolam [Xanax] 2 mg Tablet 2 mg PO TID PRN (Reason: Anxiety) desvenlafaxine 100 mg Tablet Extended Release 24 Hr 100 mg PO DAILY potassium chloride 20 mEq tablet,ER particles/crystals 20 meq PO DAILY isosorbide dinitrate 20 mg tablet 20 mg PO BID desipramine 100 mg tablet 100 mg PO DAILY cholecalciferol (vitamin D3) 1,250 mcg (50,000 unit) capsule 1,250 mcg PO Q7D Rx Instructions: on glipizide 5 mg tablet 5 mg PO BID Eliquis 5 mg tablet 5 mg PO BID aripiprazole 5 mg tablet 5 mg PO BEDTIME omeprazole 40 mg Capsule,Delayed Release(Dr/Ec) 40 mg PO BEDTIME nystatin 100,000 unit/gram cream 1 applic TOPICAL BID PRN (Reason: Rash) Alive Women's Gummy Vitamin 200 mcg- 37.5 mg Tablet,Chewable 1 tab PO DAILY chlorthalidone 25 mg tablet 25 mg PO DAILY ondansetron 4 mg tablet,disintegrating 4 mg PO Q6H PRN (Reason: nausea and vomiting) Qty: 14 0RF Cipro 500 mg tablet 500 mg PO BID Qty: 14 0RF hydrocodone-acetaminophen 5-325 mg tablet 1 tab PO Q6H PRN (Reason: pain) Qty: 14 0RF ergocalciferol (vitamin D2) 1,250 mcg (50,000 unit) capsule 1,250 mcg PO Q7D Referrals: Pham Jackman MD [Primary Care Provider] - Coding Level of Care Code ED Measurement Coordinator for Chg Fwd Exam Comprehensive
[2022-07-02] MEDS: diphenhydrAMINE 50 mg/mL SDV 1mL 25 MG IVP (13:17)
[2022-07-02] MEDS: metoclopramide 5 mg/mL SDV 2 mL 10 MG IVP (13:17)
[2022-07-02] MEDS: sodium chloride 0.9% 1,000 ML 999 ML IV (13:19)
[2022-07-02 13:32] LABS: Basophils % 0.3 %; Hematocrit 47.6 % (37.0-47.0); Hemoglobin 15.7 g/dL (11.5-15.3); Lymphocytes # 2.6 10^3/uL (0.8-4.8); Lymphocytes % 23.3 %; Mean Corpuscular Hemoglobin 29.8 pg (28.0-34.0); Mean Corpuscular Volume 90.5 fl (81-99); Mean Platelet Volume 10.5 fL (7.4-10.4); Monocytes # 0.8 10^3/uL (0.2-0.9); Neutrophils # 7.58 10^3/uL (1.8-7.7); Neutrophils % 69.2 %; Nucleated Red Blood Cells % 0 %; Platelet Count 396 10^3/cmm (130-400); Red Blood Count 5.26 10^6/uL (4.1-5.3); Red Cell Distribution Width 13.7 % (12.1-15.1)
[2022-07-02 13:53] LABS: Alanine Aminotransferase 55 U/L (0-33); Albumin Level 4.8 g/dL (3.5-5.2); Alkaline Phosphatase 99 U/L (35-105); Anion Gap 22.2 (5-19); Aspartate Amino Transferase 44 U/L (0-32); Blood Urea Nitrogen 13 mg/dL (6-20); C Reactive Protein 26.9 mg/L (0.0-4.9); Calcium 10.2 mg/dL (8.5-10.5); Carbon Dioxide 27 mmol/L (22-29); Chloride 90 mmol/L (98-107); Glomerular Filtration Rate 48.6 mL/min (90-130); Glucose 119 mg/dL (65-115); Lipase 50 U/L (13-60); Osmolality Calculated 283 mOsm/kg (285-295); Potassium 3.2 mmol/L (3.5-5.1); Sodium 136 mmol/L (136-145); Total Bilirubin 0.2 mg/dL (0.15-1.2); Total Protein 8.8 g/dL (6.6-8.7)
[2022-07-02 13:58] LABS: SARS Covid-2 Antigen negative (Negative)
[2022-07-02 13:59] LABS: Influenza A by IFA negative (Negative); Influenza B by IFA negative (Negative)
[2022-07-02 14:09] LABS: Add Urine Microscopic? YES; Bilirubin Urine 1+ (Negative); Blood Urine 3+ (Negative); Glucose Urine UA 4+ (Normal); Ketones Urine 1+ (Negative); Leukocyte Esterase Urine 2+ (Negative); Nitrate Urine Negative (Negative); Protein Urine 1+ (Negative); Specific Gravity, Urine 1.015 (1.005-1.030); Urine Appearance Cloudy (CLEAR); Urine Color Dark Yellow (Yellow); Urobilinogen Urine 1 mg/dL (Negative); pH Urine 5 (5-7)
[2022-07-02 14:10] LABS: Add Urine Culture? Yes; Bacteria Urine 2+ /hpf; WBC Urine >100 /hpf (0-5)
--- NOTE | 2022-07-02 14:12 | CTR_ITS ---
PROCEDURE INFORMATION: Exam: CT Abdomen And Pelvis Without Contrast Exam date and time: 07/02/2022 2:57 PM Age: 47 years old Clinical indication: Abdominal pain; Flank; Right; Additional info: Flank pain, right sided pain, hematuria TECHNIQUE: Imaging protocol: Computed tomography of the abdomen and pelvis without contrast. Radiation optimization: All CT scans at this facility use at least one of these dose optimization techniques: automated exposure control; mA and/or kV adjustment per patient size (includes targeted exams where dose is matched to clinical indication); or iterative reconstruction. COMPARISON: CT abdomen pelvis con [id number] 01/31/2022 2:18 AM RADIATION DOSE METRICS: Total DLP (mGy-cm): 1333.13 FINDINGS: Tubes, catheters and devices: There is an intrauterine device without complication. Liver: Findings consistent with fatty infiltration of the liver are identified. Gallbladder and bile ducts: Normal. No calcified stones. No ductal dilation. Pancreas: Normal. No ductal dilation. Spleen: Normal. No splenomegaly. Adrenal glands: Normal. No mass. Kidneys and ureters: No renal calcification or hydronephrosis. Stomach and bowel: Unremarkable. No obstruction. No mucosal thickening. Appendix: The appendix is visualized and appears normal. Intraperitoneal space: Unremarkable. No free air. No significant fluid collection. Vasculature: Unremarkable. No abdominal aortic aneurysm. Lymph nodes: Unremarkable. No enlarged lymph nodes. Urinary bladder: Unremarkable as visualized. Reproductive: There is uterine fibroid as before. Bones/joints: Unremarkable. No acute fracture. Soft tissues: Unremarkable. CT/CT abdomen pelvis [facility] [id number] IMPRESSION: There are no acute concerning abnormalities.
[2022-07-02] MEDS: ketorolac 30 mg/mL INJ 15 MG IVP (14:52)
== END 2022-07-02 16:38 | disposition home or self-care (01) ==
PROVIDERS: Emergency Provider Student in an Organized Health Care Education/Training Program; PCP Family Medicine
DX: R11.2 Nausea with vomiting, unspecified (principal); R19.7 Diarrhea, unspecified; Z79.84 Long term (current) use of oral hypoglycemic drugs; Z79.01 Long term (current) use of anticoagulants; Z20.822 Contact with and (suspected) exposure to COVID-19; J44.9 Chronic obstructive pulmonary disease, unspecified; I10 Essential (primary) hypertension; Z86.73 Personal history of transient ischemic attack (TIA), and cerebral infarction without residual deficits
CPT/HCPCS: 74176; 80053; 81001; 83690; 85025; 86140; 87086; 87426; 87804; 96374; 96375; 99285; J1200; J1885; J2765; J7030

== ENCOUNTER 2022-09-13 14:56 | Emergency (ER) | payer MEDICARE, MEDICAID, SELFPAY ==
[2022-09-13 15:11] VITALS: BP 131/89; PULSE 106; RESP 17; TEMP 36.4; O2SAT 96; BMI 46.4
[2022-09-13 16:21] VITALS: BP 157/94; PULSE 107; RESP 16; TEMP 36.7; O2SAT 97
[2022-09-13 16:46] LABS: Basophils % 0.3 %; Eosinophils % 0.2 %; Hematocrit 47.7 % (37.0-47.0); Hemoglobin 15.4 g/dL (11.5-15.3); Lymphocytes # 2.3 10^3/uL (0.8-4.8); Lymphocytes % 26.1 %; Mean Corpuscular HGB Conc 32.3 g/dL (30.0-36.0); Mean Corpuscular Hemoglobin 29.8 pg (28.0-34.0); Mean Corpuscular Volume 92.3 fl (81-99); Mean Platelet Volume 10.7 fL (7.4-10.4); Monocytes # 0.8 10^3/uL (0.2-0.9); Monocytes % 8.8 %; Neutrophils # 5.62 10^3/uL (1.8-7.7); Neutrophils % 64.1 %; Nucleated Red Blood Cells % 0 %; Platelet Count 391 10^3/cmm (130-400); Red Blood Count 5.17 10^6/uL (4.1-5.3); Red Cell Distribution Width 14.6 % (12.1-15.1); White Blood Count 8.8 10^3/uL (4.0-10.0)
[2022-09-13 17:23] LABS: Alanine Aminotransferase 41 U/L (0-33); Albumin Level 4.8 g/dL (3.5-5.2); Alkaline Phosphatase 94 U/L (35-105); Anion Gap 22.4 (5-19); Aspartate Amino Transferase 30 U/L (0-32); Blood Urea Nitrogen 13 mg/dL (6-20); Calcium 10.1 mg/dL (8.5-10.5); Carbon Dioxide 27 mmol/L (22-29); Chloride 93 mmol/L (98-107); Globulin 3.8 g/dL (1.3-4.6); Glomerular Filtration Rate 53.7 mL/min (90-130); Glucose 108 mg/dL (65-115); Lipase 63 U/L (13-60); Osmolality Calculated 289 mOsm/kg (285-295); Potassium 3.4 mmol/L (3.5-5.1); Sodium 139 mmol/L (136-145); Total Bilirubin 0.2 mg/dL (0.15-1.2); Total Protein 8.6 g/dL (6.6-8.7)
[2022-09-13 17:43] LABS: Urine Color Yellow (Yellow)
[2022-09-13 17:44] LABS: Add Urine Microscopic? YES; Bilirubin Urine Neg (Negative); Blood Urine Neg (Negative); Glucose Urine UA 4+ (Normal); Ketones Urine Negative (Negative); Leukocyte Esterase Urine 2+ (Negative); Nitrate Urine Negative (Negative); Protein Urine Neg (Negative); RBC Urine 0-4 /hpf (0-2); Specific Gravity, Urine 1.015 (1.005-1.030); Urine Appearance SL Hazy (CLEAR); Urobilinogen Urine Norm (Negative); WBC Urine 15-25 /hpf (0-5); pH Urine 5 (5-7)
[2022-09-13 17:45] LABS: Bacteria Urine 1+ /hpf; Trichomonas Urine TRACE /hpf
[2022-09-13 17:46] LABS: Add Urine Culture? Yes
--- NOTE | 2022-09-13 18:20 | ED_ITS ---
HPI - Abdominal Pain General: Chief Complaint: Abdominal Pain Stated Complaint: ANXIETY/ ABDOMINAL PAIN Time Seen by Provider: 09/13/22 18:20 History of Present Illness: 47-year-old female comes in today with pelvic discomfort and pain. Patient reports similar symptoms 3 weeks ago, and was seen in the emergency department at that time. Review of the record noted patient has been seen 2 times for the similar complaints once in June and then once in March. Each of those times patient was treated with Cipro for a urinary tract infection. Patient also reports some diarrhea that is black but has been using Pepto-Bismol. Patient has a history of asthma, anxiety, depression, diabetes mellitus, COPD, anemia, cannabis use, borderline personality, GERD, and substance abuse. Associated Symptoms: Denies fever(s) Review of Systems General: Reports: 10 or more systems reviewed and unremarkable except in HPI and below Const: Denies: fever(s) or body aches ENMT: Denies: throat pain Card: Denies: chest pain Resp: Denies: dyspnea GI: Reports: abdominal pain : Reports: difficulty voiding and vaginal discharge Musc: Reports: back pain Skin/Breast: Denies: rash PFS ED PFSH: Medical History Chronic constipation Controlled with medications followed by her primary care provider COPD (chronic obstructive pulmonary disease) Diagnosed in 2013 and is controlled with medication COPD (chronic obstructive pulmonary disease) Depression Diagnosed at the age of 23 and has been on medication since then. She follows up with Dr. Benitez a psychiatrist and as well as therapy in [place]. She currently denies suicidal/homicidal ideation. Essential (primary) hypertension Diagnosed in 2018 and she follows up with Dr. Anderson and cardiology. Gastro-esophageal reflux disease without esophagitis Controlled with medication. H/O deep venous thrombosis Reports having a DVT in 2019 and states her warfarin dose was increased after this. She follows up with Dr. Crespo -had second DVT in 11/2019 and was taken off warfarin and is now on eliquis Obstructive sleep apnea Personal history of pulmonary embolism (~2012) States that she had a PE in 2012 and has been on warfarin since then. TIA (transient ischemic attack) Reports having had a TIA in 2019. Denies any neurological deficits. Followed by her primary care provider. Surgical History Status post conization of cervix Office LEEP procedure performed by Dr. Zelaya in 2006 for MARY-2 on Pap smear. 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 Status post knee surgery 2018-open knee surgery for torn ACL Status post left breast lumpectomy Patient reports having had 3 lumpectomies of her left breast in 1999, 2007 and 2009 for benign lesions. Family History Mother Hypertension Heart disease Grandmother Hypertension maternal and paternal Breast cancer maternal, diagnosed at age 43 Colon cancer maternal, diagnosed at age 63 Father Hypertension Grandfather Hypertension maternal and paternal Heart disease maternal Denies family history of Ovarian cancer Diabetes Uterine cancer Thyroid condition Stroke Social History Smoking and tobacco status: never smoked Second hand smoke exposure: Yes Alcohol intake: current Other details last substance use: last used 2013 per patient Lives independently: Yes Housing: House Marital status: Single Number of children: 0 service: No Current occupational status: disabled Current gender identity: Female Special tereza needs: No Agree to transfusion: Yes Physical Exam Const: COMMON NORMALS: alert HENMT: COMMON NORMALS: normocephalic HEAD & SCALP: normocephalic Neck/C-Spine: COMMON NORMALS: full ROM Resp: COMMON NORMALS: normal respiratory effort and clear to auscultation bilaterally AUSCULTATION: clear to auscultation bilaterally Cardio: COMMON NORMALS: regular rate RATE: regular rate GI: COMMON NORMALS: Soft to palpation PALPATION: Yes Soft to palpation and Yes Tenderness to palpation present (GI) (Suprapubic) : COMMON NORMALS: Yes no CVA tenderness BLADDER/KIDNEY EXAM: Yes no CVA tenderness Back/Pelvis: COMMON NORMALS: no CVA tenderness Neuro: SENSORIUM/ORIENTATION: Yes alert Skin: COMMON NORMALS: no rashes or lesions noted GENERAL SKIN EXAM: no rashes or lesions noted Course Vital Signs: Vital signs: Vital Signs Temperature 98.1 F 09/13/22 16:21 Pulse Rate 107 H 09/13/22 16:21 Respiratory Rate 16 09/13/22 16:21 Blood Pressure 157/94 09/13/22 16:21 Pulse Oximetry 97 09/13/22 16:21 Oxygen Delivery Me thod 09/13/22 16:21 MDM - Abdominal Pain Medical Decision Making Patient comes in today with complaints of recurrent cystitis or urinary tract infection. On exam abdomen is soft with some tenderness in suprapubic area. No CVA tenderness. Lungs are clear to auscultation. Vital signs are normal except for some mild elevation in pulse at 106. Differential diagnosis includes UTI, STI, vaginitis, colitis, gastroenteritis. Laboratory values were unremarkable except for urinalysis showing increased amount of white blood cells and trichomonas. Reviewed exam with patient with recommendations for treatment with increasing fluid intake, doxycycline, 500 mg of Rocephin, and Flagyl. Gonorrhea and committee a testing was added to labs. Patient was recommended to follow-up with primary care in 1 week for recheck Patient was also informed to have sexual partners checked for infection. Patient reported understanding agreed to plan. Lab Data 09/13/22 16:33 09/13/22 16:33 Labs/Radiology: Laboratory Results WBC 8.8 10^3/uL (4.0-10.0) 09/13/22 16:33 RBC 5.17 10^6/uL (4.1-5.3) 09/13/22 16:33 Hgb 15.4 g/dL (11.5-15.3) H 09/13/22 16:33 Hct 47.7 % (37.0-47.0) H 09/13/22 16:33 MCV 92.3 fl (81-99) 09/13/22 16:33 MCH 29.8 pg (28.0-34.0) 09/13/22 16:33 MCHC 32.3 g/dL (30.0-36.0) 09/13/22 16:33 RDW 14.6 % (12.1-15.1) 09/13/22 16:33 Plt Count 391 10^3/cmm (130-400) 09/13/22 16:33 MPV 10.7 fL (7.4-10.4) H 09/13/22 16:33 Neut % (Auto) 64.1 % 09/13/22 16:33 Lymph % (Auto) 26.1 % 09/13/22 16:33 Stevens % (Auto) 8.8 % 09/13/22 16:33 Eos % (Auto) 0.2 % 09/13/22 16:33 Baso % (Auto) 0.3 % 09/13/22 16:33 Neut # (Auto) 5.62 10^3/uL (1.8-7.7) 09/13/22 16:33 Lymph # (Auto) 2.3 10^3/uL (0.8-4.8) 09/13/22 16:33 Stevens # (Auto) 0.8 10^3/uL (0.2-0.9) 09/13/22 16:33 Eos # (Auto) 0.0 10^3/uL (0.0-0.8) 09/13/22 16:33 Baso # (Auto) 0.0 10^3/uL (0.0-0.1) 09/13/22 16:33 Nucleated RBC % (auto) 0 % 09/13/22 16: Nucleated RBCs # 0.0 /100WBC 09/13/22 16:33 Sodium 139 mmol/L (136-145) 09/13/22 16:33 Potassium 3.4 mmol/L (3.5-5.1) L 09/13/22 16:33 Chloride 93 mmol/L (98-107) L 09/13/22 16:33 Carbon Dioxide 27 mmol/L (22-29) 09/13/22 16:33 Anion Gap 22.4 (5-19) H 09/13/22 16:33 BUN 13 mg/dL (6-20) 09/13/22 16:33 Creatinine 1.1 mg/dL (0.5-0.9) H 09/13/22 16:33 GFR Calculation 53.7 mL/min (90-130) L 09/13/22 16:33 Glucose 108 mg/dL (65-115) 09/13/22 16:33 Calculated Osmolality 289 mOsm/kg (285-295) 09/13/22 16:33 Calcium 10.1 mg/dL (8.5-10.5) 09/13/22 16:33 Total Bilirubin 0.2 mg/dL (0.15-1.2) 09/13/22 16:33 AST 30 U/L (0-32) 09/13/22 16:33 ALT 41 U/L (0-33) H 09/13/22 16:33 Alkaline Phosphatase 94 U/L (35-105) 09/13/22 16:33 Total Protein 8.6 g/dL (6.6-8.7) 09/13/22 16:33 Albumin 4.8 g/dL (3.5-5.2) 09/13/22 16:33 Globulin 3.8 g/dL (1.3-4.6) 09/13/22 16:33 Lipase 63 U/L (13-60) H 09/13/22 16:33 Urine Color Yellow (Yellow) 09/13/22 16:28 Urine Appearance Sl hazy (CLEAR) A 09/13/22 16:28 Urine pH 5 (5-7) 09/13/22 16:28 Ur Specific [place] 1.015 (1.005-1.030) 09/13/22 16:28 Urine Protein Neg (Negative) 09/13/22 16:28 Urine Glucose (UA) 4+ (Normal) H 09/13/22 16:28 Urine Ketones Negative (Negative) 09/13/22 16:28 Urine Blood Neg (Negative) 09/13/22 16:28 Urine Nitrate Negative (Negative) 09/13/22 16:28 Urine Bilirubin Neg (Negative) 09/13/22 16:28 Urine Urobilinogen Norm mg/dL (Negative) 09/13/22 16:28 Ur Leukocyte Esterase 2+ (Negative) H 09/13/22 16:28 Urine RBC 0-4 /hpf (0-2) H 09/13/22 16:28 Urine WBC 15-25 /hpf (0-5) H 09/13/22 16:28 Ur Squamous Epith Cells 5-10 /hpf (0-5) H 09/13/22 16:28 Amorphous Sediment Not Reportable 09/13/22 16:28 Urine Bacteria 1+ /hpf (NONE) H 09/13/22 16:28 Urine Trichomonas Trace /hpf H 09/13/22 16:28 Discharge Plan Discharge Patient Disposition: Home Clinical Impression: Vaginitis Qualifiers: Chronicity: acute Qualified Code(s): N76.0 - Acute vaginitis Condition: Stable Prescriptions: New doxycycline monohydrate 100 mg capsule 100 mg PO BID 7 Days Qty: 14 0RF metronidazole 500 mg tablet 500 mg PO Q8H 7 Days Qty: 21 0RF ondansetron 4 mg tablet,disintegrating 4 mg PO Q8H PRN (Reason: nausea and vomiting) Qty: 7 0RF hydrocodone-acetaminophen 5-325 mg tablet 1 tab PO Q8H PRN (Reason: pain (scale score 7-10)) Qty: 7 0RF No Action albuterol sulfate [Ventolin HFA] 90 mcg/actuation HFA aerosol inhaler 2 puff INHALATION QID PRN (Reason: Shortness Of Breath) quetiapine 300 mg tablet 300 mg PO BEDTIME metformin 500 mg tablet 1,000 mg PO BID metoprolol tartrate 50 mg tablet 100 mg PO BID oxcarbazepine 300 mg tablet 300 mg PO BID Qty: 30 0RF promethazine 25 mg tablet 25 mg PO TID PRN (Reason: nausea and vomiting) Qty: 20 0RF budesonide-formoterol [Symbicort] 160-4.5 mcg/actuation HFA aerosol inhaler 1 puff inhalation BID Qty: 10.2 0RF meclizine 25 mg tablet See Rx Instructions PO TID PRN (Reason: dizziness) Qty: 20 0RF Rx Instructions: 1/2 to 1 tablet orally three times daily PRN; Will cause drowsiness fexofenadine-pseudoephedrine [Ivette-D 12 Hour] 60-120 mg tablet extended release 12 hr 1 tab PO Q12H PRN (Reason: allergy symptoms) Qty: 20 0RF promethazine 25 mg tablet 25 mg PO Q6H PRN (Reason: nausea and vomiting) Qty: 20 0RF Ozempic 0.25 mg or 0.5 mg(2 mg/1.5 mL) pen injector See Rx Instructions .ROUTE .COMPLEX Qty: 1.5 3RF Dose Instruction: inject 0.5mg SUBCUTANEOUSLY ONCE WEEKLY Rx Instructions: inject 0.5mg SUBCUTANEOUSLY ONCE WEEKLY Jardiance 25 mg tablet See Rx Instructions .ROUTE .COMPLEX Qty: 30 2RF Dose Instruction: TAKE ONE TABLET BY MOUTH ONCE a DAY Rx Instructions: TAKE ONE TABLET BY MOUTH ONCE a DAY glipizide 5 mg tablet 5 mg PO BID Qty: 60 2RF ferrous sulfate 325 mg (65 mg iron) tablet 325 mg PO QAM Qty: 30 2RF potassium chloride 20 mEq tablet,ER particles/crystals See Rx Instructions .ROUTE .COMPLEX Qty: 30 0RF Dose Instruction: TAKE ONE TABLET BY MOUTH ONCE a DAY with food Rx Instructions: TAKE ONE TABLET BY MOUTH ONCE a DAY with food alprazolam [Xanax] 2 mg Tablet 2 mg PO TID PRN (Reason: Anxiety) desvenlafaxine 100 mg Tablet Extended Release 24 Hr 100 mg PO DAILY isosorbide dinitrate 20 mg tablet 20 mg PO BID desipramine 100 mg tablet 100 mg PO DAILY cholecalciferol (vitamin D3) 1,250 mcg (50,000 unit) capsule 1,250 mcg PO Q7D Rx Instructions: on tues Eliquis 5 mg tablet 5 mg PO BID aripiprazole 5 mg tablet 5 mg PO BEDTIME omeprazole 40 mg Capsule,Delayed Release(Dr/Ec) 40 mg PO BEDTIME nystatin 100,000 unit/gram cream 1 applic TOPICAL BID PRN (Reason: Rash) Alive Women's Gummy Vitamin 200 mcg- 37.5 mg Tablet,Chewable 1 tab PO DAILY chlorthalidone 25 mg tablet 25 mg PO DAILY ondansetron 4 mg tablet,disintegrating 4 mg PO Q6H PRN (Reason: nausea and vomiting) Qty: 14 0RF Cipro 500 mg tablet 500 mg PO BID Qty: 14 0RF hydrocodone-acetaminophen 5-325 mg tablet 1 tab PO Q6H PRN (Reason: pain) Qty: 14 0RF Cipro 500 mg tablet 500 mg PO Q12H Qty: 10 0RF ergocalciferol (vitamin D2) 1,250 mcg (50,000 unit) capsule 1,250 mcg PO Q7D Discharge Orders: Discharge ED (Routine); Ordered 09/13/22 Ordered By: Villa Encinas Referrals: Pham Jackman MD [Primary Care Provider] - Patient Instructions: Trichomoniasis (ED) Activity Restrictions/Additional Instructions: Home and rest. Drink plenty of water and fluids. Take antibiotics as directed. Follow-up with primary care in 1 week for recheck. Any sexual partners need to be evaluated for signs of infection and treatment. Return to ER for new concerns or worsening symptoms such as fever greater than 100.4, inability to hold fluids down, or uncontrolled pain. Coding Level of Care Code ED Equipment Associate for Marci Helms
[2022-09-13] MEDS: doxycycline 100 mg Tablet PO (18:41)
[2022-09-13] MEDS: cefTRIAXone 500 MG in water for injection-sterile 1 ML IM (18:41)
[2022-09-13] MEDS: ondansetron 4 MG Tablet PO (18:41)
[2022-09-13] MEDS: metroNIDAZOLE 500 MG Tablet PO (18:55)
[2022-09-13] MEDS: HYDROcodone-acetaminophen 5-325 mg Tablet 1 TAB PO (18:55)
== END 2022-09-13 18:56 | disposition home or self-care (01) ==
PROVIDERS: Physician Assistant; Emergency Provider Nurse Practitioner Family; PCP Family Medicine
DX: N76.0 Acute vaginitis (principal); Z79.02 Long term (current) use of antithrombotics/antiplatelets; Z79.84 Long term (current) use of oral hypoglycemic drugs; Z77.22 Contact with and (suspected) exposure to environmental tobacco smoke (acute) (chronic); J44.9 Chronic obstructive pulmonary disease, unspecified; I10 Essential (primary) hypertension; Z86.73 Personal history of transient ischemic attack (TIA), and cerebral infarction without residual deficits
CPT/HCPCS: 36415; 80053; 81001; 83690; 85025; 87086; 87491; 87591; 96372; 99284; J0696; Q0162

== ENCOUNTER 2022-09-17 06:56 | Emergency (ER) | payer MEDICARE, MEDICAID, SELFPAY ==
[2022-09-17 06:59] VITALS: BP 108/84; PULSE 104; RESP 14; TEMP 36.4; O2SAT 97; BMI 45.4
[2022-09-17] MEDS: ondansetron 2 mg/ML SDV 2 mL 4 MG IVP (07:22)
[2022-09-17] MEDS: sodium chloride 0.9% 1,000 ML 999 ML IV (07:22)
--- NOTE | 2022-09-17 07:38 | ED_ITS ---
HPI - Nausea/Vomiting/Diarrhea General: Chief complaint: Nausea/Vomiting/Diarrhea Stated complaint: ABD PAIN; N/V Time Seen by Provider: 09/17/22 07:01 Source: patient Mode of arrival: ambulatory History of Present Illness: 47-year-old female was seen earlier this week at that time had a vaginitis with positive trichomonas. She had nausea and vomiting since then she has had dark stool which she has used Pepto-Bismol in the past. She does complain of dysuria. She was discharged home with prophylactic treatment for PID with doxycycline and metronidazole and was given ceftriaxone here. Looking through her chart she has had several cultures in the past that showed an E. coli ESBL. The most recent urine culture from her ER visit showed vaginal contamination multiple jada and no identifiable bacteria. MD elicited complaint: nausea, vomiting and diarrhea Onset (ago): week(s) (3) Description of vomiting: watery and bilious Description of diarrhea: semi-solid and black tarry Associated nausea: Yes Location of pain: RLQ Pain consistency: constant Severity: moderate Quality: cramping Exacerbating factors: none Relieving factors: none Associated symtoms: Reports bloating, dysuria, anorexia, nausea and weakness; Denies altered mental status, anxiety, change in vision, chest pain, cough, diaphoresis, decreased urine output, dizziness, epistaxis, fatigue, fecal incontinence, fevers/chills, headache(s), malaise, myalgias, numbness, palpitations, rash, short of breath, syncope, tenesmus or tinnitus Review of Systems Const: Denies: fever(s), chills, fatigue, malaise or diaphoresis Eyes: Denies: change in vision ENMT: Denies: tinnitus or epistaxis Card: Denies: chest pain, palpitations or syncope Resp: Denies: dyspnea, productive cough or non-productive cough GI: Reports: abdominal pain, nausea, vomiting, diarrhea, bloating, GI cramping and melena; Denies: fecal incontinence : Reports: dysuria, urinary frequency and urinary urgency; Denies: flank pain Skin/Breast: Denies: rash or pruritus Neuro: Denies: headache(s) or dizziness Psych: Denies: anxiety PFSH ED PFSH: Medical History Chronic constipation Controlled with medications followed by her primary care provider COPD (chronic obstructive pulmonary disease) Diagnosed in 2013 and is controlled with medication COPD (chronic obstructive pulmonary disease) Depression Diagnosed at the age of 23 and has been on medication since then. She follows up with Dr. Benitez a psychiatrist and as well as therapy in [place]. She currently denies suicidal/homicidal ideation. Essential (primary) hypertension Diagnosed in 2019 and she follows up with Dr. Anderson and cardiology. Gastro-esophageal reflux disease without esophagitis Controlled with medication. H/O deep venous thrombosis Reports having a DVT in 2019 and states her warfarin dose was increased after this. She follows up with Dr. Crespo -had second DVT in 11/2019 and was taken off warfarin and is now on eliquis Obstructive sleep apnea Personal history of pulmonary embolism (~2012) States that she had a PE in 2012 and has been on warfarin since then. TIA (transient ischemic attack) Reports having had a TIA in 2019. Denies any neurological deficits. Followed by her primary care provider. Surgical History Status post conization of cervix Office LEEP procedure performed by Dr. Zelaya in 2005 for MARY-2 on Pap smear. 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 Status post knee surgery 2018-open knee surgery for torn ACL Status post left breast lumpectomy Patient reports having had 3 lumpectomies of her left breast in 1999, 2007 and 2009 for benign lesions. Family History Mother Hypertension Heart disease Grandmother Hypertension maternal and paternal Breast cancer maternal, diagnosed at age 43 Colon cancer maternal, diagnosed at age 63 Father Hypertension Grandfather Hypertension maternal and paternal Heart disease maternal Denies family history of Ovarian cancer Diabetes Uterine cancer Thyroid condition Stroke Social History Smoking and tobacco status: never smoked Second hand smoke exposure: Yes Alcohol intake: current Other details last substance use: last used 2013 per patient Lives independently: Yes Housing: House Marital status: Single Number of children: 0 service: No Current occupational status: disabled Current gender identity: Female Special tereza needs: No Agree to transfusion: Yes Physical Exam Const: EXAM LIMITATIONS: no altered mental status GENERAL APPEARANCE: cooperative and comfortable ORIENTATION/CONSCIOUSNESS: Yes awake, Yes oriented to person, Yes oriented to place and Yes oriented to time HENMT: COMMON NORMALS: normocephalic, atraumatic and hearing grossly normal bilaterally HEAD & SCALP: normocephalic and atraumatic Resp: COMMON NORMALS: normal respiratory effort, No retractions, No use of accessory muscles and clear to auscultation bilaterally AUSCULTATION: clear to auscultation bilaterally Cardio: COMMON NORMALS: regular rate, regular rhythm and No murmurs present (Cardio) RATE: regular rate RHYTHM: regular rhythm GI: COMMON NORMALS: No hepatosplenomegaly present AUSCULTATION: Yes normoactive bowel sounds PALPATION: Yes Tenderness to palpation present (GI) Details: RLQ, No Guarding due to palpation present (GI) and Yes No hepatosplenomegaly present Extremity: COMMON NORMALS: normal to inspection, capillary refill normal, no clubbing, cyanosis or edema, no calf tenderness and no pedal edema Neuro: SENSORIUM/ORIENTATION: Yes oriented to person, Yes oriented to place and Yes oriented to time Skin: COMMON NORMALS: no rashes or lesions noted GENERAL SKIN EXAM: no rashes or lesions noted Course Vital Signs: Vital signs: Vital Signs Temperature 97.6 F 09/17/22 06:59 Pulse Rate 104 H 09/17/22 06:59 Respiratory Rate 14 09/17/22 06:59 Blood Pressure 108/84 09/17/22 06:59 Pulse Oximetry 97 09/17/22 06:59 Oxygen Delivery Me thod 09/17/22 06:59 MDM - Nausea/Vomiting/Diarrhea Medical Decision Making CT negative. No sign of infection no pelvic abnormalities no masses no colitis no appendicitis. UA negative for cystitis. Reviewed the cultures on her previous visit she had been given Cipro and doxycycline metronidazole has prophylactic for PID. She did have trichomonas in her urine but today GC and chlamydia were negative she can stop the doxycycline and Cipro this may be contributing abdominal discomfort. Otherwise clear liquid diet for the next couple of days and advance as tolerated can use antiemetics as needed. Also g ave her potassium supplement to take for the next 5 days follow-up with her primary care doctor next week to recheck potassium return if she has any further problems. Medical Records I reviewed the patient's medical records. Lab Data I reviewed the patient's lab results. 09/17/22 07:29 09/17/22 07:29 Radiology Impressions Abdomen/Pelvis CT 09/17/22 07:49 IMPRESSION: No acute intra-abdominal or intrapelvic pathology. Laboratory Results WBC 7.2 10^3/uL (4.0-10.0) 09/17/22 07:29 RBC 4.57 10^6/uL (4.1-5.3) 09/17/22 07:29 Hgb 13.6 g/dL (11.5-15.3) 09/17/22 07:29 Hct 42.3 % (37.0-47.0) 09/17/22 07: MCV 92.6 fl (81-99) 09/17/22 07: MCH 29.8 pg (28.0-34.0) 09/17/22 07: MCHC 32.2 g/dL (30.0-36.0) 09/17/22 07: RDW 14.7 % (12.1-15.1) 09/17/22 07:29 Plt Count 301 10^3/cmm (130-400) 09/17/22 07:29 MPV 10.9 fL (7.4-10.4) H 09/17/22 07:29 Neut % (Auto) 60.7 % 09/17/22 07: Lymph % (Auto) 30.0 % 09/17/22 07:29 [place] % (Auto) 8.0 % 09/17/22 07:29 Eos % (Auto) 0.6 % 09/17/22 07: Baso % (Auto) 0.3 % 09/17/22 07:29 Neut # (Auto) 4.38 10^3/uL (1.8-7.7) 09/17/22 07:29 Lymph # (Auto) 2.2 10^3/uL (0.8-4.8) 09/17/22 07:29 [place] # (Auto) 0.6 10^3/uL (0.2-0.9) 09/17/22 07:29 Eos # (Auto) 0.0 10^3/uL (0.0-0.8) 09/17/22 07:29 Baso # (Auto) 0.0 10^3/uL (0.0-0.1) 09/17/22 07:29 Nucleated RBC % (auto) 0 % 09/17/22 07: Nucleated RBCs # 0.0 /100WBC 09/17/22 07:29 Sodium 136 mmol/L (136-145) 09/17/22 07:29 Potassium 3.0 mmol/L (3.5-5.1) L 09/17/22 07:29 Chloride 95 mmol/L (98-107) L 09/17/22 07:29 Carbon Dioxide 23 mmol/L (22-29) 09/17/22 07:29 Anion Gap 21.0 (5-19) H 09/17/22 07:29 BUN 15 mg/dL (6-20) 09/17/22 07: Creatinine 1.2 mg/dL (0.5-0.9) H 09/17/22 07:29 GFR Calculation 48.6 mL/min (90-130) L 09/17/22 07: Glucose 114 mg/dL (65-115) 09/17/22 07:29 Calculated Osmolality 284 mOsm/kg (285-295) L 09/17/22 07:29 Calcium 9.1 mg/dL (8.5-10.5) 09/17/22 07: Magnesium 1.5 mg/dL (1.7-2.3) L 09/17/22 07:29 Total Bilirubin 0.2 mg/dL (0.15-1.2) 09/17/22 07:29 AST 22 U/L (0-32) 09/17/22 07: ALT 32 U/L (0-33) 09/17/22 07:29 Alkaline Phosphatase 69 U/L (35-105) 09/17/22 07:29 Total Protein 7.0 g/dL (6.6-8.7) 09/17/22 07: Albumin 3.8 g/dL (3.5-5.2) 09/17/22 07: Globulin 3.2 g/dL (1.3-4.6) 09/17/22 07: Lipase 53 U/L (13-60) 09/17/22 07:29 HCG, Qual Negative (Negative) 09/17/22 07:29 Urine Color Yellow (Yellow) 09/17/22 08:03 Urine Appearance Clear (CLEAR) 09/17/22 08:03 Urine pH 5 (5-7) 09/17/22 08:03 Ur Specific [place] 1.020 (1.005-1.030) 09/17/22 08:03 Urine Protein Neg (Negative) 09/17/22 08:03 Urine Glucose (UA) 4+ (Normal) H 09/17/22 08:03 Urine Ketones 1+ (Negative) H 09/17/22 08:03 Urine Blood Neg (Negative) 09/17/22 08:03 Urine Nitrate Negative (Negative) 09/17/22 08:03 Urine Bilirubin Neg (Negative) 09/17/22 08:03 Urine Urobilinogen Norm mg/dL (Negative) 09/17/22 08:03 Ur Leukocyte Esterase Trace (Negative) H 09/17/22 08:03 Urine RBC None /hpf (0-2) 09/17/22 08:03 Urine WBC 0-4 /hpf (0-5) H 09/17/22 08:03 Ur Squamous Epith Cells None /hpf (0-5) 09/17/22 08:03 Amorphous Sediment Not Reportable 09/17/22 08:03 Urine Bacteria Trace /hpf (NONE) 09/17/22 08:03 Discharge Plan Discharge Patient Disposition: Home Clinical Impression: Abdominal pain, Hypokalemia Condition: Stable Prescriptions: New ondansetron HCl 4 mg tablet 4 mg PO Q6H PRN (Reason: nausea and vomiting) Qty: 20 0RF potassium chloride 20 mEq tablet,ER particles/crystals 20 meq PO BID Qty: 10 0RF Discontinued ciprofloxacin HCl [Cipro] 500 mg tablet 500 mg PO BID Qty: 14 0RF ciprofloxacin HCl [Cipro] 500 mg tablet 500 mg PO Q12H Qty: 10 0RF doxycycline monohydrate 100 mg capsule 100 mg PO BID 7 Days Qty: 14 0RF No Action albuterol sulfate [Ventolin HFA] 90 mcg/actuation HFA aerosol inhaler 2 puff INHALATION QID PRN (Reason: Shortness Of Breath) quetiapine 300 mg tablet 300 mg PO BEDTIME metformin 500 mg tablet 1,000 mg PO BID metoprolol tartrate 50 mg tablet 100 mg PO BID oxcarbazepine 300 mg tablet 300 mg PO BID Qty: 30 0RF promethazine 25 mg tablet 25 mg PO TID PRN (Reason: nausea and vomiting) Qty: 20 0RF budesonide-formoterol [Symbicort] 160-4.5 mcg/actuation HFA aerosol inhaler 1 puff inhalation BID Qty: 10.2 0RF meclizine 25 mg tablet See Rx Instructions PO TID PRN (Reason: dizziness) Qty: 20 0RF Rx Instructions: 1/2 to 1 tablet orally three times daily PRN; Will cause drowsiness fexofenadine-pseudoephedrine [Ivette-D 12 Hour] 60-120 mg tablet extended release 12 hr 1 tab PO Q12H PRN (Reason: allergy symptoms) Qty: 20 0RF promethazine 25 mg tablet 25 mg PO Q6H PRN (Reason: nausea and vomiting) Qty: 20 0RF Ozempic 0.25 mg or 0.5 mg(2 mg/1.5 mL) pen injector See Rx Instructions .ROUTE .COMPLEX Qty: 1.5 3RF Dose Instruction: inject 0.5mg SUBCUTANEOUSLY ONCE WEEKLY Rx Instructions: inject 0.5mg SUBCUTANEOUSLY ONCE WEEKLY Jardiance 25 mg tablet See Rx Instructions .ROUTE .COMPLEX Qty: 30 2RF Dose Instruction: TAKE ONE TABLET BY MOUTH ONCE a DAY Rx Instructions: TAKE ONE TABLET BY MOUTH ONCE a DAY glipizide 5 mg tablet 5 mg PO BID Qty: 60 2RF ferrous sulfate 325 mg (65 mg iron) tablet 325 mg PO QAM Qty: 30 2RF potassium chloride 20 mEq tablet,ER particles/crystals See Rx Instructions .ROUTE .COMPLEX Qty: 30 0RF Dose Instruction: TAKE ONE TABLET BY MOUTH ONCE a DAY with food Rx Instructions: TAKE ONE TABLET BY MOUTH ONCE a DAY with food alprazolam [Xanax] 2 mg Tablet 2 mg PO TID PRN (Reason: Anxiety) desvenlafaxine 100 mg Tablet Extended Release 24 Hr 100 mg PO DAILY isosorbide dinitrate 20 mg tablet 20 mg PO BID desipramine 100 mg tablet 100 mg PO DAILY cholecalciferol (vitamin D3) 1,250 mcg (50,000 unit) capsule 1,250 mcg PO Q7D Rx Instructions: on Eliquis 5 mg tablet 5 mg PO BID aripiprazole 5 mg tablet 5 mg PO BEDTIME omeprazole 40 mg Capsule,Delayed Release(Dr/Ec) 40 mg PO BEDTIME nystatin 100,000 unit/gram cream 1 applic TOPICAL BID PRN (Reason: Rash) Alive Women's Gummy Vitamin 200 mcg- 37.5 mg Tablet,Chewable 1 tab PO DAILY chlorthalidone 25 mg tablet 25 mg PO DAILY ondansetron 4 mg tablet,disintegrating 4 mg PO Q6H PRN (Reason: nausea and vomiting) Qty: 14 0RF hydrocodone-acetaminophen 5-325 mg tablet 1 tab PO Q6H PRN (Reason: pain) Qty: 14 0RF metronidazole 500 mg tablet 500 mg PO Q8H 7 Days Qty: 21 0RF ondansetron 4 mg tablet,disintegrating 4 mg PO Q8H PRN (Reason: nausea and vomiting) Qty: 7 0RF hydrocodone-acetaminophen 5-325 mg tablet 1 tab PO Q8H PRN (Reason: pain (scale score 7-10)) Qty: 7 0RF ergocalciferol (vitamin D2) 1,250 mcg (50,000 unit) capsule 1,250 mcg PO Q7D Discharge Orders: Discharge ED (Routine); Ordered 09/17/22 Ordered By: Waldemar Augustine Referrals: Pham Jackman MD [Primary Care Provider] - Discharge Diet: Clear Liquid Discharge Activity: Increase activity as tolerated Patient Instructions: Abdominal Pain (ED), Opioid Safety, Pain Management Activity Restrictions/Additional Instructions: You were seen today for abdominal pain. CT was negative for any acute pathology your white count was normal. You did have some mild hypokalemia we will give you a potassium supplement to take for the next 3 days you should recheck your potassium with your primary care doctor next week return to the emergency you have any worsening symptoms. Additionally you can stop the ciprofloxacin and doxycycline you should complete the course of metronidazole. Coding Level of Care Code ED Candy Dipper for Marci Helms
[2022-09-17 07:42] LABS: Basophils % 0.3 %; Eosinophils % 0.6 %; Hematocrit 42.3 % (37.0-47.0); Hemoglobin 13.6 g/dL (11.5-15.3); Lymphocytes # 2.2 10^3/uL (0.8-4.8); Mean Corpuscular HGB Conc 32.2 g/dL (30.0-36.0); Mean Corpuscular Hemoglobin 29.8 pg (28.0-34.0); Mean Corpuscular Volume 92.6 fl (81-99); Mean Platelet Volume 10.9 fL (7.4-10.4); Monocytes # 0.6 10^3/uL (0.2-0.9); Neutrophils # 4.38 10^3/uL (1.8-7.7); Neutrophils % 60.7 %; Nucleated Red Blood Cells % 0 %; Platelet Count 301 10^3/cmm (130-400); Red Blood Count 4.57 10^6/uL (4.1-5.3); Red Cell Distribution Width 14.7 % (12.1-15.1); White Blood Count 7.2 10^3/uL (4.0-10.0)
--- NOTE | 2022-09-17 07:49 | CTR_ITS ---
PROCEDURE INFORMATION: Exam: CT Abdomen And Pelvis Without Contrast Exam date and time: 09/17/2022 8:16 AM Age: 47 years old Clinical indication: Abdominal pain; Localized; Lower TECHNIQUE: Imaging protocol: Computed tomography of the abdomen and pelvis without contrast. Radiation optimization: All CT scans at this facility use at least one of these dose optimization techniques: automated exposure control; mA and/or kV adjustment per patient size (includes targeted exams where dose is matched to clinical indication); or iterative reconstruction. REPORTING DATA: Count of CT and Cardiac NM exams in prior 12 months: This patient has received 3 known CTs and 0 known cardiac nuclear medicine studies in the 12 months prior to the current study. COMPARISON: CT abdomen pelvis wo con [id number] 07/02/2022 2:57 PM RADIATION DOSE METRICS: Total DLP (mGy-cm): 1262.94 FINDINGS: Liver: The liver is diffusely decreased in density, compatible with hepatic steatosis. No discrete mass lesion identified. Gallbladder and bile ducts: Normal. No calcified stones. No ductal dilation. Pancreas: Normal. No ductal dilation. Spleen: Normal. No splenomegaly. Adrenal glands: Normal. No mass. Kidneys and ureters: There is a punctate nonobstructing stone in the right mid kidney. No hydronephrosis. Stomach and bowel: There is diverticulosis without evidence of diverticulitis. Appendix: No evidence of appendicitis. Intraperitoneal space: Unremarkable. No free air. No significant fluid collection. Vasculature: Unremarkable. No abdominal aortic aneurysm. Lymph nodes: Unremarkable. No enlarged lymph nodes. Urinary bladder: Unremarkable as visualized. Reproductive: Unchanged lobulated contour of the uterus, likely representing fibroids. An intrauterine device is in place. Bones/joints: Unremarkable. No acute fracture. Soft tissues: Unremarkable. CT/CT abdomen pelvis wo con [id number] IMPRESSION: No acute intra-abdominal or intrapelvic pathology.
[2022-09-17 08:03] LABS: Alanine Aminotransferase 32 U/L (0-33); Albumin Level 3.8 g/dL (3.5-5.2); Alkaline Phosphatase 69 U/L (35-105); Aspartate Amino Transferase 22 U/L (0-32); Blood Urea Nitrogen 15 mg/dL (6-20); Calcium 9.1 mg/dL (8.5-10.5); Carbon Dioxide 23 mmol/L (22-29); Chloride 95 mmol/L (98-107); Globulin 3.2 g/dL (1.3-4.6); Glomerular Filtration Rate 48.6 mL/min (90-130); Glucose 114 mg/dL (65-115); Lipase 53 U/L (13-60); Magnesium 1.5 mg/dL (1.7-2.3); Osmolality Calculated 284 mOsm/kg (285-295); Sodium 136 mmol/L (136-145); Total Bilirubin 0.2 mg/dL (0.15-1.2)
[2022-09-17 08:09] LABS: HCG, Serum Qual Negative (Negative)
[2022-09-17 08:28] LABS: Glucose Urine UA 4+ (Normal); Ketones Urine 1+ (Negative); Protein Urine Neg (Negative); Urine Appearance Clear (CLEAR); Urine Color Yellow (Yellow); pH Urine 5 (5-7)
[2022-09-17 08:29] LABS: Add Urine Microscopic? YES; Bilirubin Urine Neg (Negative); Blood Urine Neg (Negative); Leukocyte Esterase Urine Trace (Negative); Nitrate Urine Negative (Negative); Urobilinogen Urine Norm (Negative)
[2022-09-17 08:40] LABS: Add Urine Culture? No; Bacteria Urine TRACE /hpf; WBC Urine 0-4 /hpf (0-5)
== END 2022-09-17 09:30 | disposition home or self-care (01) ==
PROVIDERS: Emergency Provider Family Medicine; PCP Family Medicine
DX: R10.9 Unspecified abdominal pain (principal); E87.6 Hypokalemia; Z79.84 Long term (current) use of oral hypoglycemic drugs; Z79.01 Long term (current) use of anticoagulants; J44.9 Chronic obstructive pulmonary disease, unspecified; I10 Essential (primary) hypertension; Z86.73 Personal history of transient ischemic attack (TIA), and cerebral infarction without residual deficits; Z87.891 Personal history of nicotine dependence
CPT/HCPCS: 74176; 80053; 81001; 83690; 83735; 84703; 85025; 96361; 96374; 99285; J2405; J7030

== ENCOUNTER → 2022-11-09 17:39 | Outpatient (BNVA) | payer MEDICARE, MEDICAID, SELFPAY | PROVIDERS: PCP Family Medicine; Visit Provider Family Medicine | DX: Z00.00 Encounter for general adult medical examination without abnormal findings (principal); R39.9 Unspecified symptoms and signs involving the genitourinary system; Z01.419 Encounter for gynecological examination (general) (routine) without abnormal findings; Z11.3 Encounter for screening for infections with a predominantly sexual mode of transmission; I10 Essential (primary) hypertension; A64 Unspecified sexually transmitted disease | CPT/HCPCS: 80053; 81000; 85025; 86592; 86705; 86706; 86709; 86803; 87340; 87491; 87591; 87661; 88175 ==

== ENCOUNTER → 2022-11-30 08:32 | Outpatient (BNVA) | payer MEDICARE, MEDICAID, SELFPAY | PROVIDERS: PCP Family Medicine; Visit Provider Family Medicine | DX: E11.9 Type 2 diabetes mellitus without complications (principal); E78.5 Hyperlipidemia, unspecified; I10 Essential (primary) hypertension | CPT/HCPCS: 80061; 83036 ==

== ENCOUNTER 2022-12-23 10:02 | Emergency (ER) | payer MEDICARE, MEDICAID, SELFPAY ==
[2022-12-23 10:03] VITALS: BP 135/87; PULSE 89; RESP 18; TEMP 36.9; O2SAT 97; BMI 44.4
--- NOTE | 2022-12-23 10:31 | ED_ITS ---
HPI - Headache General: Chief Complaint: Headache Stated Complaint: headache Time Seen by Provider: 12/23/22 10:04 Source: patient Mode of arrival: EMS History of Present Illness: 47-year-old female presents emergency room with complaint of a right frontal headache that extends to the back of her head and into her neck. It began yesterday she has had problems with headaches in the past was worse this morning when she woke up. Tried taking some medications at home particular ibuprofen and Tylenol did not seem to help at all. She has had some numbness in her left arm and leg. Patient is on apixaban as well. Patient has previously been admitted a few weeks ago for the same type thing at [facility] they did MRI and other than studies did not find any thing she was ultimately discharged home. MD elicited complaint: headache Pertinent past history: migraines Onset (ago): hour(s) Location: left Severity: moderate Quality & Timing: throbbing Exacerbating factors: none Relieving factors: nothing Associated symptoms: Deny chest pain, confusion, cough, diaphoresis, eye pain, eye redness, fever(s), lightheadedness, loss of vision, malaise, nausea, neck st iffness, numbness, paresthesias, photophobia, pre-syncope, rash, seizures, short of breath, sound sensitivity, syncope, vomiting or weakness Treatments prior to arrival: acetaminophen Review of Systems Const: Denies: fever(s), chills, body aches, change in appetite, fatigue, malaise or diaphoresis ENMT: Denies: throat pain, ear or mastoid pain, nasal discharge or nasal congestion Card: Denies: chest pain, edema, lightheadedness, syncope, pre-syncope, dyspnea on exertion or orthopnea Resp: Denies: dyspnea, productive cough or non-productive cough GI: Denies: abdominal pain, nausea, vomiting, hematemesis, coffee ground emesis, diarrhea, constipation, bloating, hematochezia or melena : Denies: flank pain, difficulty voiding, dysuria, urinary frequency or urinary urgency Skin/Breast: Denies: rash or pruritus Neuro: Denies: confusion PFSH ED PFSH: Medical History Chronic constipation Controlled with medications followed by her primary care provider COPD (chronic obstructive pulmonary disease) Diagnosed in 2013 and is controlled with medication COPD (chronic obstructive pulmonary disease) Depression Diagnosed at the age of 23 and has been on medication since then. She follows up with Dr. Benitez a psychiatrist and as well as therapy in [place]. She currently denies suicidal/homicidal ideation. Essential (primary) hypertension Diagnosed in 2018 and she follows up with Dr. Anderson and cardiology. Gastro-esophageal reflux disease without esophagitis Controlled with medication. H/O deep venous thrombosis Reports having a DVT in 2019 and states her warfarin dose was increased after this. She follows up with Dr. Crespo -had second DVT in 11/2019 and was taken off warfarin and is now on eliquis Obstructive sleep apnea Personal history of pulmonary embolism (~2012) States that she had a PE in 2012 and has been on warfarin since then. TIA (transient ischemic attack) Reports having had a TIA in 2019. Denies any neurological deficits. Followed by her primary care provider. Surgical History Status post conization of cervix Office LEEP procedure performed by Dr. Zelaya in 2005 for MARY-2 on Pap smear. 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 Status post knee surgery 2018-open knee surgery for torn ACL Status post left breast lumpectomy Patient reports having had 3 lumpectomies of her left breast in 1999, 2007 and 2009 for benign lesions. Family History Mother Hypertension Heart disease Grandmother Hypertension maternal and paternal Breast cancer maternal, diagnosed at age 43 Colon cancer maternal, diagnosed at age 63 Father Hypertension Grandfather Hypertension maternal and paternal Heart disease maternal Denies family history of Ovarian cancer Diabetes Uterine cancer Thyroid condition Stroke Social History Smoking and tobacco status: never smoked Second hand smoke exposure: Yes Alcohol intake: current Substance/Drug Use: current Substance/Drug use frequency: few times a month Other substance/drug use details: Medical card, gets 11 gummies/month Other details last substance use: last used 2013 per patient Lives independently: Yes Housing: House Marital status: Single Number of children: 0 service: No Current occupational status: disabled Current gender identity: Female Special tereza needs: No Agree to transfusion: Yes Physical Exam Const: GENERAL APPEARANCE: cooperative and comfortable ORIENTATION/CONSCIOUSNESS: Yes awake, Yes oriented to person, Yes oriented to place and Yes oriented to time HENMT: COMMON NORMALS: normocephalic, atraumatic and hearing grossly normal bilaterally HEAD & SCALP: normocephalic and atraumatic Eye: DIRECT OPHTHALMOSCOPY: No photophobia Resp: COMMON NORMALS: normal respiratory effort, No retractions, No use of accessory muscles and clear to auscultation bilaterally AUSCULTATION: clear to auscultation bilaterally Cardio: COMMON NORMALS: regular rate, regular rhythm and No murmurs present (Cardio) RATE: regular rate RHYTHM: regular rhythm GI: COMMON NORMALS: Soft to palpation and No hepatosplenomegaly present AUSCULTATION: Yes normoactive bowel sounds PALPATION: Yes Soft to palpation, No Tenderness to palpation present (GI), No Guarding due to palpation present (GI) and Yes No hepatosplenomegaly present Extremity: COMMON NORMALS: normal to inspection, capillary refill normal, no clubbing, cyanosis or edema, no calf tenderness and no pedal edema Neuro: SENSORIUM/ORIENTATION: Yes oriented to person, Yes oriented to place and Yes oriented to time Skin: COMMON NORMALS: no rashes or lesions noted GENERAL SKIN EXAM: no rashes or lesions noted Course Vital Signs: Vital signs: Vital Signs Temperature 98.5 F 12/23/22 10:03 Pulse Rate 80 12/23/22 14:49 Respiratory Rate 18 12/23/22 10:03 Blood Pressure 108/75 12/23/22 14:49 Pulse Oximetry 95 12/23/22 14:49 Oxygen Delivery Me thod Room Air 12/23/22 10:03 MDM - Headache Medical Decision Making Initial NIH score 0 repeat patient still has no definitive findings she has breakaway muscle weakness when I test her leg strength sitting at the bedside she reports loss of sensation on the lateral portion of her left leg but on the medial portion states it is normal. Suspect it may be from more peripheral nerve issue however she states she has no back pain. She has had this worked up before had similar symptoms on several occasions. We offered admission for observation for further evaluation she declined. She will be discharged home at her preference as her preference and will refer her to neurology return if she has further problems. Medical Records I reviewed the patient's medical records. Lab Data 12/23/22 12:23 12/23/22 12:[address] 12/23/22 10:38 Impression: Negative for acute intracranial abnormality. Chest X-Ray 12/23/22 11:41 IMPRESSION: No acute abnormality. Laboratory Results WBC 8.3 10^3/uL (4.0-10.0) 12/23/22 12:23 RBC 4.64 10^6/uL (4.1-5.3) 12/23/22 12:23 Hgb 13.8 g/dL (11.5-15.3) 12/23/22 12:23 Hct 42.9 % (37.0-47.0) 12/23/22 12:23 MCV 92.5 fl (81-99) 12/23/22 12:23 MCH 29.7 pg (28.0-34.0) 12/23/22 12:23 MCHC 32.2 g/dL (30.0-36.0) 12/23/22 12:23 RDW 14.3 % (12.1-15.1) 12/23/22 12:23 Plt Count 342 10^3/cmm (130-400) 12/23/22 12:23 MPV 10.4 fL (7.4-10.4) 12/23/22 12:23 Neut % (Auto) 68.8 % 12/23/22 12:23 Lymph % (Auto) 23.3 % 12/23/22 12:23 [place] % (Auto) 7.3 % 12/23/22 12:23 Eos % (Auto) 0.0 % 12/23/22 12:23 Baso % (Auto) 0.2 % 12/23/22 12:23 Neut # (Auto) 5.68 10^3/uL (1.8-7.7) 12/23/22 12:23 Lymph # (Auto) 1.9 10^3/uL (0.8-4.8) 12/23/22 12:23 [place] # (Auto) 0.6 10^3/uL (0.2-0.9) 12/23/22 12:23 Eos # (Auto) 0.0 10^3/uL (0.0-0.8) 12/23/22 12:23 Baso # (Auto) 0.0 10^3/uL (0.0-0.1) 12/23/22 12:23 Nucleated RBC % (auto) 0 % 12/23/22 12:23 Nucleated RBCs # 0.0 /100WBC 12/23/22 12:23 Sodium 136 mmol/L (136-145) 12/23/22 12:23 Potassium 3.2 mmol/L (3.5-5.1) L 12/23/22 12:23 Chloride 96 mmol/L (98-107) L 12/23/22 12:23 Carbon Dioxide 28 mmol/L (22-29) 12/23/22 12:23 Anion Gap 15.2 (5-19) 12/23/22 12:23 BUN 11 mg/dL (6-20) 12/23/22 12:23 Creatinine 1.2 mg/dL (0.5-0.9) H 12/23/22 12:23 GFR Calculation 48.6 mL/min (90-130) L 12/23/22 12:23 Glucose 75 mg/dL (65-115) 12/23/22 12:23 Calculated Osmolality 280 mOsm/kg (285-295) L 12/23/22 12:23 Calcium 9.5 mg/dL (8.5-10.5) 12/23/22 12:23 Total Bilirubin 0.2 mg/dL (0.15-1.2) 12/23/22 12:23 AST 22 U/L (0-32) 12/23/22 12:23 ALT 30 U/L (0-33) 12/23/22 12:23 Alkaline Phosphatase 89 U/L (35-105) 12/23/22 12:23 Ammonia 18 umol/L (11-51) 12/23/22 12:23 Total Protein 7.1 g/dL (6.6-8.7) 12/23/22 12:23 Albumin 3.9 g/dL (3.5-5.2) 12/23/22 12:23 Globulin 3.2 g/dL (1.3-4.6) 12/23/22 12:23 Urine Color Yellow (Yellow) 12/23/22 13:06 Urine Appearance Clear (CLEAR) 12/23/22 13:06 Urine pH 5 (5-7) 12/23/22 13:06 Ur Specific [place] 1.020 (1.005-1.030) 12/23/22 13:06 Urine Protein Neg (Negative) 12/23/22 13:06 Urine Glucose (UA) 4+ (Normal) H 12/23/22 13:06 Urine Ketones Negative (Negative) 12/23/22 13:06 Urine Blood 2+ (Negative) H 12/23/22 13:06 Urine Nitrate Negative (Negative) 12/23/22 13:06 Urine Bilirubin Neg (Negative) 12/23/22 13:06 Urine Urobilinogen Norm mg/dL (Negative) 12/23/22 13:06 Ur Leukocyte Esterase Trace (Negative) H 12/23/22 13:06 Urine RBC 0-4 /hpf (0-2) H 12/23/22 13:06 Urine WBC 0-4 /hpf (0-5) H 12/23/22 13:06 Ur Squamous Epith Cells 5-10 /hpf (0-5) H 12/23/22 13:06 Amorphous Sediment Not Reportable 12/23/22 13:06 Urine Bacteria Trace /hpf (NONE) 12/23/22 13:06 Urine Mucus 2+ /hpf 12/23/22 13:06 Salicylates < 0.3 mg/dL (3-10) L 12/23/22 12:23 Urine Opiates Screen Negative ng/mL (Negative) 12/23/22 13:06 Acetaminophen < 5.0 ug/mL (10-30) L 12/23/22 12:23 Ur Barbiturates Screen Negative ng/mL (Negative) 12/23/22 13:06 Ur Phencyclidine Scrn Negative ng/mL (Negative) 12/23/22 13:06 Ur Amphetamines Screen Negative ng/mL (Negative) 12/23/22 13:06 U Benzodiazepines Scrn Positive ng/mL (Negative) H 12/23/22 13:06 Urine Cocaine Screen Negative ng/mL (Negative) 12/23/22 13:06 U Marijuana (THC) Screen Positive ng/mL (Negative) H 12/23/22 13:06 Ethyl Alcohol < 10 mg/dL (0-10) 12/23/22 12:23 Discharge Plan Discharge Patient Disposition: Home Clinical Impression: Headache, Leg weakness Condition: Stable Prescriptions: No Action albuterol sulfate [Ventolin HFA] 90 mcg/actuation HFA aerosol inhaler 2 puff INHALATION QID PRN (Reason: Shortness Of Breath) quetiapine 300 mg tablet 300 mg PO BEDTIME oxcarbazepine 300 mg tablet 300 mg PO BID Qty: 30 0RF promethazine 25 mg tablet 25 mg PO TID PRN (Reason: nausea and vomiting) Qty: 20 0RF budesonide-formoterol [Symbicort] 160-4.5 mcg/actuation HFA aerosol inhaler 1 puff inhalation BID Qty: 10.2 0RF fexofenadine-pseudoephedrine [Ivette-D 12 Hour] 60-120 mg tablet extended release 12 hr 1 tab PO Q12H PRN (Reason: allergy symptoms) Qty: 20 0RF fluconazole [Diflucan] 150 mg tablet 150 mg PO DAILY Qty: 3 0RF promethazine 25 mg tablet 25 mg PO Q6H PRN (Reason: nausea and vomiting) Qty: 20 0RF potassium chloride 20 mEq tablet,ER particles/crystals See Rx Instructions .ROUTE .COMPLEX Qty: 30 0RF Dose Instruction: TAKE ONE TABLET BY MOUTH ONCE a DAY with food Rx Instructions: TAKE ONE TABLET BY MOUTH ONCE a DAY with food (DME) Blood Glucose Test Strip See Rx Instructions .Route Qty: 50 1RF Rx Instructions: As directed isosorbide dinitrate 20 mg tablet See Rx Instructions .ROUTE .COMPLEX Qty: 60 3RF Dose Instruction: TAKE ONE TABLET BY MOUTH TWICE DAILY Rx Instructions: TAKE ONE TABLET BY MOUTH TWICE DAILY metformin 500 mg tablet 1,000 mg PO BID Qty: 120 0RF Rx Instructions: 1,000 mg orally twice a day; NEEDS LAB DRAW ferrous sulfate [FeroSul] 325 mg (65 mg iron) tablet See Rx Instructions .ROUTE .COMPLEX Qty: 30 2RF Dose Instruction: TAKE ONE TABLET BY MOUTH EVERY MORNING Rx Instructions: TAKE ONE TABLET BY MOUTH EVERY MORNING omeprazole 40 mg capsule,delayed release(DR/EC) See Rx Instructions .ROUTE .COMPLEX Qty: 30 2RF Dose Instruction: TAKE ONE CAPSULE BY MOUTH ONCE DAILY Rx Instructions: TAKE ONE CAPSULE BY MOUTH ONCE DAILY Ozempic 0.25 mg or 0.5 mg (2 mg/3 mL) pen injector See Rx Instructions .ROUTE .COMPLEX Qty: 1.5 2RF Dose Instruction: inject 0.5mg SUBCUTANEOUSLY ONCE WEEKLY Rx Instructions: inject 0.5mg SUBCUTANEOUSLY ONCE WEEKLY fenofibrate 160 mg tablet 160 mg PO DAILY Qty: 30 2RF ondansetron 4 mg tablet,disintegrating See Rx Instructions .ROUTE .COMPLEX Qty: 7 0RF Dose Instruction: DISSOLVE ONE TABLET in MOUTH EVERY 8 HOURS NEEDED Rx Instructions: DISSOLVE ONE TABLET in MOUTH EVERY 8 HOURS NEEDED nystatin 100,000 unit/gram cream See Rx Instructions .ROUTE .COMPLEX Qty: 40 3RF Dose Instruction: APPLY ONE application topically TWICE DAILY NEEDED Rx Instructions: APPLY ONE application topically TWICE DAILY NEEDED Jardiance 25 mg tablet See Rx Instructions .ROUTE .COMPLEX Qty: 30 2RF Dose Instruction: TAKE ONE TABLET BY MOUTH DAILY Rx Instructions: TAKE ONE TABLET BY MOUTH DAILY Eliquis 5 mg tablet See Rx Instructions .ROUTE .COMPLEX Qty: 60 2RF Dose Instruction: TAKE ONE TABLET BY MOUTH TWICE DAILY Rx Instructions: TAKE ONE TABLET BY MOUTH TWICE DAILY metoprolol tartrate 100 mg tablet See Rx Instructions .ROUTE .COMPLEX Qty: 60 2RF Dose Instruction: TAKE ONE TABLET BY MOUTH TWICE DAILY with food Rx Instructions: TAKE ONE TABLET BY MOUTH TWICE DAILY with food glipizide 5 mg tablet See Rx Instructions .ROUTE .COMPLEX Qty: 60 2RF Dose Instruction: TAKE ONE TABLET BY MOUTH TWICE DAILY Rx Instructions: TAKE ONE TABLET BY MOUTH TWICE DAILY alprazolam [Xanax] 2 mg Tablet 2 mg PO TID PRN (Reason: Anxiety) desvenlafaxine 100 mg Tablet Extended Release 24 Hr 100 mg PO DAILY desipramine 100 mg tablet 100 mg PO DAILY cholecalciferol (vitamin D3) 1,250 mcg (50,000 unit) capsule 1,250 mcg PO Q7D Rx Instructions: on aripiprazole 5 mg tablet 5 mg PO BEDTIME Alive Women's Gummy Vitamin 200 mcg- 37.5 mg Tablet,Chewable 1 tab PO DAILY chlorthalidone 25 mg tablet 25 mg PO DAILY ergocalciferol (vitamin D2) 1,250 mcg (50,000 unit) capsule 1,250 mcg PO Q7D potassium chloride 20 mEq tablet,ER particles/crystals 20 meq PO BID Qty: 10 0RF Discharge Orders: Discharge ED (Routine); Ordered 12/23/22 Ordered By: Waldemar Augustine Referrals: Pham Jackman MD [Primary Care Provider] - Discharge Diet: Usual diet Discharge Activity: Resume usual activity Patient Instructions: Opioid Safety, Pain Management Activity Restrictions/Additional Instructions: You were seen today for headache and weakness in the left leg. We had recommended observation for further testing. You would prefer to to go home today will have case management make a follow-up appoint with neurology as soon as they are able. Return if you have worsening problems. Coding Level of Care Code ED J2Ee Java Developer for Marci Helms NIH stroke score NIHSS Level Of Consciousness - 1a: 0 Level Of Consciousness Questions - 1b: Both Correct Level Of Consciousness Commands - 1c: Both Correct Best Gaze - 2: Normal Visual Aragon - 3: No Visual Loss Facial Palsy - 4: Normal Motor Arm Right - 5: No Drift Motor Arm Left - 5: No Drift Motor Leg Right - 6: No Drift Motor Leg Left - 6: No Drift Limb Ataxia - 7: Absent Sensory - 8: Normal Best Language - 9: No Aphasia Dysarthia - 10: Normal Extinction And Inattention - 11: 0 Score Total Score: 0
--- NOTE | 2022-12-23 10:38 | CT_ITS ---
WS: [id number] CT scan of the head, 12/23/2022 Clinical Data: Headache numbness and tingling in the left arm and leg Comparison: 10/24/2021 DLP: 1028.[address] scans at [facility] use at least one of these dose optimization techniques: automated e xposure control; mA and/or kV adjustment per patient size (includes targeted exams where dose is matc hed to clinical indication); or iterative reconstruction. Findings: The ventricular system is normal without shift. Minimal atrophy is present. No recent infarct or hemo rrhage is seen. There are no abnormal intracerebral masses. The cerebellum and brainstem are not carson rkable. Bony windows of the skull and skull base show no fractures or erosions. The mastoid air cells, internet application developer al auditory canals, sella turcica, intraorbital contents, and paranasal sinuses are unremarkable. CT/CT head wo con* [id number] Impression: Negative for acute intracranial abnormality.
[2022-12-23] MEDS: sodium chloride 0.9% 1,000 ML 999 ML IV (10:54)
[2022-12-23] MEDS: promethazine 25 mg/mL SDV 1 mL IM (10:55)
[2022-12-23] MEDS: diphenhydrAMINE 50 mg/mL SDV 1mL IVP (10:55)
[2022-12-23] MEDS: ketorolac 30 mg/mL INJ IVP (10:55)
[2022-12-23 11:26] VITALS: BP 100/73; PULSE 79; O2SAT 98
--- NOTE | 2022-12-23 11:41 | XR_ITS ---
WS: [id number] XR chest 1V portable [id number] REASON FOR EXAM: dyspnea/cough FINDINGS: The chest is unchanged compared to 06/20/2022. The heart and mediastinum within normal limits. Minimal calcified granulomatous disease bilaterally. No acute/subacute pulmonary parenchymal or pleural abnormality. Bony thorax is intact with no significant focal abnormality. XR/XR chest 1V portable [id number] IMPRESSION: No acute abnormality.
[2022-12-23 12:07] VITALS: BP 106/78; PULSE 85; O2SAT 98
--- NOTE | 2022-12-23 12:08 | PC.NURSE ---
Per Dr. Augustine, he wanted me to evaluate her walking, the pastry baker Zeinab and I stood patient up and she wanted to go to the bathroom while she was up, we attempted to stand pivot transfer to the commode, she stated that she couldn't feel her left leg and it gave out on her, we slowly assisted her to the floor onto her bottom. Patient was assisted back into the bed, no injuries or complaints from patient.
[2022-12-23 12:48] LABS: Basophils % 0.2 %; Hematocrit 42.9 % (37.0-47.0); Hemoglobin 13.8 g/dL (11.5-15.3); Lymphocytes # 1.9 10^3/uL (0.8-4.8); Lymphocytes % 23.3 %; Mean Corpuscular HGB Conc 32.2 g/dL (30.0-36.0); Mean Corpuscular Hemoglobin 29.7 pg (28.0-34.0); Mean Corpuscular Volume 92.5 fl (81-99); Mean Platelet Volume 10.4 fL (7.4-10.4); Monocytes # 0.6 10^3/uL (0.2-0.9); Monocytes % 7.3 %; Neutrophils # 5.68 10^3/uL (1.8-7.7); Neutrophils % 68.8 %; Nucleated Red Blood Cells % 0 %; Platelet Count 342 10^3/cmm (130-400); Red Blood Count 4.64 10^6/uL (4.1-5.3); Red Cell Distribution Width 14.3 % (12.1-15.1); White Blood Count 8.3 10^3/uL (4.0-10.0)
--- NOTE | 2022-12-23 13:04 | ECG_ITS ---
[facility] Test Date: 2022-12-23 Pat Name: Heladio Branch Department: Room: Gender: Female Engineer Third Assistant: : 1975 Requested By: Waldemar Osborne Order Number: [id number] Adalid MD: Prasanth Nunn M.D. Measurements Intervals Diagonal Rate: 81 P: 48 MO: 178 QRS: 22 QRSD: 102 T: 49 QT: 367 QTc: 427 Interpretive Statements SINUS RHYTHM NONSPECIFIC T-WAVE ABNORMALITY Compared to ECG 06/20/2022 03:28:17 T-wave abnormality now present Sinus tachycardia no longer present Electronically Signed On 12-23-2022 16:14:41 CDT by Prasanth Nunn M.D. [id number]
[2022-12-23 13:08] VITALS: BP 128/92; PULSE 86; O2SAT 95
[2022-12-23 13:08] LABS: Alanine Aminotransferase 30 U/L (0-33); Albumin Level 3.9 g/dL (3.5-5.2); Alkaline Phosphatase 89 U/L (35-105); Anion Gap 15.2 (5-19); Aspartate Amino Transferase 22 U/L (0-32); Blood Urea Nitrogen 11 mg/dL (6-20); Calcium 9.5 mg/dL (8.5-10.5); Carbon Dioxide 28 mmol/L (22-29); Chloride 96 mmol/L (98-107); Globulin 3.2 g/dL (1.3-4.6); Glomerular Filtration Rate 48.6 mL/min (90-130); Glucose 75 mg/dL (65-115); Osmolality Calculated 280 mOsm/kg (285-295); Potassium 3.2 mmol/L (3.5-5.1); Sodium 136 mmol/L (136-145); Total Bilirubin 0.2 mg/dL (0.15-1.2); Total Protein 7.1 g/dL (6.6-8.7)
[2022-12-23 13:09] LABS: Acetaminophen < 5.0 ug/mL (10-30); Alcohol Level < 10 mg/dL (0-10); Ammonia 18 umol/L (11-51); Salicylate < 0.3 mg/dL (3-10)
[2022-12-23 13:36] LABS: Amphetamines Screen Urine Negative (Negative); Barbiturates Screen Urine Negative (Negative); Benzodiazepines Screen Urine Positive (Negative); Cocaine Screen Urine Negative (Negative); Opiate Screen Urine Negative (Negative); PCP Screen Urine Negative (Negative); THC Screen Urine Positive (Negative)
[2022-12-23 13:41] LABS: Add Urine Microscopic? YES; Bilirubin Urine Neg (Negative); Blood Urine 2+ (Negative); Glucose Urine UA 4+ (Normal); Ketones Urine Negative (Negative); Leukocyte Esterase Urine Trace (Negative); Nitrate Urine Negative (Negative); Protein Urine Neg (Negative); Urine Appearance Clear (CLEAR); Urine Color Yellow (Yellow); Urobilinogen Urine Norm (Negative); pH Urine 5 (5-7)
[2022-12-23 13:42] LABS: Add Urine Culture? No; Bacteria Urine TRACE /hpf; Mucus Urine 2+ /hpf; RBC Urine 0-4 /hpf (0-2); WBC Urine 0-4 /hpf (0-5)
[2022-12-23 14:07] VITALS: BP 108/75; PULSE 80; O2SAT 95
--- NOTE | 2022-12-23 14:46 | DCPLANNER ---
Addendum entered by Gisela Patel 02/02/23 10:26: Patient did not attend appointment scheduled with neurology. Addendum entered by Gisela Patel 01/10/23 14:46: Patient has a follow up appointment scheduled for Monday, February 01, 2023 at 9:[address] Abreu at neurology. Original Note: inside sales manager had message to schedule a follow up appointment for patient with neurology. inside sales manager sent patients information to the front office staff at neurology. Patients information will be printed and reviewed. Clinic will call patient with appointment information.
[2022-12-23 14:49] VITALS: BP 108/75; PULSE 80; O2SAT 95
== END 2022-12-23 14:50 | disposition home or self-care (01) ==
PROVIDERS: Emergency Provider Family Medicine; PCP Family Medicine
DX: R51.9 Headache, unspecified (principal); R53.1 Weakness; Z79.01 Long term (current) use of anticoagulants; Z79.84 Long term (current) use of oral hypoglycemic drugs; Z77.22 Contact with and (suspected) exposure to environmental tobacco smoke (acute) (chronic); J44.9 Chronic obstructive pulmonary disease, unspecified; I10 Essential (primary) hypertension; Z86.73 Personal history of transient ischemic attack (TIA), and cerebral infarction without residual deficits
CPT/HCPCS: 36415; 70450; 71045; 80053; 80306; 80307; 81001; 82140; 85025; 93005; 96361; 96372; 96374; 96375; 99285; J1200; J1885; J2550; J7030

== ENCOUNTER 2023-01-26 23:22 | Emergency (ER) | payer MEDICARE, MEDICAID, SELFPAY ==
[2023-01-26 23:23] VITALS: BP 103/79; PULSE 109; RESP 19; O2SAT 96; BMI 46.0
--- NOTE | 2023-01-26 23:23 | XRR_ITS ---
PROCEDURE INFORMATION: Exam: XR Chest Exam date and time: 01/27/2023 12:02 AM Age: 47 years old Clinical indication: Chest pressure; Prior surgery; Surgery date: 6+ months; Surgery type: Breast lumpectomy; Patient HX: C/O chest pain; Additional info: Cp TECHNIQUE: Imaging protocol: Radiologic exam of the chest. Views: 1 view. COMPARISON: CR XR chest 1V portable [id number] 12/23/2022 12:13 PM FINDINGS: Lungs: Unremarkable. No consolidation. Pleural spaces: Unremarkable. No pleural effusion. No pneumothorax. Heart/Mediastinum: Unremarkable. No cardiomegaly. Bones/joints: Unremarkable. XR/XR chest 1V portable [id number] IMPRESSION: No acute findings.
--- NOTE | 2023-01-26 23:27 | ECG_ITS ---
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 Measurements Intervals [place] Rate: 103 P: 56 AK: 168 QRS: 24 QRSD: 90 T: 49 QT: 333 QTc: 437 Interpretive Statements SINUS TACHYCARDIA Compared to ECG 12/23/2022 13:04:49 Sinus rhythm no longer present T-wave abnormality no longer present Electronically Signed On 01-27-2023 9:25:23 CDT by Prasanth Nunn M.D. [id number]
--- NOTE | 2023-01-26 23:31 | W.ED.CHESTPA ---
HPI - Chest Pain General: Chief Complaint: Chest Pain Stated Complaint: CHEST PAIN Time Seen by Provider: 01/26/23 23:22 Source: patient and EMS Mode of arrival: EMS Limitations: no limitations History of Present Illness: 47-year-old female who states she has been having off-and-on chest pain over the last year she does follow-up with Dr. Anderson of cardiology but she states that throughout the day she has had some increasing chest pain states been a sharp pain that seems to be worse when she moves and in certain positions she denies any shortness of breath denies any cough she is currently pain-free. Denies any abdominal pain or nausea Associated symptoms: Reports dyspnea; Deny abdominal pain, fever(s), nausea or vomiting Review of Systems Const: Denies: fever(s) or chills ENMT: Denies: throat pain or dental pain Card: Reports: chest pain Resp: Reports: dyspnea GI: Denies: abdominal pain, nausea, vomiting or diarrhea Musc: Denies: neck pain or back pain Skin/Breast: Denies: rash PFSH ED PFSH: Medical History Chronic constipation Controlled with medications followed by her primary care provider COPD (chronic obstructive pulmonary disease) Diagnosed in 2013 and is controlled with medication COPD (chronic obstructive pulmonary disease) Depression Diagnosed at the age of 23 and has been on medication since then. She follows up with Dr. Benitez a psychiatrist and as well as therapy in [place]. She currently denies suicidal/homicidal ideation. Essential (primary) hypertension Diagnosed in 2019 and she follows up with Dr. Anderson and cardiology. Gastro-esophageal reflux disease without esophagitis Controlled with medication. H/O deep venous thrombosis Reports having a DVT in 2019 and states her warfarin dose was increased after this. She follows up with Dr. Crespo -had second DVT in 11/2019 and was taken off warfarin and is now on eliquis Obstructive sleep apnea Personal history of pulmonary embolism (~2012) States that she had a PE in 2012 and has been on warfarin since then. TIA (transient ischemic attack) Reports having had a TIA in 2019. Denies any neurological deficits. Followed by her primary care provider. Surgical History Status post conization of cervix Office LEEP procedure performed by Dr. Zelaya in 2005 for MARY-2 on Pap smear. 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 Status post knee surgery 2018-open knee surgery for torn ACL Status post left breast lumpectomy Patient reports having had 3 lumpectomies of her left breast in 1999, 2007 and 2009 for benign lesions. Family History Mother Hypertension Heart disease Grandmother Hypertension maternal and paternal Breast cancer maternal, diagnosed at age 43 Colon cancer maternal, diagnosed at age 63 Father Hypertension Grandfather Hypertension maternal and paternal Heart disease maternal Denies family history of Ovarian cancer Diabetes Uterine cancer Thyroid condition Stroke Social History Smoking and tobacco status: never smoked Second hand smoke exposure: Yes Alcohol intake: current Substance/Drug Use: current Substance/Drug use frequency: few times a month Other substance/drug use details: Medical card, gets 11 gummies/month Other details last substance use: last used 2013 per patient Lives independently: Yes Housing: House Marital status: Single Number of children: 0 service: No Current occupational status: disabled Current gender identity: Female Special tereza needs: No Agree to transfusion: Yes Physical Exam Const: COMMON NORMALS: no acute distress, patient oriented x3 and healthy appearing HENMT: COMMON NORMALS: normocephalic and atraumatic HEAD & SCALP: normocephalic and atraumatic Neck/C-Spine: COMMON NORMALS: full ROM and supple Chest: COMMONS NORMALS: normal inspection of the chest and normal palpation of entire chest wall Resp: COMMON NORMALS: normal respiratory effort, No retractions, No use of accessory muscles and clear to auscultation bilaterally AUSCULTATION: clear to auscultation bilaterally Cardio: COMMON NORMALS: regular rate, regular rhythm and No murmurs present (Cardio) RATE: regular rate RHYTHM: regular rhythm GI: COMMON NORMALS: Normal to inspection, nondistended, normoactive bowel sounds present, Soft to palpation, non-tender and no masses PALPATION: Yes Soft to palpation Extremity: COMMON NORMALS: normal to inspection and full ROM Neuro: COMMON NORMALS: patient oriented x3, moves all extremities and no focal motor deficits Psych: COMMON NORMALS: mental status grossly normal, Normal thought process present and cooperative THOUGHT PROCESS: Normal thought process present Skin: COMMON NORMALS: no rashes or lesions noted and no wounds GENERAL SKIN EXAM: no rashes or lesions noted Course Reevaluation(s): Reevaluation #1: Patient's arm roll is down and she fell asleep and rolled out of her bed sheets fell on the floor she did hit her head she complains of a headache no other injuries noted. Will CT her head and C-spine Time: 00:56 Vital Signs: Vital signs: Vital Signs Pulse Rate 99 01/27/23 01:00 Respiratory Rate 19 H 01/26/23 23: Blood Pressure 117/76 01/27/23 01:00 Pulse Oximetry 96 01/27/23 01:00 Oxygen Delivery Me thod Room Air 01/27/23 01:00 MDM - Chest Pain Medical Decision Making Patient presents for chest pains atypical in nature both troponins here are normal she is pain-free here no signs of acute coronary syndrome dissection or pulmonary embolism. 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 Medical Records I reviewed the patient's medical records. Lab Data I reviewed the patient's lab results. 01/26/23 23:33 01/26/23 23:33 Radiology Impressions Chest X-Ray 01/26/23 23:23 IMPRESSION: No acute findings. Cervical Spine CT 01/27/23 00:55 IMPRESSION: No acute findings. Head CT 01/27/23 00:55 IMPRESSION: 1. Negative for intracranial hemorrhage or mass effect 2. Bilateral scalp soft tissue swelling. Laboratory Results WBC 6.8 10^3/uL (4.0-10.0) 01/26/23 23:33 RBC 4.90 10^6/uL (4.1-5.3) 01/26/23 23:33 Hgb 14.7 g/dL (11.5-15.3) 01/26/23 23:33 Hct 44.8 % (37.0-47.0) 01/26/23 23:33 MCV 91.4 fl (81-99) 01/26/23 23: MCH 30.0 pg (28.0-34.0) 01/26/23: MCHC 32.8 g/dL (30.0-36.0) 01/26/23: RDW 13.5 % (12.1-15.1) 01/26/23: Plt Count 373 10^3/cmm (130-400) 01/26/23: MPV 10.5 fL (7.4-10.4) H 01/26/23: Neut % (Auto) 52.3 % 01/26/23: Lymph % (Auto) 38.9 % 01/26/23: [place] % (Auto) 7.8 % 01/26/23: Eos % (Auto) 0.4 % 01/26/23: Baso % (Auto) 0.3 % 01/26/23: Neut # (Auto) 3.57 10^3/uL (1.8-7.7) 01/26/23: Lymph # (Auto) 2.7 10^3/uL (0.8-4.8) 01/26/23: [place] # (Auto) 0.5 10^3/uL (0.2-0.9) 01/26/23: Eos # (Auto) 0.0 10^3/uL (0.0-0.8) 01/26/23: Baso # (Auto) 0.0 10^3/uL (0.0-0.1) 01/26/23: Nucleated RBC % (auto) 0 % 01/26/23: Nucleated RBCs # 0.0 /100WBC 01/26/23: PT 13.00 SECONDS (12.1-14.9) 01/26/23: INR 0.96 (0.8-1.2) 01/26/23 23: Sodium 139 mmol/L (136-145) 01/26/23: Potassium 4.6 mmol/L (3.5-5.1) 01/26/23: Chloride 101 mmol/L (98-107) 01/26/23: Carbon Dioxide 24 mmol/L (22-29) 01/26/23 23: Anion Gap 18.6 (5-19) 01/26/23 23:33 BUN 10 mg/dL (6-20) 01/26/23 23:33 Creatinine 1.2 mg/dL (0.5-0.9) H 01/26/23 23:33 GFR Calculation 48.6 mL/min (90-130) L 01/26/23 23:33 Glucose 106 mg/dL (65-115) 01/26/23 23:33 Calculated Osmolality 287 mOsm/kg (285-295) 01/26/23 23:33 Calcium 9.9 mg/dL (8.5-10.5) 01/26/23 23:33 Total Bilirubin 0.2 mg/dL (0.15-1.2) 01/26/23 23:33 AST 39 U/L (0-32) H 01/26/23 23:33 ALT 46 U/L (0-33) H 01/26/23 23:33 Alkaline Phosphatase 50 U/L (35-105) 01/26/23 23:33 Troponin T Baseline 6 ng/L (0-10) 01/26/23 23:33 Troponin T 120 Minute 6.87 ng/L (0-10) 01/27/23 01:35 Delta Troponin T 0.87 ABS# (0-10) 01/27/23 01:35 Total Protein 7.3 g/dL (6.6-8.7) 01/26/23 23:33 Albumin 4.3 g/dL (3.5-5.2) 01/26/23 23:33 Globulin 3.0 g/dL (1.3-4.6) 01/26/23 23:33 Lipase 70 U/L (13-60) H 01/26/23 23:33 EKG Data EKG 1: I personally reviewed and interpreted this EKG as follows: EKG interpretation date: 01/26/23 EKG interpretation time: 23:27 Interpretation: sinus tach hr [address] or t wave abnormalities qrs 90 qtc 393 Discharge Plan Discharge Patient Disposition: Home Clinical Impression: Chest pain, CHI (closed head injury) Condition: Stable Prescriptions: New Naprosyn 500 mg tablet 500 mg PO BID PRN (Reason: pain) Qty: 20 0RF No Action albuterol sulfate [Ventolin HFA] 90 mcg/actuation HFA aerosol inhaler 2 puff INHALATION QID PRN (Reason: Shortness Of Breath) quetiapine 300 mg tablet 300 mg PO BEDTIME oxcarbazepine 300 mg tablet 300 mg PO BID Qty: 30 0RF promethazine 25 mg tablet 25 mg PO TID PRN (Reason: nausea and vomiting) Qty: 20 0RF budesonide-formoterol [Symbicort] 160-4.5 mcg/actuation HFA aerosol inhaler 1 puff inhalation BID Qty: 10.2 0RF fexofenadine-pseudoephedrine [Ivette-D 12 Hour] 60-120 mg tablet extended release 12 hr 1 tab PO Q12H PRN (Reason: allergy symptoms) Qty: 20 0RF fluconazole [Diflucan] 150 mg tablet 150 mg PO DAILY Qty: 3 0RF nortriptyline 50 mg capsule 50 mg PO .qhs Qty: 30 2RF promethazine 25 mg tablet 25 mg PO Q6H PRN (Reason: nausea and vomiting) Qty: 20 0RF potassium chloride 20 mEq tablet,ER particles/crystals See Rx Instructions .ROUTE .COMPLEX Qty: 30 0RF Dose Instruction: TAKE ONE TABLET BY MOUTH ONCE a DAY with food Rx Instructions: TAKE ONE TABLET BY MOUTH ONCE a DAY with food (DME) Blood Glucose Test Strip See Rx Instructions .Route Qty: 50 1RF Rx Instructions: As directed isosorbide dinitrate 20 mg tablet See Rx Instructions .ROUTE .COMPLEX Qty: 60 3RF Dose Instruction: TAKE ONE TABLET BY MOUTH TWICE DAILY Rx Instructions: TAKE ONE TABLET BY MOUTH TWICE DAILY metformin 500 mg tablet 1,000 mg PO BID Qty: 120 0RF Rx Instructions: 1,000 mg orally twice a day; NEEDS LAB DRAW Ozempic 0.25 mg or 0.5 mg (2 mg/3 mL) pen injector See Rx Instructions .ROUTE .COMPLEX Qty: 1.5 2RF Dose Instruction: inject 0.5mg SUBCUTANEOUSLY ONCE WEEKLY Rx Instructions: inject 0.5mg SUBCUTANEOUSLY ONCE WEEKLY ondansetron 4 mg tablet,disintegrating See Rx Instructions .ROUTE .COMPLEX Qty: 7 0RF Dose Instruction: DISSOLVE ONE TABLET in MOUTH EVERY 8 HOURS NEEDED Rx Instructions: DISSOLVE ONE TABLET in MOUTH EVERY 8 HOURS NEEDED nystatin 100,000 unit/gram cream See Rx Instructions .ROUTE .COMPLEX Qty: 40 3RF Dose Instruction: APPLY ONE application topically TWICE DAILY NEEDED Rx Instructions: APPLY ONE application topically TWICE DAILY NEEDED Jardiance 25 mg tablet See Rx Instructions .ROUTE .COMPLEX Qty: 30 2RF Dose Instruction: TAKE ONE TABLET BY MOUTH DAILY Rx Instructions: TAKE ONE TABLET BY MOUTH DAILY Eliquis 5 mg tablet See Rx Instructions .ROUTE .COMPLEX Qty: 60 2RF Dose Instruction: TAKE ONE TABLET BY MOUTH TWICE DAILY Rx Instructions: TAKE ONE TABLET BY MOUTH TWICE DAILY metoprolol tartrate 100 mg tablet See Rx Instructions .ROUTE .COMPLEX Qty: 60 2RF Dose Instruction: TAKE ONE TABLET BY MOUTH TWICE DAILY with food Rx Instructions: TAKE ONE TABLET BY MOUTH TWICE DAILY with food glipizide 5 mg tablet See Rx Instructions .ROUTE .COMPLEX Qty: 60 2RF Dose Instruction: TAKE ONE TABLET BY MOUTH TWICE DAILY Rx Instructions: TAKE ONE TABLET BY MOUTH TWICE DAILY ergocalciferol (vitamin D2) 1,250 mcg (50,000 unit) capsule See Rx Instructions .ROUTE .COMPLEX Qty: 30 3RF Dose Instruction: TAKE ONE CAPSULE BY MOUTH ONCE A WEEK Rx Instructions: TAKE ONE CAPSULE BY MOUTH ONCE A WEEK omeprazole 40 mg capsule,delayed release(DR/EC) See Rx Instructions .ROUTE .COMPLEX Qty: 30 2RF Dose Instruction: TAKE ONE CAPSULE BY MOUTH ONCE DAILY Rx Instructions: TAKE ONE CAPSULE BY MOUTH ONCE DAILY ferrous sulfate [FeroSul] 325 mg (65 mg iron) tablet See Rx Instructions .ROUTE .COMPLEX Qty: 30 2RF Dose Instruction: TAKE ONE TABLET BY MOUTH EVERY MORNING Rx Instructions: TAKE ONE TABLET BY MOUTH EVERY MORNING fenofibrate 160 mg tablet See Rx Instructions .ROUTE .COMPLEX Qty: 30 2RF Dose Instruction: TAKE ONE TABLET BY MOUTH DAILY Rx Instructions: TAKE ONE TABLET BY MOUTH DAILY alprazolam [Xanax] 2 mg Tablet 2 mg PO TID PRN (Reason: Anxiety) desvenlafaxine 100 mg Tablet Extended Release 24 Hr 100 mg PO DAILY desipramine 100 mg tablet 100 mg PO DAILY aripiprazole 5 mg tablet 5 mg PO BEDTIME Alive Women's Gummy Vitamin 200 mcg- 37.5 mg Tablet,Chewable 1 tab PO DAILY chlorthalidone 25 mg tablet 25 mg PO DAILY ergocalciferol (vitamin D2) 1,250 mcg (50,000 unit) capsule 1,250 mcg PO Q7D potassium chloride 20 mEq tablet,ER particles/crystals 20 meq PO BID Qty: 10 0RF Discharge Orders: Discharge ED (Routine); Ordered 01/27/23 Ordered By: Milagros Pat Referrals: Phma Jackman MD [Primary Care Provider] - 1-3 days Discharge Diet: Advance as tolerated Discharge Activity: Resume usual activity Patient Instructions: Chest Pain (ED), Head Injury (ED) Coding Level of Care Code ED Call Or Contact Centre Manager for [facility]
[2023-01-26 23:46] LABS: Basophils % 0.3 %; Eosinophils % 0.4 %; Hematocrit 44.8 % (37.0-47.0); Hemoglobin 14.7 g/dL (11.5-15.3); Lymphocytes # 2.7 10^3/uL (0.8-4.8); Lymphocytes % 38.9 %; Mean Corpuscular HGB Conc 32.8 g/dL (30.0-36.0); Mean Corpuscular Volume 91.4 fl (81-99); Mean Platelet Volume 10.5 fL (7.4-10.4); Monocytes # 0.5 10^3/uL (0.2-0.9); Monocytes % 7.8 %; Neutrophils # 3.57 10^3/uL (1.8-7.7); Neutrophils % 52.3 %; Nucleated Red Blood Cells % 0 %; Platelet Count 373 10^3/cmm (130-400); Red Cell Distribution Width 13.5 % (12.1-15.1); White Blood Count 6.8 10^3/uL (4.0-10.0)
[2023-01-27] LABS: INR 0.96 (0.8-1.2)
[2023-01-27 00:05] LABS: Troponin(5th) Baseline 6 ng/L (0-10)
[2023-01-27 00:06] LABS: Alanine Aminotransferase 46 U/L (0-33); Albumin Level 4.3 g/dL (3.5-5.2); Alkaline Phosphatase 50 U/L (35-105); Anion Gap 18.6 (5-19); Aspartate Amino Transferase 39 U/L (0-32); Blood Urea Nitrogen 10 mg/dL (6-20); Calcium 9.9 mg/dL (8.5-10.5); Carbon Dioxide 24 mmol/L (22-29); Chloride 101 mmol/L (98-107); Glomerular Filtration Rate 48.6 mL/min (90-130); Glucose 106 mg/dL (65-115); Lipase 70 U/L (13-60); Osmolality Calculated 287 mOsm/kg (285-295); Potassium 4.6 mmol/L (3.5-5.1); Sodium 139 mmol/L (136-145); Total Bilirubin 0.2 mg/dL (0.15-1.2); Total Protein 7.3 g/dL (6.6-8.7)
[2023-01-27 00:22] VITALS: BP 101/63; PULSE 104; O2SAT 96
--- NOTE | 2023-01-27 00:55 | CTR_ITS ---
PROCEDURE INFORMATION: Exam: CT Head Without Contrast Exam date and time: 01/27/2023 1:09 AM Age: 47 years old Clinical indication: Injury or trauma; Fall; Blunt trauma (contusions or hematomas); Patient HX: Side rail was down in er bed and patient accidentally rolled out of bed striking head on floor. C/O SHANE with abrasion to RT frontal. ; Additional info: Head injury TECHNIQUE: Imaging protocol: Computed tomography of the head without contrast. Radiation optimization: All CT scans at this facility use at least one of these dose optimization techniques: automated exposure control; mA and/or kV adjustment per patient size (includes targeted exams where dose is matched to clinical indication); or iterative reconstruction. REPORTING DATA: Count of CT and Cardiac NM exams in prior 12 months: This patient has received 4 known CTs and 0 known cardiac nuclear medicine studies in the 12 months prior to the current study. COMPARISON: CT head wo con* [id number] 12/23/2022 11:00 AM RADIATION DOSE METRICS: Total DLP (mGy-cm): 1000.79 FINDINGS: Brain: Normal. No hemorrhage. Unremarkable white matter. No mass effect. Cerebral ventricles: No ventriculomegaly. Paranasal sinuses: Visualized sinuses are unremarkable. No fluid levels. Mastoid air cells: Visualized mastoid air cells are well aerated. Bones/joints: Unremarkable. No acute fracture. Soft tissues: Bilateral scalp soft tissue swelling. CT/CT head wo con* [id number] IMPRESSION: 1. Negative for intracranial hemorrhage or mass effect 2. Bilateral scalp soft tissue swelling.
--- NOTE | 2023-01-27 00:55 | CTR_ITS ---
PROCEDURE INFORMATION: Exam: CT Cervical Spine Without Contrast Exam date and time: 01/27/2023 1:12 AM Age: 47 years old Clinical indication: Injury or trauma; Fall; Blunt trauma; Patient HX: Side rail was down in er bed and patient accidentally rolled out of bed striking head on floor. C/O SHANE with abrasion to RT frontal. TECHNIQUE: Imaging protocol: Computed tomography of the cervical spine without contrast. Radiation optimization: All CT scans at this facility use at least one of these dose optimization techniques: automated exposure control; mA and/or kV adjustment per patient size (includes targeted exams where dose is matched to clinical indication); or iterative reconstruction. REPORTING DATA: Count of CT and Cardiac NM exams in prior 12 months: This patient has received 4 known CTs and 0 known cardiac nuclear medicine studies in the 12 months prior to the current study. COMPARISON: CT cervical spin wo con* [id number] 08/30/2021 11:00 PM RADIATION DOSE METRICS: Total DLP (mGy-cm): 361.77 FINDINGS: Bones/joints: No acute fracture. Normal alignment. C2-C3: No significant disc bulge or herniation. No severe spinal canal stenosis. No significant neural foraminal narrowing. C3-C4: No significant disc bulge or herniation. No severe spinal canal stenosis. No significant neural foraminal narrowing. C4-C5: No significant disc bulge or herniation. No severe spinal canal stenosis. No significant neural foraminal narrowing. C5-C6: No significant disc bulge or herniation. No severe spinal canal stenosis. No significant neural foraminal narrowing. C6-C7: No significant disc bulge or herniation. No severe spinal canal stenosis. No significant neural foraminal narrowing. C7-T1: No significant disc bulge or herniation. No severe spinal canal stenosis. No significant neural foraminal narrowing. Lungs: Lung apices are normal. Soft tissues: Unremarkable. CT/CT cervical spin wo con* [id number] IMPRESSION: No acute findings.
[2023-01-27 01:00] VITALS: BP 117/76; PULSE 99; O2SAT 96
--- NOTE | 2023-01-27 01:23 | ECG_ITS ---
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 Measurements Intervals [place] Rate: 116 P: 47 WI: 178 QRS: 15 QRSD: 90 T: 52 QT: 317 QTc: 441 Interpretive Statements SINUS TACHYCARDIA Compared to ECG 01/26/2023 23:27:23 No significant changes Electronically Signed On 01-27-2023 9:28:55 CDT by Prasanth Nunn M.D. [email or web address]
[2023-01-27 02:45] LABS: Troponin 5 2HR 6.87 ng/L (0-10); Troponin 5 2HR Delta 0.87 ABS# (0-10)
[2023-01-27] MEDS: HYDROcodone-acetaminophen 5-325 mg Tablet 1 TAB PO (02:57)
== END 2023-01-27 03:26 | disposition home or self-care (01) ==
PROVIDERS: Emergency Provider Emergency Medicine; PCP Family Medicine
DX: R07.9 Chest pain, unspecified (principal); S09.8XXA Other specified injuries of head, initial encounter; Z79.84 Long term (current) use of oral hypoglycemic drugs; Z79.01 Long term (current) use of anticoagulants; Z77.22 Contact with and (suspected) exposure to environmental tobacco smoke (acute) (chronic); J44.9 Chronic obstructive pulmonary disease, unspecified; I10 Essential (primary) hypertension; Z86.73 Personal history of transient ischemic attack (TIA), and cerebral infarction without residual deficits; X58.XXXA Exposure to other specified factors, initial encounter
CPT/HCPCS: 36415; 70450; 71045; 72125; 80053; 83690; 84484; 85025; 85610; 93005; 99285

== ENCOUNTER 2023-02-02 19:28 | Emergency (ER) | payer MEDICARE, MEDICAID, SELFPAY ==
[2023-02-02 19:40] VITALS: BP 142/98; PULSE 104; RESP 18; TEMP 35.3; O2SAT 96; BMI 42.9
[2023-02-02 20:14] LABS: Basophils % 0.7 %; Eosinophils % 0.7 %; Hematocrit 41.4 % (37.0-47.0); Lymphocytes # 2.1 10^3/uL (0.8-4.8); Lymphocytes % 46.9 %; Mean Corpuscular HGB Conc 31.4 g/dL (30.0-36.0); Mean Corpuscular Hemoglobin 29.7 pg (28.0-34.0); Mean Corpuscular Volume 94.5 fl (81-99); Mean Platelet Volume 10.5 fL (7.4-10.4); Monocytes # 0.4 10^3/uL (0.2-0.9); Neutrophils # 1.89 10^3/uL (1.8-7.7); Neutrophils % 43.2 %; Nucleated Red Blood Cells % 0 %; Platelet Count 274 10^3/cmm (130-400); Red Blood Count 4.38 10^6/uL (4.1-5.3); Red Cell Distribution Width 13.5 % (12.1-15.1); White Blood Count 4.4 10^3/uL (4.0-10.0)
[2023-02-02] MEDS: sodium chloride 0.9% 1,000 ML 999 ML IV (20:17)
[2023-02-02 20:21] VITALS: BP 135/82; PULSE 94; O2SAT 97
[2023-02-02 20:30] VITALS: BP 129/87; PULSE 92; O2SAT 96
[2023-02-02 20:37] LABS: Add Urine Culture? No; Add Urine Microscopic? YES; Bacteria Urine 2+ /hpf; Bilirubin Urine Neg (Negative); Blood Urine Neg (Negative); Glucose Urine UA 4+ (Normal); Ketones Urine Negative (Negative); Leukocyte Esterase Urine Negative (Negative); Nitrate Urine Negative (Negative); Protein Urine Neg (Negative); Specific Gravity, Urine 1.015 (1.005-1.030); Squamous Epithelial Cell Urine 15-25 /hpf (0-5); Urine Appearance SL Hazy (CLEAR); Urine Color Light yellow (Yellow); Urobilinogen Urine Neg (Negative); pH Urine 5 (5-7)
[2023-02-02 20:38] LABS: Alanine Aminotransferase 25 U/L (0-33); Albumin Level 3.8 g/dL (3.5-5.2); Alkaline Phosphatase 35 U/L (35-105); Anion Gap 14.2 (5-19); Aspartate Amino Transferase 16 U/L (0-32); Blood Urea Nitrogen 15 mg/dL (6-20); Calcium 9.3 mg/dL (8.5-10.5); Carbon Dioxide 27 mmol/L (22-29); Chloride 103 mmol/L (98-107); Globulin 2.7 g/dL (1.3-4.6); Glomerular Filtration Rate 48.6 mL/min (90-130); Glucose 97 mg/dL (65-115); Magnesium 1.5 mg/dL (1.7-2.3); Osmolality Calculated 291 mOsm/kg (285-295); Potassium 4.2 mmol/L (3.5-5.1); Sodium 140 mmol/L (136-145); Total Bilirubin 0.2 mg/dL (0.15-1.2); Total Protein 6.5 g/dL (6.6-8.7)
[2023-02-02 21:30] VITALS: BP 116/83; PULSE 86; O2SAT 96
--- NOTE | 2023-02-02 21:39 | ED_ITS ---
HPI - General Adult General: Chief complaint: General Medical Stated complaint: KNEE PAIN Time Seen by Provider: 02/02/23 19:42 History of Present Illness: 47-year-old female with complex medical history including COPD, anxiety, mood disorder, diabetes, TIA, PE and hypertension. Presents emergency room via EMS today with vague complaints of feeling lightheaded, feeling very foggy, diarrhea with nausea. Denies any head injury, no blurry vision or change in vision. No headache at this time.. Patient has any recent travel or sick contacts. She describes diarrhea as loose stool without any blood, dark stool, fever or chills. Associated symptoms: Reports headache(s) (Pain along side of her head) and malaise; Deny chest pain, diaphoresis, dyspnea, palpitations or syncope Review of Systems Const: Reports: fatigue and malaise; Denies: fever(s), chills, body aches, night sweats, diaphoresis, change in sleep pattern or daytime sleepiness Card: Denies: chest pain, palpitations, irregular heart rhythm, swelling of feet/ankles, lightheadedness, syncope or pre-syncope Resp: Denies: dyspnea, productive cough, non-productive cough, wheezing or stridor : Reports: urinary frequency; Denies: flank pain, difficulty voiding, dysuria, urinary incontinence, genital pruritis, vaginal dryness or vaginal odor Neuro: Reports: headache(s) (Pain along side of her head); Denies: numbness in extremities, weakness in extremities, sensory changes or l ack of coordination Psych: Denies: anxiety, depression, mood swings, panic attacks, sleeping less, sleeping more, hopelessness or loss of interest [facility] PFSH: Medical History Chronic constipation Controlled with medications followed by her primary care provider COPD (chronic obstructive pulmonary disease) Diagnosed in 2013 and is controlled with medication COPD (chronic obstructive pulmonary disease) Depression Diagnosed at the age of 23 and has been on medication since then. She follows up with Dr. Benitez a psychiatrist and as well as therapy in [place]. She currently denies suicidal/homicidal ideation. Essential (primary) hypertension Diagnosed in 2019 and she follows up with Dr. Anedrson and cardiology. Gastro-esophageal reflux disease without esophagitis Controlled with medication. H/O deep venous thrombosis Reports having a DVT in 2019 and states her warfarin dose was increased after this. She follows up with Dr. Crespo -had second DVT in 11/2019 and was taken off warfarin and is now on eliquis Obstructive sleep apnea Personal history of pulmonary embolism (~2012) States that she had a PE in 2012 and has been on warfarin since then. TIA (transient ischemic attack) Reports having had a TIA in 2019. Denies any neurological deficits. Followed by her primary care provider. Surgical History Status post conization of cervix Office LEEP procedure performed by Dr. Zelaya in 2005 for MARY-2 on Pap smear. 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 Status post knee surgery 2018-open knee surgery for torn ACL Status post left breast lumpectomy Patient reports having had 3 lumpectomies of her left breast in 1999, 2007 and 2009 for benign lesions. Family History Mother Hypertension Heart disease Grandmother Hypertension maternal and paternal Breast cancer maternal, diagnosed at age 43 Colon cancer maternal, diagnosed at age 63 Father Hypertension Grandfather Hypertension maternal and paternal Heart disease maternal Denies family history of Ovarian cancer Diabetes Uterine cancer Thyroid condition Stroke Social History Smoking and tobacco status: never smoked Second hand smoke exposure: Yes Alcohol intake: current Substance/Drug Use: current Substance/Drug use frequency: few times a month Other substance/drug use details: Medical card, gets 11 gummies/month Other details last substance use: last used 2013 per patient Lives independently: Yes Housing: House Marital status: Single Number of children: 0 service: No Current occupational status: disabled Current gender identity: Female Special tereza needs: No Agree to transfusion: Yes Physical Exam Const: COMMON NORMALS: no acute distress, average body habitus, patient oriented x3, no limitations, healthy appearing, alert and well nourished HENMT: COMMON NORMALS: normocephalic, atraumatic, hearing grossly normal bilaterally, external ears normal, EAC's normal, TM's normal bilaterally, Normal external nose present, Normal nasal mucous membranes and turbinates present, moist oral mucous membranes, oropharynx normal, dentition normal and gingiva normal HEAD & SCALP: normocephalic and atraumatic NOSE: Normal external nose present and Normal nasal mucous membranes and turbinates present EXTERNAL EAR: Yes external ears normal EXTERNAL AUDITORY CANAL: EAC's normal TYMPANIC MEMBRANE: TM's normal bilaterally Eye: COMMON NORMALS: Equal, round and reactive pupils present, EOMs intact bilaterally, conjunctivae normal, no scleral icterus, no papilledema, normal visual gomez by confrontation and fundi normal bilaterally CONJUNCTIVA: Yes conjunctivae normal PUPIL: Yes Equal, round and reactive pupils present DIRECT OPHTHALMOSCOPY: Yes no papilledema and Yes fundi normal bilaterally Chest: COMMONS NORMALS: normal inspection of the chest, normal palpation of entire chest wall, normal inspection of the breasts and normal palpation of the breasts Breast/axilla inspection: Yes normal inspection of the breasts BREAST/AXILLA PALPATION: Yes normal palpation of the breasts Resp: COMMON NORMALS: normal respiratory effort, No retractions, No use of accessory muscles, clear to auscultation bilaterally and percussion normal AUSCULTATION: clear to auscultation bilaterally PERCUSSION: percussion normal GI: COMMON NORMALS: Normal to inspection, nondistended, normoactive bowel sounds present, Soft to palpation, non-tender, No hepatosplenomegaly present, no masses and no bruits PALPATION: Yes Soft to palpation and Yes No hepatosp lenomegaly present Extremity: COMMON NORMALS: normal to inspection, full ROM, capillary refill normal, no joint enlargement, no clubbing, cyanosis or edema, no calf tenderness and no pedal edema Neuro: COMMON NORMALS: patient oriented x3 SENSORIUM/ORIENTATION: Yes alert Psych: COMMON NORMALS: mental status grossly normal, Normal thought process present, cooperative, normal affect, speech normal, activity/motor behavior normal, denies hallucinations, denies homicidal ideation and denies suicidal ideation SPEECH: Yes normal speech THOUGHT PROCESS: Normal thought process present Course Vital Signs: Vital signs: Vital Signs Temperature 95.5 F L 02/02/23 19:40 Pulse Rate 94 02/02/23 20:21 Respiratory Rate 18 02/02/23 19:40 Blood Pressure 135/82 02/02/23 20:21 Pulse Oximetry 97 02/02/23 20:21 Oxygen Delivery Me thod Room Air 02/02/23 20:21 [facility] - General Adult Medical Decision Making Patient was made comfortable emergency room. Patient extensive work-up done including CBC, CMP and a UA. She was given IV fluid. Discussed the lab finding with the patient. Patient was told to follow-up with her PCP for medical management and medication adjustment. I believe patient might be taking high dose of metformin. Differential Diagnosis UTI, infection, viral syndrome, electrolyte abnormalities, anemia Lab Data 02/02/23 19:56 02/02/23 19:56 Laboratory Results WBC 4.4 10^3/uL (4.0-10.0) 02/02/23 19:56 RBC 4.38 10^6/uL (4.1-5.3) 02/02/23 19:56 Hgb 13.0 g/dL (11.5-15.3) 02/02/23 19:56 Hct 41.4 % (37.0-47.0) 02/02/23 19:56 MCV 94.5 fl (81-99) 02/02/23 19:56 MCH 29.7 pg (28.0-34.0) 02/02/23 19:56 MCHC 31.4 g/dL (30.0-36.0) 02/02/23 19:56 RDW 13.5 % (12.1-15.1) 02/02/23 19:56 Plt Count 274 10^3/cmm (130-400) 02/02/23 19:56 MPV 10.5 fL (7.4-10.4) H 02/02/23 19:56 Neut % (Auto) 43.2 % 02/02/23 19:56 Lymph % (Auto) 46.9 % 02/02/23 19:56 [place] % (Auto) 8.0 % 02/02/23 19:56 Eos % (Auto) 0.7 % 02/02/23 19:56 Baso % (Auto) 0.7 % 02/02/23 19:56 Neut # (Auto) 1.89 10^3/uL (1.8-7.7) 02/02/23 19:56 Lymph # (Auto) 2.1 10^3/uL (0.8-4.8) 02/02/23 19:56 [place] # (Auto) 0.4 10^3/uL (0.2-0.9) 02/02/23 19:56 Eos # (Auto) 0.0 10^3/uL (0.0-0.8) 02/02/23 19:56 Baso # (Auto) 0.0 10^3/uL (0.0-0.1) 02/02/23 19:56 Nucleated RBC % (auto) 0 % 02/02/23 19:56 Nucleated RBCs # 0.0 /100WBC 02/02/23 19:56 Sodium 140 mmol/L (136-145) 02/02/23 19:56 Potassium 4.2 mmol/L (3.5-5.1) 02/02/23 19:56 Chloride 103 mmol/L (98-107) 02/02/23 19:56 Carbon Dioxide 27 mmol/L (22-29) 02/02/23 19:56 Anion Gap 14.2 (5-19) 02/02/23 19:56 BUN 15 mg/dL (6-20) 02/02/23 19:56 Creatinine 1.2 mg/dL (0.5-0.9) H 02/02/23 19:56 GFR Calculation 48.6 mL/min (90-130) L 02/02/23 19:56 Glucose 97 mg/dL (65-115) 02/02/23 19:56 Calculated Osmolality 291 mOsm/kg (285-295) 02/02/23 19:56 Calcium 9.3 mg/dL (8.5-10.5) 02/02/23 19:56 Magnesium 1.5 mg/dL (1.7-2.3) L 02/02/23 19:56 Total Bilirubin 0.2 mg/dL (0.15-1.2) 02/02/23 19:56 AST 16 U/L (0-32) 02/02/23 19:56 ALT 25 U/L (0-33) 02/02/23 19:56 Alkaline Phosphatase 35 U/L (35-105) 02/02/23 19:56 Total Protein 6.5 g/dL (6.6-8.7) L 02/02/23 19:56 Albumin 3.8 g/dL (3.5-5.2) 02/02/23 19:56 Globulin 2.7 g/dL (1.3-4.6) 02/02/23 19:56 Urine Color Light yellow (Yellow) 02/02/23 20:23 Urine Appearance Sl hazy (CLEAR) A 02/02/23 20: Urine pH 5 (5-7) 02/02/23 20:23 Ur Specific [place] 1.015 (1.005-1.030) 02/02/23 20:23 Urine Protein Neg (Negative) 02/02/23 20:23 Urine Glucose (UA) 4+ (Normal) H 02/02/23 20:23 Urine Ketones Negative (Negative) 02/02/23 20:23 Urine Blood Neg (Negative) 02/02/23 20: Urine Nitrate Negative (Negative) 02/02/23 20: Urine Bilirubin Neg (Negative) 02/02/23 20: Urine Urobilinogen Neg mg/dL (Negative) 02/02/23 20:23 Ur Leukocyte Esterase Negative (Negative) 02/02/23 20:23 Urine RBC None /hpf (0-2) 02/02/23 20:23 Urine WBC None /hpf (0-5) 02/02/23 20:23 Ur Squamous Epith Cells 15-25 /hpf (0-5) H 02/02/23 20: Amorphous Sediment Not Reportable 02/02/23 20: Urine Bacteria 2+ /hpf (NONE) H 02/02/23 20:23 Discharge Plan Discharge Patient Disposition: Home Clinical Impression: Weakness, Diarrhea, Adverse effects of medication Condition: Stable Prescriptions: No Action albuterol sulfate [Ventolin HFA] 90 mcg/actuation HFA aerosol inhaler 2 puff INHALATION QID PRN (Reason: Shortness Of Breath) quetiapine 300 mg tablet 300 mg PO BEDTIME oxcarbazepine 300 mg tablet 300 mg PO BID Qty: 30 0RF promethazine 25 mg tablet 25 mg PO TID PRN (Reason: nausea and vomiting) Qty: 20 0RF budesonide-formoterol [Symbicort] 160-4.5 mcg/actuation HFA aerosol inhaler 1 puff inhalation BID Qty: 10.2 0RF fexofenadine-pseudoephedrine [Ivette-D 12 Hour] 60-120 mg tablet extended release 12 hr 1 tab PO Q12H PRN (Reason: allergy symptoms) Qty: 20 0RF fluconazole [Diflucan] 150 mg tablet 150 mg PO DAILY Qty: 3 0RF nortriptyline 50 mg capsule 50 mg PO .qhs Qty: 30 2RF promethazine 25 mg tablet 25 mg PO Q6H PRN (Reason: nausea and vomiting) Qty: 20 0RF potassium chloride 20 mEq tablet,ER particles/crystals See Rx Instructions .ROUTE .COMPLEX Qty: 30 0RF Dose Instruction: TAKE ONE TABLET BY MOUTH ONCE a DAY with food Rx Instructions: TAKE ONE TABLET BY MOUTH ONCE a DAY with food (DME) Blood Glucose Test Strip See Rx Instructions .Route Qty: 50 1RF Rx Instructions: As directed isosorbide dinitrate 20 mg tablet See Rx Instructions .ROUTE .COMPLEX Qty: 60 3RF Dose Instruction: TAKE ONE TABLET BY MOUTH TWICE DAILY Rx Instructions: TAKE ONE TABLET BY MOUTH TWICE DAILY metformin 500 mg tablet 1,000 mg PO BID Qty: 120 0RF Rx Instructions: 1,000 mg orally twice a day; NEEDS LAB DRAW Ozempic 0.25 mg or 0.5 mg (2 mg/3 mL) pen injector See Rx Instructions .ROUTE .COMPLEX Qty: 1.5 2RF Dose Instruction: inject 0.5mg SUBCUTANEOUSLY ONCE WEEKLY Rx Instructions: inject 0.5mg SUBCUTANEOUSLY ONCE WEEKLY ondansetron 4 mg tablet,disintegrating See Rx Instructions .ROUTE .COMPLEX Qty: 7 0RF Dose Instruction: DISSOLVE ONE TABLET in MOUTH EVERY 8 HOURS NEEDED Rx Instructions: DISSOLVE ONE TABLET in MOUTH EVERY 8 HOURS NEEDED nystatin 100,000 unit/gram cream See Rx Instructions .ROUTE .COMPLEX Qty: 40 3RF Dose Instruction: APPLY ONE application topically TWICE DAILY NEEDED Rx Instructions: APPLY ONE application topically TWICE DAILY NEEDED Jardiance 25 mg tablet See Rx Instructions .ROUTE .COMPLEX Qty: 30 2RF Dose Instruction: TAKE ONE TABLET BY MOUTH DAILY Rx Instructions: TAKE ONE TABLET BY MOUTH DAILY Eliquis 5 mg tablet See Rx Instructions .ROUTE .COMPLEX Qty: 60 2RF Dose Instruction: TAKE ONE TABLET BY MOUTH TWICE DAILY Rx Instructions: TAKE ONE TABLET BY MOUTH TWICE DAILY metoprolol tartrate 100 mg tablet See Rx Instructions .ROUTE .COMPLEX Qty: 60 2RF Dose Instruction: TAKE ONE TABLET BY MOUTH TWICE DAILY with food Rx Instructions: TAKE ONE TABLET BY MOUTH TWICE DAILY with food glipizide 5 mg tablet See Rx Instructions .ROUTE .COMPLEX Qty: 60 2RF Dose Instruction: TAKE ONE TABLET BY MOUTH TWICE DAILY Rx Instructions: TAKE ONE TABLET BY MOUTH TWICE DAILY ergocalciferol (vitamin D2) 1,250 mcg (50,000 unit) capsule See Rx Instructions .ROUTE .COMPLEX Qty: 30 3RF Dose Instruction: TAKE ONE CAPSULE BY MOUTH ONCE A WEEK Rx Instructions: TAKE ONE CAPSULE BY MOUTH ONCE A WEEK omeprazole 40 mg capsule,delayed release(DR/EC) See Rx Instructions .ROUTE .COMPLEX Qty: 30 2RF Dose Instruction: TAKE ONE CAPSULE BY MOUTH ONCE DAILY Rx Instructions: TAKE ONE CAPSULE BY MOUTH ONCE DAILY ferrous sulfate [FeroSul] 325 mg (65 mg iron) tablet See Rx Instructions .ROUTE .COMPLEX Qty: 30 2RF Dose Instruction: TAKE ONE TABLET BY MOUTH EVERY MORNING Rx Instructions: TAKE ONE TABLET BY MOUTH EVERY MORNING fenofibrate 160 mg tablet See Rx Instructions .ROUTE .COMPLEX Qty: 30 2RF Dose Instruction: TAKE ONE TABLET BY MOUTH DAILY Rx Instructions: TAKE ONE TABLET BY MOUTH DAILY alprazolam [Xanax] 2 mg Tablet 2 mg PO TID PRN (Reason: Anxiety) desvenlafaxine 100 mg Tablet Extended Release 24 Hr 100 mg PO DAILY desipramine 100 mg tablet 100 mg PO DAILY aripiprazole 5 mg tablet 5 mg PO BEDTIME Alive Women's Gummy Vitamin 200 mcg- 37.5 mg Tablet,Chewable 1 tab PO DAILY chlorthalidone 25 mg tablet 25 mg PO DAILY ergocalciferol (vitamin D2) 1,250 mcg (50,000 unit) capsule 1,250 mcg PO Q7D potassium chloride 20 mEq tablet,ER particles/crystals 20 meq PO BID Qty: 10 0RF Naprosyn 500 mg tablet 500 mg PO BID PRN (Reason: pain) Qty: 20 0RF Discharge Orders: Discharge ED (Routine); Ordered 02/02/23 Ordered By: Tony Cuellar Referrals: Pham Jackman MD [Primary Care Provider] - Discharge Diet: Advance as tolerated Discharge Activity: Resume usual activity Patient Instructions: Opioid Safety, Pain Management Coding Level of Care Code ED Transitional Living Specialist for Marci Helms
[2023-02-02 22:21] LABS: Glucose Point of Care 62 mg/dL (70-110)
[2023-02-02 22:30] VITALS: BP 117/80; PULSE 82; O2SAT 96
[2023-02-02 22:51] LABS: Glucose Point of Care 78 mg/dL (70-110)
--- NOTE | 2023-02-02 22:58 | PC.NURSE ---
BLOOD SUGAR TAKEN BEFORE DISCHARGE. DR LYNN NOTIFIED. DR LEAH QUIJANO WITH PATIENT BEING DISCHARGED.
== END 2023-02-02 22:59 | disposition home or self-care (01) ==
PROVIDERS: Emergency Provider Family Medicine; PCP Family Medicine
DX: R53.1 Weakness (principal); R19.7 Diarrhea, unspecified; T38.3X5A Adverse effect of insulin and oral hypoglycemic [antidiabetic] drugs, initial encounter; Z79.84 Long term (current) use of oral hypoglycemic drugs; Z79.01 Long term (current) use of anticoagulants; Z77.22 Contact with and (suspected) exposure to environmental tobacco smoke (acute) (chronic); J44.9 Chronic obstructive pulmonary disease, unspecified; I10 Essential (primary) hypertension; Z86.73 Personal history of transient ischemic attack (TIA), and cerebral infarction without residual deficits
CPT/HCPCS: 36415; 36416; 80053; 81001; 82962; 83735; 85025; 96360; 96361; 99284; J7030

== ENCOUNTER 2023-02-24 20:18 | Observation (INO) | payer MEDICARE, MEDICAID, SELFPAY ==
[2023-02-24 20:22] VITALS: BP 122/96; PULSE 115; RESP 20; TEMP 36.7; O2SAT 96; BMI 46.1
--- NOTE | 2023-02-24 20:30 | ECG_ITS ---
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 Measurements Intervals [place] Rate: 118 P: 44 UT: 174 QRS: 6 QRSD: 93 T: 51 QT: 311 QTc: 436 Interpretive Statements SINUS TACHYCARDIA ABNORMAL RHYTHM ECG Compared to ECG 01/27/2023 00:46:22 No significant changes Electronically Signed On 02-25-2023 13:58:01 CDT by Walter Mcmillan M.D. [email or web address]
--- NOTE | 2023-02-24 20:39 | XRR_ITS ---
PROCEDURE INFORMATION: Exam: XR Chest Exam date and time: 02/24/2023 9:03 PM Age: 47 years old Clinical indication: Patient HX: Witnessed seizure TECHNIQUE: Imaging protocol: Radiologic exam of the chest. Views: 1 view. COMPARISON: CR (CHEST, ) 01/27/2023 12:02 AM FINDINGS: Lungs: No consolidation. Pleural spaces: No pleural effusion. No pneumothorax. Heart/Mediastinum: No cardiomegaly. Bones/joints: No acute fracture. XR/XR chest 1V portable [id number] IMPRESSION: No acute cardiopulmonary findings.
--- NOTE | 2023-02-24 20:39 | CTR_ITS ---
PROCEDURE INFORMATION: Exam: CT Head Without Contrast Exam date and time: 02/24/2023 8:50 PM Age: 47 years old Clinical indication: Condition or disease; Convulsions or seizures; Patient HX: Witnessed seizure. TECHNIQUE: Imaging protocol: Computed tomography of the head without contrast. Radiation optimization: All CT scans at this facility use at least one of these dose optimization techniques: automated exposure control; mA and/or kV adjustment per patient size (includes targeted exams where dose is matched to clinical indication); or iterative reconstruction. REPORTING DATA: Count of CT and Cardiac NM exams in prior 12 months: This patient has received 5 known CTs and 0 known cardiac nuclear medicine studies in the 12 months prior to the current study. COMPARISON: CT head wo con* [id number] 01/27/2023 1:09 AM RADIATION DOSE METRICS: Total DLP (mGy-cm): 988.18 FINDINGS: Brain: No acute intracranial hemorrhage, abnormal extra-axial fluid collection, mass effect, or midline shift. Cerebral ventricles: The ventricular system is within normal limits of variation for the patient's age. Paranasal sinuses: Visualized paranasal sinuses are grossly unremarkable. No air fluid levels. Mastoid air cells: Visualized mastoid air cells are well aerated. Bones/joints: No acute fracture. Soft tissues: Right temporofrontal soft tissue swelling/scalp hematoma is noted. CT/CT head wo con* [id number] IMPRESSION: 1. No acute intracranial findings. 2. Other chronic/incidental findings as described above.
--- NOTE | 2023-02-24 20:39 | W.ED.SEIZURE ---
HPI - Seizure General: Chief Complaint: Seizure Stated Complaint: SEIZURE Time Seen by Provider: 02/24/23 20:31 Source: patient History of Present Illness: HPI Narrative: 47-year-old female presents after a seizure-like episode. This lady was at home, getting ready to take a dog on a walk, and it sat down on a chair. She states that the next thing she remembers is waking up with EMS standing over her. She believes she bit so hard that she broke a tooth off, as she is missing 1 now. She had a second and third episode in the ambulance on the way here, and lost control of her bladder function. She states that she feels like spaghetti now. She is generally weak. She notes that she had had a headache prior to these episodes, but no other illness. She does not have a history of seizure disorder. She takes oxcarbazepine, but as a mood stabilizer. Associated symptoms: Deny chest pain or fever(s) Review of Systems Const: Denies: fever(s) Eyes: Denies: change in vision ENMT: Denies: throat pain Card: Denies: chest pain or palpitations Resp: Denies: dyspnea, productive cough or non-productive cough GI: Reports: nausea; Denies: abdominal pain or vomiting Musc: Denies: neck pain PFSH ED PFSH: Medical History Chronic constipation Controlled with medications followed by her primary care provider COPD (chronic obstructive pulmonary disease) Diagnosed in 2013 and is controlled with medication COPD (chronic obstructive pulmonary disease) Depression Diagnosed at the age of 23 and has been on medication since then. She follows up with Dr. Benitez a psychiatrist and as well as therapy in [place]. She currently denies suicidal/homicidal ideation. Essential (primary) hypertension Diagnosed in 2019 and she follows up with Dr. Anderson and cardiology. Gastro-esophageal reflux disease without esophagitis Controlled with medication. H/O deep venous thrombosis Reports having a DVT in 2018 and states her warfarin dose was increased after this. She follows up with Dr. Crespo -had second DVT in 11/2019 and was taken off warfarin and is now on eliquis Obstructive sleep apnea Personal history of pulmonary embolism (~2012) States that she had a PE in 2012 and has been on warfarin since then. TIA (transient ischemic attack) Reports having had a TIA in 2019. Denies any neurological deficits. Followed by her primary care provider. Surgical History Status post conization of cervix Office LEEP procedure performed by Dr. Zelaya in 2005 for MARY-2 on Pap smear. 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 Status post knee surgery 2018-open knee surgery for torn ACL Status post left breast lumpectomy Patient reports having had 3 lumpectomies of her left breast in 1999, 2007 and 2009 for benign lesions. Family History Mother Hypertension Heart disease Grandmother Hypertension maternal and paternal Breast cancer maternal, diagnosed at age 43 Colon cancer maternal, diagnosed at age 63 Father Hypertension Grandfather Hypertension maternal and paternal Heart disease maternal Denies family history of Ovarian cancer Diabetes Uterine cancer Thyroid condition Stroke Social History Smoking and tobacco status: never smoked Second hand smoke exposure: Yes Alcohol intake: current Substance/Drug Use: current Substance/Drug use frequency: few times a month Other substance/drug use details: Medical card, gets 11 gummies/month Other details last substance use: last used 2013 per patient Lives independently: Yes Housing: House Marital status: Single Number of children: 0 service: No Current occupational status: disabled Current gender identity: Female Special tereza needs: No Agree to transfusion: Yes Physical Exam Const: COMMON NORMALS: no acute distress GENERAL APPEARANCE: cooperative; not ill appearing and not frail appearing HENMT: COMMON NORMALS: normocephalic, atraumatic and Normal external nose present HEAD & SCALP: normocephalic and atraumatic FACE & SINUS: normal facial exam and face symmetric NOSE: Normal external nose present Eye: COMMON NORMALS: Equal, round and reactive pupils present and EOMs intact bilaterally PUPIL: Yes Equal, round and reactive pupils present Neck/C-Spine: GENERAL: Yes trachea midline Chest: CHEST: Yes Symmetrical chest wall rise Resp: COMMON NORMALS: normal respiratory effort, No retractions, No use of accessory muscles and clear to auscultation bilaterally AUSCULTATION: clear to auscultation bilaterally Cardio: COMMON NORMALS: regular rate and regular rhythm RATE: regular rate RHYTHM: regular rhythm GI: COMMON NORMALS: Normal to inspection, nondistended, normoactive bowel sounds present Extremity: COMMON NORMALS: no pedal edema Neuro: NAGEL COMA SCALE: document GCS findings Angel coma scale eye opening: Spontaneous [place] coma scale verbal response: Orientated Angel coma scale motor response: Obey commands [place] coma scale total score: 15 SENSORY EXAM: Yes extremities (intact) Psych: COMMON NORMALS: speech normal SPEECH: Yes normal speech Skin: COMMON NORMALS: no rashes or lesions noted GENERAL SKIN EXAM: no rashes or lesions noted Course Vital Signs: Vital signs: Vital Signs Temperature 98.1 F 02/25/23 01:31 Pulse Rate 98 02/25/23 01:31 Respiratory Rate 16 02/25/23 01:31 Blood Pressure 134/89 02/25/23 01:31 Pulse Oximetry 100 02/25/23 01:31 Oxygen Delivery Me thod Room Air 02/25/23 01:39 MDM - Seizure MDM Narrative Medical decision making narrative: 47-year-old female with 3 seizure-like episodes this evening. She has no prior history of seizure. Mental status appears back to baseline on examination. She is however quite generally weak. Weakness is equal to upper and lower bilateral extremities. She is quite shaky when trying to move. We attempted to walk her in the ER, and she could not walk without significant assistance. Findings are nonfocal, but the patient does live alone, and is at risk of serious injury from falling if sent home. She will be observed. She did not have episodes of seizure during her ER stay. She was loaded with 1 g of Keppra while here. Seizure work-up was essentially benign. Lab Data 02/24/23 19:35 02/24/23 19:35 Labs: Radiology Impressions Chest X-Ray 02/24/23 20:39 IMPRESSION: No acute cardiopulmonary findings. Head CT 02/24/23 20:39 IMPRESSION: 1. No acute intracranial findings. 2. Other chronic/incidental findings as described above. Laboratory Results WBC 8.50 10^3/uL (3.29-11.43) 02/24/23 19:35 RBC 5.38 10^6/uL (3.85-5.65) 02/24/23 19:35 Hgb 15.60 g/dL (11.27-16.99) 02/24/23 19:35 Hct 48.4 % (36-47) H 02/24/23 19:35 MCV 90.0 fl (85-98) 02/24/23 19:35 MCH 29.0 pg (27-33) 02/24/23 19:35 MCHC 32.2 g/dL (30-55) 02/24/23 19:35 RDW 13.2 % (12.1-15.1) 02/24/23 19:35 Plt Count 412 10^3/cmm (157-399) H 02/24/23 19:35 MPV 10.8 fL (7.4-10.4) H 02/24/23 19:35 Neut % (Auto) 43.7 % 02/24/23 19:35 Lymph % (Auto) 45.6 % 02/24/23 19:35 [place] % (Auto) 9.3 % 02/24/23 19:35 Eos % (Auto) 0.5 % 02/24/23 19:35 Baso % (Auto) 0.5 % 02/24/23 19:35 Neut # (Auto) 3.72 10^3/uL (1.8-7.7) 02/24/23 19:35 Lymph # (Auto) 3.9 10^3/uL (0.8-4.8) 02/24/23 19:35 Robeson # (Auto) 0.8 10^3/uL (0.2-0.9) 02/24/23 19:35 Eos # (Auto) 0.0 10^3/uL (0.0-0.8) 02/24/23 19:35 Baso # (Auto) 0.0 10^3/uL (0.0-0.1) 02/24/23 19:35 Nucleated RBC % (auto) 0 % 02/24/23 19:35 Nucleated RBCs # 0.0 /100WBC 02/24/23 19:35 PT 12.30 SECONDS (12.1-14.9) 02/24/23 19:35 INR 0.89 (0.8-1.2) 02/24/23 19:35 APTT 30.0 SECONDS (23.9-36.7) 02/24/23 19:35 Sodium 138 mmol/L (136-145) 02/24/23 19:35 Potassium 4.6 mmol/L (3.5-5.1) 02/24/23 19:35 Chloride 98 mmol/L (98-107) 02/24/23 19:35 Carbon Dioxide 23 mmol/L (22-29) 02/24/23 19:35 Anion Gap 21.6 (5-19) H 02/24/23 19:35 BUN 15 mg/dL (6-20) 02/24/23 19:35 Creatinine 1.3 mg/dL (0.5-0.9) H 02/24/23 19:35 GFR Calculation 44.3 mL/min (90-130) L 02/24/23 19:35 Glucose 86 mg/dL (65-115) 02/24/23 19:35 Calculated Osmolality 286 mOsm/kg (285-295) 02/24/23 19:35 Lactic Acid 2.3 mmol/L (0.5-2.2) H 02/24/23 21:11 Lactic Acid (Sepsis) 2.1 mmol/L (0.5-2.2) 02/25/23 00:04 Calcium 10.3 mg/dL (8.5-10.5) 02/24/23 19:35 Phosphorus 2.6 mg/dL (2.5-4.5) 02/24/23 19:35 Magnesium 1.8 mg/dL (1.7-2.3) 02/24/23 19:35 Total Bilirubin 0.2 mg/dL (0.15-1.2) 02/24/23 19:35 AST 30 U/L (0-32) 02/24/23 19:35 ALT 36 U/L (0-33) H 02/24/23 19:35 Alkaline Phosphatase 55 U/L (35-105) 02/24/23 19:35 Creatine Kinase 42 U/L (26-192) 02/24/23 19:35 Troponin T Baseline 6 ng/L (0-10) 02/24/23 19:35 Troponin T 120 Minute 7.84 ng/L (0-10) 02/24/23 21:56 Delta Troponin T 1.84 ABS# (0-10) 02/24/23 21:56 Total Protein 8.1 g/dL (6.6-8.7) 02/24/23 19:35 Albumin 5.1 g/dL (3.5-5.2) 02/24/23 19:35 Globulin 3.0 g/dL (1.3-4.6) 02/24/23 19:35 HCG, Qual Negative (Negative) 02/24/23 19:35 Urine Color Yellow (Yellow) 02/24/23 22:36 Urine Appearance Hazy (CLEAR) A 02/24/23 22:36 Urine pH 5 (5-7) 02/24/23 22:36 Ur Specific [place] 1.015 (1.005-1.030) 02/24/23 22:36 Urine Protein Neg (Negative) 02/24/23 22:36 Urine Glucose (UA) 4+ (Normal) H 02/24/23 22:36 Urine Ketones 1+ (Negative) H 02/24/23 22:36 Urine Blood 2+ (Negative) H 02/24/23 22:36 Urine Nitrate Negative (Negative) 02/24/23 22:36 Urine Bilirubin Neg (Negative) 02/24/23 22:36 Urine Urobilinogen Neg mg/dL (Negative) 02/24/23 22:36 Ur Leukocyte Esterase Trace (Negative) H 02/24/23 22:36 Urine RBC 0-4 /hpf (0-2) H 02/24/23 22:36 Urine WBC 5-10 /hpf (0-5) H 02/24/23 22:36 Ur Squamous Epith Cells 10-15 /hpf (0-5) H 02/24/23 22:36 Amorphous Sediment Not Reportable 02/24/23 22:36 Urine Bacteria 2+ /hpf (NONE) H 02/24/23 22:36 Urine Mucus 1+ /hpf 02/24/23 22:36 Urine Yeast 1+ /hpf H 02/24/23 22:36 Urine Opiates Screen Negative ng/mL (Negative) 02/24/23 22:36 Ur Barbiturates Screen Negative ng/mL (Negative) 02/24/23 22:36 Carbamazepine 2.0 ug/mL (4.0-12.0) L 02/24/23 19:35 Ur Phencyclidine Scrn Negative ng/mL (Negative) 02/24/23 22:36 Ur Amphetamines Screen Negative ng/mL (Negative) 02/24/23 22:36 U Benzodiazepines Scrn Positive ng/mL (Negative) H 02/24/23 22:36 Urine Cocaine Screen Negative ng/mL (Negative) 02/24/23 22:36 U Marijuana (THC) Screen Positive ng/mL (Negative) H 02/24/23 22:36 Ethyl Alcohol < 10 mg/dL (0-10) 02/24/23 19:35 Discharge Plan Discharge Patient Disposition: Admitted As Inpatient Admit Provider: Edwina Shaw Clinical Impression: Generalized seizure Condition: Stable Coding Level of Care Code ED [employer] Chair for Marci Helms
[2023-02-24 20:50] LABS: Basophils % 0.5 %; Eosinophils % 0.5 %; Hematocrit 48.4 % (36-47); Lymphocytes # 3.9 10^3/uL (0.8-4.8); Lymphocytes % 45.6 %; Mean Corpuscular HGB Conc 32.2 g/dL (30-55); Mean Platelet Volume 10.8 fL (7.4-10.4); Monocytes # 0.8 10^3/uL (0.2-0.9); Monocytes % 9.3 %; Neutrophils # 3.72 10^3/uL (1.8-7.7); Neutrophils % 43.7 %; Nucleated Red Blood Cells % 0 %; Platelet Count 412 10^3/cmm (157-399); Red Blood Count 5.38 10^6/uL (3.85-5.65); Red Cell Distribution Width 13.2 % (12.1-15.1)
[2023-02-24 20:57] LABS: HCG, Serum Qual Negative (Negative)
[2023-02-24 21:04] LABS: INR 0.89 (0.8-1.2)
[2023-02-24 21:06] LABS: Troponin(5th) Baseline 6 ng/L (0-10)
[2023-02-24 21:07] LABS: Alanine Aminotransferase 36 U/L (0-33); Albumin Level 5.1 g/dL (3.5-5.2); Alkaline Phosphatase 55 U/L (35-105); Anion Gap 21.6 (5-19); Aspartate Amino Transferase 30 U/L (0-32); Blood Urea Nitrogen 15 mg/dL (6-20); Calcium 10.3 mg/dL (8.5-10.5); Carbon Dioxide 23 mmol/L (22-29); Chloride 98 mmol/L (98-107); Creatine Phosphokinase 42 U/L (26-192); Glomerular Filtration Rate 44.3 mL/min (90-130); Glucose 86 mg/dL (65-115); Magnesium 1.8 mg/dL (1.7-2.3); Osmolality Calculated 286 mOsm/kg (285-295); Phosphorus 2.6 mg/dL (2.5-4.5); Potassium 4.6 mmol/L (3.5-5.1); Sodium 138 mmol/L (136-145); Total Bilirubin 0.2 mg/dL (0.15-1.2); Total Protein 8.1 g/dL (6.6-8.7)
[2023-02-24 21:08] LABS: Alcohol Level < 10 mg/dL (0-10)
[2023-02-24] MEDS: sodium chloride 0.9% 1,000 ML 999 ML IV (21:19)
[2023-02-24 21:30] LABS: Lactic Sepsis W/Reflex 2.3 mmol/L (0.5-2.2)
[2023-02-24 22:14] VITALS: BP 123/88; PULSE 109; RESP 16; O2SAT 96
[2023-02-24 22:26] LABS: Troponin 5 2HR 7.84 ng/L (0-10)
[2023-02-24 22:32] LABS: Troponin 5 2HR Delta 1.84 ABS# (0-10)
--- NOTE | 2023-02-24 22:41 | ECG_ITS ---
[facility] Test Date: 2023-02-24 Pat Name: Heladio Branch Department: Room: Gender: Female Vessel Captain: : 1975 Requested By: John Bernard Order Number: [id number] Adalid MD: Walter Mcmillan M.D. Measurements Intervals [place] Rate: 103 P: 33 WV: 148 QRS: 19 QRSD: 96 T: 55 QT: 347 QTc: 455 Interpretive Statements SINUS TACHYCARDIA ABNORMAL RHYTHM ECG Compared to ECG 02/24/2023 20:30:52 No significant changes Electronically Signed On 02-25-2023 14:00:06 CDT by Walter Mcmillan M.D. [id number]
[2023-02-24 22:59] LABS: Reflex Lactate Order REFLEX LACTIC ORDERD
[2023-02-24 23:33] LABS: Amphetamines Screen Urine Negative (Negative); Barbiturates Screen Urine Negative (Negative); Benzodiazepines Screen Urine Positive (Negative); Cocaine Screen Urine Negative (Negative); Opiate Screen Urine Negative (Negative); PCP Screen Urine Negative (Negative); THC Screen Urine Positive (Negative)
[2023-02-24 23:48] LABS: Add Urine Microscopic? YES; Bilirubin Urine Neg (Negative); Blood Urine 2+ (Negative); Glucose Urine UA 4+ (Normal); Ketones Urine 1+ (Negative); Leukocyte Esterase Urine Trace (Negative); Nitrate Urine Negative (Negative); Protein Urine Neg (Negative); Specific Gravity, Urine 1.015 (1.005-1.030); Urine Appearance Hazy (CLEAR); Urine Color Yellow (Yellow); Urobilinogen Urine Neg (Negative); pH Urine 5 (5-7)
[2023-02-24 23:49] LABS: Bacteria Urine 2+ /hpf; Mucus Urine 1+ /hpf; RBC Urine 0-4 /hpf (0-2)
[2023-02-24 23:50] LABS: Add Urine Culture? No
[2023-02-25] VITALS (9 sets, daily range): BP systolic 105–144; BP diastolic 72–104; PULSE 71–98; RESP 16–18; TEMP 36.3–36.7; O2SAT 95–100
[2023-02-25 00:28] LABS: Lactic Acid level (Lactate) 2.1 mmol/L (0.5-2.2)
--- NOTE | 2023-02-25 01:12 | PM.HP ---
Providers/Chief Complaint Admitting Physician: Edwina Shaw MD Primary Care Provider: Pham Jackman MD Chief Complaint: SEIZURE History of Present Illness Heladio Branch is a 47 year old female with history of hypertension diabetes DVT/PE on Eliquis depression was brought in by EMS for unresponsiveness. As per the patient she complained of severe headache this afternoon took 2 Motrin's and then sat on the porch to go out for supper. After this she does not remember what happened. As per the EMS family said she was sitting on the porch when suddenly she became unresponsive, she was shaking and had urinary incontinence. On the way to ER she had 2 more episodes of unresponsiveness. She received total of 4 mg of diazepam on route to ER. She denies any history of fever cough cold shortness of breath dizziness bowel or urinary complaints or seizure-like symptoms in the past. She reported using marijuana jellies 2 days ago. Since arrival to ER she did not have any more episodes of unresponsiveness with complaint of severe general weakness dizziness and drowsiness. She received 1 g of Keppra in the ER CT head was negative for any acute findings. Review of Systems Narrative: As per HPI Medications/Allergies Home Medications Medication Instructions Recorded Confirmed Last Taken Type albuterol sulfate 90 mcg/actuation 2 puff inhalation QID PRN 06/20/19 01/04/23 03/16/20 History aerosol inhaler (Ventolin HFA) Shortness Of Breath quetiapine 300 mg tablet 300 mg PO BEDTIME 09/17/19 01/04/23 09/20/21 History alprazolam 2 mg tablet (Xanax) 2 mg PO TID PRN Anxiety 11/16/19 01/04/23 09/20/21 History desvenlafaxine 100 mg 100 mg PO DAILY 11/16/19 01/04/23 09/21/21 History tablet,extended release 24 hr desipramine 100 mg tablet 100 mg PO DAILY 08/18/20 01/04/23 09/21/21 History aripiprazole 5 mg tablet 5 mg PO BEDTIME 12/02/20 01/04/23 09/20/21 History chlorthalidone 25 mg tablet 25 mg PO DAILY 12/02/20 01/04/23 09/21/21 History tcdzsoqd-uuvk-nirue acid 200 1 tab PO DAILY 12/02/20 01/04/23 09/20/21 History mcg-herbal no.293 37.5 mg chewable tablet (Alive Women's Gummy Vitamin) ergocalciferol (vitamin D2) 1,250 1,250 mcg PO Q7D 09/21/21 01/04/23 Unknown History mcg (50,000 unit) capsule oxcarbazepine 300 mg tablet 300 mg PO BID #30 tabs 02/23/22 01/04/23 Unknown Rx budesonide-formoterol HFA 160 1 puff inhalation BID #10.2 grams 03/03/22 01/04/23 Unknown Rx mcg-4.5 mcg/actuation aerosol inhaler (Symbicort) fexofenadine 60 mg-pseudoephedrine 1 tab PO Q12H PRN allergy symptoms 04/06/22 01/04/23 Unknown Rx ER 120 mg tablet,ext.release,12 hr #20 tabs (Ivette-D 12 Hour) promethazine 25 mg tablet 25 mg PO TID PRN nausea and 04/11/22 01/04/23 Unknown Rx vomiting #20 tabs promethazine 25 mg tablet 25 mg PO Q6H PRN nausea and 07/01/22 01/04/23 Unknown Rx vomiting #20 tabs blood sugar diagnostic (Blood #50 ea 10/25/22 01/04/23 Unknown Rx Glucose Test strips) isosorbide dinitrate 20 mg tablet See Rx Instructions .Route 10/26/22 01/04/23 Unknown Rx .COMPLEX #60 tabs fluconazole 150 mg tablet 150 mg PO DAILY #3 tabs 11/23/22 01/04/23 Unknown Rx (Diflucan) metformin 500 mg tablet 1,000 mg PO BID #120 tabs 11/28/22 01/04/23 Unknown Rx ondansetron 4 mg disintegrating See Rx Instructions .Route 12/21/22 01/04/23 Unknown Rx tablet .COMPLEX #7 tabs nystatin 100,000 unit/gram topical See Rx Instructions .Route 12/23/22 01/04/23 Unknown Rx cream .COMPLEX #40 grams ergocalciferol (vitamin D2) 1,250 See Rx Instructions .Route 12/28/22 01/04/23 Unknown Rx mcg (50,000 unit) capsule .COMPLEX #30 caps nortriptyline 50 mg capsule 50 mg PO .qhs #30 caps 01/04/23 01/04/23 Unknown Rx fenofibrate 160 mg tablet See Rx Instructions .Route 01/19/23 Unknown Rx .COMPLEX #30 tabs ferrous sulfate 325 mg (65 mg See Rx Instructions .Route 01/19/23 Unknown Rx iron) tablet (FeroSul) .COMPLEX #30 tabs omeprazole 40 mg capsule,delayed See Rx Instructions .Route 01/19/23 Unknown Rx release .COMPLEX #30 caps naproxen 500 mg tablet (Naprosyn) 500 mg PO BID PRN pain #20 tabs 01/27/23 Unknown Rx empagliflozin 25 mg tablet See Rx Instructions .Route 02/09/23 Unknown Rx (Jardiance) .COMPLEX #30 tabs apixaban 5 mg tablet (Eliquis) See Rx Instructions .Route 02/15/23 Unknown Rx .COMPLEX #60 tabs glipizide 10 mg tablet See Rx Instructions .Route 02/15/23 Unknown Rx .COMPLEX #60 tabs metoprolol tartrate 100 mg tablet See Rx Instructions .Route 02/15/23 Unknown Rx .COMPLEX #60 tabs potassium chloride 20 mEq See Rx Instructions .Route 02/15/23 Unknown Rx tablet,extended release(part/cryst) .COMPLEX #30 tabs semaglutide 0.25 mg or 0.5 mg (2 See Rx Instructions .Route 02/15/23 Unknown Rx mg/3 mL) subcutaneous pen injector .COMPLEX #3 mL (Ozempic) Allergies Allergy/AdvReac Type Severity Reaction Status Date / Time venlafaxine [From Effexor] Allergy Intermediate hives Verified 02/24/23 20:29 clonazepam [From Klonopin] Allergy Unknown Verified 02/24/23 20:29 Fish Containing Products Allergy anaphylaxis Verified 02/24/23 20:29 iodine Allergy ALGY-Anaphy Verified 02/24/23 20:29 laxis bupropion [From Wellbutrin] AdvReac Severe sucidal Verified 02/24/23 20:29 fluoxetine [From Prozac] AdvReac Severe sucidal Verified 02/24/23 20:29 topiramate [From Topamax] AdvReac Severe passing out Verified 02/24/23 20:29 lamotrigine [From Lamictal] AdvReac Mild weight gain Verified 02/24/23 20:29 duloxetine [From Cymbalta] AdvReac Unknown Bumps Verified 02/24/23 20:29 inside mouth escitalopram [From Lexapro] AdvReac Unknown Made me Verified 02/24/23 20:29 psychotic sumatriptan AdvReac ADR-Depress Verified 02/24/23 20:29 ion PFSH Acute PFSH: Medical History Chronic constipation Controlled with medications followed by her primary care provider COPD (chronic obstructive pulmonary disease) Diagnosed in 2013 and is controlled with medication COPD (chronic obstructive pulmonary disease) Depression Diagnosed at the age of 23 and has been on medication since then. She follows up with Dr. Benitez a psychiatrist and as well as therapy in [place]. She currently denies suicidal/homicidal ideation. Essential (primary) hypertension Diagnosed in 2018 and she follows up with Dr. Anderson and cardiology. Gastro-esophageal reflux disease without esophagitis Controlled with medication. H/O deep venous thrombosis Reports having a DVT in 2019 and states her warfarin dose was increased after this. She follows up with Dr. Crespo -had second DVT in 11/2019 and was taken off warfarin and is now on eliquis Obstructive sleep apnea Personal history of pulmonary embolism (~2012) States that she had a PE in 2012 and has been on warfarin since then. TIA (transient ischemic attack) Reports having had a TIA in 2019. Denies any neurological deficits. Followed by her primary care provider. Surgical History Status post conization of cervix Office LEEP procedure performed by Dr. Zelaya in 2005 for MARY-2 on Pap smear. 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 Status post knee surgery 2018-open knee surgery for torn ACL Status post left breast lumpectomy Patient reports having had 3 lumpectomies of her left breast in 1999, 2007 and 2009 for benign lesions. Family History Mother Hypertension Heart disease Grandmother Hypertension maternal and paternal Breast cancer maternal, diagnosed at age 43 Colon cancer maternal, diagnosed at age 63 Father Hypertension Grandfather Hypertension maternal and paternal Heart disease maternal Denies family history of Ovarian cancer Diabetes Uterine cancer Thyroid condition Stroke Social History Smoking and tobacco status: never smoked Second hand smoke exposure: Yes Alcohol intake: current Substance/Drug Use: current Substance/Drug use frequency: few times a month Other substance/drug use details: Medical card, gets 11 gummies/month Other details last substance use: last used 2013 per patient Lives independently: Yes Housing: House Marital status: Single Number of children: 0 service: No Current occupational status: disabled Current gender identity: Female Special tereza needs: No Agree to transfusion: Yes Vitals/I&O/Wt Last Vital Signs Temp 98.1 F 02/24/23 20:22 Pulse 94 02/25/23 00:11 Resp 16 02/25/23 00:11 BP 130/80 02/25/23 00:11 Pulse Ox 97 02/25/23 00:11 O2 Del Method Room Air 02/24/23 20:22 02/24/23 02/24/23 02/25/23 14:59 22:59 06:59 Intake Total 1110 / 1110 Balance 1110 / 1110 Weight last 48 hrs Weight 122.016 kg Physical Exam Narrative: She is drowsy but alert, oriented x3, morbidly obese, pleasant Chest clear to auscultation bilaterally Cardiovascular normal heart sounds Abdomen soft nontender nondistended normal bowel sounds Extremities no pedal edema noted, sporadic lacerations noted on bilateral lower extremities secondary to fall Data 02/24/23 19:35 02/24/23 19:35 CT Head: Radiologist's impression: No acute intracranial findings CXR: Radiologist's impression: No acute findings EKG 1: My Interpretation: Sinus tachycardia at 103 bpm, no acute ST-T elevations A&P Assessment and plan (1) Altered mental status: Plan 47-year-old female brought in by EMS for unresponsiveness and hands shaking like episode as per the family. Cannot rule out new onset seizure disorder Will monitor for 24 hours. If asymptomatic patient to follow-up with neurology as an outpatient Resume home medications Cardiac diet PUD prophylaxis with IV Pepcid 20 mg every 12 DVT prophylaxis with subcutaneous Lovenox 40 mg daily. OT PT consult in a.m. Attestations Medical Necessity Statement*: She is here for observation for seizure-like symptoms, if symptom-free will follow-up outpatient with a neurologist Time Spent in Patient Care: 25 minutes Coding Level of Care Code Acute Code for Chg Fwd Diagnoses Altered mental status R41.82 Time Spent (min) 25
--- NOTE | 2023-02-25 01:14 | PC.NURSE ---
Patient stated she was having a seizure, went into room, patient is shaking. WHen called her name, patient answered and pt stopped shaking. Stated she peed her self. DR Yo at bedside, no interventions as this time. Report called to Medicine in Practice.
[2023-02-25 01:48] LABS: Glucose Point of Care 107 mg/dL (70-110)
[2023-02-25] MEDS: famotidine 20 mg/2 mL INJ IVP ×2 (02:22→14:06)
[2023-02-25] MEDS: enoxaparin 40 mg/0.4 mL Syringe SUBCUT (02:22)
[2023-02-25 02:36] LABS: Troponin 5 6HR Delta 0 ng/L (0-12)
[2023-02-25] MEDS: acetaminophen 325 mg Tablet 650 MG PO ×2 (03:00→09:41)
[2023-02-25] MEDS: albuterol 2.5 mg/3 mL Neb INHALATION (08:15)
[2023-02-25] MEDS: budesonide 0.5 mg/2 mL Neb INHALATION (08:15)
[2023-02-25] MEDS: OXcarbazepine 300 mg Tablet PO (09:42)
[2023-02-25] MEDS: metoprolol tartrate 50 mg Tablet 100 MG PO (09:42)
[2023-02-25] MEDS: pantoprazole DR 40 mg Tablet PO (09:43)
[2023-02-25] MEDS: apixaban 5 mg Tablet PO (09:43)
[2023-02-25] MEDS: isosorbide dinitrate 20 mg Tablet PO (09:43)
[2023-02-25] MEDS: metformin 500 mg Tablet 1000 MG PO (09:43)
[2023-02-25] MEDS: desvenlafaxine 50 mg Tablet 100 MG PO (09:44)
[2023-02-25] MEDS: chlorthalidone 25 mg Tablet PO (09:44)
[2023-02-25 09:59] LABS: Glucose Point of Care 91 mg/dL (70-110)
--- NOTE | 2023-02-25 17:35 | P.DS_ITS ---
Discharge Providers Date of Admission: 02/25/23 00:35 Date of Discharge: February 25, 2023 Attending Provider at Admission: Edwina Shaw MD Attending Provider at Discharge: Jessica Chua MD Primary Care Provider: Pham Jackman MD Diagnoses at Discharge Discharge Diagnosis (1) Altered mental status: Status: Acute Reason for Visit Reason for Visit: SEIZURE Brief History: Heladio Branch is a 47 year old female with history of hypertension diabetes DVT/PE on Eliquis depression was brought in by EMS for unresponsiveness.?As per the patient she complained of severe headache this afternoon took 2 Motrin's and then sat on the porch to go out for supper.? After this she does not remember what happened.? As per the EMS family said she was sitting on the porch when suddenly she became unresponsive, she was shaking and had urinary incontinence.? On the way to ER she had 2 more episodes of unresponsiveness.? She received total of 4 mg of diazepam on route to ER. Reviewing her outpatient medical records it appears patient has been undergoing evaluation for migraine with complaints of headache visual disturbances, and episodes of syncope versus seizures as outpatient. She has vomited a few times during these prior episodes. She has been undergoing evaluation at [facility]. In November 2022 she underwent MRI and echocardiogram which were normal per review of PCPs note. Documents not available for direct review today. Patient also reports that she has had EEG monitoring in the past with Dr. Marroquin which was reportedly normal. She has not followed with neurology in many years, states that she is waiting on a follow-up with Dr. Lois gunderson. States that she has had Holter monitoring also in the past for these episodes. I am able to see results of 1 such monitoring from 2019 which showed baseline rhythm sinus tachycardia with a heart rate average of 112 bpm. There were no significant bradycardic events and no significant arrhythmias. Review of nursing notes from the ER shows that at around 1 AM patient started taking and called the nurse in to see that she was having a seizure. When called her name patient answered and apparently was having a conversation and eventually stopped shaking. Since this was not a true seizure no other interventions were performed at that time. CT of the head was normal. She has been ambulating in the room today, states that earlier she felt like her legs were giving way from under her but now feels more steady. She has a walker at home and is counseled to use the same. She received a loading dose of Keppra 1 g in the emergency room last night, however this has not been continued at the time of discharge as her symptoms did not appear to be true seizures. Discussed with her that all appropriate seizure/syncope work-up has been ordered as an outpatient and is being monitored by her primary care physician closely. She has been referred to neurology and encouraged her to keep this appointment for further evaluation of her symptoms. Chief differential at this time is complex migraine. Currently denies any headache at the time of discharge.. Eager to return home. Physical Exam Narrative: General: No acute distress, AO x3 HEENT: PERRLA, pupils bilaterally equal and reactive, pallors not present Chest: Normal vesicular breath sounds, no added sounds, equal good air entry bilaterally CVS: S1-S2 regular, no murmurs, no tachycardia, no gallops, no rubs Abdomen: Soft, nontender, no organomegaly, bowel sounds present Neuro: No focal deficits, no facial deformity, AO x3, power 5/5 in all limbs Discharge Data Studies Completed and Pending Completed Studies During Hospitalization Category Date Time Status CT head wo con* [id number] Stat Cat Scan 02/24/23 20:39 Completed XR chest 1V portable [id number] Stat Exams 02/24/23 20:39 Completed Radiology Impressions Chest X-Ray 02/24/23 20:39 IMPRESSION: No acute cardiopulmonary findings. Head CT 02/24/23 20:39 IMPRESSION: 1. No acute intracranial findings. 2. Other chronic/incidental findings as described above. Laboratory Results WBC 8.50 10^3/uL (3.29-11.43) 02/24/23 19:35 RBC 5.38 10^6/uL (3.85-5.65) 02/24/23 19:35 Hgb 15.60 g/dL (11.27-16.99) 02/24/23 19:35 Hct 48.4 % (36-47) H 02/24/23 19:35 MCV 90.0 fl (85-98) 02/24/23 19:35 MCH 29.0 pg (27-33) 02/24/23 19:35 MCHC 32.2 g/dL (30-55) 02/24/23 19:35 RDW 13.2 % (12.1-15.1) 02/24/23 19:35 Plt Count 412 10^3/cmm (157-399) H 02/24/23 19:35 MPV 10.8 fL (7.4-10.4) H 02/24/23 19:35 Neut % (Auto) 43.7 % 02/24/23 19:35 Lymph % (Auto) 45.6 % 02/24/23 19:35 [place] % (Auto) 9.3 % 02/24/23 19:35 Eos % (Auto) 0.5 % 02/24/23 19:35 Baso % (Auto) 0.5 % 02/24/23 19:35 Neut # (Auto) 3.72 10^3/uL (1.8-7.7) 02/24/23 19:35 Lymph # (Auto) 3.9 10^3/uL (0.8-4.8) 02/24/23 19:35 [place] # (Auto) 0.8 10^3/uL (0.2-0.9) 02/24/23 19:35 Eos # (Auto) 0.0 10^3/uL (0.0-0.8) 02/24/23 19:35 Baso # (Auto) 0.0 10^3/uL (0.0-0.1) 02/24/23 19:35 Nucleated RBC % (auto) 0 % 02/24/23 19:35 Nucleated RBCs # 0.0 /100WBC 02/24/23 19:35 PT 12.30 SECONDS (12.1-14.9) 02/24/23 19:35 INR 0.89 (0.8-1.2) 02/24/23 19:35 APTT 30.0 SECONDS (23.9-36.7) 02/24/23 19:35 Sodium 138 mmol/L (136-145) 02/24/23 19:35 Potassium 4.6 mmol/L (3.5-5.1) 02/24/23 19:35 Chloride 98 mmol/L (98-107) 02/24/23 19:35 Carbon Dioxide 23 mmol/L (22-29) 02/24/23 19:35 Anion Gap 21.6 (5-19) H 02/24/23 19:35 BUN 15 mg/dL (6-20) 02/24/23 19:35 Creatinine 1.3 mg/dL (0.5-0.9) H 02/24/23 19:35 GFR Calculation 44.3 mL/min (90-130) L 02/24/23 19:35 Glucose 86 mg/dL (65-115) 02/24/23 19:35 POC Glucose 91 mg/dL (70-110) 02/25/23 09:55 Calculated Osmolality 286 mOsm/kg (285-295) 02/24/23 19:35 Lactic Acid 2.3 mmol/L (0.5-2.2) H 02/24/23 21:11 Lactic Acid (Sepsis) 2.1 mmol/L (0.5-2.2) 02/25/23 00:04 Calcium 10.3 mg/dL (8.5-10.5) 02/24/23 19:35 Phosphorus 2.6 mg/dL (2.5-4.5) 02/24/23 19:35 Magnesium 1.8 mg/dL (1.7-2.3) 02/24/23 19:35 Total Bilirubin 0.2 mg/dL (0.15-1.2) 02/24/23 19:35 AST 30 U/L (0-32) 02/24/23 19:35 ALT 36 U/L (0-33) H 02/24/23 19:35 Alkaline Phosphatase 55 U/L (35-105) 02/24/23 19:35 Creatine Kinase 42 U/L (26-192) 02/24/23 19:35 Troponin T Baseline 6 ng/L (0-10) 02/24/23 19:35 Troponin T 120 Minute 7.84 ng/L (0-10) 02/24/23 21:56 Delta Troponin T 1.84 ABS# (0-10) 02/24/23 21:56 Troponin T Hi Sens 6Hr 6.00 ng/L (0-10) 02/25/23 01:55 Troponin T Hi Sens 6Hr Delta 0 ng/L (0-12) 02/25/23 01:55 Total Protein 8.1 g/dL (6.6-8.7) 02/24/23 19:35 Albumin 5.1 g/dL (3.5-5.2) 02/24/23 19:35 Globulin 3.0 g/dL (1.3-4.6) 02/24/23 19:35 HCG, Qual Negative (Negative) 02/24/23 19:35 Urine Color Yellow (Yellow) 02/24/23 22:36 Urine Appearance Hazy (CLEAR) A 02/24/23 22:36 Urine pH 5 (5-7) 02/24/23 22:36 Ur Specific [place] 1.015 (1.005-1.030) 02/24/23 22:36 Urine Protein Neg (Negative) 02/24/23 22:36 Urine Glucose (UA) 4+ (Normal) H 02/24/23 22:36 Urine Ketones 1+ (Negative) H 02/24/23 22:36 Urine Blood 2+ (Negative) H 02/24/23 22:36 Urine Nitrate Negative (Negative) 02/24/23 22:36 Urine Bilirubin Neg (Negative) 02/24/23 22:36 Urine Urobilinogen Neg mg/dL (Negative) 02/24/23 22:36 Ur Leukocyte Esterase Trace (Negative) H 02/24/23 22:36 Urine RBC 0-4 /hpf (0-2) H 02/24/23 22:36 Urine WBC 5-10 /hpf (0-5) H 02/24/23 22:36 Ur Squamous Epith Cells 10-15 /hpf (0-5) H 02/24/23 22:36 Amorphous Sediment Not Reportable 02/24/23 22:36 Urine Bacteria 2+ /hpf (NONE) H 02/24/23 22:36 Urine Mucus 1+ /hpf 02/24/23 22:36 Urine Yeast 1+ /hpf H 02/24/23 22:36 Urine Opiates Screen Negative ng/mL (Negative) 02/24/23 22:36 Ur Barbiturates Screen Negative ng/mL (Negative) 02/24/23 22:36 Carbamazepine 2.0 ug/mL (4.0-12.0) L 02/24/23 19:35 Ur Phencyclidine Scrn Negative ng/mL (Negative) 02/24/23 22:36 Ur Amphetamines Screen Negative ng/mL (Negative) 02/24/23 22:36 U Benzodiazepines Scrn Positive ng/mL (Negative) H 02/24/23 22:36 Urine Cocaine Screen Negative ng/mL (Negative) 02/24/23 22:36 U Marijuana (THC) Screen Positive ng/mL (Negative) H 02/24/23 22:36 Ethyl Alcohol < 10 mg/dL (0-10) 02/24/23 19:35 Vitals Last Vital Signs Temp 98 F 02/25/23 15:33 Pulse 86 02/25/23 15:33 Resp 16 02/25/23 15:33 BP 107/74 02/25/23 15:33 Pulse Ox 95 02/25/23 15:33 O2 Del Method Room Air 02/25/23 11:40 Discharge Plan Discharge Patient Disposition: Home Condition: Stable Prescriptions: Continued albuterol sulfate [Ventolin HFA] 90 mcg/actuation HFA aerosol inhaler 2 puff INHALATION QID PRN (Reason: Shortness Of Breath) quetiapine 300 mg tablet 900 mg PO BEDTIME oxcarbazepine 300 mg tablet 300 mg PO BID Qty: 30 0RF fexofenadine-pseudoephedrine [Ivette-D 12 Hour] 60-120 mg tablet extended release 12 hr 1 tab PO Q12H PRN (Reason: allergy symptoms) Qty: 20 0RF (DME) Blood Glucose Test Strip See Rx Instructions .Route Qty: 50 1RF Rx Instructions: As directed isosorbide dinitrate 20 mg tablet See Rx Instructions .ROUTE .COMPLEX Qty: 60 3RF Dose Instruction: TAKE ONE TABLET BY MOUTH TWICE DAILY Rx Instructions: TAKE ONE TABLET BY MOUTH TWICE DAILY metformin 500 mg tablet 1,000 mg PO BID Qty: 120 0RF Rx Instructions: 1,000 mg orally twice a dAY ondansetron 4 mg tablet,disintegrating See Rx Instructions .ROUTE .COMPLEX Qty: 7 0RF Dose Instruction: DISSOLVE ONE TABLET in MOUTH EVERY 8 HOURS NEEDED Rx Instructions: DISSOLVE ONE TABLET in MOUTH EVERY 8 HOURS NEEDED nystatin 100,000 unit/gram cream See Rx Instructions .ROUTE .COMPLEX Qty: 40 3RF Dose Instruction: APPLY ONE application topically TWICE DAILY NEEDED Rx Instructions: APPLY ONE application topically TWICE DAILY NEEDED omeprazole 40 mg capsule,delayed release(DR/EC) See Rx Instructions .ROUTE .COMPLEX Qty: 30 2RF Dose Instruction: TAKE ONE CAPSULE BY MOUTH ONCE DAILY Rx Instructions: TAKE ONE CAPSULE BY MOUTH ONCE DAILY ferrous sulfate [FeroSul] 325 mg (65 mg iron) tablet See Rx Instructions .ROUTE .COMPLEX Qty: 30 2RF Dose Instruction: TAKE ONE TABLET BY MOUTH EVERY MORNING Rx Instructions: TAKE ONE TABLET BY MOUTH EVERY MORNING fenofibrate 160 mg tablet See Rx Instructions .ROUTE .COMPLEX Qty: 30 2RF Dose Instruction: TAKE ONE TABLET BY MOUTH DAILY Rx Instructions: TAKE ONE TABLET BY MOUTH DAILY potassium chloride 20 mEq tablet,ER particles/crystals See Rx Instructions .ROUTE .COMPLEX Qty: 30 0RF Dose Instruction: TAKE ONE TABLET BY MOUTH ONCE a DAY with food Rx Instructions: TAKE ONE TABLET BY MOUTH ONCE a DAY with food Ozempic 0.25 mg or 0.5 mg (2 mg/3 mL) pen injector See Rx Instructions .ROUTE .COMPLEX Qty: 3 1RF Dose Instruction: inject 0.5mg SUBCUTANEOUSLY ONCE WEEKLY Rx Instructions: inject 0.5mg SUBCUTANEOUSLY ONCE WEEKLY metoprolol tartrate 100 mg tablet See Rx Instructions .ROUTE .COMPLEX Qty: 60 2RF Dose Instruction: TAKE ONE TABLET BY MOUTH TWICE DAILY with food Rx Instructions: TAKE ONE TABLET BY MOUTH TWICE DAILY with food glipizide 10 mg tablet See Rx Instructions .ROUTE .COMPLEX Qty: 60 3RF Dose Instruction: TAKE ONE TABLET BY MOUTH TWICE DAILY Rx Instructions: TAKE ONE TABLET BY MOUTH TWICE DAILY WITH MEALS alprazolam [Xanax] 2 mg Tablet 2 mg PO TID PRN (Reason: Anxiety) desipramine 100 mg tablet 100 mg PO DAILY aripiprazole 5 mg tablet 5 mg PO BEDTIME ergocalciferol (vitamin D2) 1,250 mcg (50,000 unit) capsule 1,250 mcg PO Q7D Eliquis 5 mg Tablet 5 mg PO BID Jardiance 25 mg Tablet 25 mg PO DAILY Discharge Orders: Discharge Order (Routine); Ordered 02/25/23 Ordered By: Kris Walters Referrals: Pham Jackman MD [Primary Care Provider] - (We have notified your physician's clinic of the need for a follow-up appointment to be scheduled. If you have not heard from them within the next 2 business days, please call them directly. You may also reach out to our carbon capture power plant manager at [phone] and she can assist you.) James Abreu MD [Referring] - 1 week Discharge Diet: Usual diet Discharge Activity: Resume usual activity Patient Instructions: Altered Mental Status (GEN), Opioid Safety Discharge Attestations Time Spent in Discharge Care*: greater than 30 min Quality Metrics Clinical Quality Measures [ No reported AMI, CVA or VTE this stay] Coding Level of Care Code Acute Code for Chg Fwd Diagnoses Altered mental status R41.82
== END 2023-02-25 15:34 | disposition home or self-care (01) ==
LOC: ER 02-25 00:41 → MEDSURG 02-25 01:06
PROVIDERS: Admitting Provider Internal Medicine; Emergency Provider Emergency Medicine; PCP Family Medicine; Visit Provider Student in an Organized Health Care Education/Training Program
DX: R41.82 Altered mental status, unspecified (principal); I10 Essential (primary) hypertension; E11.9 Type 2 diabetes mellitus without complications; Z86.718 Personal history of other venous thrombosis and embolism; Z79.01 Long term (current) use of anticoagulants; G47.33 Obstructive sleep apnea (adult) (pediatric)
CPT/HCPCS: 36415; 36416; 70450; 71045; 80053; 80156; 80306; 80307; 81001; 82550; 82962; 83605; 83735; 84100; 84484; 84703; 85025; 85610; 85730; 93005; 94640; 96365; 96372; 99285; G0378; J1650; J1953; J3490; J7030; J7613; J7626

== ENCOUNTER 2023-03-15 19:29 | Emergency (ER) | payer MEDICARE, MEDICAID, SELFPAY ==
[2023-03-15 19:30] VITALS: BP 129/80; PULSE 76; RESP 18; TEMP 36.7; O2SAT 98; BMI 46.3
--- NOTE | 2023-03-15 19:41 | CTR_ITS ---
PROCEDURE INFORMATION: Exam: CT Head Without Contrast Exam date and time: 03/15/2023 7:51 PM Age: 47 years old Clinical indication: Injury or trauma; Fall; Blunt trauma (contusions or hematomas); Additional info: Head injury TECHNIQUE: Imaging protocol: Computed tomography of the head without contrast. Radiation optimization: All CT scans at this facility use at least one of these dose optimization techniques: automated exposure control; mA and/or kV adjustment per patient size (includes targeted exams where dose is matched to clinical indication); or iterative reconstruction. REPORTING DATA: Count of CT and Cardiac NM exams in prior 12 months: This patient has received 6 known CTs and 0 known cardiac nuclear medicine studies in the 12 months prior to the current study. COMPARISON: CT head wo con* [id number] 02/24/2023 8:50 PM RADIATION DOSE METRICS: Total DLP (mGy-cm): 978 FINDINGS: Brain: No focal hemorrhage or midline shift is identified. The ventricles and parenchyma show mild atrophy and chronic bicerebral white matter ischemic change. Cerebral ventricles: No ventriculomegaly or evidence of hydrocephalus. Paranasal sinuses: No evidence of acute sinusitis. Mastoid air cells: Visualized mastoid air cells are well aerated. Bones/joints: No displaced skull fracture is noted. Soft tissues: Right frontotemporal scalp prominence again seen. Vasculature: Diffuse vascular calcifications are present. CT/CT head wo con* [id number] IMPRESSION: 1. No acute intracranial abnormality. 2. Mild age-related changes.
--- NOTE | 2023-03-15 19:42 | ED_ITS ---
HPI - Seizure General: Chief Complaint: Seizure Stated Complaint: FALL Time Seen by Provider: 03/15/23 19:33 Source: patient and EMS Mode of arrival: EMS Limitations: no limitations History of Present Illness: HPI Narrative: 47-year-old female recently diagnosed with possible seizures she states she has been prescribed Lamictal but has not started it yet is planning to fill her prescription tomorrow states that this evening she had woken up on the floor believe that she had another seizure she states she thinks she hit her head because she does have a posterior headache she denies any chest pain she is has no weakness currently or focal deficits. Associated symptoms: Deny chest pain, chills or fever(s) Review of Systems Const: Denies: fever(s), chills, body aches or change in appetite Eyes: Denies: blurry vision or eye discomfort ENMT: Denies: throat pain or dental pain Card: Denies: chest pain Resp: Denies: dyspnea GI: Denies: abdominal pain, nausea, vomiting or diarrhea : Denies: dysuria Musc: Denies: neck pain or back pain Skin/Breast: Denies: rash Neuro: Reports: headache(s) [facility] ED PFSH: Medical History Chronic constipation Controlled with medications followed by her primary care provider COPD (chronic obstructive pulmonary disease) Diagnosed in 2013 and is controlled with medication COPD (chronic obstructive pulmonary disease) Depression Diagnosed at the age of 23 and has been on medication since then. She follows up with Dr. Benitez a psychiatrist and as well as therapy in [place]. She currently denies suicidal/homicidal ideation. Essential (primary) hypertension Diagnosed in 2019 and she follows up with Dr. Anderson and cardiology. Gastro-esophageal reflux disease without esophagitis Controlled with medication. H/O deep venous thrombosis Reports having a DVT in 2019 and states her warfarin dose was increased after this. She follows up with Dr. Crespo -had second DVT in 11/2019 and was taken off warfarin and is now on eliquis Obstructive sleep apnea Personal history of pulmonary embolism (~2012) States that she had a PE in 2012 and has been on warfarin since then. TIA (transient ischemic attack) Reports having had a TIA in 2019. Denies any neurological deficits. Followed by her primary care provider. Surgical History Status post conization of cervix Office LEEP procedure performed by Dr. Zelaya in 2006 for MARY-2 on Pap smear. 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 Status post knee surgery 2018-open knee surgery for torn ACL Status post left breast lumpectomy Patient reports having had 3 lumpectomies of her left breast in 1999, 2007 and 2009 for benign lesions. Family History Mother Hypertension Heart disease Grandmother Hypertension maternal and paternal Breast cancer maternal, diagnosed at age 43 Colon cancer maternal, diagnosed at age 63 Father Hypertension Grandfather Hypertension maternal and paternal Heart disease maternal Denies family history of Ovarian cancer Diabetes Uterine cancer Thyroid condition Stroke Social History Smoking and tobacco status: never smoked Second hand smoke exposure: Yes Alcohol intake: current Substance/Drug Use: current Substance/Drug use frequency: few times a month Other substance/drug use details: Medical card, gets 11 gummies/month Other details last substance use: last used 2013 per patient Lives independently: Yes Housing: House Marital status: Single Number of children: 0 service: No Current occupational status: disabled Current gender identity: Female Special tereza needs: No Agree to transfusion: Yes Physical Exam Const: COMMON NORMALS: no acute distress, patient oriented x3 and healthy appearing HENMT: COMMON NORMALS: normocephalic and atraumatic HEAD & SCALP: normocephalic and atraumatic Neck/C-Spine: COMMON NORMALS: full ROM and supple Chest: COMMONS NORMALS: normal inspection of the chest and normal palpation of entire chest wall Resp: COMMON NORMALS: normal respiratory effort, No retractions, No use of accessory muscles and clear to auscultation bilaterally AUSCULTATION: clear to auscultation bilaterally Cardio: COMMON NORMALS: regular rate, regular rhythm and No murmurs present (Cardio) RATE: regular rate RHYTHM: regular rhythm GI: COMMON NORMALS: Normal to inspection, nondistended, normoactive bowel sounds present, Soft to palpation, non-tender and no masses PALPATION: Yes Soft to palpation Extremity: COMMON NORMALS: normal to inspection and full ROM Neuro: COMMON NORMALS: patient oriented x3, moves all extremities and no focal motor deficits Psych: COMMON NORMALS: mental status grossly normal, Normal thought process present and cooperative THOUGHT PROCESS: Normal thought process present Skin: COMMON NORMALS: no rashes or lesions noted and no wounds GENERAL SKIN EXAM: no rashes or lesions noted Course Vital Signs: Vital signs: Vital Signs Temperature 98.0 F 03/15/23 19:30 Pulse Rate 98 03/15/23 21:09 Respiratory Rate 18 03/15/23 21:09 Blood Pressure 132/81 03/15/23 21:09 Pulse Oximetry 97 03/15/23 21:09 Oxygen Delivery Me thod Room Air 03/15/23 20:12 MDM - Seizure MDM Narrative Medical decision making narrative: Patient presents here with a possible seizure she did hit her head head CT here is normal blood works all normal she is to start her Lamictal she is to follow- up with Cara as scheduled she is return if worsening she understands agrees to plan. Lab Data 03/15/23 19:38 03/15/23 20:30 Labs: Radiology Impressions Head CT 03/15/23 19:41 IMPRESSION: 1. No acute intracranial abnormality. 2. Mild age-related changes. Laboratory Results WBC 7.68 10^3/uL (3.29-11.43) 03/15/23 19:38 RBC 4.91 10^6/uL (3.85-5.65) 03/15/23 19:38 Hgb 14.40 g/dL (11.27-16.99) 03/15/23 19:38 Hct 44.2 % (36-47) 03/15/23 19:38 MCV 90.0 fl (85-98) 03/15/23 19:38 MCH 29.3 pg (27-33) 03/15/23 19:38 MCHC 32.6 g/dL (30-55) 03/15/23 19:38 RDW 13.4 % (12.1-15.1) 03/15/23 19:38 Plt Count 414 10^3/cmm (157-399) H 03/15/23 19:38 MPV 11.0 fL (7.4-10.4) H 03/15/23 19:38 Neut % (Auto) 44.8 % 03/15/23 19:38 Lymph % (Auto) 45.4 % 03/15/23 19:38 [place] % (Auto) 8.6 % 03/15/23 19:38 Eos % (Auto) 0.4 % 03/15/23 19:38 Baso % (Auto) 0.5 % 03/15/23 19:38 Neut # (Auto) 3.44 10^3/uL (1.8-7.7) 03/15/23 19:38 Lymph # (Auto) 3.5 10^3/uL (0.8-4.8) 03/15/23 19:38 [place] # (Auto) 0.7 10^3/uL (0.2-0.9) 03/15/23 19:38 Eos # (Auto) 0.0 10^3/uL (0.0-0.8) 03/15/23 19: Baso # (Auto) 0.0 10^3/uL (0.0-0.1) 03/15/23 19:38 Nucleated RBC % (auto) 0 % 03/15/23 19:38 Nucleated RBCs # 0.0 /100WBC 03/15/23 19:38 Sodium 142 mmol/L (136-145) 03/15/23 20:30 Potassium 4.3 mmol/L (3.5-5.1) 03/15/23 20:30 Chloride 104 mmol/L (98-107) 03/15/23 20:30 Carbon Dioxide 28 mmol/L (22-29) 03/15/23 20:30 Anion Gap 14.3 (5-19) 03/15/23 20:30 BUN 15 mg/dL (6-20) 03/15/23 20:30 Creatinine 1.2 mg/dL (0.5-0.9) H 03/15/23 20:30 GFR Calculation 48.6 mL/min (90-130) L 03/15/23 20:30 Glucose 78 mg/dL (65-115) 03/15/23 20:30 Calculated Osmolality 294 mOsm/kg (285-295) 03/15/23 20:30 Calcium 9.4 mg/dL (8.5-10.5) 03/15/23 20:30 Total Bilirubin 0.2 mg/dL (0.15-1.2) 03/15/23 20:30 AST 26 U/L (0-32) 03/15/23 20:30 ALT 19 U/L (0-33) 03/15/23 20:30 Alkaline Phosphatase 43 U/L (35-105) 03/15/23 20:30 Total Protein 7.0 g/dL (6.6-8.7) 03/15/23 20:30 Albumin 4.1 g/dL (3.5-5.2) 03/15/23 20:30 Globulin 2.9 g/dL (1.3-4.6) 03/15/23 20:30 All radiology interpretation(s) finalized by discharge EKG Data EKG 1: Attestation: I personally reviewed and interpreted this EKG as follows: EKG interpretation date: 03/15/23 EKG interpretation time: 19:40 Interpretation: nsr hr [address] or t wave abnormalities qrs 106 qtc 411 Discharge Plan Discharge Patient Disposition: Home Clinical Impression: Seizure, Closed head injury Condition: Stable Prescriptions: No Action albuterol sulfate [Ventolin HFA] 90 mcg/actuation HFA aerosol inhaler 2 puff INHALATION QID PRN (Reason: Shortness Of Breath) quetiapine 300 mg tablet 900 mg PO BEDTIME oxcarbazepine 300 mg tablet 300 mg PO BID Qty: 30 0RF levetiracetam [Keppra] 500 mg tablet 500 mg PO BID Qty: 60 2RF fexofenadine-pseudoephedrine [Ivette-D 12 Hour] 60-120 mg tablet extended release 12 hr 1 tab PO Q12H PRN (Reason: allergy symptoms) Qty: 20 0RF (DME) Blood Glucose Test Strip See Rx Instructions .Route Qty: 50 1RF Rx Instructions: As directed isosorbide dinitrate 20 mg tablet See Rx Instructions .ROUTE .COMPLEX Qty: 60 3RF Dose Instruction: TAKE ONE TABLET BY MOUTH TWICE DAILY Rx Instructions: TAKE ONE TABLET BY MOUTH TWICE DAILY ondansetron 4 mg tablet,disintegrating See Rx Instructions .ROUTE .COMPLEX Qty: 7 0RF Dose Instruction: DISSOLVE ONE TABLET in MOUTH EVERY 8 HOURS NEEDED Rx Instructions: DISSOLVE ONE TABLET in MOUTH EVERY 8 HOURS NEEDED nystatin 100,000 unit/gram cream See Rx Instructions .ROUTE .COMPLEX Qty: 40 3RF Dose Instruction: APPLY ONE application topically TWICE DAILY NEEDED Rx Instructions: APPLY ONE application topically TWICE DAILY NEEDED omeprazole 40 mg capsule,delayed release(DR/EC) See Rx Instructions .ROUTE .COMPLEX Qty: 30 2RF Dose Instruction: TAKE ONE CAPSULE BY MOUTH ONCE DAILY Rx Instructions: TAKE ONE CAPSULE BY MOUTH ONCE DAILY ferrous sulfate [FeroSul] 325 mg (65 mg iron) tablet See Rx Instructions .ROUTE .COMPLEX Qty: 30 2RF Dose Instruction: TAKE ONE TABLET BY MOUTH EVERY MORNING Rx Instructions: TAKE ONE TABLET BY MOUTH EVERY MORNING fenofibrate 160 mg tablet See Rx Instructions .ROUTE .COMPLEX Qty: 30 2RF Dose Instruction: TAKE ONE TABLET BY MOUTH DAILY Rx Instructions: TAKE ONE TABLET BY MOUTH DAILY potassium chloride 20 mEq tablet,ER particles/crystals See Rx Instructions .ROUTE .COMPLEX Qty: 30 0RF Dose Instruction: TAKE ONE TABLET BY MOUTH ONCE a DAY with food Rx Instructions: TAKE ONE TABLET BY MOUTH ONCE a DAY with food Ozempic 0.25 mg or 0.5 mg (2 mg/3 mL) pen injector See Rx Instructions .ROUTE .COMPLEX Qty: 3 1RF Dose Instruction: inject 0.5mg SUBCUTANEOUSLY ONCE WEEKLY Rx Instructions: inject 0.5mg SUBCUTANEOUSLY ONCE WEEKLY metoprolol tartrate 100 mg tablet See Rx Instructions .ROUTE .COMPLEX Qty: 60 2RF Dose Instruction: TAKE ONE TABLET BY MOUTH TWICE DAILY with food Rx Instructions: TAKE ONE TABLET BY MOUTH TWICE DAILY with food glipizide 10 mg tablet See Rx Instructions .ROUTE .COMPLEX Qty: 60 3RF Dose Instruction: TAKE ONE TABLET BY MOUTH TWICE DAILY Rx Instructions: TAKE ONE TABLET BY MOUTH TWICE DAILY WITH MEALS metformin 500 mg tablet See Rx Instructions .ROUTE .COMPLEX Qty: 120 2RF Dose Instruction: TAKE TWO TABLETS BY MOUTH TWICE DAILY Rx Instructions: TAKE TWO TABLETS BY MOUTH TWICE DAILY alprazolam [Xanax] 2 mg Tablet 2 mg PO TID PRN (Reason: Anxiety) desipramine 100 mg tablet 100 mg PO DAILY ergocalciferol (vitamin D2) 1,250 mcg (50,000 unit) capsule 1,250 mcg PO Q7D Eliquis 5 mg Tablet 5 mg PO BID Jardiance 25 mg Tablet 25 mg PO DAILY Discharge Orders: Discharge ED (Routine); Ordered 03/15/23 Ordered By: Milagros Pat Referrals: Charmaine Marroquin MD [Physician] - 1-3 days Pham Jackman MD [Primary Care Provider] - Discharge Diet: Advance as tolerated Discharge Activity: Resume usual activity Patient Instructions: Generalized Tonic Clonic Seizures (ED) Coding Level of Care Code ED Operator [employer] Support Systems for Marci Helms
[2023-03-15 19:48] LABS: Basophils % 0.5 %; Eosinophils % 0.4 %; Hematocrit 44.2 % (36-47); Lymphocytes # 3.5 10^3/uL (0.8-4.8); Lymphocytes % 45.4 %; Mean Corpuscular HGB Conc 32.6 g/dL (30-55); Mean Corpuscular Hemoglobin 29.3 pg (27-33); Monocytes # 0.7 10^3/uL (0.2-0.9); Monocytes % 8.6 %; Neutrophils # 3.44 10^3/uL (1.8-7.7); Neutrophils % 44.8 %; Nucleated Red Blood Cells % 0 %; Platelet Count 414 10^3/cmm (157-399); Red Blood Count 4.91 10^6/uL (3.85-5.65); Red Cell Distribution Width 13.4 % (12.1-15.1); White Blood Count 7.68 10^3/uL (3.29-11.43)
[2023-03-15 20:12] VITALS: BP 118/79; PULSE 74; RESP 18; O2SAT 95
[2023-03-15 20:53] LABS: Alanine Aminotransferase 19 U/L (0-33); Albumin Level 4.1 g/dL (3.5-5.2); Alkaline Phosphatase 43 U/L (35-105); Anion Gap 14.3 (5-19); Aspartate Amino Transferase 26 U/L (0-32); Blood Urea Nitrogen 15 mg/dL (6-20); Calcium 9.4 mg/dL (8.5-10.5); Carbon Dioxide 28 mmol/L (22-29); Chloride 104 mmol/L (98-107); Globulin 2.9 g/dL (1.3-4.6); Glomerular Filtration Rate 48.6 mL/min (90-130); Glucose 78 mg/dL (65-115); Osmolality Calculated 294 mOsm/kg (285-295); Potassium 4.3 mmol/L (3.5-5.1); Sodium 142 mmol/L (136-145); Total Bilirubin 0.2 mg/dL (0.15-1.2)
[2023-03-15 21:09] VITALS: BP 132/81; PULSE 98; RESP 18; O2SAT 97
== END 2023-03-15 21:09 | disposition home or self-care (01) ==
PROVIDERS: Emergency Provider Emergency Medicine; PCP Family Medicine
DX: R56.9 Unspecified convulsions (principal); S09.8XXA Other specified injuries of head, initial encounter; Z79.01 Long term (current) use of anticoagulants; Z79.84 Long term (current) use of oral hypoglycemic drugs; Z77.22 Contact with and (suspected) exposure to environmental tobacco smoke (acute) (chronic); J44.9 Chronic obstructive pulmonary disease, unspecified; I10 Essential (primary) hypertension; Z86.73 Personal history of transient ischemic attack (TIA), and cerebral infarction without residual deficits; Z87.891 Personal history of nicotine dependence; W22.8XXA Striking against or struck by other objects, initial encounter
CPT/HCPCS: 36415; 70450; 80053; 85025; 96365; 99285; J1953

== ENCOUNTER 2023-04-05 17:41 | Emergency (ER) | payer MEDICARE, MEDICAID, SELFPAY ==
[2023-04-05 17:44] VITALS: BP 118/98; PULSE 88; RESP 18; TEMP 36.6; O2SAT 96; BMI 47.2
--- NOTE | 2023-04-05 18:16 | W.ED.SEIZURE ---
HPI - Seizure General: Chief Complaint: Seizure Stated Complaint: Seizure Time Seen by Provider: 04/05/23 17:51 Source: patient and EMS Mode of arrival: EMS Limitations: no limitations History of Present Illness: HPI Narrative: 47-year-old female states she been having seizures over the last month she had had a full work-up with a negative head CT she is scheduled to see neurology in April states she is at a office today and had a seizure she states it was just one seizure she has been taking her Keppra she denies any headache denies hitting her head Associated symptoms: Deny chest pain, chills or fever(s) Review of Systems Const: Denies: fever(s), chills, body aches or change in appetite Eyes: Denies: blurry vision or eye discomfort ENMT: Denies: throat pain or dental pain Card: Denies: chest pain Resp: Denies: dyspnea GI: Denies: abdominal pain, nausea, vomiting or diarrhea : Denies: dysuria Musc: Denies: neck pain or back pain Skin/Breast: Denies: rash Neuro: Reports: seizure-like activity; Denies: headache(s) Psych: Denies: depression Ander/Lymph: Denies: easy bruising All/Imm: Denies: urticaria PFSH ED PFSH: Medical History Chronic constipation Controlled with medications followed by her primary care provider COPD (chronic obstructive pulmonary disease) Diagnosed in 2013 and is controlled with medication COPD (chronic obstructive pulmonary disease) Depression Diagnosed at the age of 23 and has been on medication since then. She follows up with Dr. Benitez a psychiatrist and as well as therapy in [place]. She currently denies suicidal/homicidal ideation. Essential (primary) hypertension Diagnosed in 2019 and she follows up with Dr. Anderson and cardiology. Gastro-esophageal reflux disease without esophagitis Controlled with medication. H/O deep venous thrombosis Reports having a DVT in 2019 and states her warfarin dose was increased after this. She follows up with Dr. Crespo -had second DVT in 11/2019 and was taken off warfarin and is now on eliquis Obstructive sleep apnea Personal history of pulmonary embolism (~2012) States that she had a PE in 2012 and has been on warfarin since then. TIA (transient ischemic attack) Reports having had a TIA in 2019. Denies any neurological deficits. Followed by her primary care provider. Surgical History Status post conization of cervix Office LEEP procedure performed by Dr. Zelaya in 2005 for MARY-2 on Pap smear. 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 Status post knee surgery 2018-open knee surgery for torn ACL Status post left breast lumpectomy Patient reports having had 3 lumpectomies of her left breast in 1999, 2007 and 2009 for benign lesions. Family History Mother Hypertension Heart disease Grandmother Hypertension maternal and paternal Breast cancer maternal, diagnosed at age 43 Colon cancer maternal, diagnosed at age 63 Father Hypertension Grandfather Hypertension maternal and paternal Heart disease maternal Denies family history of Ovarian cancer Diabetes Uterine cancer Thyroid disease Stroke Social History Smoking and tobacco/nicotine status: never used tobacco/nicotine Second hand smoke exposure: Yes Alcohol intake: current Substance/Drug Use: current Substance/Drug use frequency: few times a month Other substance/drug use details: Medical card, gets 11 gummies/month Lives independently: Yes Housing: House Marital status: Single Number of children: 0 service: No Current occupational status: disabled Current gender identity: Female Special tereza needs: No Agree to transfusion: Yes Physical Exam Const: COMMON NORMALS: no acute distress, patient oriented x3 and healthy appearing HENMT: COMMON NORMALS: normocephalic and atraumatic HEAD & SCALP: normocephalic and atraumatic Eye: COMMON NORMALS: Equal, round and reactive pupils present and EOMs intact bilaterally PUPIL: Yes Equal, round and reactive pupils present Neck/C-Spine: COMMON NORMALS: full ROM and supple Chest: COMMONS NORMALS: normal inspection of the chest and normal palpation of entire chest wall Resp: COMMON NORMALS: normal respiratory effort, No retractions, No use of accessory muscles and clear to auscultation bilaterally AUSCULTATION: clear to auscultation bilaterally Cardio: COMMON NORMALS: regular rate, regular rhythm and No murmurs present (Cardio) RATE: regular rate RHYTHM: regular rhythm GI: COMMON NORMALS: Normal to inspection, nondistended, normoactive bowel sounds present, Soft to palpation, non-tender and no masses PALPATION: Yes Soft to palpation Extremity: COMMON NORMALS: normal to inspection and full ROM Neuro: COMMON NORMALS: patient oriented x3, moves all extremities and no focal motor deficits Psych: COMMON NORMALS: mental status grossly normal, Normal thought process present and cooperative THOUGHT PROCESS: Normal thought process present Skin: COMMON NORMALS: no rashes or lesions noted and no wounds GENERAL SKIN EXAM: no rashes or lesions noted Course Vital Signs: Vital signs: Vital Signs Temperature 97.8 F 04/05/23 17:44 Pulse Rate 90 04/05/23 19:17 Respiratory Rate 14 04/05/23 19:17 Blood Pressure 133/93 04/05/23 19:17 Pulse Oximetry 95 04/05/23 19:17 Oxygen Delivery Me thod Room Air 04/05/23 17:44 MDM - Seizure MDM Narrative Medical decision making narrative: Patient presents here after a seizure she has had a recent head CT is normal blood work here is normal she has been well-appearing here she does have a scheduled point with neurology she is to follow-up as scheduled she is to continue to take her Keppra. Lab Data 04/05/23 18:29 04/05/23 18:29 Labs: Laboratory Results WBC 5.48 10^3/uL (3.29-11.43) 04/05/23 18: RBC 4.52 10^6/uL (3.85-5.65) 04/05/23 18: Hgb 13.20 g/dL (11.27-16.99) 04/05/23 18: Hct 41.0 % (36-47) 04/05/23 18: MCV 90.7 fl (85-98) 04/05/23 18: MCH 29.2 pg (27-33) 04/05/23 18: MCHC 32.2 g/dL (30-55) 04/05/23 18: RDW 13.0 % (12.1-15.1) 04/05/23 18: Plt Count 302 10^3/cmm (157-399) 04/05/23 18: MPV 10.3 fL (7.4-10.4) 04/05/23 18: Neut % (Auto) 52.1 % 04/05/23 18: Lymph % (Auto) 37.0 % 04/05/23 18: [place] % (Auto) 8.9 % 04/05/23 18: Eos % (Auto) 1.1 % 04/05/23 18: Baso % (Auto) 0.5 % 04/05/23 Neut # (Auto) 2.85 10^3/uL (1.8-7.7) 04/05/23: Lymph # (Auto) 2.0 10^3/uL (0.8-4.8) 04/05/23: [place] # (Auto) 0.5 10^3/uL (0.2-0.9) 04/05/23: Eos # (Auto) 0.1 10^3/uL (0.0-0.8) 04/05/23 Baso # (Auto) 0.0 10^3/uL (0.0-0.1) 04/05/23 Nucleated RBC % (auto) 0 % 04/05/23 Nucleated RBCs # 0.0 /100WBC 04/05/23 18: Sodium 139 mmol/L (136-145) 04/05/23: Potassium 4.3 mmol/L (3.5-5.1) 04/05/23: Chloride 101 mmol/L (98-107) 04/05/23 Carbon Dioxide 26 mmol/L (22-29) 04/05/23 Anion Gap 16.3 (5-19) 04/05/23 18 BUN 16 mg/dL (6-20) 04/05/23 18: Creatinine 1.4 mg/dL (0.5-0.9) H 04/05/23 GFR Calculation 40.7 mL/min (90-130) L 04/05/23 Glucose 85 mg/dL (65-115) 04/05/23 18: Calculated Osmolality 288 mOsm/kg (285-295) 04/05/23 Calcium 9.4 mg/dL (8.5-10.5) 04/05/23: Total Bilirubin 0.3 mg/dL (0.15-1.2) 10/18/23 18:29 AST 20 U/L (0-32) 04/05/23 18:29 ALT 24 U/L (0-33) 04/05/23 18:29 Alkaline Phosphatase 38 U/L (35-105) 04/05/23 18:29 Total Protein 6.8 g/dL (6.6-8.7) 04/05/23 18:29 Albumin 4.1 g/dL (3.5-5.2) 04/05/23 18:29 Globulin 2.7 g/dL (1.3-4.6) 04/05/23 18:29 No radiology studies performed this visit Discharge Plan Discharge Patient Disposition: Home Clinical Impression: Generalized seizure Condition: Stable Prescriptions: No Action albuterol sulfate [Ventolin HFA] 90 mcg/actuation HFA aerosol inhaler 2 puff INHALATION QID PRN (Reason: Shortness Of Breath) quetiapine 300 mg tablet 900 mg PO BEDTIME oxcarbazepine 300 mg tablet 300 mg PO BID Qty: 30 0RF levetiracetam [Keppra] 500 mg tablet 500 mg PO BID Qty: 60 2RF fexofenadine-pseudoephedrine [Ivette-D 12 Hour] 60-120 mg tablet extended release 12 hr 1 tab PO Q12H PRN (Reason: allergy symptoms) Qty: 20 0RF (DME) Blood Glucose Test Strip See Rx Instructions .Route Qty: 50 1RF Rx Instructions: As directed isosorbide dinitrate 20 mg tablet See Rx Instructions .ROUTE .COMPLEX Qty: 60 3RF Dose Instruction: TAKE ONE TABLET BY MOUTH TWICE DAILY Rx Instructions: TAKE ONE TABLET BY MOUTH TWICE DAILY ondansetron 4 mg tablet,disintegrating See Rx Instructions .ROUTE .COMPLEX Qty: 7 0RF Dose Instruction: DISSOLVE ONE TABLET in MOUTH EVERY 8 HOURS NEEDED Rx Instructions: DISSOLVE ONE TABLET in MOUTH EVERY 8 HOURS NEEDED nystatin 100,000 unit/gram cream See Rx Instructions .ROUTE .COMPLEX Qty: 40 3RF Dose Instruction: APPLY ONE application topically TWICE DAILY NEEDED Rx Instructions: APPLY ONE application topically TWICE DAILY NEEDED omeprazole 40 mg capsule,delayed release(DR/EC) See Rx Instructions .ROUTE .COMPLEX Qty: 30 2RF Dose Instruction: TAKE ONE CAPSULE BY MOUTH ONCE DAILY Rx Instructions: TAKE ONE CAPSULE BY MOUTH ONCE DAILY ferrous sulfate [FeroSul] 325 mg (65 mg iron) tablet See Rx Instructions .ROUTE .COMPLEX Qty: 30 2RF Dose Instruction: TAKE ONE TABLET BY MOUTH EVERY MORNING Rx Instructions: TAKE ONE TABLET BY MOUTH EVERY MORNING fenofibrate 160 mg tablet See Rx Instructions .ROUTE .COMPLEX Qty: 30 2RF Dose Instruction: TAKE ONE TABLET BY MOUTH DAILY Rx Instructions: TAKE ONE TABLET BY MOUTH DAILY Ozempic 0.25 mg or 0.5 mg (2 mg/3 mL) pen injector See Rx Instructions .ROUTE .COMPLEX Qty: 3 1RF Dose Instruction: inject 0.5mg SUBCUTANEOUSLY ONCE WEEKLY Rx Instructions: inject 0.5mg SUBCUTANEOUSLY ONCE WEEKLY metoprolol tartrate 100 mg tablet See Rx Instructions .ROUTE .COMPLEX Qty: 60 2RF Dose Instruction: TAKE ONE TABLET BY MOUTH TWICE DAILY with food Rx Instructions: TAKE ONE TABLET BY MOUTH TWICE DAILY with food glipizide 10 mg tablet See Rx Instructions .ROUTE .COMPLEX Qty: 60 3RF Dose Instruction: TAKE ONE TABLET BY MOUTH TWICE DAILY Rx Instructions: TAKE ONE TABLET BY MOUTH TWICE DAILY WITH MEALS metformin 500 mg tablet See Rx Instructions .ROUTE .COMPLEX Qty: 120 2RF Dose Instruction: TAKE TWO TABLETS BY MOUTH TWICE DAILY Rx Instructions: TAKE TWO TABLETS BY MOUTH TWICE DAILY potassium chloride 20 mEq tablet,ER particles/crystals See Rx Instructions .ROUTE .COMPLEX Qty: 30 1RF Dose Instruction: TAKE ONE TABLET BY MOUTH ONCE a DAY with food Rx Instructions: TAKE ONE TABLET BY MOUTH ONCE a DAY with food alprazolam [Xanax] 2 mg Tablet 2 mg PO TID PRN (Reason: Anxiety) desipramine 100 mg tablet 100 mg PO DAILY ergocalciferol (vitamin D2) 1,250 mcg (50,000 unit) capsule 1,250 mcg PO Q7D Eliquis 5 mg Tablet 5 mg PO BID Jardiance 25 mg Tablet 25 mg PO DAILY Discharge Orders: Discharge ED (Routine); Ordered 04/05/23 Ordered By: Milagros Pat Referrals: Pham Jackman MD [Primary Care Provider] - 1-3 days Discharge Diet: Advance as tolerated Discharge Activity: Resume usual activity Patient Instructions: Recurrent Seizures in Adults (ED) Coding Level of Care Code ED [employer] for Marci Helms
[2023-04-05] MEDS: LORazepam 2 mg/mL INJ 1 mL 1 MG IVP (18:20)
[2023-04-05 18:33] LABS: Basophils % 0.5 %; Eosinophils # 0.1 10^3/uL (0.0-0.8); Eosinophils % 1.1 %; Mean Corpuscular HGB Conc 32.2 g/dL (30-55); Mean Corpuscular Hemoglobin 29.2 pg (27-33); Mean Corpuscular Volume 90.7 fl (85-98); Mean Platelet Volume 10.3 fL (7.4-10.4); Monocytes # 0.5 10^3/uL (0.2-0.9); Monocytes % 8.9 %; Neutrophils # 2.85 10^3/uL (1.8-7.7); Neutrophils % 52.1 %; Nucleated Red Blood Cells % 0 %; Platelet Count 302 10^3/cmm (157-399); Red Blood Count 4.52 10^6/uL (3.85-5.65); White Blood Count 5.48 10^3/uL (3.29-11.43)
[2023-04-05 18:52] LABS: Alanine Aminotransferase 24 U/L (0-33); Albumin Level 4.1 g/dL (3.5-5.2); Alkaline Phosphatase 38 U/L (35-105); Anion Gap 16.3 (5-19); Aspartate Amino Transferase 20 U/L (0-32); Blood Urea Nitrogen 16 mg/dL (6-20); Calcium 9.4 mg/dL (8.5-10.5); Carbon Dioxide 26 mmol/L (22-29); Chloride 101 mmol/L (98-107); Globulin 2.7 g/dL (1.3-4.6); Glomerular Filtration Rate 40.7 mL/min (90-130); Glucose 85 mg/dL (65-115); Osmolality Calculated 288 mOsm/kg (285-295); Potassium 4.3 mmol/L (3.5-5.1); Sodium 139 mmol/L (136-145); Total Bilirubin 0.3 mg/dL (0.15-1.2); Total Protein 6.8 g/dL (6.6-8.7)
[2023-04-05 19:00] VITALS: BP 137/104; PULSE 86; RESP 14; O2SAT 96
[2023-04-05 19:17] VITALS: BP 133/93; PULSE 90; RESP 14; O2SAT 95
== END 2023-04-05 19:24 | disposition home or self-care (01) ==
PROVIDERS: Emergency Provider Emergency Medicine; PCP Family Medicine
DX: G40.409 Other generalized epilepsy and epileptic syndromes, not intractable, without status epilepticus (principal); Z79.84 Long term (current) use of oral hypoglycemic drugs; Z79.01 Long term (current) use of anticoagulants; Z77.22 Contact with and (suspected) exposure to environmental tobacco smoke (acute) (chronic); J44.9 Chronic obstructive pulmonary disease, unspecified; I10 Essential (primary) hypertension; Z86.73 Personal history of transient ischemic attack (TIA), and cerebral infarction without residual deficits
CPT/HCPCS: 36415; 80053; 85025; 96365; 96375; 99284; J1953; J2060

== ENCOUNTER → 2023-04-11 10:09 | Outpatient (BNVA) | payer MEDICARE, MEDICAID, SELFPAY | PROVIDERS: PCP Family Medicine; Visit Provider Family Medicine | DX: E11.9 Type 2 diabetes mellitus without complications (principal); E78.5 Hyperlipidemia, unspecified; I10 Essential (primary) hypertension; Z09 Encounter for follow-up examination after completed treatment for conditions other than malignant neoplasm; R56.9 Unspecified convulsions | CPT/HCPCS: 80053; 80061; 83036; 84443; 85025 ==

== ENCOUNTER → 2023-04-27 10:52 | Outpatient (BNVA) | payer MEDICARE, MEDICAID, SELFPAY | PROVIDERS: PCP Family Medicine; Visit Provider Psychiatry & Neurology Neurology | DX: G40.909 Epilepsy, unspecified, not intractable, without status epilepticus (principal); R41.82 Altered mental status, unspecified; I10 Essential (primary) hypertension | CPT/HCPCS: 36415; 82607; 82746; 83735; 83921; 99203 ==

== ENCOUNTER 2023-05-15 21:09 | Inpatient (IN) | payer MEDICARE, MEDICAID, SELFPAY ==
[2023-05-15 21:16] VITALS: BP 117/90; PULSE 85; RESP 18; TEMP 36.6; O2SAT 97
--- NOTE | 2023-05-15 21:20 | ED.C_ITS ---
HPI - Psych General: Chief Complaint: Psychiatric Symptoms Stated Complaint: OD Time Seen by Provider: 05/15/23 21:19 History of Present Illness: 47-year-old female presents emergency department via EMS personnel stating that she intentionally tried to harm herself by taking multiple pills of her metformin and glipizide as well as Xanax. She states she took 3-6 of each and attempt to end her life. She states that she is very depressed and wanted to end her life because her family wants nothing to do with her. She states she also recently lost her dog and wants to be buried next to her dog. She states that her ex [id number] called 911 to have her transported for attempted suicide. Associated symptoms: Reports depression and suicidal ideation; Deny auditory hallucinations or homicidal ideation Review of Systems General: Reports: 10 or more systems reviewed and unremarkable except in HPI and below Psych: Reports: depression, hopelessness and suicidal ideation; Denies: auditory hallucinations, tactile hallucinations or homicidal ideation [facility] ED PFSH: Medical History Chronic constipation Controlled with medications followed by her primary care provider COPD (chronic obstructive pulmonary disease) Diagnosed in 2013 and is controlled with medication COPD (chronic obstructive pulmonary disease) Depression Diagnosed at the age of 23 and has been on medication since then. She follows up with Dr. Benitez a psychiatrist and as well as therapy in [place]. She currently denies suicidal/homicidal ideation. Essential (primary) hypertension Diagnosed in 2019 and she follows up with Dr. Anderson and cardiology. Gastro-esophageal reflux disease without esophagitis Controlled with medication. H/O deep venous thrombosis Reports having a DVT in 2019 and states her warfarin dose was increased after this. She follows up with Dr. Crespo -had second DVT in 11/2019 and was taken off warfarin and is now on eliquis Obstructive sleep apnea Personal history of pulmonary embolism (~2012) States that she had a PE in 2012 and has been on warfarin since then. TIA (transient ischemic attack) Reports having had a TIA in 2019. Denies any neurological deficits. Followed by her primary care provider. Surgical History Status post conization of cervix Office LEEP procedure performed by Dr. Zelaya in 2005 for MARY-2 on Pap smear. 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 Status post knee surgery 2018-open knee surgery for torn ACL Status post left breast lumpectomy Patient reports having had 3 lumpectomies of her left breast in 1999, 2007 and 2009 for benign lesions. Family History Mother Hypertension Heart disease Grandmother Hypertension maternal and paternal Breast cancer maternal, diagnosed at age 43 Colon cancer maternal, diagnosed at age 63 Father Hypertension Grandfather Hypertension maternal and paternal Heart disease maternal Denies family history of Ovarian cancer Diabetes Uterine cancer Thyroid disease Stroke Social History Smoking and tobacco/nicotine status: never used tobacco/nicotine Second hand smoke exposure: Yes Alcohol intake: former Substance/Drug Use: former Date of last use: 03/12/2023 Former substance use details: Marijuana Lives independently: Yes Housing: House Marital status: Single Number of children: 0 service: No Current occupational status: disabled Current gender identity: Female Special tereza needs: No Agree to transfusion: Yes Physical Exam Narrative: EXAM NARRATIVE: Constitutional: the patient appears well nourished and with normal development. Vital signs reviewed as documented. HENMT: Normocephalic, atraumatic. Extermal ears with normal appearance without drainage. Nose without drainage, normal appearance. Mucus membranes moist. Neck is supple, No jugular venous distension, trachea is midline, no appreciable carotid bruits. No lymphadenopathy. No meningeal signs. Flexion, extension and lateral rotation is without pain. Eyes: Pupils are equal, round, reactive to light and accommodation. No scleral icterus. Extra-ocular movement are intact. Thorax is symmetrical and with equal rise and fall with respirations. Resp: Lungs are clear to auscultation. No wheezes, rales, crackles or ronchi at present. Cardio: Regular rate and rhythm. Positive S1, S2. No appreciable murmurs, rubs or gallops. GI: Abdominal exam reveals normal bowel sounds to all quadrants. No organomegaly. No obvious palpable masses noted. No hepatomegally appreciated. Soft, nontender to palpation. Extremity: Extremities are non-edematous and both femoral and pedal pulses are 2+ and equal bilaterally. Moves all extremities well, sensation in all ext remities. Neuro: Alert and oriented x4, person, place, time and situation. Cranial nerves II through XII are grossly intact, there is no focal neurological deficits that I can appreciate at present. Motor strength in the upper and lower extremities are equal and bilateral 5/5. Psych: Cooperative, calm, blunted affect, states suicidal ideation. Skin: No lesions, rashes. No gross abnormalities noted. Back: Symmetrical, no obvious deformity, No CVA tenderness Course Vital Signs: Vital signs: Vital Signs Temperature 97.9 F 05/15/23 21:16 Pulse Rate 85 05/15/23 21:16 Respiratory Rate 18 05/15/23 21:16 Blood Pressure 117/90 05/15/23 21:16 Pulse Oximetry 97 05/15/23 21:16 Oxygen Delivery Me thod Room Air 05/15/23 21:16 MDM - Psych Medical Decision Making Physical exam completed, psychiatric clearance medication to include Tylenol, salicylate, alcohol level, CBC CMP EKG we will start a D10 drip given the p atient's blood glucose level in the EMS service went from 99-70 on arrival here in the emergency department. We did contact poison control to discuss appropriate treatment of intentional overdose. Medical Records I reviewed the patient's medical records. Lab Data 05/15/23 21:30 05/15/23 21:30 Laboratory Results WBC 4.73 10^3/uL (3.29-11.43) 05/15/23 21:30 RBC 4.22 10^6/uL (3.85-5.65) 05/15/23 21:30 Hgb 12.40 g/dL (11.27-16.99) 05/15/23 21:30 Hct 39.2 % (36-47) 05/15/23 21:30 MCV 92.9 fl (85-98) 05/15/23 21:30 MCH 29.4 pg (27-33) 05/15/23 21:30 MCHC 31.6 g/dL (30-55) 05/15/23 21:30 RDW 13.3 % (12.1-15.1) 05/15/23 21:30 Plt Count 272 10^3/cmm (157-399) 05/15/23 21:30 MPV 10.5 fL (7.4-10.4) H 05/15/23 21:30 Neut % (Auto) 48.7 % 05/15/23 21:30 Lymph % (Auto) 39.3 % 05/15/23 21:30 [place] % (Auto) 10.1 % 05/15/23 21: Eos % (Auto) 1.3 % 05/15/23 21:30 Baso % (Auto) 0.4 % 05/15/23 21:30 Neut # (Auto) 2.30 10^3/uL (1.8-7.7) 05/15/23 21: Lymph # (Auto) 1.9 10^3/uL (0.8-4.8) 05/15/23 21: [place] # (Auto) 0.5 10^3/uL (0.2-0.9) 05/15/23 21: Eos # (Auto) 0.1 10^3/uL (0.0-0.8) 05/15/23 21: Baso # (Auto) 0.0 10^3/uL (0.0-0.1) 05/15/23 21: Nucleated RBC % (auto) 0 % 05/15/23 21: Nucleated RBCs # 0.0 /100WBC 05/15/23 21:30 Sodium 138 mmol/L (136-145) 05/15/23 21:30 Potassium 4.0 mmol/L (3.5-5.1) 05/15/23 21: Chloride 104 mmol/L (98-107) 05/15/23 21: Carbon Dioxide 26 mmol/L (22-29) 05/15/23 21: Anion Gap 12.0 (5-19) 05/15/23 21: BUN 10 mg/dL (6-20) 05/15/23 21: Creatinine 1.1 mg/dL (0.5-0.9) H 05/15/23 21:30 GFR Calculation 53.7 mL/min (90-130) L 05/15/23 21:30 Glucose 76 mg/dL (65-115) 05/15/23 21:30 POC Glucose 78 mg/dL (70-110) 05/15/23 22:00 Calculated Osmolality 284 mOsm/kg (285-295) L 05/15/23 21: Calcium 9.2 mg/dL (8.5-10.5) 05/15/23 21:30 Total Bilirubin 0.2 mg/dL (0.15-1.2) 05/15/23 21: AST 17 U/L (0-32) 05/15/23 21:30 ALT 25 U/L (0-33) 05/15/23 21:30 Alkaline Phosphatase 40 U/L (35-105) 05/15/23 21: Total Protein 6.4 g/dL (6.6-8.7) L 05/15/23 21: Albumin 3.7 g/dL (3.5-5.2) 05/15/23 21: Globulin 2.7 g/dL (1.3-4.6) 05/15/23 21: HCG, Qual Negative (Negative) 05/15/23 22:02 Urine Color Yellow (Yellow) 05/15/23 22:02 Urine Appearance Sl hazy (CLEAR) A 05/15/23 22: Urine pH 5 (5-7) 05/15/23 22:02 Ur Specific [place] 1.020 (1.005-1.030) 05/15/23 22:02 Urine Protein Neg (Negative) 05/15/23 22:02 Urine Glucose (UA) 4+ (Normal) H 05/15/23 22:02 Urine Ketones 1+ (Negative) H 05/15/23 22:02 Urine Blood Neg (Negative) 05/15/23 22: Urine Nitrate Negative (Negative) 05/15/23 22: Urine Bilirubin Neg (Negative) 05/15/23 22:02 Urine Urobilinogen Neg mg/dL (Negative) 05/15/23 22:02 Ur Leukocyte Esterase Negative (Negative) 05/15/23 22:02 Urine RBC None /hpf (0-2) 05/15/23 22:02 Urine WBC 0-4 /hpf (0-5) H 05/15/23 22:02 Ur Squamous Epith Cells 15-25 /hpf (0-5) H 05/15/23 22:02 Amorphous Sediment Not Reportable 05/15/23 22:02 Urine Bacteria 1+ /hpf (NONE) H 05/15/23 22:02 Salicylates 0.4 mg/dL (3-10) L 05/15/23 21:30 Urine Opiates Screen Negative ng/mL (Negative) 05/15/23 22:02 Acetaminophen < 5.0 ug/mL (10-30) L 05/15/23 21:30 Ur Barbiturates Screen Negative ng/mL (Negative) 05/15/23 22:02 Ur Phencyclidine Scrn Negative ng/mL (Negative) 05/15/23 22:02 Ur Amphetamines Screen Negative ng/mL (Negative) 05/15/23 22:02 U Benzodiazepines Scrn Positive ng/mL (Negative) H 05/15/23 22:02 Urine Cocaine Screen Negative ng/mL (Negative) 05/15/23 22:02 U Marijuana (THC) Screen Positive ng/mL (Negative) H 05/15/23 22:02 Ethyl Alcohol < 10 mg/dL (0-10) 05/15/23 21:30 No radiology studies performed this visit Discharge Plan Discharge Clinical Impression: Overdose, Depression with suicidal ideation Condition: Stable Prescriptions: No Action albuterol sulfate [Ventolin HFA] 90 mcg/actuation HFA aerosol inhaler 2 puff INHALATION QID PRN (Reason: Shortness Of Breath) oxcarbazepine 300 mg tablet 300 mg PO BID Qty: 30 0RF fexofenadine-pseudoephedrine [Ivette-D 12 Hour] 60-120 mg tablet extended release 12 hr 1 tab PO Q12H PRN (Reason: allergy symptoms) Qty: 20 0RF aripiprazole [Abilify] 5 mg tablet 5 mg PO DAILY levetiracetam [Keppra] 500 mg tablet 500 mg PO .COMPLEX Qty: 90 0RF Rx Instructions: 500 mg orally in 2 am and two in pm.; ondansetron 4 mg tablet,disintegrating See Rx Instructions .ROUTE .COMPLEX Qty: 7 0RF Dose Instruction: DISSOLVE ONE TABLET in MOUTH EVERY 8 HOURS NEEDED Rx Instructions: DISSOLVE ONE TABLET in MOUTH EVERY 8 HOURS NEEDED nystatin 100,000 unit/gram cream See Rx Instructions .ROUTE .COMPLEX Qty: 40 3RF Dose Instruction: APPLY ONE application topically TWICE DAILY NEEDED Rx Instructions: APPLY ONE application topically TWICE DAILY NEEDED Ozempic 0.25 mg or 0.5 mg (2 mg/3 mL) pen injector See Rx Instructions .ROUTE .COMPLEX Qty: 3 1RF Dose Instruction: inject 0.5mg SUBCUTANEOUSLY ONCE WEEKLY Rx Instructions: inject 0.5mg SUBCUTANEOUSLY ONCE WEEKLY glipizide 10 mg tablet See Rx Instructions .ROUTE .COMPLEX Qty: 60 3RF Dose Instruction: TAKE ONE TABLET BY MOUTH TWICE DAILY Rx Instructions: TAKE ONE TABLET BY MOUTH TWICE DAILY WITH MEALS potassium chloride 20 mEq tablet,ER particles/crystals See Rx Instructions .ROUTE .COMPLEX Qty: 30 1RF Dose Instruction: TAKE ONE TABLET BY MOUTH ONCE a DAY with food Rx Instructions: TAKE ONE TABLET BY MOUTH ONCE a DAY with food fenofibrate 160 mg tablet See Rx Instructions .ROUTE .COMPLEX Qty: 30 2RF Dose Instruction: TAKE ONE TABLET BY MOUTH DAILY Rx Instructions: TAKE ONE TABLET BY MOUTH DAILY omeprazole 40 mg capsule,delayed release(DR/EC) See Rx Instructions .ROUTE .COMPLEX Qty: 30 2RF Dose Instruction: TAKE ONE CAPSULE BY MOUTH ONCE DAILY Rx Instructions: TAKE ONE CAPSULE BY MOUTH ONCE DAILY ferrous sulfate [FeroSul] 325 mg (65 mg iron) tablet See Rx Instructions .ROUTE .COMPLEX Qty: 30 2RF Dose Instruction: TAKE ONE TABLET BY MOUTH EVERY MORNING Rx Instructions: TAKE ONE TABLET BY MOUTH EVERY MORNING isosorbide dinitrate 20 mg tablet See Rx Instructions .ROUTE .COMPLEX Qty: 60 3RF Dose Instruction: TAKE ONE TABLET BY MOUTH TWICE DAILY Rx Instructions: TAKE ONE TABLET BY MOUTH TWICE DAILY Jardiance 25 mg tablet 25 mg PO DAILY Qty: 30 3RF atorvastatin [Lipitor] 10 mg tablet 10 mg PO DAILY Qty: 30 2RF coenzyme Q10 [CoQ-10] 100 mg capsule 100 mg PO DAILY Qty: 100 3RF (DME) Blood Glucose Test Strip See Rx Instructions .Route Qty: 100 3RF Rx Instructions: As directed; pt to test 1 x day and prn hypoglycemia metformin 500 mg tablet See Rx Instructions .ROUTE .COMPLEX Qty: 120 2RF Dose Instruction: TAKE TWO TABLETS BY MOUTH TWICE DAILY Rx Instructions: TAKE TWO TABLETS BY MOUTH TWICE DAILY metoprolol tartrate 100 mg tablet See Rx Instructions .ROUTE .COMPLEX Qty: 60 2RF Dose Instruction: TAKE ONE TABLET BY MOUTH TWICE DAILY with food Rx Instructions: TAKE ONE TABLET BY MOUTH TWICE DAILY with food Eliquis 5 mg tablet 5 mg PO BID Qty: 60 3RF quetiapine 300 mg tablet 900 mg PO BEDTIME Qty: 90 3RF alprazolam [Xanax] 2 mg Tablet 2 mg PO TID PRN (Reason: Anxiety) desipramine 100 mg tablet 100 mg PO DAILY ergocalciferol (vitamin D2) 1,250 mcg (50,000 unit) capsule 1,250 mcg PO Q7D Referrals: Pham Jackman MD [Primary Care Provider] - Coding Level of Care Code ED Belt [facility] for [facility]
[2023-05-15 21:23] LABS: Glucose Point of Care 70 mg/dL (70-110)
--- NOTE | 2023-05-15 21:32 | PC.NURSE ---
pt could have taken the following meds at 1930 3 aripiprazole 5mg 3 eliqus 5mg 3 glipizide 10mg 3 isosarbide 6 metformin hcl 3 meatoprolol 100mg 3 omeprazole 40mg 3 oxcarbazapine 9 quietiapine 6 xanax 2mg
--- NOTE | 2023-05-15 21:34 | P.HP_ITS ---
Providers/Chief Complaint Primary Care Provider: Pham Jackman MD Chief Complaint: OD History of Present Illness Heladio Branch is a 47 year old female present to the hospital for suicidal attempt, patient took multiple dose of Xanax glipizide and metformin at home. Patient is stating that she tried to kill herself. She is upset and frustrated because her family has disowned her. Patient stating that she posted pictures of teenagers on Facebook but her family forced her to delete them. Family has been very helpful to her which prompted her to in her life. Patient is claiming that she dated out of frustration now on work she is not planning to harm herself, she lives alone. Patient is following up with neurology for her seizures she takes Keppra, she does not drive or cook at home. She eats frozen food. Recently she lost her dog which aggravated her depression. Her [id number] called EMS for her suicidal attempt. Her glucose is around 70 she has been given glucagon and D10 No active signs of seizure Review of Systems Const: Denies: fever(s) or change in weight Eyes: Denies: change in vision ENMT: Denies: throat pain Card: Denies: chest pain Resp: Denies: dyspnea Medications/Allergies Home Medications Medication Instructions Recorded Confirmed Last Taken Type albuterol sulfate 90 mcg/actuation 2 puff inhalation QID PRN 06/20/19 05/04/23 03/16/20 History aerosol inhaler (Ventolin HFA) Shortness Of Breath alprazolam 2 mg tablet (Xanax) 2 mg PO TID PRN Anxiety 11/16/19 05/04/23 02/24/23 12:00 History desipramine 100 mg tablet 100 mg PO DAILY 08/18/20 05/04/23 02/24/23 08:00 History ergocalciferol (vitamin D2) 1,250 1,250 mcg PO Q7D 09/21/21 05/04/23 02/21/23 History mcg (50,000 unit) capsule oxcarbazepine 300 mg tablet 300 mg PO BID #30 tabs 02/23/22 05/04/23 02/24/23 08:00 Rx fexofenadine 60 mg-pseudoephedrine 1 tab PO Q12H PRN allergy symptoms 04/06/22 05/04/23 Unknown Rx ER 120 mg tablet,ext.release,12 hr #20 tabs (Ivette-D 12 Hour) ondansetron 4 mg disintegrating See Rx Instructions .Route 12/21/22 05/04/23 Unknown Rx tablet .COMPLEX #7 tabs nystatin 100,000 unit/gram topical See Rx Instructions .Route 12/23/22 05/04/23 Unknown Rx cream .COMPLEX #40 grams glipizide 10 mg tablet See Rx Instructions .Route 02/15/23 05/04/23 02/24/23 17:00 Rx .COMPLEX #60 tabs semaglutide 0.25 mg or 0.5 mg (2 See Rx Instructions .Route 02/15/23 05/04/23 02/23/23 20:00 Rx mg/3 mL) subcutaneous pen injector .COMPLEX #3 mL (Ozempic) fenofibrate 160 mg tablet See Rx Instructions .Route 04/12/23 05/04/23 Unknown Rx .COMPLEX #30 tabs ferrous sulfate 325 mg (65 mg See Rx Instructions .Route 04/12/23 05/04/23 Unknown Rx iron) tablet (FeroSul) .COMPLEX #30 tabs omeprazole 40 mg capsule,delayed See Rx Instructions .Route 04/12/23 05/04/23 Unknown Rx release .COMPLEX #30 caps potassium chloride 20 mEq See Rx Instructions .Route 04/12/23 05/04/23 Unknown Rx tablet,extended release(part/cryst) .COMPLEX #30 tabs isosorbide dinitrate 20 mg tablet See Rx Instructions .Route 04/13/23 05/04/23 Unknown Rx .COMPLEX #60 tabs atorvastatin 10 mg tablet (Lipitor) 10 mg PO DAILY #30 tabs 04/20/23 05/04/23 Unknown Rx coenzyme Q10 100 mg capsule 100 mg PO DAILY #100 caps 04/20/23 05/04/23 Unknown Rx (CoQ-10) empagliflozin 25 mg tablet 25 mg PO DAILY #30 tabs 04/20/23 05/04/23 Unknown Rx (Jardiance) blood sugar diagnostic (Blood #100 ea 04/24/23 05/04/23 Unknown Rx Glucose Test strips) aripiprazole 5 mg tablet (Abilify) 5 mg PO DAILY 04/27/23 05/04/23 Unknown History levetiracetam 500 mg tablet 500 mg PO .COMPLEX #90 tabs 04/27/23 05/04/23 Unknown Rx (Keppra) metformin 500 mg tablet See Rx Instructions .Route 05/04/23 Unknown Rx .COMPLEX #120 tabs metoprolol tartrate 100 mg tablet See Rx Instructions .Route 05/04/23 Unknown Rx .COMPLEX #60 tabs apixaban 5 mg tablet (Eliquis) 5 mg PO BID #60 tabs 05/09/23 Unknown Rx quetiapine 300 mg tablet 900 mg PO BEDTIME #90 tabs 05/09/23 Unknown Rx Allergies Allergy/AdvReac Type Severity Reaction Status Date / Time clonazepam [From Klonopin] Allergy Unknown Verified 05/15/23 21:26 Fish Containing Products Allergy anaphylaxis Verified 05/15/23 21:26 iodine Allergy ALGY-Anaphy Verified 05/15/23 21:26 laxis bupropion [From Wellbutrin] AdvReac Severe sucidal Verified 05/15/23 21:26 fluoxetine [From Prozac] AdvReac Severe sucidal Verified 05/15/23 21:26 topiramate [From Topamax] AdvReac Severe passing out Verified 05/15/23 21:26 venlafaxine [From Effexor] AdvReac Intermediate hives Verified 05/15/23 21:26 lamotrigine [From Lamictal] AdvReac Mild weight gain Verified 05/15/23 21:26 duloxetine [From Cymbalta] AdvReac Unknown Bumps Verified 05/15/23 21:26 inside mouth escitalopram [From Lexapro] AdvReac Unknown Made me Verified 05/15/23 21:26 psychotic sumatriptan AdvReac ADR-Depress Verified 05/15/23 21:26 ion PFSH Acute PFSH: Medical History Chronic constipation Controlled with medications followed by her primary care provider COPD (chronic obstructive pulmonary disease) Diagnosed in 2013 and is controlled with medication COPD (chronic obstructive pulmonary disease) Depression Diagnosed at the age of 23 and has been on medication since then. She follows up with Dr. Benitez a psychiatrist and as well as therapy in [place]. She currently denies suicidal/homicidal ideation. Essential (primary) hypertension Diagnosed in 2019 and she follows up with Dr. Anderson and cardiology. Gastro-esophageal reflux disease without esophagitis Controlled with medication. H/O deep venous thrombosis Reports having a DVT in 2019 and states her warfarin dose was increased after this. She follows up with Dr. Crespo -had second DVT in 11/2019 and was taken off warfarin and is now on eliquis Obstructive sleep apnea Personal history of pulmonary embolism (~2012) States that she had a PE in 2012 and has been on warfarin since then. TIA (transient ischemic attack) Reports having had a TIA in 2019. Denies any neurological deficits. Followed by her primary care provider. Surgical History Status post conization of cervix Office LEEP procedure performed by Dr. Zelaya in 2005 for MARY-2 on Pap smear. 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 Status post knee surgery 2018-open knee surgery for torn ACL Status post left breast lumpectomy Patient reports having had 3 lumpectomies of her left breast in 1999, 2007 and 2009 for benign lesions. Family History Mother Hypertension Heart disease Grandmother Hypertension maternal and paternal Breast cancer maternal, diagnosed at age 43 Colon cancer maternal, diagnosed at age 63 Father Hypertension Grandfather Hypertension maternal and paternal Heart disease maternal Denies family history of Ovarian cancer Diabetes Uterine cancer Thyroid disease Stroke Social History Smoking and tobacco/nicotine status: never used tobacco/nicotine Second hand smoke exposure: Yes Alcohol intake: former Substance/Drug Use: former Date of last use: 03/12/2023 Former substance use details: Marijuana Lives independently: Yes Housing: House Marital status: Single Number of children: 0 service: No Current occupational status: disabled Current gender identity: Female Special tereza needs: No Agree to transfusion: Yes Vitals/I&O/Wt Last Vital Signs Temp 97.9 F 05/15/23 21:16 Pulse 85 05/15/23 21:16 Resp 18 05/15/23 21:16 BP 117/90 05/15/23 21:16 Pulse Ox 97 05/15/23 21:16 O2 Del Method Room Air 05/15/23 21:16 Physical Exam Narrative: No active seizure Pleasant cooperative GCS 15 Euvolemic Abdomen distended nontender Extremity no edema S1, S2 Awake and alert Nonfocal neuro exam No audible stridor or wheezing Doing well on room air No active suicidal thoughts Data 05/15/23 21:30 05/15/23 21:30 A&P Assessment and plan (1) Overdose: (2) Depression with suicidal ideation: (3) Falls frequently: (4) Essential hypertension: (5) Generalized seizure: (6) Migraine: (7) Hypoglycemia: Plan Suicidal attempt Borderline personality History of seizures Migraine Patient is hyperglycemic without significant symptoms She has been given glucagon, currently on D10 No active neurological deficits Patient she will need psych evaluation in the morning once medically cleared Should stay on 96-hour hold Monitor blood sugar every hour Consistent carb diet Full code DVT prophylaxis on board Chronic kidney disease creatinine seems around baseline Drug screen positive for marijuana and benzodiazepines. History of seizure, continue Keppra Borderline personality: Continue aripiprazole Attestations Medical Necessity Statement*: More than 2 midnights anticipated for management of suicidal attempt hypoglycemia Diagnoses Overdose T50.901A Depression with suicidal ideation F32.A; R45.851 Falls frequently R29.6 Essential hypertension I10 Generalized seizure R56.9 Migraine G43.909 Hypoglycemia E16.2
[2023-05-15 21:47] LABS: Basophils % 0.4 %; Eosinophils # 0.1 10^3/uL (0.0-0.8); Eosinophils % 1.3 %; Hematocrit 39.2 % (36-47); Lymphocytes # 1.9 10^3/uL (0.8-4.8); Lymphocytes % 39.3 %; Mean Corpuscular HGB Conc 31.6 g/dL (30-55); Mean Corpuscular Hemoglobin 29.4 pg (27-33); Mean Corpuscular Volume 92.9 fl (85-98); Mean Platelet Volume 10.5 fL (7.4-10.4); Monocytes # 0.5 10^3/uL (0.2-0.9); Monocytes % 10.1 %; Neutrophils % 48.7 %; Nucleated Red Blood Cells % 0 %; Platelet Count 272 10^3/cmm (157-399); Red Blood Count 4.22 10^6/uL (3.85-5.65); Red Cell Distribution Width 13.3 % (12.1-15.1); White Blood Count 4.73 10^3/uL (3.29-11.43)
--- NOTE | 2023-05-15 21:50 | PC.NURSE ---
contacted poison control and info faxed over
[2023-05-15] MEDS: dextrose 10% 1,000 ML 125 ML IV (21:58)
[2023-05-15 22:02] LABS: Alanine Aminotransferase 25 U/L (0-33); Albumin Level 3.7 g/dL (3.5-5.2); Alkaline Phosphatase 40 U/L (35-105); Aspartate Amino Transferase 17 U/L (0-32); Blood Urea Nitrogen 10 mg/dL (6-20); Calcium 9.2 mg/dL (8.5-10.5); Carbon Dioxide 26 mmol/L (22-29); Chloride 104 mmol/L (98-107); Globulin 2.7 g/dL (1.3-4.6); Glomerular Filtration Rate 53.7 mL/min (90-130); Glucose 76 mg/dL (65-115); Osmolality Calculated 284 mOsm/kg (285-295); Salicylate 0.4 mg/dL (3-10); Sodium 138 mmol/L (136-145); Total Bilirubin 0.2 mg/dL (0.15-1.2); Total Protein 6.4 g/dL (6.6-8.7)
[2023-05-15] MEDS: glucagon 1 mg/mL KIT 1 mL IVP (22:03)
[2023-05-15 22:04] LABS: Glucose Point of Care 78 mg/dL (70-110)
[2023-05-15 22:08] LABS: Acetaminophen < 5.0 ug/mL (10-30); Alcohol Level < 10 mg/dL (0-10)
[2023-05-15 22:19] LABS: HCG Qualitative Urine. Negative (Negative)
[2023-05-15 22:25] LABS: Amphetamines Screen Urine Negative (Negative); Barbiturates Screen Urine Negative (Negative); Benzodiazepines Screen Urine Positive (Negative); Cocaine Screen Urine Negative (Negative); Opiate Screen Urine Negative (Negative); PCP Screen Urine Negative (Negative); THC Screen Urine Positive (Negative)
[2023-05-15 22:31] LABS: Add Urine Microscopic? YES; Bacteria Urine 1+ /hpf; Bilirubin Urine Neg (Negative); Blood Urine Neg (Negative); Glucose Urine UA 4+ (Normal); Ketones Urine 1+ (Negative); Leukocyte Esterase Urine Negative (Negative); Nitrate Urine Negative (Negative); Protein Urine Neg (Negative); Squamous Epithelial Cell Urine 15-25 /hpf (0-5); Urine Appearance SL Hazy (CLEAR); Urine Color Yellow (Yellow); Urobilinogen Urine Neg (Negative); WBC Urine 0-4 /hpf (0-5); pH Urine 5 (5-7)
[2023-05-15 22:32] LABS: Add Urine Culture? No
[2023-05-15 22:43] LABS: Magnesium 1.9 mg/dL (1.7-2.3)
[2023-05-15 23:07] LABS: Glucose Point of Care 141 mg/dL (70-110)
[2023-05-15 23:35] LABS: Estmated Average Glucose 97
[2023-05-15 23:48] VITALS: BP 116/89; PULSE 76; RESP 16; O2SAT 95
[2023-05-16] VITALS (25 sets, daily range): BP systolic 92–143; BP diastolic 64–96; PULSE 74–118; RESP 14–20; O2SAT 92–99
[2023-05-16 00:07] LABS: Glucose Point of Care 135 mg/dL (70-110)
[2023-05-16 00:29] LABS: Thyroid Stimulating Hormone 2.23 uIU/mL (0.27-4.20); Vitamin B12 163 pg/mL (232-1245)
[2023-05-16 01:10] LABS: Glucose Point of Care 194 mg/dL (70-110)
[2023-05-16 02:21] LABS: Glucose Point of Care 111 mg/dL (70-110)
--- NOTE | 2023-05-16 08:00 | MR_ITS ---
WS: [id number] MRI BRAIN WITHOUT CONTRAST HISTORY: Seizure. COMPARISON: 02/20/2014. Head CT 03/15/2023 TECHNIQUE: Diffusion imaging, multiplanar T1, T2 and FLAIR imaging obtained. No evidence for acute infarct or hemorrhage. Vasquez-white matter differentiation is normal. Mild volume loss and atrophy. No prior infarct. No hemorrhage. No significant atrophy of the temporal lobe hippocampal formations. Ventricles and extra-axial spaces are normal. No inferior displacement of cerebellar tonsils. The sella turcica and pituitary gland are unremarkabl e. Lobulated cystic mass in the RIGHT parotid gland measures 9 mm. Dural venous sinuses and [place] demonstrate no abnormality on this unenhanced studies. Paranasal sinuses: Clear. Mastoid air cells: Normal. Calvarium and scalp: Intact. IMPRESSION: 1. Very mild cerebral atrophy. No prior infarct or acute infarct. 2. No hemorrhage. 3. Normal hippocampal formations.
[2023-05-16 08:22] LABS: Glucose Point of Care 97 mg/dL (70-110)
[2023-05-16 08:22] LABS: Glucose Point of Care 135 mg/dL (70-110)
[2023-05-16 08:22] LABS: Glucose Point of Care 110 mg/dL (70-110)
[2023-05-16 08:22] LABS: Glucose Point of Care 114 mg/dL (70-110)
[2023-05-16 08:22] LABS: Glucose Point of Care 121 mg/dL (70-110)
[2023-05-16 08:28] LABS: Anion Gap 14.8 (5-19); Blood Urea Nitrogen 10 mg/dL (6-20); Calcium 9.3 mg/dL (8.5-10.5); Carbon Dioxide 25 mmol/L (22-29); Chloride 102 mmol/L (98-107); Glomerular Filtration Rate 53.7 mL/min (90-130); Glucose 127 mg/dL (65-115); Magnesium 1.7 mg/dL (1.7-2.3); Osmolality Calculated 287 mOsm/kg (285-295); Potassium 3.8 mmol/L (3.5-5.1); Sodium 138 mmol/L (136-145)
[2023-05-16 09:19] LABS: Basophils % 0.4 %; Eosinophils % 0.8 %; Hematocrit 38.5 % (36-47); Lymphocytes # 1.4 10^3/uL (0.8-4.8); Lymphocytes % 29.7 %; Mean Corpuscular HGB Conc 31.7 g/dL (30-55); Mean Corpuscular Hemoglobin 29.6 pg (27-33); Mean Corpuscular Volume 93.4 fl (85-98); Mean Platelet Volume 10.3 fL (7.4-10.4); Monocytes # 0.4 10^3/uL (0.2-0.9); Monocytes % 9.3 %; Neutrophils % 59.6 %; Nucleated Red Blood Cells % 0 %; Platelet Count 256 10^3/cmm (157-399); Red Blood Count 4.12 10^6/uL (3.85-5.65); Red Cell Distribution Width 13.4 % (12.1-15.1); White Blood Count 4.71 10^3/uL (3.29-11.43)
--- NOTE | 2023-05-16 09:30 | PC.NURSE ---
ASSUMED CARE AT THIS TIME
[2023-05-16 09:41] LABS: Glucose Point of Care 78 mg/dL (70-110)
[2023-05-16] MEDS: levETIRAcetam 500 mg Tablet 1000 MG PO ×2 (10:05→21:38)
[2023-05-16] MEDS: apixaban 5 mg Tablet PO ×2 (10:06→18:30)
--- NOTE | 2023-05-16 10:13 | PC.NURSE ---
CALLED DR. CHASE AND INFORMED IF VITALS AND BLOOD SUGAR, ORGANGE JUICE GIVEN. ORDER TO HOLD METOPROLOL UNTIL EVENING DOSE. PATIENT REQUESTING TO TAKE ABILIFY AT BEDTIME. STATES SHE WILL ADJUST MED SCHEDULE.
[2023-05-16] MEDS: dextrose 10% 250 ML 125 ML IV ×3 (10:16→16:40)
[2023-05-16 10:45] LABS: Glucose Point of Care 99 mg/dL (70-110)
[2023-05-16 11:52] LABS: Glucose Point of Care 129 mg/dL (70-110)
[2023-05-16 14:06] LABS: Glucose Point of Care 135 mg/dL (70-110)
--- NOTE | 2023-05-16 16:31 | P.PN_ITS ---
Subjective 2 Subjective: Overnight labs and H&P reviewed. Patient states that she wants to go home. Discussed with her that given her reported SI we will need to wait for psychiatry to evaluate her. MRI was able to be completed this afternoon and does not show any acute intracranial abnormalities. No seizures since she has been in the ER. Medications: Reviewed: Yes Vitals/I&O/Wt Last Vital Signs Temp 97.9 F 05/15/23 21:16 Pulse 113 H 05/16/23 15:30 Resp 16 05/16/23 15:30 BP 126/79 05/16/23 15:30 Pulse Ox 95 05/16/23 15:30 O2 Del Method Room Air 05/16/23 15:00 05/16/23 05/16/23 05/16/23 06:59 14:59 22:59 Intake Total 250 / 250 Balance 250 / 250 Physical Exam 2 Narrative: General: No acute distress, AO x3 HEENT: PERRLA, pupils bilaterally equal and reactive, pallors not present Chest: Normal vesicular breath sounds, no added sounds, equal good air entry bilaterally CVS: S1-S2 regular, no murmurs, no tachycardia, no gallops, no rubs Abdomen: Soft, nontender, no organomegaly, bowel sounds present Neuro: No focal deficits, no facial deformity, AO x3, power 5/5 in all limbs Data 05/16/23 06:41 05/16/23 06:41 A&P Assessment and plan (1) Overdose: (2) Depression with suicidal ideation: (3) Falls frequently: (4) Essential hypertension: (5) Generalized seizure: (6) Migraine: (7) Hypoglycemia: Plan Suicidal attempt, awaiting psychiatry evaluation. History of seizures for which MRI was recommended as outpatient. This was completed today and is overall negative for acute intracranial pathology. Incidentally noted very mild cerebral atrophy. She took extra medication of metformin and glipizide at home which explains her hypoglycemia. She has been on a D10 infusion all day. She is eating and drinking well currently. She is alert awake and oriented. Discontinue IV D10 and encourage p.o. intake. No active neurological deficits Consistent carb diet Full code Attestations 2 Medical Necessity Statement*: Discontinue IV fluids, awaiting psychiatry assessment for her reported suicidal ideation. Coding Level of Care Code Acute Code for Chg Fwd Diagnoses Overdose T50.901A Depression with suicidal ideation F32.A; R45.851 Falls frequently R29.6 Essential hypertension I10 Generalized seizure R56.9 Migraine G43.909 Hypoglycemia E16.2
--- NOTE | 2023-05-16 17:07 | PC.NURSE ---
PER DR. CHASE, FLUIDS TO BE STOPPED, BG CHECKS EVERY 4 HOURS.
[2023-05-16 18:34] LABS: Glucose Point of Care 114 mg/dL (70-110)
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
[2023-05-16] MEDS: quetiapine 300 mg Tablet 600 MG PO (21:37)
[2023-05-17] MEDS: ALPRAZolam 0.5 mg Tablet PO (00:26)
--- NOTE | 2023-05-17 01:00 | PC.NURSE ---
Assumed care of patient at 0100. Pt resting in bed with normal respirations noted. R. 17./ normal chest rise. Sitter at doorway.
[2023-05-17 01:43] VITALS: RESP 17
[2023-05-17 02:53] LABS: Glucose Point of Care 103 mg/dL (70-110)
[2023-05-17 03:25] LABS: SARS Covid-2 Antigen negative (Negative)
--- NOTE | 2023-05-17 05:13 | PC.NURSE ---
Pt served with 96 Hour Hold rights. All questions answered.
--- NOTE | 2023-05-17 05:55 | PC.NURSE ---
pt c/o diarrhea. Requesting medication. Verbal order Dr Lawson for lomitol 1 x dose.
[2023-05-17 06:00] VITALS: BP 136/92; PULSE 111; RESP 20; O2SAT 96
[2023-05-17] MEDS: diphenoxylate/atropine Tablet 1 TAB PO (06:24)
[2023-05-17 06:29] LABS: Glucose Point of Care 131 mg/dL (70-110)
--- NOTE | 2023-05-17 08:37 | PC.NURSE ---
I gave Zofran 4 mg PO to patient at 0818.
[2023-05-17] MEDS: metoprolol tartrate 25 mg Tablet PO ×2 (08:40→20:30)
[2023-05-17] MEDS: apixaban 5 mg Tablet PO ×2 (08:41→20:31)
[2023-05-17] MEDS: ARIPiprazole 10 mg Tablet 5 MG PO (08:41)
[2023-05-17] MEDS: levETIRAcetam 500 mg Tablet 1000 MG PO ×2 (08:41→20:30)
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
[2023-05-17 12:23] LABS: Glucose Point of Care 119 mg/dL (70-110)
[2023-05-17] MEDS: acetaminophen 500 mg Tablet PO ×2 (15:12→20:30)
--- NOTE | 2023-05-17 16:04 | PM.MISC ---
Miscellaneous Note Purpose of Documentation: Patient transferred care from medicine service to psychiatry service. Her fingersticks are currently well controlled. Recommend to continue before meals and at bedtime fingersticks. Resume metformin. Continue to hold glipizide for now. May be restarted if blood sugars start to trend greater than 150 consistently. Medicine team to sign off for now. Please call with any further questions or concerns.
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
[2023-05-17 17:34] LABS: Glucose Point of Care 101 mg/dL (70-110)
[2023-05-17] MEDS: desvenlafaxine 50 mg Tablet 100 MG PO (17:44)
[2023-05-17] MEDS: metformin 500 mg Tablet 1000 MG PO (17:44)
[2023-05-17 20:27] LABS: Glucose Point of Care 112 mg/dL (70-110)
[2023-05-17] MEDS: isosorbide dinitrate 20 mg Tablet PO (20:30)
[2023-05-17] MEDS: quetiapine 300 mg Tablet 600 MG PO (20:30)
[2023-05-17] MEDS: metoprolol tartrate 50 mg Tablet 100 MG PO (20:30)
[2023-05-17] MEDS: ALPRAZolam 0.5 mg Tablet 2 MG PO (20:31)
[2023-05-17 22:39] VITALS: BP 138/97; PULSE 118; RESP 18; TEMP 36.7; O2SAT 94
[2023-05-18] VITALS (8 sets, daily range): BP systolic 107–146; BP diastolic 70–95; PULSE 70–105; RESP 15–24; TEMP 36.6–36.8; O2SAT 92–96
[2023-05-18 08:05] LABS: Glucose Point of Care 124 mg/dL (70-110)
[2023-05-18] MEDS: pantoprazole DR 40 mg Tablet PO (08:55)
[2023-05-18] MEDS: ARIPiprazole 10 mg Tablet 5 MG PO (08:55)
[2023-05-18] MEDS: ferrous sulfate EC 325 mg Tablet PO (08:55)
[2023-05-18] MEDS: ALPRAZolam 0.5 mg Tablet 2 MG PO ×3 (08:55→20:30)
[2023-05-18] MEDS: levETIRAcetam 500 mg Tablet 1000 MG PO ×2 (08:55→20:28)
[2023-05-18] MEDS: desvenlafaxine 50 mg Tablet 100 MG PO (08:56)
[2023-05-18] MEDS: metoprolol tartrate 25 mg Tablet PO ×2 (08:56→20:28)
[2023-05-18] MEDS: apixaban 5 mg Tablet PO ×2 (08:56→20:30)
[2023-05-18] MEDS: isosorbide dinitrate 20 mg Tablet PO ×2 (08:56→20:30)
[2023-05-18] MEDS: glimepiride 2 mg Tablet PO ×2 (08:56→17:34)
[2023-05-18] MEDS: metformin 500 mg Tablet 1000 MG PO ×2 (08:57→17:34)
[2023-05-18] MEDS: atorvastatin 40 mg Tablet 20 MG PO (08:57)
[2023-05-18] MEDS: metoprolol tartrate 50 mg Tablet 100 MG PO ×2 (08:58→20:28)
--- NOTE | 2023-05-18 09:11 | PC.NURSE ---
During morning assessment, patient rates anxiety 10/10. Patient rocking back and forth on bench. Medications administered. Patient stated that she is going to sit on the bench in a safe area and that this should help decrease her anxiety. Denies thoughts of self-harm and AVH.
--- NOTE | 2023-05-18 10:34 | PC.NURSE ---
pt bp 109/72 pulse 71 resp 20 o2 95%. pt complaining of anxiety feeling lightheaded. pt was crying when I went into room, face was flushed. after speaking to patient in order to assess her, pt stopped crying when I was talking to her face cleared up informed her of her vital signs and that she may have to wait alittle longer for the 2mg ativan to take affect. pt stated ok she would just lay in her bed and try to relaxt.
[2023-05-18 11:00] LABS: Glucose Point of Care 154 mg/dL (70-110)
[2023-05-18 17:39] LABS: Glucose Point of Care 95 mg/dL (70-110)
--- NOTE | 2023-05-18 18:46 | P.NPUPN_ITS ---
Subjective NPU 2 Subjective: Patient presented today reporting that she was doing okay with being on the unit. She made an appoint to apologize for lying to this keno writer/runner a couple days ago. She tried to explore the different reasons why she would have been dishonest including there being another person in the room or area secondary to the telepsychiatry nature of the consult. She discussed the of her dog and having significant loneliness recently. She reports some of the challenges she had after having some [id number] spending but reports that her dad has stepped up and is helping her manage some of the consequences of the poor spending choices. We discussed exploring possibilities for safe discharge with supports in place. Mental Status Exam 2 MSE Comments: This is an obese versus morbidly obese white female in hospital scrubs with adequate grooming and eye contact. No abnormal movements set for mild psychomotor retardation. Cooperative with exam in no acute distress. Speech was normal rate and volume. Mood described as up and down, affect congruent. Thought process organized. Thought content: Patient denied suicidal or homicidal ideation, no delusions reported or noted, she denied any auditory or visual hallucinations. Attention and concentration appeared intact and memory was more reliable but none were formally tested. She is alert and oriented x 3. Insight and judgment are improving impulse control appears limited but improving. Vitals/I&O/Wt Last Vital Signs Temp 97.9 F 05/18/23 14:00 Pulse 70 05/18/23 14:00 Resp 15 05/18/23 14:00 BP 125/77 05/18/23 14:00 Pulse Ox 95 05/18/23 14:00 O2 Del Method Room Air 05/18/23 14:00 05/18/23 14:59 Intake Total Balance Data NPU 05/16/23 06:41 05/16/23 06:41 A&P Assessment and plan (1) Major depressive disorder, recurrent: (2) Depression with suicidal ideation: (3) PTSD (post-traumatic stress disorder): (4) Overdose: (5) Falls frequently: (6) Essential hypertension: (7) Generalized seizure: (8) Hyperlipidemia: (9) COPD (chronic obstructive pulmonary disease): (10) Iron deficiency: (11) Cannabis use, unspecified, uncomplicated: Plan 47-year-old female admitted after overdose with a history of PTSD, and major depressive disorder along with anxiety currently on multiple medications with reports of seizures. Patient would likely benefit from a brief hospital stay with more careful examination of her medication regimen as she appears to be on excess amounts of medications that may put her at risk of significant negative outcomes both psychiatrically and medically. 1. Encourage individual, group and milieu therapy. 2. Recommend sober living treatment at the highest level of care to which the patient is willing to commit. 3. Continue q-15 minute checks for safety.? 4.? Restart current medications with some immediate changes to be made including reduction in seroquel to 600mg at night and hold on desipramine (concern for serotonin syndrome) with pristiq. 5.? Will attempt to gather collateral information. 6. Will work with outpatient team to explore appropriate discharge planning. Involuntary Hold Information 2 96 Hour Hold: 96 Hour Involuntary Admission: Yes 96 Hour Hold Ending Date: 05/23/23 96 Hour Hold Ending Time: 04:05 Attestations NPU 2 Medical Necessity Statement*: Inpatient hospitalization is medically necessary and deemed to ?be ?the clinically appropriate intervention ?at this time.? We will monitor/initiate medications and make changes as indicated.? The patient?s likely length of stay 2-3 days. Coding Level of Care Code Acute Code for Chg Fwd Diagnoses Major depressive disorder, recurrent F33.9 Depression with suicidal ideation F32.A; R45.851 PTSD (post-traumatic stress disorder) F43.10 Overdose T50.901A Falls frequently R29.6 Essential hypertension I10 Generalized seizure R56.9 Hyperlipidemia E78.5 COPD (chronic obstructive pulmonary disease) J44.9 Iron deficiency E61.1 Cannabis use, unspecified, uncomplicated F12.90
[2023-05-18] MEDS: quetiapine 300 mg Tablet 600 MG PO (20:28)
[2023-05-18] MEDS: acetaminophen 500 mg Tablet PO (20:30)
--- NOTE | 2023-05-18 20:30 | PC.NURSE ---
IN DAY ROOM CONVERSING WITH PEERS. PT DENIES SI/HI AND AVH AT THIS TIME. REPORTS HEADACHE 7/10 PAIN. TYLENOL 500 MG WAS GIVEN ORDERED FOR PAIN. PT IS OBSERVED TO HAVE A FLAT AFFECT. REPORTS ANXIETY AND DEPRESSION /. PT'S NIGHT TIME XANAX WAS GIVEN ORDERED. ALL QUESTIONS ANSWERED AND SUPPORT WAS VOICED.
[2023-05-18] MEDS: ondansetron 4 MG Tablet PO (21:00)
[2023-05-18 21:17] LABS: Glucose Point of Care 66 mg/dL (70-110)
[2023-05-18 21:17] LABS: Glucose Point of Care 73 mg/dL (70-110)
--- NOTE | 2023-05-18 21:17 | PC.NURSE ---
Addendum entered and electronically signed by Misty Ann RN 05/19/23 00:17: DR. MCINTOSH NOTIFIED OF TRANSFER AT 2245 AND NPU PROFESSIONAL ARCHITECT AT 230 VIA TELEPHONE. Original Note: Addendum entered and electronically signed by Misty Ann RN 05/18/23 22:19: AT 2114 THIS RN AT BED SIDE TO RECHECK BLOOD GLUCOSE PT REPORTS I FEEL LIKE I'M GOING TO HAVE A SEIZURE MY BACK IS TINGLING. BLOOD GLUCOSE OBTAINED AND WAS 84. PT WAS GIVEN ORANGE JUICE TO DRINK. STAFF STAYED WITH PT IN CASE PT HAD A SEIZURE. AT 2119 PT WAS OBSERVED HAVING SEIZURE LIKE ACTIVITY WITH MYOCLONIC MOVEMENTS. SEIZURE LASTED APPROXIMATELY 30 SECONDS, AIRWAY MAINTAINED AND STAFF ASSISTED TO KEEP PT SAFE. PT APPEARED TO BE POSTICTAL BUT DID RESPOND SHORTLY AFTER. VS OBTAINED BP 167/86 HR 131 RR 20 SPO2 96 ON RA. WHILE THIS RN WAS ATTEMPTING TO GET GLUCAGON OUT OF PIXIS STAFF REPORTED THAT PT BLACKED OUT FOR APPROXIMATELY 3-5 SECONDS. THIS RN IN TO ASSESS. PT BREATHING, ALERT AND RESPONDING TO RN. RAPID RESPONSE WAS CALLED AT APPROXIMATELY 2137. STAFF RESPONDED TO ROOM. PT WAS OBSERVED AT 2144 TO HAVE A SECOND SEIZURE LASTING [address] HERRERA AT BEDSIDE. PT WAS OBSERVED TO HAVE POSTICTAL PHASE BRIEFLY BUT DID RESPOND. ORDERS WERE RECEIVED TO GIVE GLUCAGON 1 MG IM, WHICH WAS ADMINISTERED AT 2144 SEE AUG FOR DETAILS. ORDERS FOR VALIUM 2 MG PO GIVEN AT 2149. GAVE ORDERS TO TRANSFER PT TO ICU BED 5 AND START IV. #20 IV WAS STARTED BY BOX SPRING UPHOLSTERER TO THE RIGHT AC. PT WAS PREPPED FOR TRANSPORT. PT BECAME NAUSEATED AND AT 2210 WAS OBSERVED TO HAVE APPROXIMATELY 150 MLS OF EMESIS. PT HAD ZOFRAN PREVIOUSLY AND IT WAS TOO SOON TO REPEAT DOSE. AT 2212 BLOOD GLUCOSE REPEATED AND WAS 204. REPEAT VITALS WERE 113/90, 122 HR,20 RR, SPO2 96% ON RA. REPORT WAS CALLED TO PROFESSIONAL MODEL AT 2226, PT TRANSPORTED OUT OF NPU AT 2227. Original Note: AT 2024 PT GLUCOSE WAS NOTED TO BE 66, PT WAS ASYMPTOMATIC AND WAS GIVEN JUICE AND A SNACK DUE TO PT STATING SHE HAD NOT EATEN SINCE 0. GLUCOSE WAS RECHECKED AT 2099 AND IT WAS 73. PT COMPLAINED OF NAUSEA DUE TO DRINKING TOO MUCH JUICE. AND WAS GIVEN ZOFRAN 4 MG ORDERED FOR NAUSEA. THIS RN REVIEWED MEDICATION AND OBSERVED PT'S METFORMIN DOSE WAS 1000 MG BID AND GLIMEPIRIDE 2 MG BID. THIS RN NOTIFIED DR. JAMES AND REPORTED ALL THE ABOVE INFORMATION. DR. JAMES DISCONTINUED THE METFORMIN, GLIMEPIRIDE AND PLACED ORDERS FOR SLIDING SCALE WITH HYPOGLYCEMIC PROTOCOL. WILL RECHECK BLOOD GLUCOSE AT 2130. PT REMAINS ASYMPTOMATIC.
[2023-05-18] MEDS: glucagon 1 mg/mL KIT 1 mL (21:45)
[2023-05-18] MEDS: diazePAM 2 mg Tablet (21:50)
[2023-05-18 22:02] LABS: Glucose Point of Care 84 mg/dL (70-110)
[2023-05-18 22:02] LABS: Glucose Point of Care 89 mg/dL (70-110)
--- NOTE | 2023-05-18 22:03 | W.PM.EVENTAC ---
Event Notes Attestations Time Spent in Patient Care: Rapid response was called for seizure Blood sugar was 77 Patient had a seizure with hypoglycemia She was transferred to ICU I have requested intramuscular diazepam which was not available in MPU Patient's seizure subsided within 30 seconds Patient was given 1 mg intramuscular glucagon With seizure patient had urinary incontinence as well She is able to protect airway Able to answer my questions Head MRI reviewed no acute changes noted Plan Transfer to ICU Loaded with Keppra, add second antiepileptic medication Keep blood sugar between 140s to 180s Absolutely do not use glimepiride sulfonylurea, hold metformin Would recommend sliding scale to prevent hypoglycemic events
[2023-05-18 22:16] LABS: Glucose Point of Care 204 mg/dL (70-110)
--- NOTE | 2023-05-18 22:45 | PC.NURSE ---
Received patient via wheelchair from [facility]. Reports having a headache and states I always get a headache after I have a seizure . Reports having some mild nausea at current time. Alert and Oriented, no neurological deficits noted, no seizure activity noted.
[2023-05-18] MEDS: lacosamide 100 MG in sodium chloride 0.9% 50 ML 120 MG IV (23:01)
[2023-05-18 23:21] LABS: Glucose Point of Care 266 mg/dL (70-110)
[2023-05-19] VITALS (11 sets, daily range): BP systolic 101–178; BP diastolic 67–81; PULSE 72–91; RESP 15–26; TEMP 36.6–36.8; O2SAT 93–95
[2023-05-19 05:21] LABS: Basophils # 0.1 10^3/uL (0.0-0.1); Basophils % 0.7 %; Eosinophils # 0.1 10^3/uL (0.0-0.8); Eosinophils % 0.8 %; Hematocrit 41.8 % (36-47); Lymphocytes # 2.6 10^3/uL (0.8-4.8); Lymphocytes % 35.9 %; Mean Corpuscular HGB Conc 30.9 g/dL (30-55); Mean Corpuscular Hemoglobin 29.2 pg (27-33); Mean Corpuscular Volume 94.6 fl (85-98); Mean Platelet Volume 10.6 fL (7.4-10.4); Monocytes # 0.9 10^3/uL (0.2-0.9); Monocytes % 11.7 %; Neutrophils # 3.66 10^3/uL (1.8-7.7); Neutrophils % 50.6 %; Nucleated Red Blood Cells % 0 %; Platelet Count 299 10^3/cmm (157-399); Red Blood Count 4.42 10^6/uL (3.85-5.65); Red Cell Distribution Width 13.6 % (12.1-15.1); White Blood Count 7.24 10^3/uL (3.29-11.43)
[2023-05-19 05:43] LABS: Anion Gap 14.8 (5-19); Blood Urea Nitrogen 18 mg/dL (6-20); Calcium 9.5 mg/dL (8.5-10.5); Carbon Dioxide 26 mmol/L (22-29); Chloride 103 mmol/L (98-107); Glucose 93 mg/dL (65-115); Osmolality Calculated 292 mOsm/kg (285-295); Potassium 3.8 mmol/L (3.5-5.1); Sodium 140 mmol/L (136-145)
--- NOTE | 2023-05-19 06:29 | PC.NURSE ---
Blood glucose 93 on morning chemistry. Patient sates I should probably drink or eat a little something . Patient chose a sprite to drink. Sprite given to patient.
[2023-05-19 08:18] LABS: Glucose Point of Care 100 mg/dL (70-110)
[2023-05-19] MEDS: ALPRAZolam 0.5 mg Tablet 2 MG PO ×3 (08:51→20:16)
[2023-05-19] MEDS: apixaban 5 mg Tablet PO ×2 (08:52→20:16)
[2023-05-19] MEDS: metoprolol tartrate 25 mg Tablet PO (08:52)
[2023-05-19] MEDS: ARIPiprazole 10 mg Tablet 5 MG PO (08:52)
[2023-05-19] MEDS: pantoprazole DR 40 mg Tablet PO (08:52)
[2023-05-19] MEDS: levETIRAcetam 500 mg Tablet 1000 MG PO ×2 (08:52→20:16)
[2023-05-19] MEDS: atorvastatin 40 mg Tablet 20 MG PO (08:53)
[2023-05-19] MEDS: ferrous sulfate EC 325 mg Tablet PO (08:53)
[2023-05-19] MEDS: metoprolol tartrate 50 mg Tablet 100 MG PO ×2 (08:54→20:16)
[2023-05-19] MEDS: desvenlafaxine 50 mg Tablet 100 MG PO (08:56)
[2023-05-19] MEDS: isosorbide dinitrate 20 mg Tablet PO (08:57)
[2023-05-19 12:26] LABS: Glucose Point of Care 102 mg/dL (70-110)
--- NOTE | 2023-05-19 12:39 | P.PN_ITS ---
Subjective 2 Subjective: Alert awake and oriented today. No new complaints. Overnight was noted to have seizure-like activity for which she was transferred to the MPU. It appears sequence of events was precipitated by hypoglycemia, may have had a syncopal versus seizure-like activity. Blood glucose 66 at time of onset of events, however per review of nursing documentation it does not appear the seizure happened exactly at the time of hypoglycemia. It appears there was very brief post ictal period lasting few seconds. She is AOOX3 Hba1c this admission at 5.0. Hold all hypoglcemics tis admission and at discharge. Advise to follow up with PCP for serial Hba1c checks and assess for resumption of diabetes medications if needed Medications: Reviewed: Yes Vitals/I&O/Wt Last Vital Signs Temp 98.0 F 05/19/23 04:00 Pulse 87 05/19/23 12:00 Resp 26 H 05/19/23 12:00 BP 112/80 05/19/23 12:00 Pulse Ox 93 05/19/23 08:00 O2 Del Method Room Air 05/19/23 08:00 05/18/23 05/19/23 05/19/23 22:59 06:59 14:59 Intake Total 370 / 370 480 / 480 Balance 370 / 370 480 / 480 Weight last 48 hrs Weight 122.016 kg Physical Exam 2 Narrative: General: No acute distress, AO x3 HEENT: PERRLA, pupils bilaterally equal and reactive, pallors not present Chest: Normal vesicular breath sounds, no added sounds, equal good air entry bilaterally CVS: S1-S2 regular, no murmurs, no tachycardia, no gallops, no rubs Abdomen: Soft, nontender, no organomegaly, bowel sounds present Neuro: No focal deficits, no facial deformity, AO x3, power 5/5 in all limbs Data 05/19/23 04:53 05/19/23 04:53 A&P Assessment and plan (1) Overdose: Patient initially presented to the hospital with overdose of metformin glipizide and Xanax. She was improved with regards to medication overdose and was transferred to the NPU. Night of 05/18/2023 she was noted to have an episode of possible syncope versus seizure versus functional episode given past history of the same. Now stable. ALL OHAs held transfer back to NPU today (2) Depression with suicidal ideation: per NPU (3) Migraine: (4) Hypoglycemia: Hba1c 5.0 D/c all hypoglcemics now and at discharge (5) Seizure-like activity: Seizure-like activity witnessed overnight in the NPU which may have been syncopal episode from hypoglycemia versus functional episode as patient in the past, versus complex migraine given that patient had multiple episodes of vomiting and headache prior to this event. MRI negative this admission d/c iv vimpat continue home dose of keppra 1g BID, oxcarbazepine Attestations 2 Medical Necessity Statement*: transfer to NPU Coding Level of Care Code Acute Code for Chg Fwd Diagnoses Overdose T50.901A Depression with suicidal ideation F32.A; R45.851 Migraine G43.909 Hypoglycemia E16.2 Seizure-like activity R56.9
--- NOTE | 2023-05-19 14:27 | P.NPUPN_ITS ---
Subjective NPU 2 Subjective: Patient presented today reporting that she feels a little tired from the last 24 hours but is feeling that she is starting to feel more like herself. She reports that she feels like she would probably be safe if she went home. We began discussing what the safeguards would be to avoid the situation that she had prior to admission. She reports that home health has been ordered but is not in place yet in the sense that they have not actually met her in been in the home but she does believe it is active now. Mental Status Exam 2 MSE Comments: This is an obese versus morbidly obese white female in hospital scrubs with adequate grooming and eye contact. No abnormal movements set for mild psychomotor retardation. Cooperative with exam in no acute distress. Speech was normal rate and volume. Mood described as up and down, affect congruent. Thought process organized. Thought content: Patient denied suicidal or homicidal ideation, no delusions reported or noted, she denied any auditory or visual hallucinations. Attention and concentration appeared intact and memory was more reliable but none were formally tested. She is alert and oriented x 3. Insight and judgment are improving impulse control appears limited but improving. Vitals/I&O/Wt Last Vital Signs Temp 98.3 F 05/19/23 14:00 Pulse 72 05/19/23 14:00 Resp 15 05/19/23 14:00 BP 178/68 05/19/23 14:00 Pulse Ox 95 05/19/23 14:00 O2 Del Method Room Air 05/19/23 14:00 Weight last 48 hrs Weight 122.016 kg Weight 122.016 kg Data NPU 05/19/23 04:53 05/19/23 04:53 A&P Assessment and plan (1) Major depressive disorder, recurrent: (2) Depression with suicidal ideation: (3) PTSD (post-traumatic stress disorder): (4) Overdose: (5) Falls frequently: (6) Essential hypertension: (7) Generalized seizure: (8) Hyperlipidemia: (9) COPD (chronic obstructive pulmonary disease): (10) Iron deficiency: (11) Cannabis use, unspecified, uncomplicated: Plan 47-year-old female admitted after overdose with a history of PTSD, and major depressive disorder along with anxiety currently on multiple medications with reports of seizures. Patient would likely benefit from a brief hospital stay with more careful examination of her medication regimen as she appears to be on excess amounts of medications that may put her at risk of significant negative outcomes both psychiatrically and medically. 1. Encourage individual, group and milieu therapy. 2. Recommend sober living treatment at the highest level of care to which the patient is willing to commit. 3. Continue q-15 minute checks for safety.? 4.? Restart current medications with some immediate changes to be made including reduction in seroquel to 600mg at night and hold on desipramine (concern for serotonin syndrome) with pristiq. 5.? Will attempt to gather collateral information. 6. Will work with outpatient team to explore appropriate discharge planning. Involuntary Hold Information 2 96 Hour Hold: 96 Hour Involuntary Admission: No 96 Hour Hold Ending Date: 07/24/22 96 Hour Hold Ending Time: 04:05 Attestations NPU 2 Medical Necessity Statement*: Inpatient hospitalization is medically necessary and deemed to ?be ?the clinically appropriate intervention ?at this time.? We will monitor/initiate medications and make changes as indicated.? The patient?s likely length of stay 2-3 days. Coding Level of Care Code Acute Code for Chg Fwd Diagnoses Major depressive disorder, recurrent F33.9 Depression with suicidal ideation F32.A; R45.851 PTSD (post-traumatic stress disorder) F43.10 Overdose T50.901A Falls frequently R29.6 Essential hypertension I10 Generalized seizure R56.9 Hyperlipidemia E78.5 COPD (chronic obstructive pulmonary disease) J44.9 Iron deficiency E61.1 Cannabis use, unspecified, uncomplicated F12.90
[2023-05-19] MEDS: calcium carbonate 500 mg Chew Tablet 1000 MG PO (15:48)
[2023-05-19 18:03] LABS: Glucose Point of Care 93 mg/dL (70-110)
[2023-05-19] MEDS: acetaminophen 500 mg Tablet PO (20:18)
[2023-05-19 20:20] LABS: Glucose Point of Care 122 mg/dL (70-110)
[2023-05-20 00:16] LABS: Glucose Point of Care 124 mg/dL (70-110)
[2023-05-20 04:29] LABS: Glucose Point of Care 116 mg/dL (70-110)
[2023-05-20 06:00] VITALS: BP 133/87; PULSE 71; RESP 16; TEMP 36.8; O2SAT 95; BMI 46.1
--- NOTE | 2023-05-20 07:31 | P.NPUPN_ITS ---
Subjective NPU 2 Subjective: Patient presented today reporting that she is doing okay. She is feeling better from her short stent in the ICU and has had no additional events. She reports that home health will be in place when she is discharged. We had an opportunity to reach out to them and it appears they have not been actually formally excepted and there are questions about diagnoses to get full acceptance. They did say that they would go in the next day after the appropriate information is provided such that a discharge on Monday could be met with home health assistance on Monday. She also reports having a good friend they could stay with her and is planning on staying with her until things get more stable. We discussed the likelihood for discharge on Monday. Mental Status Exam 2 MSE Comments: This is an obese versus morbidly obese white female in hospital scrubs with adequate grooming and eye contact. No abnormal movements set for mild psychomotor retardation. Cooperative with exam in no acute distress. Speech was normal rate and volume. Mood described as a little better, affect congruent. Thought process organized. Thought content: Patient denied suicidal or homicidal ideation, no delusions reported or noted, she denied any auditory or visual hallucinations. Attention and concentration appeared intact and memory was more reliable but none were formally tested. She is alert and oriented x 3. Insight and judgment are improving impulse control appears limited but improving. Vitals/I&O/Wt Last Vital Signs Temp 98.2 F 05/20/23 06:00 Pulse 71 05/20/23 06:00 Resp 16 05/20/23 06:00 BP 133/87 05/20/23 06:00 Pulse Ox 95 05/20/23 06:00 O2 Del Method Room Air 05/20/23 06:00 Weight last 48 hrs Weight 122.016 kg Weight 122.016 kg Data NPU 05/19/23 04:53 05/19/23 04:53 A&P Assessment and plan (1) Major depressive disorder, recurrent: (2) Depression with suicidal ideation: (3) PTSD (post-traumatic stress disorder): (4) Overdose: (5) Falls frequently: (6) Essential hypertension: (7) Generalized seizure: (8) Hyperlipidemia: (9) COPD (chronic obstructive pulmonary disease): (10) Iron deficiency: (11) Cannabis use, unspecified, uncomplicated: Plan 47-year-old female admitted after overdose with a history of PTSD, and major depressive disorder along with anxiety currently on multiple medications with reports of seizures. Patient would likely benefit from a brief hospital stay with more careful examination of her medication regimen as she appears to be on excess amounts of medications that may put her at risk of significant negative outcomes both psychiatrically and medically. 1. Encourage individual, group and milieu therapy. 2. Recommend sober living treatment at the highest level of care to which the patient is willing to commit. 3. Continue q-15 minute checks for safety.? 4.? Restart current medications with some immediate changes to be made including reduction in seroquel to 600mg at night and hold on desipramine (concern for serotonin syndrome) with pristiq. 5.? Will attempt to gather collateral information. 6. Will work with outpatient team to explore appropriate discharge planning. Consider discharge on Monday with home health options put in place. Involuntary Hold Information 2 96 Hour Hold: 96 Hour Involuntary Admission: No 96 Hour Hold Ending Date: 07/24/22 96 Hour Hold Ending Time: 04:05 Attestations NPU 2 Medical Necessity Statement*: Inpatient hospitalization is medically necessary and deemed to ?be ?the clinically appropriate intervention ?at this time.? We will monitor/initiate medications and make changes as indicated.? The patient?s likely length of stay 2-3 days. Coding Level of Care Code Acute Code for Chg Fwd Diagnoses Major depressive disorder, recurrent F33.9 Depression with suicidal ideation F32.A; R45.851 PTSD (post-traumatic stress disorder) F43.10 Overdose T50.901A Falls frequently R29.6 Essential hypertension I10 Generalized seizure R56.9 Hyperlipidemia E78.5 COPD (chronic obstructive pulmonary disease) J44.9 Iron deficiency E61.1 Cannabis use, unspecified, uncomplicated F12.90
[2023-05-20] MEDS: levETIRAcetam 500 mg Tablet 1000 MG PO ×2 (08:12→20:18)
[2023-05-20] MEDS: metoprolol tartrate 50 mg Tablet 100 MG PO ×2 (08:12→20:18)
[2023-05-20] MEDS: atorvastatin 40 mg Tablet 20 MG PO (08:12)
[2023-05-20] MEDS: ALPRAZolam 0.5 mg Tablet 2 MG PO ×3 (08:12→20:18)
[2023-05-20] MEDS: ARIPiprazole 10 mg Tablet 5 MG PO (08:13)
[2023-05-20] MEDS: desvenlafaxine 50 mg Tablet 100 MG PO (08:13)
[2023-05-20] MEDS: apixaban 5 mg Tablet PO ×2 (08:13→20:18)
[2023-05-20] MEDS: pantoprazole DR 40 mg Tablet PO (08:13)
[2023-05-20 08:15] LABS: Glucose Point of Care 114 mg/dL (70-110)
[2023-05-20 09:02] LABS: Levetiracetam Immunoassy 22.3 mcg/mL (6.0-46.0)
[2023-05-20 14:00] VITALS: BP 136/83; PULSE 83; RESP 14; TEMP 36.6; O2SAT 96
[2023-05-20 15:55] LABS: Glucose Point of Care 99 mg/dL (70-110)
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
--- NOTE | 2023-05-20 17:00 | PC.NURSE ---
This nurse contacted [facility] nurse named Tamica at patient's request. Phone number: [phone]. Nurse informed this nurse that the patient hasn't been approved for home health yet, but if discharge paperwork and referral was sent to them from this NPU visit, patient might would be likely to get accepted into the home health. The fax number is [phone]. The on-call nurse number is [phone]. This nurse talked with patient's friend Stanley Reyez, phone number [phone]. Stanley said that patient could stay with her until she was seen by home health.
[2023-05-20 20:06] VITALS: BP 119/79; PULSE 71; RESP 15; TEMP 36.7; O2SAT 97
[2023-05-20 20:08] LABS: Glucose Point of Care 104 mg/dL (70-110)
[2023-05-21 00:10] LABS: Glucose Point of Care 99 mg/dL (70-110)
[2023-05-21 04:24] LABS: Glucose Point of Care 114 mg/dL (70-110)
[2023-05-21 06:00] VITALS: BP 105/72; PULSE 73; RESP 15; TEMP 36.3; O2SAT 94
--- NOTE | 2023-05-21 07:49 | P.NPUPN_ITS ---
Subjective NPU 2 Subjective: Patient presented today reporting that she is doing better. She feels that she is ready to go home and we talked about the things we want to have in place prior to discharge. She does have a friend who we were able to speak with who is going to stay with her to allow any home health options to be in place before she is alone. We discussed the fact that we will work on a discharge for tomorrow but make sure that aftercare and proper resources are in place. She denied any side effects to medications. Mental Status Exam 2 MSE Comments: This is an obese versus morbidly obese white female in hospital scrubs with adequate grooming and eye contact. No abnormal movements set for mild psychomotor retardation. Cooperative with exam in no acute distress. Speech was normal rate and volume. Mood described as better, I think I am ready to go, affect congruent, but a little frustrated. Thought process organized. Thought content: Patient denied suicidal or homicidal ideation, no delusions reported or noted, she denied any auditory or visual hallucinations. Attention and concentration appeared intact and memory was more reliable but none were formally tested. She is alert and oriented x 3. Insight and judgment are improving impulse control appears limited but improving. Vitals/I&O/Wt Last Vital Signs Temp 97.4 F L 05/21/23 06:00 Pulse 73 05/21/23 06:00 Resp 15 05/21/23 06:00 BP 105/72 05/21/23 06:00 Pulse Ox 94 05/21/23 06:00 O2 Del Method Room Air 05/21/23 06:00 Weight last 48 hrs Weight 122.016 kg Weight 122.016 kg Weight 122.016 kg Data NPU 05/19/23 04:53 05/19/23 04:53 A&P Assessment and plan (1) Major depressive disorder, recurrent: (2) Depression with suicidal ideation: (3) PTSD (post-traumatic stress disorder): (4) Overdose: (5) Falls frequently: (6) Essential hypertension: (7) Generalized seizure: (8) Hyperlipidemia: (9) COPD (chronic obstructive pulmonary disease): (10) Iron deficiency: (11) Cannabis use, unspecified, uncomplicated: Plan 47-year-old female admitted after overdose with a history of PTSD, and major depressive disorder along with anxiety currently on multiple medications with reports of seizures. Patient would likely benefit from a brief hospital stay with more careful examination of her medication regimen as she appears to be on excess amounts of medications that may put her at risk of significant negative outcomes both psychiatrically and medically. 1. Encourage individual, group and milieu therapy. 2. Recommend sober living treatment at the highest level of care to which the patient is willing to commit. 3. Continue q-15 minute checks for safety.? 4.? Restart current medications with some immediate changes to be made including reduction in seroquel to 600mg at night and hold on desipramine (concern for serotonin syndrome) with pristiq. 5.? Will attempt to gather collateral information. 6. Will work with outpatient team to explore appropriate discharge planning. Consider discharge tomorrow with home health options put in place. Involuntary Hold Information 2 96 Hour Hold: 96 Hour Involuntary Admission: No 96 Hour Hold Ending Date: 07/24/22 96 Hour Hold Ending Time: 04:05 Attestations NPU 2 Medical Necessity Statement*: Inpatient hospitalization is medically necessary and deemed to ?be ?the clinically appropriate intervention ?at this time.? We will monitor/initiate medications and make changes as indicated.? The patient?s likely length of stay 1-2 days. Coding Level of Care Code Acute Code for Chg Fwd Diagnoses Major depressive disorder, recurrent F33.9 Depression with suicidal ideation F32.A; R45.851 PTSD (post-traumatic stress disorder) F43.10 Overdose T50.901A Falls frequently R29.6 Essential hypertension I10 Generalized seizure R56.9 Hyperlipidemia E78.5 COPD (chronic obstructive pulmonary disease) J44.9 Iron deficiency E61.1 Cannabis use, unspecified, uncomplicated F12.90
--- NOTE | 2023-05-21 08:11 | PC.NURSE ---
PT CURRENTLY DENIES SI/HI/AH/VH. PT IS WITHDRAWN AND EVASIVE. PT STATED TO THIS NURSE I HAVE NOT PEED IN 2 DAYS OTHER THAN LITTLE DRIBBLES. PT ALSO STATED I HAVE BEEN TELLING THEM I HAVE HAD BMS BUT I REALLY HAVE NOT. I DO NOT KNOW WHEN THE LAST TIME I HAD A BOWEL MOVEMENT LAST IS. THIS NURSE INFORMED PHYSICIAN AND A BLADDER SCAN HAS BEEN ORDERED. PT WAS COOPERATIVE WITH ASSESSMENT.
[2023-05-21] MEDS: ARIPiprazole 10 mg Tablet 5 MG PO (08:40)
[2023-05-21] MEDS: pantoprazole DR 40 mg Tablet PO (08:40)
[2023-05-21] MEDS: atorvastatin 40 mg Tablet 20 MG PO (08:40)
[2023-05-21] MEDS: apixaban 5 mg Tablet PO ×2 (08:41→20:08)
[2023-05-21] MEDS: desvenlafaxine 50 mg Tablet 100 MG PO (08:42)
[2023-05-21] MEDS: metoprolol tartrate 50 mg Tablet 100 MG PO ×2 (08:42→20:08)
[2023-05-21] MEDS: ALPRAZolam 0.5 mg Tablet 2 MG PO ×3 (08:42→20:09)
[2023-05-21] MEDS: levETIRAcetam 500 mg Tablet 1000 MG PO ×2 (08:42→20:08)
[2023-05-21 08:55] LABS: Glucose Point of Care 128 mg/dL (70-110)
[2023-05-21 09:19] LABS: Add Urine Microscopic? YES; Bacteria Urine 2+ /hpf; Bilirubin Urine Neg (Negative); Blood Urine Neg (Negative); Glucose Urine UA Norm (Normal); Ketones Urine Negative (Negative); Leukocyte Esterase Urine Trace (Negative); Nitrate Urine Negative (Negative); Protein Urine Neg (Negative); Squamous Epithelial Cell Urine 15-25 /hpf (0-5); Urine Appearance Hazy (CLEAR); Urine Color Yellow (Yellow); Urobilinogen Urine Norm (Negative); pH Urine 7 (5-7)
[2023-05-21 09:20] LABS: Add Urine Culture? No
[2023-05-21] MEDS: sennosides-docusate Tablet 1 TAB PO (10:01)
[2023-05-21 11:58] LABS: Glucose Point of Care 111 mg/dL (70-110)
[2023-05-21 14:00] VITALS: BP 135/85; PULSE 75; RESP 14; TEMP 36.6; O2SAT 97
[2023-05-21 16:35] LABS: Glucose Point of Care 90 mg/dL (70-110)
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
[2023-05-21 20:09] LABS: Glucose Point of Care 104 mg/dL (70-110)
[2023-05-21 20:20] VITALS: BP 130/85; PULSE 89; RESP 18; O2SAT 96
[2023-05-22 00:28] LABS: Glucose Point of Care 107 mg/dL (70-110)
[2023-05-22 05:40] LABS: Glucose Point of Care 115 mg/dL (70-110)
[2023-05-22 06:00] VITALS: BP 138/86; PULSE 97; RESP 16; O2SAT 95; BMI 46.1
--- NOTE | 2023-05-22 07:57 | PC.NURSE ---
PT CURRENTLY DENIES SI/HI/AH/VH. PT WAS WILLING AND COOPERATIVE WITH ASSESSMENT. WHEN ASKED IF THE PT IS URINATING NOW PT STATED OH YES, I THINK IT WAS JUST THAT I HAD NOT BEEN DRINKING ENOUGH. PT WAS ASKED ABOUT HER BOWEL MOVEMENTS AND PT STATED I THINK I HAD ONE ABOUT 3 AM. PT CURRENT NEEDS ARE MET AT THIS TIME.
[2023-05-22] MEDS: atorvastatin 40 mg Tablet 20 MG PO (07:59)
[2023-05-22] MEDS: sennosides-docusate Tablet 1 TAB PO (07:59)
[2023-05-22] MEDS: ARIPiprazole 10 mg Tablet 5 MG PO (07:59)
[2023-05-22] MEDS: levETIRAcetam 500 mg Tablet 1000 MG PO (08:00)
[2023-05-22] MEDS: apixaban 5 mg Tablet PO (08:00)
[2023-05-22] MEDS: pantoprazole DR 40 mg Tablet PO (08:00)
[2023-05-22] MEDS: metoprolol tartrate 50 mg Tablet 100 MG PO (08:00)
[2023-05-22] MEDS: desvenlafaxine 50 mg Tablet 100 MG PO (08:01)
[2023-05-22] MEDS: ALPRAZolam 0.5 mg Tablet 2 MG PO (08:01)
[2023-05-22 08:02] LABS: Glucose Point of Care 141 mg/dL (70-110)
[2023-05-22 09:12] VITALS: BP 138/86; PULSE 97; RESP 16; O2SAT 95
[2023-05-22 11:59] LABS: Glucose Point of Care 112 mg/dL (70-110)
--- NOTE | 2023-05-22 12:02 | DCPLANNER ---
. Imm was printed and given to pt and copy placed in file.
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
== END 2023-05-22 12:24 | disposition home or self-care (01) | DRG 885 ==
LOC: ER 22:11 → ER IP 23:06 → NP 05-17 08:13 → ICU 05-18 22:29 → NP 05-19 12:48
PROVIDERS: Internal Medicine; Psychiatry & Neurology Psychiatry; Admitting Provider Internal Medicine; Emergency Provider Emergency Medicine; PCP Family Medicine; Visit Provider Student in an Organized Health Care Education/Training Program
DX: F33.2 Major depressive disorder, recurrent severe without psychotic features (principal); B37.89 Other sites of candidiasis; K59.09 Other constipation; J44.9 Chronic obstructive pulmonary disease, unspecified; I10 Essential (primary) hypertension; K21.9 Gastro-esophageal reflux disease without esophagitis; Z86.718 Personal history of other venous thrombosis and embolism; Z79.01 Long term (current) use of anticoagulants; Z86.711 Personal history of pulmonary embolism; I25.2 Old myocardial infarction; Z86.73 Personal history of transient ischemic attack (TIA), and cerebral infarction without residual deficits; G47.33 Obstructive sleep apnea (adult) (pediatric); E16.2 Hypoglycemia, unspecified; F60.3 Borderline personality disorder; F12.90 Cannabis use, unspecified, uncomplicated; F13.90 Sedative, hypnotic, or anxiolytic use, unspecified, uncomplicated; R29.6 Repeated falls; N93.9 Abnormal uterine and vaginal bleeding, unspecified; R32 Unspecified urinary incontinence; F43.10 Post-traumatic stress disorder, unspecified; F41.9 Anxiety disorder, unspecified; E61.1 Iron deficiency; E78.2 Mixed hyperlipidemia; G43.909 Migraine, unspecified, not intractable, without status migrainosus; Z62.810 Personal history of physical and sexual abuse in childhood; T42.4X2A Poisoning by benzodiazepines, intentional self-harm, initial encounter; T38.3X2A Poisoning by insulin and oral hypoglycemic [antidiabetic] drugs, intentional self-harm, initial encounter; R56.9 Unspecified convulsions
CPT/HCPCS: 36415; 36416; 51798; 70551; 80048; 80053; 80177; 80306; 80307; 81001; 81025; 82607; 82962; 83036; 83735; 84443; 85025; 87426; 96361; 96374; 97150; 97165; 99291; C9254; J1610; J1953; J7799; Q0162

== ENCOUNTER → 2023-05-29 16:03 | Outpatient (BNVA) | payer MEDICARE, SELFPAY | PROVIDERS: PCP Family Medicine; Visit Provider Family Medicine | DX: R05.9 Cough, unspecified (principal); E78.2 Mixed hyperlipidemia; J01.00 Acute maxillary sinusitis, unspecified; E11.9 Type 2 diabetes mellitus without complications; F33.2 Major depressive disorder, recurrent severe without psychotic features; Z09 Encounter for follow-up examination after completed treatment for conditions other than malignant neoplasm | CPT/HCPCS: 87426 ==

== ENCOUNTER 2023-06-21 13:27 | Oncology outpatient (recurring) (ONCR) | payer MEDICARE, SELFPAY | END 2023-07-19 23:59 | disposition home or self-care (01) | PROVIDERS: PCP Family Medicine; Visit Provider Internal Medicine Hematology & Oncology | DX: D64.9 Anemia, unspecified (principal); N93.9 Abnormal uterine and vaginal bleeding, unspecified; Z79.899 Other long term (current) drug therapy; Z53.9 Procedure and treatment not carried out, unspecified reason | CPT/HCPCS: 99214 ==

== ENCOUNTER → 2023-06-28 17:06 | Outpatient (BNVA) | payer MEDICARE, SELFPAY | PROVIDERS: PCP Family Medicine; Visit Provider Internal Medicine Medical Oncology | DX: D64.9 Anemia, unspecified (principal) | CPT/HCPCS: 80053; 82607; 82728; 83550; 83921; 85025 ==

== ENCOUNTER → 2023-08-02 15:00 | Outpatient (BNVA) | payer MEDICARE, SELFPAY | PROVIDERS: PCP Family Medicine; Visit Provider Family Medicine | DX: R56.9 Unspecified convulsions (principal); I10 Essential (primary) hypertension; E78.2 Mixed hyperlipidemia; E11.9 Type 2 diabetes mellitus without complications; Z79.899 Other long term (current) drug therapy | CPT/HCPCS: 80053; 80061; 83036; 84443; 85025 ==

== ENCOUNTER 2023-08-20 11:35 | Emergency (ER) | payer MEDICARE, SELFPAY ==
[2023-08-20 11:37] VITALS: BP 137/97; PULSE 94; TEMP 36.6; O2SAT 95; BMI 51.0
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
[2023-08-20 13:30] VITALS: BP 136/86; PULSE 86; RESP 17; O2SAT 97
== END 2023-08-20 13:40 | disposition home or self-care (01) ==
PROVIDERS: Emergency Provider Emergency Medicine; PCP Family Medicine
DX: S01.311A Laceration without foreign body of right ear, initial encounter (principal); S00.93XA Contusion of unspecified part of head, initial encounter; E11.9 Type 2 diabetes mellitus without complications; J44.9 Chronic obstructive pulmonary disease, unspecified; Z86.73 Personal history of transient ischemic attack (TIA), and cerebral infarction without residual deficits; I10 Essential (primary) hypertension; Y04.2XXA Assault by strike against or bumped into by another person, initial encounter
CPT/HCPCS: 12013; 70450; 72072; 72100; 72125; 73110; 73130; 73562; 99284

== ENCOUNTER 2023-08-28 10:10 | Emergency (ER) | payer MEDICARE, SELFPAY ==
[2023-08-28 10:16] VITALS: BP 129/82; PULSE 68; RESP 16; TEMP 37.1; O2SAT 100; BMI 51.0
[2023-08-28 11:33] VITALS: BP 138/93; PULSE 66; O2SAT 99
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
[2023-08-28 12:02] VITALS: BP 145/94; PULSE 64; O2SAT 97
[2023-08-28 12:09] VITALS: BP 145/94; PULSE 63; O2SAT 98
== END 2023-08-28 12:10 | disposition home or self-care (01) ==
PROVIDERS: Emergency Provider Family Medicine; PCP Family Medicine
DX: S00.03XA Contusion of scalp, initial encounter (principal); Y04.2XXA Assault by strike against or bumped into by another person, initial encounter; Z79.01 Long term (current) use of anticoagulants; E11.9 Type 2 diabetes mellitus without complications; J44.9 Chronic obstructive pulmonary disease, unspecified; Z86.73 Personal history of transient ischemic attack (TIA), and cerebral infarction without residual deficits; I10 Essential (primary) hypertension; Z77.22 Contact with and (suspected) exposure to environmental tobacco smoke (acute) (chronic)
CPT/HCPCS: 99281

== ENCOUNTER → 2023-09-05 15:38 | Outpatient (BNVA) | payer MEDICARE, SELFPAY | PROVIDERS: PCP Family Medicine; Visit Provider Family Medicine | DX: N39.43 Post-void dribbling (principal); Z48.02 Encounter for removal of sutures | CPT/HCPCS: 81000 ==

== ENCOUNTER → 2023-09-19 15:48 | Outpatient (BNVA) | payer MEDICARE, MEDICAID, SELFPAY | PROVIDERS: PCP Family Medicine; Visit Provider Psychiatry & Neurology Neurology | DX: R56.9 Unspecified convulsions (principal); R41.82 Altered mental status, unspecified | CPT/HCPCS: 95812; 95813 ==

== ENCOUNTER 2023-10-05 21:36 | Emergency (ER) | payer MEDICARE, SELFPAY ==
[2023-10-05 21:37] VITALS: BP 126/80; PULSE 102; RESP 26; TEMP 36.6; O2SAT 94; BMI 51.6
--- NOTE | 2023-10-05 21:50 | ED_ITS ---
HPI - Seizure 2 General: Chief Complaint: Seizure Stated Complaint: Seizures Time Seen by Provider: 10/05/23 21:42 History of Present Illness: HPI Narrative: 48-year-old female presents emergency de partment stating that she had a seizure like activity today. Patient is awake alert and oriented EMS personnel state that she was able to respond during her seizure type activity. Patient states that while being interviewed upon initial arrival that she is starting to have another seizure and starts shaking her left and right upper extremities. She is able to continue to talk and answer questions appropriately. She is able to follow commands appropriately during her reported seizure type activity. Seizure History: Yes Review of Systems 2 General: Reports: 10 or more systems reviewed and unremarkable except in HPI and below Neuro: Reports: seizure-like activity PFSH ED 2 PFSH: Medical History Seizure disorder PTSD (post-traumatic stress disorder) Type 2 diabetes mellitus Anxiety Depression with suicidal ideation COPD (chronic obstructive pulmonary disease) Gastro-esophageal reflux disease without esophagitis Controlled with medication. Chronic constipation Controlled with medications followed by her primary care provider H/O deep venous thrombosis Reports having a DVT in 2019 and states her warfarin dose was increased after this. She follows up with Dr. Crespo -had second DVT in 11/2019 and was taken off warfarin and is now on eliquis Personal history of pulmonary embolism (2013) Depression Diagnosed at the age of 23 and has been on medication since then. She follows up with Dr. Benitez a psychiatrist and as well as therapy in [place]. She currently denies suicidal/homicidal ideation. Obstructive sleep apnea TIA (transient ischemic attack) Reports having had a TIA in 2019. Denies any neurological deficits. Followed by her primary care provider. Essential (primary) hypertension Diagnosed in 2019 and she follows up with Dr. Anderson and cardiology. Surgical History Status post conization of cervix Office LEEP procedure performed by Dr. Zelaya in 2005 for MARY-2 on Pap smear. 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 Status post knee surgery 2018-open knee surgery for torn ACL Status post left breast lumpectomy Patient reports having had 3 lumpectomies of her left breast in 1999, 2007 and 2009 for benign lesions. Family History Mother Hypertension Heart disease Grandmother Hypertension maternal and paternal Breast cancer maternal, diagnosed at age 43 Colon cancer maternal, diagnosed at age 63 Father Hypertension Grandfather Hypertension maternal and paternal Heart disease maternal Denies family history of Ovarian cancer Diabetes Uterine cancer Thyroid disease Stroke Social History Smoking and tobacco/nicotine status: never used tobacco/nicotine Second hand smoke exposure: Yes Alcohol intake: former Substance/Drug Use: former Date of last use: 03/12/2023 Former substance use details: Marijuana Lives independently: Yes Housing: House Marital status: Single Number of children: 0 service: No Current occupational status: disabled Current gender identity: Female Special tereza needs: No Agree to transfusion: Yes Physical Exam 2 Narrative: EXAM NARRATIVE: Constitutional: the patient appears well nourished and with normal development. Vital signs reviewed as documented. HENMT: Normocephalic, atraumatic. External ears normal appearance without drainage. Nose without drainage, normal appearance. Mucus membranes moist. Neck is supple, No jugular venous distension, trachea is midline, no appreciable carotid bruits. No lymphadenopathy. No meningeal signs. Flexion, extension and lateral rotation is without pain. Eyes: Pupils are equal, round, reactive to light and accommodation. No scleral icterus. Extra-ocular movement are intact. Thorax is symmetrical and with equal rise and fall with respirations. Resp: Lungs are clear to auscultation. No wheezes, rales, crackles or ronchi at present. Cardio: Regular rate and rhythm. Positive S1, S2. No appreciable murmurs, rubs or gallops. GI: Abdominal exam reveals normal bowel sounds to all quadrants. No organomegaly. No obvious palpable masses noted. No hepatomegally appreciated. Soft, non-tender to palpation. Extremity: Extremities are non-edematous and both femoral and pedal pulses are 2+ and equal bilaterally. Moves all extremities well, sensation in all extremities. Neuro: Alert and oriented x4, person, place, time and situation. Cranial nerves II through XII are grossly intact, there is no focal neurological deficits that I can appreciate at present. Sensation intact to all extremities. 2-point discrimination intact. Light touch intact to all extremities. Motor strength in the upper and lower extremities are equal and bilateral 5/5. Psych: Cooperative, calm, normal thought process, appropriate judgment. Skin: No lesions, rashes. No gross abnormalities noted. Back: Symmetrical, no obvious deformity, No CVA tenderness Course 2 Vital Signs: Vital signs: Vital Signs Temperature 97.8 F 10/05/23 23:30 Pulse Rate 102 H 10/05/23 23:30 Respiratory Rate 26 H 10/05/23 23:30 Blood Pressure 126/80 10/05/23 23:30 Pulse Oximetry 94 10/05/23 23:30 MDM - Seizure MDM Narrative Medical decision making narrative: Physical exam completed and documented I did obtain laboratory evaluation, which were essentially unremarkable. Medical Records Attestation: I reviewed the patient's medical records. Lab Data Attestation: I reviewed the patient's lab results. 10/05/23 22:10 10/05/23 22:10 Labs: Laboratory Results WBC 6.46 10^3/uL (3.29-11.43) 10/05/23 22:10 RBC 4.38 10^6/uL (3.85-5.65) 10/05/23 22:10 Hgb 13.00 g/dL (11.27-16.99) 10/05/23 22:10 Hct 39.0 % (36-47) 10/05/23 22:10 MCV 89.0 fl (85-98) 10/05/23 22:10 MCH 29.7 pg (27-33) 10/05/23 22:10 MCHC 33.3 g/dL (30-55) 10/05/23 22:10 RDW 12.5 % (12.1-15.1) 10/05/23 22:10 Plt Count 261 10^3/cmm (157-399) 10/05/23 22:10 MPV 10.8 fL (7.4-10.4) H 10/05/23 22:10 Neut % (Auto) 45.2 % 10/05/23 22:10 Lymph % (Auto) 43.0 % 10/05/23 22:10 Rains % (Auto) 10.1 % 10/05/23 22:10 Eos % (Auto) 0.9 % 10/05/23 22:10 Baso % (Auto) 0.3 % 10/05/23 22:10 Neut # (Auto) 2.92 10^3/uL (1.8-7.7) 10/05/23 22:10 Lymph # (Auto) 2.8 10^3/uL (0.8-4.8) 10/05/23 22:10 Rains # (Auto) 0.7 10^3/uL (0.2-0.9) 10/05/23 22:10 Eos # (Auto) 0.1 10^3/uL (0.0-0.8) 10/05/23 22:10 Baso # (Auto) 0.0 10^3/uL (0.0-0.1) 10/05/23 22:10 Nucleated RBC % (auto) 0 % 10/05/23 22:10 Nucleated RBCs # 0.0 /100WBC 10/05/23 22:10 Sodium 135 mmol/L (136-145) L 10/05/23 22:10 Potassium 4.4 mmol/L (3.5-5.1) 10/05/23 22:10 Chloride 98 mmol/L (98-107) 10/05/23 22:10 Carbon Dioxide 27 mmol/L (22-29) 10/05/23 22:10 Anion Gap 14.4 (5-19) 10/05/23 22:10 BUN 11 mg/dL (6-20) 10/05/23 22:10 Creatinine 1.2 mg/dL (0.5-0.9) H 10/05/23 22:10 GFR Calculation 48.4 mL/min (90-130) L 10/05/23 22:10 Glucose 202 mg/dL (65-115) H 10/05/23 22:10 Calculated Osmolality 285 mOsm/kg (285-295) 10/05/23 22:10 Lactic Acid 2.0 mmol/L (0.5-2.2) 10/05/23 22:20 Calcium 9.6 mg/dL (8.5-10.5) 10/05/23 22:10 Total Bilirubin 0.3 mg/dL (0.15-1.2) 10/05/23 22:10 AST 19 U/L (0-32) 10/05/23 22:10 ALT 24 U/L (0-33) 10/05/23 22:10 Alkaline Phosphatase 49 U/L (35-105) 10/05/23 22:10 Total Protein 7.1 g/dL (6.6-8.7) 10/05/23 22:10 Albumin 4.1 g/dL (3.5-5.2) 10/05/23 22:10 Globulin 3.0 g/dL (1.3-4.6) 10/05/23 22:10 Prolactin 33.95 ng/mL (4.8-23.3) H 10/05/23 22:10 No radiology studies performed this visit Discharge Plan Discharge Patient Disposition: Home Clinical Impression: Functional neurological symptom disorder with abnormal movement Condition: Stable Prescriptions: No Action albuterol sulfate [Ventolin HFA] 90 mcg/actuation HFA aerosol inhaler 2 puff INHALATION QID PRN (Reason: Shortness Of Breath) aripiprazole [Abilify] 5 mg tablet 5 mg PO DAILY ondansetron 4 mg tablet,disintegrating See Rx Instructions .ROUTE .COMPLEX Qty: 7 0RF Dose Instruction: DISSOLVE ONE TABLET in MOUTH EVERY 8 HOURS NEEDED Rx Instructions: DISSOLVE ONE TABLET in MOUTH EVERY 8 HOURS NEEDED coenzyme Q10 [CoQ-10] 100 mg capsule 100 mg PO DAILY Qty: 100 3RF (DME) Blood Glucose Test Strip See Rx Instructions .Route Qty: 100 3RF Rx Instructions: As directed; pt to test 1 x day and prn hypoglycemia potassium chloride 20 mEq tablet,ER particles/crystals 20 meq PO DAILY Qty: 30 3RF fenofibrate 160 mg tablet 160 mg PO DAILY Qty: 30 3RF omeprazole 40 mg capsule,delayed release(DR/EC) 40 mg PO DAILY Qty: 30 3RF metoprolol tartrate 100 mg tablet 100 mg PO BID Qty: 60 3RF ferrous sulfate 325 mg (65 mg iron) tablet 325 mg PO QAM Qty: 30 3RF isosorbide dinitrate 20 mg tablet 20 mg PO BID Qty: 60 3RF Eliquis 5 mg tablet 5 mg PO BID Qty: 60 3RF atorvastatin 40 mg tablet 20 mg PO DAILY 30 Days Qty: 15 1RF cyanocobalamin (vitamin B-12) 1,000 mcg tablet See Rx Instructions .ROUTE .COMPLEX Qty: 30 3RF Dose Instruction: TAKE 1 TABLET BY mouth DAILY Rx Instructions: TAKE 1 TABLET BY mouth DAILY levetiracetam 500 mg tablet 1,000 mg PO BID Qty: 120 2RF alprazolam [Xanax] 2 mg Tablet 2 mg PO TID PRN (Reason: Anxiety) ergocalciferol (vitamin D2) 1,250 mcg (50,000 unit) capsule 1,250 mcg PO Q7D Rx Instructions: on Monday Pristiq 100 mg tablet extended release 24 hr 100 mg PO QAM Discharge Orders: Discharge ED (Routine); Ordered 10/05/23 Ordered By: Cristiano Burger Referrals: Pham Jackman MD [Primary Care Provider] - Discharge Diet: Usual diet Discharge Activity: Resume usual activity Patient Instructions: Opioid Safety, Pain Management Activity Restrictions/Additional Instructions: Activity Restrictions/Additional Instructions: Thank you for choosing [facility] for your healthcare needs today. Please realize that you were seen in the Emergency Department and that we are providing you with an emergency medical screening exam and this may not be a complete and all inclusive of all the testing and or medical work-up that you may need to determine your ailment or severity of your illness. It is very important that you follow-up as instructed with your Primary care provider or Specialist for additional evaluation and to discuss your medical treatment plan. Coding Level of Care Code ED Information Technology Internship for Marci Helms
[2023-10-05 22:15] LABS: Basophils % 0.3 %; Eosinophils # 0.1 10^3/uL (0.0-0.8); Eosinophils % 0.9 %; Lymphocytes # 2.8 10^3/uL (0.8-4.8); Mean Corpuscular HGB Conc 33.3 g/dL (30-55); Mean Corpuscular Hemoglobin 29.7 pg (27-33); Mean Platelet Volume 10.8 fL (7.4-10.4); Monocytes # 0.7 10^3/uL (0.2-0.9); Monocytes % 10.1 %; Neutrophils # 2.92 10^3/uL (1.8-7.7); Neutrophils % 45.2 %; Nucleated Red Blood Cells % 0 %; Platelet Count 261 10^3/cmm (157-399); Red Blood Count 4.38 10^6/uL (3.85-5.65); Red Cell Distribution Width 12.5 % (12.1-15.1); White Blood Count 6.46 10^3/uL (3.29-11.43)
[2023-10-05 22:42] LABS: Alanine Aminotransferase 24 U/L (0-33); Albumin Level 4.1 g/dL (3.5-5.2); Alkaline Phosphatase 49 U/L (35-105); Anion Gap 14.4 (5-19); Aspartate Amino Transferase 19 U/L (0-32); Blood Urea Nitrogen 11 mg/dL (6-20); Calcium 9.6 mg/dL (8.5-10.5); Carbon Dioxide 27 mmol/L (22-29); Chloride 98 mmol/L (98-107); Creatinine Clr Calc Pharmacy 80.8547; Glomerular Filtration Rate 48.4 mL/min (90-130); Glucose 202 mg/dL (65-115); Osmolality Calculated 285 mOsm/kg (285-295); Potassium 4.4 mmol/L (3.5-5.1); Sodium 135 mmol/L (136-145); Total Bilirubin 0.3 mg/dL (0.15-1.2); Total Protein 7.1 g/dL (6.6-8.7)
[2023-10-05 23:30] VITALS: BP 126/80; PULSE 102; RESP 26; TEMP 36.6; O2SAT 94
[2023-10-06 02:04] LABS: Prolactin 33.95 ng/mL (4.8-23.3)
== END 2023-10-05 23:31 | disposition home or self-care (01) ==
PROVIDERS: Emergency Provider Internal Medicine; PCP Family Medicine
DX: F44.4 Conversion disorder with motor symptom or deficit (principal); Z79.01 Long term (current) use of anticoagulants; Z77.22 Contact with and (suspected) exposure to environmental tobacco smoke (acute) (chronic); E11.9 Type 2 diabetes mellitus without complications; J44.9 Chronic obstructive pulmonary disease, unspecified; I10 Essential (primary) hypertension; Z86.73 Personal history of transient ischemic attack (TIA), and cerebral infarction without residual deficits
CPT/HCPCS: 80053; 83605; 84146; 85025; 99283

== ENCOUNTER → 2023-10-19 11:13 | Outpatient (BNVA) | payer MEDICARE, SELFPAY | PROVIDERS: PCP Family Medicine; Visit Provider Family Medicine | DX: R50.9 Fever, unspecified (principal); R05.9 Cough, unspecified; J01.00 Acute maxillary sinusitis, unspecified | CPT/HCPCS: 87071; 87400; 87880 ==

== ENCOUNTER 2023-10-24 10:07 | Oncology outpatient (recurring) (ONCR) | payer MEDICARE, SELFPAY ==
[2023-10-24 10:52] LABS: Basophils % 0.7 %; Eosinophils # 0.1 10^3/uL (0.0-0.8); Hematocrit 42.1 % (36-47); Lymphocytes # 2.3 10^3/uL (0.8-4.8); Lymphocytes % 39.7 %; Mean Corpuscular HGB Conc 33.5 g/dL (30-55); Mean Corpuscular Hemoglobin 30.1 pg (27-33); Mean Platelet Volume 10.9 fL (7.4-10.4); Monocytes # 0.4 10^3/uL (0.2-0.9); Monocytes % 7.3 %; Neutrophils # 2.91 10^3/uL (1.8-7.7); Neutrophils % 50.8 %; Nucleated Red Blood Cells % 0 %; Platelet Count 315 10^3/cmm (157-399); Red Blood Count 4.68 10^6/uL (3.85-5.65); Red Cell Distribution Width 12.6 % (12.1-15.1); White Blood Count 5.74 10^3/uL (3.29-11.43)
[2023-10-24 11:32] LABS: Alanine Aminotransferase 44 U/L (0-33); Albumin Level 4.3 g/dL (3.5-5.2); Alkaline Phosphatase 61 U/L (35-105); Anion Gap 16.2 (5-19); Aspartate Amino Transferase 30 U/L (0-32); Blood Urea Nitrogen 12 mg/dL (6-20); Calcium 9.3 mg/dL (8.5-10.5); Carbon Dioxide 26 mmol/L (22-29); Chloride 103 mmol/L (98-107); Ferritin 292 ng/mL (15-150); Globulin 3.3 g/dL (1.3-4.6); Glomerular Filtration Rate 59.7 mL/min (90-130); Glucose 165 mg/dL (65-115); Iron 63 ug/dL (37-145); Osmolality Calculated 295 mOsm/kg (285-295); Percent Saturation 17.8 % (20-50); Potassium 4.2 mmol/L (3.5-5.1); Sodium 141 mmol/L (136-145); Total Bilirubin 0.3 mg/dL (0.15-1.2); Total Iron Binding Capacity 353 mcg/dl; Total Protein 7.6 g/dL (6.6-8.7); Unsaturated Iron Binding 290 ug/dL (112-347); Vitamin B12 1072 pg/mL (232-1245)
[2023-10-24 11:35] LABS: Creatinine Clr Calc Pharmacy 95.4152
[2023-10-27 12:04] LABS: Methylmalonic Acid 143 nmol/L (87-318)
== END 2023-11-17 23:59 | disposition home or self-care (01) ==
PROVIDERS: Internal Medicine Medical Oncology; PCP Family Medicine; Visit Provider Internal Medicine Hematology & Oncology
DX: D64.9 Anemia, unspecified (principal)
CPT/HCPCS: 36415; 80053; 82607; 82728; 83540; 83550; 83921; 85025; 99213

== ENCOUNTER 2024-01-16 03:11 | Emergency (ER) | payer MEDICARE, SELFPAY ==
[2024-01-16 03:12] VITALS: BP 97/82; PULSE 105; RESP 16; TEMP 36.6; O2SAT 95; BMI 46.1
--- NOTE | 2024-01-16 03:19 | ED_ITS ---
HPI - General Adult 2 General: Chief complaint: Seizure Stated complaint: seizure Time Seen by Provider: 01/16/24 03:19 History of Present Illness: Patient presents to the ER after getting up going to the bathroom and falling on the floor. Patient states she urinated herself and she had a seizure. Patient does see Dr. Marroquin and Dr. Abreu for seizures. EMS stated they got there she may have been postictal or just a little bit of slowed but she has been alert oriented and appropriate here during her stay in ER. Review of Systems 2 General: Reports: 10 or more systems reviewed and unremarkable except in HPI and below PFSH ED 2 PFSH: Medical History Seizure disorder PTSD (post-traumatic stress disorder) Type 2 diabetes mellitus Anxiety Depression with suicidal ideation COPD (chronic obstructive pulmonary disease) Gastro-esophageal reflux disease without esophagitis Controlled with medication. Chronic constipation Controlled with medications followed by her primary care provider H/O deep venous thrombosis Reports having a DVT in 2019 and states her warfarin dose was increased after this. She follows up with Dr. Crespo -had second DVT in 11/2019 and was taken off warfarin and is now on eliquis Personal history of pulmonary embolism (2013) Depression Diagnosed at the age of 23 and has been on medication since then. She follows up with Dr. Benitez a psychiatrist and as well as therapy in [place]. She currently denies suicidal/homicidal ideation. Obstructive sleep apnea TIA (transient ischemic attack) Reports having had a TIA in 2019. Denies any neurological deficits. Followed by her primary care provider. Essential (primary) hypertension Diagnosed in 2019 and she follows up with Dr. Anderson and cardiology. Surgical History Status post conization of cervix Office LEEP procedure performed by Dr. Zelaya in 2005 for MARY-2 on Pap smear. 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 Status post knee surgery 2017-open knee surgery for torn ACL Status post left breast lumpectomy Patient reports having had 3 lumpectomies of her left breast in 1999, 2007 and 2009 for benign lesions. Family History Mother Hypertension Heart disease Grandmother Hypertension maternal and paternal Breast cancer maternal, diagnosed at age 43 Colon cancer maternal, diagnosed at age 63 Father Hypertension Grandfather Hypertension maternal and paternal Heart disease maternal Denies family history of Ovarian cancer Diabetes Uterine cancer Thyroid disease Stroke Social History Smoking and tobacco/nicotine status: unknown if used tobacco/nicotine Second hand smoke exposure: Yes Alcohol intake: former Substance/Drug Use: former Date of last use: 03/12/2023 Former substance use details: Marijuana Lives independently: Yes Housing: House Marital status: Single Number of children: 0 service: No Current occupational status: disabled Current gender identity: Female Special tereza needs: No Agree to transfusion: Yes Physical Exam 2 Const: COMMON NORMALS: no acute distress, average body habitus, patient oriented x3, no limitations, healthy appearing, alert and well nourished HENMT: COMMON NORMALS: normocephalic, atraumatic, hearing grossly normal bilaterally, external ears normal, Normal external nose present and moist oral mucous membranes HEAD & SCALP: normocephalic and atraumatic NOSE: Normal external nose present EXTERNAL EAR: Yes external ears normal Eye: COMMON NORMALS: Equal, round and reactive pupils present, EOMs intact bilaterally, conjunctivae normal and no scleral icterus CONJUNCTIVA: Yes conjunctivae normal PUPIL: Yes Equal, round and reactive pupils present Neck/C-Spine: COMMON NORMALS: full ROM, no lymphadenopathy, supple, no meningeal signs, no JVD and Thyroid normal THYROID: Thyroid normal Chest: COMMONS NORMALS: normal inspection of the chest and normal palpation of entire chest wall Resp: COMMON NORMALS: normal respiratory effort, No retractions, No use of accessory muscles and clear to auscultation bilaterally AUSCULTATION: clear to auscultation bilaterally Cardio: COMMON NORMALS: no JVD, regular rate, regular rhythm, S1 normal heart sound present, S2 normal heart sound present, No gallops present (Cardio), No clicks present (Cardio), No murmurs present (Cardio) and No rub (Cardio) R ATE: regular rate RHYTHM: regular rhythm HEART SOUNDS: S1 normal heart sound present and S2 normal heart sound present GI: COMMON NORMALS: Normal to inspection, nondistended, normoactive bowel sounds present, Soft to palpation, non-tender, No hepatosplenomegaly present and no masses PALPATION: Yes Soft to palpation and Yes No hepatosplenomegaly present Neuro: COMMON NORMALS: patient oriented x3 SENSORIUM/ORIENTATION: Yes alert MENINGEAL SIGNS: Yes no meningeal signs Course 2 Vital Signs: Vital signs: Vital Signs Temperature 97.9 F 01/16/24 03:12 Pulse Rate 94 01/16/24 03:32 Respiratory Rate 18 01/16/24 03:32 Blood Pressure 116/78 01/16/24 03:32 Pulse Oximetry 95 01/16/24 03:32 Oxygen Delivery Me thod Room Air 01/16/24 03:32 MDM - General Adult Medical Decision Making Physical exam was performed while lab work was being obtained patient hit the call and said she is having a seizure where she was alert and oriented and able to converse and that she urinated on herself. Lab work was obtained which essentially unremarkable save for mildly elevated prolactin, 32.24, creatinine 1.1, patient be discharged home with a diagnosis of functional neurologic disorder. Lab Data 01/16/24 03:28 01/16/24 03:28 Laboratory Results WBC 4.67 10^3/uL (3.29-11.43) 01/16/24 03:28 RBC 4.44 10^6/uL (3.85-5.65) 01/16/24 03:28 Hgb 13.20 g/dL (11.27-16.99) 01/16/24 03:28 Hct 39.4 % (36-47) 01/16/24 03:28 MCV 88.7 fl (85-98) 01/16/24 03:28 MCH 29.7 pg (27-33) 01/16/24 03:28 MCHC 33.5 g/dL (30-55) 01/16/24 03:28 RDW 12.2 % (12.1-15.1) 01/16/24 03:28 Plt Count 212 10^3/cmm (157-399) 01/16/24 03:28 MPV 11.4 fL (7.4-10.4) H 01/16/24 03:28 Neut % (Auto) 42.0 % 01/16/24 03:28 Lymph % (Auto) 45.0 % 01/16/24 03:28 Crisp % (Auto) 10.7 % 01/16/24 03:28 Eos % (Auto) 1.5 % 01/16/24 03:28 Baso % (Auto) 0.4 % 01/16/24 03:28 Neut # (Auto) 1.96 10^3/uL (1.8-7.7) 01/16/24 03:28 Lymph # (Auto) 2.1 10^3/uL (0.8-4.8) 01/16/24 03:28 Crisp # (Auto) 0.5 10^3/uL (0.2-0.9) 01/16/24 03:28 Eos # (Auto) 0.1 10^3/uL (0.0-0.8) 01/16/24 03:28 Baso # (Auto) 0.0 10^3/uL (0.0-0.1) 01/16/24 03:28 Nucleated RBC % (auto) 0 % 01/16/24 03:28 Nucleated RBCs # 0.0 /100WBC 01/16/24 03:28 Sodium 135 mmol/L (136-145) L 01/16/24 03:28 Potassium 3.8 mmol/L (3.5-5.1) 01/16/24 03:28 Chloride 102 mmol/L (98-107) 01/16/24 03:28 Carbon Dioxide 23 mmol/L (22-29) 01/16/24 03:28 Anion Gap 13.8 (5-19) 01/16/24 03:28 BUN 8 mg/dL (6-20) 01/16/24 03:28 Creatinine 1.1 mg/dL (0.5-0.9) H 01/16/24 03:28 GFR Calculation 53.5 mL/min (90-130) L 01/16/24 03:28 Glucose 315 mg/dL (65-115) H 01/16/24 03:28 Calculated Osmolality 290 mOsm/kg (285-295) 01/16/24 03:28 Calcium 8.7 mg/dL (8.5-10.5) 01/16/24 03:28 Magnesium 1.6 mg/dL (1.7-2.3) L 01/16/24 03:28 Total Bilirubin 0.3 mg/dL (0.15-1.2) 01/16/24 03:28 AST 13 U/L (0-32) 01/16/24 03:28 ALT 22 U/L (0-33) 01/16/24 03:28 Alkaline Phosphatase 67 U/L (35-105) 01/16/24 03:28 Creatine Kinase 45 U/L (26-192) 01/16/24 03:28 Total Protein 6.1 g/dL (6.6-8.7) L 01/16/24 03:28 Albumin 3.5 g/dL (3.5-5.2) 01/16/24 03:28 Globulin 2.6 g/dL (1.3-4.6) 01/16/24 03:28 Prolactin 32.24 ng/mL (4.8-23.3) H 01/16/24 03:28 All radiology interpretation(s) finalized by discharge Discharge Plan Discharge Patient Disposition: Home Clinical Impression: Functional neurological symptom disorder with abnormal movement Condition: Stable Prescriptions: No Action albuterol sulfate [Ventolin HFA] 90 mcg/actuation HFA aerosol inhaler 2 puff INHALATION QID PRN (Reason: Shortness Of Breath) desipramine 100 mg tablet 100 mg PO DAILY quetiapine 300 mg tablet 300 mg PO DAILY oxcarbazepine 300 mg tablet 300 mg PO DAILY naproxen 500 mg tablet 500 mg PO BID Ed A-Hist DM 4-10-15 mg/5 mL liquid 5 ml PO Q6H PRN (Reason: cold symptoms) Qty: 160 0RF azithromycin [Zithromax Z-Dean] 250 mg tablet See Rx Instructions PO .COMPLEX Qty: 6 0RF Rx Instructions: take 500 mg today (day 1), then 250 mg for 4 days (days 2-5) PO aripiprazole [Abilify] 5 mg tablet 5 mg PO DAILY ondansetron 4 mg tablet,disintegrating See Rx Instructions .ROUTE .COMPLEX Qty: 7 0RF Dose Instruction: DISSOLVE ONE TABLET in MOUTH EVERY 8 HOURS NEEDED Rx Instructions: DISSOLVE ONE TABLET in MOUTH EVERY 8 HOURS NEEDED (DME) Blood Glucose Test Strip See Rx Instructions .Route Qty: 100 3RF Rx Instructions: As directed; pt to test 1 x day and prn hypoglycemia fenofibrate 160 mg tablet 160 mg PO DAILY Qty: 30 3RF potassium chloride 20 mEq tablet,ER particles/crystals 20 meq PO DAILY Qty: 30 3RF omeprazole 40 mg capsule,delayed release(DR/EC) 40 mg PO DAILY Qty: 30 3RF isosorbide dinitrate 20 mg tablet 20 mg PO BID Qty: 60 3RF levetiracetam 500 mg tablet 1,000 mg PO BID Qty: 120 2RF ferrous sulfate 325 mg (65 mg iron) tablet 325 mg PO QAM Qty: 30 3RF metoprolol tartrate 100 mg tablet 100 mg PO BID Qty: 60 3RF cyanocobalamin (vitamin B-12) 1,000 mcg tablet See Rx Instructions .ROUTE .COMPLEX Qty: 30 3RF Dose Instruction: TAKE 1 TABLET BY mouth DAILY Rx Instructions: TAKE 1 TABLET BY mouth DAILY atorvastatin 40 mg tablet See Rx Instructions .ROUTE .COMPLEX Qty: 15 1RF Dose Instruction: TAKE 1/2 TABLET BY MOUTH EVERY DAY Rx Instructions: TAKE 1/2 TABLET BY MOUTH EVERY DAY Eliquis 5 mg tablet See Rx Instructions .ROUTE .COMPLEX Qty: 60 3RF Dose Instruction: TAKE ONE TABLET BY MOUTH TWICE DAILY Rx Instructions: TAKE ONE TABLET BY MOUTH TWICE DAILY coenzyme Q10 100 mg capsule See Rx Instructions .ROUTE .COMPLEX Qty: 100 3RF Dose Instruction: TAKE ONE CAPSULE BY MOUTH DAILY Rx Instructions: TAKE ONE CAPSULE BY MOUTH DAILY alprazolam [Xanax] 2 mg Tablet 2 mg PO TID PRN (Reason: Anxiety) Pristiq 100 mg tablet extended release 24 hr 100 mg PO QAM Discharge Orders: Discharge ED (Routine); Ordered 01/16/24 Ordered By: Boy Guerrero Referrals: Pham Jackman MD [Primary Care Provider] - 7-10 days Patient Instructions: Conversion Disorder (ED) Activity Restrictions/Additional Instructions: Your lab work exam in the ER was unremarkable. Please follow-up with your primary care doc within next 7 to 10 days for further evaluation and treatment. Please call with Dr. Marroquin and Dr. Abreu's office to arrange follow-up for them as well. If your symptoms return or worsen please feel free to return to the ER. Coding Level of Care Code ED Furnace Utility Operator for Marci Helms
[2024-01-16 03:32] VITALS: BP 116/78; PULSE 94; RESP 18; O2SAT 95
[2024-01-16 03:32] LABS: Basophils % 0.4 %; Eosinophils # 0.1 10^3/uL (0.0-0.8); Eosinophils % 1.5 %; Hematocrit 39.4 % (36-47); Lymphocytes # 2.1 10^3/uL (0.8-4.8); Mean Corpuscular HGB Conc 33.5 g/dL (30-55); Mean Corpuscular Hemoglobin 29.7 pg (27-33); Mean Corpuscular Volume 88.7 fl (85-98); Mean Platelet Volume 11.4 fL (7.4-10.4); Monocytes # 0.5 10^3/uL (0.2-0.9); Monocytes % 10.7 %; Neutrophils # 1.96 10^3/uL (1.8-7.7); Nucleated Red Blood Cells % 0 %; Platelet Count 212 10^3/cmm (157-399); Red Blood Count 4.44 10^6/uL (3.85-5.65); Red Cell Distribution Width 12.2 % (12.1-15.1); White Blood Count 4.67 10^3/uL (3.29-11.43)
--- NOTE | 2024-01-16 03:36 | ECG_ITS ---
[facility] Test Date: 2024-01-16 Pat Name: Heladio Branch Department: Room: Gender: Female Project Manager/Team Coach: : 1975 Requested By: Boy Guerrero Order Number: [id number] Adalid MD: Kathy Anderson M.D. Measurements Intervals [place] Rate: 93 P: 43 LA: 177 QRS: 14 QRSD: 109 T: 58 QT: 361 QTc: 450 Interpretive Statements SINUS RHYTHM Compared to ECG 02/24/2023 22:56:30 Sinus tachycardia no longer present Electronically Signed On 01-17-2024 6:25:29 CDT by Kathy Anderson M.D. [id number]
[2024-01-16 03:50] VITALS: BP 108/77; PULSE 80; RESP 16; O2SAT 95
[2024-01-16 03:50] LABS: Alanine Aminotransferase 22 U/L (0-33); Albumin Level 3.5 g/dL (3.5-5.2); Alkaline Phosphatase 67 U/L (35-105); Anion Gap 13.8 (5-19); Aspartate Amino Transferase 13 U/L (0-32); Blood Urea Nitrogen 8 mg/dL (6-20); Calcium 8.7 mg/dL (8.5-10.5); Carbon Dioxide 23 mmol/L (22-29); Chloride 102 mmol/L (98-107); Creatine Phosphokinase 45 U/L (26-192); Creatinine Clr Calc Pharmacy 82.3478; Globulin 2.6 g/dL (1.3-4.6); Glomerular Filtration Rate 53.5 mL/min (90-130); Glucose 315 mg/dL (65-115); Magnesium 1.6 mg/dL (1.7-2.3); Osmolality Calculated 290 mOsm/kg (285-295); Potassium 3.8 mmol/L (3.5-5.1); Sodium 135 mmol/L (136-145); Total Bilirubin 0.3 mg/dL (0.15-1.2); Total Protein 6.1 g/dL (6.6-8.7)
[2024-01-16 04:20] VITALS: BP 134/87; PULSE 80; RESP 16; O2SAT 95
[2024-01-16 04:26] LABS: Prolactin 32.24 ng/mL (4.8-23.3)
[2024-01-16 05:00] VITALS: BP 108/77; PULSE 80; RESP 16; O2SAT 95
[2024-01-16 05:25] VITALS: BP 108/77; PULSE 83; RESP 16; O2SAT 96
== END 2024-01-16 05:26 | disposition home or self-care (01) ==
PROVIDERS: Emergency Provider Emergency Medicine; PCP Family Medicine
DX: F44.4 Conversion disorder with motor symptom or deficit (principal); Z79.01 Long term (current) use of anticoagulants; Z77.22 Contact with and (suspected) exposure to environmental tobacco smoke (acute) (chronic); E11.9 Type 2 diabetes mellitus without complications; J44.9 Chronic obstructive pulmonary disease, unspecified; I10 Essential (primary) hypertension; Z86.73 Personal history of transient ischemic attack (TIA), and cerebral infarction without residual deficits
CPT/HCPCS: 80053; 82550; 83735; 84146; 85025; 93005; 99284

== ENCOUNTER 2024-02-12 12:02 | Inpatient (IN) | payer MEDICARE, MEDICAID, SELFPAY ==
[2024-02-12] VITALS (8 sets, daily range): BP systolic 111–156; BP diastolic 68–98; PULSE 77–100; RESP 18–20; TEMP 36.3–36.6; O2SAT 94–99; BMI 46.2; BMI 50.5
--- NOTE | 2024-02-12 12:05 | ECG_ITS ---
[facility] Test Date: 2024-02-12 Pat Name: Heladio Branch Department: Room: Gender: Female Admission Nurse: : 1975 Requested By: Kranthi Lombardo Order Number: [id number] Adalid MD: Kathy Anderson M.D. Measurements Intervals [place] Rate: 98 P: 48 NM: 186 QRS: 31 QRSD: 106 T: 55 QT: 354 QTc: 452 Interpretive Statements SINUS RHYTHM Compared to ECG 01/16/2024 03:36:57 No significant changes Electronically Signed On 02-12-2024 22:55:12 CDT by Kathy Anderson M.D. [id number] f
--- NOTE | 2024-02-12 12:09 | XR_ITS ---
WS: [id number] Exam: XR chest 1V portable [id number] Date/Time of Exam: 02/12/2024 12:09 PM Reason For Exam: dizzy Comparison 02/24/2023. The lungs are clear and fully inflated. Normal cardiomediastinal silhouette. No pleural effusions. Un remarkable bony structures. XR/XR chest 1V portable [id number] IMPRESSION: 1. No acute cardiopulmonary finding.
--- NOTE | 2024-02-12 12:12 | ED_ITS ---
HPI - Syncope 2 General: Chief Complaint: Recheck/Abnormal Lab/Rx Stated Complaint: sob, syncope Time Seen by Provider: 02/12/24 12:04 History of Present Illness: Patient presents emerged part with complaint of generalized weakness and dizziness and shortness of breath this morning and a syncopal episode that may have been a syncopal seizure. Patient does have a history of seizures. She takes Keppra normal at the time of she took it this morning. She states that she is a diabetic but was taken off of her blood sugar medication, metformin, 2 months ago not placed on anything else and she does not know the reason why open she states that it was affecting her iron. She had blood sugar that was greater than 600 per EMS. Patient also states that she did not unable to urinate since yesterday morning despite having the urge to go. Related Data Home Medications Medication Instructions Recorded Confirmed albuterol sulfate 90 mcg/actuation 2 puff inhalation QID PRN 06/20/19 10/24/23 aerosol inhaler (Ventolin HFA) Shortness Of Breath alprazolam 2 mg tablet (Xanax) 2 mg PO TID PRN Anxiety 11/16/19 10/24/23 aripiprazole 5 mg tablet (Abilify) 5 mg PO DAILY 04/27/23 10/24/23 desvenlafaxine succinate 100 mg 100 mg PO QAM 05/16/23 10/24/23 tablet,extended release 24 hr (Pristiq) desipramine 100 mg tablet 100 mg PO DAILY 10/24/23 10/24/23 naproxen 500 mg tablet 500 mg PO BID 10/24/23 10/24/23 oxcarbazepine 300 mg tablet 300 mg PO DAILY 10/24/23 10/24/23 quetiapine 300 mg tablet 300 mg PO DAILY 10/24/23 10/24/23 Previous Rx's Medication Instructions Recorded ondansetron 4 mg disintegrating See Rx Instructions .Route 12/21/22 tablet .COMPLEX #7 tabs blood sugar diagnostic (Blood #100 ea 04/24/23 Glucose Test strips) azithromycin 250 mg tablet See Rx Instructions PO .COMPLEX #6 10/19/23 (Zithromax Z-Dean) tabs chlorpheniramine 4 5 ml PO Q6H PRN cold symptoms #160 10/19/23 mg-phenylephrine 10 mg-DM 15 mg/5 mL mL oral liquid (Ed A-Hist DM) fenofibrate 160 mg tablet 160 mg PO DAILY #30 tabs 11/01/23 omeprazole 40 mg capsule,delayed 40 mg PO DAILY #30 caps 11/01/23 release potassium chloride 20 mEq 20 meq PO DAILY #30 tabs 11/01/23 tablet,extended release(part/cryst) ferrous sulfate 325 mg (65 mg 325 mg PO QAM #30 tabs 12/05/23 iron) tablet isosorbide dinitrate 20 mg tablet 20 mg PO BID #60 tabs 12/05/23 levetiracetam 500 mg tablet 1,000 mg (2 x 500 mg) PO BID #120 12/05/23 tabs metoprolol tartrate 100 mg tablet 100 mg PO BID #60 tabs 12/05/23 apixaban 5 mg tablet (Eliquis) See Rx Instructions .Route 12/29/23 .COMPLEX #60 tabs atorvastatin 40 mg tablet See Rx Instructions .Route 12/29/23 .COMPLEX #15 tabs coenzyme Q10 100 mg capsule See Rx Instructions .Route 12/29/23 .COMPLEX #100 caps cyanocobalamin (vitamin B-12) See Rx Instructions .Route 12/29/23 1,000 mcg tablet .COMPLEX #30 tabs Allergies Allergy/AdvReac Type Severity Reaction Status Date / Time clonazepam [From Klonopin] Allergy Unknown Verified 10/24/23 11:19 Fish Containing Products Allergy anaphylaxis Verified 10/24/23 11:19 iodine Allergy ALGY-Anaphy Verified 10/24/23 11:19 laxis bupropion [From Wellbutrin] AdvReac Severe sucidal Verified 10/24/23 11:19 fluoxetine [From Prozac] AdvReac Severe sucidal Verified 10/24/23 11:19 topiramate [From Topamax] AdvReac Severe passing out Verified 10/24/23 11:19 venlafaxine [From Effexor] AdvReac Intermediate hives Verified 10/24/23 11:19 lamotrigine [From Lamictal] AdvReac Mild weight gain Verified 10/24/23 11:19 duloxetine [From Cymbalta] AdvReac Unknown Bumps Verified 10/24/23 11:19 inside mouth escitalopram [From Lexapro] AdvReac Unknown Made me Verified 10/24/23 11:19 psychotic sumatriptan AdvReac ADR-Depress Verified 10/24/23 11:19 ion [facility] PFS: Medical History Seizure disorder PTSD (post-traumatic stress disorder) Type 2 diabetes mellitus Anxiety Depression with suicidal ideation COPD (chronic obstructive pulmonary disease) Gastro-esophageal reflux disease without esophagitis Controlled with medication. Chronic constipation Controlled with medications followed by her primary care provider H/O deep venous thrombosis Reports having a DVT in 2019 and states her warfarin dose was increased after this. She follows up with Dr. Crespo -had second DVT in 11/2019 and was taken off warfarin and is now on eliquis Personal history of pulmonary embolism (2013) Depression Diagnosed at the age of 23 and has been on medication since then. She follows up with Dr. Benitez a psychiatrist and as well as therapy in [place]. She currently denies suicidal/homicidal ideation. Obstructive sleep apnea TIA (transient ischemic attack) Reports having had a TIA in 2019. Denies any neurological deficits. Followed by her primary care provider. Essential (primary) hypertension Diagnosed in 2019 and she follows up with Dr. Anderson and cardiology. Surgical History Status post conization of cervix Office LEEP procedure performed by Dr. Zelaya in 2005 for MARY-2 on Pap smear. 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 Status post knee surgery 2018-open knee surgery for torn ACL Status post left breast lumpectomy Patient reports having had 3 lumpectomies of her left breast in 1999, 2007 and 2009 for benign lesions. Family History Mother Hypertension Heart disease Grandmother Hypertension maternal and paternal Breast cancer maternal, diagnosed at age 43 Colon cancer maternal, diagnosed at age 63 Father Hypertension Grandfather Hypertension maternal and paternal Heart disease maternal Denies family history of Ovarian cancer Diabetes Uterine cancer Thyroid disease Stroke Social History Smoking and tobacco/nicotine status: unknown if used tobacco/nicotine Second hand smoke exposure: Yes Alcohol intake: former Substance/Drug Use: former Date of last use: 03/12/2023 Former substance use details: Marijuana Lives independently: Yes Housing: House Marital status: Single Number of children: 0 service: No Current occupational status: disabled Current gender identity: Female Special tereza needs: No Agree to transfusion: Yes Physical Exam 2 Const: COMMON NORMALS: no acute distress and patient oriented x3 Resp: COMMON NORMALS: normal respiratory effort and No retractions Cardio: COMMON NORMALS: regular rate and regular rhythm RATE: regular rate RHYTHM: regular rhythm GI: COMMON NORMALS: Normal to inspection, nondistended, normoactive bowel sounds present, Soft to palpation and non-tender PALPATION: Yes Soft to palpation Neuro: COMMON NORMALS: patient oriented x3, CN's II-XII intact bilaterally, moves all extremities, no focal motor deficits and no sensory deficits noted Course 2 Vital Signs: Vital signs: Vital Signs Temperature 97.3 F L 02/12/24 12:15 Pulse Rate 84 02/12/24 13:23 Respiratory Rate 18 02/12/24 12:19 Blood Pressure 156/98 02/12/24 13:23 Pulse Oximetry 99 02/12/24 13:23 Oxygen Delivery Me thod Room Air 02/12/24 13:23 MDM - Syncope Medical Decision Making Patient presents emerged part with complaint of generalized weakness and dizziness and shortness of breath this morning and a syncopal episode that may have been a syncopal seizure. Patient does have a history of seizures. She takes Keppra normal at the time of she took it this morning. She states that she is a diabetic but was taken off of her blood sugar medication, metformin, 2 months ago not placed on anything else and she does not know the reason why open she states that it was affecting her iron. She had blood sugar that was greater than 600 per EMS. Patient also states that she did not unable to urinate since yesterday morning despite having the urge to go. Patient did have 1 small seizure here. Given 500 of IV Keppra as well as 2 mg patient with significant hyperglycemia without any evidence of DKA. Patient has very poor social situation with living in a hotel and not having any diabetic medications easily accessible. Will admit patient to the hospital for fluids and insulin. Patient given 20 units of subcutaneous insulin here as well as 2 units of IV fluids. Discussed with Dr. Soto who is kind enough to admit patient. patient did end up having some urinary retention with 400 mL of urine after urinating since [place] catheter placed. Lab Data 02/12/24 13:05 02/12/24 13:05 Radiology Impressions Chest X-Ray 02/12/24 12:09 IMPRESSION: 1. No acute cardiopulmonary finding. Laboratory Results WBC 4.97 10^3/uL (3.29-11.43) 02/12/24 13:05 RBC 4.42 10^6/uL (3.85-5.65) 02/12/24 13:05 Hgb 13.30 g/dL (11.27-16.99) 02/12/24 13:05 Hct 39.4 % (36-47) 02/12/24 13:05 MCV 89.1 fl (85-98) 02/12/24 13:05 MCH 30.1 pg (27-33) 02/12/24 13:05 MCHC 33.8 g/dL (30-55) 02/12/24 13:05 RDW 11.9 % (12.1-15.1) L 02/12/24 13:05 Plt Count 230 10^3/cmm (157-399) 02/12/24 13:05 MPV 11.8 fL (7.4-10.4) H 02/12/24 13:05 Neut % (Auto) 63.2 % 02/12/24 13:05 Lymph % (Auto) 27.6 % 02/12/24 13:05 [place] % (Auto) 7.2 % 02/12/24 13:05 Eos % (Auto) 1.4 % 02/12/24 13:05 Baso % (Auto) 0.4 % 02/12/24 13:05 Neut # (Auto) 3.14 10^3/uL (1.8-7.7) 02/12/24 13:05 Lymph # (Auto) 1.4 10^3/uL (0.8-4.8) 02/12/24 13:05 [place] # (Auto) 0.4 10^3/uL (0.2-0.9) 02/12/24 13:05 Eos # (Auto) 0.1 10^3/uL (0.0-0.8) 02/12/24 13:05 Baso # (Auto) 0.0 10^3/uL (0.0-0.1) 02/12/24 13:05 Nucleated RBC % (auto) 0 % 02/12/24 13:05 Nucleated RBCs # 0.0 /100WBC 02/12/24 13:05 Specimen Type Venous 02/12/24 12:57 Sample Site Not Reportable 02/12/24 12:57 Jean Pierre Test N/a 02/12/24 12:57 VBG pH 7.35 (7.32-7.42) 02/12/24 12:57 VBG pCO2 50.8 mmHg (41-51) 02/12/24 12:57 VBG pO2 24.4 mmHg (25-40) L 02/12/24 12:57 VBG HCO3 28.0 mmol/L (24-28) 02/12/24 12:57 VBG Base Excess 1.4 mmol/L (-3.0-3.0) 02/12/24 12:57 VBG Hematocrit 44.4 % (37-47) 02/12/24 12:57 O2 Delivery Device Room air 02/12/24 12:57 Billet Header ID Cak 02/12/24 12:57 Sodium 132 mmol/L (136-145) L 02/12/24 13:05 Potassium 4.4 mmol/L (3.5-5.1) 02/12/24 13:05 Chloride 94 mmol/L (98-107) L 02/12/24 13:05 Carbon Dioxide 24 mmol/L (22-29) 02/12/24 13:05 Anion Gap 18.4 (5-19) 02/12/24 13:05 BUN 10 mg/dL (6-20) 02/12/24 13:05 Creatinine 1.2 mg/dL (0.5-0.9) H 02/12/24 13:05 GFR Calculation 48.4 mL/min (90-130) L 02/12/24 13:05 Glucose 608 mg/dL (65-115) H* 02/12/24 13:05 POC Glucose > 600 mg/dL (70-110) H* 02/12/24 12:11 Calculated Osmolality 301 mOsm/kg (285-295) H 02/12/24 13:05 Calcium 8.9 mg/dL (8.5-10.5) 02/12/24 13:05 Total Bilirubin 0.3 mg/dL (0.15-1.2) 02/12/24 13:05 AST 16 U/L (0-32) 02/12/24 13:05 ALT 18 U/L (0-33) 02/12/24 13:05 Alkaline Phosphatase 81 U/L (35-105) 02/12/24 13:05 Total Protein 7.0 g/dL (6.6-8.7) 02/12/24 13:05 Albumin 4.0 g/dL (3.5-5.2) 02/12/24 13:05 Globulin 3.0 g/dL (1.3-4.6) 02/12/24 13:05 Serum Ketones Negative (Negative) 02/12/24 13:05 All radiology interpretation(s) finalized by discharge Discharge Plan Discharge Patient Disposition: Placed in Observation Clinical Impression: Acute hyperglycemia, Breakthrough seizure, Acute urinary retention Coding Level of Care Code ED Lockstitch Sleeve Maker for Marci Helms
[2024-02-12 12:14] LABS: Glucose Point of Care > 600 mg/dL (70-110)
[2024-02-12] MEDS: LORazepam 2 mg/mL INJ 1 mL IVP ×2 (12:36→23:33)
[2024-02-12] MEDS: levETIRAcetam 500 MG/100 ML PREMIX 400 MG IV ×2 (12:37→16:13)
[2024-02-12] MEDS: sodium chloride 0.9% 1,000 ML 999 ML IV ×2 (12:38→13:40)
--- NOTE | 2024-02-12 13:06 | PC.NURSE ---
URINARY CATHETER DELAYED DUE TO OUT OF STOCK. WAITING ON STORE ROOM TO BRING KITS.
[2024-02-12 13:10] LABS: Base Excess VBG 1.4 mmol/L (-3.0-3.0); Blood Gas Operator Identificat CAK; Blood Gas Sample Type Venous; Oxygen Device ROOM AIR; PCO2 VBG 50.8 mmHg (41-51); PO2 VBG 24.4 mmHg (25-40); Venous Blood Gas Hematocrit 44.4 % (37-47); pH VBG 7.35 (7.32-7.42)
[2024-02-12 13:12] LABS: Basophils % 0.4 %; Eosinophils # 0.1 10^3/uL (0.0-0.8); Eosinophils % 1.4 %; Hematocrit 39.4 % (36-47); Lymphocytes # 1.4 10^3/uL (0.8-4.8); Lymphocytes % 27.6 %; Mean Corpuscular HGB Conc 33.8 g/dL (30-55); Mean Corpuscular Hemoglobin 30.1 pg (27-33); Mean Corpuscular Volume 89.1 fl (85-98); Mean Platelet Volume 11.8 fL (7.4-10.4); Monocytes # 0.4 10^3/uL (0.2-0.9); Monocytes % 7.2 %; Neutrophils # 3.14 10^3/uL (1.8-7.7); Neutrophils % 63.2 %; Nucleated Red Blood Cells % 0 %; Platelet Count 230 10^3/cmm (157-399); Red Blood Count 4.42 10^6/uL (3.85-5.65); Red Cell Distribution Width 11.9 % (12.1-15.1); White Blood Count 4.97 10^3/uL (3.29-11.43)
[2024-02-12 13:25] LABS: Ketone (Acetest) Serum Negative (Negative)
[2024-02-12 13:29] LABS: Alanine Aminotransferase 18 U/L (0-33); Alkaline Phosphatase 81 U/L (35-105); Anion Gap 18.4 (5-19); Aspartate Amino Transferase 16 U/L (0-32); Blood Urea Nitrogen 10 mg/dL (6-20); Calcium 8.9 mg/dL (8.5-10.5); Carbon Dioxide 24 mmol/L (22-29); Chloride 94 mmol/L (98-107); Creatinine Clr Calc Pharmacy 75.5528; Glomerular Filtration Rate 48.4 mL/min (90-130); Osmolality Calculated 301 mOsm/kg (285-295); Potassium 4.4 mmol/L (3.5-5.1); Sodium 132 mmol/L (136-145); Total Bilirubin 0.3 mg/dL (0.15-1.2)
[2024-02-12 13:31] LABS: Glucose 608 mg/dL (65-115)
[2024-02-12] MEDS: insulin lispro 100 unit/1 mL 20 UNIT SUBCUT (14:13)
--- NOTE | 2024-02-12 14:25 | PC.PHAR ---
Pt has her medications pill packed for am and pm medications. Verified current med list with her and checked pill cards to verify morning meds were taken.
[2024-02-12 14:48] LABS: Lactic Sepsis W/Reflex 3.2 mmol/L (0.5-2.2)
[2024-02-12 15:00] LABS: Procalcitonin 0.04 ng/mL (0-0.5)
--- NOTE | 2024-02-12 15:04 | P.HP_ITS ---
Providers/Chief Complaint 2 Primary Care Provider: Pham Jackman MD Chief Complaint: sob, syncope History of Present Illness Heladio Branch is a 48 year old female with past medical history of multiple episodes of thromboembolism on Eliquis, seizure disorder on Keppra with history of breakthrough seizures, type 2 diabetes mellitus with last A1c of 5 when her dose of metformin and glipizide was discontinued back in May 2023, PTSD, major depressive disorder when she was admitted for accidental overdose of Xanax, glimepiride and metformin who is currently living in a motel was found today in her room by the cleaning lady in unresponsive state. She has brought into the ER today with concerns for possible seizure. Patient did have 1 witnessed seizure while being in the ER. As per patient when seen in the ER she is awake and alert she has been having difficulty in breathing both at exertion and on rest for last few weeks. She usually takes albuterol nebulization which sometimes helps her. Her last seizure was few weeks ago. She reports monthly breakthrough seizure at baseline. She reports taking her medications regularly for now. In the ER she was given IV Keppra 1000 mg along with 2 L of IV fluids. Blood work showed hyperglycemia with blood sugar of more than 600. Hospitalist service was consulted for hyperglycemia. Review of Systems 2 General: Reports: 10 or more systems reviewed and unremarkable except in HPI and below Const: Denies: fever(s), chills, body aches, change in appetite, change in weight, malaise, night sweats, diaphoresis, change in sleep pattern, daytime sleepiness or snoring Eyes: Denies: change in vision, blurry vision, photophobia, eye discomfort or eye discharge ENMT: Denies: throat pain, enlarged tonsils, hoarseness, mouth pain, oral sores, dry mouth, tinnitus, nasal congestion or post nasal drip Card: Denies: chest pain, palpitations, irregular heart rhythm, edema, swelling of feet/ankles, lightheadedness, syncope, pre-syncope, dyspnea on exertion, orthopnea, leg pain with exertion or acrocyanosis Resp: Denies: dyspnea, productive cough, non-productive cough, wheezing, stridor, pain on inspiration, change in phlegm color, hemoptysis or chest congestion GI: Denies: abdominal pain, nausea, vomiting, hematemesis, coffee ground emesis, dysphagia, heartburn, diarrhea, constipation, bloating, GI cramping, change in bowel habits, pain on defecation, hematochezia or melena : Denies: flank pain, dysuria, urinary frequency, urinary urgency, urinary hesitancy, nocturia or hematuria Musc: Denies: neck pain, back pain, extremity pain, joint pain, joint swelling, joint redness, joint stiffness or limited range of motion Neuro: Denies: headache(s), numbness in extremities, weakness in extremities, sensory changes, lack of coordination, difficulty walking, frequent falls, dizziness, vertigo, confusion, Slurred speech present, difficulty communicating thoughts or seizure-like activity Psych: Denies: anxiety, depression, mood swings, panic attacks, hopelessness or irritability Endo: Denies: polyuria, polydipsia, tired all the time, cold intolerance, excessive sweating, flushing or heat intolerance Ander/Lymph: Denies: easy bruising or easy bleeding All/Imm: Denies: tongue swelling, facial swelling or acute wheezing Medications/Allergies Home Medications Medication Instructions Recorded Confirmed Last Taken Type albuterol sulfate 90 mcg/actuation 2 puff inhalation QID PRN 06/20/19 02/12/24 03/16/20 History aerosol inhaler (Ventolin HFA) Shortness Of Breath alprazolam 2 mg tablet (Xanax) 2 mg PO TID PRN Anxiety 11/16/19 02/12/24 02/12/24 History blood sugar diagnostic (Blood #100 ea 04/24/23 02/12/24 Unknown Rx Glucose Test strips) aripiprazole 5 mg tablet (Abilify) 5 mg PO DAILY 04/27/23 02/12/24 02/12/24 History desvenlafaxine succinate 100 mg 100 mg PO QAM 05/16/23 02/12/24 02/12/24 History tablet,extended release 24 hr (Pristiq) desipramine 100 mg tablet 100 mg PO DAILY 10/24/23 02/12/24 02/12/24 History naproxen 500 mg tablet 500 mg PO BID 10/24/23 02/12/24 02/12/24 History oxcarbazepine 300 mg tablet 300 mg PO DAILY 10/24/23 02/12/24 02/12/24 History quetiapine 300 mg tablet 300 mg PO QPM 10/24/23 02/12/24 02/11/24 History fenofibrate 160 mg tablet 160 mg PO DAILY #30 tabs 11/01/23 02/12/24 02/12/24 Rx omeprazole 40 mg capsule,delayed 40 mg PO DAILY #30 caps 11/01/23 02/12/24 02/12/24 Rx release potassium chloride 20 mEq 20 meq PO DAILY #30 tabs 11/01/23 02/12/24 02/12/24 Rx tablet,extended release(part/cryst) ferrous sulfate 325 mg (65 mg 325 mg PO QAM #30 tabs 12/05/23 02/12/24 02/12/24 Rx iron) tablet isosorbide dinitrate 20 mg tablet 20 mg PO BID #60 tabs 12/05/23 02/12/24 02/12/24 Rx levetiracetam 500 mg tablet 1,000 mg (2 x 500 mg) PO BID #120 12/05/23 02/12/24 02/12/24 Rx tabs metoprolol tartrate 100 mg tablet 100 mg PO BID #60 tabs 12/05/23 02/12/24 02/12/24 Rx apixaban 5 mg tablet (Eliquis) 5 mg PO BID 02/12/24 02/12/24 02/12/24 History atorvastatin 40 mg tablet 20 mg PO DAILY 02/12/24 02/12/24 02/12/24 History cyanocobalamin (vitamin B-12) 1,000 mcg PO DAILY 02/12/24 02/12/24 02/12/24 History 1,000 mcg tablet ondansetron 4 mg disintegrating 4 mg PO Q8H PRN Nausea 02/12/24 02/12/24 Unknown History tablet Allergies Allergy/AdvReac Type Severity Reaction Status Date / Time clonazepam [From Klonopin] Allergy Unknown Verified 10/24/23 11:19 Fish Containing Products Allergy anaphylaxis Verified 10/24/23 11:19 iodine Allergy ALGY-Anaphy Verified 10/24/23 11:19 laxis bupropion [From Wellbutrin] AdvReac Severe sucidal Verified 10/24/23 11:19 fluoxetine [From Prozac] AdvReac Severe sucidal Verified 10/24/23 11:19 topiramate [From Topamax] AdvReac Severe passing out Verified 10/24/23 11:19 venlafaxine [From Effexor] AdvReac Intermediate hives Verified 10/24/23 11:19 lamotrigine [From Lamictal] AdvReac Mild weight gain Verified 10/24/23 11:19 duloxetine [From Cymbalta] AdvReac Unknown Bumps Verified 10/24/23 11:19 inside mouth escitalopram [From Lexapro] AdvReac Unknown Made me Verified 10/24/23 11:19 psychotic sumatriptan AdvReac ADR-Depress Verified 10/24/23 11:19 ion PFSH Acute 2 PFSH: Medical History (Updated 02/12/24 @ 16:37 by Kris Walters MD) Seizure disorder PTSD (post-traumatic stress disorder) Type 2 diabetes mellitus Anxiety Depression with suicidal ideation COPD (chronic obstructive pulmonary disease) Gastro-esophageal reflux disease without esophagitis Controlled with medication. Chronic constipation Controlled with medications followed by her primary care provider H/O deep venous thrombosis Reports having a DVT in 2019 and states her warfarin dose was increased after this. She follows up with Dr. Crespo -had second DVT in 11/2019 and was taken off warfarin and is now on eliquis Personal history of pulmonary embolism (2013) Depression Diagnosed at the age of 23 and has been on medication since then. She follows up with Dr. Benitez a psychiatrist and as well as therapy in [place]. She currently denies suicidal/homicidal ideation. Obstructive sleep apnea TIA (transient ischemic attack) Reports having had a TIA in 2019. Denies any neurological deficits. Followed by her primary care provider. Essential (primary) hypertension Diagnosed in 2019 and she follows up with Dr. Anderson and cardiology. Surgical History Status post conization of cervix Office LEEP procedure performed by Dr. Zelaya in 2006 for MARY-2 on Pap smear. 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 Status post knee surgery 2018-open knee surgery for torn ACL Status post left breast lumpectomy Patient reports having had 3 lumpectomies of her left breast in 1999, 2007 and 2009 for benign lesions. Family History Mother Hypertension Heart disease Grandmother Hypertension maternal and paternal Breast cancer maternal, diagnosed at age 43 Colon cancer maternal, diagnosed at age 63 Father Hypertension Grandfather Hypertension maternal and paternal Heart disease maternal Denies family history of Ovarian cancer Diabetes Uterine cancer Thyroid disease Stroke Social History Smoking and tobacco/nicotine status: unknown if used tobacco/nicotine Second hand smoke exposure: Yes Alcohol intake: former Substance/Drug Use: former Date of last use: 03/12/2023 Former substance use details: Marijuana Lives independently: Yes Housing: House Marital status: Single Number of children: 0 service: No Current occupational status: disabled Current gender identity: Female Special tereza needs: No Agree to transfusion: Yes Vitals/I&O/Wt Last Vital Signs Temp 97.3 F L 02/12/24 12:15 Pulse 84 02/12/24 13:23 Resp 18 02/12/24 12:19 BP 156/98 02/12/24 13:23 Pulse Ox 99 02/12/24 13:23 O2 Del Method Room Air 02/12/24 13:23 02/12/24 02/12/24 02/12/24 06:59 14:59 22:59 Intake Total 1100 / 1100 Balance 1100 / 1100 Weight last 48 hrs Weight 122.198 kg Physical Exam 2 Narrative: General: No acute distress, AO x3, morbidly obese HEENT: PERRLA, pupils bilaterally equal and reactive Chest: Bilateral bronchial breath sounds all over lung gomez with occasional rhonchi CVS: S1-S2 regular, no murmurs, no tachycardia, no gallops, no rubs Abdomen: Soft, nontender, no organomegaly, bowel sounds present Neuro: No focal deficits, no facial deformity, AO x3, power 5/5 in all limbs Data 02/12/24 13:05 02/12/24 13:05 A&P Assessment and plan (1) Breakthrough seizure: Follows up with Dr. Abreu from urology. Is supposed to be on Keppra 1000 mg twice daily along with oxcrbazepine. Reports monthly breakthrough seizures. Breakthrough seizures could be in setting of hyperglycemia for now. Check Keppra levels. Continue with home dose of Keppra for now. Depending on the Keppra levels. Plan to consult neurology. (2) Generalized seizure: Seizure and aspiration precautions. (3) Type 2 diabetes mellitus: Last A1c of 5 in May 2023. Admitted at that time for overdose with glimepiride and metformin. Antidiabetic medications were discontinued on that admission. Has not checked her blood sugar since then. Check A1c. Sliding scale before meals and at bedtime at low-dose protocol. No concerns for DKA. IV fluids and normal saline at 100 cc/h. Depending on the A1c and insulin requirement next 24 hours we will plan for adding Lantus. Qualifiers: Diabetes mellitus complication status: without complication Diabetes mellitus watermelon inspector insulin use: without residential use Qualified Code(s): E11.9 - Type 2 diabetes mellitus without complications (4) Acute hyperglycemia: (5) Essential (primary) hypertension: Goal blood pressure less than 140/90 mmHg. Continue with home dose of metoprolol. Will restart home dose of isosorbide depending on blood pressures. (6) Shortness of breath: Patient gives history of COPD and pulmonary embolism in past. Questionable compliance with medications. Check D-Dimer, Echocardiogram, CTA. Start on Duoneb Q6h, Pulmicort BID. Start on Prednisone 40 mg daily. Depending on Echo will plan on workup on ACS. Last Stress test from 2019 negative. Appreciate last lipid panel. C/w home dose of statin, metoprolol. C/w Eliquis (7) Personal history of pulmonary embolism: (8) COPD (chronic obstructive pulmonary disease): Plan CKD: Baseline creatinine seems to be around 1.1-1.2. Currently at baseline. Continue to monitor daily. Fluid as above. Full code Carb consistent diet Protonix for PUD prophylaxis Eliquis to be sufficient for DVT prophylaxis Social discord: Patient currently lives in [facility]. Her DPOA will be her friend Tamra who is at bedside. As per the friend and patient very soon she will be moving to a house on which people are working currently. She has paid up for the house for over a year. Attestations 2 Medical Necessity Statement*: Admission more than 2 midnights management of hypoglycemia, breakthrough seizure in a patient with history of seizure disorder, further workup of shortness of breath Diagnoses Breakthrough seizure G40.919 Generalized seizure R56.9 Type 2 diabetes mellitus without complication, without long-term current use of insulin E11.9 Diabetes mellitus complication status: without complication Diabetes mellitus residential insulin use: without watermelon inspector use Acute hyperglycemia R73.9 Essential (primary) hypertension I10 Shortness of breath R06.02 Personal history of pulmonary embolism Z86.711 COPD (chronic obstructive pulmonary disease) J44.9
--- NOTE | 2024-02-12 15:25 | CTR_ITS ---
PROCEDURE INFORMATION: Exam: CTA Chest With Contrast Exam date and time: 02/12/2024 4:52 PM Age: 48 years old Clinical indication: Shortness of breath; Additional info: SOB, h/o pe TECHNIQUE: Imaging protocol: Computed tomographic angiography of the chest with contrast. Exam focused on the arteries. 3D rendering (Not supervised by radiologist): MIP and/or 3D reconstructed images were created by the technologist. Radiation optimization: All CT scans at this facility use at least one of these dose optimization techniques: automated exposure control; mA and/or kV adjustment per patient size (includes targeted exams where dose is matched to clinical indication); or iterative reconstruction. Contrast material: OMNI 350; Contrast volume: 100 ml; Contrast route: INTRAVENOUS (IV); COMPARISON: CT angio chest PE protcl [id number] 03/03/2020 3:28 PM RADIATION DOSE METRICS: Total DLP (mGy-cm): 539 FINDINGS: Pulmonary arteries: No filling defects in the pulmonary arteries to suggest pulmonary embolism. Aorta: No evidence for aortic aneurysm or aortic dissection. Trachea: Tracheobronchial structures are patent. Lungs: No pulmonary parenchymal nodules or masses. Pleural spaces: Interval development of a small right pleural effusion. No pneumothorax. Heart: Interval development of a small pericardial effusion. The heart is normal in size. Esophagus: The esophagus is unremarkable. Mediastinal space: No mediastinal hematoma. No pneumomediastinum. Lymph nodes: No lymphadenopathy. Liver: Diffuse, mildly decreased attenuation in the visualized liver. Findings are consistent with mild fatty infiltration. Gallbladder and biliary ducts: The visualized gallbladder is unremarkable. No dilatation of the visualized bile ducts. Pancreas: The visualized pancreas is unremarkable. No pancreatic ductal dilatation. Spleen: The spleen is unremarkable. Adrenal glands: The right and left adrenal glands are unremarkable. Kidneys: The visualized left kidney is unremarkable. Bones/joints: [id number] multilevel degenerative changes in the visualized spine. Soft tissues: No acute abnormality in the extrathoracic soft tissues. CT/CT angio chest PE protcl [id number] IMPRESSION: 1. Interval development of a small pericardial effusion. 2. Interval development of a small right pleural effusion with atelectasis in the right lung. 3. No evidence for pulmonary embolism. 4. Mild fatty infiltration of the visualized liver. 5. Incidental/nonacute findings are listed in the report.
--- NOTE | 2024-02-12 15:25 | USCV_ITS ---
Heladio Branch Age: 48 Gender: F : 1975 Exam Date: 02/12/2024 18:29 Ordering Phys: Kris Walters MD Technologist: VINCE [place] [facility] [place] BP: 120 / 68 HR: 87 Rhythm: Sinus Technical Quality: technically difficult because of body habitus MEASUREMENTS (Male / Female) Normal Values 2D ECHO LV Diastolic Diameter PLAX 3.0 cm 4.2 - 5.9 / 3.9 - 5.3 cm IVS Diastolic Thickness 1.5 cm 0.6 - 1.0 / 0.6 - 0.9 cm IVS Systolic Thickness 1.8 cm LVPW Diastolic Thickness 1.6 cm 0.6 - 1.0 / 0.6 - 0.9 cm LVPW Systolic Thickness 1.8 cm LVOT Diameter 1.9 cm LV Ejection Fraction 2D Teich 51.7 % LV Ejection Fraction MOD 4C 67.9 % LV Ejection Fraction MOD 2C 64.3 % LV Ejection Fraction 2C AL 65.1 % LA Diameter 3.4 cm Aorta at Sinotubular Diameter 2.7 cm IVC Diameter 2.5 cm M-MODE LA Ao Ratio MM 1.1 AV Cusp Separation MM 2.5 cm DOPPLER AV Peak Velocity 128.7 cm/s LVOT Peak Velocity 102.0 cm/s AV Area Cont Eq vti 1.9 cm squared AV Area Cont Eq pk 2.2 cm squared MV Peak Velocity 108.0 cm/s MV Area PHT 4.6 cm squared Mitral E to A Ratio 1.6 TR Peak Velocity 217.0 cm/s TR Peak Gradient 18.8 mmHg Right Atrial Pressure 3.0 mmHg Pulmonary Artery Systolic Pressu 21.8 mmHg FINDINGS Left Ventricle Left ventricle is normal in size with LV systolic function is normal with EF of 55 to 60%. No regional wall motion abnormalities are seen. Right Ventricle Normal in size and function Right Atrium Normal in size Left Atrium Normal in size Mitral Valve Structurally normal mitral valve. Trace mitral regurgitation. Aortic Valve Structurally normal aortic valve. No significant stenosis. Tricuspid Valve Mild tricuspid regurgitation. Pulmonary artery systolic pressure is normal. Pulmonic Valve Not well visualized Pericardium Normal Aorta Normal in size IVC Not well visualized. CONCLUSIONS LV systolic function is normal with EF of 55-60% Trace mitral regurgitation Mild tricuspid regurgitation Compared to prior echocardiogram from 2019, no significant changes are seen. Prasanth Nunn MD (Electronically Signed) Final Date: 13 February 2024 11:12 S
[2024-02-12 15:28] LABS: Charge for UA Resulting for Rev
[2024-02-12 15:30] LABS: Bilirubin Urine Negative (Negative); Blood Urine Negative (Negative); Glucose Urine UA 3+ (Normal); Ketones Urine Negative (Negative); Leukocyte Esterase Urine Negative (Negative); Nitrate Urine Negative (Negative); Protein Urine Negative (Negative); Urine Appearance Clear (CLEAR); Urine Color Yellow (Yellow); Urobilinogen Urine 0.2 mg/dL (Negative)
[2024-02-12 15:32] LABS: Bacteria Urine None Seen /hpf; RBC Urine 0-2 /hpf (0-2); Squamous Epithelial Cell Urine 0-5 /hpf (0-5); WBC Urine 0-5 /hpf (0-5)
[2024-02-12 15:32] LABS: Estmated Average Glucose 292; Hemoglobin A1C 11.8 % (4.0-6.0)
[2024-02-12 15:37] LABS: Specific Gravity, Urine 1.033 (1.005-1.030)
[2024-02-12 15:44] LABS: D Dimer 0.32 ug/mLFEU (0-0.59)
[2024-02-12] MEDS: diphenhydrAMINE 50 mg/mL SDV 1mL 25 MG IVP (16:08)
[2024-02-12] MEDS: famotidine 20 mg/2 mL INJ IVP (16:10)
[2024-02-12 16:11] LABS: Glucose Point of Care 375 mg/dL (70-110)
[2024-02-12 16:11] LABS: Reflex Lactate Order REFLEX LACTIC ORDERD
[2024-02-12] MEDS: methylPREDNISolone sod succ 125 mg/2 mL INJ IVP (16:11)
[2024-02-12 16:58] LABS: Amphetamines Screen Urine Negative (Negative); Barbiturates Screen Urine Negative (Negative); Benzodiazepines Screen Urine Positive (Negative); Cocaine Screen Urine Negative (Negative); Opiate Screen Urine Negative (Negative); PCP Screen Urine Negative (Negative); THC Screen Urine Negative (Negative)
[2024-02-12] MEDS: iohexol 350 mg/mL 500 mL Btl (per mL) IV (17:03)
[2024-02-12 17:33] LABS: Glucose Point of Care 273 mg/dL (70-110)
[2024-02-12] MEDS: naproxen 500 mg Tablet PO (19:19)
[2024-02-12] MEDS: metoprolol tartrate 50 mg Tablet 100 MG PO (19:19)
[2024-02-12] MEDS: apixaban 5 mg Tablet PO (19:20)
[2024-02-12] MEDS: quetiapine 300 mg Tablet PO (19:20)
[2024-02-12] MEDS: levETIRAcetam 500 mg Tablet 1000 MG PO (19:20)
[2024-02-12] MEDS: insulin lispro 100 unit/1 mL SUBCUT ×2 (19:20→22:03)
[2024-02-12] MEDS: isosorbide dinitrate 20 mg Tablet PO (19:20)
[2024-02-12] MEDS: sodium chloride 0.9% 1,000 ML 100 ML IV (19:20)
[2024-02-12] MEDS: ALPRAZolam 0.5 mg Tablet 2 MG PO (19:40)
[2024-02-12 22:03] LABS: Glucose Point of Care 419 mg/dL (70-110)
[2024-02-12 22:09] LABS: Glucose Point of Care 439 mg/dL (70-110)
[2024-02-12 23:38] LABS: Glucose Point of Care 377 mg/dL (70-110)
--- NOTE | 2024-02-12 23:49 | PM.CCNAC ---
Critical Care Event Note Responded to overhead rapid response call. Patient found to be seizing. She has a known history of seizure disorder with frequent breakthrough seizures. She is currently admitted for the same. 2 mg of IV Ativan administered. Seizure broke. She is awake and alert afterwards without significant postictal state. Vital signs largely unremarkable. Fingerstick glucose reveals hyperglycemia. She is oriented to self, year, and somewhat to location. (reports she is at the doctor's office rather than hospital). Patient reports she likely missed some of her home AED doses. Vitals, labs, medications, and chart reviewed. Plan: -Start Ativan 2 mg IV as needed for seizures -Transferred to ICU for close neuromonitoring The high probability of a clinically significant, sudden or life threatening deterioration of the patient's neuro system(s) required my full and direct attention, intervention and personal management. The critical care time is as shown. This time is in addition to time spent performing any reported procedures but includes the following: [x] Data and vital sign review and interpretation [x] Patient assessment, examination and intervention [x] Documentation [x] Medication orders and management Critical Care Time Code activated: No Critical Care Time (min): 30 Coding Level of Care Code Acute Code for Chg Fwd
[2024-02-13] VITALS (69 sets, daily range): BP systolic 98–155; BP diastolic 70–108; PULSE 65–106; RESP 13–35; TEMP 36.4–36.7; O2SAT 94–98
--- NOTE | 2024-02-13 00:13 | PC.NURSE ---
charge nurse entered pt room due to IV pump alarming, charge nurse reported that pt is having seizure, pt turned to right side, no secretion noted, rapid response called, Ativan given, second IV line started, Dr. Mccauley assessed pt, agreed to place pt in ICU for better visualization. pt alert and oriented.
[2024-02-13] MEDS: acetaminophen 325 mg Tablet 650 MG PO (00:31)
[2024-02-13 02:05] LABS: Glucose Point of Care 319 mg/dL (70-110)
--- NOTE | 2024-02-13 02:05 | PC.NURSE ---
Contacted Dr. Mccauley in reference to Pt BG of 319. Dr. Mccauley gave orders to give 12 units of Lantus once now, move patient to moderate sliding insulin scale. Also discussed Pt complaint of urinary retention, advised bladder scan gave range of 119-272mL retained urine. Dr. Mccauley ordered continue to monitor and bladder scan PRN.
[2024-02-13] MEDS: insulin glargine 100 units/1 mL 12 UNIT SUBCUT (03:06)
[2024-02-13] MEDS: bisacodyl 5 mg Tablet 10 MG PO (03:35)
[2024-02-13 04:11] LABS: Basophils % 0.1 %; Eosinophils % 0.1 %; Hematocrit 39.7 % (36-47); Lymphocytes # 1.2 10^3/uL (0.8-4.8); Lymphocytes % 11.6 %; Mean Corpuscular HGB Conc 33.2 g/dL (30-55); Mean Corpuscular Hemoglobin 29.5 pg (27-33); Mean Corpuscular Volume 88.8 fl (85-98); Monocytes # 0.3 10^3/uL (0.2-0.9); Monocytes % 2.9 %; Neutrophils # 8.46 10^3/uL (1.8-7.7); Neutrophils % 85.1 %; Nucleated Red Blood Cells % 0 %; Platelet Count 252 10^3/cmm (157-399); Red Blood Count 4.47 10^6/uL (3.85-5.65); Red Cell Distribution Width 11.9 % (12.1-15.1); White Blood Count 9.94 10^3/uL (3.29-11.43)
[2024-02-13 04:37] LABS: Alanine Aminotransferase 18 U/L (0-33); Albumin Level 3.8 g/dL (3.5-5.2); Alkaline Phosphatase 75 U/L (35-105); Aspartate Amino Transferase 15 U/L (0-32); Chloride 99 mmol/L (98-107); Glucose 348 mg/dL (65-115); Potassium 4.1 mmol/L (3.5-5.1); Sodium 133 mmol/L (136-145)
[2024-02-13 04:56] LABS: Anion Gap 19.1 (5-19); Blood Urea Nitrogen 12 mg/dL (6-20); Carbon Dioxide 19 mmol/L (22-29); Creatinine Clr Calc Pharmacy 95.6803; Globulin 2.7 g/dL (1.3-4.6); Glomerular Filtration Rate 59.7 mL/min (90-130); Magnesium 1.6 mg/dL (1.7-2.3); Osmolality Calculated 290 mOsm/kg (285-295); Phosphorus 2.8 mg/dL (2.5-4.5); Total Bilirubin 0.3 mg/dL (0.15-1.2); Total Protein 6.5 g/dL (6.6-8.7)
[2024-02-13] MEDS: desvenlafaxine 50 mg Tablet 100 MG PO (05:50)
[2024-02-13] MEDS: ferrous sulfate EC 325 mg Tablet PO (05:50)
[2024-02-13] MEDS: sodium chloride 0.9% 1,000 ML 100 ML IV ×2 (05:53→16:39)
[2024-02-13 07:08] LABS: Glucose Point of Care 321 mg/dL (70-110)
[2024-02-13] MEDS: levETIRAcetam 500 mg Tablet 1000 MG PO ×2 (08:36→18:25)
[2024-02-13] MEDS: fenofibrate 145 mg Tablet PO (08:36)
[2024-02-13] MEDS: ARIPiprazole 10 mg Tablet 5 MG PO (08:36)
[2024-02-13] MEDS: atorvastatin 40 mg Tablet 20 MG PO (08:36)
[2024-02-13] MEDS: metoprolol tartrate 50 mg Tablet 100 MG PO ×2 (08:37→18:24)
[2024-02-13] MEDS: OXcarbazepine 300 mg Tablet PO (08:37)
[2024-02-13] MEDS: ALPRAZolam 0.5 mg Tablet 2 MG PO ×3 (08:37→21:01)
[2024-02-13] MEDS: isosorbide dinitrate 20 mg Tablet PO ×2 (08:38→18:25)
[2024-02-13] MEDS: insulin lispro 100 unit/1 mL SUBCUT ×4 (08:38→20:56)
[2024-02-13] MEDS: apixaban 5 mg Tablet PO ×2 (08:38→18:25)
[2024-02-13] MEDS: pantoprazole DR 40 mg Tablet PO (08:38)
[2024-02-13] MEDS: cyanocobalamin 1,000 mcg Tablet 1000 MCG PO (08:38)
[2024-02-13] MEDS: naproxen 500 mg Tablet PO (08:39)
[2024-02-13] MEDS: potassium chloride ER 20 mEq Tablet PO (08:39)
[2024-02-13] MEDS: insulin glargine 100 units/1 mL 20 UNIT SUBCUT (09:57)
[2024-02-13 11:29] LABS: Glucose Point of Care 396 mg/dL (70-110)
--- NOTE | 2024-02-13 12:27 | P.PN_ITS ---
Subjective 2 Subjective: Appreciate overnight events. Today morning on examination patient lying comfortably in bed. States thinks he is feeling a lot better. Remains on room air. Denies any nausea, vomiting. Vitals/I&O/Wt Last Vital Signs Temp 97.6 F 02/13/24 08:00 Pulse 106 H 02/13/24 12:00 Resp 25 H 02/13/24 12:00 BP 122/80 02/13/24 12:00 Pulse Ox 96 02/13/24 12:00 O2 Del Method Room Air 02/13/24 12:00 02/12/24 02/13/24 02/13/24 22:59 06:59 14:59 Intake Total 1100 / 2200 1360 / 3560 300 / 300 Output Total 200 / 200 375 / 375 Balance 1100 / 2200 1160 / 3360 -75 / -75 Weight last 48 hrs Weight 135 kg Weight 133.593 kg Weight 133.5 kg Weight 135.942 kg Weight 122.198 kg Physical Exam 2 Narrative: General: No acute distress, AO x3, morbidly obese HEENT: PERRLA, pupils bilaterally equal and reactive Chest: Bilateral bronchial breath sounds all over lung gomez with occasional rhonchi CVS: S1-S2 regular, no murmurs, no tachycardia, no gallops, no rubs Abdomen: Soft, nontender, no organomegaly, bowel sounds present Neuro: No focal deficits, no facial deformity, AO x3, power 5/5 in all limbs Data 02/13/24 03:14 02/13/24 03:14 A&P Assessment and plan (1) Breakthrough seizure: Follows up with Dr. Abreu from urology. Is supposed to be on Keppra 1000 mg twice daily along with oxcrbazepine. Reports monthly breakthrough seizures. Patient again had an episode of possible seizure overnight. Reported not to have postictal state. Concerns for pseudoseizures. Keppra levels normal. Will consult neurology for further recommendations. For now continue with frequent neurochecks. Seizure precautions. Continue with home dose of Keppra 1 g twice daily, Trileptal 300 mg oral daily. (2) Generalized seizure: Seizure and aspiration precautions. (3) Type 2 diabetes mellitus: Last A1c of 5 in May 2023. Admitted at that time for overdose with glimepiride and metformin. Antidiabetic medications were discontinued on that admission. Has not checked her blood sugar since then. No A1c since then. A1c found to be more than 11 on current admission. Continue with normal saline at 100 cc/h. Required up to 50 units of insulin since admission yesterday afternoon. Blood sugar still elevated. Start on Lantus 20 units every morning. Continue with sliding scale at moderate dose protocol ACHS. Will uptitrate dose of Lantus depending on insulin requirement in next 24 hours. Patient will most likely need to be discharged on insulins. Qualifiers: Diabetes mellitus complication status: without complication Diabetes mellitus president and chief commercial officer insulin use: without retirement use Qualified Code(s): E11.9 - Type 2 diabetes mellitus without complications (4) Acute hyperglycemia: (5) Essential (primary) hypertension: Goal blood pressure less than 140/90 mmHg. Continue with home dose of metoprolo, isosorbide. Uptitrate dose for goal blood pressures. (6) Shortness of breath: Patient gives history of COPD and pulmonary embolism in past. Questionable compliance with medications. D-dimer negative. Appreciate echocardiogram and CTA. Most likely in setting of COPD. Cannot rule out baseline sleep apnea. Patient will benefit from sleep study as an outpatient. For now continue with ipratropium, Xopenex every 6 hours, Pulmicort twice daily. Will benefit from nebulizer versus inhaler as an outpatient. Heck D-Dimer, Echocardiogram, CTA. (7) Personal history of pulmonary embolism: (8) COPD (chronic obstructive pulmonary disease): Plan CKD: Baseline creatinine seems to be around 1.1-1.2. Currently at baseline. Continue to monitor daily. Fluid as above. Full code Carb consistent diet Protonix for PUD prophylaxis Eliquis to be sufficient for DVT prophylaxis Social discord: Patient currently lives in [facility]. She states her friend is not the DPOA anymore. T she has a counselor called as Tamra Castillo who she wants to be her DPOA. Discharge planning so far is the same. She will be moving to a house on which people are working currently. She has paid up for the house for over a year. Attestations 2 Medical Necessity Statement*: Requires further hospitalization for management of uncontrolled hyperglycemia while insulin doses are adjusted, frequent seizure-like activity with concerns for pseudoseizure versus breakthrough seizures Diagnoses Breakthrough seizure G40.919 Generalized seizure R56.9 Type 2 diabetes mellitus without complication, without long-term current use of insulin E11.9 Diabetes mellitus complication status: without complication Diabetes mellitus retirement insulin use: without retirement use Acute hyperglycemia R73.9 Essential (primary) hypertension I10 Shortness of breath R06.02 Personal history of pulmonary embolism Z86.711 COPD (chronic obstructive pulmonary disease) J44.9
[2024-02-13] MEDS: levalbuterol 0.63 mg/3 mL Neb INHALATION (13:44)
[2024-02-13] MEDS: ipratropium 0.5 mg/2.5 mL Neb INHALATION (13:44)
[2024-02-13 14:56] LABS: Anion Gap 16.7 (5-19); Blood Urea Nitrogen 13 mg/dL (6-20); Calcium 8.8 mg/dL (8.5-10.5); Carbon Dioxide 22 mmol/L (22-29); Chloride 102 mmol/L (98-107); Creatinine Clr Calc Pharmacy 87.5873; Glomerular Filtration Rate 53.5 mL/min (90-130); Glucose 297 mg/dL (65-115); Osmolality Calculated 295 mOsm/kg (285-295); Potassium 3.7 mmol/L (3.5-5.1); Sodium 137 mmol/L (136-145)
[2024-02-13 17:00] LABS: Glucose Point of Care 231 mg/dL (70-110)
[2024-02-13] MEDS: quetiapine 100 mg Tablet 300 MG PO (18:25)
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
[2024-02-13 20:54] LABS: Glucose Point of Care 326 mg/dL (70-110)
[2024-02-14] VITALS (27 sets, daily range): BP systolic 105–154; BP diastolic 65–97; PULSE 65–108; RESP 14–32; TEMP 36.3–37.1; O2SAT 92–98; BMI 52.4
[2024-02-14] MEDS: ipratropium 0.5 mg/2.5 mL Neb INHALATION ×3 (02:38→15:29)
[2024-02-14] MEDS: levalbuterol 0.63 mg/3 mL Neb INHALATION ×3 (02:38→15:29)
[2024-02-14] MEDS: sodium chloride 0.9% 1,000 ML 100 ML IV ×2 (02:50→12:09)
[2024-02-14 03:50] LABS: Basophils % 0.4 %; Eosinophils # 0.1 10^3/uL (0.0-0.8); Eosinophils % 1.2 %; Hematocrit 37.3 % (36-47); Lymphocytes # 2.2 10^3/uL (0.8-4.8); Lymphocytes % 42.8 %; Mean Corpuscular Hemoglobin 29.9 pg (27-33); Mean Corpuscular Volume 90.5 fl (85-98); Mean Platelet Volume 11.8 fL (7.4-10.4); Monocytes # 0.4 10^3/uL (0.2-0.9); Monocytes % 7.1 %; Neutrophils # 2.45 10^3/uL (1.8-7.7); Neutrophils % 48.3 %; Nucleated Red Blood Cells % 0 %; Platelet Count 209 10^3/cmm (157-399); Red Blood Count 4.12 10^6/uL (3.85-5.65); Red Cell Distribution Width 12.2 % (12.1-15.1); White Blood Count 5.07 10^3/uL (3.29-11.43)
[2024-02-14 04:16] LABS: Alanine Aminotransferase 15 U/L (0-33); Albumin Level 3.3 g/dL (3.5-5.2); Alkaline Phosphatase 67 U/L (35-105); Anion Gap 12.5 (5-19); Aspartate Amino Transferase 12 U/L (0-32); Blood Urea Nitrogen 13 mg/dL (6-20); Calcium 8.1 mg/dL (8.5-10.5); Carbon Dioxide 24 mmol/L (22-29); Chloride 103 mmol/L (98-107); Creatinine Clr Calc Pharmacy 96.3461; Globulin 2.3 g/dL (1.3-4.6); Glomerular Filtration Rate 59.7 mL/min (90-130); Glucose 259 mg/dL (65-115); Osmolality Calculated 291 mOsm/kg (285-295); Potassium 3.5 mmol/L (3.5-5.1); Sodium 136 mmol/L (136-145); Total Bilirubin 0.2 mg/dL (0.15-1.2); Total Protein 5.6 g/dL (6.6-8.7)
[2024-02-14] MEDS: ferrous sulfate EC 325 mg Tablet PO (05:37)
[2024-02-14] MEDS: insulin glargine 100 units/1 mL 20 UNIT SUBCUT (05:39)
[2024-02-14 05:47] LABS: Glucose Point of Care 251 mg/dL (70-110)
[2024-02-14 07:20] LABS: Glucose Point of Care 244 mg/dL (70-110)
[2024-02-14] MEDS: insulin lispro 100 unit/1 mL SUBCUT ×4 (08:28→21:09)
[2024-02-14] MEDS: fenofibrate 145 mg Tablet PO (08:29)
[2024-02-14] MEDS: metoprolol tartrate 50 mg Tablet 100 MG PO ×2 (08:29→17:02)
[2024-02-14] MEDS: OXcarbazepine 300 mg Tablet PO (08:29)
[2024-02-14] MEDS: ALPRAZolam 0.5 mg Tablet 2 MG PO ×2 (08:29→17:01)
[2024-02-14] MEDS: cyanocobalamin 1,000 mcg Tablet 1000 MCG PO (08:29)
[2024-02-14] MEDS: pantoprazole DR 40 mg Tablet PO (08:30)
[2024-02-14] MEDS: levETIRAcetam 500 mg Tablet 1000 MG PO ×2 (08:30→17:02)
[2024-02-14] MEDS: apixaban 5 mg Tablet PO ×2 (08:30→17:02)
[2024-02-14] MEDS: isosorbide dinitrate 20 mg Tablet PO ×2 (08:30→17:02)
[2024-02-14] MEDS: atorvastatin 40 mg Tablet 20 MG PO (08:30)
[2024-02-14] MEDS: ARIPiprazole 10 mg Tablet 5 MG PO (08:31)
[2024-02-14] MEDS: budesonide 0.5 mg/2 mL Neb INHALATION (09:29)
--- NOTE | 2024-02-14 11:22 | P.PN_ITS ---
Subjective 2 Subjective: Seen this morning. Patient states she has poor vision and did not have her glasses last time and instead of taking metoprolol she took metformin and accidentally took too much medication she says she was accused of trying to kill herself with metformin and glipizide however she states that that was not the case. She does have a history of suicide ideation/attempt previous to the metformin episode however this time she says she was not trying to kill herself. She states now she gets a blister pack from the pharmacy so she is able to take her medications without any errors. She states she would like to go back on metformin at this time as her A1c is now 11. She previously used to be on Ozempic, Jardiance, metformin, glipizide and all of them were stopped. She says she checks her sugars at home and typically are between 1 40-200 range. She has never seen an coil builder before. Vitals/I&O/Wt Last Vital Signs Temp 97.4 F L 02/14/24 07:33 Pulse 84 02/14/24 10:46 Resp 20 H 02/14/24 10:46 BP 154/97 02/14/24 10:46 Pulse Ox 94 02/14/24 10:46 O2 Del Method Room Air 02/14/24 10:46 02/13/24 02/14/24 02/14/24 22:59 06:59 14:59 Intake Total 1760 / 2360 740 / 3100 360 / 360 Output Total 200 / 725 Balance 1560 / 1635 740 / 2375 360 / 360 Weight last 48 hrs Weight 138.5 kg Weight 135 kg Weight 133.593 kg Weight 133.5 kg Weight 135.942 kg Weight 122.198 kg Physical Exam 2 Narrative: General: No acute distress, AO x3, morbidly obese HEENT: PERRLA, pupils bilaterally equal and reactive Chest: Bilateral bronchial breath sounds all over lung gomez with occasional rhonchi CVS: S1-S2 regular, no murmurs, no tachycardia, no gallops, no rubs Abdomen: Soft, nontender, no organomegaly, bowel sounds present Neuro: No focal deficits, no facial deformity, AO x3, power 5/5 in all limbs Data 02/14/24 03:07 02/14/24 03:07 A&P Assessment and plan (1) Breakthrough seizure: Follows up with Dr. Abreu from urology. Is supposed to be on Keppra 1000 mg twice daily along with oxcrbazepine. Reports monthly breakthrough seizures. Patient again had an episode of possible seizure overnight. Reported not to have postictal state. Concerns for pseudoseizures. Keppra levels normal. Will consult neurology for further recommendations. For now continue with frequent neurochecks. Seizure precautions. Continue with home dose of Keppra 1 g twice daily, Trileptal 300 mg oral daily. (2) Generalized seizure: Seizure and aspiration precautions. (3) Type 2 diabetes mellitus: Last A1c of 5 in May 2023. Admitted at that time for overdose with glimepiride and metformin. Antidiabetic medications were discontinued on that admission. Has not checked her blood sugar since then. No A1c since then. A1c found to be more than 11 on current admission. Continue with normal saline at 100 cc/h. Required up to 50 units of insulin since admission yesterday afternoon. Blood sugar still elevated. Start on Lantus 20 units every morning. Continue with sliding scale at moderate dose protocol ACHS. Will uptitrate dose of Lantus depending on insulin requirement in next 24 hours. Patient will most likely need to be discharged on insulins. Qualifiers: Diabetes mellitus complication status: without complication Diabetes mellitus exterminator helper insulin use: without exterminator helper use Qualified Code(s): E11.9 - Type 2 diabetes mellitus without complications (4) Acute hyperglycemia: (5) Essential (primary) hypertension: Goal blood pressure less than 140/90 mmHg. Continue with home dose of metoprolo, isosorbide. Uptitrate dose for goal blood pressures. (6) Shortness of breath: Patient gives history of COPD and pulmonary embolism in past. Questionable compliance with medications. D-dimer negative. Appreciate echocardiogram and CTA. Most likely in setting of COPD. Cannot rule out baseline sleep apnea. Patient will benefit from sleep study as an outpatient. For now continue with ipratropium, Xopenex every 6 hours, Pulmicort twice daily. Will benefit from nebulizer versus inhaler as an outpatient. Heck D-Dimer, Echocardiogram, CTA. (7) Personal history of pulmonary embolism: (8) COPD (chronic obstructive pulmonary disease): Plan CKD: Baseline creatinine seems to be around 1.1-1.2. Currently at baseline. Continue to monitor daily. Fluid as above. Full code Carb consistent diet Protonix for PUD prophylaxis Eliquis to be sufficient for DVT prophylaxis Social discord: Patient currently lives in [facility]. She states her friend is not the DPOA anymore. T she has a counselor called as Tamra Castillo who she wants to be her DPOA. Discharge planning so far is the same. She will be moving to a house on which people are working currently. She has paid up for the house for over a year. 02/13 Will increase Lantus to 20 5 in the morning and 5 at night. Continue insulin sliding scale Add metformin 500 twice daily Patient recommended to follow-up with endocrinology at discharge Neurology consultation appreciated. Patient to continue current medications. Plan for discharge in a.m. May transfer to floor today. Attestations 2 Medical Necessity Statement*: Requires further hospitalization for management of uncontrolled hyperglycemia while insulin doses are adjusted, frequent seizure-like activity with concerns for pseudoseizure versus breakthrough seizures Diagnoses Breakthrough seizure G40.919 Generalized seizure R56.9 Type 2 diabetes mellitus without complication, without long-term current use of insulin E11.9 Diabetes mellitus complication status: without complication Diabetes mellitus long-term insulin use: without exterminator helper use Acute hyperglycemia R73.9 Essential (primary) hypertension I10 Shortness of breath R06.02 Personal history of pulmonary embolism Z86.711 COPD (chronic obstructive pulmonary disease) J44.9
[2024-02-14 11:36] LABS: Glucose Point of Care 277 mg/dL (70-110)
--- NOTE | 2024-02-14 13:20 | PC.SOCIAL ---
IMM Update pg 2 of IMM updated and reviewed w/ patient. Copy provided and copy dated, initialed and placed in chart.
--- NOTE | 2024-02-14 14:45 | PC.NURSE ---
Pt transferred to [facility] after breathing tx completed. All belongings with pt.
--- NOTE | 2024-02-14 15:27 | PC.NURSE ---
This nurse took report from JEANA Samuel in ICU at 2074.
--- NOTE | 2024-02-14 15:28 | PC.NURSE ---
Report given to Cruz Meza RN for bed 254-1. No further questions.
--- NOTE | 2024-02-14 15:53 | PC.NURSE ---
Pt transferred from ICU to Med Surg room 254-2 via wheelchair. This nurse assumed care of pt at 1551.
[2024-02-14 16:49] LABS: Glucose Point of Care 274 mg/dL (70-110)
[2024-02-14] MEDS: quetiapine 100 mg Tablet 300 MG PO (17:02)
[2024-02-14 20:53] LABS: Glucose Point of Care 259 mg/dL (70-110)
[2024-02-14] MEDS: insulin glargine 100 units/1 mL 5 UNIT SUBCUT (21:32)
[2024-02-15] VITALS: BP 117/75; PULSE 71; RESP 19; TEMP 36.6; O2SAT 95
[2024-02-15] MEDS: sodium chloride 0.9% 1,000 ML 100 ML IV (01:06)
[2024-02-15 04:00] VITALS: BP 120/79; PULSE 86; RESP 18; TEMP 36.4; O2SAT 94
[2024-02-15 05:20] VITALS: PULSE 74
[2024-02-15] MEDS: ferrous sulfate EC 325 mg Tablet PO (05:28)
[2024-02-15] MEDS: insulin glargine 100 units/1 mL 25 UNIT SUBCUT (05:28)
[2024-02-15 06:32] LABS: Glucose Point of Care 224 mg/dL (70-110)
[2024-02-15 07:45] VITALS: BP 115/78; PULSE 89; RESP 18; TEMP 36.4; O2SAT 95
[2024-02-15] MEDS: fenofibrate 145 mg Tablet PO (08:17)
[2024-02-15] MEDS: atorvastatin 40 mg Tablet 20 MG PO (08:17)
[2024-02-15] MEDS: insulin lispro 100 unit/1 mL SUBCUT (08:17)
[2024-02-15] MEDS: ARIPiprazole 10 mg Tablet 5 MG PO (08:18)
[2024-02-15] MEDS: cyanocobalamin 1,000 mcg Tablet 1000 MCG PO (08:18)
[2024-02-15] MEDS: levETIRAcetam 500 mg Tablet 1000 MG PO (08:18)
[2024-02-15] MEDS: metoprolol tartrate 50 mg Tablet 100 MG PO (08:18)
[2024-02-15] MEDS: OXcarbazepine 300 mg Tablet PO (08:18)
[2024-02-15] MEDS: isosorbide dinitrate 20 mg Tablet PO (08:18)
[2024-02-15] MEDS: pantoprazole DR 40 mg Tablet PO (08:18)
[2024-02-15] MEDS: apixaban 5 mg Tablet PO (08:18)
[2024-02-15] MEDS: ALPRAZolam 0.5 mg Tablet 2 MG PO (08:18)
[2024-02-15] MEDS: ipratropium 0.5 mg/2.5 mL Neb INHALATION (08:51)
[2024-02-15] MEDS: levalbuterol 0.63 mg/3 mL Neb INHALATION (08:51)
[2024-02-15] MEDS: budesonide 0.5 mg/2 mL Neb INHALATION (08:52)
[2024-02-15 08:53] VITALS: PULSE 91; RESP 18; O2SAT 94
[2024-02-15 09:01] VITALS: PULSE 87
--- NOTE | 2024-02-15 10:00 | PM.DCS ---
Discharge Providers Date of Admission: 02/12/24 16:48 Date of Discharge: February 15, 2024 Attending Provider at Admission: Kris Walters MD Attending Provider at Discharge: Blanka Lynch MD Primary Care Provider: Pham Jackman MD Diagnoses at Discharge Discharge Diagnosis (1) Breakthrough seizure: Status: Acute (2) Generalized seizure: Status: Acute (3) Type 2 diabetes mellitus: Status: Acute Qualifiers: Diabetes mellitus complication status: without complication Diabetes mellitus skilled nursing insulin use: without long distance operator use Qualified Code(s): E11.9 - Type 2 diabetes mellitus without complications (4) Acute hyperglycemia: Status: Acute (5) Essential (primary) hypertension: Status: Acute Permanent problem details: Diagnosed in 2019 and she follows up with Dr. Anderson and cardiology. (6) Shortness of breath: Status: Acute (7) Personal history of pulmonary embolism: Status: Acute (8) COPD (chronic obstructive pulmonary disease): Status: Acute Reason for Visit Reason for Visit: sob, syncope Hospital Course Hospital Course Patient presented to the hospital for possible seizure. She was seen by neurology and seizures were thought to be more of pseudoseizures or functional neurological disorder. Patient has been recommended to follow-up with Dr. Abreu to pursue further treatment. Her family members have been recommended to record a video on her phone when she is having a seizure to help with diagnosis. Please see neurology note. On sugar was found to be 600. A1c 10.0. She has been started on Lantus, sliding scale insulin. And Jardiance. She is to follow-up with endocrinology at discharge and primary care doctor. She has been given prescription for glucose monitor test strips and lancets as well. She has been taught how to use insulin pen and has been given diabetic education by nursing staff. Patient has been recommended not to drive. She will be discharged home at this time to follow-up with her primary care doctor and neurology as an outpatient. Copy of this summary will be sent to primary care doctor. Physical Exam Narrative: General: No acute distress, AO x3, morbidly obese HEENT: PERRLA, pupils bilaterally equal and reactive Chest: Bilateral bronchial breath sounds all over lung gomez with occasional rhonchi CVS: S1-S2 regular, no murmurs, no tachycardia, no gallops, no rubs Abdomen: Soft, nontender, no organomegaly, bowel sounds present Neuro: No focal deficits, no facial deformity, AO x3, power 5/5 in all limbs Discharge Data Studies Completed and Pending Completed Studies During Hospitalization Category Date Time Status CTA chest [CT angio chest PE protcl [id number]] Stat Cat Scan 02/12/24 15:25 Completed CXRP [XR chest 1V portable [id number]] Stat Exams 02/12/24 12:09 Completed CV. echo complete* [id number] Routine Ultrasound 02/12/24 15:25 Completed Radiology Impressions Chest X-Ray 02/12/24 12:09 IMPRESSION: 1. No acute cardiopulmonary finding. Chest CTA 02/12/24 15:25 IMPRESSION: 1. Interval development of a small pericardial effusion. 2. Interval development of a small right pleural effusion with atelectasis in the right lung. 3. No evidence for pulmonary embolism. 4. Mild fatty infiltration of the visualized liver. 5. Incidental/nonacute findings are listed in the report. Laboratory Results WBC 5.07 10^3/uL (3.29-11.43) 02/14/24 03:07 RBC 4.12 10^6/uL (3.85-5.65) 02/14/24 03:07 Hgb 12.30 g/dL (11.27-16.99) 02/14/24 03:07 Hct 37.3 % (36-47) 02/14/24 03:07 MCV 90.5 fl (85-98) 02/14/24 03:07 MCH 29.9 pg (27-33) 02/14/24 03:07 MCHC 33.0 g/dL (30-55) 02/14/24 03:07 RDW 12.2 % (12.1-15.1) 02/14/24 03:07 Plt Count 209 10^3/cmm (157-399) 02/14/24 03:07 MPV 11.8 fL (7.4-10.4) H 02/14/24 03:07 Neut % (Auto) 48.3 % 02/14/24 03:07 Lymph % (Auto) 42.8 % 02/14/24 03:07 [place] % (Auto) 7.1 % 02/14/24 03:07 Eos % (Auto) 1.2 % 02/14/24 03:07 Baso % (Auto) 0.4 % 02/14/24 03:07 Neut # (Auto) 2.45 10^3/uL (1.8-7.7) 02/14/24 03:07 Lymph # (Auto) 2.2 10^3/uL (0.8-4.8) 02/14/24 03:07 [place] # (Auto) 0.4 10^3/uL (0.2-0.9) 02/14/24 03:07 Eos # (Auto) 0.1 10^3/uL (0.0-0.8) 02/14/24 03:07 Baso # (Auto) 0.0 10^3/uL (0.0-0.1) 02/14/24 03:07 Nucleated RBC % (auto) 0 % 02/14/24 03:07 Nucleated RBCs # 0.0 /100WBC 02/14/24 03:07 D-Dimer 0.32 ug/mLFEU (0-0.59) 02/12/24 13:05 Specimen Type Venous 02/12/24 12:57 Sample Site Not Reportable 02/12/24 12:57 [place] Test N/a 02/12/24 12:57 VBG pH 7.35 (7.32-7.42) 02/12/24 12:57 VBG pCO2 50.8 mmHg (41-51) 02/12/24 12:57 VBG pO2 24.4 mmHg (25-40) L 02/12/24 12:57 VBG HCO3 28.0 mmol/L (24-28) 02/12/24 12:57 VBG Base Excess 1.4 mmol/L (-3.0-3.0) 02/12/24 12:57 VBG Hematocrit 44.4 % (37-47) 02/12/24 12:57 O2 Delivery Device Room air 02/12/24 12:57 Firer Retort ID Cak 02/12/24 12:57 Sodium 136 mmol/L (136-145) 02/14/24 03:07 Potassium 3.5 mmol/L (3.5-5.1) 02/14/24 03:07 Chloride 103 mmol/L (98-107) 02/14/24 03:07 Carbon Dioxide 24 mmol/L (22-29) 02/14/24 03:07 Anion Gap 12.5 (5-19) 02/14/24 03:07 BUN 13 mg/dL (6-20) 02/14/24 03:07 Creatinine 1.0 mg/dL (0.5-0.9) H 02/14/24 03:07 GFR Calculation 59.7 mL/min (90-130) L 02/14/24 03:07 Glucose 259 mg/dL (65-115) H 02/14/24 03:07 POC Glucose 224 mg/dL (70-110) H 02/15/24 06:22 Estimat Average Glucose 292 02/12/24 13:05 Hemoglobin A1c 11.8 % (4.0-6.0) H 02/12/24 13:05 Calculated Osmolality 291 mOsm/kg (285-295) 02/14/24 03:07 Lactic Acid 3.2 mmol/L (0.5-2.2) H 02/12/24 13:05 Lactic Acid (Sepsis) 2.0 mmol/L (0.5-2.2) 02/12/24 16:16 Calcium 8.1 mg/dL (8.5-10.5) L 02/14/24 03:07 Phosphorus 2.8 mg/dL (2.5-4.5) 02/13/24 03:14 Magnesium 1.6 mg/dL (1.7-2.3) L 02/13/24 03:14 Total Bilirubin 0.2 mg/dL (0.15-1.2) 02/14/24 03:07 AST 12 U/L (0-32) 02/14/24 03:07 ALT 15 U/L (0-33) 02/14/24 03:07 Alkaline Phosphatase 67 U/L (35-105) 02/14/24 03:07 Total Protein 5.6 g/dL (6.6-8.7) L 02/14/24 03:07 Albumin 3.3 g/dL (3.5-5.2) L 02/14/24 03:07 Globulin 2.3 g/dL (1.3-4.6) 02/14/24 03:07 Procalcitonin 0.04 ng/mL (0-0.5) 02/12/24 13:05 Urine Color Yellow (Yellow) 02/12/24 15:18 Urine Appearance Clear (CLEAR) 02/12/24 15:18 Urine pH 7.0 (5-7) 02/12/24 15:18 Ur Specific [place] 1.033 (1.005-1.030) H 02/12/24 15:18 Urine Protein Negative (Negative) 02/12/24 15:18 Urine Glucose (UA) 3+ (Normal) H 02/12/24 15:18 Urine Ketones Negative (Negative) 02/12/24 15:18 Urine Blood Negative (Negative) 02/12/24 15:18 Urine Nitrate Negative (Negative) 02/12/24 15:18 Urine Bilirubin Negative (Negative) 02/12/24 15:18 Urine Urobilinogen 0.2 mg/dL (Negative) 02/12/24 15:18 Ur Leukocyte Esterase Negative (Negative) 02/12/24 15:18 Urine RBC 0-2 /hpf (0-2) 02/12/24 15:18 Urine WBC 0-5 /hpf (0-5) 02/12/24 15:18 Ur Squamous Epith Cells 0-5 /hpf (0-5) 02/12/24 15:18 Amorphous Sediment Not Reportable 02/12/24 15:18 Urine Bacteria None seen /hpf (NONE) 02/12/24 15:18 Hyaline Casts 0.40 /lpf 02/12/24 15:18 Urine Opiates Screen Negative ng/mL (Negative) 02/12/24 15:18 Ur Barbiturates Screen Negative ng/mL (Negative) 02/12/24 15:18 Levetiracetam 29.0 mcg/mL (6.0-46.0) 02/12/24 13:05 Ur Phencyclidine Scrn Negative ng/mL (Negative) 02/12/24 15:18 Ur Amphetamines Screen Negative ng/mL (Negative) 02/12/24 15:18 U Benzodiazepines Scrn Positive ng/mL (Negative) H 02/12/24 15:18 Urine Cocaine Screen Negative ng/mL (Negative) 02/12/24 15:18 U Marijuana (THC) Screen Negative ng/mL (Negative) 02/12/24 15:18 Serum Ketones Negative (Negative) 02/12/24 13:05 Vitals Last Vital Signs Temp 97.6 F 02/15/24 07:45 Pulse 87 02/15/24 09:01 Resp 18 02/15/24 08:53 BP 115/78 02/15/24 07:45 Pulse Ox 94 02/15/24 08:53 O2 Del Method Room Air 02/15/24 08:53 Discharge Plan Discharge Patient Disposition: Home Condition: Stable Prescriptions: New Lantus U-100 Insulin 100 unit/mL Solution 25 unit SUBCUT QAM Qty: 6 0RF Lantus U-100 Insulin 100 unit/mL Solution 5 unit SUBCUT BEDTIME Qty: 3 0RF Humalog U-100 Insulin 100 unit/mL Solution 0 unit SUBCUT WM&BEDTIME Qty: 5 0RF (DME) lancet-gluc cjzof-lvngyt-lphxt Kit See Rx Instructions .Route Qty: 1 0RF Rx Instructions: As directed (DME) Blood Glucose Monitoring Kit See Rx Instructions .Route Qty: 1 0RF Rx Instructions: As directed (DME) Blood Glucose Test Strip See Rx Instructions .Route Qty: 50 0RF Rx Instructions: As directed Jardiance 10 mg tablet 10 mg PO DAILY Qty: 30 0RF Continued albuterol sulfate [Ventolin HFA] 90 mcg/actuation HFA aerosol inhaler 2 puff INHALATION QID PRN (Reason: Shortness Of Breath) desipramine 100 mg tablet 100 mg PO DAILY quetiapine 300 mg tablet 300 mg PO QPM oxcarbazepine 300 mg tablet 300 mg PO DAILY naproxen 500 mg tablet 500 mg PO BID aripiprazole [Abilify] 5 mg tablet 5 mg PO DAILY (DME) Blood Glucose Test Strip See Rx Instructions .Route Qty: 100 3RF Rx Instructions: As directed; pt to test 1 x day and prn hypoglycemia fenofibrate 160 mg tablet 160 mg PO DAILY Qty: 30 3RF potassium chloride 20 mEq tablet,ER particles/crystals 20 meq PO DAILY Qty: 30 3RF omeprazole 40 mg capsule,delayed release(DR/EC) 40 mg PO DAILY Qty: 30 3RF isosorbide dinitrate 20 mg tablet 20 mg PO BID Qty: 60 3RF levetiracetam 500 mg tablet 1,000 mg PO BID Qty: 120 2RF ferrous sulfate 325 mg (65 mg iron) tablet 325 mg PO QAM Qty: 30 3RF metoprolol tartrate 100 mg tablet 100 mg PO BID Qty: 60 3RF alprazolam [Xanax] 2 mg Tablet 2 mg PO TID PRN (Reason: Anxiety) atorvastatin 40 mg tablet 20 mg PO DAILY cyanocobalamin (vitamin B-12) 1,000 mcg tablet 1,000 mcg PO DAILY ondansetron 4 mg tablet,disintegrating 4 mg PO Q8H PRN (Reason: Nausea) Eliquis 5 mg tablet 5 mg PO BID desvenlafaxine succinate [Pristiq] 100 mg tablet extended release 24 hr 100 mg PO QAM Discharge Orders: Discharge Order (Routine); Ordered 02/15/24 Ordered By: Blanka Lynch Referrals: James Abreu MD [Physician] - 1 week (We have notified your physician's clinic of the need for a follow-up appointment to be scheduled. If you have not heard from them within the next 2 business days, please call them directly. ) Pham Jackman MD [Primary Care Provider] - 02/21/24 2:00 pm Discharge Diet: Cardiac and Diabetic Discharge Activity: Resume usual activity Patient Instructions: Diabetes and Diet, Insulin Glargine (By injection) (Lantus, Lantus SoloStar, Toujeo, Semglee), Insulin Lispro (By injection) (Humalog, Humalog Pen, Lispro-PFC,..., Empagliflozin (By mouth) (Jardiance), Hypoglycemia in a Person with Diabetes (DC), What is Insulin (DC), Epilepsy (DC), What to Do if Your Blood Sugar is Low (DC), Diabetes and Nutrition (ED), Diabetes and Nutrition (DC), Opioid Safety, Seizures Activity Restrictions/Additional Instructions: Sliding scale moderate dose intensity. 141-180 mg/dl - 4 units/SQ 181-220 mg/dl - 6 units/SQ 221-260 mg/dl - 8 units/SQ 261-300 mg/dl - 10 units/SQ 301-350 mg/dl - 12 units/SQ 351-400 mg/dl - 14 units/SQ greater than 400 mg/dl - 16 units/SQ Please check your blood glucose daily fasting and 2 hours after meals. Follow a consistent carbohydrate diet. Please avoid driving secondary to your seizure history. Discharge Attestations Time Spent in Discharge Care*: greater than 30 min Quality Metrics Clinical Quality Measures [ No reported AMI, CVA or VTE this stay] Coding Level of Care Code 64094 Total time (in minutes) for Discharge: 40 Diagnoses Breakthrough seizure G40.919 Generalized seizure R56.9 Type 2 diabetes mellitus without complication, without long-term current use of insulin E11.9 Diabetes mellitus complication status: without complication Diabetes mellitus long distance operator insulin use: without skilled nursing use Acute hyperglycemia R73.9 Essential (primary) hypertension I10 Shortness of breath R06.02 Personal history of pulmonary embolism Z86.711 COPD (chronic obstructive pulmonary disease) J44.9
[2024-02-15 11:05] LABS: Glucose Point of Care 291 mg/dL (70-110)
== END 2024-02-15 12:36 | disposition home or self-care (01) | DRG 101 ==
LOC: ER 14:02 → MEDSURG 15:33 → ICU 23:45 → MEDSURG 02-14 16:11
PROVIDERS: Admitting Provider Student in an Organized Health Care Education/Training Program; Emergency Provider Emergency Medicine; PCP Family Medicine; Visit Provider Internal Medicine
DX: G40.409 Other generalized epilepsy and epileptic syndromes, not intractable, without status epilepticus (principal); F33.2 Major depressive disorder, recurrent severe without psychotic features; F43.10 Post-traumatic stress disorder, unspecified; E11.65 Type 2 diabetes mellitus with hyperglycemia; F41.9 Anxiety disorder, unspecified; J44.9 Chronic obstructive pulmonary disease, unspecified; K21.9 Gastro-esophageal reflux disease without esophagitis; K59.09 Other constipation; Z86.718 Personal history of other venous thrombosis and embolism; Z79.01 Long term (current) use of anticoagulants; Z86.711 Personal history of pulmonary embolism; G47.33 Obstructive sleep apnea (adult) (pediatric); Z86.73 Personal history of transient ischemic attack (TIA), and cerebral infarction without residual deficits; I10 Essential (primary) hypertension; F60.3 Borderline personality disorder; Z91.51 Personal history of suicidal behavior; R33.9 Retention of urine, unspecified
CPT/HCPCS: 36415; 36416; 71045; 71275; 80048; 80053; 80177; 80306; 81003; 81015; 82009; 82803; 82962; 83036; 83605; 83735; 84100; 84145; 85025; 85378; 93005; 93306; 94640; 94664; 96365; 96372; 96374; 96375; 96376; 99285; G0378; J1200; J1815; J1953; J2060; J2919; J3490; J7030; J7614; J7626; J7644; Q9967

== ENCOUNTER → 2024-03-04 13:04 | Outpatient (BNVA) | payer MEDICARE, MEDICAID, SELFPAY | PROVIDERS: PCP Family Medicine; Visit Provider Psychiatry & Neurology Neurology | DX: G40.909 Epilepsy, unspecified, not intractable, without status epilepticus (principal) | CPT/HCPCS: 99212 ==

== ENCOUNTER → 2024-05-02 17:20 | Outpatient (BNVA) | payer MEDICARE, MEDICAID, SELFPAY | PROVIDERS: PCP Family Medicine; Visit Provider Family Medicine | DX: R39.9 Unspecified symptoms and signs involving the genitourinary system (principal); E11.9 Type 2 diabetes mellitus without complications | CPT/HCPCS: 81000; 82962 ==

== ENCOUNTER 2024-05-10 00:48 | Emergency (ER) | payer MEDICARE, MEDICAID, SELFPAY ==
[2024-05-10] VITALS (14 sets, daily range): BP systolic 91–109; BP diastolic 56–76; PULSE 79–105; RESP 18–24; TEMP 36.9; O2SAT 94–96; BMI 51.5
--- NOTE | 2024-05-10 00:50 | ECG_ITS ---
[facility] Test Date: 2024-05-10 Pat Name: Heladio Branch Department: Room: Gender: Female History Faculty Member: : 1975 Requested By: Boy Guerrero Order Number: [id number] Cordoba MD: Prasanth Nunn M.D. Measurements Intervals [place] Rate: 111 P: 48 MO: 170 QRS: 24 QRSD: 96 T: 66 QT: 358 QTc: 488 Interpretive Statements SINUS TACHYCARDIA Compared to ECG 02/12/2024 12:05:18 Sinus rhythm no longer present Electronically Signed On 05-11-2024 10:26:48 [employer]OCK [employer] by Prasanth Nunn M.D. [email or web address]
--- NOTE | 2024-05-10 00:53 | XRR_ITS ---
PROCEDURE INFORMATION: Exam: XR Chest Exam date and time: 05/10/2024 12:59 AM Age: 48 years old Clinical indication: Pain; Chest pressure; Additional info: Chest pain TECHNIQUE: Imaging protocol: Radiologic exam of the chest. Views: 1 view. COMPARISON: CT angio chest PE protcl [id number] 02/12/2024 4:52 PM FINDINGS: Lungs: Unremarkable. No consolidation. Pleural spaces: Unremarkable. No pleural effusion. No pneumothorax. Heart/Mediastinum: Unremarkable. No cardiomegaly. Bones/joints: Unremarkable. XR/XR chest 1V portable [id number] IMPRESSION: No acute cardiopulmonary process.
--- NOTE | 2024-05-10 00:57 | ED_ITS ---
HPI - Chest Pain 2 General: Chief Complaint: Chest Pain Stated Complaint: Chest Pain Time Seen by Provider: 05/10/24 00:48 History of Present Illness: Patient presents to the ER with complaints of chest pain radiates to her back radiates into her left arm that radiates up into her head. It sounds like she had an NSTEMI back in 2010. Patient was given 3 and 24 mL aspirin by EMS. Patient denies any nausea vomiting shortness of breath diaphoresis. Related Data Home Medications Medication Instructions Recorded Confirmed alprazolam 2 mg tablet (Xanax) 2 mg PO TID PRN Anxiety 11/16/19 05/02/24 aripiprazole 5 mg tablet (Abilify) 5 mg PO DAILY 04/27/23 05/02/24 desvenlafaxine succinate 100 mg 100 mg PO QAM 05/16/23 05/02/24 tablet,extended release 24 hr (Pristiq) desipramine 100 mg tablet 100 mg PO DAILY 10/24/23 05/02/24 oxcarbazepine 300 mg tablet 300 mg PO DAILY 10/24/23 05/02/24 quetiapine 300 mg tablet 300 mg PO QPM 10/24/23 05/02/24 cyanocobalamin (vitamin B-12) 1,000 mcg PO DAILY 02/12/24 05/02/24 1,000 mcg tablet Previous Rx's Medication Instructions Recorded blood sugar diagnostic (Blood #100 ea 04/24/23 Glucose Test strips) blood sugar diagnostic (Blood #50 ea 02/15/24 Glucose Test strips) blood-glucose meter (Blood Glucose #1 ea 02/15/24 Monitoring kit) insulin glargine 100 unit/mL 25 unit (0.25 mL) SUBCUT QAM #6 mL 02/15/24 subcutaneous solution (Lantus U-100 Insulin) insulin lispro 100 unit/mL 0 unit (0 mL) SUBCUT WM&BEDTIME #5 02/15/24 subcutaneous solution (Humalog mL U-100 Insulin) lancets-blood glucose test #1 ea 02/15/24 strips-pen needles with gauze kit atorvastatin 40 mg tablet 40 mg PO DAILY #30 tabs 03/07/24 empagliflozin 25 mg tablet 25 mg PO DAILY #30 tabs 03/07/24 fenofibrate 160 mg tablet 160 mg PO DAILY #30 tabs 03/07/24 levetiracetam 500 mg tablet 1,000 mg (2 x 500 mg) PO BID #120 03/07/24 tabs metformin 500 mg tablet,extended 1,000 mg (2 x 500 mg) PO BID #120 03/07/24 release 24 hr tabs omeprazole 40 mg capsule,delayed 40 mg PO DAILY #30 caps 03/07/24 release potassium chloride 20 mEq 20 meq PO DAILY #30 tabs 03/07/24 tablet,extended release(part/cryst) nystatin 100,000 unit/gram topical 1 applic topical BID #30 grams 03/14/24 cream ferrous sulfate 325 mg (65 mg See Rx Instructions .Route 05/06/24 iron) tablet (FeroSul) .COMPLEX #30 tabs isosorbide dinitrate 20 mg tablet See Rx Instructions .Route 05/06/24 .COMPLEX #60 tabs metoprolol tartrate 100 mg tablet See Rx Instructions .Route 05/06/24 .COMPLEX #60 tabs Allergies Allergy/AdvReac Type Severity Reaction Status Date / Time clonazepam [From Klonopin] Allergy Unknown Verified 05/02/24 17:11 Fish Containing Products Allergy anaphylaxis Verified 05/02/24 17:11 iodine Allergy ALGY-Anaphy Verified 05/02/24 17:11 laxis bupropion [From Wellbutrin] AdvReac Severe sucidal Verified 05/02/24 17:11 fluoxetine [From Prozac] AdvReac Severe sucidal Verified 05/02/24 17:11 topiramate [From Topamax] AdvReac Severe passing out Verified 05/02/24 17:11 venlafaxine [From Effexor] AdvReac Intermediate hives Verified 05/02/24 17:11 lamotrigine [From Lamictal] AdvReac Mild weight gain Verified 05/02/24 17:11 duloxetine [From Cymbalta] AdvReac Unknown Bumps Verified 05/02/24 17:11 inside mouth escitalopram [From Lexapro] AdvReac Unknown Made me Verified 05/02/24 17:11 psychotic sumatriptan AdvReac ADR-Depress Verified 05/02/24 17:11 ion Review of Systems 2 General: Reports: 10 or more systems reviewed and unremarkable except in HPI and below PFSH ED 2 PFSH: Medical History Seizure disorder PTSD (post-traumatic stress disorder) Type 2 diabetes mellitus Anxiety Depression with suicidal ideation COPD (chronic obstructive pulmonary disease) Gastro-esophageal reflux disease without esophagitis Controlled with medication. Chronic constipation Controlled with medications followed by her primary care provider H/O deep venous thrombosis Reports having a DVT in 2019 and states her warfarin dose was increased after this. She follows up with Dr. Crespo -had second DVT in 11/2019 and was taken off warfarin and is now on eliquis Personal history of pulmonary embolism (2013) Depression Diagnosed at the age of 23 and has been on medication since then. She follows up with Dr. Benitez a psychiatrist and as well as therapy in [place]. She currently denies suicidal/homicidal ideation. Obstructive sleep apnea TIA (transient ischemic attack) Reports having had a TIA in 2019. Denies any neurological deficits. Followed by her primary care provider. Essential (primary) hypertension Diagnosed in 2019 and she follows up with Dr. Anderson and cardiology. Surgical History Status post conization of cervix Office LEEP procedure performed by Dr. Zelaya in 2005 for MARY-2 on Pap smear. 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 Status post knee surgery 2018-open knee surgery for torn ACL Status post left breast lumpectomy Patient reports having had 3 lumpectomies of her left breast in 1999, 2007 and 2009 for benign lesions. Family History Mother Hypertension Heart disease Grandmother Hypertension maternal and paternal Breast cancer maternal, diagnosed at age 43 Colon cancer maternal, diagnosed at age 63 Father Hypertension Grandfather Hypertension maternal and paternal Heart disease maternal Denies family history of Ovarian cancer Diabetes Uterine cancer Thyroid disease Stroke Social History Smoking and tobacco/nicotine status: unknown if used tobacco/nicotine Second hand smoke exposure: Yes Alcohol intake: former Substance/Drug Use: former Date of last use: 03/12/2023 Former substance use details: Marijuana Lives independently: Yes Housing: House Marital status: Single Number of children: 0 service: No Current occupational status: disabled Current gender identity: Female Special tereza needs: No Agree to transfusion: Yes Physical Exam 2 Const: COMMON NORMALS: no acute distress, average body habitus, patient oriented x3, no limitations, healthy appearing, alert and well nourished Neck/C-Spine: COMMON NORMALS: full ROM, no lymphadenopathy, supple, no meningeal signs, no JVD and Thyroid normal THYROID: Thyroid normal Chest: COMMONS NORMALS: normal inspection of the chest and normal palpation of entire chest wall Resp: COMMON NORMALS: normal respiratory effort, No retractions, No use of accessory muscles and clear to auscultation bilaterally AUSCULTATION: clear to auscultation bilaterally Cardio: COMMON NORMALS: no JVD, regular rate, regular rhythm, S1 normal heart sound present, S2 normal heart sound present, No gallops present (Cardio), No clicks present (Cardio), No murmurs present (Cardio) and No rub (Cardio) R ATE: regular rate RHYTHM: regular rhythm HEART SOUNDS: S1 normal heart sound present and S2 normal heart sound present GI: COMMON NORMALS: Normal to inspection, nondistended, normoactive bowel sounds present, Soft to palpation, non-tender, No hepatosplenomegaly present and no masses PALPATION: Yes Soft to palpation and Yes No hepatosplenomegaly present Neuro: COMMON NORMALS: patient oriented x3 SENSORIUM/ORIENTATION: Yes alert MENINGEAL SIGNS: Yes no meningeal signs Course 2 Vital Signs: Vital signs: Vital Signs Temperature 98.4 F 05/10/24 00:57 Pulse Rate 80 05/10/24 03:00 Respiratory Rate 22 H 05/10/24 02:30 Blood Pressure 99/56 05/10/24 03:00 Pulse Oximetry 95 05/10/24 03:00 Oxygen Delivery Me thod Room Air 05/10/24 01:26 MDM - Chest Pain Medical Decision Making Patient had lab work chest x-ray serial EKGs, interrogation of her pacemaker. All of which was normal. Patient's heart rate stayed 105 bpm or lower during her stay. Patient will be discharged. Medical Records I reviewed the patient's medical records. Lab Data I reviewed the patient's lab results. 05/10/24 00:46 05/10/24 00:46 Radiology Impressions Chest X-Ray 05/10/24 00:53 IMPRESSION: No acute cardiopulmonary process. Laboratory Results WBC 6.96 10^3/uL (3.29-11.43) 05/10/24 00:46 RBC 4.46 10^6/uL (3.85-5.65) 05/10/24 00:46 Hgb 13.30 g/dL (11.27-16.99) 05/10/24 00:46 Hct 42.2 % (36-47) 05/10/24 00:46 MCV 94.6 fl (85-98) 05/10/24 00:46 MCH 29.8 pg (27-33) 05/10/24 00:46 MCHC 31.5 g/dL (30-55) 05/10/24 00:46 RDW 12.7 % (12.1-15.1) 05/10/24 00:46 Plt Count 305 10^3/cmm (157-399) 05/10/24 00:46 MPV 11.1 fL (7.4-10.4) H 05/10/24 00:46 Neut % (Auto) 58.5 % 05/10/24 00:46 Lymph % (Auto) 29.5 % 05/10/24 00:46 [place] % (Auto) 8.9 % 05/10/24 00:46 Eos % (Auto) 2.4 % 05/10/24 00:46 Baso % (Auto) 0.4 % 05/10/24 00:46 Neut # (Auto) 4.07 10^3/uL (1.8-7.7) 05/10/24 00:46 Lymph # (Auto) 2.1 10^3/uL (0.8-4.8) 05/10/24 00:46 [place] # (Auto) 0.6 10^3/uL (0.2-0.9) 05/10/24 00:46 Eos # (Auto) 0.2 10^3/uL (0.0-0.8) 05/10/24 00:46 Baso # (Auto) 0.0 10^3/uL (0.0-0.1) 05/10/24 00:46 Nucleated RBC % (auto) 0 % 05/10/24 00:46 Nucleated RBCs # 0.0 /100WBC 05/10/24 00:46 Sodium 139 mmol/L (136-145) 05/10/24 00:46 Potassium 3.9 mmol/L (3.5-5.1) 05/10/24 00:46 Chloride 102 mmol/L (98-107) 05/10/24 00:46 Carbon Dioxide 25 mmol/L (22-29) 05/10/24 00:46 Anion Gap 15.9 (5-19) 05/10/24 00:46 BUN 9 mg/dL (6-20) 05/10/24 00:46 Creatinine 1.0 mg/dL (0.5-0.9) H 05/10/24 00:46 GFR Calculation 59.7 mL/min (90-130) L 05/10/24 00:46 Glucose 88 mg/dL (65-115) 05/10/24 00:46 Calculated Osmolality 286 mOsm/kg (285-295) 05/10/24 00:46 Calcium 9.1 mg/dL (8.5-10.5) 05/10/24 00:46 Total Bilirubin 0.2 mg/dL (0.15-1.2) 05/10/24 00:46 AST 21 U/L (0-32) 05/10/24 00:46 ALT 28 U/L (0-33) 05/10/24 00:46 Alkaline Phosphatase 64 U/L (35-105) 05/10/24 00:46 Troponin T Baseline < 6 ng/L (0-10) 05/10/24 00:46 Troponin T 120 Minute 6.00 ng/L (0-10) 05/10/24 02:37 Delta Troponin T 0.36926 ABS# (0-10) 05/10/24 02:37 Total Protein 7.3 g/dL (6.6-8.7) 05/10/24 00:46 Albumin 4.1 g/dL (3.5-5.2) 05/10/24 00:46 Globulin 3.2 g/dL (1.3-4.6) 05/10/24 00:46 Urine Color Yellow (Yellow) 05/10/24 01:51 Urine Appearance Cloudy (CLEAR) A 05/10/24 01:51 Urine pH 5.0 (5-7) 05/10/24 01:51 Ur Specific [place] 1.037 (1.005-1.030) H 05/10/24 01:51 Urine Protein Negative (Negative) 05/10/24 01:51 Urine Glucose (UA) 3+ (Normal) H 05/10/24 01:51 Urine Ketones Negative (Negative) 05/10/24 01:51 Urine Blood Trace (Negative) A 05/10/24 01:51 Urine Nitrate Negative (Negative) 05/10/24 01:51 Urine Bilirubin Negative (Negative) 05/10/24 01:51 Urine Urobilinogen 0.2 mg/dL (Negative) 05/10/24 01:51 Ur Leukocyte Esterase 2+ (Negative) A 05/10/24 01:51 Urine RBC 0-2 /hpf (0-2) 05/10/24 01:51 Urine WBC >100 /hpf (0-5) H 05/10/24 01:51 Ur Squamous Epith Cells 6-10 /hpf (0-5) 05/10/24 01:51 Amorphous Sediment Not Reportable 05/10/24 01:51 Urine Bacteria 3+ /hpf (NONE) H 05/10/24 01:51 Hyaline Casts 0-4 /lpf H 05/10/24 01:51 Coronavirus (PCR) Negative (Negative) 05/10/24 01:51 Influenza A (PCR) Negative (Negative) 05/10/24 01:51 Influenza Type B (PCR) Negative (Negative) 05/10/24 01:51 RSV (PCR) Negative (Negative) 05/10/24 01:51 All radiology interpretation(s) finalized by discharge Discharge Plan Discharge Patient Disposition: Home Clinical Impression: Palpitation Condition: Stable Prescriptions: No Action desipramine 100 mg tablet 100 mg PO DAILY quetiapine 300 mg tablet 300 mg PO QPM oxcarbazepine 300 mg tablet 300 mg PO DAILY metformin 500 mg tablet extended release 24 hr 1,000 mg PO BID Qty: 120 3RF empagliflozin 25 mg tablet 25 mg PO DAILY Qty: 30 3RF aripiprazole [Abilify] 5 mg tablet 5 mg PO DAILY (DME) Blood Glucose Test Strip See Rx Instructions .Route Qty: 100 3RF Rx Instructions: As directed; pt to test 1 x day and prn hypoglycemia omeprazole 40 mg capsule,delayed release(DR/EC) 40 mg PO DAILY Qty: 30 3RF potassium chloride 20 mEq tablet,ER particles/crystals 20 meq PO DAILY Qty: 30 3RF fenofibrate 160 mg tablet 160 mg PO DAILY Qty: 30 3RF atorvastatin 40 mg tablet 40 mg PO DAILY Qty: 30 5RF levetiracetam 500 mg tablet 1,000 mg PO BID Qty: 120 2RF nystatin 100,000 unit/gram cream 1 applic topical BID Qty: 30 1RF metoprolol tartrate 100 mg tablet See Rx Instructions .ROUTE .COMPLEX Qty: 60 0RF Dose Instruction: TAKE ONE TABLET BY MOUTH TWICE DAILY Rx Instructions: TAKE ONE TABLET BY MOUTH TWICE DAILY ferrous sulfate [FeroSul] 325 mg (65 mg iron) tablet See Rx Instructions .ROUTE .COMPLEX Qty: 30 0RF Dose Instruction: TAKE ONE TABLET BY MOUTH EVERY MORNING Rx Instructions: TAKE ONE TABLET BY MOUTH EVERY MORNING isosorbide dinitrate 20 mg tablet See Rx Instructions .ROUTE .COMPLEX Qty: 60 0RF Dose Instruction: TAKE ONE TABLET BY MOUTH TWICE DAILY Rx Instructions: TAKE ONE TABLET BY MOUTH TWICE DAILY alprazolam [Xanax] 2 mg Tablet 2 mg PO TID PRN (Reason: Anxiety) cyanocobalamin (vitamin B-12) 1,000 mcg tablet 1,000 mcg PO DAILY Lantus U-100 Insulin 100 unit/mL Solution 25 unit SUBCUT QAM Qty: 6 0RF Humalog U-100 Insulin 100 unit/mL Solution 0 unit SUBCUT WM&BEDTIME Qty: 5 0RF (DME) lancet-gluc ocgvl-veesmr-voezu Kit See Rx Instructions .Route Qty: 1 0RF Rx Instructions: As directed (DME) Blood Glucose Monitoring Kit See Rx Instructions .Route Qty: 1 0RF Rx Instructions: As directed (DME) Blood Glucose Test Strip See Rx Instructions .Route Qty: 50 0RF Rx Instructions: As directed desvenlafaxine succinate [Pristiq] 100 mg tablet extended release 24 hr 100 mg PO QAM Discharge Orders: Discharge ED (Routine); Ordered 05/10/24 Ordered By: Boy Guerrero Referrals: Pham Jackman MD [Primary Care Provider] - 1 week Patient Instructions: Heart Palpitations (ED), Tachycardia (ED) Activity Restrictions/Additional Instructions: Your lab work, chest x-ray and EKG did not show any acute changes to allow for your symptomatology. Your pacemaker interrogation showed it was working appropriately. Please follow-up with your family practice physician and/or ladies attendant within the next 7 days for further evaluation and treatment. Coding Level of Care Code ED Undercover Agent for Marci Helms
[2024-05-10 01:03] LABS: Basophils % 0.4 %; Eosinophils # 0.2 10^3/uL (0.0-0.8); Eosinophils % 2.4 %; Hematocrit 42.2 % (36-47); Lymphocytes # 2.1 10^3/uL (0.8-4.8); Lymphocytes % 29.5 %; Mean Corpuscular HGB Conc 31.5 g/dL (30-55); Mean Corpuscular Hemoglobin 29.8 pg (27-33); Mean Corpuscular Volume 94.6 fl (85-98); Mean Platelet Volume 11.1 fL (7.4-10.4); Monocytes # 0.6 10^3/uL (0.2-0.9); Monocytes % 8.9 %; Neutrophils # 4.07 10^3/uL (1.8-7.7); Neutrophils % 58.5 %; Nucleated Red Blood Cells % 0 %; Platelet Count 305 10^3/cmm (157-399); Red Blood Count 4.46 10^6/uL (3.85-5.65); Red Cell Distribution Width 12.7 % (12.1-15.1); White Blood Count 6.96 10^3/uL (3.29-11.43)
[2024-05-10 01:23] LABS: Alanine Aminotransferase 28 U/L (0-33); Albumin Level 4.1 g/dL (3.5-5.2); Alkaline Phosphatase 64 U/L (35-105); Anion Gap 15.9 (5-19); Aspartate Amino Transferase 21 U/L (0-32); Blood Urea Nitrogen 9 mg/dL (6-20); Calcium 9.1 mg/dL (8.5-10.5); Carbon Dioxide 25 mmol/L (22-29); Chloride 102 mmol/L (98-107); Creatinine Clr Calc Pharmacy 96.8246; Globulin 3.2 g/dL (1.3-4.6); Glomerular Filtration Rate 59.7 mL/min (90-130); Glucose 88 mg/dL (65-115); Osmolality Calculated 286 mOsm/kg (285-295); Potassium 3.9 mmol/L (3.5-5.1); Sodium 139 mmol/L (136-145); Total Bilirubin 0.2 mg/dL (0.15-1.2); Total Protein 7.3 g/dL (6.6-8.7)
[2024-05-10 01:24] LABS: Troponin(5th) Baseline < 6 ng/L (0-10)
[2024-05-10] MEDS: ketorolac 30 mg/mL INJ IVP (01:39)
[2024-05-10 02:08] LABS: Bilirubin Urine Negative (Negative); Blood Urine Trace (Negative); Glucose Urine UA 3+ (Normal); Ketones Urine Negative (Negative); Leukocyte Esterase Urine 2+ (Negative); Nitrate Urine Negative (Negative); Protein Urine Negative (Negative); Urine Appearance Cloudy (CLEAR); Urine Color Yellow (Yellow); Urobilinogen Urine 0.2 mg/dL (Negative)
[2024-05-10 02:13] LABS: Add Urine Microscopic? YES; Bacteria Urine 3+ /hpf; Hyaline Casts Urine 0-4 /lpf; RBC Urine 0-2 /hpf (0-2); WBC Urine >100 /hpf (0-5)
[2024-05-10 02:27] LABS: Add Urine Culture? Yes; Specific Gravity, Urine 1.037 (1.005-1.030)
[2024-05-10 02:37] LABS: Covid PCR NEGATIVE (Negative); Influenza A NEGATIVE (Negative); Influenza B NEGATIVE (Negative); Respiratory Syncytial Virus Ce NEGATIVE (Negative)
[2024-05-10 03:03] LABS: Troponin 5 2HR Delta 0.00001 ABS# (0-10)
== END 2024-05-10 03:25 | disposition home or self-care (01) ==
PROVIDERS: Emergency Provider Emergency Medicine; PCP Family Medicine
DX: R00.2 Palpitations (principal); Z79.84 Long term (current) use of oral hypoglycemic drugs; Z11.52 Encounter for screening for COVID-19; E11.9 Type 2 diabetes mellitus without complications; J44.9 Chronic obstructive pulmonary disease, unspecified; I10 Essential (primary) hypertension; Z86.73 Personal history of transient ischemic attack (TIA), and cerebral infarction without residual deficits
CPT/HCPCS: 0241U; 36415; 71045; 80053; 81001; 84484; 85025; 87086; 93005; 96374; 99285; J1885

== ENCOUNTER 2024-06-21 14:37 | Emergency (ER) | payer MEDICARE, MEDICAID, SELFPAY ==
[2024-06-21 14:39] VITALS: BP 115/71; PULSE 81; RESP 25; O2SAT 98; BMI 48.0
--- NOTE | 2024-06-21 14:42 | CTR_ITS ---
PROCEDURE INFORMATION: Exam: CT Head Without Contrast Exam date and time: 06/21/2024 3:10 PM Age: 49 years old Clinical indication: Injury or trauma; Fall; Blunt trauma (contusions or hematomas); Additional info: Fall, head injury TECHNIQUE: Imaging protocol: Computed tomography of the head without contrast. Axial, coronal and sagittal reformatted images were created and reviewed. Radiation optimization: All CT scans at this facility use at least one of these dose optimization techniques: automated exposure control; mA and/or kV adjustment per patient size (includes targeted exams where dose is matched to clinical indication); or iterative reconstruction. COMPARISON: CT head wo con* [id number] 08/20/2023 12:00 PM RADIATION DOSE METRICS: Total DLP (mGy-cm): 1032 FINDINGS: Brain: No CT evidence of acute intracranial hemorrhage or acute territorial infarction. No significant mass effect or midline shift. Basal cisterns patent. Cerebral ventricles: Prominence of the cortical sulci, cisterns and ventricular system, consistent with cerebral and cerebellar volume loss. Paranasal sinuses: Unremarkable. No fluid levels. Mastoid air cells: Grossly unremarkable. Bones: Unremarkable. No acute fracture. Soft tissues: Right frontoparietal scalp swelling. CT/CT head wo con* [id number] IMPRESSION: 1. No CT evidence of acute intracranial pathology. 2. Additional findings, as above.
--- NOTE | 2024-06-21 14:43 | ED_ITS ---
HPI - Seizure 2 General: Chief Complaint: Seizure Stated Complaint: fall, seizure Time Seen by Provider: 06/21/24 14:39 History of Present Illness: HPI Narrative: 49-year-old female with a history of sei zure disorder who presents to the emergency room after having a seizure. Unclear how long this lasted. EMS says when they arrived she was postictal. She was very somnolent initially. On arrival here she is alert and oriented. She is complaining of some allover pain and a bit of a headache. No loss of bowel or bladder continence. No tongue injuries or other visible injuries at this time. She has not been taking her Keppra for about a month now because she says her insurance was not covering it. Seizure History: Yes Related Data Home Medications Medication Instructions Recorded Confirmed alprazolam 2 mg tablet (Xanax) 2 mg PO TID PRN Anxiety 11/16/19 06/21/24 aripiprazole 5 mg tablet (Abilify) 5 mg PO DAILY 04/27/23 06/21/24 desvenlafaxine succinate 100 mg 100 mg PO QAM 05/16/23 06/21/24 tablet,extended release 24 hr (Pristiq) desipramine 100 mg tablet 100 mg PO DAILY 10/24/23 06/21/24 oxcarbazepine 300 mg tablet 300 mg PO DAILY 10/24/23 06/21/24 quetiapine 300 mg tablet 300 mg PO QPM 10/24/23 06/21/24 cyanocobalamin (vitamin B-12) 1,000 mcg PO DAILY 02/12/24 06/21/24 1,000 mcg tablet apixaban 5 mg tablet (Eliquis) 5 mg PO BID 06/21/24 06/21/24 ferrous sulfate 325 mg (65 mg 325 mg PO QAM 06/21/24 06/21/24 iron) tablet (FeroSul) isosorbide dinitrate 20 mg tablet 20 mg PO BID 06/21/24 06/21/24 metoprolol tartrate 100 mg tablet 100 mg PO BID 06/21/24 06/21/24 ramelteon 8 mg tablet 8 mg PO QPM 06/21/24 06/21/24 semaglutide 0.25 mg or 0.5 mg (2 0.5 mg SUBCUT Q7D 06/21/24 06/21/24 mg/3 mL) subcutaneous pen injector (OzEvgenic) Previous Rx's Medication Instructions Recorded blood sugar diagnostic (Blood #100 ea 04/24/23 Glucose Test strips) blood sugar diagnostic (Blood #50 ea 02/15/24 Glucose Test strips) blood-glucose meter (Blood Glucose #1 ea 02/15/24 Monitoring kit) lancets-blood glucose test #1 ea 02/15/24 strips-pen needles with gauze kit atorvastatin 40 mg tablet 40 mg PO DAILY #30 tabs 03/07/24 empagliflozin 25 mg tablet 25 mg PO DAILY #30 tabs 03/07/24 fenofibrate 160 mg tablet 160 mg PO DAILY #30 tabs 03/07/24 levetiracetam 500 mg tablet 1,000 mg (2 x 500 mg) PO BID #120 03/07/24 tabs metformin 500 mg tablet,extended 1,000 mg (2 x 500 mg) PO BID #120 03/07/24 release 24 hr tabs omeprazole 40 mg capsule,delayed 40 mg PO DAILY #30 caps 03/07/24 release potassium chloride 20 mEq 20 meq PO DAILY #30 tabs 03/07/24 tablet,extended release(part/cryst) cefdinir 300 mg capsule 300 mg PO BID 5 days #10 caps 06/21/24 levetiracetam 500 mg tablet 1,000 mg (2 x 500 mg) PO BID 30 06/21/24 (Keppra) days #120 tabs Allergies Allergy/AdvReac Type Severity Reaction Status Date / Time clonazepam [From Klonopin] Allergy Unknown Verified 05/02/24 17:11 Fish Containing Products Allergy anaphylaxis Verified 05/02/24 17:11 iodine Allergy ALGY-Anaphy Verified 05/02/24 17:11 laxis bupropion [From Wellbutrin] AdvReac Severe sucidal Verified 05/02/24 17:11 fluoxetine [From Prozac] AdvReac Severe sucidal Verified 05/02/24 17:11 topiramate [From Topamax] AdvReac Severe passing out Verified 05/02/24 17:11 venlafaxine [From Effexor] AdvReac Intermediate hives Verified 05/02/24 17:11 lamotrigine [From Lamictal] AdvReac Mild weight gain Verified 05/02/24 17:11 duloxetine [From Cymbalta] AdvReac Unknown Bumps Verified 05/02/24 17:11 inside mouth escitalopram [From Lexapro] AdvReac Unknown Made me Verified 05/02/24 17:11 psychotic sumatriptan AdvReac ADR-Depress Verified 05/02/24 17:11 ion Review of Systems 2 Narrative: Constitutional symptoms: Negative except as documented in HPI. Skin symptoms: Negative except as documented in HPI. Eye symptoms: Negative except as documented in HPI. ENMT symptoms: Negative except as documented in HPI. Respiratory symptoms: Negative except as documented in HPI. Cardiovascular symptoms: Negative except as documented in HPI. Gastrointestinal symptoms: Negative except as documented in HPI. Genitourinary symptoms: Negative except as documented in HPI. Musculoskeletal symptoms: Negative except as documented in HPI. Neurologic symptoms: Negative except as documented in HPI. Psychiatric symptoms: Negative except as documented in HPI. Endocrine symptoms: Negative except as documented in HPI. PFSH ED 2 PFSH: Medical History Seizure disorder PTSD (post-traumatic stress disorder) Type 2 diabetes mellitus Anxiety Depression with suicidal ideation COPD (chronic obstructive pulmonary disease) Gastro-esophageal reflux disease without esophagitis Controlled with medication. Chronic constipation Controlled with medications followed by her primary care provider H/O deep venous thrombosis Reports having a DVT in 2019 and states her warfarin dose was increased after this. She follows up with Dr. Crespo -had second DVT in 11/2019 and was taken off warfarin and is now on eliquis Personal history of pulmonary embolism (2014) Depression Diagnosed at the age of 23 and has been on medication since then. She follows up with Dr. Benitez a psychiatrist and as well as therapy in [place]. She currently denies suicidal/homicidal ideation. Obstructive sleep apnea TIA (transient ischemic attack) Reports having had a TIA in 2019. Denies any neurological deficits. Followed by her primary care provider. Essential (primary) hypertension Diagnosed in 2019 and she follows up with Dr. Anderson and cardiology. Surgical History Status post conization of cervix Office LEEP procedure performed by Dr. Zelaya in 2006 for MARY-2 on Pap smear. 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 Status post knee surgery 2018-open knee surgery for torn ACL Status post left breast lumpectomy Patient reports having had 3 lumpectomies of her left breast in 1999, 2007 and 2009 for benign lesions. Family History Mother Hypertension Heart disease Grandmother Hypertension maternal and paternal Breast cancer maternal, diagnosed at age 43 Colon cancer maternal, diagnosed at age 63 Father Hypertension Grandfather Hypertension maternal and paternal Heart disease maternal Denies family history of Ovarian cancer Diabetes Uterine cancer Thyroid disease Stroke Social History Smoking and tobacco/nicotine status: unknown if used tobacco/nicotine Second hand smoke exposure: Yes Alcohol intake: former Substance/Drug Use: former Date of last use: 03/12/2023 Former substance use details: Marijuana Lives independently: Yes Housing: House Marital status: Single Number of children: 0 service: No Current occupational status: disabled Current gender identity: Female Special tereza needs: No Agree to transfusion: Yes Physical Exam 2 Narrative: EXAM NARRATIVE: General: Alert, no acute distress. Skin: Warm, dry. Head: Normocephalic, atraumatic. Neck: Supple, trachea midline. Eye: Extraocular movements are intact. Ears, nose, mouth and throat: mucosa moist. Cardiovascular: Regular, Normal peripheral perfusion. Respiratory: Lungs are clear to auscultation, respirations are non-labored, breath sounds are equal, Symmetrical chest wall expansion. Gastrointestinal: Soft, Nontender, Non distended Musculoskeletal: Normal ROM, no deformity. Neurological: Alert and oriented, No focal neurological deficit observed. Psychiatric: Cooperative, appropriate mood & affect. Course 2 Vital Signs: Vital signs: Vital Signs Pulse Rate 81 06/21/24 14:39 Respiratory Rate 25 H 06/21/24 14:39 Blood Pressure 115/71 06/21/24 14:39 Pulse Oximetry 98 06/21/24 14:39 Oxygen Delivery Me thod Room Air 06/21/24 14:39 MDM - Seizure MDM Narrative Medical decision making narrative: Medical decision making: Differential diagnosis for this patient with a complaint of seizure like activity would include but not be limited to, and based on the above HPI, review of systems and physical exam: seizure, DT's, alcohol withdrawal, brain malignancy, pseudo-seizure, syncope. Orders placed to evaluate differential diagnosis based on the above differential, HPI and physical exam CT head: No acute intracranial process. no intracranial hemorrhage, no evidence of infarct. no evidence of acute fracture.This was reviewed and interpreted by myself the ER physician. Lab Review: Laboratory results were reviewed and interpreted by myself the emergency room physician Mild elevation in lactate at 2.4. No leukocytosis. No anemia. No renal failure. Patient does have a urinary tract infection with 11-20 whites and 3+ bacteria. I reviewed the patient's medical record. Reexamination: Patient remained stable. No increased work of breathing. No altered mental status. No focal motor deficits. Assessment and plan: Epilepsy Seizure Medical noncompliance ? 2 g IV Keppra here in the emergency room. I have rewritten her Keppra prescription. - Discharged home - Discussed plan with patient. Answered any questions. - Evaluation and treatment of this problem were appropriate in the emergency setting. Lab Data 06/21/24 14:56 06/21/24 14:56 Labs: Radiology Impressions Head CT 06/21/24 14:[address]: [address] evidence of acute intracranial pathology. 2. Additional findings, as above. Laboratory Results WBC 6.19 10^3/uL (3.29-11.43) 06/21/24 14:56 RBC 4.73 10^6/uL (3.85-5.65) 06/21/24 14:56 Hgb 13.70 g/dL (11.27-16.99) 06/21/24 14:56 Hct 43.6 % (36-47) 06/21/24 14:56 MCV 92.2 fl (85-98) 06/21/24 14:56 MCH 29.0 pg (27-33) 06/21/24 14:56 MCHC 31.4 g/dL (30-55) 06/21/24 14:56 RDW 12.9 % (12.1-15.1) 06/21/24 14:56 Plt Count 289 10^3/cmm (157-399) 06/21/24 14:56 MPV 10.7 fL (7.4-10.4) H 06/21/24 14:56 Neut % (Auto) 59.6 % 06/21/24 14:56 Lymph % (Auto) 27.5 % 06/21/24 14:56 [place] % (Auto) 9.2 % 06/21/24 14:56 Eos % (Auto) 3.1 % 06/21/24 14:56 Baso % (Auto) 0.3 % 06/21/24 14:56 Neut # (Auto) 3.69 10^3/uL (1.8-7.7) 06/21/24 14:56 Lymph # (Auto) 1.7 10^3/uL (0.8-4.8) 06/21/24 14:56 [place] # (Auto) 0.6 10^3/uL (0.2-0.9) 06/21/24 14:56 Eos # (Auto) 0.2 10^3/uL (0.0-0.8) 06/21/24 14:56 Baso # (Auto) 0.0 10^3/uL (0.0-0.1) 06/21/24 14:56 Nucleated RBC % (auto) 0 % 06/21/24 14:56 Nucleated RBCs # 0.0 /100WBC 06/21/24 14:56 Sodium 139 mmol/L (136-145) 06/21/24 14:56 Potassium 4.8 mmol/L (3.5-5.1) 06/21/24 14:56 Chloride 99 mmol/L (98-107) 06/21/24 14:56 Carbon Dioxide 27 mmol/L (22-29) 06/21/24 14:56 Anion Gap 17.8 (5-19) 06/21/24 14:56 BUN 14 mg/dL (6-20) 06/21/24 14:56 Creatinine 1.1 mg/dL (0.5-0.9) H 06/21/24 14:56 GFR Calculation 53.2 mL/min (90-130) L 06/21/24 14:56 Glucose 102 mg/dL (65-115) 06/21/24 14:56 Calculated Osmolality 289 mOsm/kg (285-295) 06/21/24 14:56 Lactic Acid 2.4 mmol/L (0.5-2.2) H 06/21/24 14:56 Calcium 9.9 mg/dL (8.5-10.5) 06/21/24 14:56 Total Bilirubin 0.2 mg/dL (0.15-1.2) 06/21/24 14:56 AST 22 U/L (0-32) 06/21/24 14:56 ALT 32 U/L (0-33) 06/21/24 14:56 Alkaline Phosphatase 53 U/L (35-105) 06/21/24 14:56 Total Protein 7.4 g/dL (6.6-8.7) 06/21/24 14:56 Albumin 4.3 g/dL (3.5-5.2) 06/21/24 14:56 Globulin 3.1 g/dL (1.3-4.6) 06/21/24 14:56 Urine Color Yellow (Yellow) 06/21/24 15:50 Urine Appearance Cloudy (CLEAR) A 06/21/24 15:50 Urine pH 5.0 (5-7) 06/21/24 15:50 Ur Specific [place] 1.035 (1.005-1.030) H 06/21/24 15:50 Urine Protein Negative (Negative) 06/21/24 15:50 Urine Glucose (UA) 2+ (Normal) H 06/21/24 15:50 Urine Ketones Negative (Negative) 06/21/24 15:50 Urine Blood Negative (Negative) 06/21/24 15:50 Urine Nitrate Negative (Negative) 06/21/24 15:50 Urine Bilirubin Negative (Negative) 06/21/24 15:50 Urine Urobilinogen 0.2 mg/dL (Negative) 06/21/24 15:50 Ur Leukocyte Esterase Negative (Negative) 06/21/24 15:50 Urine RBC 0-2 /hpf (0-2) 06/21/24 15:50 Urine WBC 11-20 /hpf (0-5) H 06/21/24 15:50 Ur Squamous Epith Cells 11-20 /hpf (0-5) 06/21/24 15:50 Amorphous Sediment Not Reportable 06/21/24 15:50 Urine Bacteria 3+ /hpf (NONE) H 06/21/24 15:50 Hyaline Casts 0-4 /lpf H 06/21/24 15:50 All radiology interpretation(s) finalized by discharge Discharge Plan Discharge Patient Disposition: Home Clinical Impression: Seizure, Seizure disorder, Medical non-compliance, Urinary tract infection Condition: Stable Prescriptions: New levetiracetam [Keppra] 500 mg tablet 1,000 mg PO BID 30 Days Qty: 120 0RF cefdinir 300 mg capsule 300 mg PO BID 5 Days Qty: 10 0RF No Action desipramine 100 mg tablet 100 mg PO DAILY quetiapine 300 mg tablet 300 mg PO QPM oxcarbazepine 300 mg tablet 300 mg PO DAILY metformin 500 mg tablet extended release 24 hr 1,000 mg PO BID Qty: 120 3RF empagliflozin 25 mg tablet 25 mg PO DAILY Qty: 30 3RF aripiprazole [Abilify] 5 mg tablet 5 mg PO DAILY (DME) Blood Glucose Test Strip See Rx Instructions .Route Qty: 100 3RF Rx Instructions: As directed; pt to test 1 x day and prn hypoglycemia omeprazole 40 mg capsule,delayed release(DR/EC) 40 mg PO DAILY Qty: 30 3RF potassium chloride 20 mEq tablet,ER particles/crystals 20 meq PO DAILY Qty: 30 3RF fenofibrate 160 mg tablet 160 mg PO DAILY Qty: 30 3RF atorvastatin 40 mg tablet 40 mg PO DAILY Qty: 30 5RF levetiracetam 500 mg tablet 1,000 mg PO BID Qty: 120 2RF alprazolam [Xanax] 2 mg Tablet 2 mg PO TID PRN (Reason: Anxiety) cyanocobalamin (vitamin B-12) 1,000 mcg tablet 1,000 mcg PO DAILY (DME) lancet-gluc wcezl-dhaweo-[id number] Kit See Rx Instructions .Route Qty: 1 0RF Rx Instructions: As directed (DME) blood-glucose meter [Blood Glucose Monitoring] Kit See Rx Instructions .Route Qty: 1 0RF Rx Instructions: As directed (DME) Blood Glucose Test Strip See Rx Instructions .Route Qty: 50 0RF Rx Instructions: As directed ramelteon 8 mg tablet 8 mg PO QPM Eliquis 5 mg tablet 5 mg PO BID Ozempic 0.25 mg or 0.5 mg (2 mg/3 mL) pen injector 0.5 mg SUBCUT Q7D metoprolol tartrate 100 mg tablet 100 mg PO BID Rx Instructions: TAKE ONE TABLET BY MOUTH TWICE DAILY isosorbide dinitrate 20 mg tablet 20 mg PO BID Rx Instructions: TAKE ONE TABLET BY MOUTH TWICE DAILY ferrous sulfate [FeroSul] 325 mg (65 mg iron) tablet 325 mg PO QAM Rx Instructions: TAKE ONE TABLET BY MOUTH EVERY MORNING desvenlafaxine succinate [Pristiq] 100 mg tablet extended release 24 hr 100 mg PO QAM Discharge Orders: Discharge ED (Routine); Ordered 06/21/24 Ordered By: Ellen Dunlap Referrals: Pham Jackman MD [Primary Care Provider] - Discharge Diet: Usual diet Discharge Activity: Increase activity as tolerated Patient Instructions: Epilepsy (ED), Opioid Safety, Pain Management Activity Restrictions/Additional Instructions: No driving until cleared by your primary care provider or a neurologist. Thank you for choosing [facility] for your healthcare needs today. Please realize this is an emergency room and that we are providing you with a medical screening exam and this may not be complete and all inclusive of all the testing and or work up that you may need to determine your ailment or severity of your illness. You have been screened and evaluated and felt safe for discharge. Health conditions do change or evolve sometimes and as such it is important that you follow up with your Primary Doctor to be re checked, 3-5 days is a general good time frame for follow up. You are always welcome to return to the ED for re assessment if your symptoms are worsening or you have new concerns Coding Level of Care Code ED Manager Medical Device for Marci Helms
--- NOTE | 2024-06-21 14:46 | ECG_ITS ---
[facility] 2024[facility]21 Pat Name: Heladio Branch Department: Room: Gender: Female [employer] Black [employer]: : 1975 Requested By: Ellen Osborne Order Number: [id number] Cordoba MD: Kathy Anderson M.D. Measurements Intervals [place] Rate: 80 P: 51 SC: 172 QRS: 4 QRSD: 107 T: 71 QT: 369 QTc: 426 Interpretive Statements SINUS RHYTHM Compared to ECG 05/10/2024 00:52:34 Sinus tachycardia no longer present Electronically Signed On 06-21-2024 21:34:41 [employer] by Kathy Anderson M.D. [email or web address]
[2024-06-21 15:05] LABS: Basophils % 0.3 %; Eosinophils # 0.2 10^3/uL (0.0-0.8); Eosinophils % 3.1 %; Hematocrit 43.6 % (36-47); Lymphocytes # 1.7 10^3/uL (0.8-4.8); Lymphocytes % 27.5 %; Mean Corpuscular HGB Conc 31.4 g/dL (30-55); Mean Corpuscular Volume 92.2 fl (85-98); Mean Platelet Volume 10.7 fL (7.4-10.4); Monocytes # 0.6 10^3/uL (0.2-0.9); Monocytes % 9.2 %; Neutrophils # 3.69 10^3/uL (1.8-7.7); Neutrophils % 59.6 %; Nucleated Red Blood Cells % 0 %; Platelet Count 289 10^3/cmm (157-399); Red Blood Count 4.73 10^6/uL (3.85-5.65); Red Cell Distribution Width 12.9 % (12.1-15.1); White Blood Count 6.19 10^3/uL (3.29-11.43)
[2024-06-21] MEDS: levETIRAcetam 2,000 MG/200 ML PREMIX 400 MG IV (15:23)
[2024-06-21 15:26] LABS: Alanine Aminotransferase 32 U/L (0-33); Albumin Level 4.3 g/dL (3.5-5.2); Alkaline Phosphatase 53 U/L (35-105); Anion Gap 17.8 (5-19); Aspartate Amino Transferase 22 U/L (0-32); Blood Urea Nitrogen 14 mg/dL (6-20); Calcium 9.9 mg/dL (8.5-10.5); Carbon Dioxide 27 mmol/L (22-29); Chloride 99 mmol/L (98-107); Globulin 3.1 g/dL (1.3-4.6); Glomerular Filtration Rate 53.2 mL/min (90-130); Glucose 102 mg/dL (65-115); Osmolality Calculated 289 mOsm/kg (285-295); Potassium 4.8 mmol/L (3.5-5.1); Sodium 139 mmol/L (136-145); Total Bilirubin 0.2 mg/dL (0.15-1.2); Total Protein 7.4 g/dL (6.6-8.7)
[2024-06-21 15:27] LABS: Lactic Sepsis W/Reflex 2.4 mmol/L (0.5-2.2)
[2024-06-21 16:03] LABS: Bilirubin Urine Negative (Negative); Blood Urine Negative (Negative); Glucose Urine UA 2+ (Normal); Ketones Urine Negative (Negative); Leukocyte Esterase Urine Negative (Negative); Nitrate Urine Negative (Negative); Protein Urine Negative (Negative); Urine Appearance Cloudy (CLEAR); Urine Color Yellow (Yellow); Urobilinogen Urine 0.2 mg/dL (Negative)
[2024-06-21 16:09] LABS: Bacteria Urine 3+ /hpf; Hyaline Casts Urine 0-4 /lpf; RBC Urine 0-2 /hpf (0-2)
[2024-06-21 16:18] LABS: Specific Gravity, Urine 1.035 (1.005-1.030)
[2024-06-21 16:19] LABS: Add Urine Culture? No
[2024-06-21 16:43] VITALS: BP 104/74; PULSE 87; O2SAT 97
[2024-06-21 16:50] LABS: Reflex Lactate Order REFLEX LACTIC ORDERD
[2024-06-21] MEDS: ketorolac 30 mg/mL INJ IVP (16:54)
[2024-06-21] MEDS: cefTRIAXone 1,000 mg SDV 1000 MG IVP (16:54)
[2024-06-21] MEDS: sodium chloride 0.9% 500 ML 999 ML IV (16:55)
[2024-06-21 17:43] VITALS: BP 113/74; PULSE 83; O2SAT 98
== END 2024-06-21 17:44 | disposition home or self-care (01) ==
PROVIDERS: Emergency Provider Emergency Medicine; PCP Family Medicine
DX: G40.909 Epilepsy, unspecified, not intractable, without status epilepticus (principal); Z91.148 Patient's other noncompliance with medication regimen for other reason; Z79.01 Long term (current) use of anticoagulants; Z86.73 Personal history of transient ischemic attack (TIA), and cerebral infarction without residual deficits; J44.9 Chronic obstructive pulmonary disease, unspecified; E11.9 Type 2 diabetes mellitus without complications
CPT/HCPCS: 36415; 70450; 80053; 81001; 83605; 85025; 93005; 96365; 96375; 99285; J0696; J1885; J1953; J7040

== ENCOUNTER 2024-08-11 04:47 | Emergency (ER) | payer MEDICARE, MEDICAID, SELFPAY ==
[2024-08-11 04:49] VITALS: BP 119/73; PULSE 83; RESP 18; TEMP 37.1; O2SAT 99; BMI 46.0
--- NOTE | 2024-08-11 05:12 | CTR_ITS ---
PROCEDURE INFORMATION: Exam: CT Head Without Contrast Exam date and time: 08/11/2024 5:30 AM Age: 49 years old Clinical indication: Condition or disease; Convulsions or seizures; EMS arrival for seizure. History of seizure disorder. ; Additional info: Sz TECHNIQUE: Imaging protocol: Computed tomography of the head without contrast. Radiation optimization: All CT scans at this facility use at least one of these dose optimization techniques: automated exposure control; mA and/or kV adjustment per patient size (includes targeted exams where dose is matched to clinical indication); or iterative reconstruction. COMPARISON: CT head wo con* [id number] 06/21/2024 3:10 PM RADIATION DOSE METRICS: Total DLP (mGy-cm): 990.13 FINDINGS: Brain: Normal. No hemorrhage. Unremarkable white matter. No mass effect. Cerebral ventricles: No ventriculomegaly. Paranasal sinuses: Visualized sinuses are unremarkable. No fluid levels. Mastoid air cells: Visualized mastoid air cells are well aerated. Bones: Unremarkable. No acute fracture. Soft tissues: Unremarkable. CT/CT head wo con* [id number] IMPRESSION: No acute intracranial abnormality.
--- NOTE | 2024-08-11 05:13 | W.ED.SEIZURE ---
Documented by User: John Yo, DO 08/11/24 19:48 HPI - Seizure General: Chief Complaint: Seizure Stated Complaint: seizures Time Seen by Provider: 08/11/24 04:50 History of Present Illness: HPI Narrative: 49-year-old female with a known history of seizure disorder. She presents after likely seizure episode at home. She states that she had gotten up to go use the restroom, and felt strange . She felt tingly, and her extremities and spine, she was dizzy. She was afraid she might have a seizure so she called her neighbor. The neighbor called EMS. The patient does not remember her episode, only being in the ambulance. She says that she believes she cracked a tooth on the bottom right side, and lost continence of her bladder function. She says she has had a cough, but that is not uncommon for her. No history of fever. No missed doses of medication. No alcohol. She does say that she had marijuana Gummies night before last, but not yesterday. Only medication change, is Ozempic was increased from 0.5-1 recently. Seizure History: Yes Place: Home Related Data Home Medications ?Medication ?Instructions ?Recorded ?Confirmed alprazolam 2 mg tablet (Xanax) 2 mg PO TID PRN Anxiety 11/16/19 08/11/24 aripiprazole 5 mg tablet (Abilify) 5 mg PO DAILY 04/27/23 08/11/24 desvenlafaxine succinate 100 mg 100 mg PO QAM 05/16/23 08/11/24 tablet,extended release 24 hr (Pristiq) desipramine 100 mg tablet 100 mg PO DAILY 10/24/23 08/11/24 oxcarbazepine 300 mg tablet 300 mg PO DAILY 10/24/23 08/11/24 quetiapine 300 mg tablet 300 mg PO QPM 10/24/23 08/11/24 cyanocobalamin (vitamin B-12) 1,000 mcg PO DAILY 02/12/24 08/11/24 1,000 mcg tablet apixaban 5 mg tablet (Eliquis) 5 mg PO BID 06/21/24 08/11/24 ferrous sulfate 325 mg (65 mg 325 mg PO QAM 06/21/24 08/11/24 iron) tablet (FeroSul) isosorbide dinitrate 20 mg tablet 20 mg PO BID 06/21/24 08/11/24 metoprolol tartrate 100 mg tablet 100 mg PO BID 06/21/24 08/11/24 ramelteon 8 mg tablet 8 mg PO QPM 06/21/24 08/11/24 lisinopril 2.5 mg tablet 2.5 mg PO DAILY 08/11/24 08/11/24 semaglutide 1 mg/dose (4 mg/3 mL) 1 mg SUBCUT Q7D 08/11/24 08/11/24 subcutaneous pen injector (Ozempic) Previous Rx's ?Medication ?Instructions ?Recorded blood sugar diagnostic (Blood #100 ea 04/24/23 Glucose Test strips) blood sugar diagnostic (Blood #50 ea 02/15/24 Glucose Test strips) blood-glucose meter (Blood Glucose #1 ea 02/15/24 Monitoring kit) lancets-blood glucose test #1 ea 02/15/24 strips-pen needles with gauze kit atorvastatin 40 mg tablet 40 mg PO DAILY #30 tabs 03/07/24 fenofibrate 160 mg tablet 160 mg PO DAILY #30 tabs 03/07/24 levetiracetam 500 mg tablet 1,000 mg (2 x 500 mg) PO BID #120 03/07/24 tabs metformin 500 mg tablet,extended 1,000 mg (2 x 500 mg) PO BID #120 03/07/24 release 24 hr tabs omeprazole 40 mg capsule,delayed 40 mg PO DAILY #30 caps 03/07/24 release potassium chloride 20 mEq 20 meq PO DAILY #30 tabs 03/07/24 tablet,extended release(part/cryst) Allergies Allergy/AdvReac Type Severity Reaction Status Date / Time clonazepam (From Klonopin) Allergy Unknown Verified 05/02/24 17:11 Fish Containing Products Allergy anaphylaxis Verified 05/02/24 17:11 iodine Allergy ALGY-Anaphy Verified 05/02/24 17:11 laxis bupropion (From Wellbutrin) AdvReac Severe sucidal Verified 05/02/24 17:11 fluoxetine (From Prozac) AdvReac Severe sucidal Verified 05/02/24 17:11 topiramate (From Topamax) AdvReac Severe passing out Verified 05/02/24 17:11 venlafaxine (From Effexor) AdvReac Intermediate hives Verified 05/02/24 17:11 lamotrigine (From Lamictal) AdvReac Mild weight gain Verified 05/02/24 17:11 duloxetine (From Cymbalta) AdvReac Unknown Bumps Verified 05/02/24 17:11 inside mouth escitalopram (From Lexapro) AdvReac Unknown Made me Verified 05/02/24 17:11 psychotic sumatriptan AdvReac ADR-Depress Verified 05/02/24 17:11 ion PFSH ED PFS: Medical History Psychiatric care Seizure disorder PTSD (post-traumatic stress disorder) Type 2 diabetes mellitus Anxiety Depression with suicidal ideation COPD (chronic obstructive pulmonary disease) Gastro-esophageal reflux disease without esophagitis Controlled with medication. Chronic constipation Controlled with medications followed by her primary care provider H/O deep venous thrombosis Reports having a DVT in 2019 and states her warfarin dose was increased after this. She follows up with Dr. Crespo -had second DVT in 11/2019 and was taken off warfarin and is now on eliquis Personal history of pulmonary embolism (2013) Depression Diagnosed at the age of 23 and has been on medication since then. She follows up with Dr. Benitez a psychiatrist and as well as therapy in [place]. She currently denies suicidal/homicidal ideation. Obstructive sleep apnea TIA (transient ischemic attack) Reports having had a TIA in 2019. Denies any neurological deficits. Followed by her primary care provider. Essential (primary) hypertension Diagnosed in 2019 and she follows up with Dr. Anderson and cardiology. Surgical History Status post conization of cervix Office LEEP procedure performed by Dr. Zelaya in 2005 for MARY-2 on Pap smear. 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 Status post knee surgery 2018-open knee surgery for torn ACL Status post left breast lumpectomy Patient reports having had 3 lumpectomies of her left breast in 1999, 2007 and 2009 for benign lesions. Family History Mother Hypertension Heart disease Grandmother Hypertension maternal and paternal Breast cancer maternal, diagnosed at age 43 Colon cancer maternal, diagnosed at age 63 Father Hypertension Grandfather Hypertension maternal and paternal Heart disease maternal Denies family history of Ovarian cancer Diabetes Uterine cancer Thyroid disease Stroke Social History Smoking and tobacco/nicotine status: unknown if used tobacco/nicotine Second hand smoke exposure: Yes Alcohol intake: former Substance/Drug Use: former Date of last use: 03/12/2023 Former substance use details: Marijuana Lives independently: Yes Housing: House Marital status: Single Number of children: 0 service: No Current occupational status: disabled Current gender identity: Female Special tereza needs: No Agree to transfusion: Yes Physical Exam Const: COMMON NORMALS: no acute distress and alert GENERAL APPEARANCE: cooperative; not ill appearing and not frail appearing ORIENTATION/CONSCIOUSNESS: Yes oriented to person and Yes oriented to place HENMT: COMMON NORMALS: normocephalic, atraumatic and Normal external nose present HEAD & SCALP: normocephalic and atraumatic FACE & SINUS: normal facial exam and face symmetric NOSE: Normal external nose present Eye: COMMON NORMALS: Equal, round and reactive pupils present and EOMs intact bilaterally PUPIL: Yes Equal, round and reactive pupils present Neck/C-Spine: GENERAL: Yes trachea midline Chest: CHEST: Yes Symmetrical chest wall rise Resp: COMMON NORMALS: normal respiratory effort, No retractions, No use of accessory muscles and clear to auscultation bilaterally AUSCULTATION: clear to auscultation bilaterally Cardio: COMMON NORMALS: regular rate and regular rhythm RATE: regular rate RHYTHM: regular rhythm GI: COMMON NORMALS: Normal to inspection, nondistended, normoactive bowel sounds present Extremity: COMMON NORMALS: no pedal edema Neuro: ANGEL COMA SCALE: document GCS findings Angel coma scale eye opening: Spontaneous [place] coma scale verbal response: Orientated [place] coma scale motor response: Obey commands [place] coma scale total score: 15 SENSORIUM/ORIENTATION: Yes alert, Yes oriented to person and Yes oriented to place CRANIAL NERVES: Yes CN normal except as noted COORDINATION/BALANCE: [id number]-ul-phyq test normal and vbnn-mf-[id number] test normal SENSORY EXAM: Yes extremities (intact) MOTOR EXAM: Pronator motor function not present and Motor abnormalities not present COORDINATION: fytjut-xo-zcae test normal and rfox-rk-[id number] test normal Psych: COMMON NORMALS: speech normal SPEECH: Yes normal speech Skin: COMMON NORMALS: no rashes or lesions noted GENERAL SKIN EXAM: no rashes or lesions noted Course Vital Signs: Vital signs: Vital Signs Temperature 98.8 F 08/11/24 04:49 Pulse Rate 81 08/11/24 08:35 Respiratory Rate 18 08/11/24 07:44 Blood Pressure 105/68 08/11/24 08:35 Pulse Oximetry 98 08/11/24 08:35 Oxygen Delivery Me thod Room Air 08/11/24 07:44 MDM - Seizure MDM Narrative Medical decision making narrative: Known seizure disorder in this patient. Seems to have recovered. She did lose control of bladder function. Vitals are stable here. Mental status is essentially back to normal. Her neurological exam is nonfocal. Laboratories pending. Patient checked out to the oncoming physician at shift change Lab Data 08/11/24 05:24 08/11/24 05:24 Labs: Radiology Impressions Head CT 08/11/24 05:12 IMPRESSION: No acute intracranial abnormality. Laboratory Results WBC 5.10 10^3/uL (3.29-11.43) 08/11/24 05:24 RBC 4.52 10^6/uL (3.85-5.65) 08/11/24 05:24 Hgb 12.80 g/dL (11.27-16.99) 08/11/24 05:24 Hct 41.3 % (36-47) 08/11/24 05:24 MCV 91.4 fl (85-98) 08/11/24 05:24 MCH 28.3 pg (27-33) 08/11/24 05:24 MCHC 31.0 g/dL (30-55) 08/11/24 05:24 RDW 13.2 % (12.1-15.1) 08/11/24 05:24 Plt Count 284 10^3/cmm (157-399) 08/11/24 05:24 MPV 10.8 fL (7.4-10.4) H 08/11/24 05:24 Neut % (Auto) 53.0 % 08/11/24 05:24 Lymph % (Auto) 32.9 % 08/11/24 05:24 [place] % (Auto) 10.0 % 08/11/24 05:24 Eos % (Auto) 3.7 % 08/11/24 05:24 Baso % (Auto) 0.2 % 08/11/24 05:24 Neut # (Auto) 2.70 10^3/uL (1.8-7.7) 08/11/24 05:24 Lymph # (Auto) 1.7 10^3/uL (0.8-4.8) 08/11/24 05:24 [place] # (Auto) 0.5 10^3/uL (0.2-0.9) 08/11/24 05:24 Eos # (Auto) 0.2 10^3/uL (0.0-0.8) 08/11/24 05:24 Baso # (Auto) 0.0 10^3/uL (0.0-0.1) 08/11/24 05:24 Nucleated RBC % (auto) 0 % 08/11/24 05:24 Nucleated RBCs # 0.0 /100WBC 08/11/24 05:24 Sodium 141 mmol/L (136-145) 08/11/24 05:24 Potassium 3.7 mmol/L (3.5-5.1) 08/11/24 05:24 Chloride 103 mmol/L (98-107) 08/11/24 05:24 Carbon Dioxide 27 mmol/L (22-29) 08/11/24 05:24 Anion Gap 14.7 (5-19) 08/11/24 05:24 BUN 16 mg/dL (6-20) 08/11/24 05:24 Creatinine 1.0 mg/dL (0.5-0.9) H 08/11/24 05:24 GFR Calculation 59.4 mL/min (90-130) L 08/11/24 05:24 Glucose 122 mg/dL (65-115) H 08/11/24 05:24 Calculated Osmolality 294 mOsm/kg (285-295) 08/11/24 05:24 Lactic Acid 1.4 mmol/L (0.5-2.2) 08/11/24 05:24 Calcium 9.4 mg/dL (8.5-10.5) 08/11/24 05:24 Phosphorus 3.2 mg/dL (2.5-4.5) 08/11/24 05:24 Magnesium 1.8 mg/dL (1.7-2.3) 08/11/24 05:24 Total Bilirubin 0.2 mg/dL (0.15-1.2) 08/11/24 05:24 AST 26 U/L (0-32) 08/11/24 05:24 ALT 37 U/L (0-33) H 08/11/24 05:24 Alkaline Phosphatase 47 U/L (35-105) 08/11/24 05:24 Creatine Kinase 65 U/L (26-192) 08/11/24 05:24 Total Protein 6.9 g/dL (6.6-8.7) 08/11/24 05:24 Albumin 4.2 g/dL (3.5-5.2) 08/11/24 05:24 Globulin 2.7 g/dL (1.3-4.6) 08/11/24 05:24 HCG, Qual Negative (Negative) 08/11/24 05:24 Ethyl Alcohol < 10 mg/dL (0-10) 08/11/24 05:24 Discharge Plan Discharge Patient Disposition: Home Clinical Impression: Generalized seizure, Functional neurological symptom disorder with abnormal movement Condition: Stable Prescriptions: No Action desipramine 100 mg tablet 100 mg PO DAILY quetiapine 300 mg tablet 300 mg PO QPM oxcarbazepine 300 mg tablet 300 mg PO DAILY metformin 500 mg tablet extended release 24 hr 1,000 mg PO BID Qty: 120 3RF aripiprazole [Abilify] 5 mg tablet 5 mg PO DAILY (DME) Blood Glucose Test Strip See Rx Instructions .Route Qty: 100 3RF Rx Instructions: As directed; pt to test 1 x day and prn hypoglycemia omeprazole 40 mg capsule,delayed release(DR/EC) 40 mg PO DAILY Qty: 30 3RF potassium chloride 20 mEq tablet,ER particles/crystals 20 meq PO DAILY Qty: 30 3RF fenofibrate 160 mg tablet 160 mg PO DAILY Qty: 30 3RF atorvastatin 40 mg tablet 40 mg PO DAILY Qty: 30 5RF levetiracetam 500 mg tablet 1,000 mg PO BID Qty: 120 2RF alprazolam [Xanax] 2 mg Tablet 2 mg PO TID PRN (Reason: Anxiety) cyanocobalamin (vitamin B-12) 1,000 mcg tablet 1,000 mcg PO DAILY (DME) lancet-gluc lyznj-sltkcj-mpali Kit See Rx Instructions .Route Qty: 1 0RF Rx Instructions: As directed (DME) blood-glucose meter [Blood Glucose Monitoring] Kit See Rx Instructions .Route Qty: 1 0RF Rx Instructions: As directed (DME) Blood Glucose Test Strip See Rx Instructions .Route Qty: 50 0RF Rx Instructions: As directed ramelteon 8 mg tablet 8 mg PO QPM Eliquis 5 mg tablet 5 mg PO BID metoprolol tartrate 100 mg tablet 100 mg PO BID Rx Instructions: TAKE ONE TABLET BY MOUTH TWICE DAILY isosorbide dinitrate 20 mg tablet 20 mg PO BID Rx Instructions: TAKE ONE TABLET BY MOUTH TWICE DAILY ferrous sulfate [FeroSul] 325 mg (65 mg iron) tablet 325 mg PO QAM Rx Instructions: TAKE ONE TABLET BY MOUTH EVERY MORNING lisinopril 2.5 mg tablet 2.5 mg PO DAILY Ozempic 1 mg/dose (4 mg/3 mL) pen injector 1 mg SUBCUT Q7D desvenlafaxine succinate [Pristiq] 100 mg tablet extended release 24 hr 100 mg PO QAM Discharge Orders: Discharge ED (Routine); Ordered 08/11/24 Ordered By: Fiona Rodriguez Referrals: Pham Jackman MD [Physician] - 4-7 days Discharge Diet: Advance as tolerated Discharge Activity: Limit activity as instructed Patient Instructions: Recurrent Seizures in Adults (ED), Opioid Safety, Pain Management Activity Restrictions/Additional Instructions: Return for repeated episodes of seizure, worsening mental status, problems with weakness, speech, etc. Call your doctor on Monday for a follow-up appointment. Let your neurologist know that you were seen here this weekend for a seizure on Monday as well. Print Language: Cameroonian Coding Level of Care Code ED Vat Skimmer for Chg Fwd Documented by User: Fiona Rodriguez MD 08/11/24 15:06 HPI - Seizure General: Chief Complaint: Seizure Stated Complaint: seizures Time Seen by Provider: 08/11/24 04:50 Related Data Home Medications ?Medication ?Instructions ?Recorded ?Confirmed alprazolam 2 mg tablet (Xanax) 2 mg PO TID PRN Anxiety 11/16/19 08/11/24 aripiprazole 5 mg tablet (Abilify) 5 mg PO DAILY 04/27/23 08/11/24 desvenlafaxine succinate 100 mg 100 mg PO QAM 05/16/23 08/11/24 tablet,extended release 24 hr (Pristiq) desipramine 100 mg tablet 100 mg PO DAILY 10/24/23 08/11/24 oxcarbazepine 300 mg tablet 300 mg PO DAILY 10/24/23 08/11/24 quetiapine 300 mg tablet 300 mg PO QPM 10/24/23 08/11/24 cyanocobalamin (vitamin B-12) 1,000 mcg PO DAILY 02/12/24 08/11/24 1,000 mcg tablet apixaban 5 mg tablet (Eliquis) 5 mg PO BID 06/21/24 08/11/24 ferrous sulfate 325 mg (65 mg 325 mg PO QAM 06/21/24 08/11/24 iron) tablet (FeroSul) isosorbide dinitrate 20 mg tablet 20 mg PO BID 06/21/24 08/11/24 metoprolol tartrate 100 mg tablet 100 mg PO BID 06/21/24 08/11/24 ramelteon 8 mg tablet 8 mg PO QPM 06/21/24 08/11/24 lisinopril 2.5 mg tablet 2.5 mg PO DAILY 08/11/24 08/11/24 semaglutide 1 mg/dose (4 mg/3 mL) 1 mg SUBCUT Q7D 08/11/24 08/11/24 subcutaneous pen injector (Ozempic) Previous Rx's ?Medication ?Instructions ?Recorded blood sugar diagnostic (Blood #100 ea 04/24/23 Glucose Test strips) blood sugar diagnostic (Blood #50 ea 02/15/24 Glucose Test strips) blood-glucose meter (Blood Glucose #1 ea 02/15/24 Monitoring kit) lancets-blood glucose test #1 ea 02/15/24 strips-pen needles with gauze kit atorvastatin 40 mg tablet 40 mg PO DAILY #30 tabs 03/07/24 fenofibrate 160 mg tablet 160 mg PO DAILY #30 tabs 03/07/24 levetiracetam 500 mg tablet 1,000 mg (2 x 500 mg) PO BID #120 03/07/24 tabs metformin 500 mg tablet,extended 1,000 mg (2 x 500 mg) PO BID #120 03/07/24 release 24 hr tabs omeprazole 40 mg capsule,delayed 40 mg PO DAILY #30 caps 03/07/24 release potassium chloride 20 mEq 20 meq PO DAILY #30 tabs 03/07/24 tablet,extended release(part/cryst) Allergies Allergy/AdvReac Type Severity Reaction Status Date / Time clonazepam (From Klonopin) Allergy Unknown Verified 05/02/24 17:11 Fish Containing Products Allergy anaphylaxis Verified 05/02/24 17:11 iodine Allergy ALGY-Anaphy Verified 05/02/24 17:11 laxis bupropion (From Wellbutrin) AdvReac Severe sucidal Verified 05/02/24 17:11 fluoxetine (From Prozac) AdvReac Severe sucidal Verified 05/02/24 17:11 topiramate (From Topamax) AdvReac Severe passing out Verified 05/02/24 17:11 venlafaxine (From Effexor) AdvReac Intermediate hives Verified 05/02/24 17:11 lamotrigine (From Lamictal) AdvReac Mild weight gain Verified 05/02/24 17:11 duloxetine (From Cymbalta) AdvReac Unknown Bumps Verified 05/02/24 17:11 inside mouth escitalopram (From Lexapro) AdvReac Unknown Made me Verified 05/02/24 17:11 psychotic sumatriptan AdvReac ADR-Depress Verified 05/02/24 17:11 ion [facility] ED PFSH: Medical History Psychiatric care Seizure disorder PTSD (post-traumatic stress disorder) Type 2 diabetes mellitus Anxiety Depression with suicidal ideation COPD (chronic obstructive pulmonary disease) Gastro-esophageal reflux disease without esophagitis Controlled with medication. Chronic constipation Controlled with medications followed by her primary care provider H/O deep venous thrombosis Reports having a DVT in 2019 and states her warfarin dose was increased after this. She follows up with Dr. Crespo -had second DVT in 11/2019 and was taken off warfarin and is now on eliquis Personal history of pulmonary embolism (2014) Depression Diagnosed at the age of 23 and has been on medication since then. She follows up with Dr. Eli a psychiatrist and as well as therapy in [place]. She currently denies suicidal/homicidal ideation. Obstructive sleep apnea TIA (transient ischemic attack) Reports having had a TIA in 2019. Denies any neurological deficits. Followed by her primary care provider. Essential (primary) hypertension Diagnosed in 2019 and she follows up with Dr. Anderson and cardiology. Surgical History Status post conization of cervix Office LEEP procedure performed by Dr. Zelaya in 2005 for MARY-2 on Pap smear. 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 Status post knee surgery 2018-open knee surgery for torn ACL Status post left breast lumpectomy Patient reports having had 3 lumpectomies of her left breast in 1999, 2007 and 2009 for benign lesions. Family History Mother Hypertension Heart disease Grandmother Hypertension maternal and paternal Breast cancer maternal, diagnosed at age 43 Colon cancer maternal, diagnosed at age 63 Father Hypertension Grandfather Hypertension maternal and paternal Heart disease maternal Denies family history of Ovarian cancer Diabetes Uterine cancer Thyroid disease Stroke Social History Smoking and tobacco/nicotine status: unknown if used tobacco/nicotine Second hand smoke exposure: Yes Alcohol intake: former Substance/Drug Use: former Date of last use: 03/12/2023 Former substance use details: Marijuana Lives independently: Yes Housing: House Marital status: Single Number of children: 0 service: No Current occupational status: disabled Current gender identity: Female Special tereza needs: No Agree to transfusion: Yes Physical Exam Neuro: ANGEL COMA SCALE: document GCS findings Angel coma scale total score: 15 Course Vital Signs: Vital signs: Vital Signs Temperature 98.8 F 08/11/24 04:49 Pulse Rate 81 08/11/24 08:35 Respiratory Rate 18 08/11/24 07:44 Blood Pressure 105/68 08/11/24 08:35 Pulse Oximetry 98 08/11/24 08:35 Oxygen Delivery Me thod Room Air 08/11/24 07:44 MDM - Seizure MDM Narrative Medical decision making narrative: Known seizure disorder in this patient. Seems to have recovered. She did lose control of bladder function. Vitals are stable here. Mental status is essentially back to normal. Her neurological exam is nonfocal. Laboratories pending. Patient checked out to the oncoming physician at shift change This patient rested comfortably during the rest of her stay. Her workup was unremarkable. She did have 1 further episode where she told the nurse her body felt like Jell-O and she went limp. This was different from the episode that I witnessed when I first assumed care of her where she was shaking in her upper extremities and doing a unusual variation of lipsmacking. Neither time did she have much of a postictal phase afterward. She felt comfortable going home. We discussed the negative workup and she did tell me that she understands this is a stress reaction from her PTSD. She tells me that over a year ago her father shot himself and since then she has had these problems. She has home assistance of some kind scheduled to start tomorrow. She felt comfortable going home. She does not drive. She has a neighbor who helps her and she will call someone to bring her home today. Lab Data 08/11/24 05:24 08/11/24 05:24 Labs: Radiology Impressions Head CT 08/11/24 05:12 IMPRESSION: No acute intracranial abnormality. Laboratory Results WBC 5.10 10^3/uL (3.29-11.43) 08/11/24 05:24 RBC 4.52 10^6/uL (3.85-5.65) 08/11/24 05:24 Hgb 12.80 g/dL (11.27-16.99) 08/11/24 05:24 Hct 41.3 % (36-47) 08/11/24 05:24 MCV 91.4 fl (85-98) 08/11/24 05:24 MCH 28.3 pg (27-33) 08/11/24 05:24 MCHC 31.0 g/dL (30-55) 08/11/24 05:24 RDW 13.2 % (12.1-15.1) 08/11/24 05:24 Plt Count 284 10^3/cmm (157-399) 08/11/24 05:24 MPV 10.8 fL (7.4-10.4) H 08/11/24 05:24 Neut % (Auto) 53.0 % 08/11/24 05:24 Lymph % (Auto) 32.9 % 08/11/24 05:24 [place] % (Auto) 10.0 % 08/11/24 05:24 Eos % (Auto) 3.7 % 08/11/24 05:24 Baso % (Auto) 0.2 % 08/11/24 05:24 Neut # (Auto) 2.70 10^3/uL (1.8-7.7) 08/11/24 05:24 Lymph # (Auto) 1.7 10^3/uL (0.8-4.8) 08/11/24 05:24 [place] # (Auto) 0.5 10^3/uL (0.2-0.9) 08/11/24 05:24 Eos # (Auto) 0.2 10^3/uL (0.0-0.8) 08/11/24 05:24 Baso # (Auto) 0.0 10^3/uL (0.0-0.1) 08/11/24 05:24 Nucleated RBC % (auto) 0 % 08/11/24 05:24 Nucleated RBCs # 0.0 /100WBC 08/11/24 05:24 Sodium 141 mmol/L (136-145) 08/11/24 05:24 Potassium 3.7 mmol/L (3.5-5.1) 08/11/24 05:24 Chloride 103 mmol/L (98-107) 08/11/24 05:24 Carbon Dioxide 27 mmol/L (22-29) 08/11/24 05:24 Anion Gap 14.7 (5-19) 08/11/24 05:24 BUN 16 mg/dL (6-20) 08/11/24 05:24 Creatinine 1.0 mg/dL (0.5-0.9) H 08/11/24 05:24 GFR Calculation 59.4 mL/min (90-130) L 08/11/24 05:24 Glucose 122 mg/dL (65-115) H 08/11/24 05:24 Calculated Osmolality 294 mOsm/kg (285-295) 08/11/24 05:24 Lactic Acid 1.4 mmol/L (0.5-2.2) 08/11/24 05:24 Calcium 9.4 mg/dL (8.5-10.5) 08/11/24 05:24 Phosphorus 3.2 mg/dL (2.5-4.5) 08/11/24 05:24 Magnesium 1.8 mg/dL (1.7-2.3) 08/11/24 05:24 Total Bilirubin 0.2 mg/dL (0.15-1.2) 08/11/24 05:24 AST 26 U/L (0-32) 08/11/24 05:24 ALT 37 U/L (0-33) H 08/11/24 05:24 Alkaline Phosphatase 47 U/L (35-105) 08/11/24 05:24 Creatine Kinase 65 U/L (26-192) 08/11/24 05:24 Total Protein 6.9 g/dL (6.6-8.7) 08/11/24 05:24 Albumin 4.2 g/dL (3.5-5.2) 08/11/24 05:24 Globulin 2.7 g/dL (1.3-4.6) 08/11/24 05:24 HCG, Qual Negative (Negative) 08/11/24 05:24 Ethyl Alcohol < 10 mg/dL (0-10) 08/11/24 05:24 All radiology interpretation(s) finalized by discharge Discharge Plan Discharge Patient Disposition: Home Clinical Impression: Generalized seizure, Functional neurological symptom disorder with abnormal movement Condition: Stable Prescriptions: No Action desipramine 100 mg tablet 100 mg PO DAILY quetiapine 300 mg tablet 300 mg PO QPM oxcarbazepine 300 mg tablet 300 mg PO DAILY metformin 500 mg tablet extended release 24 hr 1,000 mg PO BID Qty: 120 3RF aripiprazole [Abilify] 5 mg tablet 5 mg PO DAILY (DME) Blood Glucose Test Strip See Rx Instructions .Route Qty: 100 3RF Rx Instructions: As directed; pt to test 1 x day and prn hypoglycemia omeprazole 40 mg capsule,delayed release(DR/EC) 40 mg PO DAILY Qty: 30 3RF potassium chloride 20 mEq tablet,ER particles/crystals 20 meq PO DAILY Qty: 30 3RF fenofibrate 160 mg tablet 160 mg PO DAILY Qty: 30 3RF atorvastatin 40 mg tablet 40 mg PO DAILY Qty: 30 5RF levetiracetam 500 mg tablet 1,000 mg PO BID Qty: 120 2RF alprazolam [Xanax] 2 mg Tablet 2 mg PO TID PRN (Reason: Anxiety) cyanocobalamin (vitamin B-12) 1,000 mcg tablet 1,000 mcg PO DAILY (DME) lancet-gluc spbgf-ycfokd-ruapv Kit See Rx Instructions .Route Qty: 1 0RF Rx Instructions: As directed (DME) blood-glucose meter [Blood Glucose Monitoring] Kit See Rx Instructions .Route Qty: 1 0RF Rx Instructions: As directed (DME) Blood Glucose Test Strip See Rx Instructions .Route Qty: 50 0RF Rx Instructions: As directed ramelteon 8 mg tablet 8 mg PO QPM Eliquis 5 mg tablet 5 mg PO BID metoprolol tartrate 100 mg tablet 100 mg PO BID Rx Instructions: TAKE ONE TABLET BY MOUTH TWICE DAILY isosorbide dinitrate 20 mg tablet 20 mg PO BID Rx Instructions: TAKE ONE TABLET BY MOUTH TWICE DAILY ferrous sulfate [FeroSul] 325 mg (65 mg iron) tablet 325 mg PO QAM Rx Instructions: TAKE ONE TABLET BY MOUTH EVERY MORNING lisinopril 2.5 mg tablet 2.5 mg PO DAILY Ozempic 1 mg/dose (4 mg/3 mL) pen injector 1 mg SUBCUT Q7D desvenlafaxine succinate [Pristiq] 100 mg tablet extended release 24 hr 100 mg PO QAM Discharge Orders: Discharge ED (Routine); Ordered 08/11/24 Ordered By: Fiona Rodriguez Referrals: Pham Jackman MD [Physician] - 4-7 days Discharge Diet: Advance as tolerated Discharge Activity: Limit activity as instructed Patient Instructions: Recurrent Seizures in Adults (ED), Opioid Safety, Pain Management Activity Restrictions/Additional Instructions: Return for repeated episodes of seizure, worsening mental status, problems with weakness, speech, etc. Call your doctor on Monday for a follow-up appointment. Let your neurologist know that you were seen here this weekend for a seizure on Monday as well. Print Language: Cameroonian Coding Level of Care Code ED Vat Skimmer for Marci Helms
[2024-08-11 05:40] LABS: Basophils % 0.2 %; Eosinophils # 0.2 10^3/uL (0.0-0.8); Eosinophils % 3.7 %; Hematocrit 41.3 % (36-47); Lymphocytes # 1.7 10^3/uL (0.8-4.8); Lymphocytes % 32.9 %; Mean Corpuscular Hemoglobin 28.3 pg (27-33); Mean Corpuscular Volume 91.4 fl (85-98); Mean Platelet Volume 10.8 fL (7.4-10.4); Monocytes # 0.5 10^3/uL (0.2-0.9); Nucleated Red Blood Cells % 0 %; Platelet Count 284 10^3/cmm (157-399); Red Blood Count 4.52 10^6/uL (3.85-5.65); Red Cell Distribution Width 13.2 % (12.1-15.1)
--- NOTE | 2024-08-11 06:04 | ECG_ITS ---
[facility] 2024-08[facility]11 Pat Name: Heladio Branch Department: Room: Gender: Female Foreclosure Field Inspector: : 1975 Requested By: John Bernard Order Number: [id number] Adalid MD: TAMI CONLEY Measurements Intervals [place] Rate: 85 P: 37 [place]: 167 QRS: 12 QRSD: 106 T: 59 QT: 381 QTc: 453 Interpretive Statements SINUS RHYTHM Compared to ECG 06/21/2024 14:41:12 No significant changes Electronically Signed On 08-13-2024 23:38:58 SHIP RIGGER APPRENTICE by TAMI CONLEY [email or web address] [id number]
[2024-08-11 06:08] VITALS: BP 121/80; PULSE 86; RESP 16; O2SAT 97
[2024-08-11 06:09] LABS: HCG, Serum Qual Negative (Negative)
[2024-08-11 06:16] LABS: Alanine Aminotransferase 37 U/L (0-33); Albumin Level 4.2 g/dL (3.5-5.2); Alkaline Phosphatase 47 U/L (35-105); Anion Gap 14.7 (5-19); Aspartate Amino Transferase 26 U/L (0-32); Carbon Dioxide 27 mmol/L (22-29); Chloride 103 mmol/L (98-107); Creatine Phosphokinase 65 U/L (26-192); Globulin 2.7 g/dL (1.3-4.6); Glomerular Filtration Rate 59.4 mL/min (90-130); Glucose 122 mg/dL (65-115); Phosphorus 3.2 mg/dL (2.5-4.5); Potassium 3.7 mmol/L (3.5-5.1); Sodium 141 mmol/L (136-145); Total Bilirubin 0.2 mg/dL (0.15-1.2); Total Protein 6.9 g/dL (6.6-8.7)
[2024-08-11 06:17] LABS: Lactic Sepsis W/Reflex 1.4 mmol/L (0.5-2.2)
[2024-08-11 06:19] LABS: Alcohol Level < 10 mg/dL (0-10)
[2024-08-11 06:31] LABS: Blood Urea Nitrogen 16 mg/dL (6-20); Calcium 9.4 mg/dL (8.5-10.5); Magnesium 1.8 mg/dL (1.7-2.3); Osmolality Calculated 294 mOsm/kg (285-295)
[2024-08-11 06:38] VITALS: BP 116/76; PULSE 77; RESP 16; O2SAT 97
[2024-08-11] MEDS: LORazepam 2 mg/mL INJ 1 mL 0.5 MG IVP (07:18)
[2024-08-11 07:44] VITALS: BP 103/63; PULSE 81; RESP 18; O2SAT 98
[2024-08-11 08:35] VITALS: BP 105/68; PULSE 81; O2SAT 98
[2024-08-13 06:25] LABS: Levetiracetam Immunoassy <2.0 mcg/mL (6.0-46.0)
== END 2024-08-11 08:36 | disposition home or self-care (01) ==
PROVIDERS: Emergency Medicine; Emergency Provider Emergency Medicine; PCP Family Medicine
DX: R56.9 Unspecified convulsions (principal); R29.2 Abnormal reflex; Z79.01 Long term (current) use of anticoagulants; J44.9 Chronic obstructive pulmonary disease, unspecified; E11.9 Type 2 diabetes mellitus without complications; Z86.73 Personal history of transient ischemic attack (TIA), and cerebral infarction without residual deficits; I10 Essential (primary) hypertension
CPT/HCPCS: 70450; 80053; 80177; 80307; 82550; 83605; 83735; 84100; 84703; 85025; 93005; 96374; 99285; J2060

== ENCOUNTER → 2024-08-21 08:21 | Outpatient (BNVA) | payer SELFPAY | PROVIDERS: PCP Family Medicine; Visit Provider Psychiatry & Neurology Psychiatry | DX: F60.3 Borderline personality disorder (principal); Z79.899 Other long term (current) drug therapy | CPT/HCPCS: 80061; 83036 ==

== ENCOUNTER 2024-09-02 13:19 | Emergency (ER) | payer MEDICARE, MEDICAID, SELFPAY ==
[2024-08-23 11:17] VITALS: BP 123/82; BMI 48.2
[2024-09-02 13:20] VITALS: BP 125/81; PULSE 80; RESP 18; TEMP 36.2; O2SAT 98; BMI 46.1
[2024-09-02 13:22] VITALS: BP 106/72; BP 123/72; BP 130/84; PULSE 81; PULSE 87
--- NOTE | 2024-09-02 13:22 | ECG_ITS ---
[employer] Test Date: 2024-09-02 Pat Name: Heladio Branch Department: Room: Gender: Female Hot Packer: : 1975 Requested By: Waldemar Osborne Order Number: [id number] Reading MD: TAMI CONLEY Measurements Intervals [place] Rate: 81 P: 44 [place]: 183 QRS: 12 QRSD: 100 T: 60 QT: 379 QTc: 440 Interpretive Statements SINUS RHYTHM LOW QRS VOLTAGE IN PRECORDIAL LEADS [QRS DEFLECTION < 1.0 mV IN CHEST LEADS] Compared to ECG 08/11/2024 06:04:11 Low QRS voltage now present Electronically Signed On 09-02-2024 18:06:50 CDT by TAMI CONLEY [email or web address] [id number]
--- NOTE | 2024-09-02 13:22 | XRR_ITS ---
PROCEDURE INFORMATION: Exam: XR Chest Exam date and time: 09/02/2024 1:53 PM Age: 49 years old Clinical indication: Cough and dyspnea; Additional info: Dyspnea/cough TECHNIQUE: Imaging protocol: Radiologic exam of the chest. Views: 1 view. COMPARISON: CR XR chest 1V portable [id number] 05/10/2024 12:59 AM FINDINGS: Lungs: No focal consolidation. Pleural spaces: No evidence of pneumothorax. No evidence of pleural effusion. Heart/Mediastinum: Cardiomediastinal silhouette is within normal limits. Bones/joints: No evidence of acute osseous abnormality. XR/XR chest 1V portable [id number] IMPRESSION: 1. No acute cardiopulmonary abnormality.
[2024-09-02 13:45] LABS: Basophils % 0.2 %; Eosinophils # 0.1 10^3/uL (0.0-0.8); Eosinophils % 2.1 %; Hematocrit 34.6 % (36-47); Lymphocytes # 1.5 10^3/uL (0.8-4.8); Lymphocytes % 24.5 %; Mean Corpuscular HGB Conc 31.5 g/dL (30-55); Mean Corpuscular Hemoglobin 28.6 pg (27-33); Mean Corpuscular Volume 90.8 fl (85-98); Mean Platelet Volume 10.9 fL (7.4-10.4); Monocytes # 0.6 10^3/uL (0.2-0.9); Monocytes % 9.5 %; Neutrophils # 3.89 10^3/uL (1.8-7.7); Neutrophils % 63.4 %; Nucleated Red Blood Cells % 0 %; Platelet Count 236 10^3/cmm (157-399); Red Blood Count 3.81 10^6/uL (3.85-5.65); Red Cell Distribution Width 13.6 % (12.1-15.1); White Blood Count 6.13 10^3/uL (3.29-11.43)
--- NOTE | 2024-09-02 14:01 | W.ED.SYNCOPE ---
HPI - Syncope General: Chief Complaint: Syncope Stated Complaint: syncopal episode Time Seen by Provider: 09/02/24 13:21 History of Present Illness: 49-year-old female has a history of functional neurologic events Frenchman going on for a while she had previously been on But it started tapering off she had an ER visit recently and it increased at. Reviewing her neurology visit notes there is extensive documentation that these are not true seizures and there had recommended tapering off of her Keppra. She had another episode last night she is also complaining of some swelling in her legs and difficulty with urination Associated symptoms: Deny abdominal pain, chest pain or fever(s) Related Data Home Medications ?Medication ?Instructions ?Recorded ?Confirmed alprazolam 2 mg tablet (Xanax) 2 mg PO TID PRN Anxiety 11/16/19 09/02/24 aripiprazole 5 mg tablet (Abilify) 5 mg PO DAILY 04/27/23 09/02/24 desvenlafaxine succinate 100 mg 100 mg PO QAM 05/16/23 09/02/24 tablet,extended release 24 hr (Pristiq) desipramine 100 mg tablet 100 mg PO DAILY 10/24/23 09/02/24 oxcarbazepine 300 mg tablet 300 mg PO DAILY 10/24/23 09/02/24 quetiapine 300 mg tablet 300 mg PO QPM 10/24/23 09/02/24 cyanocobalamin (vitamin B-12) 1,000 mcg PO DAILY 02/12/24 09/02/24 1,000 mcg tablet apixaban 5 mg tablet (Eliquis) 5 mg PO BID 06/21/24 09/02/24 ferrous sulfate 325 mg (65 mg 325 mg PO QAM 06/21/24 09/02/24 iron) tablet (FeroSul) isosorbide dinitrate 20 mg tablet 20 mg PO BID 06/21/24 09/02/24 metoprolol tartrate 100 mg tablet 100 mg PO BID 06/21/24 09/02/24 ramelteon 8 mg tablet 8 mg PO QPM 06/21/24 09/02/24 lisinopril 2.5 mg tablet 2.5 mg PO DAILY 08/11/24 09/02/24 semaglutide 1 mg/dose (4 mg/3 mL) 1 mg SUBCUT Q7D 08/11/24 09/02/24 subcutaneous pen injector (Ozempic) coenzyme Q10 100 mg capsule (Co 100 mg PO DAILY 09/02/24 09/02/24 Q-10) Previous Rx's ?Medication ?Instructions ?Recorded blood sugar diagnostic (Blood #100 ea 04/24/23 Glucose Test strips) blood sugar diagnostic (Blood #50 ea 02/15/24 Glucose Test strips) blood-glucose meter (Blood Glucose #1 ea 02/15/24 Monitoring kit) lancets-blood glucose test #1 ea 02/15/24 strips-pen needles with gauze kit atorvastatin 40 mg tablet 40 mg PO DAILY #30 tabs 03/07/24 fenofibrate 160 mg tablet 160 mg PO DAILY #30 tabs 03/07/24 levetiracetam 500 mg tablet 1,000 mg (2 x 500 mg) PO BID #120 03/07/24 tabs metformin 500 mg tablet,extended 1,000 mg (2 x 500 mg) PO BID #120 03/07/24 release 24 hr tabs omeprazole 40 mg capsule,delayed 40 mg PO DAILY #30 caps 03/07/24 release potassium chloride 20 mEq 20 meq PO DAILY #30 tabs 03/07/24 tablet,extended release(part/cryst) Allergies Allergy/AdvReac Type Severity Reaction Status Date / Time venom-wasp Allergy Severe ALGY-Anaphy Verified 08/21/24 10:05 laxis clonazepam (From Klonopin) Allergy Unknown Verified 08/21/24 10:05 Fish Containing Products Allergy anaphylaxis Verified 08/21/24 10:05 iodine Allergy ALGY-Anaphy Verified 08/21/24 10:05 laxis bupropion (From Wellbutrin) AdvReac Severe sucidal Verified 08/21/24 10:05 fluoxetine (From Prozac) AdvReac Severe sucidal Verified 08/21/24 10:05 topiramate (From Topamax) AdvReac Severe passing out Verified 08/21/24 10:05 venlafaxine (From Effexor) AdvReac Intermediate hives Verified 08/21/24 10:05 lamotrigine (From Lamictal) AdvReac Mild weight gain Verified 08/21/24 10:05 duloxetine (From Cymbalta) AdvReac Unknown Bumps Verified 08/21/24 10:05 inside mouth escitalopram (From Lexapro) AdvReac Unknown Made me Verified 08/21/24 10:05 psychotic sumatriptan AdvReac ADR-Depress Verified 08/21/24 10:05 ion Review of Systems Const: Denies: fever(s) or chills Card: Denies: chest pain Resp: Denies: dyspnea GI: Denies: abdominal pain : Denies: dysuria, urinary frequency or urinary urgency Musc: Denies: neck pain or back pain Skin/Breast: Denies: rash PFSH ED PFSH: Medical History Psychiatric care Seizure disorder PTSD (post-traumatic stress disorder) Type 2 diabetes mellitus Anxiety Depression with suicidal ideation COPD (chronic obstructive pulmonary disease) Gastro-esophageal reflux disease without esophagitis Controlled with medication. Chronic constipation Controlled with medications followed by her primary care provider H/O deep venous thrombosis Reports having a DVT in 2019 and states her warfarin dose was increased after this. She follows up with Dr. Crespo -had second DVT in 11/2019 and was taken off warfarin and is now on eliquis Personal history of pulmonary embolism (2013) Depression Diagnosed at the age of 23 and has been on medication since then. She follows up with Dr. Benitez a psychiatrist and as well as therapy in [place]. She currently denies suicidal/homicidal ideation. Obstructive sleep apnea TIA (transient ischemic attack) Reports having had a TIA in 2019. Denies any neurological deficits. Followed by her primary care provider. Essential (primary) hypertension Diagnosed in 2019 and she follows up with Dr. Anderson and cardiology. Surgical History Status post conization of cervix Office LEEP procedure performed by Dr. Zelaya in 2005 for MARY-2 on Pap smear. 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 Status post knee surgery 2018-open knee surgery for torn ACL Status post left breast lumpectomy Patient reports having had 3 lumpectomies of her left breast in 1999, 2007 and 2009 for benign lesions. Family History Mother Hypertension Heart disease Grandmother Hypertension maternal and paternal Breast cancer maternal, diagnosed at age 43 Colon cancer maternal, diagnosed at age 63 Father Hypertension Grandfather Hypertension maternal and paternal Heart disease maternal Denies family history of Ovarian cancer Diabetes Uterine cancer Thyroid disease Stroke Social History (Updated 08/21/24 @ 10:02 by Jennifer Prakash RN) Smoking and tobacco/nicotine status: never used tobacco/nicotine Second hand smoke exposure: Yes Alcohol intake: former Substance/Drug Use: current Substance/Drug use frequency: few times a week Adopted: No Caregiver/support person: No Lives independently: Yes Household members: none Housing: Apartment Marital status: Single Number of children: 0 Number of grandchildren: 0 Highest education level completed: Bachelor's Degree Education level details: criminology, psycology and sociology service: No Current occupational status: disabled Current occupational exposures/hazards: No Pets and animals: Yes Pets & animals: dog(s) Leisure activites: music Sexually active: No Do you think of yourself as: Bisexual Current gender identity: Female Caridad/Taoism: Sikh Special caridad needs: No Agree to transfusion: Yes Female Reproductive History: Para: 0 Spontaneous abortions: No Physical Exam Const: COMMON NORMALS: no acute distress GENERAL APPEARANCE: cooperative and comfortable ORIENTATION/CONSCIOUSNESS: Yes awake, Yes oriented to person, Yes oriented to place and Yes oriented to time HENMT: COMMON NORMALS: normocephalic, atraumatic and hearing grossly normal bilaterally HEAD & SCALP: normocephalic and atraumatic Resp: COMMON NORMALS: normal respiratory effort, No retractions, No use of accessory muscles and clear to auscultation bilaterally AUSCULTATION: clear to auscultation bilaterally Cardio: COMMON NORMALS: regular rate, regular rhythm and No murmurs present (Cardio) RATE: regular rate RHYTHM: regular rhythm GI: COMMON NORMALS: Soft to palpation and No hepatosplenomegaly present AUSCULTATION: Yes normoactive bowel sounds PALPATION: Yes Soft to palpation, No Tenderness to palpation present (GI), No Guarding due to palpation present (GI) and Yes No hepatosplenomegaly present Extremity: COMMON NORMALS: normal to inspection, capillary refill normal, no clubbing, cyanosis or edema, no calf tenderness and no pedal edema Neuro: SENSORIUM/ORIENTATION: Yes oriented to person, Yes oriented to place and Yes oriented to time Skin: COMMON NORMALS: no rashes or lesions noted GENERAL SKIN EXAM: no rashes or lesions noted Course Vital Signs: Vital signs: Vital Signs Temperature 97.1 F L 09/02/24 13:20 Pulse Rate 78 09/02/24 16:03 Respiratory Rate 27 H 09/02/24 15:00 Blood Pressure 126/81 09/02/24 16:03 Pulse Oximetry 97 09/02/24 16:03 Oxygen Delivery Me thod Room Air 09/02/24 13:20 MDM - Syncope Medical Decision Making Chart reviewed neurology notes state this disease or functional neurologic episodes and she does not need to be on the Keppra at the last ER visit the Keppra was restarted we will taper her back off of it. Discharge her home she is concerned about her bladder suspect she is having some mixed stress and urge incontinence. We did do a Corona she only had a little over 100 mL in her bladder there is no signs of infection. Will have her follow-up with her primary care doctor regarding this. She should contact neurology for an appointment and follow-up regarding the Keppra. Lab Data 09/02/24 13:34 09/02/24 13:34 Radiology Impressions Chest X-Ray 09/02/24 13:22 IMPRESSION: 1. No acute cardiopulmonary abnormality. Laboratory Results WBC 6.13 10^3/uL (3.29-11.43) 09/02/24 13:34 RBC 3.81 10^6/uL (3.85-5.65) L 09/02/24 13:34 Hgb 10.90 g/dL (11.27-16.99) L 09/02/24 13:34 Hct 34.6 % (36-47) L 09/02/24 13:34 MCV 90.8 fl (85-98) 09/02/24 13:34 MCH 28.6 pg (27-33) 09/02/24 13:34 MCHC 31.5 g/dL (30-55) 09/02/24 13:34 RDW 13.6 % (12.1-15.1) 09/02/24 13:34 Plt Count 236 10^3/cmm (157-399) 09/02/24 13:34 MPV 10.9 fL (7.4-10.4) H 09/02/24 13:34 Neut % (Auto) 63.4 % 09/02/24 13:34 Lymph % (Auto) 24.5 % 09/02/24 13:34 [place] % (Auto) 9.5 % 09/02/24 13:34 Eos % (Auto) 2.1 % 09/02/24 13:34 Baso % (Auto) 0.2 % 09/02/24 13:34 Neut # (Auto) 3.89 10^3/uL (1.8-7.7) 09/02/24 13:34 Lymph # (Auto) 1.5 10^3/uL (0.8-4.8) 09/02/24 13:34 [place] # (Auto) 0.6 10^3/uL (0.2-0.9) 09/02/24 13:34 Eos # (Auto) 0.1 10^3/uL (0.0-0.8) 09/02/24 13:34 Baso # (Auto) 0.0 10^3/uL (0.0-0.1) 09/02/24 13:34 Nucleated RBC % (auto) 0 % 09/02/24 13:34 Nucleated RBCs # 0.0 /100WBC 09/02/24 13:34 Sodium 136 mmol/L (136-145) 09/02/24 13:34 Potassium 4.1 mmol/L (3.5-5.1) 09/02/24 13:34 Chloride 102 mmol/L (98-107) 09/02/24 13:34 Carbon Dioxide 26 mmol/L (22-29) 09/02/24 13:34 Anion Gap 12.1 (5-19) 09/02/24 13:34 BUN 12 mg/dL (6-20) 09/02/24 13:34 Creatinine 1.0 mg/dL (0.5-0.9) H 09/02/24 13:34 GFR Calculation 59.4 mL/min (90-130) L 09/02/24 13:34 Glucose 116 mg/dL (65-115) H 09/02/24 13:34 Calculated Osmolality 283 mOsm/kg (285-295) L 09/02/24 13:34 Calcium 8.9 mg/dL (8.5-10.5) 09/02/24 13:34 Total Bilirubin 0.2 mg/dL (0.15-1.2) 09/02/24 13:34 AST 19 U/L (0-32) 09/02/24 13:34 ALT 28 U/L (0-33) 09/02/24 13:34 Alkaline Phosphatase 36 U/L (35-105) 09/02/24 13:34 Total Protein 6.2 g/dL (6.6-8.7) L 09/02/24 13:34 Albumin 3.6 g/dL (3.5-5.2) 09/02/24 13:34 Globulin 2.6 g/dL (1.3-4.6) 09/02/24 13:34 Urine Color Yellow (Yellow) 09/02/24 14:58 Urine Appearance Clear (CLEAR) 09/02/24 14:58 Urine pH 5.5 (5-7) 09/02/24 14:58 Ur Specific [place] 1.020 (1.005-1.030) 09/02/24 14:58 Urine Protein Negative (Negative) 09/02/24 14:58 Urine Glucose (UA) Negative (Normal) 09/02/24 14:58 Urine Ketones Negative (Negative) 09/02/24 14:58 Urine Blood Non-haemolysed trace (Negative) 09/02/24 14:58 Urine Nitrate Negative (Negative) 09/02/24 14:58 Urine Bilirubin Negative (Negative) 09/02/24 14:58 Urine Urobilinogen 1.0 mg/dL (Negative) 09/02/24 14:58 Ur Leukocyte Esterase Negative (Negative) 09/02/24 14:58 Urine RBC 0-2 /hpf (0-2) 09/02/24 14:58 Urine WBC 0-5 /hpf (0-5) 09/02/24 14:58 Ur Squamous Epith Cells 0-5 /hpf (0-5) 09/02/24 14:58 Amorphous Sediment Not Reportable 09/02/24 14:58 Urine Bacteria None seen /hpf (NONE) 09/02/24 14:58 Hyaline Casts 0.81 /lpf 09/02/24 14:58 All radiology interpretation(s) finalized by discharge Discharge Plan Discharge Patient Disposition: Home Clinical Impression: Functional neurological symptom disorder with abnormal movement, Anemia Condition: Stable Prescriptions: No Action desipramine 100 mg tablet 100 mg PO DAILY quetiapine 300 mg tablet 300 mg PO QPM oxcarbazepine 300 mg tablet 300 mg PO DAILY metformin 500 mg tablet extended release 24 hr 1,000 mg PO BID Qty: 120 3RF aripiprazole [Abilify] 5 mg tablet 5 mg PO DAILY (DME) Blood Glucose Test Strip See Rx Instructions .Route Qty: 100 3RF Rx Instructions: As directed; pt to test 1 x day and prn hypoglycemia omeprazole 40 mg capsule,delayed release(DR/EC) 40 mg PO DAILY Qty: 30 3RF potassium chloride 20 mEq tablet,ER particles/crystals 20 meq PO DAILY Qty: 30 3RF fenofibrate 160 mg tablet 160 mg PO DAILY Qty: 30 3RF atorvastatin 40 mg tablet 40 mg PO DAILY Qty: 30 5RF levetiracetam 500 mg tablet 1,000 mg PO BID Qty: 120 2RF alprazolam [Xanax] 2 mg Tablet 2 mg PO TID PRN (Reason: Anxiety) cyanocobalamin (vitamin B-12) 1,000 mcg tablet 1,000 mcg PO DAILY (DME) lancet-gluc tfrrh-fxeidf-pvtwl Kit See Rx Instructions .Route Qty: 1 0RF Rx Instructions: As directed (DME) blood-glucose meter [Blood Glucose Monitoring] Kit See Rx Instructions .Route Qty: 1 0RF Rx Instructions: As directed (DME) Blood Glucose Test Strip See Rx Instructions .Route Qty: 50 0RF Rx Instructions: As directed ramelteon 8 mg tablet 8 mg PO QPM Eliquis 5 mg tablet 5 mg PO BID metoprolol tartrate 100 mg tablet 100 mg PO BID isosorbide dinitrate 20 mg tablet 20 mg PO BID ferrous sulfate [FeroSul] 325 mg (65 mg iron) tablet 325 mg PO QAM lisinopril 2.5 mg tablet 2.5 mg PO DAILY Ozempic 1 mg/dose (4 mg/3 mL) pen injector 1 mg SUBCUT Q7D Rx Instructions: Fridays coenzyme Q10 [Co Q-10] 100 mg Capsule 100 mg PO DAILY desvenlafaxine succinate [Pristiq] 100 mg tablet extended release 24 hr 100 mg PO QAM Discharge Orders: Discharge ED (Routine); Ordered 09/02/24 Ordered By: Waldemar Augustine Referrals: Dionna Valdivia DO [Primary Care Provider] - Patient Instructions: Opioid Safety, Pain Management Activity Restrictions/Additional Instructions: Thank you for choosing [facility] for your healthcare needs today. It is very important that you follow up as instructed or that you return to the Emergency Department should you have concerns or if your condition changes or worsens in any way. You were seen in the emergency room after a functional neurologic episode. Will discharge you home recommend tapering down on your Keppra decreased to 500 mg twice a day for 10 days then 500 mg a day for 7 days then stop. You should call and make a follow-up appointment with neurology as soon as you are able. You has moderate anemia which has been chronic you should follow this up with your primary care doctor. Print Language: Kyrgyz Coding Level of Care Code ED [place] Department Operator for Marci Helms
[2024-09-02 14:05] LABS: Alanine Aminotransferase 28 U/L (0-33); Albumin Level 3.6 g/dL (3.5-5.2); Alkaline Phosphatase 36 U/L (35-105); Anion Gap 12.1 (5-19); Aspartate Amino Transferase 19 U/L (0-32); Blood Urea Nitrogen 12 mg/dL (6-20); Calcium 8.9 mg/dL (8.5-10.5); Carbon Dioxide 26 mmol/L (22-29); Chloride 102 mmol/L (98-107); Globulin 2.6 g/dL (1.3-4.6); Glomerular Filtration Rate 59.4 mL/min (90-130); Glucose 116 mg/dL (65-115); Osmolality Calculated 283 mOsm/kg (285-295); Potassium 4.1 mmol/L (3.5-5.1); Sodium 136 mmol/L (136-145); Total Bilirubin 0.2 mg/dL (0.15-1.2); Total Protein 6.2 g/dL (6.6-8.7)
[2024-09-02 14:25] VITALS: BP 121/75; PULSE 77; RESP 26; O2SAT 97
[2024-09-02 15:00] VITALS: BP 115/75; PULSE 71; RESP 27; O2SAT 97
[2024-09-02 15:07] LABS: Bilirubin Urine Negative (Negative); Blood Urine Non-haemolysed trace (Negative); Glucose Urine UA Negative (Normal); Ketones Urine Negative (Negative); Leukocyte Esterase Urine Negative (Negative); Nitrate Urine Negative (Negative); Protein Urine Negative (Negative); Urine Appearance Clear (CLEAR); Urine Color Yellow (Yellow); pH Urine 5.5 (5-7)
[2024-09-02 15:12] LABS: Add Urine Microscopic? YES; Bacteria Urine None Seen /hpf; Hyaline Casts Urine 0.81 /lpf; RBC Urine 0-2 /hpf (0-2); Squamous Epithelial Cell Urine 0-5 /hpf (0-5); WBC Urine 0-5 /hpf (0-5)
[2024-09-02 16:03] VITALS: BP 126/81; PULSE 78; O2SAT 97
--- NOTE | 2024-09-02 17:41 | DCPLANNER ---
messaged neuro for er f/u
== END 2024-09-02 16:04 | disposition home or self-care (01) ==
PROVIDERS: Emergency Provider Family Medicine; PCP Family Medicine
DX: F44.4 Conversion disorder with motor symptom or deficit (principal); R29.2 Abnormal reflex; D64.9 Anemia, unspecified; Z79.01 Long term (current) use of anticoagulants; Z86.73 Personal history of transient ischemic attack (TIA), and cerebral infarction without residual deficits; J44.9 Chronic obstructive pulmonary disease, unspecified; I10 Essential (primary) hypertension
CPT/HCPCS: 36415; 71045; 80053; 81001; 85025; 93005; 99285

== ENCOUNTER 2024-09-13 18:45 | Emergency (ER) | payer MEDICARE, MEDICAID, SELFPAY ==
[2024-08-23 11:17] VITALS: BP 123/82; BMI 48.2
[2024-09-13] VITALS (16 sets, daily range): BP systolic 106–169; BP diastolic 82–115; PULSE 74–101; RESP 16–27; O2SAT 93–98; BMI 41.1
--- NOTE | 2024-09-13 18:50 | XRR_ITS ---
PROCEDURE INFORMATION: Exam: XR Chest Exam date and time: 09/13/2024 7:05 PM Age: 49 years old Clinical indication: Reported seizure activity per family. Patient unresponsive to any stimulus upon exam. ; Additional info: Seizure, unresponsive TECHNIQUE: Imaging protocol: Radiologic exam of the chest. Views: 1 view. COMPARISON: CR XR chest 1V portable [id number] 09/02/2024 1:53 PM FINDINGS: Lungs: Unremarkable. No consolidation. Pleural spaces: Unremarkable. No pleural effusion. No pneumothorax. Heart/Mediastinum: Enlarged cardiomediastinal silhouette, likely accentuated by technique. Bones/joints: Unremarkable. XR/XR chest 1V portable [id number] IMPRESSION: No acute radiographic findings.
--- NOTE | 2024-09-13 18:50 | CTR_ITS ---
PROCEDURE INFORMATION: Exam: CT Head Without Contrast Exam date and time: 09/13/2024 6:57 PM Age: 49 years old Clinical indication: Reported seizure activity per family. History of seizure disorder. Patient unresponsive to any stimulus upon exam. ; Additional info: Seizure, unresponsive TECHNIQUE: Imaging protocol: Computed tomography of the head without contrast. Axial, coronal and sagittal reformatted images were created and reviewed. Radiation optimization: All CT scans at this facility use at least one of these dose optimization techniques: automated exposure control; mA and/or kV adjustment per patient size (includes targeted exams where dose is matched to clinical indication); or iterative reconstruction. COMPARISON: CT head wo con* [id number] 08/11/2024 5:30 AM RADIATION DOSE METRICS: Total DLP (mGy-cm): 1105.38 FINDINGS: Brain: No CT evidence of acute intracranial hemorrhage or acute territorial infarction. No significant mass effect or midline shift. Basal cisterns patent. Cerebral ventricles: Normal in size and configuration. Paranasal sinuses: Mild polypoid left maxillary sinus mucosal thickening. No air-fluid levels. Mastoid air cells: Grossly unremarkable. Bones: Unremarkable. No acute fracture. Soft tissues: Grossly unremarkable. CT/CT head wo con* [id number] IMPRESSION: 1. No CT evidence of acute intracranial pathology. 2. Additional findings, as above.
--- NOTE | 2024-09-13 18:51 | ECG_ITS ---
[facility] Test Date: 2024-09-13 Pat Name: Heladio Branch Department: Room: Gender: Female Visiting Teacher: : 1975 Requested By: Boy Guerrero Order Number: [id number] Reading MD: Measurements Intervals [place] Rate: 79 P: 45 [place]: 178 QRS: 27 QRSD: 110 T: 53 QT: 386 QTc: 443 Interpretive Statements SINUS RHYTHM [email or web address] [id number]
--- NOTE | 2024-09-13 18:52 | W.ED.SEIZURE ---
HPI - Seizure General: Chief Complaint: Seizure Stated Complaint: seizure Time Seen by Provider: 09/13/24 18:49 Limitations: altered mental status History of Present Illness: HPI Narrative: Patient arrived by private vehicle and unresponsive state. Family noted patient to have seizures and passed out the car would not respond. Patient was brought in from the vehicle by staff. Patient does have a history of seizures last functional neurologic disorder. Patient is not able to provide any history at this time. Due to altered mental status. Seizure History: Yes Treatments prior to arrival: none Related Data Home Medications ?Medication ?Instructions ?Recorded ?Confirmed alprazolam 2 mg tablet (Xanax) 2 mg PO TID PRN Anxiety 11/16/19 09/02/24 aripiprazole 5 mg tablet (Abilify) 5 mg PO DAILY 04/27/23 09/02/24 desvenlafaxine succinate 100 mg 100 mg PO QAM 05/16/23 09/02/24 tablet,extended release 24 hr (Pristiq) desipramine 100 mg tablet 100 mg PO DAILY 10/24/23 09/02/24 oxcarbazepine 300 mg tablet 300 mg PO DAILY 10/24/23 09/02/24 quetiapine 300 mg tablet 300 mg PO QPM 10/24/23 09/02/24 cyanocobalamin (vitamin B-12) 1,000 mcg PO DAILY 02/12/24 09/02/24 1,000 mcg tablet apixaban 5 mg tablet (Eliquis) 5 mg PO BID 06/21/24 09/02/24 ferrous sulfate 325 mg (65 mg 325 mg PO QAM 06/21/24 09/02/24 iron) tablet (FeroSul) isosorbide dinitrate 20 mg tablet 20 mg PO BID 06/21/24 09/02/24 metoprolol tartrate 100 mg tablet 100 mg PO BID 06/21/24 09/02/24 ramelteon 8 mg tablet 8 mg PO QPM 06/21/24 09/02/24 lisinopril 2.5 mg tablet 2.5 mg PO DAILY 08/11/24 09/02/24 semaglutide 1 mg/dose (4 mg/3 mL) 1 mg SUBCUT Q7D 08/11/24 09/02/24 subcutaneous pen injector (Ozempic) coenzyme Q10 100 mg capsule (Co 100 mg PO DAILY 09/02/24 09/02/24 Q-10) Previous Rx's ?Medication ?Instructions ?Recorded blood sugar diagnostic (Blood #100 ea 04/24/23 Glucose Test strips) blood sugar diagnostic (Blood #50 ea 02/15/24 Glucose Test strips) blood-glucose meter (Blood Glucose #1 ea 02/15/24 Monitoring kit) lancets-blood glucose test #1 ea 02/15/24 strips-pen needles with gauze kit atorvastatin 40 mg tablet 40 mg PO DAILY #30 tabs 03/07/24 fenofibrate 160 mg tablet 160 mg PO DAILY #30 tabs 03/07/24 levetiracetam 500 mg tablet 1,000 mg (2 x 500 mg) PO BID #120 03/07/24 tabs metformin 500 mg tablet,extended 1,000 mg (2 x 500 mg) PO BID #120 03/07/24 release 24 hr tabs omeprazole 40 mg capsule,delayed 40 mg PO DAILY #30 caps 03/07/24 release potassium chloride 20 mEq 20 meq PO DAILY #30 tabs 03/07/24 tablet,extended release(part/cryst) Allergies Allergy/AdvReac Type Severity Reaction Status Date / Time venom-wasp Allergy Severe ALGY-Anaphy Verified 08/21/24 10:05 laxis clonazepam (From Klonopin) Allergy Unknown Verified 08/21/24 10:05 Fish Containing Products Allergy anaphylaxis Verified 08/21/24 10:05 iodine Allergy ALGY-Anaphy Verified 08/21/24 10:05 laxis bupropion (From Wellbutrin) AdvReac Severe sucidal Verified 08/21/24 10:05 fluoxetine (From Prozac) AdvReac Severe sucidal Verified 08/21/24 10:05 topiramate (From Topamax) AdvReac Severe passing out Verified 08/21/24 10:05 venlafaxine (From Effexor) AdvReac Intermediate hives Verified 08/21/24 10:05 lamotrigine (From Lamictal) AdvReac Mild weight gain Verified 08/21/24 10:05 duloxetine (From Cymbalta) AdvReac Unknown Bumps Verified 08/21/24 10:05 inside mouth escitalopram (From Lexapro) AdvReac Unknown Made me Verified 08/21/24 10:05 psychotic sumatriptan AdvReac ADR-Depress Verified 08/21/24 10:05 ion Review of Systems General: Reports: ROS unobtainable due to mental status PFSH ED PFSH: Medical History Psychiatric care Seizure disorder PTSD (post-traumatic stress disorder) Type 2 diabetes mellitus Anxiety Depression with suicidal ideation COPD (chronic obstructive pulmonary disease) Gastro-esophageal reflux disease without esophagitis Controlled with medication. Chronic constipation Controlled with medications followed by her primary care provider H/O deep venous thrombosis Reports having a DVT in 2019 and states her warfarin dose was increased after this. She follows up with Dr. Crespo -had second DVT in 11/2019 and was taken off warfarin and is now on eliquis Personal history of pulmonary embolism (2013) Depression Diagnosed at the age of 23 and has been on medication since then. She follows up with Dr. Benitez a psychiatrist and as well as therapy in [place]. She currently denies suicidal/homicidal ideation. Obstructive sleep apnea TIA (transient ischemic attack) Reports having had a TIA in 2019. Denies any neurological deficits. Followed by her primary care provider. Essential (primary) hypertension Diagnosed in 2019 and she follows up with Dr. Anderson and cardiology. Surgical History Status post conization of cervix Office LEEP procedure performed by Dr. Zelaya in 2005 for MARY-2 on Pap smear. 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 Status post knee surgery 2018-open knee surgery for torn ACL Status post left breast lumpectomy Patient reports having had 3 lumpectomies of her left breast in 1999, 2007 and 2009 for benign lesions. Family History Mother Hypertension Heart disease Grandmother Hypertension maternal and paternal Breast cancer maternal, diagnosed at age 43 Colon cancer maternal, diagnosed at age 63 Father Hypertension Grandfather Hypertension maternal and paternal Heart disease maternal Denies family history of Ovarian cancer Diabetes Uterine cancer Thyroid disease Stroke Social History Smoking and tobacco/nicotine status: never used tobacco/nicotine Second hand smoke exposure: Yes Alcohol intake: former Substance/Drug Use: current Substance/Drug use frequency: few times a week Adopted: No Caregiver/support person: No Lives independently: Yes Household members: none Housing: Apartment Marital status: Single Number of children: 0 Number of grandchildren: 0 Highest education level completed: Bachelor's Degree Education level details: criminology, psycology and sociology service: No Current occupational status: disabled Current occupational exposures/hazards: No Pets and animals: Yes Pets & animals: dog(s) Leisure activites: music Sexually active: No Do you think of yourself as: Bisexual Current gender identity: Female Caridad/Quaker: Adventist Special caridad needs: No Agree to transfusion: Yes Female Reproductive History: Para: 0 Spontaneous abortions: No Physical Exam Const: COMMON NORMALS: average body habitus, healthy appearing and well nourished HENMT: COMMON NORMALS: normocephalic, atraumatic, external ears normal, Normal external nose present, moist oral mucous membranes and oropharynx normal HEAD & SCALP: normocephalic and atraumatic NOSE: Normal external nose present EXTERNAL EAR: Yes external ears normal Eye: COMMON NORMALS: Equal, round and reactive pupils present, conjunctivae normal and no scleral icterus CONJUNCTIVA: Yes conjunctivae normal PUPIL: Yes Equal, round and reactive pupils present Neck/C-Spine: COMMON NORMALS: full ROM, no lymphadenopathy, supple, no meningeal signs and no JVD Chest: COMMONS NORMALS: normal inspection of the chest and normal palpation of entire chest wall Resp: COMMON NORMALS: normal respiratory effort, No retractions, No use of accessory muscles and clear to auscultation bilaterally AUSCULTATION: clear to auscultation bilaterally Cardio: COMMON NORMALS: no JVD, regular rate, regular rhythm, S1 normal heart sound present, S2 normal heart sound present, No gallops present (Cardio), No clicks present (Cardio), No murmurs present (Cardio) and No rub (Cardio) RATE: regular rate RHYTHM: regular rhythm HEART SOUNDS: S1 normal heart sound present and S2 normal heart sound present GI: COMMON NORMALS: Normal to inspection, nondistended, normoactive bowel sounds present, Soft to palpation, non-tender, No hepatosplenomegaly present and no masses PALPATION: Yes Soft to palpation and Yes No hepatosplenomegaly present Neuro: MENINGEAL SIGNS: Yes no meningeal signs Course Vital Signs: Vital signs: Vital Signs Pulse Rate 82 03/28/25 21:45 Respiratory Rate 27 H 09/13/24 22:00 Blood Pressure 169/113 09/13/24 21:45 Pulse Oximetry 97 09/13/24 22:00 Oxygen Delivery Me thod Room Air 09/13/24 18:48 MDM - Seizure MDM Narrative Medical decision making narrative: Lab work, chest x-ray, head CT, rule obtained, all essentially were unremarkable, eventually the patient's friend stopped by and she started talking to her moving all extremities. Patient be discharged home. Medical Records Attestation: I reviewed the patient's medical records. Lab Data Attestation: I reviewed the patient's lab results. 09/13/24 18:55 09/13/24 18:55 Labs: Radiology Impressions Chest X-Ray 09/13/24 18:50 IMPRESSION: No acute radiographic findings. Head CT 09/13/24 18:50 IMPRESSION: 1. No CT evidence of acute intracranial pathology. 2. Additional findings, as above. Laboratory Results WBC 5.07 10^3/uL (3.29-11.43) 09/13/24 18:55 RBC 4.48 10^6/uL (3.85-5.65) 09/13/24 18:55 Hgb 12.70 g/dL (11.27-16.99) 09/13/24 18:55 Hct 40.2 % (36-47) 09/13/24 18:55 MCV 89.7 fl (85-98) 09/13/24 18:55 MCH 28.3 pg (27-33) 09/13/24 18:55 MCHC 31.6 g/dL (30-55) 09/13/24 18:55 RDW 13.4 % (12.1-15.1) 09/13/24 18:55 Plt Count 323 10^3/cmm (157-399) 09/13/24 18:55 MPV 10.7 fL (7.4-10.4) H 09/13/24 18:55 Neut % (Auto) 51.9 % 09/13/24 18:55 Lymph % (Auto) 34.9 % 09/13/24 18:55 [place] % (Auto) 8.3 % 09/13/24 18:55 Eos % (Auto) 3.7 % 09/13/24 18:55 Baso % (Auto) 0.8 % 09/13/24 18:55 Neut # (Auto) 2.63 10^3/uL (1.8-7.7) 09/13/24 18:55 Lymph # (Auto) 1.8 10^3/uL (0.8-4.8) 09/13/24 18:55 [place] # (Auto) 0.4 10^3/uL (0.2-0.9) 09/13/24 18:55 Eos # (Auto) 0.2 10^3/uL (0.0-0.8) 09/13/24 18:55 Baso # (Auto) 0.0 10^3/uL (0.0-0.1) 09/13/24 18:55 Nucleated RBC % (auto) 0 % 09/13/24 18:55 Nucleated RBCs # 0.0 /100WBC 09/13/24 18:55 PT 13.40 SECONDS (12.1-14.9) 09/13/24 18:55 INR 0.95 (0.8-1.2) 09/13/24 18:55 Sodium 141 mmol/L (136-145) 09/13/24 18:55 Potassium 4.5 mmol/L (3.5-5.1) 09/13/24 18:55 Chloride 105 mmol/L (98-107) 09/13/24 18:55 Carbon Dioxide 22 mmol/L (22-29) 09/13/24 18:55 Anion Gap 18.5 (5-19) 09/13/24 18:55 BUN 11 mg/dL (6-20) 09/13/24 18:55 Creatinine 0.9 mg/dL (0.5-0.9) 09/13/24 18:55 GFR Calculation 67.1 mL/min (90-130) L 09/13/24 18:55 Glucose 110 mg/dL (65-115) 09/13/24 18:55 POC Glucose 146 mg/dL (70-110) H 09/13/24 20:08 Calculated Osmolality 292 mOsm/kg (285-295) 09/13/24 18:55 Lactic Acid 1.7 mmol/L (0.5-2.2) 09/13/24 18:55 Calcium 9.4 mg/dL (8.5-10.5) 09/13/24 18:55 Magnesium 1.8 mg/dL (1.7-2.3) 09/13/24 18:55 Total Bilirubin 0.2 mg/dL (0.15-1.2) 09/13/24 18:55 AST 22 U/L (0-32) 09/13/24 18:55 ALT 30 U/L (0-33) 09/13/24 18:55 Alkaline Phosphatase 48 U/L (35-105) 09/13/24 18:55 Troponin T Baseline < 6 ng/L (0-10) 09/13/24 18:55 Troponin T 120 Minute 6.00 ng/L (0-10) 09/13/24 20:20 Delta Troponin T 0.14907 ABS# (0-10) 09/13/24 20:20 Total Protein 6.3 g/dL (6.6-8.7) L 09/13/24 18:55 Albumin 4.1 g/dL (3.5-5.2) 09/13/24 18:55 Globulin 2.2 g/dL (1.3-4.6) 09/13/24 18:55 Procalcitonin 0.03 ng/mL (0-0.5) 09/13/24 18:55 All radiology interpretation(s) finalized by discharge Discharge Plan Discharge Patient Disposition: Home Clinical Impression: Functional neurological symptom disorder with abnormal movement Condition: Stable Prescriptions: No Action desipramine 100 mg tablet 100 mg PO DAILY quetiapine 300 mg tablet 300 mg PO QPM oxcarbazepine 300 mg tablet 300 mg PO DAILY metformin 500 mg tablet extended release 24 hr 1,000 mg PO BID Qty: 120 3RF aripiprazole [Abilify] 5 mg tablet 5 mg PO DAILY (DME) Blood Glucose Test Strip See Rx Instructions .Route Qty: 100 3RF Rx Instructions: As directed; pt to test 1 x day and prn hypoglycemia omeprazole 40 mg capsule,delayed release(DR/EC) 40 mg PO DAILY Qty: 30 3RF potassium chloride 20 mEq tablet,ER particles/crystals 20 meq PO DAILY Qty: 30 3RF fenofibrate 160 mg tablet 160 mg PO DAILY Qty: 30 3RF atorvastatin 40 mg tablet 40 mg PO DAILY Qty: 30 5RF levetiracetam 500 mg tablet 1,000 mg PO BID Qty: 120 2RF alprazolam [Xanax] 2 mg Tablet 2 mg PO TID PRN (Reason: Anxiety) cyanocobalamin (vitamin B-12) 1,000 mcg tablet 1,000 mcg PO DAILY (DME) lancet-gluc [id number] Kit See Rx Instructions .Route Qty: 1 0RF Rx Instructions: As directed (DME) blood-glucose meter [Blood Glucose Monitoring] Kit See Rx Instructions .Route Qty: 1 0RF Rx Instructions: As directed (DME) Blood Glucose Test Strip See Rx Instructions .Route Qty: 50 0RF Rx Instructions: As directed ramelteon 8 mg tablet 8 mg PO QPM Eliquis 5 mg tablet 5 mg PO BID metoprolol tartrate 100 mg tablet 100 mg PO BID isosorbide dinitrate 20 mg tablet 20 mg PO BID ferrous sulfate [FeroSul] 325 mg (65 mg iron) tablet 325 mg PO QAM lisinopril 2.5 mg tablet 2.5 mg PO DAILY Ozempic 1 mg/dose (4 mg/3 mL) pen injector 1 mg SUBCUT Q7D Rx Instructions: Fridays coenzyme Q10 [Co Q-10] 100 mg Capsule 100 mg PO DAILY desvenlafaxine succinate [Pristiq] 100 mg tablet extended release 24 hr 100 mg PO QAM Discharge Orders: Discharge ED (Routine); Ordered 09/13/24 Ordered By: Boy Guerrero Referrals: Dionna Valdivia DO [Primary Care Provider] - Activity Restrictions/Additional Instructions: Activity restrictions/additional instructions: Thank you for choosing [facility] for your healthcare needs today. Please realize that you were seen in the emergency department and that we are providing you with an emergency medical screening exam and this may not be a complete and all exclusive of all testing and/or medical workup we may need to determine your element or severity of your illness. It is very important that you follow-up as instructed with your primary care provider or specialist for the additional evaluation and to discuss your medical treatment plan. You may return to the emergency department should you have concerns or if your condition changes or worsens in any way. Print Language: Citizen Of [place] Coding Level of Care Code ED Dental Billing Specialist for Marci Helms
[2024-09-13 19:03] LABS: Basophils % 0.8 %; Eosinophils # 0.2 10^3/uL (0.0-0.8); Eosinophils % 3.7 %; Hematocrit 40.2 % (36-47); Lymphocytes # 1.8 10^3/uL (0.8-4.8); Lymphocytes % 34.9 %; Mean Corpuscular HGB Conc 31.6 g/dL (30-55); Mean Corpuscular Hemoglobin 28.3 pg (27-33); Mean Corpuscular Volume 89.7 fl (85-98); Mean Platelet Volume 10.7 fL (7.4-10.4); Monocytes # 0.4 10^3/uL (0.2-0.9); Monocytes % 8.3 %; Neutrophils # 2.63 10^3/uL (1.8-7.7); Neutrophils % 51.9 %; Nucleated Red Blood Cells % 0 %; Platelet Count 323 10^3/cmm (157-399); Red Blood Count 4.48 10^6/uL (3.85-5.65); Red Cell Distribution Width 13.4 % (12.1-15.1); White Blood Count 5.07 10^3/uL (3.29-11.43)
[2024-09-13 19:15] LABS: INR 0.95 (0.8-1.2)
[2024-09-13 19:22] LABS: Troponin(5th) Baseline < 6 ng/L (0-10)
[2024-09-13 19:24] LABS: Alanine Aminotransferase 30 U/L (0-33); Albumin Level 4.1 g/dL (3.5-5.2); Alkaline Phosphatase 48 U/L (35-105); Anion Gap 18.5 (5-19); Aspartate Amino Transferase 22 U/L (0-32); Blood Urea Nitrogen 11 mg/dL (6-20); Calcium 9.4 mg/dL (8.5-10.5); Carbon Dioxide 22 mmol/L (22-29); Chloride 105 mmol/L (98-107); Globulin 2.2 g/dL (1.3-4.6); Glomerular Filtration Rate 67.1 mL/min (90-130); Glucose 110 mg/dL (65-115); Magnesium 1.8 mg/dL (1.7-2.3); Osmolality Calculated 292 mOsm/kg (285-295); Potassium 4.5 mmol/L (3.5-5.1); Sodium 141 mmol/L (136-145); Total Bilirubin 0.2 mg/dL (0.15-1.2); Total Protein 6.3 g/dL (6.6-8.7)
[2024-09-13 19:25] LABS: Lactic Sepsis W/Reflex 1.7 mmol/L (0.5-2.2)
[2024-09-13 19:31] LABS: Procalcitonin 0.03 ng/mL (0-0.5)
[2024-09-13 20:10] LABS: Glucose Point of Care 146 mg/dL (70-110)
[2024-09-13 20:51] LABS: Troponin 5 2HR Delta 0.00001 ABS# (0-10)
--- NOTE | 2024-09-13 21:03 | ECG_ITS ---
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
== END 2024-09-13 22:30 | disposition home or self-care (01) ==
PROVIDERS: Emergency Provider Emergency Medicine; PCP Family Medicine
DX: R29.2 Abnormal reflex (principal); F44.4 Conversion disorder with motor symptom or deficit; Z79.84 Long term (current) use of oral hypoglycemic drugs; Z79.01 Long term (current) use of anticoagulants; Z86.73 Personal history of transient ischemic attack (TIA), and cerebral infarction without residual deficits; J44.9 Chronic obstructive pulmonary disease, unspecified; E11.9 Type 2 diabetes mellitus without complications
CPT/HCPCS: 36415; 36416; 70450; 71045; 80053; 82962; 83605; 83735; 84145; 84484; 85025; 85610; 93005; 99285

== ENCOUNTER 2024-10-01 11:07 | Outpatient (CLI) | payer MEDICARE, MEDICAID, SELFPAY ==
[2024-08-23 11:17] VITALS: BP 123/82; BMI 48.2
--- NOTE | 2024-10-01 11:14 | US_ITS ---
WS: [id number] ULTRASOUND SOFT TISSUES LEFT antecubital fossa. HISTORY: SOFT TISSUE MASS COMPARISON: None available. TECHNIQUE: 2-D and color Doppler imaging is submitted. No obvious mass identified. The visualized vessels have normal color Doppler in the region of the antecubital fossa. No increased vascularity. US/US soft tissue/extremity [id number] IMPRESSION: Limited ultrasound evaluation of the LEFT antecubital fossa. There is no defini te mass identified. Clinically if there is a continued soft tissue mass conside r MRI evaluation.
== END 2024-10-01 11:08 | disposition home or self-care (01) ==
PROVIDERS: PCP Family Medicine; Visit Provider Family Medicine
DX: M79.9 Soft tissue disorder, unspecified (principal); M79.602 Pain in left arm
CPT/HCPCS: 76882

== ENCOUNTER 2025-01-16 13:10 | Emergency (ER) | payer MEDICARE, MEDICAID, SELFPAY ==
[2024-08-23 11:17] VITALS: BP 123/82; BMI 48.2
[2025-01-16 13:22] VITALS: BP 124/81; PULSE 73; RESP 18; TEMP 36.5; O2SAT 97; BMI 46.1
--- NOTE | 2025-01-16 14:07 | CT_ITS ---
WS: [id number] CT HEAD TECHNIQUE: Noncontrast CT of the head obtained from the skullbase to the vertex. CLINICAL INFORMATION: Head trauma on anticoagulation COMPARISON: 09/03/2024 DLP: 1252.[address] scans at [facility] use at least one of these dose optimization techniques: automated exposure control; mA and/or kV adjustment per patient size (includes targeted exams where dose is matched to clinical indication); or iterative reconstruction. FINDINGS: No evidence of intracranial hemorrhage or mass effect. Ventricular system and basal cisterns are patent. No extra-axial fluid collections. No evidence of mass or mass effect. Normal sharif-white differentiation. Paranasal sinuses and mastoid air cells are well aerated. .Normal visualized soft tissues. CT/CT head wo con* [id number] IMPRESSION: 1. No evidence of intracranial hemorrhage or mass effect. 2. No acute intracranial findings.
--- NOTE | 2025-01-16 16:00 | W.ED.SYNCOPE ---
HPI - Syncope General: Chief Complaint: Syncope Stated Complaint: seizures Time Seen by Provider: 01/16/25 15:54 History of Present Illness: 49-year-old female who presents to the emergency room with complaint of having had 2 seizure-like episodes today. She has had these in the past she has seen neurology. They feel that these are functional neurologic episodes she was on Keppra 1 time but that was stopped. She is supposed to be seeing a neurologist for further evaluation in [place] but has not yet been there. She is on Eliquis. Earlier today when she had the episodes that she states she hit her head. She has not had any vomiting since then. Associated symptoms: Deny abdominal pain, chest pain or fever(s) Related Data Home Medications ?Medication ?Instructions ?Recorded ?Confirmed alprazolam 2 mg tablet (Xanax) 2 mg PO TID PRN Anxiety 11/16/19 12/31/24 aripiprazole 5 mg tablet (Abilify) 5 mg PO DAILY 04/27/23 12/31/24 desvenlafaxine succinate 100 mg 100 mg PO QAM 05/16/23 12/31/24 tablet,extended release 24 hr (Pristiq) desipramine 100 mg tablet 100 mg PO DAILY 10/24/23 12/31/24 oxcarbazepine 300 mg tablet 300 mg PO DAILY 10/24/23 12/31/24 quetiapine 300 mg tablet 300 mg PO QPM 10/24/23 12/31/24 cyanocobalamin (vitamin B-12) 1,000 mcg PO DAILY 02/12/24 12/31/24 1,000 mcg tablet apixaban 5 mg tablet (Eliquis) 5 mg PO BID 06/21/24 12/31/24 ferrous sulfate 325 mg (65 mg 325 mg PO QAM 06/21/24 12/31/24 iron) tablet (FeroSul) isosorbide dinitrate 20 mg tablet 20 mg PO BID 06/21/24 12/31/24 metoprolol tartrate 100 mg tablet 100 mg PO BID 06/21/24 12/31/24 ramelteon 8 mg tablet 8 mg PO QPM 06/21/24 12/31/24 lisinopril 2.5 mg tablet 2.5 mg PO DAILY 08/11/24 12/31/24 semaglutide 1 mg/dose (4 mg/3 mL) 1 mg SUBCUT Q7D 08/11/24 12/31/24 subcutaneous pen injector (Ozempic) coenzyme Q10 100 mg capsule (Co 100 mg PO DAILY 09/02/24 12/31/24 Q-10) Previous Rx's ?Medication ?Instructions ?Recorded blood sugar diagnostic (Blood #100 ea 04/24/23 Glucose Test strips) blood sugar diagnostic (Blood #50 ea 02/15/24 Glucose Test strips) blood-glucose meter (Blood Glucose #1 ea 02/15/24 Monitoring kit) lancets-blood glucose test #1 ea 02/15/24 strips-pen needles with gauze kit atorvastatin 40 mg tablet 40 mg PO DAILY #30 tabs 03/07/24 fenofibrate 160 mg tablet 160 mg PO DAILY #30 tabs 03/07/24 levetiracetam 500 mg tablet 1,000 mg (2 x 500 mg) PO BID #120 03/07/24 tabs metformin 500 mg tablet,extended 1,000 mg (2 x 500 mg) PO BID #120 03/07/24 release 24 hr tabs omeprazole 40 mg capsule,delayed 40 mg PO DAILY #30 caps 03/07/24 release potassium chloride 20 mEq 20 meq PO DAILY #30 tabs 03/07/24 tablet,extended release(part/cryst) fluconazole 150 mg tablet 150 mg PO Q72H 3 days #2 tabs 12/31/24 nystatin 100,000 unit/gram topical 1 applic topical TID 10 days #30 12/31/24 ointment grams Allergies Allergy/AdvReac Type Severity Reaction Status Date / Time venom-wasp Allergy Severe ALGY-Anaphy Verified 01/16/25 13:25 laxis clonazepam (From Klonopin) Allergy Unknown Verified 01/16/25 13:25 Fish Containing Products Allergy anaphylaxis Verified 01/16/25 13:25 iodine Allergy ALGY-Anaphy Verified 01/16/25 13:25 laxis bupropion (From Wellbutrin) AdvReac Severe sucidal Verified 01/16/25 13:25 fluoxetine (From Prozac) AdvReac Severe sucidal Verified 01/16/25 13:25 topiramate (From Topamax) AdvReac Severe passing out Verified 01/16/25 13:25 venlafaxine (From Effexor) AdvReac Intermediate hives Verified 01/16/25 13:25 lamotrigine (From Lamictal) AdvReac Mild weight gain Verified 01/16/25 13:25 duloxetine (From Cymbalta) AdvReac Unknown Bumps Verified 01/16/25 13:25 inside mouth escitalopram (From Lexapro) AdvReac Unknown Made me Verified 01/16/25 13:25 psychotic sumatriptan AdvReac ADR-Depress Verified 01/16/25 13:25 ion Review of Systems Const: Denies: fever(s) or chills Card: Denies: chest pain Resp: Denies: dyspnea GI: Denies: abdominal pain : Denies: dysuria, urinary frequency or urinary urgency Musc: Denies: neck pain or back pain Skin/Breast: Denies: rash PFSH ED PFSH: Medical History Psychiatric care Seizure disorder PTSD (post-traumatic stress disorder) Type 2 diabetes mellitus Anxiety Depression with suicidal ideation COPD (chronic obstructive pulmonary disease) Gastro-esophageal reflux disease without esophagitis Controlled with medication. Chronic constipation Controlled with medications followed by her primary care provider H/O deep venous thrombosis Reports having a DVT in 2019 and states her warfarin dose was increased after this. She follows up with Dr. Crespo -had second DVT in 11/2019 and was taken off warfarin and is now on eliquis Personal history of pulmonary embolism (2013) Depression Diagnosed at the age of 23 and has been on medication since then. She follows up with Dr. Benitez a psychiatrist and as well as therapy in [place]. She currently denies suicidal/homicidal ideation. Obstructive sleep apnea TIA (transient ischemic attack) Reports having had a TIA in 2019. Denies any neurological deficits. Followed by her primary care provider. Essential (primary) hypertension Diagnosed in 2019 and she follows up with Dr. Anderson and cardiology. Surgical History Status post conization of cervix Office LEEP procedure performed by Dr. Zelaya in 2005 for MARY-2 on Pap smear. 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 Status post knee surgery 2018-open knee surgery for torn ACL Status post left breast lumpectomy Patient reports having had 3 lumpectomies of her left breast in 1999, 2007 and 2009 for benign lesions. Family History Mother Hypertension Heart disease Grandmother Hypertension maternal and paternal Breast cancer maternal, diagnosed at age 43 Colon cancer maternal, diagnosed at age 63 Father Hypertension Grandfather Hypertension maternal and paternal Heart disease maternal Denies family history of Ovarian cancer Diabetes Uterine cancer Thyroid disease Stroke Social History Smoking and tobacco/nicotine status: never used tobacco/nicotine Second hand smoke exposure: Yes Alcohol intake: former Substance/Drug Use: current Substance/Drug use frequency: few times a week Adopted: No Caregiver/support person: No Lives independently: Yes Household members: none Housing: Apartment Marital status: Single Number of children: 0 Number of grandchildren: 0 Highest education level completed: Bachelor's Degree Education level details: criminology, psycology and sociology service: No Current occupational status: disabled Current occupational exposures/hazards: No Pets and animals: Yes Pets & animals: dog(s) Leisure activites: music Sexually active: No Do you think of yourself as: Bisexual Current gender identity: Female Caridad/Roman Catholic: Pentecostalism Special caridad needs: No Agree to transfusion: Yes Female Reproductive History: Para: 0 Spontaneous abortions: No Physical Exam Const: GENERAL APPEARANCE: cooperative ORIENTATION/CONSCIOUSNESS: Yes awake, Yes oriented to person, Yes oriented to place and Yes oriented to time HENMT: COMMON NORMALS: normocephalic, atraumatic and hearing grossly normal bilaterally HEAD & SCALP: normocephalic and atraumatic Resp: COMMON NORMALS: normal respiratory effort, No retractions, No use of accessory muscles and clear to auscultation bilaterally AUSCULTATION: clear to auscultation bilaterally Cardio: COMMON NORMALS: regular rate, regular rhythm and No murmurs present (Cardio) RATE: regular rate RHYTHM: regular rhythm GI: COMMON NORMALS: Soft to palpation and No hepatosplenomegaly present AUSCULTATION: Yes normoactive bowel sounds PALPATION: Yes Soft to palpation, No Tenderness to palpation present (GI), No Guarding due to palpation present (GI) and Yes No hepatosplenomegaly present Extremity: COMMON NORMALS: normal to inspection, capillary refill normal, no clubbing, cyanosis or edema, no calf tenderness and no pedal edema Neuro: SENSORIUM/ORIENTATION: Yes oriented to person, Yes oriented to place and Yes oriented to time Skin: COMMON NORMALS: no rashes or lesions noted GENERAL SKIN EXAM: no rashes or lesions noted Course Vital Signs: Vital signs: Vital Signs Temperature 97.7 F 01/16/25 13:22 Pulse Rate 66 01/16/25 16:33 Respiratory Rate 16 01/16/25 16:33 Blood Pressure 140/98 01/16/25 16:33 Pulse Oximetry 95 01/16/25 16:33 Oxygen Delivery Me thod Room Air 01/16/25 13:22 MDM - Syncope Medical Decision Making Patient reports having seizures however talking to her it sounds like she may have had a functional neurologic episode there is been some concern about these in the past no findings of seizure by history or exam at this time. Her lactate and CPK are unremarkable. Will discharge patient home have her follow-up with neurology Lab Data 01/16/25 16:23 01/16/25 16:[address] 01/16/25 14:07 IMPRESSION: 1. No evidence of intracranial hemorrhage or mass effect. 2. No acute intracranial findings. Laboratory Results WBC 4.36 10^3/uL (3.29-11.43) 01/16/25 16:23 RBC 3.80 10^6/uL (3.85-5.65) L 01/16/25 16:23 Hgb 11.10 g/dL (11.27-16.99) L 01/16/25 16:23 Hct 34.7 % (36-47) L 01/16/25 16:23 MCV 91.3 fl (85-98) 01/16/25 16:23 MCH 29.2 pg (27-33) 01/16/25 16:23 MCHC 32.0 g/dL (30-55) 01/16/25 16:23 RDW 13.9 % (12.1-15.1) 01/16/25 16:23 Plt Count 259 10^3/cmm (157-399) 01/16/25 16:23 MPV 10.8 fL (7.4-10.4) H 01/16/25 16:23 Neut % (Auto) 55.9 % 01/16/25 16:23 Lymph % (Auto) 29.6 % 01/16/25 16:23 [place] % (Auto) 8.9 % 01/16/25 16:23 Eos % (Auto) 4.6 % 01/16/25 16:23 Baso % (Auto) 0.5 % 01/16/25 16:23 Neut # (Auto) 2.44 10^3/uL (1.8-7.7) 01/16/25 16:23 Lymph # (Auto) 1.3 10^3/uL (0.8-4.8) 01/16/25 16:23 [place] # (Auto) 0.4 10^3/uL (0.2-0.9) 01/16/25 16:23 Eos # (Auto) 0.2 10^3/uL (0.0-0.8) 01/16/25 16:23 Baso # (Auto) 0.0 10^3/uL (0.0-0.1) 01/16/25 16:23 Nucleated RBC % (auto) 0 % 01/16/25 16:23 Nucleated RBCs # 0.0 /100WBC 01/16/25 16:23 Sodium 139 mmol/L (136-145) 01/16/25 16:23 Potassium 4.2 mmol/L (3.5-5.1) 01/16/25 16:23 Chloride 104 mmol/L (98-107) 01/16/25 16:23 Carbon Dioxide 26 mmol/L (22-29) 01/16/25 16:23 Anion Gap 13.2 (5-19) 01/16/25 16:23 BUN 13 mg/dL (6-20) 01/16/25 16:23 Creatinine 1.0 mg/dL (0.5-0.9) H 01/16/25 16:23 GFR Calculation 59.4 mL/min (90-130) L 01/16/25 16:23 Glucose 131 mg/dL (65-115) H 01/16/25 16:23 Calculated Osmolality 290 mOsm/kg (285-295) 01/16/25 16:23 Lactic Acid 1.4 mmol/L (0.5-2.2) 01/16/25 16:23 Calcium 8.7 mg/dL (8.5-10.5) 01/16/25 16:23 Magnesium 1.7 mg/dL (1.7-2.3) 01/16/25 16:23 Total Bilirubin 0.2 mg/dL (0.15-1.2) 01/16/25 16:23 AST 18 U/L (0-32) 01/16/25 16:23 ALT 23 U/L (0-33) 01/16/25 16:23 Alkaline Phosphatase 38 U/L (35-105) 01/16/25 16:23 Creatine Kinase 50 U/L (26-192) 01/16/25 16:23 Total Protein 6.1 g/dL (6.6-8.7) L 01/16/25 16:23 Albumin 3.6 g/dL (3.5-5.2) 01/16/25 16:23 Globulin 2.5 g/dL (1.3-4.6) 01/16/25 16:23 All radiology interpretation(s) finalized by discharge Discharge Plan Discharge Patient Disposition: Home Clinical Impression: Functional neurological symptom disorder with abnormal movement Condition: Stable Prescriptions: No Action desipramine 100 mg tablet 100 mg PO DAILY quetiapine 300 mg tablet 300 mg PO QPM oxcarbazepine 300 mg tablet 300 mg PO DAILY metformin 500 mg tablet extended release 24 hr 1,000 mg PO BID Qty: 120 3RF nystatin 100,000 unit/gram ointment 1 applic topical TID 10 Days Qty: 30 0RF fluconazole 150 mg tablet 150 mg PO Q72H 3 Days Qty: 2 0RF aripiprazole [Abilify] 5 mg tablet 5 mg PO DAILY (DME) Blood Glucose Test Strip See Rx Instructions .Route Qty: 100 3RF Rx Instructions: As directed; pt to test 1 x day and prn hypoglycemia omeprazole 40 mg capsule,delayed release(DR/EC) 40 mg PO DAILY Qty: 30 3RF potassium chloride 20 mEq tablet,ER particles/crystals 20 meq PO DAILY Qty: 30 3RF fenofibrate 160 mg tablet 160 mg PO DAILY Qty: 30 3RF atorvastatin 40 mg tablet 40 mg PO DAILY Qty: 30 5RF levetiracetam 500 mg tablet 1,000 mg PO BID Qty: 120 2RF alprazolam [Xanax] 2 mg Tablet 2 mg PO TID PRN (Reason: Anxiety) cyanocobalamin (vitamin B-12) 1,000 mcg tablet 1,000 mcg PO DAILY (DME) lancet-gluc tvomb-jqqffd-wmmco Kit See Rx Instructions .Route Qty: 1 0RF Rx Instructions: As directed (DME) blood-glucose meter [Blood Glucose Monitoring] Kit See Rx Instructions .Route Qty: 1 0RF Rx Instructions: As directed (DME) Blood Glucose Test Strip See Rx Instructions .Route Qty: 50 0RF Rx Instructions: As directed ramelteon 8 mg tablet 8 mg PO QPM Eliquis 5 mg tablet 5 mg PO BID metoprolol tartrate 100 mg tablet 100 mg PO BID isosorbide dinitrate 20 mg tablet 20 mg PO BID ferrous sulfate [FeroSul] 325 mg (65 mg iron) tablet 325 mg PO QAM lisinopril 2.5 mg tablet 2.5 mg PO DAILY Ozempic 1 mg/dose (4 mg/3 mL) pen injector 1 mg SUBCUT Q7D Rx Instructions: Fridays coenzyme Q10 [Co Q-10] 100 mg Capsule 100 mg PO DAILY desvenlafaxine succinate [Pristiq] 100 mg tablet extended release 24 hr 100 mg PO QAM Discharge Orders: Discharge ED (Routine); Ordered 01/16/25 Ordered By: Waldemar Augustine Referrals: Dionna Valdivia DO [Primary Care Provider, [facility]] Discharge Diet: Usual diet Discharge Activity: Resume usual activity Patient Instructions: Opioid Safety, Pain Management, Patient Portal & Jose J Instructions Activity Restrictions/Additional Instructions: Thank you for choosing [facility] for your healthcare needs today. It is very important that you follow up as instructed or that you return to the Emergency Department should you have concerns or if your condition changes or worsens in any way. You were seen in the emergency room with concerns about a 2 seizure-like episodes today. Reviewing your chart the neurologist felt that these are functional neurologic episodes. They did not want you to continue on any antiseizure medications at this time. We did do a CT of your head because you had reported hitting your head and you are on Eliquis that was normal and there was no evidence of bleeding. Recommend you stay off the Keppra for now. Follow-up through Dr. Marroquin's office for further secondary referral to neurology. Print Language: Kinyarwanda Coding Level of Care Code ED Fur Polisher for Marci Helms
[2025-01-16 16:04] VITALS: BP 140/98; O2SAT 96
[2025-01-16 16:31] LABS: Hematocrit 34.7 % (36-47); Hemoglobin 11.10 g/dL (11.27-16.99); Mean Corpuscular HGB Conc 32.0 g/dL (30-55); Mean Corpuscular Hemoglobin 29.2 pg (27-33); Mean Corpuscular Volume 91.3 fl (85-98); Nucleated Red Blood Cells % 0 %; Platelet Count 259 10^3/cmm (157-399); Red Blood Count 3.80 10^6/uL (3.85-5.65); White Blood Count 4.36 10^3/uL (3.29-11.43)
[2025-01-16 16:33] VITALS: BP 140/98; PULSE 66; RESP 16; O2SAT 95
[2025-01-16 16:51] LABS: Lactic Sepsis W/Reflex 1.4 mmol/L (0.5-2.2)
[2025-01-16 16:52] LABS: Alanine Aminotransferase 23 U/L (0-33); Albumin Level 3.6 g/dL (3.5-5.2); Alkaline Phosphatase 38 U/L (35-105); Anion Gap 13.2 (5-19); Aspartate Amino Transferase 18 U/L (0-32); Blood Urea Nitrogen 13 mg/dL (6-20); Calcium 8.7 mg/dL (8.5-10.5); Carbon Dioxide 26 mmol/L (22-29); Chloride 104 mmol/L (98-107); Creatinine Clr Calc Pharmacy 89.6190; Globulin 2.5 g/dL (1.3-4.6); Glucose 131 mg/dL (65-115); Magnesium 1.7 mg/dL (1.7-2.3); Osmolality Calculated 290 mOsm/kg (285-295); Potassium 4.2 mmol/L (3.5-5.1); Sodium 139 mmol/L (136-145); Total Protein 6.1 g/dL (6.6-8.7)
--- OUTSIDE RECORDS SUMMARY | 2025-01-17 05:59 | XMS_ITS | Clinical Summary ---
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
--- OUTSIDE RECORDS SUMMARY | 2025-01-17 05:59 | XMS_ITS | Encounter Summary ---
Author Organization [facility] Address [address] [place] [address] Care Team Providers Care Chemic Mangler Name Role Phone Unavailable Primary Care Provider Unavailabl e Encounter Details Date Type Department Care Team (Late st Contact Info) Description 03/18/2008 Emergency [facility] Emergency Department [address] [place] [address] Ed, Physician NO ADDRESS ON FILE Sanjuana Martins MD [address] [place] [address] Social History Tobacco Use Types Packs/Day Years Used Date Smoking Tobacco: Never Assessed Comments Unknown Sex and Gender Information Value Date Recorded Sex Assigned at Not on file 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 Gender Identity Not on file Sexual Orientation Not on file documented as of this encounter Plan of Treatment Not on file documented as of this encounter Procedures Procedure Name Priority Date/Time Associated Diagnosis Comments CT HEAD WO CONTRAST Routine 03/18/2008 8 :03 PM CDT CARDIAC ENZYMES Stat 03/18/2008 7:38 PM CDT CBC WITH DIFFERENTIAL Stat 03/18/2008 7:38 PM CDT PTT Stat 03/18/2008 7:38 PM CDT PROTIME-INR Stat 03/18/2008 7:38 PM CDT HCG QUANTITATIVE, BLOOD Stat 03/18/2008 7:38 PM CDT TSH Stat 03/18/2008 7:38 PM CDT BASIC METABOLIC PANEL Stat 03/18/2008 7:38 PM CDT XR CHEST PA OR AP 1 VW Routine 03/18/2008 7:17 PM CDT documented in this encounter Results * CT HEAD WO CONTRAST (03/18/2008 8:03 PM CDT) Anatomical Region Laterality Modality Head Other 03/18/2008 8:03 PM CDT Narrative 03/19/2008 4:[address] Scan of the Head Without IV Contrast Infusion 03/18/2008. History: Syncope. Chest pain. Helical scanning of the brain was performed without the use of IV contrast material. The ventricles are of normal size and configuration. There are no hemorrhages. I see no masses. The bony calvarium is intact. Impression: Negative CT scan of the brain. - Dictated By: Daljit Parker MD Electronically Signed By: Daljit Parker MD Date Signed: 03/19/08 Procedure Note Daljit Parker - 03/19/2008 CT Scan of the Head Without IV Contrast Infusion 03/18/2008. History: Syncope. Chest pain. Helical scanning of the brain was performed without the use of IV contrastmaterial. The ventricles are of normal size and configuration. There are nohemorrhages. I see no masses. The bony calvarium is intact. Impression: Negative CT scan of the brain. - Dictated By: Daljit Parker MD Electronically Signed By: Daljit Parker MD Date Signed: 03/19/08 us [address]juana Martins MD CT ORDERABLES Final Resu lt * HCG QUANTITATIVE, BLOOD (03/18/2008 7:38 PM CDT) CHORIONIC GONADOTROPIN, TOTAL <2.0 0.0 - 10.0 mlU/ML [facility] Comment: Total HCG levels between 10 mIU/mL and 25 mIU/mL may be indicative of early but need to be correlated with other clinical findings. HCG ranges during normal , as reported by the watch repairer apprentice, are summarized as follows: Gestational Age Expected hCG Values (mIU/ml) 0.2-1 Weeks 5 - 50 1-2 Weeks 50 - 500 2-3 Weeks 100 - 5,000 3-4 Weeks 1,000 - 50,000 5-6 Weeks 10,000 - 100,000 6-8 Weeks 15,000 - 200,000 2-3 Months 10,000 - 100,000 Blood specimen (specimen) 03/18/2008 7:38 PM CDT 03/18/2008 9:05 PM CDT Sanjuana Martins MD CHEMISTRY ORDERABLES Final Result Performing Organization Address [facility] Phone Number INTERFACE SYSTEM Refer to clinic/hospital department [facility] CLIA# [id number] [address] [place] [address] * TSH (03/18/2008 7:38 PM CDT) [facility] TSH 1.322 0.350 - 5.500 uIU/ml [facility] Blood specimen (specimen) 03/18/2008 7:38 PM CDT 03/18/2008 8:53 PM CDT Sanjuana Martins MD CHEMISTRY ORDERABLES Final Result Performing Organization Address [facility] Phone Number INTERFACE SYSTEM Refer to clinic/[facility] department [facility] CLIA# [id number] [address] [place] [address] * (ABNORMAL) BASIC METABOLIC PANEL (03/18/2008 7:38 PM CDT) Pathologist [facility] OSMOLALITY, CALCULATED 283 275 - 295 mOsm/Kg [facility] CREATININE 1.1 0.7 - 1.2 mg/dL [facility] CALCIUM 9.8 8.4 - 10.5 mg/dL [facility] GLUCOSE 98 70 - 110 mg/dL [facility] CHLORIDE 103 95 - 110 mEq/L [facility] ANION GAP 8(L) 9 - 20 mEq/L [facility] SODIUM 138 136 - 145 mEq/L [facility] BUN 12 7 - 17 mg/dL [facility] CO2 31 22 - 32 mmol/l [facility] POTASSIUM 3.8 3.5 - 5.0 mEq/L [facility] Blood specimen (specimen) 03/18/2008 7:38 PM CDT 03/18/2008 7:38 PM CDT us Sanjuana Martins MD CHEMISTRY ORDERABLES Final Result INTERFACE SYSTEM Refer to clinic/hospital department [facility] CLIA# [id number] [address] [place] [address] * (ABNORMAL) CBC WITH DIFFERENTIAL (03/18/2008 7:38 PM CDT) RBC 4.75 4.20 - 5.40 Mil/ul [facility] MCHC 32.9 30.0 - 35.0 g/dL [facility] LYMPHOCYTE ABSOLUTE 2.4 1.2 - 4.0 K/ul [facility] LYMPHOCYTES 27.1 24.0 - 44.0 % [facility] MCV 87.6 84.0 - 103.[address] [facility] BASOPHILS 0.3 0.0 - 1.0 % [facility] MPV 10.3 8.9 - 12.[address] [facility] BASOPHILS ABSOLUTE 0.0 0.0 - 0.2 K/ul [facility] HEMOGLOBIN 13.7 12.0 - 16.0 g/dL [facility] MONOCYTES 9.6 2.0 - 10.0 % [facility] RDW 13.0 11.0 - 14.5 % [facility] MONOCYTE ABSOLUTE 0.9(H) 0.1 - 0.6 K/ul [facility] WBC 8.8 4.5 - 11.0 K/ul [facility] NEUTROPHILS 61.5 42.2 - 75.2 % [facility] MCH 28.8 27.0 - 34.[address] [facility] NEUTROPHIL ABSOLUTE 5.4 2.0 - 8.0 K/ul [facility] HEMATOCRIT 41.6 36.0 - 46.0 % [facility] PLATELETS 340 140 - 440 K/ul [facility] EOSINOPHIL ABSOLUTE 0.1 0.0 - 0.7 K/ul [facility] EOSINOPHILS 1.5 0.0 - 7.0 % [facility] Blood specimen (specimen) 03/18/2008 7:38 PM CDT 03/18/2008 7:38 PM CDT Sanjuana Martins MD HEMATOLOGY ORDERABLES Nydia ceja Result Performing Organization Address [facility] de Phone Number INTERFACE SYSTEM Refer to clinic/hospital department [facility] CLIA# [id number] [address] [place] [address] * PTT (03/18/2008 7:38 PM CDT) [facility] Signature PTT 30.5 22.5 - 36.[address] [facility] Comment: Therapeutic Range: Hi-level PE/DVT heparin protocol 80.1 -95.0 sec Lo-level PE/DVT heparin protocol 67.1 - 80.0 sec Cardiac Heparin Protocol 67.1 - 85.0 sec Neuro Heparin Protocol 67.1 - 80.0 sec As of 09/06/2007 note change in APTT Normal Range. Blood specimen (specimen) 03/18/2008 7:38 PM CDT 03/18/2008 7:38 PM CDT Sanjuana Martins MD HEMATOLOGY ORDERABLES Nydia l Result Performing Organization Address [facility] de Phone Number INTERFACE SYSTEM Refer to clinic/hospital department [facility] CLIA# [id number] [address] [place] [address] * PROTIME-INR (03/18/2008 7:38 PM CDT) PROTIME 14.2 12.8 - 15.[address] [facility] Comment:As of 2007 not e change in normal range. INR 1.0 [facility] Comment: Expected Values for INR: DVT/PE Goal INR 2.5; range 2.0 - 3.0 Valve Replacement Tissue Goal INR 2.5; range 2.0 - 3.0 Mechanical Goal INR 3.0; range 2.5 - 3.5 POST-NH Goal INR 2.5; range 2.0 - 3.0 or Goal 3.0; range 2.5 - 3.5 Atrial Fibrillation Goal INR 2.5; range 2.0 - 3.0 Ischemic Stroke Goal INR 2.5; range 2.0 - 3.0 For additional information see Guidelines for Anticoagulation available from the pharmacy Sakshi Gonzales D. [phone] Blood specimen (specimen) 03/18/2008 7:38 PM CDT 03/18/2008 7:38 PM CDT Sanjuana Martins MD HEMATOLOGY ORDERABLES Nydia l Result Performing Organization Address City/State/[facility] Co de Phone Number INTERFACE SYSTEM Refer to clinic/hospital department [facility] CLIA# [id number] [facility] [place] [address] * CARDIAC ENZYMES (03/18/2008 7:38 PM CDT) CKMB 0.4 0.0 - 5.0 ng/mL [facility] TROPONIN I <0.1 0.0 - 1.3 ng/mL [facility] Blood specimen (specimen) 03/18/2008 7:38 PM CDT 03/18/2008 7:38 PM CDT us Sanjuana Martins MD CHEMISTRY ORDERABLES Final Result INTERFACE SYSTEM Refer to clinic/hospital department [facility] CLIA# [id number] [address] [place] [address] * XR CHEST PA OR AP (03/18/2008 7:17 PM CDT) Anatomical Region Laterality Modality Chest Other 03/18/2008 7:17 PM CDT Narrative 03/19/2008 4:07 PM CDT Exam: Chest - Portable Date/Time of Exam: Mar 18, 2008 7:17:33 PM History: Chest pain. Findings: The lungs are free of infiltrates. The heart and pulmonary vasculature are within normal limits. Impression: No acute disease. - Dictated By: Daljit Parker MD Electronically Signed By: Daljit Parker MD Date Signed: 03/19/08 AMA Procedure Note Daljit Parker - 03/19/2008 Exam: Chest - Portable Date/Time of Exam: Mar 18, 2008 7:17:33 PM History: Chest pain. Findings: The lungs are free of infiltrates. The heart and pulmonaryvasculature are within normal limits. Impression: No acute disease. - Dictated By: Daljit Parker MD Electronically Signed By: Daljit Parker MD Date Signed: 03/19/08 AMA us Sanjuana Martins MD DIAGNOSTIC IMAGING ORDERAB LES Final Result documented in this encounter Visit Diagnoses Not on filedocumented in this encounter
--- OUTSIDE RECORDS SUMMARY | 2025-01-17 05:59 | XMS_ITS | Patient Health Record ---
Author Organization [facility] Address [address] [place] [address] Care Team Providers Care Vp Production Name Role Phone Christa Chew Unavailable [phone] Allergies Allergen (clinical drug ingredient) Drug/Non Drug Allergy documented on EMR Reaction Allergy Type Onset Date Status escitalopram Escitalopram Oxalate , Drug Allergy Active venlafaxine Venlafaxine HCl , Drug Allergy Active topiramate Topiramate nausea and vomiting Drug Allergy Active Reason For Referral No Information Medications Medication SIG (Take, Route, Frequency, Duration) Notes Start Date End Date Status metFORMIN HCl 500 mg Tablet TAKE TWO TABLETS BY MOUTH TWICE DAILY; Duration: 30 Active Eliquis 5 mg Tablet TAKE ONE TABLET BY MOUTH TWICE DAILY DIRECTED; Duration: 30 Active Isosorbide Dinitrate 20 mg Tablet TAKE ONE TABLET BY MOUTH TWICE DAILY; Duration: 30 Active Chlorthalidone 25 mg Tablet TAKE ONE TABLET BY MOUTH EVERY MORNING with food; Duration: 30 Active Potassium Chloride Jerica ER 20 mEq Tablet Extended Release TAKE ONE TABLET BY MOUTH ONCE a DAY with food; Duration: 30 Needs lab Active glipiZIDE 10 mg Tablet TAKE ONE TABLET BY MOUTH TWICE DAILY; Duration: 30 Active Nystatin 089023 UNIT/GM Cream 1 application as needed Externally Twice a day 0 Active FeroSul 325 (65 Fe) MG Tablet TAKE ONE TABLET BY MOUTH EVERY DAY; Duration: 30 Active 24 HR Desvenlafaxine 100 MG Extended Release Tablet [Pristiq] 24 HR Desvenlafaxine 100 MG Extended Release Tablet [Pristiq] 8 Active amLODIPine Besylate 10 MG Tablet 1 tablet Orally Once a day Active Klor-Con M20 20MEQ Tablet Extended Release 1 tablet with food Orally Once a day; Duration: 30 days Active Fluconazole 150 mg Tablet TAKE ONE TABLET BY MOUTH FOR a one time DOSE; Duration: 1 Active Rizatriptan Benzoate 10 MG Tablet Disintegrating 1 tablet as directed as needed Orally 2 Active Pristiq 100 MG Tablet Extended Release 24 Hour 1 tablet Orally Once a day Active Abilify 5 MG Tablet 1 tablet Orally Once a day Active hydroCHLOROthiazide 12.5 MG Tablet 1 tablet in the morning Orally Once a day Not-Taking Ferrous Sulfate 325 (65 Fe) MG Tablet 1 tablet Orally Once a day; Duration: 30 days Active Vitamin D (Ergocalciferol) 1.25 MG (87813 UT) Capsule TAKE ONE CAPSULE BY MOUTH ONCE A WEEK; Duration: 30 Active quetiapine 300 MG Oral Tablet quetiapine 300 MG Oral Tablet 8 Active Jardiance 25 mg Tablet TAKE ONE TABLET BY MOUTH ONCE a DAY; Duration: 30 Active Omeprazole 40 mg Capsule Delayed Release TAKE ONE CAPSULE BY MOUTH ONCE PER DAY; Duration: 30 Active Metoprolol Tartrate 100 mg Tablet TAKE ONE TABLET BY MOUTH TWICE DAILY with food; Duration: 30 Active Ondansetron 8 MG Tablet Disintegrating 1 tablet on the tongue and allow to dissolve as needed Orally every 6 hours Active Alprazolam 2 MG Oral Tablet Alprazolam 2 MG Oral Tablet 8 Active Immunizations Vaccine Route Administration Date Status Comme nts Influenza (whole), CPT 76801 Inactive Unknown 06/20/2017 Administered Social History Tobacco Use: Social History Observation Description Date Details (start date - stop date) Never Smoker NA - NA Social History Depression Screening Social Info Question Answer Notes PHQ-9 Little interest or p christopher in doing things More than half the days Feeling down, depressed, or hopeless More than h ivon the days Trouble falling or staying a sleep, or sleeping too much More than half the days Feeling tired or having little energy Nearly andrea ry day Poor appetite or overeating Nearly every day Feeling bad about yourself, or that you are a failure, or have let yourself or your family down More than half the days Trouble concentrating on thi ngs, such as reading the newspaper or watching television Several days Moving or speaking so slowly that other people could have noticed. Or the opposite ? being so fidgety or restless that you have been moving around a lot more than usual Several days Thoughts that you would be b cynthia off , or of hurting yourself in some way Not at all Total Score 16 Interpretation Moderately severe depression Drugs/Alcohol: Social Info Question Answer Notes Alcohol Screen (Audit-C) Did you have a drink containing alcohol in the past year? No Points 0 Interpretation Negative Drugs Have you used drugs other than those for medical reasons in the past 12 months? Yes Are you still using? No LSD? 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 Ulrich d medical marijuana card does not smoke, THC gummy zzMigrated Social History Migrated Social History Smoking Status:Never smoked tobacco (finding) Section Notes: 09/09/20 sees therapist every Monday at 1pm 09/09/20 sees therapist every Monday at 1pm 09/09/20 sees therapist every Monday at 1pm 09/09/20 sees therapist every Monday at 1pm 09/09/20 sees therapist every Monday at 1pm 08/31/20 Patient has appt wit h therapist on 09/01/20 09/09/20 sees therapist every Monday at 1pm 09/09/20 sees therapist every Monday at 1pm 09/09/20 sees therapist every Monday at 1pm 09/09/20 sees therapist every Monday at 1pm 09/09/20 sees therapist every Monday at 1pm 09/09/20 sees therapist every Monday at 1pm Problems Problem Type SNOMED Code ICD Code Onset Dates Problem Status W/U Status Risk Notes Problem Long-term current use of anticoagulant (527951715) intermediate card tender (current) use of anticoagulants (Z79.01) Active confirmed Problem Type II diabetes mellitus without complication (197719875) Type 2 diabetes mellitus without complication, without long-term current use of insulin (E11.9) Active confirmed Problem Gastroesophageal reflux disease (739681795) GERD without esophagitis (K21.9) Active confirmed Problem Vitamin D deficiency (36900873) Vitamin D deficiency (E55.9) Active confirmed Problem Mixed anxiety and depressive disorder (219628497) Depression with anxiety (F41.8) Active confirmed Problem Migraine (53725694) Migraine wit hout status migrainosus, not intractable, unspecified migraine type (G43.909) Active confirmed Problem Secondary hypertension (92432711) Secondary hypertension (I15.9) Active confirmed Problem Schizophrenia (47515910) Schizophrenia, unspecified type (F20.9) Active confirmed Problem Morbid obesity (928241705) Morbid obesity (E66.01) Active confirmed Problem Amnesia (41189062) Memory change s (R41.3) Active confirmed Problem History of pulmonary embolism on long-term anticoagulation therapy (55729305667127236) Hx pulmonary embolism (Z86.711) Active confirmed Plan Of Treatment No Information Insurance Providers Payer Name Payer Address Payer Phone Subscriber Number Group Number Insured Name Patient Relationship to Insured Coverage Start Date Coverage End Date [place] [address] [place] [phone] [id number] Heladio Branch Self - patient is the insured [place] Medicaid [address] [place] [phone] [id number] Heladio Branch Self - patient is the insured Medications Administered Medication Instructions Date of Administration Dosage Notes Ketorolac Tromethamine 06/29/2021 60 mg Ketorolac Tromethamine 07/13/2021 60 mg Ondansetron HCl 06/29/2021 4 mg ZZToradol 60mg/2ml 09/15/2020 60 mg Medical (General) History Medical History History ICD Code Problem:Anxiety (finding) , Status :: Ac tive Problem:Chronic depression (disorder) , Status :: Active Problem:Essential hypertension (disorder ) , Status :: Active Problem:Morbid obesity (disorder) , Stat us :: Active Problem:Obstructive sleep apnea syndrome (disorder) , Status :: Active Surgical History Surgery Date(Month/Year) lumpectomy x 3 left knee meniscus repair Hospitalization History Reason Date(Month/Year) [facility] 12/2021 [facility] 08/2020 chest pain, DVT 11/2019 chest pain 08/2019
== END 2025-01-16 16:34 | disposition home or self-care (01) ==
PROVIDERS: Emergency Provider Family Medicine; PCP Family Medicine
DX: F44.4 Conversion disorder with motor symptom or deficit (principal); Z79.84 Long term (current) use of oral hypoglycemic drugs; Z79.01 Long term (current) use of anticoagulants; J44.9 Chronic obstructive pulmonary disease, unspecified; E11.9 Type 2 diabetes mellitus without complications; I10 Essential (primary) hypertension; Z86.73 Personal history of transient ischemic attack (TIA), and cerebral infarction without residual deficits
CPT/HCPCS: 36415; 70450; 80053; 82550; 83605; 83735; 85025; 99284

== ENCOUNTER 2025-03-06 14:34 | Outpatient (CLI) | payer MEDICARE, MEDICAID, SELFPAY ==
[2024-08-23 11:17] VITALS: BP 123/82; BMI 48.2
--- NOTE | 2025-03-06 14:42 | MM_ITS ---
WS: [id number] BILATERAL 3D TOMOSYNTHESIS DIGITAL SCREENING MAMMOGRAPHY WITH CAD CLINICAL INFORMATION: SCREENING HISTORY: Screening mammogram. No current complaints. COMPARISON: 2020 TECHNIQUE: Bilateral CC and MLO views. FINDINGS: Scattered fibroglandular densities bilaterally. No suspicious focal mass, asymmetry, calcifications, or architectural distortion. No evidence of malignancy. Incidental punctate and lucent centered calcifications. Vascular calcification. MM/MM scr tomosynthesis 17741 IMPRESSION: DENSITY: There are scattered areas of fibroglandular density. BI-RADS: 2 - Benign. FOLLOW UP: 1 Year Follow-up Recommend return to annual screening mammography.
== END 2025-03-06 14:35 | disposition home or self-care (01) ==
PROVIDERS: PCP Family Medicine; Visit Provider Family Medicine
DX: Z12.31 Encounter for screening mammogram for malignant neoplasm of breast (principal); R92.323 Mammographic fibroglandular density, bilateral breasts; R92.1 Mammographic calcification found on diagnostic imaging of breast
CPT/HCPCS: 77063; 77067

== ENCOUNTER 2025-05-30 19:44 | Emergency (ER) | payer MEDICARE, MEDICAID, SELFPAY ==
[2024-08-23 11:17] VITALS: BP 123/82; BMI 48.2
--- NOTE | 2025-05-30 19:44 | ECG_ITS ---
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 Measurements Intervals [place] Rate: 90 P: 32 RI: 187 QRS: 5 QRSD: 105 T: 40 QT: 332 QTc: 408 Interpretive Statements SINUS RHYTHM WITH SINUS ARRHYTHMIA NONSPECIFIC T-WAVE ABNORMALITY Compared to ECG 09/13/2024 21:03:48 NONSPECIFIC T-WAVE ABNORMALITY Electronically Signed On 05-31-2025 19:48:29 AGING DEPARTMENT SUPERVISOR by Frederick Blackwood M.D. [email or web address]
[2025-05-30 19:46] VITALS: BP 151/84; PULSE 97; RESP 18; TEMP 36.6; O2SAT 97; BMI 52.1
--- OUTSIDE RECORDS SUMMARY | 2025-05-30 19:49 | XMS_ITS | Patient Health Record ---
Author Organization [facility] Address [address] [place] [address] Care Team Providers Care Leather Currier Name Role Phone Christa Chew Unavailable [phone] Allergies Allergen (clinical drug ingredient) Drug/Non Drug [...] MOUTH TWICE DAILY; Duration: 30 Active Nystatin 544878 UNIT/GM Cream 1 application as needed Externally [...] days Active Vitamin D (Ergocalciferol) 1.25 MG (92107 UT) Capsule TAKE ONE CAPSULE BY MOUTH [...] Date Status Comme nts Influenza (whole), CPT 26157 Inactive Unknown 06/20/2017 Administered Social History Tobacco Use: Social History Observation Description Date Details (start date - stop date) Never Smoker NA - NA Social History Depression Screening Social Info Question Answer Notes PHQ-9 Little interest or p christopher in doing things More than half the days Feeling down, depressed, or hopeless More than h intermediate the days Trouble falling or staying a [...] Notes Problem Long-term current use of anticoagulant (254956625) long-term (current) use of anticoagulants (Z79.01) Active confirmed Problem Type II diabetes mellitus without complication (655001140) Type 2 diabetes mellitus without complication, without long-term current use of insulin (E11.9) Active confirmed Problem Gastroesophageal reflux disease (616972823) GERD without esophagitis (K21.9) Active confirmed Problem Vitamin D deficiency (21793560) Vitamin D deficiency (E55.9) Active confirmed Problem Mixed anxiety and depressive disorder (475054918) Depression with anxiety (F41.8) Active confirmed Problem Migraine (97214172) Migraine wit hout status migrainosus, not intractable, unspecified migraine type (G43.909) Active confirmed Problem Secondary hypertension (85676691) Secondary hypertension (I15.9) Active confirmed Problem Schizophrenia (85801415) Schizophrenia, unspecified type (F20.9) Active confirmed Problem Morbid obesity (926346000) Morbid obesity (E66.01) Active confirmed Problem Amnesia (91952762) Memory change s (R41.3) Active confirmed Problem History of pulmonary embolism on long-term anticoagulation therapy (67959509557648439) Hx pulmonary embolism (Z86.711) Active confirmed Plan Of Treatment No Information Insurance Providers Payer Name Payer Address Payer Phone Subscriber Number Group Number Insured Name Patient Relationship to Insured Coverage Start Date Coverage End Date [place] Medicare [address] [place] [phone] [id number] Heladio Branch Self - patient is the insured [place] Medicaid [address] [place] [id number] Heladio Branch Self - patient is the [...] knee meniscus repair Hospitalization History Reason Date(Month/Year) [facility]su[facility] attempt 12/2021 [facility] 08/2020 chest pain, DVT 11/2019 chest pain 08/2019
[2025-05-30 20:02] VITALS: BP 142/103; PULSE 103; RESP 25; O2SAT 97
[2025-05-30 20:20] VITALS: RESP 25; O2SAT 96
[2025-05-30] MEDS: morphine 4 mg/mL SDV 1 mL IVP (20:20)
[2025-05-30] MEDS: ondansetron 2 mg/ML SDV 2 mL 4 MG IVP (20:21)
--- NOTE | 2025-05-30 20:28 | XRR_ITS ---
PROCEDURE INFORMATION: Exam: XR Chest Exam date and time: 05/30/2025 8:32 PM Age: 49 years old Clinical indication: Pain; Chest pressure; Additional info: Cp TECHNIQUE: Imaging protocol: Radiologic exam of the chest. Views: 1 view. COMPARISON: CR (CHEST, ) 09/13/2024 7:05 PM FINDINGS: Lungs: Unremarkable. No consolidation. Pleural spaces: Unremarkable. No pleural effusion. No pneumothorax. Heart/Mediastinum: Unremarkable. No cardiomegaly. Bones/joints: Unremarkable. XR/XR chest 1V portable 18983 IMPRESSION: No acute findings.
[2025-05-30 20:37] VITALS: BP 137/68; PULSE 87; RESP 22; O2SAT 94
[2025-05-30 20:39] LABS: Hematocrit 38.6 % (36-47); Hemoglobin 12.30 g/dL (11.27-16.99); Mean Corpuscular HGB Conc 31.9 g/dL (30-55); Mean Corpuscular Hemoglobin 28.1 pg (27-33); Mean Corpuscular Volume 88.3 fl (85-98); Nucleated Red Blood Cells % 0 %; Platelet Count 333 10^3/cmm (157-399); Red Blood Count 4.37 10^6/uL (3.85-5.65); White Blood Count 5.52 10^3/uL (3.29-11.43)
[2025-05-30 20:47] LABS: Troponin(5th) Baseline 8 ng/L (0-10)
[2025-05-30 20:48] LABS: Alanine Aminotransferase 21 U/L (0-33); Albumin Level 4.4 g/dL (3.5-5.2); Alkaline Phosphatase 47 U/L (35-105); Anion Gap 16.7 (5-19); Aspartate Amino Transferase 15 U/L (0-32); Blood Urea Nitrogen 18 mg/dL (6-20); Calcium 9.4 mg/dL (8.5-10.5); Carbon Dioxide 24 mmol/L (22-29); Chloride 102 mmol/L (98-107); Globulin 2.6 g/dL (1.3-4.6); Glucose 182 mg/dL (65-115); Osmolality Calculated 293 mOsm/kg (285-295); Potassium 4.7 mmol/L (3.5-5.1); Sodium 138 mmol/L (136-145); Total Protein 7.0 g/dL (6.6-8.7)
[2025-05-30 21:01] VITALS: BP 136/74; PULSE 89; RESP 21; O2SAT 93
--- NOTE | 2025-05-30 21:08 | W.ED.ANXIETY ---
HPI - Anxiety General: Chief Complaint: Anxiety Stated Complaint: ANXIETY Time Seen by Provider: 05/30/25 19:48 History of Present Illness: Patient is a 49-year-old female presenting with chest pain. She reports that the pain is currently a 5/10 in intensity and states it hurts to breathe. She believes it may be a pulled muscle. Patient has been experiencing a cough for the past few days. She also mentions having been nervous and anxious due to an incident where she accidentally spilled her medication blister packs. This caused significant anxiety as she had a previous suicide attempt with Seroquel (42 pills) that resulted in hospitalization at [facility]. She was concerned others would think she was attempting suicide again. Patient denies current suicidal ideation, stating 'I'm not trying to hurt myself, I'm just tired.' She reports taking multiple medications including those for cardiac issues. Related Data Home Medications ?Medication ?Instructions ?Recorded ?Confirmed alprazolam 2 mg tablet (Xanax) 2 mg PO TID PRN Anxiety 11/16/19 12/31/24 aripiprazole 5 mg tablet (Abilify) 5 mg PO DAILY 04/27/23 12/31/24 desvenlafaxine succinate 100 mg 100 mg PO QAM 05/16/23 12/31/24 tablet,extended release 24 hr (Pristiq) desipramine 100 mg tablet 100 mg PO DAILY 10/24/23 12/31/24 oxcarbazepine 300 mg tablet 300 mg PO DAILY 10/24/23 12/31/24 quetiapine 300 mg tablet 300 mg PO QPM 10/24/23 12/31/24 cyanocobalamin (vitamin B-12) 1,000 mcg PO DAILY 02/12/24 12/31/24 1,000 mcg tablet apixaban 5 mg tablet (Eliquis) 5 mg PO BID 06/21/24 12/31/24 ferrous sulfate 325 mg (65 mg 325 mg PO QAM 06/21/24 12/31/24 iron) tablet (FeroSul) isosorbide dinitrate 20 mg tablet 20 mg PO BID 06/21/24 12/31/24 metoprolol tartrate 100 mg tablet 100 mg PO BID 06/21/24 12/31/24 ramelteon 8 mg tablet 8 mg PO QPM 06/21/24 12/31/24 lisinopril 2.5 mg tablet 2.5 mg PO DAILY 08/11/24 12/31/24 semaglutide 1 mg/dose (4 mg/3 mL) 1 mg SUBCUT Q7D 08/11/24 12/31/24 subcutaneous pen injector (Ozempic) coenzyme Q10 100 mg capsule (Co 100 mg PO DAILY 09/02/24 12/31/24 Q-10) Previous Rx's ?Medication ?Instructions ?Recorded blood sugar diagnostic (Blood #100 ea 04/24/23 Glucose Test strips) blood sugar diagnostic (Blood #50 ea 02/15/24 Glucose Test strips) blood-glucose meter (Blood Glucose #1 ea 02/15/24 Monitoring kit) lancets-blood glucose test #1 ea 02/15/24 strips-pen needles with gauze kit atorvastatin 40 mg tablet 40 mg PO DAILY #30 tabs 03/07/24 fenofibrate 160 mg tablet 160 mg PO DAILY #30 tabs 03/07/24 levetiracetam 500 mg tablet 1,000 mg (2 x 500 mg) PO BID #120 03/07/24 tabs metformin 500 mg tablet,extended 1,000 mg (2 x 500 mg) PO BID #120 03/07/24 release 24 hr tabs omeprazole 40 mg capsule,delayed 40 mg PO DAILY #30 caps 03/07/24 release potassium chloride 20 mEq 20 meq PO DAILY #30 tabs 03/07/24 tablet,extended release(part/cryst) fluconazole 150 mg tablet 150 mg PO Q72H 3 days #2 tabs 12/31/24 nystatin 100,000 unit/gram topical 1 applic topical TID 10 days #30 12/31/24 ointment grams Allergies Allergy/AdvReac Type Severity Reaction Status Date / Time venom-wasp Allergy Severe ALGY-Anaphy Verified 01/16/25 13:25 laxis clonazepam (From Klonopin) Allergy Unknown Verified 01/16/25 13:25 Fish Containing Products Allergy anaphylaxis Verified 01/16/25 13:25 iodine Allergy ALGY-Anaphy Verified 01/16/25 13:25 laxis bupropion (From Wellbutrin) AdvReac Severe sucidal Verified 01/16/25 13:25 fluoxetine (From Prozac) AdvReac Severe sucidal Verified 01/16/25 13:25 topiramate (From Topamax) AdvReac Severe passing out Verified 01/16/25 13:25 venlafaxine (From Effexor) AdvReac Intermediate hives Verified 01/16/25 13:25 lamotrigine (From Lamictal) AdvReac Mild weight gain Verified 01/16/25 13:25 duloxetine (From Cymbalta) AdvReac Unknown Bumps Verified 01/16/25 13:25 inside mouth escitalopram (From Lexapro) AdvReac Unknown Made me Verified 01/16/25 13:25 psychotic sumatriptan AdvReac ADR-Depress Verified 01/16/25 13:25 ion PFSH ED PFSH: Medical History Psychiatric care Seizure disorder PTSD (post-traumatic stress disorder) Type 2 diabetes mellitus Anxiety Depression with suicidal ideation COPD (chronic obstructive pulmonary disease) Gastro-esophageal reflux disease without esophagitis Controlled with medication. Chronic constipation Controlled with medications followed by her primary care provider H/O deep venous thrombosis Reports having a DVT in 2019 and states her warfarin dose was increased after this. She follows up with Dr. Crespo -had second DVT in 11/2019 and was taken off warfarin and is now on eliquis Personal history of pulmonary embolism (2013) Depression Diagnosed at the age of 23 and has been on medication since then. She follows up with Dr. Benitez a psychiatrist and as well as therapy in [place]. She currently denies suicidal/homicidal ideation. Obstructive sleep apnea TIA (transient ischemic attack) Reports having had a TIA in 2019. Denies any neurological deficits. Followed by her primary care provider. Essential (primary) hypertension Diagnosed in 2019 and she follows up with Dr. Anderson and cardiology. Surgical History Status post conization of cervix Office LEEP procedure performed by Dr. Zelaya in 2006 for MARY-2 on Pap smear. 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 Status post knee surgery 2018-open knee surgery for torn ACL Status post left breast lumpectomy Patient reports having had 3 lumpectomies of her left breast in 1999, 2007 and 2009 for benign lesions. Family History Mother Hypertension Heart disease Grandmother Hypertension maternal and paternal Breast cancer maternal, diagnosed at age 43 Colon cancer maternal, diagnosed at age 63 Father Hypertension Grandfather Hypertension maternal and paternal Heart disease maternal Denies family history of Ovarian cancer Diabetes Uterine cancer Thyroid disease Stroke Social History Smoking and tobacco/nicotine status: never used tobacco/nicotine Second hand smoke exposure: Yes Alcohol intake: former Substance/Drug Use: current Substance/Drug use frequency: few times a week Adopted: No Caregiver/support person: No Lives independently: Yes Household members: none Housing: Apartment Marital status: Single Number of children: 0 Number of grandchildren: 0 Highest education level completed: Bachelor's Degree Education level details: criminology, psycology and sociology service: No Current occupational status: disabled Current occupational exposures/hazards: No Pets and animals: Yes Pets & animals: dog(s) Leisure activites: music Sexually active: No Do you think of yourself as: Bisexual Current gender identity: Female Caridad/Yarsanism: Uatsdin Special caridad needs: No Agree to transfusion: Yes Female Reproductive History: Para: 0 Spontaneous abortions: No Physical Exam Const: COMMON NORMALS: no acute distress GENERAL APPEARANCE: cooperative and anxious; not ill appearing and not frail appearing HENMT: COMMON NORMALS: normocephalic, atraumatic and Normal external nose present HEAD & SCALP: normocephalic and atraumatic FACE & SINUS: normal facial exam and face symmetric NOSE: Normal external nose present Eye: COMMON NORMALS: Equal, round and reactive pupils present and EOMs intact bilaterally PUPIL: Yes Equal, round and reactive pupils present Neck/C-Spine: GENERAL: Yes trachea midline Chest: CHEST: Yes Symmetrical chest wall rise Resp: COMMON NORMALS: normal respiratory effort, No retractions, No use of accessory muscles and clear to auscultation bilaterally AUSCULTATION: clear to auscultation bilaterally Cardio: COMMON NORMALS: regular rate and regular rhythm RATE: regular rate RHYTHM: regular rhythm GI: COMMON NORMALS: Normal to inspection, nondistended, normoactive bowel sounds present Extremity: COMMON NORMALS: no pedal edema Neuro: ANGEL COMA SCALE: document GCS findings Angel coma scale eye opening: Spontaneous Angel coma scale verbal response: Orientated Angel coma scale motor response: Obey commands Addison coma scale total score: 15 SENSORY EXAM: Yes extremities (intact) Psych: COMMON NORMALS: speech normal SPEECH: Yes normal speech Skin: COMMON NORMALS: no rashes or lesions noted GENERAL SKIN EXAM: no rashes or lesions noted Course Vital Signs: Vital signs: Vital Signs Temperature 96.9 F L 05/30/25 21:20 Pulse Rate 99 05/30/25 21:20 Respiratory Rate 20 H 05/30/25 21:20 Blood Pressure 134/81 05/30/25 21:20 Pulse Oximetry 94 05/30/25 21:20 MDM - Anxiety Medical Decision Making 49-year-old female with history of anxiety. She presents with chest discomfort. Improved now after some morphine here. CBC is normal. Creatinine is 1.2. Blood sugar is 182. Other indices are normal on BMP. Troponin is 8. EKG is nonacute. Chest x-ray is negative. With improvement in her pain she is stable for discharge Lab Data 05/30/25 19:53 05/30/25 19:53 Radiology Impressions Chest X-Ray 05/30/25 20:28 IMPRESSION: No acute findings. Laboratory Results WBC 5.52 10^3/uL (3.29-11.43) 05/30/25 19:53 RBC 4.37 10^6/uL (3.85-5.65) 05/30/25 19:53 Hgb 12.30 g/dL (11.27-16.99) 05/30/25 19:53 Hct 38.6 % (36-47) 05/30/25 19:53 MCV 88.3 fl (85-98) 05/30/25 19:53 MCH 28.1 pg (27-33) 05/30/25 19:53 MCHC 31.9 g/dL (30-55) 05/30/25 19:53 RDW 13.1 % (12.1-15.1) 05/30/25 19:53 Plt Count 333 10^3/cmm (157-399) 05/30/25 19:53 MPV 10.8 fL (7.4-10.4) H 05/30/25 19:53 Neut % (Auto) 70.8 % 05/30/25 19:53 Lymph % (Auto) 20.5 % 05/30/25 19:53 [place] % (Auto) 5.6 % 05/30/25 19:53 Eos % (Auto) 1.3 % 05/30/25 19:53 Baso % (Auto) 0.7 % 05/30/25 19:53 Neut # (Auto) 3.91 10^3/uL (1.8-7.7) 05/30/25 19:53 Lymph # (Auto) 1.1 10^3/uL (0.8-4.8) 05/30/25 19:53 [place] # (Auto) 0.3 10^3/uL (0.2-0.9) 05/30/25 19:53 Eos # (Auto) 0.1 10^3/uL (0.0-0.8) 05/30/25 19:53 Baso # (Auto) 0.0 10^3/uL (0.0-0.1) 05/30/25 19:53 Nucleated RBC % (auto) 0 % 05/30/25 19:53 Nucleated RBCs # 0.0 /100WBC 05/30/25 19:53 Sodium 138 mmol/L (136-145) 05/30/25 19:53 Potassium 4.7 mmol/L (3.5-5.1) 05/30/25 19:53 Chloride 102 mmol/L (98-107) 05/30/25 19:53 Carbon Dioxide 24 mmol/L (22-29) 05/30/25 19:53 Anion Gap 16.7 (5-19) 05/30/25 19:53 BUN 18 mg/dL (6-20) 05/30/25 19:53 Creatinine 1.2 mg/dL (0.5-0.9) H 05/30/25 19:53 GFR Calculation 48.2 mL/min (90-130) L 05/30/25 19:53 Glucose 182 mg/dL (65-115) H 05/30/25 19:53 Calculated Osmolality 293 mOsm/kg (285-295) 05/30/25 19:53 Calcium 9.4 mg/dL (8.5-10.5) 05/30/25 19:53 Total Bilirubin 0.3 mg/dL (0.15-1.2) 05/30/25 19:53 AST 15 U/L (0-32) 05/30/25 19:53 ALT 21 U/L (0-33) 05/30/25 19:53 Alkaline Phosphatase 47 U/L (35-105) 05/30/25 19:53 Troponin T Baseline 8 ng/L (0-10) 05/30/25 19:53 Troponin T 60 Minute 7.32 ng/L (0-10) 05/30/25 20:47 Delta Troponin T -0.68 ABS# (0-10) L 05/30/25 20:47 Total Protein 7.0 g/dL (6.6-8.7) 05/30/25 19:53 Albumin 4.4 g/dL (3.5-5.2) 05/30/25 19:53 Globulin 2.6 g/dL (1.3-4.6) 05/30/25 19:53 All radiology interpretation(s) finalized by discharge EKG Data EKG 1: Interpretation: Chest X-Ray 05/30/25 20:28 IMPRESSION: No acute findings. EKG time 1950, read 1952. Sinus rhythm with sinus arrhythmia. Rate 90. [place] normal. QTc 380. Other intervals are normal. No ST wave changes. Other EKG comments: Chest X-Ray 05/30/25 20:28 IMPRESSION: No acute findings. Discharge Plan Discharge Patient Disposition: Home Clinical Impression: Chest pain, Acute anxiety Condition: Stable Prescriptions: No Action desipramine 100 mg tablet 100 mg PO DAILY quetiapine 300 mg tablet 300 mg PO QPM oxcarbazepine 300 mg tablet 300 mg PO DAILY metformin 500 mg tablet extended release 24 hr 1,000 mg PO BID Qty: 120 3RF nystatin 100,000 unit/gram ointment 1 applic topical TID 10 Days Qty: 30 0RF fluconazole 150 mg tablet 150 mg PO Q72H 3 Days Qty: 2 0RF aripiprazole [Abilify] 5 mg tablet 5 mg PO DAILY (DME) Blood Glucose Test Strip See Rx Instructions .Route Qty: 100 3RF Rx Instructions: As directed; pt to test 1 x day and prn hypoglycemia omeprazole 40 mg capsule,delayed release(DR/EC) 40 mg PO DAILY Qty: 30 3RF potassium chloride 20 mEq tablet,ER particles/crystals 20 meq PO DAILY Qty: 30 3RF fenofibrate 160 mg tablet 160 mg PO DAILY Qty: 30 3RF atorvastatin 40 mg tablet 40 mg PO DAILY Qty: 30 5RF levetiracetam 500 mg tablet 1,000 mg PO BID Qty: 120 2RF alprazolam [Xanax] 2 mg Tablet 2 mg PO TID PRN (Reason: Anxiety) cyanocobalamin (vitamin B-12) 1,000 mcg tablet 1,000 mcg PO DAILY (DME) lancet-gluc asfch-[id number]-[id number] Kit See Rx Instructions .Route Qty: 1 0RF Rx Instructions: As directed (DME) blood-glucose meter [Blood Glucose Monitoring] Kit See Rx Instructions .Route Qty: 1 0RF Rx Instructions: As directed (DME) Blood Glucose Test Strip See Rx Instructions .Route Qty: 50 0RF Rx Instructions: As directed ramelteon 8 mg tablet 8 mg PO QPM Eliquis 5 mg tablet 5 mg PO BID metoprolol tartrate 100 mg tablet 100 mg PO BID isosorbide dinitrate 20 mg tablet 20 mg PO BID ferrous sulfate [FeroSul] 325 mg (65 mg iron) tablet 325 mg PO QAM lisinopril 2.5 mg tablet 2.5 mg PO DAILY Ozempic 1 mg/dose (4 mg/3 mL) pen injector 1 mg SUBCUT Q7D Rx Instructions: Fridays coenzyme Q10 [Co Q-10] 100 mg Capsule 100 mg PO DAILY desvenlafaxine succinate [Pristiq] 100 mg tablet extended release 24 hr 100 mg PO QAM Discharge Orders: Discharge ED (Routine); Ordered 05/30/25 Ordered By: John Yo Referrals: Dionna Valdivia DO [Primary Care Provider, STORE FACILITY TECHNICIAN] - 1-3 days Patient Instructions: Chest Pain (ED), Anxiety (ED), Opioid Safety, Pain Management, Patient Portal & Jose J Instructions Activity Restrictions/Additional Instructions: Return for any problems. Print Language: Serbian Coding Level of Care Code ED Commercial Decorator for Marci Helms
[2025-05-30 21:20] VITALS: BP 134/81; PULSE 99; RESP 20; TEMP 36.1; O2SAT 94
== END 2025-05-30 21:22 | disposition home or self-care (01) ==
PROVIDERS: Emergency Provider Emergency Medicine; PCP Family Medicine
DX: R07.9 Chest pain, unspecified (principal); F41.8 Other specified anxiety disorders; Z79.84 Long term (current) use of oral hypoglycemic drugs; Z79.01 Long term (current) use of anticoagulants; J44.9 Chronic obstructive pulmonary disease, unspecified; I10 Essential (primary) hypertension; Z86.73 Personal history of transient ischemic attack (TIA), and cerebral infarction without residual deficits; E11.9 Type 2 diabetes mellitus without complications
CPT/HCPCS: 36415; 71045; 80053; 84484; 85025; 93005; 96374; 96375; 99285; J2270; J2405